=== PATIENT | female | born 1940 | race Caucasian/White ===

== ENCOUNTER → 2017-03-03 | Outpatient (CLI) | payer MEDICARE, OTHER ==
[~2017-03-03] MED LIST: ACET-1311 PO; ASCA500 PO; ASPI81TA28 PO; ATEN100T PO; CARB1SOL OPB; CHOL100010 PO; CLX/20 PO; GLIM1TAB2 PO; HYDR-4330 PO; LOSA100T33 PO; LPT/20 PO; MULT-506 PO; NRV/10 PO; SYN88 PO
[2017-03-03 12:39] LABS: BASO % 0.2 %; BASO ABS # 0.02 K/uL (0-0.2); COMPLETE YES; EOS % 2.1 %; IG% 0.4 %; LYMPH % 7.9 %; LYMPH ABS # 0.88 K/uL (1.2-3.4); MEAN CELL VOLUME 95.9 fL (80-100); MEAN CORPUSCULAR HGB CONC 32.3 g/dl (32-36); MEAN PLATELET VOLUME 10.5 fL (7.4-10.4); MONO % 7.1 %; NEUT % 82.3 %; PLATELET COUNT 288 K/uL (130-400); RED BLOOD COUNT 3.65 M/uL (4.2-5.4); WHITE BLOOD COUNT 11.19 K/uL (4.8-10.8)
[2017-03-03 13:20] LABS: ESTIMATED AVERAGE GLUCOSE 148 mg/dl; HA1C FLAG Normal (Normal)
[2017-03-03 14:36] LABS: URINE PROTIEN/CREAT RATIO 0.1 (0-0.2); URINE TOTAL PROTEIN 15.9 mg/dl (0-11.9)
[2017-03-03 14:56] LABS: ALB/GLOB RATIO 0.9 (0.9-2); ALKALINE PHOSPHATASE 104 U/L (45-117); ALT/SGPT 18 U/L (12-78); AST/SGOT 14 U/L (15-37); BLOOD UREA NITROGEN 39 mg/dl (7-18); BUN/CREATININE RATIO 26.2 (10-20); CALCIUM 8.8 mg/dl (8.5-10.1); CARBON DIOXIDE 24 mmol/L (21-32); CHLORIDE 107 mmol/L (98-107); CHOLESTEROL 146 mg/dl (0-200); CHOLESTEROL/HDL RATIO 1.9; GLUCOSE 164 mg/dl (70-99); HDL CHOLESTEROL 76 mg/dl; LDL CHOLESTEROL CALCULATED 49 mg/dl; POTASSIUM 4.1 mmol/L (3.5-5.1); SODIUM 140 mmol/L (136-145); TRIGLYCERIDES 107 mg/dl (0-150); VERY LOW DENSITY LIPOPROT CALC 21 mg/dl
== END | disposition home or self-care (01) ==
LOC: C.LABPBG 09:26
PROVIDERS: ATTEND Internal Medicine Geriatric Medicine
DX: I12.9 Hypertensive chronic kidney disease with stage 1 through stage 4 chronic kidney disease, or unspecified chronic kidney disease (principal); N18.3 Chronic kidney disease, stage 3 (moderate); E03.9 Hypothyroidism, unspecified; D64.9 Anemia, unspecified; E55.9 Vitamin D deficiency, unspecified; M48.00 Spinal stenosis, site unspecified; E11.22 Type 2 diabetes mellitus with diabetic chronic kidney disease

== ENCOUNTER → 2017-04-15 | Outpatient (CLI) | payer MEDICARE, OTHER ==
--- NOTE | 2017-04-15 14:10 | MAMMOGRAPHY REPORT ---
BILATERAL DIGITAL SCREENING MAMMOGRAM WITH CAD: 04/15/2017 CLINICAL HISTORY: Routine screening. Patient has no complaints. TECHNIQUE: Current study was also evaluated with a Computer Aided Detection (CAD) system. Bilatera l CC and MLO views were obtained. COMPARISON: Comparison is made to exams dated: 01/14/2016 mammogram, 01/11/2015 mammogram, 01/05/2014 mammogram, 12/31/2012 mammogram, 12/25/2011 mammogram, and 12/23/2010 mammogram - [facility] enter. BREAST COMPOSITION: There are scattered areas of fibroglandular density in both breasts. FINDINGS: No suspicious masses, calcifications, or areas of architectural distortion are noted in e ither breast. There has been no significant interval change compared to prior exams. IMPRESSION: ACR BI-RADS CATEGORY 1: NEGATIVE There is no mammographic evidence of malignancy. A 1 year screening mammogram is recommended. The p atient will receive written notification of the results. Approximately 10% of breast cancers are not detected with mammography. A negative mammographic repor t should not delay biopsy if a clinically suggestive mass is present. Brittany Sun M.D. ah/:04/15/2017 07:43:15 [place]er: Aimee YE(Shireen)(M), [facility] letter sent: Normal 1/2 BI-RADS Code: ACR BI-RADS Category 1: Negative
== END | disposition home or self-care (01) ==
LOC: C.MAMM 07:12
PROVIDERS: ATTEND Internal Medicine Geriatric Medicine
DX: Z12.31 Encounter for screening mammogram for malignant neoplasm of breast (principal)

== ENCOUNTER → 2017-06-04 | Outpatient (CLI) | payer MEDICARE, OTHER ==
[~2017-06-04] MED LIST changes: +LOSA100T26 PO; -LOSA100T33 PO
[2017-06-04 12:01] LABS: BASO % 0.4 %; BASO ABS # 0.03 K/uL (0-0.2); COMPLETE YES; EOS % 2.5 %; HEMATOCRIT 34.1 % (37-47); IG% 0.3 %; LYMPH % 17.8 %; LYMPH ABS # 1.33 K/uL (1.2-3.4); MEAN CELL VOLUME 93.7 fL (80-100); MEAN CORPUSCULAR HEMOGLOBIN 31.3 pg (25-34); MEAN CORPUSCULAR HGB CONC 33.4 g/dl (32-36); MEAN PLATELET VOLUME 10.5 fL (7.4-10.4); MONO % 6.9 %; NEUT % 72.1 %; PLATELET COUNT 254 K/uL (130-400); RED BLOOD COUNT 3.64 M/uL (4.2-5.4); WHITE BLOOD COUNT 7.49 K/uL (4.8-10.8)
[2017-06-04 12:38] LABS: BLOOD UREA NITROGEN 34 mg/dl (7-18); BUN/CREATININE RATIO 26.1 (10-20); CALCIUM 8.8 mg/dl (8.5-10.1); CARBON DIOXIDE 27 mmol/L (21-32); CHLORIDE 106 mmol/L (98-107); GLUCOSE 149 mg/dl (70-99); POTASSIUM 4.4 mmol/L (3.5-5.1); SODIUM 139 mmol/L (136-145)
== END | disposition home or self-care (01) ==
LOC: C.LABPBG 08:48
PROVIDERS: ATTEND Internal Medicine Geriatric Medicine
DX: E03.9 Hypothyroidism, unspecified (principal); N18.3 Chronic kidney disease, stage 3 (moderate); I12.9 Hypertensive chronic kidney disease with stage 1 through stage 4 chronic kidney disease, or unspecified chronic kidney disease

== ENCOUNTER → 2017-06-29 | Outpatient (CLI) | payer MEDICARE | END | disposition home or self-care (01) | LOC: C.MAMM 13:41 | PROVIDERS: ATTEND Internal Medicine Geriatric Medicine | DX: E55.9 Vitamin D deficiency, unspecified (principal); M48.00 Spinal stenosis, site unspecified; M85.852 Other specified disorders of bone density and structure, left thigh; M85.851 Other specified disorders of bone density and structure, right thigh ==

== ENCOUNTER → 2017-10-06 | Outpatient (CLI) | payer MEDICARE ==
[~2017-10-06] MED LIST changes: -LOSA100T26 PO; +LOSA100T33 PO
== END | disposition home or self-care (01) ==
LOC: C.LABPBG 07:17
PROVIDERS: ATTEND Internal Medicine Geriatric Medicine
DX: Z00.00 Encounter for general adult medical examination without abnormal findings (principal); E03.9 Hypothyroidism, unspecified

== ENCOUNTER → 2017-11-20 | Outpatient (CLI) | payer MEDICARE ==
[~2017-11-20] MED LIST changes: -LPT/20 PO; +LPT20 PO; +RABE20TA5 PO
[2017-11-20 16:44] LABS: BASO % 0.3 %; BASO ABS # 0.03 K/uL (0-0.2); EOS % 1.3 %; EOS ABS # 0.14 K/uL (0-0.5); HEMATOCRIT 35.3 % (37-47); HEMOGLOBIN 11.8 g/dL (12.0-16.0); IG# 0.02 K/uL (0.00-0.02); LYMPH % 18.6 %; LYMPH ABS # 1.99 K/uL (1.2-3.4); MEAN CELL VOLUME 95.9 fL (80-100); MEAN CORPUSCULAR HEMOGLOBIN 32.1 pg (25-34); MEAN CORPUSCULAR HGB CONC 33.4 g/dl (32-36); MEAN PLATELET VOLUME 10.2 fL (7.4-10.4); MONO % 6.5 %; MONO ABS # 0.69 K/uL (0.11-0.59); NEUT % 73.1 %; NEUT ABS # 7.82 K/uL (1.4-6.5); PLATELET COUNT 287 K/uL (130-400); RED CELL DISTRIBUTION WIDTH CV 13.1 % (11.5-14.5); WHITE BLOOD COUNT 10.69 K/uL (4.8-10.8)
[2017-11-20 17:51] LABS: ALBUMIN 3.7 gm/dl (3.4-5.0); ALT/SGPT 19 U/L (12-78); AST/SGOT 16 U/L (15-37); BLOOD UREA NITROGEN 36 mg/dl (7-18); CALCIUM 8.4 mg/dl (8.5-10.1); CARBON DIOXIDE 25 mmol/L (21-32); CREATININE 1.43 mg/dl (0.60-1.20); GLUCOSE 158 mg/dl (70-99); LIPASE 138 U/L (73-393); POTASSIUM 4.3 mmol/L (3.5-5.1); SODIUM 136 mmol/L (136-145)
[2017-11-20 17:54] LABS: ALKALINE PHOSPHATASE 113 U/L (45-117); TOTAL PROTEIN 8.2 gm/dl (6.4-8.2)
== END | disposition home or self-care (01) ==
LOC: C.LABPBG 13:30
PROVIDERS: ATTEND Internal Medicine Geriatric Medicine
DX: R10.31 Right lower quadrant pain (principal); R11.2 Nausea with vomiting, unspecified

== ENCOUNTER → 2017-11-25 | Outpatient (CLI) | payer MEDICARE ==
[~2017-11-25] MED LIST changes: -RABE20TA5 PO
--- NOTE | 2017-11-25 12:42 | DIAGNOSTIC IMAGING REPORT ---
ABDOMEN AND PELVIS CT WITHOUT CONTRAST CT DOSE: 518.25 mGy.cm HISTORY: R10.31 Abdominal pain, RLQ (right lower quadrant)R11.2 Nausea an TECHNIQUE: Multiaxial CT images of the abdomen and pelvis were performed without contrast. A dose lowering technique was utilized adhering to the principles of ALARA. COMPARISON STUDY: Abdomen and pelvis CT 04/09/2016. FINDINGS: The lung bases are clear. No pneumoperitoneum. No pneumatosis. No suspicious lytic or blastic osseous lesions. Prior L5 posterior decompression is again noted. Small fat-containing hiatal hernia. Trace pericardial fluid, unchanged. Cholecystectomy. The unenhanced liver, spleen, adrenal glands, and pancreas are unremarkable. Mild dilatation of the common bile duct, unchanged. Stable calcified 7 mm splenic artery aneurysm. No retroperitoneal lymphadenopathy. No hydronephrosis. Mild right cortical renal scarring, unchanged. Stable 1.3 cm exophytic hypodense lesion within the upper pole the left kidney. This is incompletely characterized on this noncontrast study but statistically represents a cyst. Multiple duodenal diverticula. The bladder is unremarkable. Prior hysterectomy and appendectomy. Suboptimal evaluation for bowel pathology due to the lack of intravenous and oral contrast. However, no definite bowel wall thickening or obstruction. A few jejunal diverticula. No evidence for diverticulitis. There are few tiny scattered fat-containing midline ventral hernias. These are all below the level of the umbilicus. The neck of the largest hernia measures 1.3 cm. These hernias have decreased in size from the prior study. No evidence for an inguinal hernia. IMPRESSION: 1. No definite bowel wall thickening or obstruction. 2. Small bowel and large bowel diverticula. No evidence for diverticulitis. 3. A few tiny fat-containing midline ventral hernias as described above. Some of these have decreased in size. 4. No evidence for inguinal hernia. 5. Additional findings as described above. Electronically signed by: Umang Martino M.D. 11/25/2017 12:41 PM Dictated Date/Time: 11/25/2017 12:23 PM
== END | disposition home or self-care (01) ==
LOC: C.CTS 11:40
PROVIDERS: ATTEND Physician Assistant
DX: R11.2 Nausea with vomiting, unspecified (principal); R10.31 Right lower quadrant pain

== ENCOUNTER → 2017-12-04 | Day surgery (SDC) | payer MEDICARE ==
[~2017-12-04] VITALS: Ht 149.9 cm; Wt 74.1 kg
[~2017-12-04] MED LIST changes: +LIDOCAINE HCL 2% 2 ML VIAL (20MG/ML) ONE; +PROPOFOL IV EMULSION 10 MG/ML 20 ML VIAL IV ONE; +SODIUM CHLORIDE 0.9% 500ML 500 ML IV ONE
--- NOTE | 2017-12-04 10:01 | Endo History and Physical ---
History & Physical Date of Service: Dec 04, 2017. Chief Complaint: GERD Referring Physician: Dr. Dickson History of Present Illness 77 yo CF who presents for EGD secondary to GERD. Past Medical History Diabetes, Arthritis, ASHD, Gastrointestinal Disorder, Reflux, Blood Dyscrasias, High Cholesterol, Sleep Apnea, Hypertension, Thyroid Disease, Kidney Disease, Depression Past Surgical History Hx Cardiac Surgery: Yes (CARDIAC CATH NO STENT-YRS AGO) Hx Internal Defibrillator: No Hx Pacemaker: No Hx Abdominal Surgery: Yes (C SECTION X 3, HUSTERECTOMY,APPENDECTOMY,ABD SURG FOR PRFORATED BOWEL,) Hx Post-Op Nausea and Vomiting: No Hx Cancer Surgery: No Hx Thoracic Surgery: No Hx Orthopedic: Yes (LUMBAR SURG, R RCR X 3, L RCR ) Hx Urinary Tract Surgery: No Social History Smoking Status: Never Smoker Hx Substance Use: No Hx Alcohol Use: No Allergies Coded Allergies: Adhesives (Verified Allergy, Unknown, red/blistered skin, 05/16/16) Carvedilol (Unverified Allergy, Unknown, UNKNOWN, 05/16/16) Latex1 -Allergic Contact Dermititis (Verified Allergy, Unknown, CONTACT DERMATITIS, 05/16/16) Cephalexin (Verified Adverse Reaction, Intermediate, DIARRHEA, 05/16/16) Oxycodone (Verified Adverse Reaction, Intermediate, itching, 05/16/16) Butter Oil (Unverified Adverse Reaction, Unknown, DIARRHEA, 05/16/16) Fentanyl (Unverified Adverse Reaction, Unknown, DIARRHEA, 05/16/16) Fluoxetine (Unverified Adverse Reaction, Unknown, DIARRHEA, 05/16/16) Levofloxacin (Verified Adverse Reaction, Unknown, DIARRHEA, 05/16/16) Meperidine (Verified Adverse Reaction, Unknown, HEADACHES, 05/16/16) Metformin (Unverified Adverse Reaction, Unknown, DIARRHEA, 05/16/16) Omeprazole (Verified Adverse Reaction, Unknown, HALLUCINATIONS, 05/16/16) Phenobarbital (Verified Adverse Reaction, Unknown, HALLUCINATIONS, 05/16/16) Sulfa Drugs (Verified Adverse Reaction, Unknown, DIARRHEA, 05/16/16) Current Medications Reported Home Medications Medications Dose Route/Sig Max Daily Dose Days Date Category Dose Instructions Lortab 5-325 mg (Hydrocodone-Acetaminophen) 1 Tab Tab 5 Mg PO TID 05/16/16 Rx Refresh (Carboxymethylcellulose Sodium) 1 % Floyd 1-2 Drops OPB BID 05/15/16 Reported Tylenol (Acetaminophen) 325 Mg Tab 650 Mg PO PRN 05/08/16 Reported Losartan Potassium/Hydroc (Losartan Potassium & Hydrochlo) 1 Tab Tab 1 Tab PO QAM 90 05/08/16 Reported 100/25 MG Citalopram Hydrobromide (Citalopram) 20 Mg Tab 20 Mg PO HS 04/04/16 Reported Atorvastatin Calcium (Atorvastatin) 20 Mg Tab 20 Mg PO QAM 04/04/16 Reported Amlodipine Besylate 10 Mg Tab 10 Mg PO QAM 04/04/16 Reported Synthroid (Levothyroxine Sodium) 88 Mcg Tab 88 Mcg PO QAM 04/04/16 Reported Glimepiride 1 Mg Tab 0.5 Mg PO QAM 04/04/16 Reported Aspirin Ec (Aspirin) 81 Mg Tab 81 Mg PO HS 11/23/14 Reported Vitamin C (Ascorbic Acid) 500 Mg Tab 500 Mg PO QAM 11/23/14 Reported Multivitamin (Multivitamins) Tab 1 Tab PO QAM 11/23/14 Reported Vitamin D (Cholecalciferol) 1,000 Inter.unit Tab 2,000 Inter.unit PO QAM 11/23/14 Reported Tenormin (Atenolol) 100 Mg Tab 100 Mg PO QAM 06/10/12 Reported Physical Exam General Appearance: WD/WN, no apparent distress Respiratory/Chest: Auscultation: breath sounds normal Cardiovascular: Heart Auscultation: RRR Abdomen: Bowel Sounds: normal Inspection & Palpation: soft, non-distended, no tenderness, guarding & rebound Assessment and Plan Assessment: 77 yo CF who presents for EGD secondary to GERD. Plan: Proceed with EGD
[2017-12-04 10:12] VITALS: Ht 149.9 cm; Wt 74.1 kg
--- NOTE | 2017-12-04 10:47 | GI REPORT ---
Procedure Date: 12/04/2017 10:35 AM Procedure: Upper GI endoscopy Indications: Gastro-esophageal reflux disease Medicines: Monitored Anesthesia Care Complications: No immediate complications. Estimated Blood Loss: Estimated blood loss: none. Procedure: Pre-Anesthesia Assessment: - Prior to the procedure, a History and Physical was performed, and patient medications and allergies were reviewed. The patient's tolerance of previous anesthesia was also reviewed. The risks and benefits of the procedure and the sedation options and risks were discussed with the patient. All questions were answered, and informed consent was obtained. Prior Anticoagulants: The patient has taken aspirin, last dose was 1 day prior to procedure. ASA Grade Assessment: III - A patient with severe systemic disease. After reviewing the risks and benefits, the patient was deemed in satisfactory condition to undergo the procedure. After obtaining informed consent, the endoscope was passed under direct vision. Throughout the procedure, the patient's blood pressure, pulse, and oxygen saturations were monitored continuously. The On-site loaner was introduced through the mouth, and advanced to the second part of duodenum. The upper GI endoscopy was accomplished without difficulty. The patient tolerated the procedure well. Findings: The esophagus was normal. A small hiatal hernia was present. Localized mild inflammation characterized by erythema was found in the gastric antrum. Biopsies were taken with a cold forceps for histology. The examined duodenum was normal. Impression: - Normal esophagus. - Small hiatal hernia. - Gastritis. Biopsied. - Normal examined duodenum. Recommendation: - Resume previous diet. - Use sucralfate tablets 1 gram PO QID for 10 days. - Continue present medications. - Await pathology results. - Return to GI office as previously scheduled. Adrián Cabezas DO 12/04/2017 10:47:28 AM This report has been signed electronically. Note Initiated On: 12/04/2017 10:35 AM I attest to the content of the Intraoperative Record and orders documented therein, exceptions below
--- NOTE | 2017-12-04 10:50 | Discharge Instructions ---
Endoscopy Patient Instructions Date / Procedure(s) Performed Dec 04, 2017. EGD Allergy Information Coded Allergies: Adhesives (Verified Allergy, Unknown, red/blistered skin, 12/04/17) Carvedilol (Unverified Allergy, Unknown, UNKNOWN, 12/04/17) Latex1 -Allergic Contact Dermititis (Verified Allergy, Unknown, CONTACT DERMATITIS, 12/04/17) Cephalexin (Verified Adverse Reaction, Intermediate, DIARRHEA, 12/04/17) Oxycodone (Verified Adverse Reaction, Intermediate, itching, 12/04/17) Butter Oil (Unverified Adverse Reaction, Unknown, DIARRHEA, 12/04/17) Fentanyl (Unverified Adverse Reaction, Unknown, DIARRHEA, 05/16/16) Fluoxetine (Unverified Adverse Reaction, Unknown, DIARRHEA, 05/16/16) Levofloxacin (Verified Adverse Reaction, Unknown, DIARRHEA, 05/16/16) Meperidine (Verified Adverse Reaction, Unknown, HEADACHES, 05/16/16) Metformin (Unverified Adverse Reaction, Unknown, DIARRHEA, 05/16/16) Omeprazole (Verified Adverse Reaction, Unknown, HALLUCINATIONS, 05/16/16) Phenobarbital (Verified Adverse Reaction, Unknown, HALLUCINATIONS, 05/16/16) Sulfa Drugs (Verified Adverse Reaction, Unknown, DIARRHEA, 05/16/16) Discharge Date / Findings Dec 04, 2017. Gastritis s/p biopsies Hiatal hernia Medication Instructions Stopped Medication(s): ASA 81 mg OK to resume all medications today as prescribed Reported Home Medications Medications Dose Route/Sig Max Daily Dose Days Date Category Dose Instructions Lortab 5-325 mg (Hydrocodone-Acetaminophen) 1 Tab Tab 5 Mg PO TID 05/16/16 Rx Refresh (Carboxymethylcellulose Sodium) 1 % Floyd 1-2 Drops OPB BID 05/15/16 Reported Tylenol (Acetaminophen) 325 Mg Tab 650 Mg PO PRN 05/08/16 Reported Hyzaar 12.5MG/100MG (Hctz/Losartan) 1 Tab Tab 1 Tab PO QAM 90 05/08/16 Reported 100/25 MG Citalopram Hydrobromide (Citalopram) 20 Mg Tab 20 Mg PO HS 04/04/16 Reported Lipitor (Atorvastatin Calcium) 20 Mg Tab 20 Mg PO QAM 04/04/16 Reported Amlodipine Besylate 10 Mg Tab 10 Mg PO QAM 04/04/16 Reported Synthroid (Levothyroxine Sodium) 88 Mcg Tab 88 Mcg PO QAM 04/04/16 Reported Glimepiride 1 Mg Tab 0.5 Mg PO QAM 04/04/16 Reported Aspirin Ec (Aspirin) 81 Mg Tab 81 Mg PO HS 11/23/14 Reported Vitamin C (Ascorbic Acid) 500 Mg Tab 500 Mg PO QAM 11/23/14 Reported Multivitamin (Multivitamins) Tab 1 Tab PO QAM 11/23/14 Reported Vitamin D (Cholecalciferol) 1,000 Inter.unit Tab 2,000 Inter.unit PO QAM 11/23/14 Reported Tenormin (Atenolol) 100 Mg Tab 100 Mg PO QAM 06/10/12 Reported Provider Instructions Activity Restrictions - No exercising or heavy lifting for 24 hours. - Do not drink alcohol the day of the procedure. - Do not drive a car or operate machinery until the day after the procedure. - Do not make any important decisions or sign important papers in 24 hours after the procedure. Following Day: - Return to full activity which may include returning to work/school. Diet Start your diet with liquids and light foods (jello, soup, juice, toast). Then eat your usual diet if not nauseated. Treatment For Common After Affects For mild abdominal pain, bloating, or excessive gas: - Rest - Eat lightly - Lie on right side Follow-Up Information Follow-up with Dr Hernandez Dickson as scheduled Anesthesia Information What You Should Know You have had a procedure that required some medicine to reduce anxiety and discomfort. This treatment is called moderate sedation. After receiving the treatment, you may be sleepy, but you will be able to breathe on your own. The effects of the treatment may last for several hours. Follow these instructions along with Activity/Diet recommendations noted above: * Do NOT do anything where dizziness or clumsiness would be dangerous. * Rest quietly at home today, then you can be up and about tomorrow. * Have a responsible person stay with you the rest of today. * You may have had an I.V. today. If so, you may take the dressing off later today. Recommendations Call your doctor if: * Trouble breathing * Continuous vomiting for more than 24 hours * Temperature above 101 degrees * Severe abdominal pain or bloating * Pain not relieved by pain medicine ordered * There is increased drainage or redness from any incision * A large amount of rectal bleeding greater than 2-3 tablespoons. (If you had a polyp/s removed or have hemorrhoids, a small amount of blood - from the rectum is to be expected.) * You have any unanswered questions or concerns. IN THE EVENT OF A SERIOUS EMERGENCY, GO TO THE NEAREST EMERGENCY ROOM Your discharge instructions were prepared by provider Adrián Cabezas. Patient Instructions Signature Page Margaret Breaux Patient (or Guardian) Signature/Date: I have read and understand the instructions given to me by my caregivers. Caregiver/RN/Doctor Signature/Date: The above-named patient and/or guardian has received patient instructions on this date. + Original Patient Signature Page (only) stays with chart. Please make copy for patient.
--- NOTE | 2017-12-04 11:16 | Anesthesiology Progress Note ---
Anesthesia Post Op Note Date & Time Dec 04, 2017 at 11:16 Vital Signs Pain Intensity: 0 Vital Signs Past 12 Hours Date Time Temp Pulse Resp B/P (MAP) Pulse Ox O2 Delivery O2 Flow Rate FiO2 12/04/17 11:04 62 20 130/59 (82) 98 Room Air 12/04/17 10:49 70 20 108/49 (68) 97 Room Air 12/04/17 10:30 36.9 69 20 168/75 (106) 97 Room Air Notes Mental Status: alert / awake / arousable, participated in evaluation Pt Amnestic to Procedure: Yes Nausea / Vomiting: adequately controlled Pain: adequately controlled Airway Patency, RR, SpO2: stable & adequate BP & HR: stable & adequate Hydration State: stable & adequate Anesthetic Complications: no major complications apparent
[2017-12-04 11:18] VITALS: BP 145/52; PULSE 69; O2SAT 98
== END | disposition home or self-care (01) ==
LOC: C.GI 09:39
PROVIDERS: ATTEND Internal Medicine
DX: K21.9 Gastro-esophageal reflux disease without esophagitis (principal); K44.9 Diaphragmatic hernia without obstruction or gangrene; K29.60 Other gastritis without bleeding; E11.9 Type 2 diabetes mellitus without complications; I25.10 Atherosclerotic heart disease of native coronary artery without angina pectoris; E78.00 Pure hypercholesterolemia, unspecified; Z91.040 Latex allergy status; Z90.89 Acquired absence of other organs; Z90.710 Acquired absence of both cervix and uterus; Z98.890 Other specified postprocedural states; Z79.899 Other long term (current) drug therapy; Z79.82 Long term (current) use of aspirin; Z88.1 Allergy status to other antibiotic agents; Z88.2 Allergy status to sulfonamides; Z88.5 Allergy status to narcotic agent

== ENCOUNTER → 2017-12-10 | Outpatient (CLI) | payer OTHER ==
[~2017-12-10] MED LIST changes: -LIDOCAINE HCL 2% 2 ML VIAL (20MG/ML) ONE; -PROPOFOL IV EMULSION 10 MG/ML 20 ML VIAL IV ONE; -SODIUM CHLORIDE 0.9% 500ML 500 ML IV ONE
--- NOTE | 2017-12-10 12:48 | DIAGNOSTIC IMAGING REPORT ---
(RENAL)RETROPERITON COMP HISTORY: Hypertension I10 [id number] PAD (peripheral artery disease)N18.3 Stage COMPARISON: None. FINDINGS: Right kidney: 8.6 cm maximum dimension. No evidence for hydronephrosis. Cortical scarring and thinning throughout. Left kidney: Maximum dimension 9.6 cm. 1.8 cm cyst. No evidence for hydronephrosis. Considerable cortical scarring and cortical thinning Bladder: No bladder wall thickening. The bilateral ureteral jets were identified. IMPRESSION: 1. Considerable cortical scarring and thinning of both kidneys. 2. No evidence hydronephrosis. The above report was generated using voice recognition software. It may contain grammatical, syntax or spelling errors. Electronically signed by: Nguyễn Garcia M.D. 12/10/2017 12:47 PM Dictated Date/Time: 12/10/2017 12:45 PM
[2017-12-10 13:07] LABS: HEMATOCRIT 34.7 % (37-47); HEMOGLOBIN 11.9 g/dL (12.0-16.0); MEAN CORPUSCULAR HEMOGLOBIN 31.9 pg (25-34); MEAN CORPUSCULAR HGB CONC 34.3 g/dl (32-36); MEAN PLATELET VOLUME 9.9 fL (7.4-10.4); PLATELET COUNT 288 K/uL (130-400); RED CELL DISTRIBUTION WIDTH CV 12.8 % (11.5-14.5); RED CELL DISTRIBUTION WIDTH SD 43.5 fL (36.4-46.3); WHITE BLOOD COUNT 8.56 K/uL (4.8-10.8)
[2017-12-10 13:35] LABS: ALBUMIN 3.7 gm/dl (3.4-5.0); BLOOD UREA NITROGEN 29 mg/dl (7-18); CALCIUM 8.7 mg/dl (8.5-10.1); CARBON DIOXIDE 27 mmol/L (21-32); CREATININE 1.38 mg/dl (0.60-1.20); GLUCOSE 124 mg/dl (70-99); PHOSPHORUS 4.8 mg/dl (2.5-4.9); POTASSIUM 4.3 mmol/L (3.5-5.1); SODIUM 131 mmol/L (136-145)
== END | disposition home or self-care (01) ==
LOC: C.ULTR 12:08
PROVIDERS: ATTEND Internal Medicine Nephrology
DX: D64.9 Anemia, unspecified (principal); I12.9 Hypertensive chronic kidney disease with stage 1 through stage 4 chronic kidney disease, or unspecified chronic kidney disease; I73.9 Peripheral vascular disease, unspecified; N18.3 Chronic kidney disease, stage 3 (moderate); E55.9 Vitamin D deficiency, unspecified

== ENCOUNTER → 2018-02-09 | Outpatient (CLI) | payer MEDICARE ==
[2018-02-09 13:13] LABS: BASO % 0.2 %; BASO ABS # 0.02 K/uL (0-0.2); EOS % 2.5 %; EOS ABS # 0.21 K/uL (0-0.5); HEMATOCRIT 34.9 % (37-47); HEMOGLOBIN 11.5 g/dL (12.0-16.0); IG# 0.02 K/uL (0.00-0.02); LYMPH % 15.4 %; MEAN CELL VOLUME 95.9 fL (80-100); MEAN CORPUSCULAR HEMOGLOBIN 31.6 pg (25-34); MEAN PLATELET VOLUME 10.2 fL (7.4-10.4); MONO % 6.6 %; MONO ABS # 0.56 K/uL (0.11-0.59); NEUT % 75.1 %; NEUT ABS # 6.32 K/uL (1.4-6.5); PLATELET COUNT 286 K/uL (130-400); RED CELL DISTRIBUTION WIDTH CV 13.3 % (11.5-14.5); WHITE BLOOD COUNT 8.43 K/uL (4.8-10.8)
[2018-02-09 14:18] LABS: ALBUMIN 3.5 gm/dl (3.4-5.0); ALT/SGPT 36 U/L (12-78); BLOOD UREA NITROGEN 28 mg/dl (7-18); CALCIUM 8.4 mg/dl (8.5-10.1); CARBON DIOXIDE 25 mmol/L (21-32); CHOLESTEROL 161 mg/dl (0-200); CREATININE 1.39 mg/dl (0.60-1.20); GLUCOSE 167 mg/dl (70-99); POTASSIUM 4.1 mmol/L (3.5-5.1); SODIUM 139 mmol/L (136-145)
[2018-02-09 14:29] LABS: ALKALINE PHOSPHATASE 116 U/L (45-117); AST/SGOT 24 U/L (15-37); LDL CHOLESTEROL CALCULATED 62 mg/dl; TOTAL PROTEIN 7.6 gm/dl (6.4-8.2)
[2018-02-10 06:17] LABS: HEMOGLOBIN A1C 7.4 % (4.5-5.6)
== END | disposition home or self-care (01) ==
LOC: C.LABPBG 09:15
PROVIDERS: ATTEND Internal Medicine Geriatric Medicine
DX: I12.9 Hypertensive chronic kidney disease with stage 1 through stage 4 chronic kidney disease, or unspecified chronic kidney disease (principal); E03.9 Hypothyroidism, unspecified; N18.3 Chronic kidney disease, stage 3 (moderate); D64.9 Anemia, unspecified; E55.9 Vitamin D deficiency, unspecified; E11.9 Type 2 diabetes mellitus without complications; E78.5 Hyperlipidemia, unspecified

== ENCOUNTER → 2018-02-17 | Outpatient (CLI) | payer MEDICARE ==
--- NOTE | 2018-02-17 08:16 | DIAGNOSTIC IMAGING REPORT ---
MRI OF THE BRAIN WITHOUT CONTRAST CLINICAL HISTORY: Transient ischemic attack. COMPARISON STUDY: MRI of the brain July 16, [address] May 09, 2015. TECHNIQUE: Utilizing a 1.5 Bea magnet and dedicated coil, multiplanar, multiecho imaging of the brain was performed without IV contrast. FINDINGS: There are no foci of restricted diffusion. No acute intracranial hemorrhage, midline shift or mass effect is present. Moderate cerebral and cerebellar atrophy is noted. White matter T2 hyperintense foci suggest moderate small vessel disease. No intracranial masses are identified on this unenhanced exam. Basilar cisterns are patent. There are no extra axial collections. Mild ventricular dilatation is due to atrophy. Small amount of fluid within left mastoid air cells is unchanged. Calvarial signal is maintained. There is mild mucosal thickening of the ethmoid sinuses. IMPRESSION: 1. No acute intracranial findings. 2. Moderate atrophy and small vessel disease. Electronically signed by: Tariq Ortega M.D. 02/17/2018 8:15 AM Dictated Date/Time: 02/17/2018 8:11 AM
== END | disposition home or self-care (01) ==
LOC: C.MRI 07:40
PROVIDERS: ATTEND Internal Medicine Geriatric Medicine
DX: G45.9 Transient cerebral ischemic attack, unspecified (principal)

== ENCOUNTER → 2018-03-18 | Outpatient (CLI) | payer MEDICARE ==
[~2018-03-18] VITALS: Ht 152.4 cm; Wt 77.4 kg
[2018-03-18 13:03] VITALS: BP 132/64; PULSE 71; Ht 152.4 cm; Wt 77.4 kg
== END | disposition home or self-care (01) ==
LOC: C.NEUR 10:58
PROVIDERS: ATTEND Internal Medicine Pulmonary Disease
DX: G47.33 Obstructive sleep apnea (adult) (pediatric) (principal); E11.9 Type 2 diabetes mellitus without complications; E78.5 Hyperlipidemia, unspecified; K21.9 Gastro-esophageal reflux disease without esophagitis; Z79.899 Other long term (current) drug therapy; Z79.82 Long term (current) use of aspirin; Z88.1 Allergy status to other antibiotic agents; Z88.2 Allergy status to sulfonamides; Z88.8 Allergy status to other drugs, medicaments and biological substances; Z91.040 Latex allergy status

== ENCOUNTER → 2018-06-10 | Outpatient (CLI) | payer MEDICARE ==
[~2018-06-10] MED LIST changes: -ASCA500 PO; -CARB1SOL OPB; -CHOL100010 PO; -CLX/20 PO; -HYDR-4330 PO; +RABE20TA5 PO
--- NOTE | 2018-06-10 15:47 | EEG Procedure Note ---
EEG Procedure Note Date of Service Jun 10, 2018. Start / End Times Start Time: 1028 End Time: [address] Archer History 78-year-old with history of recent seizure activity. Home Medication List Scheduled Acetaminophen (Tylenol), 650 MG PO PRN Amlodipine Besylate (Amlodipine Besylate), 10 MG PO QAM Aspirin (Aspirin Ec), 81 MG PO HS Atenolol (Tenormin), 100 MG PO QAM Atorvastatin (Lipitor), 20 MG PO QAM Glimepiride (Glimepiride), 0.5 MG PO QAM Hctz/Losartan (Hyzaar 12.5MG/100MG), 1 TAB PO QAM Levothyroxine Sodium (Synthroid), 88 MCG PO QAM Multivitamin (Multivitamin), 1 TAB PO QAM Rabeprazole Sodium (Aciphex), 20 MG PO DAILY Description This is a 21 electrode EEG with a single channel dedicated to limited EKG. The electrodes were placed in accordance with the International 10-20 system. Interpretation The predominant background activity consists of a fairly well modulated 9-10 hertz activity seen over the posterior head regions bilaterally spreading anteriorly. This activity attenuates nicely with eye opening and other alerting procedures. A mild amount of muscle and movement artifact activity contaminate the recording entering interpretation from time to time but not to any significant degree overall. Photic stimulation produced some driving response at a few low to mid flash frequencies with no abnormal responses seen. Hyperventilation was not performed. Throughout this recording no focal abnormalities, potentially epileptogenic discharges, or abnormal slow activity was seen. Patient entered the drowsy state from time to time with no further activation and deeper stages of sleep were not recorded. In summary, this study is normal during wakefulness and brief periods of drowsiness. No focal abnormalities are noted and no potentially epileptogenic discharges were seen. Clinical Correlation The absence of potentially epileptogenic activity does not exclude a seizure disorder since inter ictally EEGs can be normal in clinical correlation is required.
== END | disposition home or self-care (01) ==
LOC: C.NEUR 10:10
PROVIDERS: ATTEND Psychiatry & Neurology Neurology
DX: R56.9 Unspecified convulsions (principal)

== ENCOUNTER → 2018-07-08 | Outpatient (CLI) | payer MEDICARE ==
--- NOTE | 2018-07-08 13:14 | DIAGNOSTIC IMAGING REPORT ---
R KNEE 1 OR 2 VIEWS ROUTINE CLINICAL HISTORY: Right knee pain. Right leg edema. COMPARISON: Right knee MRI May 02, 2009. FINDINGS: Alignment of the right knee is anatomic. There is moderate medial compartment joint space narrowing with osteophytosis. There is also joint space narrowing with osteophytosis within the patellofemoral compartment. There is no acute fracture. A small joint effusion is present. There is moderate vascular calcification. IMPRESSION: 1. No acute fracture. 2. 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 3. Small right knee joint effusion. Electronically signed by: Tariq Ortega M.D. 07/08/2018 1:12 PM Dictated Date/Time: 07/08/2018 1:11 PM
--- NOTE | 2018-07-08 13:35 | DIAGNOSTIC IMAGING REPORT ---
ULTRASOUND RIGHT LOWER EXTREMITY VENOUS CLINICAL HISTORY: Right lower extremity edema. COMPARISON STUDY: Right lower extremity venous ultrasound dated 05/15/2014. TECHNIQUE: Real-time, grayscale, and color Doppler sonography of the deep veins of the right lower extremity was performed from the inguinal crease to the calf. Compression and augmentation were utilized. FINDINGS: There is no sonographic evidence of deep venous thrombosis identified in the right lower extremity. The common femoral, superficial femoral, and popliteal veins are patent and normally compressible. The greater saphenous vein and the profunda femoris vein at the junction with the common femoral vein are clear. The visualized calf veins are patent. A popliteal cyst measures 3.9 x 0.7 x 1.5 cm. IMPRESSION: 1. There is no sonographic evidence of deep venous thrombosis identified in the right lower extremity. 2. Popliteal cyst. Electronically signed by: Ridge Valerio M.D. 07/08/2018 1:34 PM Dictated Date/Time: 07/08/2018 1:33 PM
== END | disposition home or self-care (01) ==
LOC: C.ULTRBC 12:17
PROVIDERS: ATTEND Physician Assistant Medical
DX: R60.0 Localized edema (principal); M17.11 Unilateral primary osteoarthritis, right knee; M25.461 Effusion, right knee; M71.21 Synovial cyst of popliteal space [Baker], right knee

== ENCOUNTER 2019-03-20 05:11 | Observation (INO) ==
[2019-03-20 05:20] VITALS: TEMP 98.1
[2019-03-20] MEDS ORDERED: GI COCKTAIL ED USE PO ONE (05:24)
[2019-03-20 05:35] LABS: Basophils # (auto) 0.02 K/uL (0-0.2); Basophils % (auto) 0.2 %; Eosinophils # (auto) 0.09 K/uL (0-0.5); Eosinophils % (auto) 0.7 %; Hematocrit (blood only) 32.6 % (37-47); Hemoglobin 11.3 g/dL (12.0-16.0); Immature Granulocytes # (auto) 0.02 K/uL (0.00-0.02); Immature Granulocytes % (auto) 0.2 %; Lymphocytes # (auto) 0.81 K/uL (1.2-3.4); Lymphocytes % (auto) 6.6 %; Mean Corpuscular Hgb Conc 34.7 g/dL (32-36); Mean Corpuscular Volume 93.7 fL (80-100); Mean Platelet Volume 9.1 fL (7.4-10.4); Monocytes # (auto) 0.66 K/uL (0.11-0.59); Monocytes % (auto) 5.4 %; Neutrophils % (auto) 86.9 %; Platelet Count 234 K/uL (130-400); RDW Coefficient of Variation 12.5 % (11.5-14.5); RDW Standard Deviation 42.1 fL (36.4-46.3); Red Blood Count 3.48 M/uL (4.2-5.4)
[2019-03-20 05:51] LABS: Blood Urea Nitrogen 34 mg/dl (7-18); Carbon Dioxide 25 mmol/L (21-32); Chloride 103 mmol/L (98-107); Est GFR (African American) 43.3; Potassium 4.1 mmol/L (3.5-5.1); Sodium 136 mmol/L (136-145)
[2019-03-20 05:52] LABS: Alanine Aminotransferase 74 U/L (12-78); Albumin Level 3.6 gm/dl (3.4-5.0); Aspartate Aminotransferase 36 U/L (15-37); BUN Creatinine Ratio 25.4 (10-20); Bilirubin Direct 0.1 mg/dl (0-0.2); Calcium 8.6 mg/dl (8.5-10.1); Creatinine Clr Calc Pharmacy 29.5 ml/min; Est GFR (Non-African American) 37.3; Glucose 203 mg/dl (70-99)
[2019-03-20 05:57] LABS: Alkaline Phosphatase 146 U/L (45-117); Bilirubin,Total 0.4 mg/dl (0.2-1); Total Protein 7.5 gm/dl (6.4-8.2); Troponin I < 0.015 ng/ml (0-0.045)
[2019-03-20] MEDS ORDERED: NITROGLYCERIN SL 0.4 MG/TAB TAB SL STA (06:09)
[2019-03-20] MEDS ORDERED: ASPIRIN 81 MG CHEW PO STA (06:09)
[2019-03-20] MEDS ORDERED: fentaNYL citrate 100 MCG/2 ML VIAL IV STA (06:44)
--- NOTE | 2019-03-20 08:04 | XRay Report ---
SINGLE VIEW CHEST CLINICAL HISTORY: Atypical chest pain. FINDINGS: An AP, portable, upright chest radiograph is compared to study dated 12/20/2018 and correlate d with chest CT dated 07/21/2018. The examination is degraded by portable technique and patient rotatio n. The heart is enlarged and there is atherosclerotic calcification of the thoracic aorta. The pulmo nary vasculature is noncongested. Chronic interstitial thickening is similar previous. Atelectasis is noted at the left lung base. No airspace consolidation or large pleural effusion is identified. No p neumothorax is seen. The skeletal structures are osteopenic. The bony thorax is grossly intact. Posto perative change is noted in the left humeral head. IMPRESSION: Cardiomegaly with no acute cardiopulmonary abnormality. Electronically signed by: Ridge Valerio M.D. 03/20/2019 8:03 AM
--- NOTE | 2019-03-20 08:29 | Emergency Department Note ---
Entered by Desiree Ulloa acting as a scribe for ED Provider Note Chief complaint: Chest pain The patient is an 79 year old female presenting to the Emergency Department complaining of intermittent chest pain starting 1 day ago. The patient reports that she has chest pain that radiates across her entire chest. She states that she is nauseous and has had episodes of vomiting and diarrhea. She notes that she has not experienced these symptoms before. 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 She denies any history of heart attack, syncope, lower extremity swelling and recent travel. ROS: See above HPI for pertinent positives & negatives. A total of 10 systems reviewed and were otherwise negative. Past Medical History: Hiatal hernia, sleep apnea, HTN, HLD, Benign essential tremor, Depression, TIA, Macular degeneration. DM, GERD, IBS, Diverticular disease, CKD, Osteoarthritis, Obesity, RLS, Anxiety. Past Surgical History: Cholecystectomy, Thyroidectomy, Cardiac cath, Right sided carotid endarterectomy, Bowel resection, Back surgery, , Appendectomy, Inguinal hernia repair, TIA, Abdominal hysterectomy and bilateral salpingo- oophorectomy, Tubal ligation, Repair of rotator cuff, Blepharoplasty, Lumpectomy of right breast, Reaction to anesthesia, Herniorrhaphy. Family History: Diabetes mellitits, Colon cancer. Social History: Feels safe at home. Never a smoker. Home Medications: Amlodipine 10 mg PO, Vitamin C 500 mg PO, Aspirin low dose 81 mg PO, Atenolol 100 mg PO, Atorvastatin 20 mg PO, Vitamin D3 1000 unit PO, Glimepiride 2 mg PO, [place] 1 - 2 tab PO, Levothyroxine 88 mcg PO, Losartan Hydrochlorothiazide 1 tab PO, Aciphex 20 mg PO. Allergies: Adhesive, Latex, Carvedilol, Omeprazole, Oxycodone, Phenobarbital, Cephalexin, Fentanyl. Fluoxetine, Levofloxacin, Meperidine, Metformin, Sulfa, Butter oil. Physical: Vitals: BP: 161/75, Pulse: 91, Respirations: 18, Temperature: 98.1F, O2 Saturation: 98, Delivery: Room Air. Exam: GENERAL: Patient is anxious appearing and in no acute distress. EYES: No scleral icterus, unremarkable pupils. ENT: Mucous membranes moist, no nasal congestion. NECK: No masses appreciated, no meningismus, trachea is midline. RESPIRATORY: No dyspnea. Clear to auscultation and equal bilaterally. No wheeze, no rhonchi. CARDIOVASCULAR: Regular rate and rhythm. No murmurs, rubs, gallops appreciated. GASTROINTESTINAL: Abdomen soft, non-tender, no peritonitis. Bowel sounds positive. No masses appreciated. Well healed lower abdominal incision. BACK: No midline tenderness, no CVA tenderness EXTREMITIES: Normal motion all extremities, no cyanosis, no edema. NEUROLOGIC: Alert and oriented, no acute motor or sensory deficits, no focal weakness, cranial nerves grossly intact. SKIN: No rash, no jaundice, no diaphoresis. ED Course: 515: Prior Medical Record, Triage/Nursing Notes, Medications reviewed by Me. The patient was evaluated in room B9, and a complete history and physical examination were performed. 609: I reevaluated the patient at this time who reports minimal improvement with GI cocktail. I ordered Aspirin and Nitroglycerin. 15: I discussed the patients case with [facility] [place] admitting team. They will evaluate the patient for further management. Labs reviewed and remarkable for wnl cbc, bmp, lft, trop Vital Signs reviewed and remarkable for HTN Imaging: X ray results are stated below per my interpretation: Chest: 1 view: No infiltrate, no effusion, normal cardiac border. EKG: Per My Interpretation: Indication chest pain: NSR 90 bpm no ectopy no ischemia. Unable to see previous EKGs. QTC 433 Consults: none Blood pressure: Elevated - Referred to Hospitalist Differentials: Cardiac Ischemia (STEMI, NSTEMI, Unstable Angina, etc), Aortic Dissection, Arrhythmia, Pulmonary Embolism, Pneumonia, Pneumothorax, MSK, Infectious,Pericarditis/Myocarditis, Esophageal Rupture, Gastrointestinal amongst other pathologies. Medical Decision Makin yr old female with exertional chest pain. No improvement with GI cocktail. Mild improvement with nitro. Worse with exertion to bathroom though repeat EKG unchanged. CXR looks good. Story not consistent with PE/Dissection. Without breathlessness nor tachy I do not feel CT A at this time indicated. She was stable throughout. Agreeable to hospitalization treatment. Soft abdomen with normal LFTs. No clear evidence infection. Impression: Substernal Chest Pain Alex Martel MD The scribe's documentation has been prepared under my direction and personally reviewed by me in its entirety. I confirm that the note above accurately reflects all work, treatment, procedures, and medical decision making performed by me. Impression & Plan Substernal chest pain Past Med/Surg History Medical History Anxiety Benign essential tremor Chronic kidney disease, stage III (moderate) Depression Diabetes mellitus, type 2 NIDDM Diverticular disease HX DIVERTICULITIS PER RECORDS GERD (gastroesophageal reflux disease) Hiatal hernia History of blood transfusion POST-OP PER RECORDS History of palpitations Hx of intestinal obstruction 50 YEARS AGO PER RECORDS Hyperlipidemia Hypertension IBS (irritable bowel syndrome) Macular degeneration Obesity Osteoarthritis RLS (restless legs syndrome) Sleep apnea NO DEVICE Transient ischemic attack (TIA) 03/2018 Surgical History Family history of reaction to anesthesia SON-HARD TIME WAKING UP. History of appendectomy History of back surgery History of blepharoplasty History of bowel resection History of cardiac cath X2 TOTAL (10+ YEARS AGO)= NO STENTS History of section X3 History of cholecystectomy History of herniorrhaphy VENTRAL HERNIA History of inguinal hernia repair X3 (CHILD) History of lumpectomy of right breast "BENIGN History of repair of rotator cuff RIGHT X3, LEFT X 1 History of right-sided carotid endarterectomy 3+ YEARS AGO History of thyroidectomy History of total abdominal hysterectomy and bilateral salpingo-oophorectomy History of tubal ligation Family History Son Family history of reaction to anesthesia SLOW TO WAKE Brother Family history of diabetes mellitus Sister Family history of diabetes mellitus Mother Family history of diabetes mellitus Uncle Family hx of colon cancer X 3 Social History Preferred Language: Burmese Communication Ability: Effective Beliefs That Will Affect Care: None Current Living Situation: Spouse Feels Safe at Home: Yes Smoking Status: Never smoker Second Hand Exposure: Yes (as a child) Hx Alcohol Use: No Hx Substance Use: No Results & Data Vital Signs Vital Signs - 24 hr 03/20/19 05:17 03/20/19 05:23 03/20/19 05:40 Temperature 36.7 C Temperature Source Oral Sepsis Recent Fever Within 48 Hours No Sepsis Action Taken by Nursing No Action Required Pulse Rate 91 H 91 H 86 Pulse Rate [Apical] Pulse Rate from SpO2 Sensor 92 H Pulse Rhythm [Apical] Respiratory Rate 25 H 28 H 17 Respiratory Effort / Characteristics Non-Labored Respiratory Depth Normal Respiratory Pattern Blood Pressure 161/75 H Blood Pressure [Right Arm] Blood Pressure Mean 103 Blood Pressure Mean [Right Arm] Pulse Oximetry 98 Oxygen Delivery Method Room Air 03/20/19 06:00 03/20/19 06:16 03/20/19 06:52 Temperature Temperature Source Sepsis Recent Fever Within 48 Hours Sepsis Action Taken by Nursing Pulse Rate 83 Pulse Rate [Apical] 89 86 Pulse Rate from SpO2 Sensor Pulse Rhythm [Apical] Regular Regular Respiratory Rate 21 16 16 Respiratory Effort / Characteristics Non-Labored Spontaneous Non-Labored Spontaneous Respiratory Depth Normal Normal Respiratory Pattern Regular Regular Blood Pressure Blood Pressure [Right Arm] 142/65 H 149/68 H Blood Pressure Mean Blood Pressure Mean [Right Arm] 90 95 Pulse Oximetry 100 98 Oxygen Delivery Method Room Air Room Air Home Medications Current Medication List: was personally reviewed by me Laboratory Data Attestation: I reviewed the patient's lab results. Result diagrams: 03/20/19 05:28 03/20/19 05:28 Lab Results 03/20/19 03/20/19 Range/Units 05:28 05:28 WBC 12.20 H (4.8-10.8) K/uL RBC 3.48 L (4.2-5.4) M/uL Hgb 11.3 L (12.0-16.0) g/dL Hct 32.6 L (37-47) % MCV 93.7 (80-100) fL MCH 32.5 (25-34) pg MCHC 34.7 (32-36) g/dL RDW Std Deviation 42.1 (36.4-46.3) fL RDW Coeff of Michael 12.5 (11.5-14.5) % Plt Count 234 (130-400) K/uL MPV 9.1 (7.4-10.4) fL Immature Gran % (Auto) 0.2 % Neut % (Auto) 86.9 % Lymph % (Auto) 6.6 % Toole % (Auto) 5.4 % Eos % (Auto) 0.7 % Baso % (Auto) 0.2 % Immature Gran # (Auto) 0.02 (0.00-0.02) K/uL Neut # (Auto) 10.60 H (1.4-6.5) K/uL Lymph # (Auto) 0.81 L (1.2-3.4) K/uL Toole # (Auto) 0.66 H (0.11-0.59) K/uL Eos # (Auto) 0.09 (0-0.5) K/uL Baso # (Auto) 0.02 (0-0.2) K/uL Sodium 136 (136-145) mmol/L Potassium 4.1 (3.5-5.1) mmol/L Chloride 103 (98-107) mmol/L Carbon Dioxide 25 (21-32) mmol/L Anion Gap 8.0 (3-11) BUN 34 H (7-18) mg/dl Creatinine 1.34 H (0.6-1.2) mg/dl Est Cr Clr Drug Dosing 29.5 ml/min Est GFR ( Amer) 43.3 Est GFR (Non-Af Amer) 37.3 BUN/Creatinine Ratio 25.4 H (10-20) Glucose 203 H (70-99) mg/dl Calcium 8.6 (8.5-10.1) mg/dl Total Bilirubin 0.4 (0.2-1) mg/dl Direct Bilirubin 0.1 (0-0.2) mg/dl AST 36 (15-37) U/L ALT 74 (12-78) U/L Alkaline Phosphatase 146 H (45-117) U/L Troponin I < 0.015 (0-0.045) ng/ml Total Protein 7.5 (6.4-8.2) gm/dl Albumin 3.6 (3.4-5.0) gm/dl Lipase 149 (73-393) U/L Administered Medications Discontinued Medications Al Hydrox/Mg Hydrox/Simethicone () 1 dose PO ONE ONE Stop: 03/20/19 05:25 Last Admin: 03/20/19 05:29 Dose: 1 dose Documented by: [id number] Aspirin (Aspirin Chew) 324 mg PO NOW STA Stop: 03/20/19 06:10 Last Admin: 03/20/19 06:15 Dose: 324 mg Documented by: [id number] Fentanyl Citrate (Fentanyl Citrate) 50 mcg IV NOW STA Stop: 03/20/19 06:45 Last Admin: 03/20/19 06:50 Dose: 50 mcg Documented by: [id number] Nitroglycerin (Nitrostat) 0.4 mg SL NOW STA Stop: 03/20/19 06:10 Last Admin: 03/20/19 06:15 Dose: 0.4 mg Documented by: [id number] Blood Pressure Blood Pressure Findings: Elevated blood pressure Blood Pressure Disposition: further management by hospitalist Discharge Plan Visit Data Chief Complaint: Chest Pain Stated Complaint: CHEST PAIN ED Provider: Alex Martel Discharge Problem: Substernal chest pain Patient Disposition: Being Evaluated by Hospitalist Forms Stand Alone Forms: Call Back Authorization, Formerly [facility], [facility] Prescriptions Prescriptions: No Action rabeprazole [Aciphex] 20 mg Tablet,Delayed Release (Dr/Ec) 20 mg PO QAM RF: 0 atorvastatin 20 mg Tablet 20 mg PO QAM RF: 0 atenolol 100 mg Tablet 100 mg PO QAM RF: 0 aspirin [Aspirin Low Dose] 81 mg Tablet,Delayed Release (Dr/Ec) 81 mg PO HS RF: 0 glimepiride 1 mg Tablet 2 mg PO BID RF: 0 amlodipine 10 mg Tablet 10 mg PO QAM RF: 0 multivitamin Capsule 1 cap PO QAM RF: 0 levothyroxine 88 mcg Capsule 88 mcg PO QAM RF: 0 ascorbic acid (vitamin C) [Vitamin C] 500 mg Tablet 500 mg PO QAM RF: 0 cholecalciferol (vitamin D3) [Vitamin D3] 1,000 unit Capsule 1,000 unit PO QAM RF: 0 losartan-hydrochlorothiazide 100-25 mg Tablet 1 tab PO DAILY RF: 0 Referrals Referrals: Jack Holloway MD [Primary Care Provider] - The scribe's documentation has been prepared under my direction and personally reviewed by me in its entirety. I confirm that the note above accurately reflects all work, treatment, procedures, and medical decision making performed by me.
--- NOTE | 2019-03-20 08:58 | History & Physical Report ---
Date of Service March 20, 2019 Assessment & Plan (1) Substernal chest pain: Chest Pain * 1 day history of Sharp central chest pain, not present during my evaluation no current SOB. * Positionally mediated did not respond to nitrates * EKG and troponin x1 negative * Does not appear clinically to be ACS, but multiple risk factors including DMII, history of TIA, history of carotid stenosis s/p endarterectomy, HTN, HLD. * Will admit to tele observation and continue troponin q6h for at least one more reading * No O2 requirement at this time, continuing home beta debra, ARB, statin (20 mg atorvastatin may consider increasing dose during this admission), and ASA * Will evaluate chest pain if it returns after fentanyl wears off. * Will likely need a stress test outpatient vs inpatient. GERD * Likely source of chest pain, patient tells me she has a history of hiatal hernia as well as chronic gerd * Continuing home rabeprazole * Will monitor as fentanyl wears off DMII * Holding home glimepiride during admission, will use sliding scale correction and carb counting with goal of 100-150 F/E/N DMII carb consistent diet Code status: DNR Dispo: Admit to Telemetry for observation History of Present Illness Primary Care Provider: Jack Holloway MD Ms Margaret Breaux is a 79 year old woman with a past medical history significant for TIA, HTN, DMII, HLD, LUZMA, and multiple surgeries of the abdomen including several hernia repairs who presented to [facility] with her early this morning (~5:30) for chest pain that had began yesterday afternoon and persisted until this morning. She reports that initially she noticed that she had a large amount of gas on Thursday, this then gave way to diarrhea more than she remembers having for some time overnight and into Thursday. Mid day Thursday she reports she started to have some chest pain. She describes the chest pain as non radiating central sharp chest pain, positional (worse when lying flat, better when sitting up or standing), She tells me that increased activity seemed to worsen it at times and at other times it did not. She says the pain feels like something digging into her chest. She related it to GERD pain she has had in the past. She endorsed one episode of vomiting and felt somewhat more winded than usual when she would get up to go to the bathroom. She reports that she has had palpitations but also that she always has palpitations and that this is no different. She has had no syncope, presyncope, diaphoresis, abdominal pain, cough. On admission to ED she was given nitrates which did nothing for her chest pain. She was then given fentanyl citrate which relieved her pain completely. EKG was obtained which did not show evidence of ischemia. Chest X ray with no acute thoracic process by my read. Troponin drawn at 530 am negative. Allergies Allergy/AdvReac Type Severity Reaction Status Date / Time adhesive Allergy Mild red/blistered Verified 03/20/19 06:09 skin latex Allergy Mild CONTACT Verified 03/20/19 06:09 DERMATITIS carvedilol Allergy Unknown pt unsure, Unverified 03/20/19 06:09 listed prior omeprazole AdvReac Intermediate HALLUCINATI Verified 03/20/19 06:09 ONS oxycodone AdvReac Intermediate itching Verified 03/20/19 06:09 phenobarbital AdvReac Intermediate HALLUCINATI Verified 03/20/19 06:09 ONS cephalexin AdvReac Mild DIARRHEA Verified 03/20/19 06:09 fentanyl AdvReac Mild DIARRHEA Unverified 03/20/19 06:09 fluoxetine AdvReac Mild DIARRHEA Unverified 03/20/19 06:09 levofloxacin AdvReac Mild DIARRHEA Verified 03/20/19 06:09 meperidine AdvReac Mild HEADACHES Verified 03/20/19 06:09 metformin AdvReac Mild DIARRHEA Unverified 03/20/19 06:09 Sulfa (Sulfonamide AdvReac Mild DIARRHEA Verified 03/20/19 06:09 Antibiotics) Butter Oil AdvReac Mild DIARRHEA Uncoded 03/20/19 06:09 Home Medications Home Medications Medication Instructions Recorded Confirmed Type amlodipine 10 mg PO QAM 07/21/18 03/20/19 History aspirin [Aspirin Low Dose] 81 mg PO HS 07/21/18 03/20/19 History atenolol 100 mg PO QAM 07/21/18 03/20/19 History atorvastatin 20 mg PO QAM 07/21/18 03/20/19 History glimepiride 2 mg PO BID 07/21/18 03/20/19 History levothyroxine 88 mcg PO QAM 07/21/18 03/20/19 History multivitamin 1 cap PO QAM 07/21/18 03/20/19 History rabeprazole [Aciphex] 20 mg PO QAM 07/21/18 03/20/19 History ascorbic acid (vitamin C) [Vitamin 500 mg PO QAM 02/23/19 03/20/19 History C] cholecalciferol (vitamin D3) 1,000 unit PO QAM 02/23/19 03/20/19 History [Vitamin D3] losartan-hydrochlorothiazide 1 tab PO DAILY 03/01/19 03/20/19 History famotidine 20 mg PO BID 14 Days #28 tab 03/20/19 Rx ondansetron 4 mg PO DAILY PRN 10 Days #10 tab 03/20/19 Rx Past Med/Surg History Medical History Anxiety Benign essential tremor Chronic kidney disease, stage III (moderate) Depression Diabetes mellitus, type 2 NIDDM Diverticular disease HX DIVERTICULITIS PER RECORDS GERD (gastroesophageal reflux disease) Hiatal hernia History of blood transfusion POST-OP PER RECORDS History of palpitations Hx of intestinal obstruction 50 YEARS AGO PER RECORDS Hyperlipidemia Hypertension IBS (irritable bowel syndrome) Macular degeneration Obesity Osteoarthritis RLS (restless legs syndrome) Sleep apnea NO DEVICE Transient ischemic attack (TIA) 03/2018 Surgical History Family history of reaction to anesthesia SON-HARD TIME WAKING UP. History of appendectomy History of back surgery History of blepharoplasty History of bowel resection History of cardiac cath X2 TOTAL (10+ YEARS AGO)= NO STENTS History of section X3 History of cholecystectomy History of herniorrhaphy VENTRAL HERNIA History of inguinal hernia repair X3 (CHILD) History of lumpectomy of right breast "BENIGN History of repair of rotator cuff RIGHT X3, LEFT X 1 History of right-sided carotid endarterectomy 3+ YEARS AGO History of thyroidectomy History of total abdominal hysterectomy and bilateral salpingo-oophorectomy History of tubal ligation Family History Son Family history of reaction to anesthesia SLOW TO WAKE Brother Family history of diabetes mellitus Sister Family history of diabetes mellitus Mother Family history of diabetes mellitus Uncle Family hx of colon cancer X 3 Social History Preferred Language: Turkmen Communication Ability: Effective Beliefs That Will Affect Care: None Current Living Situation: Spouse Other Information That Helps Us Care for You: No Feels Safe at Home: Yes Safety Concerns: Feels Safe At This Time Smoking Status: Never smoker Do You Dip or Chew Tobacco: No Second Hand Exposure: No Hx Alcohol Use: No Hx Substance Use: No Review of Systems Constitutional: no fever, no chills, no sweats, no body aches, no fatigue and no weakness Eyes: no problem reported Respiratory: no cough, no dyspnea and no pain with cough Cardiovascular: as per Subjective / HPI Gastrointestinal: + vomiting (Vomited this morning, no nausea now) and + diarrhea/loose stools; no abdominal pain, no bloating, no nausea and no dysphagia Neurologic: no localized weakness, no generalized weakness, no radiating pain, no syncope and no confusion Physical Exam Constitutional: well developed and well nourished; no acute distress and not ill appearing Eyes: PERRL, conjunctivae normal, anicteric sclerae ENMT: external ear and nose normal, oropharynx normal Neck: normal visual inspection Respiratory: normal respiratory effort; no respiratory distress, no labored breathing and does not use accessory muscles Auscultation: lungs clear to auscultation bilaterally; no crackles, no rales, no rhonchi and no wheezes Cardiovascular: Rate/Rhythm: regular rate and regular rhythm Heart Sounds: no click, no gallop, no murmur and no cardiac rub Vessels: dorsalis pedis pulses present Extremities: no calf tenderness and no edema Gastrointestinal (Abdomen): Inspection/Auscultation: abdomen normal to inspection; abdomen not distended Percussion/Palpation: abdomen soft; abdomen nontender, no guarding, abdomen not rigid and no hepatomegaly Musculoskeletal: Unable to reproduce chest pain by thoracic compression Skin: no rashes, warm and dry Neurologic: PERRL, EOMI, accommodation nl, no face palsy, no dysarthria Results & Data Vital Signs (Past 12 Hours) Vital Signs Temp Pulse Pulse Resp BP BP Pulse Ox 03/20/19 06:52 86 16 149/68 H 98 03/20/19 06:16 89 16 142/65 H 100 03/20/19 06:00 83 21 03/20/19 05:40 86 17 03/20/19 05:23 91 H 28 H 03/20/19 05:17 36.7 C 91 H 25 H 161/75 H 98 Supervising Physician Co-Signing Physician Notes I personally examined the patient and verified all lane points of history and exam, discussed case, and agree with decision making with Dr Resendez. Nausea and upper abdominal pain that radiates to chest with some vomiting. Ongoing constantly since yesterday, asked repeatedly about how long it lasted and it has been constant since yesterday, it does wax and wane in intensity but it is absolutely never been a 0. She felt better after a GI cocktail. She is eating and would like to go home. Vitals noted, in general she is awake and alert pleasant no distress. HEENT normocephalic atraumatic mucous membranes moist. Breathing unlabored no accessory muscle use good effort. Skin shows no rashes no pallor or icterus. Neuro shows no focal deficits. EKG without ischemic changes troponins are negative. Nauseathe initial concern coming to the ER was whether or not this was an anginal equivalent. However given the absolute nonstop nature of her symptoms lasting since yesterday with negative cardiac enzymes, clearly this was nausea and not angina. Seems to be improving, stable for home with supportive care. Short course of H2 on top of her PPI, as well as as needed Zofran. She would like to go home and is stable to do so. Otherwise as above. Resident Activity Tracking Resident Involvement: Resident Care Provided Care Provided: Adult Hospital Medicine
[2019-03-20] MEDS ORDERED: GLUCOSE 10 TABS/TUBE PO PRN (11:03)
[2019-03-20] MEDS ORDERED: CARBOHYDRATES FOR HYPOGLYCEMIA PO PRN (11:03)
[2019-03-20] MEDS ORDERED: ONDANSETRON INJ 2 MG/ML 2 ML VIAL IV PRN (11:03)
[2019-03-20] MEDS ORDERED: CHOLECALCIFEROL 1,000 UNITS TAB PO SCH (11:03)
[2019-03-20] MEDS ORDERED: ACETAMINOPHEN 325 MG TAB PO PRN (11:03)
[2019-03-20] MEDS ORDERED: GLUCAGON FOR INJ 1 MG VIAL SQ PRN (11:03)
[2019-03-20] MEDS ORDERED: GLUCOSE 40% GEL 15 GM TUBE PO PRN (11:03)
[2019-03-20] MEDS ORDERED: DEXTROSE 50% 50 ML SYRINGE IV PRN (11:03)
[2019-03-20] MEDS ORDERED: POLYETHYLENE (MIRALAX) 17 GM PACK PO PRN (11:03)
[2019-03-20] MEDS ORDERED: DC ALL PREVIOUSLY ORDERED DIABETES MEDS ONE (11:03)
[2019-03-20] MEDS ORDERED: MODERATE STRESS LEVEL ONE (11:10)
[2019-03-20] MEDS ORDERED: INSULIN PROTOCOL GOAL RANGE ONE (11:10)
[2019-03-20] MEDS ORDERED: PHARMACY GLYCEMIC MGMT CONSULT PRN (11:12)
[2019-03-20] MEDS ORDERED: NovoLIN-R BOLUS FROM BAG IV ONE (11:15)
[2019-03-20] MEDS ORDERED: INSULIN REGULAR 250 UNITS in SODIUM CHLORIDE 0.9% 247.5 ML IV SCH (11:15)
--- NOTE | 2019-03-20 11:17 | Pharmacy Report ---
Pharmacy Glycemic Short Note 2 - Date of Service March 20, 2019 - Glycemic Short BSG Results (Last 24 hours): 03/20/19 03/20/19 05:28 10:56 Glucose 203 H POC Glucose 296 H OUTPATIENT ANTIDIABETIC REGIMEN: * Glimepiride 2mg PO BID * A1c = 7.8% 11/30/18 ASSESSMENT: * Type 2 diabetic admitted to ICU today for chest pain * Initial fingerstick BSG 296 * Per ICU glycemic control protocol and [facility]M guideline, an IV insulin drip will be started to quickly control hyperglycemia with a goal BSG 110-180mg/dL * K 4.1 on PRP, no acidosis noted PLAN FOR INPATIENT GLYCEMIC CONTROL: * Hold outpatient oral diabetes medications (glipizide) * Begin IV insulin infusion per moderate stress protocol, goal range 110- 180mg/dL * Begin SQ Lantus with the insulin drip to enable easier transition to SQ regimen in the future * Check A1c with next lab draw PLAN FOR DISCHARGE: * to be determine
[2019-03-20] MEDS ORDERED: INSULIN GLARGINE SOLOSTAR 100 UNITS/ML 3 ML PEN SC ONE (11:30)
[2019-03-20] MEDS ORDERED: INSULIN ASPART 100 UNITS/ML 3 ML PEN SC SCH ×3 (11:30→16:30)
[2019-03-20 11:43] VITALS: O2SAT 97
[2019-03-20] MEDS ORDERED: ASCORBIC ACID 500 MG TAB PO SCH (12:00)
[2019-03-20] MEDS ORDERED: LOSARTAN/HCTZ 50/12.5MG TAB PO SCH (12:00)
[2019-03-20] MEDS ORDERED: PANTOprazole 40 MG TAB PO SCH (12:00)
[2019-03-20] MEDS ORDERED: LEVOTHYROXINE SODIUM 88 MCG TABLET PO SCH (12:00)
[2019-03-20] MEDS ORDERED: ATORVASTATIN 20 MG TAB PO SCH (12:00)
[2019-03-20] MEDS ORDERED: MULTIVITAMIN TAB PO SCH (12:00)
[2019-03-20] MEDS ORDERED: ATENOLOL 50 MG TABLET PO SCH (12:00)
[2019-03-20] MEDS ORDERED: AMLODIPINE BESYLATE 5 MG TAB PO SCH (12:00)
[2019-03-20] MEDS ORDERED: ONDANSETRON INJ 2 MG/ML 2 ML VIAL IV STA (15:07)
[2019-03-20] MEDS ORDERED: ALUMINUM/MAGNESIUM SUSP 30 ML UDC PO ONE (15:30)
[2019-03-20] MEDS ORDERED: FAMOTIDINE 20 MG TAB PO ONE (15:30)
[2019-03-20] MEDS ORDERED: LIDOCAINE HCL VISCOUS SOLN 2% 15 ML UDC PO ONE (15:30)
[2019-03-20] MEDS ORDERED: [UNRECOGNIZED DRUG - REMARK] ONE (15:30)
[2019-03-20 16:48] VITALS: BP 156/71; PULSE 82
--- NOTE | 2019-03-20 17:32 | Discharge Summary ---
Date of Service March 20, 2019 Admission HPI Per Admitting Provider Ms Margaret Breaux is a 79 year old woman with a past medical history significant for TIA, HTN, DMII, HLD, LUZMA, and multiple surgeries of the abdomen including several hernia repairs who presented to [facility] with her early this morning (~5:30) for chest pain that had began yesterday afternoon and persisted until this morning. She reports that initially she noticed that she had a large amount of gas on Thursday, this then gave way to diarrhea more than she remembers having for some time overnight and into Thursday. Mid day Thursday she reports she started to have some chest pain. She describes the chest pain as non radiating central sharp chest pain, positional (worse when lying flat, better when sitting up or standing), She tells me that increased activity seemed to worsen it at times and at other times it did not. She says the pain feels like something digging into her chest. She related it to GERD pain she has had in the past. She endorsed one episode of vomiting and felt somewhat more winded than usual when she would get up to go to the bathroom. She reports that she has had palpitations but also that she always has palpitations and that this is no different. She has had no syncope, presyncope, diaphoresis, abdominal pain, cough. On admission to ED she was given nitrates which did nothing for her chest pain. She was then given fentanyl citrate which relieved her pain completely. EKG was obtained which did not show evidence of ischemia. Chest X ray with no acute thoracic process by my read. Troponin drawn at 530 am negative. Admission Exam Per Admitting Provider Constitutional: well developed and well nourished; no acute distress and not ill appearing Eyes: PERRL, conjunctivae normal, anicteric sclerae ENMT: external ear and nose normal, oropharynx normal Neck: normal visual inspection Respiratory: normal respiratory effort; no respiratory distress, no labored breathing and does not use accessory muscles Auscultation: lungs clear to auscultation bilaterally; no crackles, no rales, no rhonchi and no wheezes Cardiovascular: Rate/Rhythm: regular rate and regular rhythm Heart Sounds: no click, no gallop, no murmur and no cardiac rub Vessels: dorsalis pedis pulses present Extremities: no calf tenderness and no edema Gastrointestinal (Abdomen): Inspection/Auscultation: abdomen normal to i nspection; abdomen not distended Percussion/Palpation: abdomen soft; abdomen nontender, no guarding, abdomen not rigid and no hepatomegaly Musculoskeletal: Unable to reproduce chest pain by thoracic compression Skin: no rashes, warm and dry Neurologic: PERRL, EOMI, accommodation nl, no face palsy, no dysarthria Principal Diagnosis GERD Discharge Exam Constitutional well developed and well nourished; no acute distress and not ill appearing Eyes PERRL, conjunctivae normal, anicteric sclerae ENMT external ear and nose normal, oropharynx normal Neck normal visual inspection Respiratory normal respiratory effort; no respiratory distress, no labored breathing and does not use accessory muscles Auscultation: lungs clear to auscultation bilaterally; no crackles, no rales, no rhonchi and no wheezes Cardiovascular Rate/Rhythm: regular rate and regular rhythm Heart Sounds: no click, no gallop, no murmur and no cardiac rub Vessels: dorsalis pedis pulses present Extremities: no calf tenderness and no edema Gastrointestinal (Abdomen) Inspection/Auscultation: abdomen normal to inspection; abdomen not distended Percussion/Palpation: + abdomen tender (Mild epigastric tenderness) and abdomen soft; no guarding, abdomen not rigid and no hepatomegaly Skin no rashes, warm and dry Neurologic PERRL, EOMI, accommodation nl, no face palsy, no dysarthria Discharge Data Allergies Allergy/AdvReac Type Severity Reaction Status Date / Time adhesive Allergy Mild red/blistered Verified 03/20/19 06:09 skin latex Allergy Mild CONTACT Verified 03/20/19 06:09 DERMATITIS carvedilol Allergy Unknown pt unsure, Unverified 03/20/19 06:09 listed prior omeprazole AdvReac Intermediate HALLUCINATI Verified 03/20/19 06:09 ONS oxycodone AdvReac Intermediate itching Verified 03/20/19 06:09 phenobarbital AdvReac Intermediate HALLUCINATI Verified 03/20/19 06:09 ONS cephalexin AdvReac Mild DIARRHEA Verified 03/20/19 06:09 fentanyl AdvReac Mild DIARRHEA Unverified 03/20/19 06:09 fluoxetine AdvReac Mild DIARRHEA Unverified 03/20/19 06:09 levofloxacin AdvReac Mild DIARRHEA Verified 03/20/19 06:09 meperidine AdvReac Mild HEADACHES Verified 03/20/19 06:09 metformin AdvReac Mild DIARRHEA Unverified 03/20/19 06:09 Sulfa (Sulfonamide AdvReac Mild DIARRHEA Verified 03/20/19 06:09 Antibiotics) Butter Oil AdvReac Mild DIARRHEA Uncoded 03/20/19 06:09 Consultations 03/20/19 07:24 ED Decision to Admit Stat 03/20/19 16:25 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 * Positionally mediated did not respond to nitrates * EKG and troponin x1 negative * Chest X ray unremarkable * Does not appear clinically to be ACS, but due to multiple risk factors including DMII, history of TIA, history of carotid stenosis s/p endarterectomy, HTN, HLD we made decision to admit her to obs * Patient continued to have chest pain once fentanyl wore off, especially while lying flat or while straining on toilet. * Unremitting chest pain with the character described above seemed very unlikely to be cardiac in nature, so did not get stress test here. If patients symptoms evolve or there is suspicion outpatient stress test is reasonable. GERD * Likely source of chest pain, patient tells me she has a history of hiatal hernia as well as chronic gerd * Continuing home rabeprazole * Will monitor as fentanyl wears off * Patient discharged home with medication for GERD, likely viral gastritis vs worsening reflux. * Pepcid 20 mg BID, Zofran PRN for nausea Total Time Total Time Spent Total Time Spent (In Minutes): <30 Total Time Includes: Examination of the Patient and Discharge Planning Discharge Plan Discharge Items Patient Disposition: Home - Self-Care Reason For Visit: CHEST PAIN Discharge Diagnosis: GERD Condition: Good Discharge Goals: Decrease discomfort Activity: Resume your previous activity Non-emergency contact: Primary Care Provider Call non-emergency contact if: you have any medication questions, your symptoms worsen and your pain is not controlled Follow-up/Referrals: Jack Holloway MD [Primary Care Provider] - Diet: Carb Consistent or DM2 Addtl Provider Instructions: Ms. Breaux, It was our pleasure to evaluate and treat you for your chest pain. Based on the character (Central chest pain that moved up into your neck associated with vomiting and strongly positional discomfort) we believe this is likely not related to your heart. We assessed you by checking your cardiac enzymes, an ECG and a chest X ray which all appeared normal. The most likely cause of your chest discomfort is worsening gastric reflux. We are going to send you home with the following medications and have you follow up with your primary care doctor in the next few days. Pepcid (famotidine) 20 mg BID for GERD symptoms Zofran (Ondansetron) dissolving tablet to be taken orally as needed for nausea It will be important to follow up with your primary care doctor within the next few days for follow up of your chest pain/GERD. Prescriptions: New famotidine 20 mg tablet 20 mg PO BID 14 Days Qty: 28 RF: 0 ondansetron 4 mg tablet,disintegrating 4 mg PO DAILY PRN (Reason: nausea and vomiting) 10 Days Qty: 10 RF: 0 Continued rabeprazole [Aciphex] 20 mg Tablet,Delayed Release (Dr/Ec) 20 mg PO QAM RF: 0 atorvastatin 20 mg Tablet 20 mg PO QAM RF: 0 atenolol 100 mg Tablet 100 mg PO QAM RF: 0 aspirin [Aspirin Low Dose] 81 mg Tablet,Delayed Release (Dr/Ec) 81 mg PO HS RF: 0 glimepiride 1 mg Tablet 2 mg PO BID RF: 0 amlodipine 10 mg Tablet 10 mg PO QAM RF: 0 multivitamin Capsule 1 cap PO QAM RF: 0 levothyroxine 88 mcg Capsule 88 mcg PO QAM RF: 0 ascorbic acid (vitamin C) [Vitamin C] 500 mg Tablet 500 mg PO QAM RF: 0 cholecalciferol (vitamin D3) [Vitamin D3] 1,000 unit Capsule 1,000 unit PO QAM RF: 0 losartan-hydrochlorothiazide 100-25 mg Tablet 1 tab PO DAILY RF: 0 Stand-Alone Forms: Call Back Authorization, [facility] Discharge Orders: Discharge Order (Routine); Ordered 03/20/19 Ordered By: Rolo Resendez Admission Data Admit Date/Time: 03/20/19 08:48 Attending Provider: Toan Wu Admit Provider: Rolo Resendez Primary Care Provider: Jack Holloway Other Providers: Cary Mclean Service: Telemetry Other Interventions: Discharge Summary Assessment (RN) Last Done: 03/20/19 16:46 DC Date/Time DO NOT enter until pt leaves facility: 03/20/19 17:45 Supervising Physician Co-Signing Physician Notes I personally examined the patient and verified all lane points of history and exam, discussed case, and agree with decision making with Dr Resendez. See attestation on H&P. Stable for home. Otherwise as above. Resident Activity Tracking Resident Involvement: Resident Care Provided Care Provided: Adult Hospital Medicine
[2019-03-20] MEDS ORDERED: INSULIN GLARGINE SOLOSTAR 100 UNITS/ML 3 ML PEN SC SCH (21:00)
[2019-03-20] MEDS ORDERED: ASPIRIN 81 MG ECTAB PO SCH (21:00)
== END 2019-03-20 17:45 | disposition home or self-care (01) ==
LOC: 1E 05:11 → ED 05:11 → 1E 10:31
DX: R25.1 Tremor, unspecified; K58.9 Irritable bowel syndrome, unspecified; K21.9 Gastro-esophageal reflux disease without esophagitis; Z86.73 Personal history of transient ischemic attack (TIA), and cerebral infarction without residual deficits; Z91.040 Latex allergy status; M19.90 Unspecified osteoarthritis, unspecified site; Z79.82 Long term (current) use of aspirin; I12.9 Hypertensive chronic kidney disease with stage 1 through stage 4 chronic kidney disease, or unspecified chronic kidney disease; Z88.8 Allergy status to other drugs, medicaments and biological substances; E11.22 Type 2 diabetes mellitus with diabetic chronic kidney disease; R07.2 Precordial pain; F41.8 Other specified anxiety disorders; E78.5 Hyperlipidemia, unspecified; G25.81 Restless legs syndrome; N18.3 Chronic kidney disease, stage 3 (moderate); G47.30 Sleep apnea, unspecified; Z80.0 Family history of malignant neoplasm of digestive organs

== ENCOUNTER 2019-03-22 08:38 | Observation (INO) ==
[2019-03-22 09:24] LABS: Basophils # (auto) 0.01 K/uL (0-0.2); Basophils % (auto) 0.1 %; Eosinophils # (auto) 0.25 K/uL (0-0.5); Eosinophils % (auto) 2.3 %; Hematocrit (blood only) 31.1 % (37-47); Hemoglobin 10.5 g/dL (12.0-16.0); Immature Granulocytes # (auto) 0.03 K/uL (0.00-0.02); Immature Granulocytes % (auto) 0.3 %; Lymphocytes # (auto) 0.82 K/uL (1.2-3.4); Lymphocytes % (auto) 7.4 %; Mean Corpuscular Hgb Conc 33.8 g/dL (32-36); Mean Platelet Volume 9.9 fL (7.4-10.4); Monocytes # (auto) 1.09 K/uL (0.11-0.59); Monocytes % (auto) 9.9 %; Neutrophils # (auto) 8.86 K/uL (1.4-6.5); Platelet Count 245 K/uL (130-400); RDW Coefficient of Variation 12.3 % (11.5-14.5); RDW Standard Deviation 41.8 fL (36.4-46.3); Red Blood Count 3.31 M/uL (4.2-5.4); White Blood Count 11.06 K/uL (4.8-10.8)
[2019-03-22 09:32] LABS: Alanine Aminotransferase 34 U/L (12-78); Albumin Level 3.1 gm/dl (3.4-5.0); Aspartate Aminotransferase 12 U/L (15-37); BUN Creatinine Ratio 26.7 (10-20); Blood Urea Nitrogen 44 mg/dl (7-18); Calcium 8.3 mg/dl (8.5-10.1); Carbon Dioxide 27 mmol/L (21-32); Chloride 100 mmol/L (98-107); Est GFR (African American) 33.4; Est GFR (Non-African American) 28.8; Glucose 193 mg/dl (70-99); Magnesium 2.3 mg/dl (1.8-2.4); Potassium 4.5 mmol/L (3.5-5.1); Sodium 133 mmol/L (136-145)
[2019-03-22 09:43] LABS: Albumin Globulin Ratio 0.8 (0.9-2); Alkaline Phosphatase 112 U/L (45-117); Bilirubin,Total 0.4 mg/dl (0.2-1); Globulin 3.9 gm/dl (2.5-4.0); Troponin I < 0.015 ng/ml (0-0.045)
--- NOTE | 2019-03-22 11:08 | XRay Report ---
SINGLE VIEW CHEST CLINICAL HISTORY: Atrial fibrillation. FINDINGS: An AP, portable, upright chest radiograph is compared to study dated 03/20/2019 and correlate d with chest CT dated 07/21/2018. The examination is degraded by portable technique and patient rotatio n. The heart is enlarged and there is atherosclerotic calcification of the thoracic aorta. The pulmo nary vasculature is noncongested. Chronic interstitial thickening is similar previous. Atelectasis is noted at the left lung base. No airspace consolidation or large pleural effusion is identified. No p neumothorax is seen. The skeletal structures are osteopenic. The bony thorax is grossly intact. Posto perative change is noted in the left humeral head. Cholecystectomy clips are seen in the right upper quadrant. IMPRESSION: Cardiomegaly with no acute cardiopulmonary abnormality. Electronically signed by: Ridge Valerio M.D. 03/22/2019 11:07 AM
[2019-03-22] MEDS ORDERED: NITROGLYCERIN SL 0.4 MG/TAB TAB SL PRN ×2 (11:32→16:05)
--- NOTE | 2019-03-22 14:01 | Emergency Department Note ---
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 The patient reports that she was evaluated and admitted at this hospital 2 days ago for chest pain and shortness of breath. She states that during a follow-up appointment today she had an EKG performed which showed new onset a-fib so she was referred to the ER. She notes that her chest pain and shortness of breath have persisted. She denies being on any blood thinners but reports that she does take a low-dose daily aspirin. She denies a history of an AR. She states that she had a thyroidectomy performed years ago and was last checked 3 months ago. She notes that at night she feels her heart skipping and racing. She reports she feels the same when waking up every morning. Home Medications Home Medications Medication Instructions Recorded Confirmed Type amlodipine 10 mg PO QAM 07/21/18 03/22/19 History aspirin [Aspirin Low Dose] 81 mg PO HS 07/21/18 03/22/19 History atenolol 100 mg PO QAM 07/21/18 03/22/19 History atorvastatin 20 mg PO QAM 07/21/18 03/22/19 History glimepiride 2 mg PO BID 07/21/18 03/22/19 History levothyroxine 88 mcg PO QAM 07/21/18 03/22/19 History multivitamin 1 cap PO QAM 07/21/18 03/22/19 History rabeprazole [Aciphex] 20 mg PO QAM 07/21/18 03/22/19 History ascorbic acid (vitamin C) [Vitamin 500 mg PO QAM 02/23/19 03/22/19 History C] cholecalciferol (vitamin D3) 1,000 unit PO QAM 02/23/19 03/22/19 History [Vitamin D3] losartan-hydrochlorothiazide 1 tab PO DAILY 03/01/19 03/22/19 History famotidine 20 mg PO BID 14 Days #28 tab 03/20/19 03/22/19 Rx ondansetron 4 mg PO DAILY PRN 10 Days #10 tab 03/20/19 03/22/19 Rx Allergies Allergy/AdvReac Type Severity Reaction Status Date / Time adhesive Allergy Mild red/blistered Verified 03/22/19 09:22 skin latex Allergy Mild CONTACT Verified 03/22/19 09:22 DERMATITIS carvedilol Allergy Unknown pt unsure, Verified 03/25/19 12:15 listed prior omeprazole AdvReac Intermediate HALLUCINATI Verified 03/22/19 09:22 ONS oxycodone AdvReac Intermediate itching Verified 03/22/19 09:22 phenobarbital AdvReac Intermediate HALLUCINATI Verified 03/22/19 09:22 ONS cephalexin AdvReac Mild DIARRHEA Verified 03/22/19 09:22 fentanyl AdvReac Mild altered Verified 03/25/19 12:15 mental status levofloxacin AdvReac Mild DIARRHEA Verified 03/22/19 09:22 meperidine AdvReac Mild HEADACHES Verified 03/22/19 09:22 metformin AdvReac Mild DIARRHEA Verified 03/25/19 12:15 Sulfa (Sulfonamide AdvReac Mild DIARRHEA Verified 03/22/19 09:22 Antibiotics) fluoxetine AdvReac Unknown Unknown Verified 03/25/19 12:16 Butter Oil AdvReac Mild DIARRHEA Uncoded 03/22/19 09:22 Past Med/Surg History Medical History Chronic gastritis HLD (hyperlipidemia) LUZMA (obstructive sleep apnea) HTN (hypertension) CKD (chronic kidney disease) stage 3, GFR 30-59 ml/min Diabetes mellitus H/O: hysterectomy Hypothyroid 2/2 thyroidectomy H/O total thyroidectomy Bowel perforation (Resolved) Paroxysmal atrial fibrillation New onset atrial fibrillation (Inactive) Anxiety Benign essential tremor Chronic kidney disease, stage III (moderate) Depression Diabetes mellitus, type 2 NIDDM Diverticular disease HX DIVERTICULITIS PER RECORDS GERD (gastroesophageal reflux disease) Hiatal hernia History of blood transfusion POST-OP PER RECORDS History of palpitations Hx of intestinal obstruction 50 YEARS AGO PER RECORDS Hyperlipidemia Hypertension IBS (irritable bowel syndrome) Macular degeneration Obesity Osteoarthritis RLS (restless legs syndrome) Sleep apnea NO DEVICE Transient ischemic attack (TIA) 03/2018 Surgical History History of repair of hiatal hernia 02/2019 Previous section S/P carotid endarterectomy S/P lumpectomy of breast S/P cholecystectomy S/P appendectomy Family history of reaction to anesthesia SON-HARD TIME WAKING UP. History of appendectomy History of back surgery History of blepharoplasty History of bowel resection History of cardiac cath X2 TOTAL (10+ YEARS AGO)= NO STENTS History of section X3 History of cholecystectomy History of herniorrhaphy VENTRAL HERNIA History of inguinal hernia repair X3 (CHILD) History of lumpectomy of right breast "BENIGN History of repair of rotator cuff RIGHT X3, LEFT X 1 History of right-sided carotid endarterectomy 3+ YEARS AGO History of thyroidectomy History of total abdominal hysterectomy and bilateral salpingo-oophorectomy History of tubal ligation Family History Son Family history of reaction to anesthesia SLOW TO WAKE Brother Family history of diabetes mellitus Sister Family history of diabetes mellitus Mother Family history of diabetes mellitus Uncle Family hx of colon cancer X 3 Social History Preferred Language: Icelandic Communication Ability: Effective Beliefs That Will Affect Care: None marital status: Current Living Situation: Spouse Other Information That Helps Us Care for You: No Feels Safe at Home: Yes Safety Concerns: Feels Safe At This Time Smoking Status: Never smoker Second Hand Exposure: No Hx Alcohol Use: No Hx Substance Use: No Review of Systems See HPI for pertinent positives & negatives. and A total of 10 systems reviewed and were otherwise negative Physical Exam Vital Signs Vital Signs - 24 hr 03/24/19 19:10 03/24/19 23:09 03/25/19 03:15 Temperature 37.2 C 36.9 C 36.5 C Temperature Source Oral Oral Oral Pulse Rate [Right Finger] 93 H 106 H 115 H Respiratory Rate 18 16 18 Respiratory Depth Blood Pressure [Left Arm] 120/67 Blood Pressure [Right Arm] 105/66 122/65 Blood Pressure Mean [Left Arm] 84 Blood Pressure Mean [Right Arm] 79 84 Blood Pressure Position [Left Arm] Lying Blood Pressure Position [Right Arm] Lying Lying Pulse Oximetry 93 92 95 Oxygen Delivery Method Room Air Room Air Room Air 03/25/19 07:05 03/25/19 11:30 03/25/19 15:43 Temperature 36.2 C L 36.7 C 36.7 C Temperature Source Oral Oral Oral Pulse Rate [Right Finger] 125 H 110 H 122 H Respiratory Rate 16 18 16 Respiratory Depth Normal Normal Blood Pressure [Left Arm] 129/78 110/74 Blood Pressure [Right Arm] 100/62 Blood Pressure Mean [Left Arm] 95 86 Blood Pressure Mean [Right Arm] 74 Blood Pressure Position [Left Arm] Sitting Sitting Blood Pressure Position [Right Arm] Sitting Pulse Oximetry 97 95 94 Oxygen Delivery Method Room Air Room Air Vital signs reviewed. General: Well-appearing, in no significant distress. HEENT: No scleral icterus, PERRLA, neck supple. Atraumatic. Cardiovascular: Irregular and rate controlled, systolic ejection murmur. Pulmonary: Clear to auscultation bilaterally, normal work of breathing. Abdomen: Soft, nontender, nondistended, positive bowel sounds. Musculoskeletal: Atraumatic, no peripheral edema. Neurologic: Patient awake alert and oriented x 3, full strength in all 4 extremities. Cranial nerves 2 through 12 grossly intact. Skin: Warm, dry, no rash Course 0917: Past medical records reviewed. The patient was evaluated in room B9. A complete history and physical examination was performed. 1306: I discussed the patients case with Dr. Rodrigues [facility]. She will evaluate the patient for further management. Administered Medications Acetaminophen (Tylenol) 650 mg PO Q4H PRN PRN Reason: Pain or Fever Stop: 04/21/19 15:15 Last Admin: 03/23/19 18:54 Dose: 650 mg Documented by: [id number] Admin: 03/23/19 05:57 Dose: 650 mg Documented by: [id number] Admin: 03/22/19 21:55 Dose: 650 mg Documented by: [id number] Admin: 03/22/19 18:09 Dose: 650 mg Documented by: [id number] Apixaban (Eliquis) 2.5 mg PO BID [facility] Stop: 04/23/19 11:59 Last Admin: 03/25/19 08:17 Dose: 2.5 mg Documented by: [id number] Admin: 03/24/19 20:57 Dose: 2.5 mg Documented by: [id number] Admin: 03/24/19 12:18 Dose: 2.5 mg Documented by: [id number] Ascorbic Acid (Vitamin C) 500 mg PO QAM [facility] Stop: 04/21/19 15:15 Last Admin: 03/25/19 08:21 Dose: 500 mg Documented by: [id number] Admin: 03/24/19 08:03 Dose: 500 mg Documented by: [id number] Admin: 03/23/19 08:17 Dose: 500 mg Documented by: [id number] Admin: 03/22/19 16:57 Dose: Not Given Documented by: [id number] Aspirin (Ecotrin Ectab) 81 mg PO HS [facility] Stop: 04/21/19 20:59 Last Admin: 03/24/19 20:59 Dose: 81 mg Documented by: [id number] Admin: 03/23/19 20:11 Dose: 81 mg Documented by: [id number] Admin: 03/22/19 21:18 Dose: 81 mg Documented by: [id number] Atorvastatin Calcium (Lipitor) [address] [facility] Stop: 04/21/19 15:15 Last Admin: 03/25/19 08:19 Dose: 20 mg Documented by: [id number] Admin: 03/24/19 08:02 Dose: 20 mg Documented by: [id number] Admin: 03/23/19 08:17 Dose: 20 mg Documented by: [id number] Admin: 03/22/19 16:54 Dose: Not Given Documented by: [id number] Diltiazem HCl (Tiazac) [address] [facility] Stop: 04/24/19 15:14 Last Admin: 03/25/19 15:50 Dose: 120 mg Documented by: [id number] Duloxetine HCl (Cymbalta) [address] [facility] Stop: 04/22/19 08:59 Last Admin: 03/25/19 08:18 Dose: 60 mg Documented by: [id number] Admin: 03/24/19 08:03 Dose: 60 mg Documented by: [id number] Admin: 03/23/19 08:15 Dose: 60 mg Documented by: [id number] Famotidine (Pepcid) 20 mg PO BID [facility] Stop: 04/21/19 20:59 Last Admin: 03/25/19 08:18 Dose: 20 mg Documented by: [id number] Admin: 03/24/19 20:58 Dose: 20 mg Documented by: [id number] Admin: 03/24/19 08:03 Dose: 20 mg Documented by: [id number] Admin: 03/23/19 20:11 Dose: 20 mg Documented by: [id number] Admin: 03/23/19 08:16 Dose: 20 mg Documented by: [id number] Admin: 03/22/19 21:19 Dose: Not Given Documented by: [id number] Glimepiride (Amaryl) 2 mg PO BID [facility] Stop: 04/21/19 20:59 Last Admin: 03/22/19 20:54 Dose: Not Given Documented by: [id number] HCTZ/Losartan Potassium (Hyzaar 50/12.5mg) 1 tab PO DAILY [facility] Stop: 04/21/19 15:15 Last Admin: 03/25/19 08:17 Dose: 1 tab Documented by: [id number] Admin: 03/24/19 08:02 Dose: 1 tab Documented by: [id number] Admin: 03/23/19 08:17 Dose: 1 tab Documented by: [id number] Admin: 03/22/19 16:56 Dose: Not Given Documented by: [id number] Insulin Aspart (Novolog Flexpen) 0 units SC ACHS [facility] Stop: 04/21/19 20:59 Last Admin: 03/25/19 12:12 Dose: 2 units Documented by: [id number] Cosigned by: [id number] Admin: 03/25/19 08:20 Dose: 4 units Documented by: [id number] Cosigned by: [id number] Admin: 03/24/19 21:01 Dose: Not Given Documented by: [id number] Cosigned by: [id number] Admin: 03/24/19 17:20 Dose: 2 units Documented by: [id number] Cosigned by: [id number] Admin: 03/24/19 12:19 Dose: 3 units Documented by: [id number] Cosigned by: [id number] Admin: 03/24/19 08:04 Dose: 47 units Documented by: [id number] Cosigned by: [id number] Admin: 03/23/19 20:13 Dose: 2 units Documented by: [id number] Cosigned by: [id number] Admin: 03/23/19 17:33 Dose: 4 units Documented by: [id number] Cosigned by: [id number] Admin: 03/23/19 12:22 Dose: 5 units Documented by: [id number] Cosigned by: [id number] Admin: 03/23/19 08:18 Dose: 4 units Documented by: [id number] Cosigned by: [id number] Admin: 03/22/19 21:18 Dose: 2 units Documented by: [id number] Cosigned by: [id number] Levothyroxine Sodium (Synthroid) 88 mcg PO DAILYBB [facility] Stop: 04/22/19 06:29 Last Admin: 03/25/19 06:13 Dose: 88 mcg Documented by: [id number] Admin: 03/24/19 05:58 Dose: 88 mcg Documented by: [id number] Admin: 03/23/19 05:57 Dose: 88 mcg Documented by: [id number] Metoprolol Tartrate (Lopressor) 5 mg IV Q4 PRN PRN Reason: Tachycardia greater than 110 Stop: 04/21/19 16:11 Last Admin: 03/22/19 18:10 Dose: 5 mg Documented by: [id number] Metoprolol Tartrate (Lopressor) 125 mg PO BID [facility] Stop: 04/23/19 08:59 Last Admin: 03/25/19 08:18 Dose: 125 mg Documented by: [id number] Admin: 03/24/19 20:58 Dose: 125 mg Documented by: [id number] Admin: 03/24/19 09:55 Dose: 50 mg Documented by: [id number] Multivitamins (Multivitamin Tab) [address] [facility] Stop: 04/21/19 15:15 Last Admin: 03/25/19 08:19 Dose: 1 tab Documented by: [id number] Admin: 03/24/19 08:02 Dose: 1 tab Documented by: [id number] Admin: 03/23/19 08:17 Dose: 1 tab Documented by: [id number] Admin: 03/22/19 16:56 Dose: Not Given Documented by: [id number] Nitroglycerin (Nitrostat) 0.4 mg SL UD PRN PRN Reason: Chest Pain Stop: 04/21/19 16:04 Last Admin: 03/22/19 18:35 Dose: 0.4 mg Documented by: [id number] Pantoprazole Sodium (Protonix) [facility] [place] Stop: 04/21/19 15:15 Last Admin: 03/25/19 08:19 Dose: 40 mg Documented by: [id number] Admin: 03/24/19 08:02 Dose: 40 mg Documented by: [id number] Admin: 03/23/19 08:16 Dose: 40 mg Documented by: [id number] Admin: 03/22/19 16:56 Dose: 40 mg Documented by: [id number] Vitamin D (Vitamin D3) 1,[address] [facility] Stop: 04/21/19 15:15 Last Admin: 03/25/19 08:19 Dose: 1,000 units Documented by: [id number] Admin: 03/24/19 08:02 Dose: 1,000 units Documented by: [id number] Admin: 03/23/19 08:17 Dose: 1,000 units Documented by: [id number] Admin: 03/22/19 16:57 Dose: Not Given Documented by: [id number] Discontinued Medications Amlodipine Besylate (Norvasc) [address] [facility] Stop: 04/21/19 15:15 Last Admin: 03/25/19 08:18 Dose: 10 mg Documented by: [id number] Admin: 03/24/19 08:02 Dose: 10 mg Documented by: [id number] Admin: 03/23/19 08:16 Dose: 10 mg Documented by: [id number] Admin: 03/22/19 16:54 Dose: Not Given Documented by: [id number] Atenolol (Tenormin) [address] [facility] Stop: 04/21/19 15:15 Last Admin: 03/23/19 08:16 Dose: 100 mg Documented by: [id number] Admin: 03/22/19 16:55 Dose: Not Given Documented by: [id number] Heparin Sodium/Dextrose (Heparin Sodium/Dextrose) 25,000 units in 500 mls @ 20 mls/hr IV .Q24H [facility]; Protocol Stop: 04/21/19 17:44 Last Titration: 03/25/19 08:55 Dose: 0 units/hr, 0 mls/hr Documented by: [id number] Cosigned by: [id number] Titration: 03/24/19 14:22 Dose: 0 units/hr, 0 mls/hr Documented by: [id number] Cosigned by: [id number] Titration: 03/24/19 06:56 Dose: 1,000 units/hr, 20 mls/hr Documented by: [id number] Cosigned by: [id number] Titration: 03/23/19 22:55 Dose: 1,000 units/hr, 20 mls/hr Documented by: [id number] Cosigned by: [id number] Admin: 03/23/19 17:35 Dose: 1,000 units/hr, 20 mls/hr Documented by: [id number] Cosigned by: [id number] Titration: 03/23/19 17:35 Dose: 1,000 units/hr, 20 mls/hr Documented by: [id number] Cosigned by: [id number] Titration: 03/23/19 07:30 Dose: 1,000 units/hr, 20 mls/hr Documented by: [id number] Cosigned by: [id number] Titration: 03/23/19 00:54 Dose: 1,050 units/hr, 21 mls/hr Documented by: [id number] Cosigned by: [id number] Admin: 03/22/19 18:20 Dose: 1,050 units/hr, 21 mls/hr Documented by: [id number] Cosigned by: [id number] Sodium Chloride (Nss 1000ml) 500 mls @ 999 mls/hr IV .Q31M [facility] Stop: 03/25/19 11:46 Last Infusion: 03/25/19 14:57 Dose: 0 mls/hr Documented by: [id number] Admin: 03/25/19 11:28 Dose: 150 mls/hr Documented by: [id number] Metoprolol Tartrate (Lopressor) 75 mg PO BID [facility] Stop: 04/22/19 20:59 Last Admin: 03/24/19 08:03 Dose: 75 mg Documented by: [id number] Admin: 03/23/19 20:11 Dose: 75 mg Documented by: [id number] Metoprolol Tartrate (Lopressor) 25 mg PO NOW [facility] Stop: 03/23/19 11:18 Last Admin: 03/23/19 11:51 Dose: 25 mg Documented by: [id number] Nitroglycerin (Nitrostat) 0.4 mg SL PRN PRN PRN Reason: Chest Pain Stop: 04/21/19 11:31 Last Admin: 03/22/19 11:37 Dose: 0.4 mg Documented by: [id number] Medical Decision Making Differential Diagnosis Differential diagnosis includes: premature contractions, a-fib, electrolyte abnormality, cardiac dysrhythmia, thyroid dysfunction, pulmonary embolism, infection, gastrointestinal, as well as others were entertained. Medical Records Attestation: I reviewed the patient's medical records. Home Medications Current Medication List: was personally reviewed by me Laboratory Data Attestation: I reviewed the patient's lab results. Result diagrams: 03/25/19 07:28 03/25/19 07:28 Lab Results 03/22/19 03/22/19 03/22/19 Range/Units 09:04 09:04 17:26 WBC 11.06 H (4.8-10.8) K/uL RBC 3.31 L (4.2-5.4) M/uL Hgb 10.5 L (12.0-16.0) g/dL Hct 31.1 L (37-47) % MCV 94.0 (80-100) fL MCH 31.7 (25-34) pg MCHC 33.8 (32-36) g/dL RDW Std Deviation 41.8 (36.4-46.3) fL RDW Coeff of Michael 12.3 (11.5-14.5) % Plt Count 245 (130-400) K/uL MPV 9.9 (7.4-10.4) fL Immature Gran % (Auto) 0.3 % Neut % (Auto) 80.0 % Lymph % (Auto) 7.4 % [place] % (Auto) 9.9 % Eos % (Auto) 2.3 % Baso % (Auto) 0.1 % Reticulocyte % (Auto) (0.5-2.0) % Immature Gran # (Auto) 0.03 H (0.00-0.02) K/uL Neut # (Auto) 8.86 H (1.4-6.5) K/uL Lymph # (Auto) 0.82 L (1.2-3.4) K/uL [place] # (Auto) 1.09 H (0.11-0.59) K/uL Eos # (Auto) 0.25 (0-0.5) K/uL Baso # (Auto) 0.01 (0-0.2) K/uL Reticulocyte # (0.02-0.10) 10^6/uL Absolute Nucleated RBC 0.00 (0-0) K/uL Nucleated RBC % (auto) 0.0 % Peripher Smr Path Cons APTT (21.0-31.0) Seconds PTT Ratio Sodium 133 L (136-145) mmol/L Potassium 4.5 (3.5-5.1) mmol/L Chloride 100 (98-107) mmol/L Carbon Dioxide 27 (21-32) mmol/L Anion Gap 6.0 (3-11) BUN 44 H (7-18) mg/dl Creatinine 1.66 H (0.6-1.2) mg/dl Est Cr Clr Drug Dosing 24.0 ml/min Est GFR ( Amer) 33.4 Est GFR (Non-Af Amer) 28.8 BUN/Creatinine Ratio 26.7 H (10-20) Glucose 193 H (70-99) mg/dl POC Glucose (70-99) Calcium 8.3 L (8.5-10.1) mg/dl Magnesium 2.3 (1.8-2.4) mg/dl Iron 17 L (35-150) mcg/dl TIBC 215 L (250-450) mcg/dl Transferrin 165 L (200-360) mg/dl Ferritin 292.8 (8-388) ng/ml Total Bilirubin 0.4 (0.2-1) mg/dl AST 12 L (15-37) U/L ALT 34 (12-78) U/L Alkaline Phosphatase 112 (45-117) U/L Troponin I < 0.015 < 0.015 (0-0.045) ng/ml Total Protein 7.0 (6.4-8.2) gm/dl Albumin 3.1 L (3.4-5.0) gm/dl Globulin 3.9 (2.5-4.0) gm/dl Albumin/Globulin Ratio 0.8 L (0.9-2) Vitamin B12 (211-911) pg/ml Folate (>5.38) ng/ml TSH 0.012 L (0.300-4.500) uIu/ml Free T4 2.10 H (0.8-1.6) ng/dl Stool Occult Bld Scrn (Negative) 03/22/19 03/22/19 03/22/19 Range/Units 17:26 17:26 20:07 WBC (4.8-10.8) K/uL RBC (4.2-5.4) M/uL Hgb (12.0-16.0) g/dL Hct (37-47) % MCV (80-100) fL MCH (25-34) pg MCHC (32-36) g/dL RDW Std Deviation (36.4-46.3) fL RDW Coeff of Michael (11.5-14.5) % Plt Count (130-400) K/uL MPV (7.4-10.4) fL Immature Gran % (Auto) % Neut % (Auto) % Lymph % (Auto) % [place] % (Auto) % Eos % (Auto) % Baso % (Auto) % Reticulocyte % (Auto) 1.0 (0.5-2.0) % Immature Gran # (Auto) (0.00-0.02) K/uL Neut # (Auto) (1.4-6.5) K/uL Lymph # (Auto) (1.2-3.4) K/uL [place] # (Auto) (0.11-0.59) K/uL Eos # (Auto) (0-0.5) K/uL Baso # (Auto) (0-0.2) K/uL Reticulocyte # 0.03 (0.02-0.10) 10^6/uL Absolute Nucleated RBC (0-0) K/uL Nucleated RBC % (auto) % Peripher Smr Path Cons Cancelled APTT (21.0-31.0) Seconds PTT Ratio Sodium (136-145) mmol/L Potassium (3.5-5.1) mmol/L Chloride (98-107) mmol/L Carbon Dioxide (21-32) mmol/L Anion Gap (3-11) BUN (7-18) mg/dl Creatinine (0.6-1.2) mg/dl Est Cr Clr Drug Dosing ml/min Est GFR ( Amer) Est GFR (Non-Af Amer) BUN/Creatinine Ratio (10-20) Glucose (70-99) mg/dl POC Glucose 235 H (70-99) Calcium (8.5-10.1) mg/dl Magnesium (1.8-2.4) mg/dl Iron (35-150) mcg/dl TIBC (250-450) mcg/dl Transferrin (200-360) mg/dl Ferritin (8-388) ng/ml Total Bilirubin (0.2-1) mg/dl AST (15-37) U/L ALT (12-78) U/L Alkaline Phosphatase (45-117) U/L Troponin I (0-0.045) ng/ml Total Protein (6.4-8.2) gm/dl Albumin (3.4-5.0) gm/dl Globulin (2.5-4.0) gm/dl Albumin/Globulin Ratio (0.9-2) Vitamin B12 754 (211-911) pg/ml Folate > 24.00 (>5.38) ng/ml TSH (0.300-4.500) uIu/ml Free T4 (0.8-1.6) ng/dl Stool Occult Bld Scrn (Negative) 03/22/19 03/23/19 03/23/19 Range/Units 22:17 00:12 05:58 WBC 8.21 (4.8-10.8) K/uL RBC 3.24 L (4.2-5.4) M/uL Hgb 10.2 L (12.0-16.0) g/dL Hct 30.1 L (37-47) % MCV 92.9 (80-100) fL MCH 31.5 (25-34) pg MCHC 33.9 (32-36) g/dL RDW Std Deviation 41.4 (36.4-46.3) fL RDW Coeff of Michael 12.1 (11.5-14.5) % Plt Count 241 (130-400) K/uL MPV 9.9 (7.4-10.4) fL Immature Gran % (Auto) % Neut % (Auto) % Lymph % (Auto) % [place] % (Auto) % Eos % (Auto) % Baso % (Auto) % Reticulocyte % (Auto) (0.5-2.0) % Immature Gran # (Auto) (0.00-0.02) K/uL Neut # (Auto) (1.4-6.5) K/uL Lymph # (Auto) (1.2-3.4) K/uL [place] # (Auto) (0.11-0.59) K/uL Eos # (Auto) (0-0.5) K/uL Baso # (Auto) (0-0.2) K/uL Reticulocyte # (0.02-0.10) 10^6/uL Absolute Nucleated RBC (0-0) K/uL Nucleated RBC % (auto) % Peripher Smr Path Cons APTT 52.4 H* (21.0-31.0) Seconds PTT Ratio 1.9 Sodium (136-145) mmol/L Potassium (3.5-5.1) mmol/L Chloride (98-107) mmol/L Carbon Dioxide (21-32) mmol/L Anion Gap (3-11) BUN (7-18) mg/dl Creatinine (0.6-1.2) mg/dl Est Cr Clr Drug Dosing ml/min Est GFR ( Amer) Est GFR (Non-Af Amer) BUN/Creatinine Ratio (10-20) Glucose (70-99) mg/dl POC Glucose (70-99) Calcium (8.5-10.1) mg/dl Magnesium (1.8-2.4) mg/dl Iron (35-150) mcg/dl TIBC (250-450) mcg/dl Transferrin (200-360) mg/dl Ferritin (8-388) ng/ml Total Bilirubin (0.2-1) mg/dl AST (15-37) U/L ALT (12-78) U/L Alkaline Phosphatase (45-117) U/L Troponin I < 0.015 (0-0.045) ng/ml Total Protein (6.4-8.2) gm/dl Albumin (3.4-5.0) gm/dl Globulin (2.5-4.0) gm/dl Albumin/Globulin Ratio (0.9-2) Vitamin B12 (211-911) pg/ml Folate (>5.38) ng/ml TSH (0.300-4.500) uIu/ml Free T4 (0.8-1.6) ng/dl Stool Occult Bld Scrn (Negative) 03/23/19 03/23/19 03/23/19 Range/Units 05:58 05:58 05:58 WBC (4.8-10.8) K/uL RBC (4.2-5.4) M/uL Hgb (12.0-16.0) g/dL Hct (37-47) % MCV (80-100) fL MCH (25-34) pg MCHC (32-36) g/dL RDW Std Deviation (36.4-46.3) fL RDW Coeff of Michael (11.5-14.5) % Plt Count (130-400) K/uL MPV (7.4-10.4) fL Immature Gran % (Auto) % Neut % (Auto) % Lymph % (Auto) % [place] % (Auto) % Eos % (Auto) % Baso % (Auto) % Reticulocyte % (Auto) (0.5-2.0) % Immature Gran # (Auto) (0.00-0.02) K/uL Neut # (Auto) (1.4-6.5) K/uL Lymph # (Auto) (1.2-3.4) K/uL [place] # (Auto) (0.11-0.59) K/uL Eos # (Auto) (0-0.5) K/uL Baso # (Auto) (0-0.2) K/uL Reticulocyte # (0.02-0.10) 10^6/uL Absolute Nucleated RBC (0-0) K/uL Nucleated RBC % (auto) % Peripher Smr Path Cons APTT 69.4 H* (21.0-31.0) Seconds PTT Ratio 2.6 Sodium 133 L (136-145) mmol/L Potassium 4.1 (3.5-5.1) mmol/L Chloride 100 (98-107) mmol/L Carbon Dioxide 25 (21-32) mmol/L Anion Gap 8.0 (3-11) BUN 38 H (7-18) mg/dl Creatinine 1.48 H (0.6-1.2) mg/dl Est Cr Clr Drug Dosing 27.1 ml/min Est GFR ( Amer) 38.4 Est GFR (Non-Af Amer) 33.1 BUN/Creatinine Ratio 25.9 H (10-20) Glucose 175 H (70-99) mg/dl POC Glucose (70-99) Calcium 8.2 L (8.5-10.1) mg/dl Magnesium (1.8-2.4) mg/dl Iron (35-150) mcg/dl TIBC (250-450) mcg/dl Transferrin (200-360) mg/dl Ferritin (8-388) ng/ml Total Bilirubin (0.2-1) mg/dl AST (15-37) U/L ALT (12-78) U/L Alkaline Phosphatase (45-117) U/L Troponin I < 0.015 (0-0.045) ng/ml Total Protein (6.4-8.2) gm/dl Albumin (3.4-5.0) gm/dl Globulin (2.5-4.0) gm/dl Albumin/Globulin Ratio (0.9-2) Vitamin B12 (211-911) pg/ml Folate (>5.38) ng/ml TSH (0.300-4.500) uIu/ml Free T4 (0.8-1.6) ng/dl Stool Occult Bld Scrn (Negative) 03/23/19 03/23/19 03/23/19 Range/Units 08:30 11:36 12:36 WBC (4.8-10.8) K/uL RBC (4.2-5.4) M/uL Hgb (12.0-16.0) g/dL Hct (37-47) % MCV (80-100) fL MCH (25-34) pg MCHC (32-36) g/dL RDW Std Deviation (36.4-46.3) fL RDW Coeff of Michael (11.5-14.5) % Plt Count (130-400) K/uL MPV (7.4-10.4) fL Immature Gran % (Auto) % Neut % (Auto) % Lymph % (Auto) % [place] % (Auto) % Eos % (Auto) % Baso % (Auto) % Reticulocyte % (Auto) (0.5-2.0) % Immature Gran # (Auto) (0.00-0.02) K/uL Neut # (Auto) (1.4-6.5) K/uL Lymph # (Auto) (1.2-3.4) K/uL [place] # (Auto) (0.11-0.59) K/uL Eos # (Auto) (0-0.5) K/uL Baso # (Auto) (0-0.2) K/uL Reticulocyte # (0.02-0.10) 10^6/uL Absolute Nucleated RBC (0-0) K/uL Nucleated RBC % (auto) % Peripher Smr Path Cons APTT 61.9 H* (21.0-31.0) Seconds PTT Ratio 2.3 Sodium (136-145) mmol/L Potassium (3.5-5.1) mmol/L Chloride (98-107) mmol/L Carbon Dioxide (21-32) mmol/L Anion Gap (3-11) BUN (7-18) mg/dl Creatinine (0.6-1.2) mg/dl Est Cr Clr Drug Dosing ml/min Est GFR ( Amer) Est GFR (Non-Af Amer) BUN/Creatinine Ratio (10-20) Glucose (70-99) mg/dl POC Glucose 174 H (70-99) Calcium (8.5-10.1) mg/dl Magnesium (1.8-2.4) mg/dl Iron (35-150) mcg/dl TIBC (250-450) mcg/dl Transferrin (200-360) mg/dl Ferritin (8-388) ng/ml Total Bilirubin (0.2-1) mg/dl AST (15-37) U/L ALT (12-78) U/L Alkaline Phosphatase (45-117) U/L Troponin I (0-0.045) ng/ml Total Protein (6.4-8.2) gm/dl Albumin (3.4-5.0) gm/dl Globulin (2.5-4.0) gm/dl Albumin/Globulin Ratio (0.9-2) Vitamin B12 (211-911) pg/ml Folate (>5.38) ng/ml TSH (0.300-4.500) uIu/ml Free T4 (0.8-1.6) ng/dl Stool Occult Bld Scrn Negative (Negative) 03/23/19 03/23/19 03/24/19 Range/Units 16:09 20:05 06:38 WBC (4.8-10.8) K/uL RBC (4.2-5.4) M/uL Hgb (12.0-16.0) g/dL Hct (37-47) % MCV (80-100) fL MCH (25-34) pg MCHC (32-36) g/dL RDW Std Deviation (36.4-46.3) fL RDW Coeff of Michael (11.5-14.5) % Plt Count (130-400) K/uL MPV (7.4-10.4) fL Immature Gran % (Auto) % Neut % (Auto) % Lymph % (Auto) % [place] % (Auto) % Eos % (Auto) % Baso % (Auto) % Reticulocyte % (Auto) (0.5-2.0) % Immature Gran # (Auto) (0.00-0.02) K/uL Neut # (Auto) (1.4-6.5) K/uL Lymph # (Auto) (1.2-3.4) K/uL [place] # (Auto) (0.11-0.59) K/uL Eos # (Auto) (0-0.5) K/uL Baso # (Auto) (0-0.2) K/uL Reticulocyte # (0.02-0.10) 10^6/uL Absolute Nucleated RBC (0-0) K/uL Nucleated RBC % (auto) % Peripher Smr Path Cons APTT 62.6 H* (21.0-31.0) Seconds PTT Ratio 2.3 Sodium (136-145) mmol/L Potassium (3.5-5.1) mmol/L Chloride (98-107) mmol/L Carbon Dioxide (21-32) mmol/L Anion Gap (3-11) BUN (7-18) mg/dl Creatinine (0.6-1.2) mg/dl Est Cr Clr Drug Dosing ml/min Est GFR ( Amer) Est GFR (Non-Af Amer) BUN/Creatinine Ratio (10-20) Glucose (70-99) mg/dl POC Glucose 159 H 233 H (70-99) Calcium (8.5-10.1) mg/dl Magnesium (1.8-2.4) mg/dl Iron (35-150) mcg/dl TIBC (250-450) mcg/dl Transferrin (200-360) mg/dl Ferritin (8-388) ng/ml Total Bilirubin (0.2-1) mg/dl AST (15-37) U/L ALT (12-78) U/L Alkaline Phosphatase (45-117) U/L Troponin I (0-0.045) ng/ml Total Protein (6.4-8.2) gm/dl Albumin (3.4-5.0) gm/dl Globulin (2.5-4.0) gm/dl Albumin/Globulin Ratio (0.9-2) Vitamin B12 (211-911) pg/ml Folate (>5.38) ng/ml TSH (0.300-4.500) uIu/ml Free T4 (0.8-1.6) ng/dl Stool Occult Bld Scrn (Negative) 03/24/19 03/24/19 03/24/19 Range/Units 07:02 11:12 16:08 WBC (4.8-10.8) K/uL RBC (4.2-5.4) M/uL Hgb (12.0-16.0) g/dL Hct (37-47) % MCV (80-100) fL MCH (25-34) pg MCHC (32-36) g/dL RDW Std Deviation (36.4-46.3) fL RDW Coeff of Michael (11.5-14.5) % Plt Count (130-400) K/uL MPV (7.4-10.4) fL Immature Gran % (Auto) % Neut % (Auto) % Lymph % (Auto) % [place] % (Auto) % Eos % (Auto) % Baso % (Auto) % Reticulocyte % (Auto) (0.5-2.0) % Immature Gran # (Auto) (0.00-0.02) K/uL Neut # (Auto) (1.4-6.5) K/uL Lymph # (Auto) (1.2-3.4) K/uL [place] # (Auto) (0.11-0.59) K/uL Eos # (Auto) (0-0.5) K/uL Baso # (Auto) (0-0.2) K/uL Reticulocyte # (0.02-0.10) 10^6/uL Absolute Nucleated RBC (0-0) K/uL Nucleated RBC % (auto) % Peripher Smr Path Cons APTT (21.0-31.0) Seconds PTT Ratio Sodium (136-145) mmol/L Potassium (3.5-5.1) mmol/L Chloride (98-107) mmol/L Carbon Dioxide (21-32) mmol/L Anion Gap (3-11) BUN (7-18) mg/dl Creatinine (0.6-1.2) mg/dl Est Cr Clr Drug Dosing ml/min Est GFR ( Amer) Est GFR (Non-Af Amer) BUN/Creatinine Ratio (10-20) Glucose (70-99) mg/dl POC Glucose 174 H 183 H 149 H (70-99) Calcium (8.5-10.1) mg/dl Magnesium (1.8-2.4) mg/dl Iron (35-150) mcg/dl TIBC (250-450) mcg/dl Transferrin (200-360) mg/dl Ferritin (8-388) ng/ml Total Bilirubin (0.2-1) mg/dl AST (15-37) U/L ALT (12-78) U/L Alkaline Phosphatase (45-117) U/L Troponin I (0-0.045) ng/ml Total Protein (6.4-8.2) gm/dl Albumin (3.4-5.0) gm/dl Globulin (2.5-4.0) gm/dl Albumin/Globulin Ratio (0.9-2) Vitamin B12 (211-911) pg/ml Folate (>5.38) ng/ml TSH (0.300-4.500) uIu/ml Free T4 (0.8-1.6) ng/dl Stool Occult Bld Scrn (Negative) 03/24/19 03/25/19 03/25/19 Range/Units 20:13 07:23 07:28 WBC 8.66 (4.8-10.8) K/uL RBC 3.58 L (4.2-5.4) M/uL Hgb 11.5 L (12.0-16.0) g/dL Hct 32.9 L (37-47) % MCV 91.9 (80-100) fL MCH 32.1 (25-34) pg MCHC 35.0 (32-36) g/dL RDW Std Deviation 41.2 (36.4-46.3) fL RDW Coeff of Michael 12.1 (11.5-14.5) % Plt Count 379 (130-400) K/uL MPV 9.4 (7.4-10.4) fL Immature Gran % (Auto) 0.2 % Neut % (Auto) 67.9 % Lymph % (Auto) 16.7 % [place] % (Auto) 12.1 % Eos % (Auto) 2.8 % Baso % (Auto) 0.3 % Reticulocyte % (Auto) (0.5-2.0) % Immature Gran # (Auto) 0.02 (0.00-0.02) K/uL Neut # (Auto) 5.87 (1.4-6.5) K/uL Lymph # (Auto) 1.45 (1.2-3.4) K/uL [place] # (Auto) 1.05 H (0.11-0.59) K/uL Eos # (Auto) 0.24 (0-0.5) K/uL Baso # (Auto) 0.03 (0-0.2) K/uL Reticulocyte # (0.02-0.10) 10^6/uL Absolute Nucleated RBC (0-0) K/uL Nucleated RBC % (auto) % Peripher Smr Path Cons APTT (21.0-31.0) Seconds PTT Ratio Sodium (136-145) mmol/L Potassium (3.5-5.1) mmol/L Chloride (98-107) mmol/L Carbon Dioxide (21-32) mmol/L Anion Gap (3-11) BUN (7-18) mg/dl Creatinine (0.6-1.2) mg/dl Est Cr Clr Drug Dosing ml/min Est GFR ( Amer) Est GFR (Non-Af Amer) BUN/Creatinine Ratio (10-20) Glucose (70-99) mg/dl POC Glucose 153 H 202 H (70-99) Calcium (8.5-10.1) mg/dl Magnesium (1.8-2.4) mg/dl Iron (35-150) mcg/dl TIBC (250-450) mcg/dl Transferrin (200-360) mg/dl Ferritin (8-388) ng/ml Total Bilirubin (0.2-1) mg/dl AST (15-37) U/L ALT (12-78) U/L Alkaline Phosphatase (45-117) U/L Troponin I (0-0.045) ng/ml Total Protein (6.4-8.2) gm/dl Albumin (3.4-5.0) gm/dl Globulin (2.5-4.0) gm/dl Albumin/Globulin Ratio (0.9-2) Vitamin B12 (211-911) pg/ml Folate (>5.38) ng/ml TSH (0.300-4.500) uIu/ml Free T4 (0.8-1.6) ng/dl Stool Occult Bld Scrn (Negative) 05/10/19 05/10/19 Range/Units 07:28 11:20 WBC (4.8-10.8) K/uL RBC (4.2-5.4) M/uL Hgb (12.0-16.0) g/dL Hct (37-47) % MCV (80-100) fL MCH (25-34) pg MCHC (32-36) g/dL RDW Std Deviation (36.4-46.3) fL RDW Coeff of Michael (11.5-14.5) % Plt Count (130-400) K/uL MPV (7.4-10.4) fL Immature Gran % (Auto) % Neut % (Auto) % Lymph % (Auto) % [place] % (Auto) % Eos % (Auto) % Baso % (Auto) % Reticulocyte % (Auto) (0.5-2.0) % Immature Gran # (Auto) (0.00-0.02) K/uL Neut # (Auto) (1.4-6.5) K/uL Lymph # (Auto) (1.2-3.4) K/uL [place] # (Auto) (0.11-0.59) K/uL Eos # (Auto) (0-0.5) K/uL Baso # (Auto) (0-0.2) K/uL Reticulocyte # (0.02-0.10) 10^6/uL Absolute Nucleated RBC (0-0) K/uL Nucleated RBC % (auto) % Peripher Smr Path Cons APTT (21.0-31.0) Seconds PTT Ratio Sodium 133 L (136-145) mmol/L Potassium 4.0 (3.5-5.1) mmol/L Chloride 99 (98-107) mmol/L Carbon Dioxide 24 (21-32) mmol/L Anion Gap 10.0 (3-11) BUN 30 H (7-18) mg/dl Creatinine 1.54 H (0.6-1.2) mg/dl Est Cr Clr Drug Dosing 25.9 ml/min Est GFR ( Amer) 36.6 Est GFR (Non-Af Amer) 31.5 BUN/Creatinine Ratio 19.4 (10-20) Glucose 178 H (70-99) mg/dl POC Glucose 200 H (70-99) Calcium 8.9 (8.5-10.1) mg/dl Magnesium (1.8-2.4) mg/dl Iron (35-150) mcg/dl TIBC (250-450) mcg/dl Transferrin (200-360) mg/dl Ferritin (8-388) ng/ml Total Bilirubin 0.5 (0.2-1) mg/dl AST 12 L (15-37) U/L ALT 20 (12-78) U/L Alkaline Phosphatase 111 (45-117) U/L Troponin I (0-0.045) ng/ml Total Protein 7.5 (6.4-8.2) gm/dl Albumin 3.2 L (3.4-5.0) gm/dl Globulin 4.3 H (2.5-4.0) gm/dl Albumin/Globulin Ratio 0.7 L (0.9-2) Vitamin B12 (211-911) pg/ml Folate (>5.38) ng/ml TSH (0.300-4.500) uIu/ml Free T4 (0.8-1.6) ng/dl Stool Occult Bld Scrn (Negative) Imaging Data Radiologist's Impression: Radiology results as stated below per my review and the radiologist's interpretation: SINGLE VIEW CHEST CLINICAL HISTORY: Atrial fibrillation. FINDINGS: An AP, portable, upright chest radiograph is compared to study dated 03/20/2019 and correlated with chest CT dated 07/21/2018. The examination is degraded by portable technique and patient rotation. The heart is enlarged and there is atherosclerotic calcification of the thoracic aorta. The pulmonary vasc ulature is noncongested. Chronic interstitial thickening is similar previous. Atelectasis is noted at the left lung base. No airspace consolidation or large pleural effusion is identified. No pneumothorax is seen. The skeletal structures are osteopenic. The bony thorax is grossly intact. Postoperative change is noted in the left humeral head. Cholecystectomy clips are seen in the right upper quadrant. IMPRESSION: Cardiomegaly with no acute cardiopulmonary abnormality. Electronically signed by: Ridge Valerio M.D. 03/22/2019 11:07 AM ECG Data Attestation: I personally reviewed and interpreted this ECG as follows: Indication: palpitations Rate (beats per minute): 95 Rhythm: atrial fibrillation Findings: no acute ischemic change and no ectopy Blood Pressure Blood Pressure Findings: Normal blood pressure Blood Pressure Disposition: did not require urgent referral MDM Narrative This patient was evaluated and appeared to be in no significant distress. IV access was obtained and laboratory work was drawn. Patient was placed on the school bus monitor and found to be in a rate controlled atrial fibrillation. Patient is not currently anticoagulated however she is on aspirin. She was recently hospitalized and discharged for chest pain, it is unclear if atrial fib had played a role. I do not see an echocardiogram or stress test performed during that hospitalization. Given that the patient is elderly with diabetes, hypertension and hypercholesterolemia with atrial fibrillation and chest pain, I feel further management is warranted. Dr. Rodrigues of the hospitalist service was contacted and will evaluate the patient for further management. Patient is aware of the plan and agrees. Impression & Plan Substernal chest pain, New onset atrial fibrillation Discharge Plan Visit Data *Final* Discharge Date/Time: 03/22/19 14:39 Chief Complaint: Tachycardia Stated Complaint: IRREGULAR HEARTBEAT ED Provider: Vy Blanco Discharge Problem: Substernal chest pain, New onset atrial fibrillation Patient Disposition: Admitted As Inpatient Discharge Instructions Interventions: ED Discharge Assessment Last Done: 03/22/19 14:39 The scribe's documentation has been prepared under my direction and personally reviewed by me in its entirety. I confirm that the note above accurately reflects all work, treatment, procedures, and medical decision making performed by me.
--- NOTE | 2019-03-22 14:56 | History & Physical Report ---
Date of Service March 22, 2019 Assessment & Plan (1) Paroxysmal atrial fibrillation: 79 yo F w/ pMHx DMII with CKD, TIA, carotid stenosis s/p endarterectomy, CAD, HTN, HLD, chronic gastritis s/p hiatal hernia repair, LUZMA non-compliant with CPAP, who was referred to the ED by her PCP for cardiac symptoms (chest pain, palpitations, dizziness) and with a.fib confirmed by EKG, possibly on background of excess levothyroxine intake. Chest discomfort - Monitor on telemetry - Serial troponin - EKG, nitro, morphine PRN chest pain - Symptoms may be related to afib, but given symptoms and CAD hx (2 previous caths in distant past, no PCI) will order stress test Paroxysmal afib Noted on EKG in ED, could be iatrogenic hyperthyroid state or possibly more chronic - Continue home dose atenolol with PRN IV metoprolol 5mg q4h PRN HR >110 - Begin heparin drip given high [id number] score - Echo ordered for structural assessment Dizziness Ddx: afib, dehydration, anemia - Check orthostatic BPs - Euvolemic, no fluids for now - Work up/mx of ddx as described Iatrogenic hyperthyroid secondary to intake of excess levothyroxine TSH 0.012 and Free T4 2.10 on admission - Continue levothyroxine 88mcgs at present - Repeat TSH/T4 in 6 weeks Anemia Hgb on admission of 10.5, historically in 11-12s. No evidence per history (no NSAIDs, tobacco use, previous gastric ulcers, or hx of iron supplementation/infusion/blood transfusion) but concern for GI bleed given history of abnormal colonoscopy and family hx of colon cancer vs. anemia 2/2 CKD vs. blood loss from recent surgery. Patient hemodynamically stable. - Iron studies ordered: iron, ferritin, TIBC, transferrin, retic count, B12, folate, FOBT, peripheral smear - Trend CBC - If anemia worsens or hemodynamic/clinical instability, stop heparin and aspirin DM II with neuropathy Last A1c 7.8 (11/2018) - Continue home glimepiride with glucose monitoring ac/hs - Continue home duloxetine CKD III Creatinine close to ~1.5 baseline - Monitor w/ BMP GERD, recent hiatal hernia repair - Continue pantoprazole and famotidine HLD, h/o TIA & carotid stenosis -Continue aspirin and atorvastatin HTN BP under good control since admission - Continue home atenolol, amlodipine, losartan-HCTZ LUZMA Has history of diagnosis and sleep study but does not use CPAP at home - CPAP ordered and usage encouraged F/E/N - PO intake, no IVF - Electrolytes: No acute concerns - Diet: Heart Healthy/DM2 Diet VTE ppx - Anticoagulated with heparin drip as above Code Status: FULL (2) Anemia: (3) Hypothyroid: (4) CKD (chronic kidney disease) stage 3, GFR 30-59 ml/min: (5) HTN (hypertension): (6) HLD (hyperlipidemia): (7) LUZMA (obstructive sleep apnea): (8) Chronic gastritis: (9) Diabetes mellitus with neuropathy: History of Present Illness Primary Care Provider: Jack Holloway MD 79 yo F w/ pMHx DMII with CKD, TIA, carotid stenosis s/p endarterectomy, CAD, HTN, HLD, chronic gastritis s/p hiatal hernia repair, LUZMA non-compliant with CPAP, who was referred to the ED by her PCP for symptomatic a.fib confirmed by EKG. Patient had gone to see her PCP with sternal chest pain rated 5/10. She describes the pain as sharp, intermittent, radiating to the neck, exacerbated by deep breaths, not affected by ambulation/exertion and not affected by position. She has also had intermittent episodes of heart racing for the past month, worse when lying down (although she denies PND) and associated with palpitations and occasionally feels a large thump in her chest and she said she feels like Im dying. Additionally she has had episodes of dizziness, most recently last week. She felt it coming on and was able to grab onto something before falling. She denies any feelings of the room spinning or syncopal episodes/LOC. She denies any change to vision or hearing. She ambulates independently at baseline, although states she sometimes feels wobbly. She denies change in exercise tolerance. She has a history of thyroidectomy for a benign goiter in 1963. Her dose of levothyroxine was recently changed and it was discovered she had been taking both doses, a total of 188mcgs for almost three months. The patient feels her palpitations and chest symptoms precede this. Of note she was admitted 03/19/19 with similar symptoms, treated for GERD and discharged following normal troponin x1 and ECG with NSR and no evidence of ACS with plans for outpatient stress test. A holter monitor in February 2018 showed NSR with frequent PACs and isolated PVCs. Historically she has taken taking rabeprazole, and was discharged with additional scheduled Pepcid. She is no longer taking this as she found it ineffective. Allergies Allergy/AdvReac Type Severity Reaction Status Date / Time adhesive Allergy Mild red/blistered Verified 03/22/19 09:22 skin latex Allergy Mild CONTACT Verified 03/22/19 09:22 DERMATITIS carvedilol Allergy Unknown pt unsure, Unverified 03/22/19 09:22 listed prior omeprazole AdvReac Intermediate HALLUCINATI Verified 03/22/19 09:22 ONS oxycodone AdvReac Intermediate itching Verified 03/22/19 09:22 phenobarbital AdvReac Intermediate HALLUCINATI Verified 03/22/19 09:22 ONS cephalexin AdvReac Mild DIARRHEA Verified 03/22/19 09:22 fentanyl AdvReac Mild DIARRHEA Unverified 03/22/19 09:22 fluoxetine AdvReac Mild DIARRHEA Unverified 03/22/19 09:22 levofloxacin AdvReac Mild DIARRHEA Verified 03/22/19 09:22 meperidine AdvReac Mild HEADACHES Verified 03/22/19 09:22 metformin AdvReac Mild DIARRHEA Unverified 03/22/19 09:22 Sulfa (Sulfonamide AdvReac Mild DIARRHEA Verified 03/22/19 09:22 Antibiotics) Butter Oil AdvReac Mild DIARRHEA Uncoded 03/22/19 09:22 Home Medications Home Medications Medication Instructions Recorded Confirmed Type amlodipine 10 mg PO QAM 07/21/18 03/22/19 History aspirin [Aspirin Low Dose] 81 mg PO HS 07/21/18 03/22/19 History atenolol 100 mg PO QAM 07/21/18 03/22/19 History atorvastatin 20 mg PO QAM 07/21/18 03/22/19 History glimepiride 2 mg PO BID 07/21/18 03/22/19 History levothyroxine 88 mcg PO QAM 07/21/18 03/22/19 History multivitamin 1 cap PO QAM 07/21/18 03/22/19 History rabeprazole [Aciphex] 20 mg PO QAM 07/21/18 03/22/19 History ascorbic acid (vitamin C) [Vitamin 500 mg PO QAM 02/23/19 03/22/19 History C] cholecalciferol (vitamin D3) 1,000 unit PO QAM 02/23/19 03/22/19 History [Vitamin D3] losartan-hydrochlorothiazide 1 tab PO DAILY 03/01/19 03/22/19 History famotidine 20 mg PO BID 14 Days #28 tab 03/20/19 03/22/19 Rx ondansetron 4 mg PO DAILY PRN 10 Days #10 tab 03/20/19 03/22/19 Rx Past Med/Surg History Medical History Chronic gastritis HLD (hyperlipidemia) LUZMA (obstructive sleep apnea) HTN (hypertension) CKD (chronic kidney disease) stage 3, GFR 30-59 ml/min Diabetes mellitus H/O: hysterectomy Hypothyroid 2/2 thyroidectomy H/O total thyroidectomy Bowel perforation (Resolved) Paroxysmal atrial fibrillation New onset atrial fibrillation (Inactive) Anxiety Benign essential tremor Chronic kidney disease, stage III (moderate) Depression Diabetes mellitus, type 2 NIDDM Diverticular disease HX DIVERTICULITIS PER RECORDS GERD (gastroesophageal reflux disease) Hiatal hernia History of blood transfusion POST-OP PER RECORDS History of palpitations Hx of intestinal obstruction 50 YEARS AGO PER RECORDS Hyperlipidemia Hypertension IBS (irritable bowel syndrome) Macular degeneration Obesity Osteoarthritis RLS (restless legs syndrome) Sleep apnea NO DEVICE Transient ischemic attack (TIA) 03/2018 Surgical History History of repair of hiatal hernia 02/2019 Previous section S/P carotid endarterectomy S/P lumpectomy of breast S/P cholecystectomy S/P appendectomy Family history of reaction to anesthesia SON-HARD TIME WAKING UP. History of appendectomy History of back surgery History of blepharoplasty History of bowel resection History of cardiac cath X2 TOTAL (10+ YEARS AGO)= NO STENTS History of section X3 History of cholecystectomy History of herniorrhaphy VENTRAL HERNIA History of inguinal hernia repair X3 (CHILD) History of lumpectomy of right breast "BENIGN History of repair of rotator cuff RIGHT X3, LEFT X 1 History of right-sided carotid endarterectomy 3+ YEARS AGO History of thyroidectomy History of total abdominal hysterectomy and bilateral salpingo-oophorectomy History of tubal ligation Family History Son Family history of reaction to anesthesia SLOW TO WAKE Brother Family history of diabetes mellitus Sister Family history of diabetes mellitus Mother Family history of diabetes mellitus Uncle Family hx of colon cancer X 3 Social History Preferred Language: Nepalese Communication Ability: Effective Beliefs That Will Affect Care: None marital status: Current Living Situation: Spouse Other Information That Helps Us Care for You: No Feels Safe at Home: Yes Safety Concerns: Feels Safe At This Time Smoking Status: Never smoker Second Hand Exposure: No Hx Alcohol Use: No Hx Substance Use: No Review of Systems Review of Systems: General: No fevers, +chills, +sweats, +fatigue, no change in appetite, eating well Skin: No rashes Head/Neck: +occasional headache, +dizziness Eyes: No changes in vision Ears: No hearing loss Nose: No epistaxis CV: No syncope, no exercise intolerance Lungs: No MCCAULEY, no cough, no PND, no hemoptysis GI: No nausea, +vomiting (once two days ago, no blood), no dysphagia, no abdominal pain, no BRBPR or tarry stools, no hemoptysis, + regular stools without any diarrhea or constipation : +stress incontinence, no UTI sx Endocrine: +temperature intolerance (always feels cold) MS: +arthralgia, +arthritis Neuro: No vertigo, +numbness and tingling in lower leg Psych: + Season affective disorder, +issues falling asleep Physical Exam Constitutional: WD/WN, vitals as above average body habitus and + thin; no acute distress and not ill appearing Eyes: no conjunctival abnormality and no scleral abnormality ENMT: external ear and nose normal, oropharynx normal Neck: normal visual inspection and trachea midline Respiratory: normal respiratory effort, lungs clear to auscultation no cough Auscultation: no crackles Cardiovascular: Rate/Rhythm: + tachycardic Heart Sounds: normal S1 and normal S2 Vessels: normal peripheral pulses and dorsalis pedis pulses present Extremities: no calf tenderness, no edema and no varicosities Gastrointestinal (Abdomen): normal bowel sounds, soft, nontender, no hepatosplenomegaly Inspection/Auscultation: abdomen not distended Percussion/Palpation: no guarding and abdomen not rigid Musculoskeletal: Head/Neck/Chest: normocephalic, head atraumatic and neck supple Skin: no rashes, warm and dry Neurologic: normal touch/pain/proprioception and moves all extremities; no focal motor deficits Psychiatric: A+Ox3, euthymic affect Speech: normal rate/rhythm/volume of speech Lymphatic: no cervical lymphadenopathy Results & Data Vital Signs (Past 12 Hours) Vital Signs Temp Pulse Resp BP Pulse Ox 03/22/19 14:39 95 H 17 120/74 98 03/22/19 13:01 98 H 26 H 121/79 95 03/22/19 13:00 101 H 24 95 03/22/19 12:32 100 H 24 93 03/22/19 12:31 102 H 27 H 119/60 96 03/22/19 12:30 93 H 20 96 03/22/19 12:01 96 H 26 H 117/58 L 96 03/22/19 12:00 103 H 16 90 03/22/19 11:31 95 H 23 115/62 96 03/22/19 11:30 96 H 26 H 97 03/22/19 11:03 101 H 19 03/22/19 11:02 91 H 22 145/79 H 94 03/22/19 11:00 91 H 20 03/22/19 09:40 96 H 23 123/60 96 03/22/19 09:39 92 H 24 123/60 95 03/22/19 09:38 96 H 27 H 03/22/19 09:00 90 24 03/22/19 08:56 85 21 03/22/19 08:52 103 H 18 132/92 03/22/19 08:42 36.5 C 92 H 20 135/97 97 Code Status & VTE Plan Code Status FULL VTE Prophylaxis Plan VTE Prophylaxis will be ordered: Yes Supervising Physician Co-Signing Physician Notes Resident Physician Supervision Note: I independently interviewed and examined the patient and verified the lane history and physical, reviewed labs and image studies, discussed the case with the resident Dr. Metz and agree with the findings and care plan. Resident Activity Tracking Resident Involvement: Resident Care Provided Care Provided: Adult Hospital Medicine
[2019-03-22] MEDS ORDERED: ONDANSETRON 4 MG OD TAB PO PRN (15:16)
[2019-03-22] MEDS ORDERED: ONDANSETRON INJ 2 MG/ML 2 ML VIAL IV PRN ×2 (15:16→16:05)
[2019-03-22] MEDS ORDERED: POLYETHYLENE (MIRALAX) 17 GM PACK PO PRN (16:05)
[2019-03-22] MEDS ORDERED: MAGNESIUM HYDROXIDE SUSP 30 ML UDC PO PRN (16:05)
[2019-03-22] MEDS ORDERED: ALUMINUM/MAGNESIUM SUSP 30 ML UDC PO PRN (16:05)
[2019-03-22] MEDS ORDERED: METOPROLOL TARTRATE 1 MG/ML VIAL IV PRN (16:12)
[2019-03-22] MEDS ORDERED: GLUCOSE 40% GEL 15 GM TUBE PO PRN ×2 (16:20→20:23)
[2019-03-22] MEDS ORDERED: GLUCAGON FOR INJ 1 MG VIAL SQ PRN ×2 (16:20→20:23)
[2019-03-22] MEDS ORDERED: GLUCOSE 10 TABS/TUBE PO PRN ×2 (16:20→20:23)
[2019-03-22] MEDS ORDERED: DEXTROSE 50% 50 ML SYRINGE IV PRN ×2 (16:20→20:23)
[2019-03-22] MEDS ORDERED: CARBOHYDRATES FOR HYPOGLYCEMIA PO PRN ×2 (16:20→20:23)
[2019-03-22] MEDS: ATORVASTATIN 20 MG TAB PO SCH (16:54)
[2019-03-22] MEDS: AMLODIPINE BESYLATE 5 MG TAB PO SCH (16:54)
[2019-03-22] MEDS: ATENOLOL 50 MG TABLET PO SCH (16:55)
[2019-03-22] MEDS: PANTOprazole 40 MG TAB PO SCH (16:56)
[2019-03-22] MEDS: LOSARTAN/HCTZ 50/12.5MG TAB PO SCH (16:56)
[2019-03-22] MEDS: MULTIVITAMIN TAB PO SCH (16:56)
[2019-03-22] MEDS: CHOLECALCIFEROL 1,000 UNITS TAB PO SCH (16:57)
[2019-03-22] MEDS: ASCORBIC ACID 500 MG TAB PO SCH (16:57)
[2019-03-22] MEDS ORDERED: Heparin IV Standard *NO* Bolus IV ONE (17:01)
[2019-03-22 17:41] LABS: Reticulocytes # 0.03 10^6/uL (0.02-0.10)
[2019-03-22 18:01] LABS: Ferritin 292.8 ng/ml (8-388); Iron 17 mcg/dl (35-150); Transferrin 165 mg/dl (200-360); Troponin I < 0.015 ng/ml (0-0.045)
[2019-03-22] MEDS: ACETAMINOPHEN 325 MG TAB PO PRN ×2 (18:09→21:55)
[2019-03-22 18:11] LABS: Vitamin B12 754 pg/ml (211-911)
[2019-03-22 18:12] LABS: Folate (Folic Acid) > 24.00 ng/ml (>5.38)
[2019-03-22] MEDS: Heparin Adult STANDARD Wt-Based Dextrose 5% 25,000 units/500 mL IV SCH (18:20)
[2019-03-22] MEDS ORDERED: APIXABAN 2.5 MG TAB PO SCH (21:00)
[2019-03-22] MEDS ORDERED: GLIMEPIRIDE 2 MG TAB PO SCH (21:00)
[2019-03-22] MEDS: INSULIN ASPART 100 UNITS/ML 3 ML PEN SC SCH (21:18)
[2019-03-22] MEDS: ASPIRIN 81 MG ECTAB PO SCH (21:18)
[2019-03-22] MEDS: FAMOTIDINE 20 MG TAB PO SCH (21:19)
[2019-03-23 00:42] LABS: Partial Thromboplastin Ratio 1.9
[2019-03-23 00:45] LABS: Partial Thromboplastin Time 52.4 Seconds (21.0-31.0)
[2019-03-23] MEDS: ACETAMINOPHEN 325 MG TAB PO PRN ×2 (05:57→18:54)
[2019-03-23] MEDS: LEVOTHYROXINE SODIUM 88 MCG TABLET PO SCH (05:57)
[2019-03-23 06:35] LABS: Hematocrit (blood only) 30.1 % (37-47); Hemoglobin 10.2 g/dL (12.0-16.0); Mean Corpuscular Hgb Conc 33.9 g/dL (32-36); Mean Corpuscular Volume 92.9 fL (80-100); Mean Platelet Volume 9.9 fL (7.4-10.4); Platelet Count 241 K/uL (130-400); RDW Coefficient of Variation 12.1 % (11.5-14.5); RDW Standard Deviation 41.4 fL (36.4-46.3); Red Blood Count 3.24 M/uL (4.2-5.4); White Blood Count 8.21 K/uL (4.8-10.8)
[2019-03-23 06:56] LABS: Partial Thromboplastin Ratio 2.6
[2019-03-23 07:12] LABS: BUN Creatinine Ratio 25.9 (10-20); Calcium 8.2 mg/dl (8.5-10.1); Creatinine Clr Calc Pharmacy 27.1 ml/min; Est GFR (African American) 38.4; Est GFR (Non-African American) 33.1; Potassium 4.1 mmol/L (3.5-5.1)
[2019-03-23 07:29] LABS: Partial Thromboplastin Time 69.4 Seconds (21.0-31.0)
[2019-03-23] MEDS: DULOXETINE HCL 60 MG CAP PO SCH (08:15)
[2019-03-23] MEDS: ATENOLOL 50 MG TABLET PO SCH (08:16)
[2019-03-23] MEDS: FAMOTIDINE 20 MG TAB PO SCH ×2 (08:16→20:11)
[2019-03-23] MEDS: AMLODIPINE BESYLATE 5 MG TAB PO SCH (08:16)
[2019-03-23] MEDS: PANTOprazole 40 MG TAB PO SCH (08:16)
[2019-03-23] MEDS: ATORVASTATIN 20 MG TAB PO SCH (08:17)
[2019-03-23] MEDS: CHOLECALCIFEROL 1,000 UNITS TAB PO SCH (08:17)
[2019-03-23] MEDS: LOSARTAN/HCTZ 50/12.5MG TAB PO SCH (08:17)
[2019-03-23] MEDS: MULTIVITAMIN TAB PO SCH (08:17)
[2019-03-23] MEDS: ASCORBIC ACID 500 MG TAB PO SCH (08:17)
[2019-03-23] MEDS: INSULIN ASPART 100 UNITS/ML 3 ML PEN SC SCH ×4 (08:18→20:13)
[2019-03-23] MEDS ORDERED: METOPROLOL TARTRATE 25 MG TAB PO STA (11:17)
--- NOTE | 2019-03-23 12:19 | Family Medicine Progress Note ---
Date of Service March 23, 2019 Assessment & Plan (1) Atrial fibrillation by electrocardiogram: 79 yo F w/ pMHx DMII with CKD, TIA, carotid stenosis s/p endarterectomy, CAD, HTN, HLD, chronic gastritis s/p hiatal hernia repair, LUZMA non-compliant with CPAP, who was referred to the ED by her PCP for her symptoms of chest pain and new onset A. Fib Chest discomfort - Much improved today, intermittent with GERD symptoms - Serial troponins negative - Symptoms unlikely to be related to afib, or CAD based on hx - Will not get stress test as inpatient but have outpatient follow up for her atrial fibrillation with cardiology - Discussed with cardiology. Atrial Fibrillation Noted on EKG in ED, could be iatrogenic hyperthyroid state or possibly more chronic - Changed home atenolol to metoprolol 75 mg BID with goal heart rate in the 80's or below - On heparin drip given high [id number] score will transition to oral medication today. - Echo performed this morning awaiting read. Dizziness - Currently asymptomatic, possibly secondary to atrial fibrillation causing hypotension - Will assess orthostatics and echo today Iatrogenic hyperthyroid secondary to intake of excess levothyroxine TSH 0.012 and Free T4 2.10 on admission - Continue levothyroxine 88mcgs at present - Repeat TSH/T4 in 6 weeks Anemia Hgb on admission of 10.5, historically in 11-12s. No evidence per history (no NSAIDs, tobacco use, previous gastric ulcers, or hx of iron supplementation/infusion/blood transfusion) but concern for GI bleed given history of abnormal colonoscopy and family hx of colon cancer vs. anemia 2/2 CKD vs. blood loss from recent surgery. Patient hemodynamically stable. - Iron studies ordered, show a iron deficiency picture vs anemia of chronic inflammation - Continuing to trend CBC DM II with neuropathy Last A1c 7.8 (11/2018) - Continue home glimepiride with glucose monitoring ac/hs - Continue home duloxetine CKD III Creatinine close to ~1.5 baseline - Monitor w/ BMP GERD, recent hiatal hernia repair - Continue pantoprazole and famotidine HLD, h/o TIA & carotid stenosis -Continue aspirin and atorvastatin HTN BP under good control since admission - Continue home atenolol, amlodipine, losartan-HCTZ LUZMA Has history of diagnosis and sleep study but does not use CPAP at home - CPAP ordered and usage encouraged F/E/N - PO intake, no IVF - Electrolytes: No acute concerns - Diet: Heart Healthy/DM2 Diet VTE ppx - Anticoagulated with heparin drip as above will transition to oral today Code Status: FULL (2) Diabetes mellitus with neuropathy: (3) History of repair of hiatal hernia: (4) Chronic gastritis: (5) Anemia: (6) HLD (hyperlipidemia): (7) LUZMA (obstructive sleep apnea): (8) HTN (hypertension): (9) CKD (chronic kidney disease) stage 3, GFR 30-59 ml/min: Supervising Physician Co-Signing Physician Notes Resident Physician Supervision Note: I independently interviewed and examined the patient and verified the lane history and physical, reviewed labs and image studies, discussed the case with the resident Dr. Resendez and agree with the findings and care plan. Subjective Margaret Breaux resting comfotably in bed today, not endorsing any chest pain, shortness of breath, light headedness or other discomfort at this time. She has some trepidation over her new diagnosis of atrial fibrillation and we discussed at length what that entails for her. Review of Systems Constitutional: + body aches (Occasional body aches); no fever, no chills, no sweats and no fatigue Eyes: no problem reported Ear, Nose, Mouth, Throat: no problem reported Respiratory: no cough, no dyspnea and no wheezing Cardiovascular: no chest pain, no dyspnea, no palpitations, no syncope and no calf pain Gastrointestinal: no abdominal pain, no nausea and no vomiting Physical Exam Constitutional: well developed and well nourished; no acute distress Neck: normal visual inspection Respiratory: normal respiratory effort, lungs clear to auscultation Cardiovascular: Rate/Rhythm: regular rate; + abnormal rhythm (Irregularly irregular rhythm rates in 80's 90's) Heart Sounds: no click, no gallop, no murmur and no cardiac rub Extremities: no calf tenderness Gastrointestinal (Abdomen): normal bowel sounds, soft, nontender, no hepatosplenomegaly Skin: no rashes, warm and dry Neurologic: PERRL, EOMI, accommodation nl, no face palsy, no dysarthria Psychiatric: A+Ox3, euthymic affect Results & Data Vital Signs (Past 12 Hours) Vital Signs Temp Pulse Resp BP Pulse Ox 03/23/19 11:50 37.0 C 76 20 115/69 97 03/23/19 08:01 36.8 C 89 18 105/64 96 03/23/19 06:51 37.0 C 111 H 18 112/68 91 03/23/19 03:14 37 C 96 H 20 107/68 94 Resident Activity Tracking Resident Involvement: Resident Care Provided Care Provided: Adult [facility]
[2019-03-23 13:09] LABS: Partial Thromboplastin Ratio 2.3
[2019-03-23 13:17] LABS: Partial Thromboplastin Time 61.9 Seconds (21.0-31.0)
[2019-03-23] MEDS: Heparin Adult STANDARD Wt-Based Dextrose 5% 25,000 units/500 mL IV SCH (17:35)
[2019-03-23] MEDS: METOPROLOL TARTRATE 50 MG TAB PO SCH (20:11)
[2019-03-23] MEDS: ASPIRIN 81 MG ECTAB PO SCH (20:11)
[2019-03-24] MEDS: LEVOTHYROXINE SODIUM 88 MCG TABLET PO SCH (05:58)
[2019-03-24 07:22] LABS: Partial Thromboplastin Ratio 2.3
[2019-03-24 07:32] LABS: Partial Thromboplastin Time 62.6 Seconds (21.0-31.0)
[2019-03-24] MEDS: MULTIVITAMIN TAB PO SCH (08:02)
[2019-03-24] MEDS: PANTOprazole 40 MG TAB PO SCH (08:02)
[2019-03-24] MEDS: AMLODIPINE BESYLATE 5 MG TAB PO SCH (08:02)
[2019-03-24] MEDS: LOSARTAN/HCTZ 50/12.5MG TAB PO SCH (08:02)
[2019-03-24] MEDS: ATORVASTATIN 20 MG TAB PO SCH (08:02)
[2019-03-24] MEDS: CHOLECALCIFEROL 1,000 UNITS TAB PO SCH (08:02)
[2019-03-24] MEDS: FAMOTIDINE 20 MG TAB PO SCH ×2 (08:03→20:58)
[2019-03-24] MEDS: METOPROLOL TARTRATE 50 MG TAB PO SCH ×3 (08:03→20:58)
[2019-03-24] MEDS: DULOXETINE HCL 60 MG CAP PO SCH (08:03)
[2019-03-24] MEDS: ASCORBIC ACID 500 MG TAB PO SCH (08:03)
[2019-03-24] MEDS: INSULIN ASPART 100 UNITS/ML 3 ML PEN SC SCH ×4 (08:04→21:01)
[2019-03-24] MEDS: APIXABAN 2.5 MG TAB PO SCH ×2 (12:18→20:57)
--- NOTE | 2019-03-24 12:25 | Family Medicine Progress Note ---
Date of Service March 24, 2019 Assessment & Plan (1) Atrial fibrillation by electrocardiogram: 79 yo F w/ pMHx DMII with CKD, TIA, carotid stenosis s/p endarterectomy, CAD, HTN, HLD, chronic gastritis s/p hiatal hernia repair, LUZMA non-compliant with CPAP, who was referred to the ED by her PCP for her symptoms of chest pain and new onset A. Fib. Chest discomfort -Improved today, intermittent with GERD symptoms - Serial troponins negative - Symptoms unlikely to be related to afib, or CAD based on hx - Will not get stress test as inpatient but have outpatient follow up for her atrial fibrillation with cardiology. Atrial Fibrillation -Noted on EKG in ED, could be iatrogenic hyperthyroid state or possibly more chronic - Changed home atenolol to metoprolol 125 mg BID with goal heart rate in the 80's or below. Has been ranging in 90-110s - On heparin drip given high [id number] score will transition to oral medication today --> Apixaban 2.5 mg BID - Echo 03/23: moderate concentric LVH, normal LV systolic fxn, LA moderately dilated Dizziness - Currently asymptomatic, possibly secondary to atrial fibrillation causing hypotension Iatrogenic hyperthyroid secondary to intake of excess levothyroxine -TSH 0.012 and Free T4 2.10 on admission - Continue levothyroxine 88mcgs at present -Will Repeat TSH/T4 in 6 weeks Anemia -Hgb on admission of 10.5, historically in 11-12s. No evidence per history (no NSAIDs, tobacco use, previous gastric ulcers, or hx of iron supplementation/infusion/blood transfusion) but concern for GI bleed given history of abnormal colonoscopy and family hx of colon cancer vs. anemia 2/2 CKD vs. blood loss from recent surgery. Patient hemodynamically stable. - Iron studies ordered, show a iron deficiency picture vs anemia of chronic inflammation - Hgb 10.2 today, will cont to trend CBC DM II with neuropathy -Last A1c 7.8 (11/2018) - Continue home glimepiride with glucose monitoring ac/hs - Continue home duloxetine CKD III -Creatinine at baseline ~1.5 -Will cont monitor w/ BMP GERD- s/p recent hiatal hernia repair - Continue pantoprazole and famotidine HLD, h/o TIA & carotid stenosis -Continue aspirin and atorvastatin HTN BP under good control since admission - Continue home atenolol, amlodipine, losartan-HCTZ LUZMA -Has history of diagnosis and sleep study but does not use CPAP at home - CPAP ordered and usage encouraged FEN/GI: Heart Healthy/DM2 Diet, no IVF DVT Prophylaxis: heparin gtt d/c, start eliquis today Full Code Supervising Physician Co-Signing Physician Notes Resident Physician Supervision Note: I independently interviewed and examined the patient and verified the lane history and physical, reviewed labs and image studies, discussed the case with the resident Dr. Joel and agree with the findings and care plan. Subjective 79 y/o F found in bed this AM in NAD. Reports no acute overnight events. Tele shows Afib in 90s-110s overnight. Pt denies any CP, SOB, lightheadedness at present. Tolerating PO intake. No issues voiding. No other acute concerns or complaints. Review of Systems Review of Systems: All systems reviewed & are unremarkable except as noted in HPI & below Physical Exam Constitutional: WD/WN, vitals as above Eyes: PERRL, conjunctivae normal, anicteric sclerae ENMT: external ear and nose normal, oropharynx normal Respiratory: normal respiratory effort, lungs clear to auscultation Cardiovascular: irregularly irregular in 90-110s Gastrointestinal (Abdomen): normal bowel sounds, soft, nontender, no hepatosplenomegaly Skin: no rashes, warm and dry Psychiatric: A+Ox3, euthymic affect Lymphatic: no LE swelling Results & Data Vital Signs (Past 12 Hours) Vital Signs Temp Pulse Pulse Resp BP BP Pulse Ox 03/24/19 11:07 37.1 C 98 H 20 129/83 95 03/24/19 07:07 36.4 C L 127 H 20 120/72 96 03/24/19 04:00 37.1 C 111 H 20 112/63 92 Laboratory Results Laboratory Results - last 24 hr 03/23/19 03/23/19 03/23/19 11:36 12:36 16:09 APTT 61.9 H* PTT Ratio 2.3 POC Glucose 174 H 159 H 03/23/19 03/24/19 03/24/19 20:05 06:38 07:02 APTT 62.6 H* PTT Ratio 2.3 POC Glucose 233 H 174 H 03/24/19 11:12 APTT PTT Ratio POC Glucose 183 H Medications Administered Current Inpatient Medications Acetaminophen (Tylenol) 650 mg PO Q4H PRN PRN Reason: Pain or Fever Stop: 04/21/19 15:15 Last Admin: 03/23/19 18:54 Dose: 650 mg Documented by: Al Hydrox/Mg Hydrox/Simethicone (Maalox) 15 ml PO Q4H PRN PRN Reason: Dyspepsia Stop: 04/21/19 16:04 Amlodipine Bes[facility] ([facility]asc) [facility] [place] Stop: 04/21/19 15:15 Last Admin: 03/24/19 08:02 Dose: 10 mg Documented by: Apixaban (Eliquis) 2.5 mg PO BID [facility] Stop: 04/23/19 11:59 Last Admin: 03/24/19 12:18 Dose: 2.5 mg Documented by: Ascorbic Acid (Vitamin C) 500 mg PO QAM [facility] Stop: 04/21/19 15:15 Last Admin: 03/24/19 08:03 Dose: 500 mg Documented by: Aspirin (Ecotrin Ectab) 81 mg PO HS [facility] Stop: 04/21/19 20:59 Last Admin: 03/23/19 20:11 Dose: 81 mg Documented by: Atorvastatin Calcium (Lipitor) [facility] [place] Stop: 04/21/19 15:15 Last Admin: 03/24/19 08:02 Dose: 20 mg Documented by: Dextrose (Dextrose 50%) 25 - 50 ml IV UD PRN; Protocol PRN Reason: Hypoglycemia Protocol Stop: 04/21/19 16:19 Dextrose (Dextrose 50%) 25 - 50 ml IV UD PRN; Protocol PRN Reason: Hypoglycemia Protocol Stop: 04/21/19 20:22 Duloxetine HCl (Cymbalta) 60 mg PO [facility] Stop: 04/22/19 08:59 Last Admin: 03/24/19 08:03 Dose: 60 mg Documented by: Famotidine (Pepcid) 20 mg PO BID [facility] Stop: 04/21/19 20:59 Last Admin: 03/24/19 08:03 Dose: 20 mg Documented by: Glimepiride (Amaryl) 2 mg PO BID [facility] Stop: 04/21/19 20:59 Last Admin: 03/22/19 20:54 Dose: Not Given Documented by: Glucagon (Glucagen) 1 mg SQ UD PRN; Protocol PRN Reason: Hypoglycemia Protocol Stop: 04/21/19 16:19 Glucagon (Glucagen) 1 mg SQ UD PRN; Protocol PRN Reason: Hypoglycemia Protocol Stop: 04/21/19 20:22 Glucose (Glucose 40%) 15 - 30 gm PO UD PRN; Protocol PRN Reason: Hypoglycemia Protocol Stop: 04/21/19 16:19 Glucose (Dex4 Glucose) 4 - 8 tabs PO UD PRN; Protocol PRN Reason: Hypoglycemia Protocol Stop: 04/21/19 16:19 Glucose (Glucose 40%) 15 - 30 gm PO UD PRN; Protocol PRN Reason: Hypoglycemia Protocol Stop: 04/21/19 20:22 Glucose (Dex4 Glucose) 4 - 8 tabs PO UD PRN; Protocol PRN Reason: Hypoglycemia Protocol Stop: 04/21/19 20:22 HCTZ/Losartan Potassium (Hyzaar 50/12.5mg) 1 tab PO DAILY [facility] Stop: 04/21/19 15:15 Last Admin: 03/24/19 08:02 Dose: 1 tab Documented by: Insulin Aspart (Novolog Flexpen) 0 units SC ACHS [facility] Stop: 04/21/19 20:59 Last Admin: 03/24/19 12:19 Dose: 3 units Documented by: Levothyroxine Sodium (Synthroid) 88 mcg PO DAILYBB [facility] Stop: 04/22/19 06:29 Last Admin: 03/24/19 05:58 Dose: 88 mcg Documented by: Magnesium Hydroxide (Milk Of Magnesia) 30 ml PO Q12H PRN PRN Reason: Constipation Stop: 04/21/19 16:04 Metoprolol Tartrate (Lopressor) 5 mg IV Q4 PRN PRN Reason: Tachycardia greater than 110 Stop: 04/21/19 16:11 Last Admin: 03/22/19 18:10 Dose: 5 mg Documented by: Metoprolol Tartrate (Lopressor) 125 mg PO BID [facility] Stop: 04/23/19 08:59 Last Admin: 03/24/19 09:55 Dose: 50 mg Documented by: Miscellaneous (Carbohydrates For Hypoglycemia) 15 - 30 gm PO UD PRN PRN Reason: Hypoglycemia Treatment Stop: 04/21/19 16:19 Miscellaneous (Carbohydrates For Hypoglycemia) 15 - 30 gm PO UD PRN PRN Reason: Hypoglycemia Treatment Stop: 04/21/19 20:22 Multivitamins (Multivitamin Tab) 1 tab PO QAM [facility] Stop: 04/21/19 15:15 Last Admin: 03/24/19 08:02 Dose: 1 tab Documented by: Nitroglycerin (Nitrostat) 0.4 mg SL UD PRN PRN Reason: Chest Pain Stop: 04/21/19 16:04 Last Admin: 03/22/19 18:35 Dose: 0.4 mg Documented by: Ondansetron HCl (Zofran Odt) 4 mg PO DAILY PRN PRN Reason: nausea and vomiting Stop: 04/21/19 15:15 Ondansetron HCl (Zofran) 4 mg IV Q6H PRN PRN Reason: Nausea Stop: 04/21/19 16:04 Pantoprazole Sodium (Protonix) 40 mg PO [facility] Stop: 04/21/19 15:15 Last Admin: 03/24/19 08:02 Dose: 40 mg Documented by: Polyethylene Glycol (Miralax Powder Packet) 17 gm PO DAILY PRN PRN Reason: Constipation Stop: 04/21/19 16:04 Vitamin D (Vitamin D3) 1,000 units PO [facility] Stop: 04/21/19 15:15 Last Admin: 03/24/19 08:02 Dose: 1,000 units Documented by: Resident Activity Tracking Resident Involvement: Resident Care Provided Care Provided: Adult Hospital Medicine
[2019-03-24] MEDS: ASPIRIN 81 MG ECTAB PO SCH (20:59)
[2019-03-25] MEDS: LEVOTHYROXINE SODIUM 88 MCG TABLET PO SCH (06:13)
[2019-03-25] MEDS: APIXABAN 2.5 MG TAB PO SCH ×2 (08:17→21:30)
[2019-03-25] MEDS: LOSARTAN/HCTZ 50/12.5MG TAB PO SCH (08:17)
[2019-03-25] MEDS: FAMOTIDINE 20 MG TAB PO SCH ×2 (08:18→21:30)
[2019-03-25] MEDS: DULOXETINE HCL 60 MG CAP PO SCH (08:18)
[2019-03-25] MEDS: METOPROLOL TARTRATE 50 MG TAB PO SCH ×2 (08:18→21:30)
[2019-03-25] MEDS: AMLODIPINE BESYLATE 5 MG TAB PO SCH (08:18)
[2019-03-25 08:19] LABS: Hematocrit (blood only) 32.9 % (37-47); Hemoglobin 11.5 g/dL (12.0-16.0); Mean Corpuscular Volume 91.9 fL (80-100); Mean Platelet Volume 9.4 fL (7.4-10.4); Platelet Count 379 K/uL (130-400); RDW Coefficient of Variation 12.1 % (11.5-14.5); RDW Standard Deviation 41.2 fL (36.4-46.3); Red Blood Count 3.58 M/uL (4.2-5.4); White Blood Count 8.66 K/uL (4.8-10.8)
[2019-03-25] MEDS: CHOLECALCIFEROL 1,000 UNITS TAB PO SCH (08:19)
[2019-03-25] MEDS: ATORVASTATIN 20 MG TAB PO SCH (08:19)
[2019-03-25] MEDS: PANTOprazole 40 MG TAB PO SCH (08:19)
[2019-03-25] MEDS: MULTIVITAMIN TAB PO SCH (08:19)
[2019-03-25 08:20] LABS: Basophils # (auto) 0.03 K/uL (0-0.2); Basophils % (auto) 0.3 %; Eosinophils # (auto) 0.24 K/uL (0-0.5); Eosinophils % (auto) 2.8 %; Immature Granulocytes # (auto) 0.02 K/uL (0.00-0.02); Immature Granulocytes % (auto) 0.2 %; Lymphocytes # (auto) 1.45 K/uL (1.2-3.4); Lymphocytes % (auto) 16.7 %; Monocytes # (auto) 1.05 K/uL (0.11-0.59); Monocytes % (auto) 12.1 %; Neutrophils # (auto) 5.87 K/uL (1.4-6.5); Neutrophils % (auto) 67.9 %
[2019-03-25] MEDS: INSULIN ASPART 100 UNITS/ML 3 ML PEN SC SCH ×4 (08:20→21:31)
[2019-03-25 08:21] LABS: Albumin Level 3.2 gm/dl (3.4-5.0); BUN Creatinine Ratio 19.4 (10-20); Calcium 8.9 mg/dl (8.5-10.1); Creatinine Clr Calc Pharmacy 25.9 ml/min; Est GFR (African American) 36.6; Est GFR (Non-African American) 31.5
[2019-03-25] MEDS: ASCORBIC ACID 500 MG TAB PO SCH (08:21)
[2019-03-25 08:23] LABS: Albumin Globulin Ratio 0.7 (0.9-2); Bilirubin,Total 0.5 mg/dl (0.2-1); Globulin 4.3 gm/dl (2.5-4.0); Total Protein 7.5 gm/dl (6.4-8.2)
[2019-03-25] MEDS ORDERED: SODIUM CHLORIDE 0.9% 1000ML 500 ML IV STA (11:16)
--- NOTE | 2019-03-25 14:41 | Discharge Summary ---
Date of Service March 25, 2019 Admission HPI Per Admitting Provider 79 yo F w/ pMHx DMII with CKD, TIA, carotid stenosis s/p endarterectomy, CAD, HTN, HLD, chronic gastritis s/p hiatal hernia repair, LUZMA non-compliant with CPAP, who was referred to the ED by her PCP for symptomatic a.fib confirmed by EKG. Patient had gone to see her PCP with sternal chest pain rated 5/10. She describes the pain as sharp, intermittent, radiating to the neck, exacerbated by deep breaths, not affected by ambulation/exertion and not affected by position. She has also had intermittent episodes of heart racing for the past month, worse when lying down (although she denies PND) and associated with palpitations and occasionally feels a large thump in her chest and she said she feels like Im dying. Additionally she has had episodes of dizziness, most recently last week. She felt it coming on and was able to grab onto something before falling. She denies any feelings of the room spinning or syncopal episodes/LOC. She denies any change to vision or hearing. She ambulates independently at baseline, although states she sometimes feels wobbly. She denies change in exercise tolerance. She has a history of thyroidectomy for a benign goiter in 1963. Her dose of levothyroxine was recently changed and it was discovered she had been taking both doses, a total of 188mcgs for almost three months. The patient feels her palpitations and chest symptoms precede this. Of note she was admitted 03/19/19 with similar symptoms, treated for GERD and discharged following normal troponin x1 and ECG with NSR and no evidence of ACS with plans for outpatient stress test. A holter monitor in February 2018 showed NSR with frequent PACs and isolated PVCs. Historically she has taken taking rabeprazole, and was discharged with additional scheduled Pepcid. She is no longer taking this as she found it ineffective. Discharge Exam Constitutional WD/WN, vitals as above Eyes PERRL, conjunctivae normal, anicteric sclerae ENMT external ear and nose normal, oropharynx normal Respiratory normal respiratory effort, lungs clear to auscultation Cardiovascular irregularly irregular, tachy ~106 Gastrointestinal (Abdomen) normal bowel sounds, soft, nontender, no hepatosplenomegaly Skin no rashes, warm and dry Psychiatric A+Ox3, euthymic affect Discharge Data Allergies Allergy/AdvReac Type Severity Reaction Status Date / Time adhesive Allergy Mild red/blistered Verified 03/22/19 09:22 skin latex Allergy Mild CONTACT Verified 03/22/19 09:22 DERMATITIS carvedilol Allergy Unknown pt unsure, Verified 03/25/19 12:15 listed prior omeprazole AdvReac Intermediate HALLUCINATI Verified 03/22/19 09:22 ONS oxycodone AdvReac Intermediate itching Verified 03/22/19 09:22 phenobarbital AdvReac Intermediate HALLUCINATI Verified 03/22/19 09:22 ONS cephalexin AdvReac Mild DIARRHEA Verified 03/22/19 09:22 fentanyl AdvReac Mild altered Verified 03/25/19 12:15 mental status levofloxacin AdvReac Mild DIARRHEA Verified 03/22/19 09:22 meperidine AdvReac Mild HEADACHES Verified 03/22/19 09:22 metformin AdvReac Mild DIARRHEA Verified 03/25/19 12:15 Sulfa (Sulfonamide AdvReac Mild DIARRHEA Verified 03/22/19 09:22 Antibiotics) fluoxetine AdvReac Unknown Unknown Verified 03/25/19 12:16 Butter Oil AdvReac Mild DIARRHEA Uncoded 03/22/19 09:22 Consultations 03/22/19 13:07 ED Decision to Admit Stat 03/25/19 10:00 Consult Cardiology Routine Hospital Course (1) Atrial fibrillation by electrocardiogram: 79 yo F w/ pMHx DMII with CKD, TIA, carotid stenosis s/p endarterectomy, CAD, HTN, HLD, chronic gastritis s/p hiatal hernia repair, LUZMA non-compliant with CPAP, who was referred to the ED by her PCP for her symptoms of chest pain and new onset A. Fib confirmed by EKG. Of note, her dose of levothyroxine was recently changed and it was discovered she had been taking both doses, a total of 188mcgs for almost three months. Pt was admitted 03/19/19 with similar symptoms, treated for GERD and discharged following normal troponin x1 and ECG with NSR and no evidence of ACS with plans for outpatient stress test. A holter monitor in February 2018 showed NSR with frequent PACs and isolated PVCs. Historically she had taken taking rabeprazole, and was discharged with additional scheduled Pepcid. She is no longer took this as she found it ineffective. The following is the medical mangement during stay here: Chest discomfort -This was improved shortly after admission and was intermittent with GERD symptoms. Serial troponins were negative. Pt's symptoms were unlikely to be rel ated to afib, or CAD based on hx. We did not do stress test as inpatient but will have outpatient follow up for her atrial fibrillation with cardiology (April 07 w/ Dr. García). Atrial Fibrillation -This was noted on EKG in ED. This could have been iatrogenic hyperthyroid state or possibly more chronic. We changed home atenolol to metoprolol 125 mg BID with goal heart rate in the 80's or below. After making this change, pt's HR was ranging in 90-140s. Pt was initially on heparin drip given high [id number] score, but was transitioned to oral medication Apixaban 2.5 mg BID, which she will continue on d/c and will f/u with cardiology to determine length. Echo done 03/23 showed moderate concentric LVH, normal LV systolic fxn, LA moderately dilat ed. Dizziness -Pt was asymptomatic during stay here, and this was possibly secondary to atrial fibrillation causing hypotension Iatrogenic hyperthyroid secondary to intake of excess levothyroxine -Pt's TSH was 0.012 and Free T4 2.10 on admission. We continued levothyroxine 88mcgs at present. Pt will repeat TSH/T4 in 6 weeks. Anemia -Pt's Hgb on admission was 10.5, historically in 11-12s. No evidence per history (no NSAIDs, tobacco use, previous gastric ulcers, or hx of iron supplementation/infusion/blood transfusion) but concern for GI bleed given history of abnormal colonoscopy and family hx of colon cancer vs. anemia 2/2 CKD vs. blood loss from recent surgery. Patient remained hemodynamically stable during stay here. Iron studies were ordered, and showed an iron deficiency picture vs anemia of chronic inflammation. DM II with neuropathy -Last A1c 7.8 (11/2018) - Continue home glimepiride with glucose monitoring ac/hs - Continue home duloxetine CKD III -Creatinine at baseline ~1.5 -Will cont monitor w/ BMP GERD- s/p recent hiatal hernia repair - Continue pantoprazole and famotidine HLD, h/o TIA & carotid stenosis -Continue aspirin and atorvastatin HTN BP under good control since admission - Continue home atenolol, amlodipine, losartan-HCTZ LUZMA -Has history of diagnosis and sleep study but does not use CPAP at home - CPAP ordered and usage encouraged FEN/GI: Heart Healthy/DM2 Diet, no IVF DVT Prophylaxis: heparin gtt d/c, start eliquis today Full Code Discharge Plan Discharge Items Reason For Visit: CHEST PAIN Follow-up/Referrals: Mega García MD [Physician] - 04/07/19 10:40 am (Please, follow up at [facility] Office with Dr. García on April 07 at 11:00 am (arrive 10:40 am). *The office is located in [address] of [facility]. This is the big building next to this [facility]. If you need to change this appointment, call the office at [phone].) Jack Holloway MD [Primary Care Provider] - 03/28/19 11:30 am (Please, follow up at Dr. Holloway's office with his associate, Jennifer HOLT, on ThursdayMarch 28 at 11:30 am. *If you need to change this appointment, call the office at [phone].) Rolo Resendez MD [Resident] - 04/06/19 2:30 pm (Please, follow up with Dr. Rolo Resendez on ThursdayApril 06 at 2:30 pm. *The office is located in [address] of [facility]. This is the big building located next to this [facility]. If you need to change this appointment, call the office at [phone].) Prescriptions: No Action rabeprazole [Aciphex] 20 mg Tablet,Delayed Release (Dr/Ec) 20 mg PO QAM RF: 0 atorvastatin 20 mg Tablet 20 mg PO QAM RF: 0 atenolol 100 mg Tablet 100 mg PO QAM RF: 0 aspirin [Aspirin Low Dose] 81 mg Tablet,Delayed Release (Dr/Ec) 81 mg PO HS RF: 0 glimepiride 1 mg Tablet 2 mg PO BID RF: 0 amlodipine 10 mg Tablet 10 mg PO QAM RF: 0 multivitamin Capsule 1 cap PO QAM RF: 0 levothyroxine 88 mcg Capsule 88 mcg PO QAM RF: 0 ascorbic acid (vitamin C) [Vitamin C] 500 mg Tablet 500 mg PO QAM RF: 0 cholecalciferol (vitamin D3) [Vitamin D3] 1,000 unit Capsule 1,000 unit PO QAM RF: 0 losartan-hydrochlorothiazide 100-25 mg Tablet 1 tab PO DAILY RF: 0 famotidine 20 mg tablet 20 mg PO BID 14 Days Qty: 28 RF: 0 ondansetron 4 mg tablet,disintegrating 4 mg PO DAILY PRN (Reason: nausea and vomiting) 10 Days Qty: 10 RF: 0 Admission Data Admit Date/Time: 03/22/19 13:19 Attending Provider: Peggy Rodrigues Admit Provider: Peggy Rodrigues Primary Care Provider: Jack Holloway Other Providers: Peggy Rodrigues ; Mega García Service: Telemetry
--- NOTE | 2019-03-25 15:15 | Cardiology Consultation ---
Date of Consultation March 25, 2019 Assessment & Plan (1) Atrial fibrillation by electrocardiogram: 2. Atypical chest pain 3. Hyperthyroidism--in setting of taking too much levothyroxine 4. Type 2 DM 5. Carotid artery stenosis-- status post R carotid endarterectomy Patient admitted with new onset atrial fibrillation with RVR. She was symptomatic with exertional dyspnea, chest pain and palpitations. Hyperthyroidism is likely contributory and is being addressed by primary service. Her chest pain is atypical in nature, cardiac enzymes are negative, EKG without acute changes and echo demonstrates normal LV function and wall motion. No evidence of ACS. On exam she is well perfused without signs of heart failure. Recommend further rate control. Continue current dose of metoprolol tartrate. Start diltiazem 120 mg daily. Given elevated CHADS-VASc agree with anticoagulation with Eliquis. Recommend patient walk halls, if rate adequately controlled OK to discharge from cardiac standpoint with followup in our office. Supervising Physician Co-Signing Physician Notes Patient seen and examined, the foregoing was reviewed with Rosa and I agree with above. History of Present Illness Reason for Consultation: Atrial fibrillation with RVR Attending Physician: Peggy Rodrigues MD History of Present Illness Mrs. Breaux is an 79 year old female with a medical history significant for type 2 DM, hypertension, CKD, carotid stenosis status post right carotid endarterctomy (2011), hypothyroidism, essential tremor, recent hernia repair and newly diagnosed atrial fibrillation. She was admitted to [facility] on 03/20/19 with chest discomfort. Cardiac enzymes were negative and EKG had no acute changes. Chest pain was felt to be noncardiac and she was discharged home same day. On 03/22/19 she was seen at her PCP office with chest pain and shortness of breath. She was found to be in atrial fibrillation with RVR and was referred to the emergency department. She was noted to be hyperthyroid and had accidently doubled the dose of her levothyroxine. Cardiac enzymes have been negative and no acute changes on EKG. Her echo demonstrates normal LV function, wall motion and no significant valvular disease. Her usual atenolol was switched to metoprolol tartrate 125 mg b.i.d. but heart rate remains somewhat elevated. She has also been started on Eliquis 2.5 mg b.i.d. for anticoagulation. She reports a longstanding history of palpitations described as her heart racing and skipping beats. Palpitations have been more noticeable over the past several weeks. She underwent cardiac catheterization in 1999 reportedly without any evidence of coronary artery disease. Her shortness of breath has improved. She continues to have intermittent upper chest discomfort she describes as sharp. The pain occurs at random and is not related to exertion. It can last several hours in duration. She denies orthopnea, PND or edema. No lightheadedness, near syncope or syncope. No abnormal bleeding. Allergies Allergy/AdvReac Type Severity Reaction Status Date / Time adhesive Allergy Mild red/blistered Verified 03/22/19 09:22 skin latex Allergy Mild CONTACT Verified 03/22/19 09:22 DERMATITIS carvedilol Allergy Unknown pt unsure, Verified 03/25/19 12:15 listed prior omeprazole AdvReac Intermediate HALLUCINATI Verified 03/22/19 09:22 ONS oxycodone AdvReac Intermediate itching Verified 03/22/19 09:22 phenobarbital AdvReac Intermediate HALLUCINATI Verified 03/22/19 09:22 ONS cephalexin AdvReac Mild DIARRHEA Verified 03/22/19 09:22 fentanyl AdvReac Mild altered Verified 03/25/19 12:15 mental status levofloxacin AdvReac Mild DIARRHEA Verified 03/22/19 09:22 meperidine AdvReac Mild HEADACHES Verified 03/22/19 09:22 metformin AdvReac Mild DIARRHEA Verified 03/25/19 12:15 Sulfa (Sulfonamide AdvReac Mild DIARRHEA Verified 03/22/19 09:22 Antibiotics) fluoxetine AdvReac Unknown Unknown Verified 03/25/19 12:16 Butter Oil AdvReac Mild DIARRHEA Uncoded 03/22/19 09:22 Home Medications Home Medications Medication Instructions Recorded Confirmed Type aspirin [Aspirin Low Dose] 81 mg PO HS 07/21/18 03/22/19 History atenolol 100 mg PO QAM 07/21/18 03/22/19 History atorvastatin 20 mg PO QAM 07/21/18 03/22/19 History glimepiride 2 mg PO BID 07/21/18 03/22/19 History levothyroxine 88 mcg PO QAM 07/21/18 03/22/19 History multivitamin 1 cap PO QAM 07/21/18 03/22/19 History rabeprazole [Aciphex] 20 mg PO QAM 07/21/18 03/22/19 History ascorbic acid (vitamin C) [Vitamin 500 mg PO QAM 02/23/19 03/22/19 History C] cholecalciferol (vitamin D3) 1,000 unit PO QAM 02/23/19 03/22/19 History [Vitamin D3] losartan-hydrochlorothiazide 1 tab PO DAILY 03/01/19 03/22/19 History apixaban [Eliquis] 2.5 mg PO BID #30 tab 03/26/19 Rx diltiazem HCl 120 mg PO DAILY #30 cap 03/26/19 Rx metoprolol tartrate 125 mg PO BID #30 tab 03/26/19 Rx Patient History Medical History Chronic gastritis HLD (hyperlipidemia) LUZMA (obstructive sleep apnea) HTN (hypertension) CKD (chronic kidney disease) stage 3, GFR 30-59 ml/min Diabetes mellitus H/O: hysterectomy Hypothyroid 2/2 thyroidectomy H/O total thyroidectomy Bowel perforation (Resolved) Paroxysmal atrial fibrillation New onset atrial fibrillation (Inactive) Anxiety Benign essential tremor Chronic kidney disease, stage III (moderate) Depression Diabetes mellitus, type 2 NIDDM Diverticular disease HX DIVERTICULITIS PER RECORDS GERD (gastroesophageal reflux disease) Hiatal hernia History of blood transfusion POST-OP PER RECORDS History of palpitations Hx of intestinal obstruction 50 YEARS AGO PER RECORDS Hyperlipidemia Hypertension IBS (irritable bowel syndrome) Macular degeneration Obesity Osteoarthritis RLS (restless legs syndrome) Sleep apnea NO DEVICE Transient ischemic attack (TIA) 03/2018 Surgical History History of repair of hiatal hernia 02/2019 Previous section S/P carotid endarterectomy S/P lumpectomy of breast S/P cholecystectomy S/P appendectomy Family history of reaction to anesthesia SON-HARD TIME WAKING UP. History of appendectomy History of back surgery History of blepharoplasty History of bowel resection History of cardiac cath X2 TOTAL (10+ YEARS AGO)= NO STENTS History of section X3 History of cholecystectomy History of herniorrhaphy VENTRAL HERNIA History of inguinal hernia repair X3 (CHILD) History of lumpectomy of right breast "BENIGN History of repair of rotator cuff RIGHT X3, LEFT X 1 History of right-sided carotid endarterectomy 3+ YEARS AGO History of thyroidectomy History of total abdominal hysterectomy and bilateral salpingo-oophorectomy History of tubal ligation Family History Son Family history of reaction to anesthesia SLOW TO WAKE Brother Family history of diabetes mellitus Sister Family history of diabetes mellitus Mother Family history of diabetes mellitus Uncle Family hx of colon cancer X 3 Social History Preferred Language: Georgian Communication Ability: Effective Beliefs That Will Affect Care: None marital status: Current Living Situation: Spouse Feels Safe at Home: Yes Smoking Status: Never smoker Second Hand Exposure: No Hx Alcohol Use: No Hx Substance Use: No Review of Systems Review of Systems: All systems reviewed & are unremarkable except as noted in HPI & below Physical Exam Physical Exam: General: No acute distress, comfortable. HEENT: Head is normal. PERRLA. EOMI. Sclerae anicteric. Ears, nose and throat unremarkable. Mucous membranes moist. Neck: Normal carotid upstrokes, no bruits. No appreciable JVD. Lungs: Clear to auscultation bilaterally without rales, rhonchi or wheezes. Cardiac: Irregularly irregular. S1-S2 normal. No appreciable murmur, gallop or rub. Abdomen: Soft and nontender. Bowel sounds normal. No mass or organomegaly. No abdominal bruit. Extremities/vascular: Well perfused. No peripheral edema. Radial, DP and PT pulses 2+ bilaterally Skin: No rash or abnormal lesions. Normal turgor. Neurologic: Nonfocal Psychiatric: Affect appropriate. Alert and oriented. Results & Data Vital Signs (Past 12 Hours) Vital Signs Temp Pulse Resp BP BP Pulse Ox 03/25/19 11:30 36.7 C 110 H 18 110/74 95 03/25/19 07:05 36.2 C L 125 H 16 129/78 97 03/25/19 03:15 36.5 C 115 H 18 122/65 95 Laboratory Results Laboratory Results - last 24 hr 03/24/19 03/24/19 03/25/19 16:08 20:13 07:23 WBC RBC Hgb Hct MCV MCH MCHC RDW Std Deviation RDW Coeff of Michael Plt Count MPV Immature Gran % (Auto) Neut % (Auto) Lymph % (Auto) [place] % (Auto) Eos % (Auto) Baso % (Auto) Immature Gran # (Auto) Neut # (Auto) Lymph # (Auto) [place] # (Auto) Eos # (Auto) Baso # (Auto) Sodium Potassium Chloride Carbon Dioxide Anion Gap BUN Creatinine Est Cr Clr Drug Dosing Est GFR ( Amer) Est GFR (Non-Af Amer) BUN/Creatinine Ratio Glucose POC Glucose 149 H 153 H 202 H Calcium Total Bilirubin AST ALT Alkaline Phosphatase Total Protein Albumin Globulin Albumin/Globulin Ratio 03/25/19 03/25/19 03/25/19 07:28 07:28 11:20 WBC 8.66 RBC 3.58 L Hgb 11.5 L Hct 32.9 L MCV 91.9 MCH 32.1 MCHC 35.0 RDW Std Deviation 41.2 RDW Coeff of Michael 12.1 Plt Count 379 MPV 9.4 Immature Gran % (Auto) 0.2 Neut % (Auto) 67.9 Lymph % (Auto) 16.7 [place] % (Auto) 12.1 Eos % (Auto) 2.8 Baso % (Auto) 0.3 Immature Gran # (Auto) 0.02 Neut # (Auto) 5.87 Lymph # (Auto) 1.45 [place] # (Auto) 1.05 H Eos # (Auto) 0.24 Baso # (Auto) 0.03 Sodium 133 L Potassium 4.0 Chloride 99 Carbon Dioxide 24 Anion Gap 10.0 BUN 30 H Creatinine 1.54 H Est Cr Clr Drug Dosing 25.9 Est GFR ( Amer) 36.6 Est GFR (Non-Af Amer) 31.5 BUN/Creatinine Ratio 19.4 Glucose 178 H POC Glucose 200 H Calcium 8.9 Total Bilirubin 0.5 AST 12 L ALT 20 Alkaline Phosphatase 111 Total Protein 7.5 Albumin 3.2 L Globulin 4.3 H Albumin/Globulin Ratio 0.7 L Diagnostic Findings Echo --moderate LVH. Normal LV systolic function. EF 55-60%. Left atrium moderately dilated. Mild aortic valvular sclerosis without stenosis. ECG Additional Comments: EKGs reviewed-- afib Tele reviewed-- afib with ventricular rate in low 100s on average
[2019-03-25] MEDS: dilTIAZem ER 120 MG CAPCR PO SCH (15:50)
--- NOTE | 2019-03-25 16:48 | Family Medicine Progress Note ---
Date of Service March 25, 2019 Assessment & Plan (1) Atrial fibrillation by electrocardiogram: 79 yo F w/ pMHx DMII with CKD, TIA, carotid stenosis s/p endarterectomy, CAD, HTN, HLD, chronic gastritis s/p hiatal hernia repair, LUZMA non-compliant with CPAP, who was referred to the ED by her PCP for her symptoms of chest pain and new onset A. Fib. Atrial Fibrillation with RVR -Noted on EKG in ED, could be iatrogenic hyperthyroid state or possibly more chronic - Changed home atenolol to metoprolol 125 mg BID with goal heart rate in the 80's or below. Has been ranging in 90-110s - On heparin drip given high [id number] score will transition to oral medication today --> Apixaban 2.5 mg BID - Echo 03/23: moderate concentric LVH, normal LV systolic fxn, LA moderately dilated - Pt was still not rate controlled overnight and throughout day today, so per cards recs, started diltiazem 120 mg daily today. Will cont to monitor evening/overnight to see if improved with likely d/c in AM Dizziness - Currently asymptomatic, possibly secondary to atrial fibrillation causing hypotension Iatrogenic hyperthyroid secondary to intake of excess levothyroxine -TSH 0.012 and Free T4 2.10 on admission - Continue levothyroxine 88mcgs at present -Will Repeat TSH/T4 in 6 weeks Chest discomfort -Improved, intermittent with GERD symptoms - Serial troponins negative - Symptoms unlikely to be related to afib, or CAD based on hx - Will not get stress test as inpatient but have outpatient follow up for her atrial fibrillation with cardiology. Anemia -Hgb on admission of 10.5, historically in 11-12s. No evidence per history (no NSAIDs, tobacco use, previous gastric ulcers, or hx of iron supplementation/infusion/blood transfusion) but concern for GI bleed given history of abnormal colonoscopy and family hx of colon cancer vs. anemia 2/2 CKD vs. blood loss from recent surgery. Patient hemodynamically stable. - Iron studies ordered, show a iron deficiency picture vs anemia of chronic inflammation - Hgb 11.5 today, will cont to trend CBC DM II with neuropathy -Last A1c 7.8 (11/2018) - Continue home glimepiride with glucose monitoring ac/hs - Continue home duloxetine CKD III -Creatinine at baseline ~1.5 -Will cont monitor w/ BMP GERD- s/p recent hiatal hernia repair - Continue pantoprazole and famotidine HLD, h/o TIA & carotid stenosis -Continue aspirin and atorvastatin HTN BP under good control since admission - Continue home atenolol, amlodipine, losartan-HCTZ LUZMA -Has history of diagnosis and sleep study but does not use CPAP at home - CPAP ordered and usage encouraged FEN/GI: Heart Healthy/DM2 Diet, no IVF DVT Prophylaxis: Eliquis 2.5 BID Dispo: Tele, likely d/c tomorrow Full Code Supervising Physician Co-Signing Physician Notes Resident Physician Supervision Note: I independently interviewed and examined the patient and verified the lane history and physical, reviewed labs and image studies, discussed the case with the resident Dr. Joel and agree with the findings and care plan. Subjective 79 y/o F found in bed this AM in NAD. Reports no acute overnight events other than some sweating. Tele shows Afib in 110s-140s overnight. Pt denies any CP, SOB, lightheadedness at present. Tolerating PO intake. No issues voiding. No other acute concerns or complaints. Review of Systems Review of Systems: All systems reviewed & are unremarkable except as noted in HPI & below Physical Exam Constitutional: WD/WN, vitals as above Eyes: PERRL, conjunctivae normal, anicteric sclerae ENMT: external ear and nose normal, oropharynx normal Respiratory: normal respiratory effort, lungs clear to auscultation Cardiovascular: Irregularly irregular Gastrointestinal (Abdomen): normal bowel sounds, soft, nontender, no hepatosplenomegaly Skin: no rashes, warm and dry Psychiatric: A+Ox3, euthymic affect Results & Data Vital Signs (Past 12 Hours) Vital Signs Temp Pulse Resp BP BP Pulse Ox 03/25/19 15:43 36.7 C 122 H 16 100/62 94 03/25/19 11:30 36.7 C 110 H 18 110/74 95 03/25/19 07:05 36.2 C L 125 H 16 129/78 97 Laboratory Results Laboratory Results - last 24 hr 03/24/19 03/25/19 03/25/19 20:13 07:23 07:28 WBC 8.66 RBC 3.58 L Hgb 11.5 L Hct 32.9 L MCV 91.9 MCH 32.1 MCHC 35.0 RDW Std Deviation 41.2 RDW Coeff of Michael 12.1 Plt Count 379 MPV 9.4 Immature Gran % (Auto) 0.2 Neut % (Auto) 67.9 Lymph % (Auto) 16.7 [place] % (Auto) 12.1 Eos % (Auto) 2.8 Baso % (Auto) 0.3 Immature Gran # (Auto) 0.02 Neut # (Auto) 5.87 Lymph # (Auto) 1.45 [place] # (Auto) 1.05 H Eos # (Auto) 0.24 Baso # (Auto) 0.03 Sodium Potassium Chloride Carbon Dioxide Anion Gap BUN Creatinine Est Cr Clr Drug Dosing Est GFR ( Amer) Est GFR (Non-Af Amer) BUN/Creatinine Ratio Glucose POC Glucose 153 H 202 H Calcium Total Bilirubin AST ALT Alkaline Phosphatase Total Protein Albumin Globulin Albumin/Globulin Ratio 03/25/19 03/25/19 07:28 11:20 WBC RBC Hgb Hct MCV MCH MCHC RDW Std Deviation RDW Coeff of Michael Plt Count MPV Immature Gran % (Auto) Neut % (Auto) Lymph % (Auto) [place] % (Auto) Eos % (Auto) Baso % (Auto) Immature Gran # (Auto) Neut # (Auto) Lymph # (Auto) [place] # (Auto) Eos # (Auto) Baso # (Auto) Sodium 133 L Potassium 4.0 Chloride 99 Carbon Dioxide 24 Anion Gap 10.0 BUN 30 H Creatinine 1.54 H Est Cr Clr Drug Dosing 25.9 Est GFR ( Amer) 36.6 Est GFR (Non-Af Amer) 31.5 BUN/Creatinine Ratio 19.4 Glucose 178 H POC Glucose 200 H Calcium 8.9 Total Bilirubin 0.5 AST 12 L ALT 20 Alkaline Phosphatase 111 Total Protein 7.5 Albumin 3.2 L Globulin 4.3 H Albumin/Globulin Ratio 0.7 L Medications Administered Current Inpatient Medications Acetaminophen (Tylenol) 650 mg PO Q4H PRN PRN Reason: Pain or Fever Stop: 04/21/19 15:15 Last Admin: 03/23/19 18:54 Dose: 650 mg Documented by: Al Hydrox/Mg Hydrox/Simethicone (Maalox) 15 ml PO Q4H PRN PRN Reason: Dyspepsia Stop: 04/21/19 16:04 Apixaban (Eliquis) 2.5 mg PO BID DEVORAH Stop: 04/23/19 11:59 Last Admin: 03/25/19 08:17 Dose: 2.5 mg Documented by: Ascorbic Acid (Vitamin C) 500 mg PO QAM [facility] Stop: 04/21/19 15:15 Last Admin: 03/25/19 08:21 Dose: 500 mg Documented by: Aspirin (Ecotrin Ectab) 81 mg PO HS [facility] Stop: 04/21/19 20:59 Last Admin: 03/24/19 20:59 Dose: 81 mg Documented by: Atorvastatin Calcium (Lipitor) 20 mg PO QAM [facility] Stop: 04/21/19 15:15 Last Admin: 03/25/19 08:19 Dose: 20 mg Documented by: Dextrose (Dextrose 50%) 25 - 50 ml IV UD PRN; Protocol PRN Reason: Hypoglycemia Protocol Stop: 04/21/19 16:19 Diltiazem HCl (Tiazac) 120 mg PO [facility] Stop: 04/24/19 15:14 Last Admin: 03/25/19 15:50 Dose: 120 mg Documented by: Duloxetine [facility] ([facility]ymbalta) [facility] Stop: 04/22/19 08:59 Last Admin: 03/25/19 08:18 Dose: 60 mg Documented by: Famotidine (Pepcid) 20 mg PO BID [facility] Stop: 04/21/19 20:59 Last Admin: 03/25/19 08:18 Dose: 20 mg Documented by: Glimepiride (Amaryl) 2 mg PO BID [facility] Stop: 04/21/19 20:59 Last Admin: 03/22/19 20:54 Dose: Not Given Documented by: Glucagon (Glucagen) 1 mg SQ UD PRN; Protocol PRN Reason: Hypoglycemia Protocol Stop: 04/21/19 16:19 Glucose (Glucose 40%) 15 - 30 gm PO UD PRN; Protocol PRN Reason: Hypoglycemia Protocol Stop: 04/21/19 16:19 Glucose (Dex4 Glucose) 4 - 8 tabs PO UD PRN; Protocol PRN Reason: Hypoglycemia Protocol Stop: 04/21/19 16:19 HCTZ/Losartan Potassium (Hyzaar 50/12.5mg) 1 tab PO DAILY [facility] Stop: 04/21/19 15:15 Last Admin: 03/25/19 08:17 Dose: 1 tab Documented by: Insulin Aspart (Novolog Flexpen) 0 units SC ACHS [facility] Stop: 04/21/19 20:59 Last Admin: 03/25/19 12:12 Dose: 2 units Documented by: Levothyroxine Sodium (Synthroid) 88 mcg PO DAILYBB [facility] Stop: 04/22/19 06:29 Last Admin: 03/25/19 06:13 Dose: 88 mcg Documented by: Magnesium Hydroxide (Milk Of Magnesia) 30 ml PO Q12H PRN PRN Reason: Constipation Stop: 04/21/19 16:04 Metoprolol Tartrate (Lopressor) 5 mg IV Q4 PRN PRN Reason: Tachycardia greater than 110 Stop: 04/21/19 16:11 Last Admin: 03/22/19 18:10 Dose: 5 mg Documented by: Metoprolol Tartrate (Lopressor) 125 mg PO BID [facility] Stop: 04/23/19 08:59 Last Admin: 03/25/19 08:18 Dose: 125 mg Documented by: Miscellaneous (Carbohydrates For Hypoglycemia) 15 - 30 gm PO UD PRN PRN Reason: Hypoglycemia Treatment Stop: 04/21/19 16:19 Multivitamins (Multivitamin Tab) 1 tab PO [facility] Stop: 04/21/19 15:15 Last Admin: 03/25/19 08:19 Dose: 1 tab Documented by: Nitroglycerin (Nitrostat) 0.4 mg SL UD PRN PRN Reason: Chest Pain Stop: 04/21/19 16:04 Last Admin: 03/22/19 18:35 Dose: 0.4 mg Documented by: Ondansetron HCl (Zofran Odt) 4 mg PO DAILY PRN PRN Reason: nausea and vomiting Stop: 04/21/19 15:15 Ondansetron HCl (Zofran) 4 mg IV Q6H PRN PRN Reason: Nausea Stop: 04/21/19 16:04 Pantoprazole Sodium (Protonix) 40 mg PO [facility] Stop: 04/21/19 15:15 Last Admin: 03/25/19 08:19 Dose: 40 mg Documented by: Polyethylene Glycol (Miralax Powder Packet) 17 gm PO DAILY PRN PRN Reason: Constipation Stop: 04/21/19 16:04 Vitamin D (Vitamin D3) 1,000 units PO [facility] Stop: 04/21/19 15:15 Last Admin: 03/25/19 08:19 Dose: 1,000 units Documented by: Resident Activity Tracking Resident Involvement: Resident Care Provided Care Provided: Adult Hospital Medicine
[2019-03-25] MEDS: ASPIRIN 81 MG ECTAB PO SCH (21:30)
[2019-03-25] MEDS: ACETAMINOPHEN 325 MG TAB PO PRN (23:06)
[2019-03-26] MEDS: LEVOTHYROXINE SODIUM 88 MCG TABLET PO SCH (05:27)
[2019-03-26 06:14] LABS: Basophils # (auto) 0.02 K/uL (0-0.2); Basophils % (auto) 0.2 %; Eosinophils # (auto) 0.18 K/uL (0-0.5); Eosinophils % (auto) 2.2 %; Hematocrit (blood only) 28.9 % (37-47); Immature Granulocytes # (auto) 0.02 K/uL (0.00-0.02); Immature Granulocytes % (auto) 0.2 %; Lymphocytes # (auto) 1.62 K/uL (1.2-3.4); Lymphocytes % (auto) 20.2 %; Mean Corpuscular Hgb Conc 34.6 g/dL (32-36); Mean Corpuscular Volume 91.5 fL (80-100); Mean Platelet Volume 9.3 fL (7.4-10.4); Monocytes # (auto) 0.84 K/uL (0.11-0.59); Monocytes % (auto) 10.5 %; Neutrophils # (auto) 5.35 K/uL (1.4-6.5); Neutrophils % (auto) 66.7 %; Platelet Count 329 K/uL (130-400); RDW Standard Deviation 40.4 fL (36.4-46.3); Red Blood Count 3.16 M/uL (4.2-5.4); White Blood Count 8.03 K/uL (4.8-10.8)
[2019-03-26 06:47] LABS: Albumin Level 2.9 gm/dl (3.4-5.0); BUN Creatinine Ratio 21.6 (10-20); Calcium 8.4 mg/dl (8.5-10.1); Creatinine Clr Calc Pharmacy 24.7 ml/min; Est GFR (African American) 34.9; Est GFR (Non-African American) 30.1; Potassium 4.2 mmol/L (3.5-5.1)
[2019-03-26 06:50] LABS: Albumin Globulin Ratio 0.8 (0.9-2); Bilirubin,Total 0.4 mg/dl (0.2-1); Globulin 3.8 gm/dl (2.5-4.0); Total Protein 6.7 gm/dl (6.4-8.2)
[2019-03-26] MEDS: METOPROLOL TARTRATE 50 MG TAB PO SCH ×2 (08:13→20:06)
[2019-03-26] MEDS: APIXABAN 2.5 MG TAB PO SCH ×2 (08:13→20:06)
[2019-03-26] MEDS: FAMOTIDINE 20 MG TAB PO SCH ×2 (08:13→20:07)
[2019-03-26] MEDS: dilTIAZem ER 120 MG CAPCR PO SCH (08:15)
[2019-03-26] MEDS: MULTIVITAMIN TAB PO SCH (08:15)
[2019-03-26] MEDS: PANTOprazole 40 MG TAB PO SCH (08:16)
[2019-03-26] MEDS: LOSARTAN/HCTZ 50/12.5MG TAB PO SCH (08:16)
[2019-03-26] MEDS: DULOXETINE HCL 60 MG CAP PO SCH (08:16)
[2019-03-26] MEDS: ATORVASTATIN 20 MG TAB PO SCH (08:16)
[2019-03-26] MEDS: ASCORBIC ACID 500 MG TAB PO SCH (08:16)
[2019-03-26] MEDS: CHOLECALCIFEROL 1,000 UNITS TAB PO SCH (08:17)
[2019-03-26] MEDS: INSULIN ASPART 100 UNITS/ML 3 ML PEN SC SCH ×4 (08:17→20:11)
--- NOTE | 2019-03-26 09:30 | Discharge Summary ---
Date of Service March 26, 2019 Admission HPI Per Admitting Provider 79 yo F w/ pMHx DMII with CKD, TIA, carotid stenosis s/p endarterectomy, CAD, HTN, HLD, chronic gastritis s/p hiatal hernia repair, LUZMA non-compliant with CPAP, who was referred to the ED by her PCP for symptomatic a.fib confirmed by EKG. Patient had gone to see her PCP with sternal chest pain rated 5/10. She describes the pain as sharp, intermittent, radiating to the neck, exacerbated by deep breaths, not affected by ambulation/exertion and not affected by position. She has also had intermittent episodes of heart racing for the past month, worse when lying down (although she denies PND) and associated with palpitations and occasionally feels a large thump in her chest and she said she feels like Im dying. Additionally she has had episodes of dizziness, most recently last week. She felt it coming on and was able to grab onto something before falling. She denies any feelings of the room spinning or syncopal episodes/LOC. She denies any change to vision or hearing. She ambulates independently at baseline, although states she sometimes feels wobbly. She denies change in exercise tolerance. She has a history of thyroidectomy for a benign goiter in 1963. Her dose of levothyroxine was recently changed and it was discovered she had been taking both doses, a total of 188mcgs for almost three months. The patient feels her palpitations and chest symptoms precede this. Of note she was admitted 03/19/19 with similar symptoms, treated for GERD and discharged following normal troponin x1 and ECG with NSR and no evidence of ACS with plans for outpatient stress test. A holter monitor in February 2018 showed NSR with frequent PACs and isolated PVCs. Historically she has taken taking rabeprazole, and was discharged with additional scheduled Pepcid. She is no longer taking this as she found it ineffective Discharge Exam Constitutional WD/WN, vitals as above Eyes PERRL, conjunctivae normal, anicteric sclerae ENMT external ear and nose normal, oropharynx normal Respiratory normal respiratory effort, lungs clear to auscultation Cardiovascular irregularly irregular Gastrointestinal (Abdomen) normal bowel sounds, soft, nontender, no hepatosplenomegaly Skin no rashes, warm and dry Psychiatric A+Ox3, euthymic affect Discharge Data Allergies Allergy/AdvReac Type Severity Reaction Status Date / Time adhesive Allergy Mild red/blistered Verified 03/22/19 09:22 skin latex Allergy Mild CONTACT Verified 03/22/19 09:22 DERMATITIS carvedilol Allergy Unknown pt unsure, Verified 03/25/19 12:15 listed prior omeprazole AdvReac Intermediate HALLUCINATI Verified 03/22/19 09:22 ONS oxycodone AdvReac Intermediate itching Verified 03/22/19 09:22 phenobarbital AdvReac Intermediate HALLUCINATI Verified 03/22/19 09:22 ONS cephalexin AdvReac Mild DIARRHEA Verified 03/22/19 09:22 fentanyl AdvReac Mild altered Verified 03/25/19 12:15 mental status levofloxacin AdvReac Mild DIARRHEA Verified 03/22/19 09:22 meperidine AdvReac Mild HEADACHES Verified 03/22/19 09:22 metformin AdvReac Mild DIARRHEA Verified 03/25/19 12:15 Sulfa (Sulfonamide AdvReac Mild DIARRHEA Verified 03/22/19 09:22 Antibiotics) fluoxetine AdvReac Unknown Unknown Verified 03/25/19 12:16 Butter Oil AdvReac Mild DIARRHEA Uncoded 03/22/19 09:22 Consultations 03/22/19 13:07 ED Decision to Admit Stat 03/25/19 10:00 Consult Cardiology Routine Hospital Course (1) Atrial fibrillation by electrocardiogram: 79 yo F w/ pMHx DMII with CKD, TIA, carotid stenosis s/p endarterectomy, CAD, HTN, HLD, chronic gastritis s/p hiatal hernia repair, LUZMA non-compliant with CPAP, who was referred to the ED by her PCP for symptomatic a.fib confirmed by EKG. Of note her dose of levothyroxine was recently changed and it was discovered she had been taking both doses, a total of 188mcgs for almost three months. Pt was admitted 03/19/19 with similar symptoms, treated for GERD and discharged following normal troponin x1 and ECG with NSR and no evidence of ACS with plans for outpatient stress test. A holter monitor in February 2018 showed NSR with frequent PACs and isolated PVCs. Historically she had taken taking rabeprazole, and was discharged with additional scheduled Pepcid. She was no longer taking this as she found it ineffective. The following is the medical management during stay here: Chest discomfort -This was improved during stay here overall with intermittent sxs with GERD symptoms. Serial troponins were negative, and we thought symptoms were unlikely to be related to afib, or CAD based on hx. We did not pursue stress test as inpatient, but pt has outpatient follow up for her atrial fibrillation with cardiology on 04/07. Atrial Fibrillation -This was noted on EKG in ED. This could have been iatrogenic hyperthyroid state or possibly more chronic. Either way, we changed home atenolol to metoprolol 125 mg BID with goal heart rate in the 80's or below. After this change, pt's HR was ranging in 90-140s overnight. The next day we d/c pt's amlodipine 10mg daily and added diltiazem 120 mg daily, per Cardiology recs, and pt was observed overnight. HR was stable in 70's overnight after this change. Pt was on heparin drip given high [id number] score initially and was transitioned to oral medication Apixaban 2.5 mg BID. Echo 03/23 showed moderate concentric LVH, normal LV systolic fxn, LA moderately dilated. As above, pt will f/u with cards on 04/07, and any medication changes will be made at this time. Dizziness -Pt was asymptomatic throughout stay, and this was possibly secondary to atrial fibrillation causing hypotension Iatrogenic hyperthyroid secondary to intake of excess levothyroxine -Pt's TSH was 0.012 and Free T4 2.10 on admission. We continue levothyroxine 88mcgs, and pt will cont on this dose on d/c with recommendation to repeat TSH/T4 in 6 weeks. Anemia -Pt's Hgb on admission was 10.5, historically in 11-12s. There was no evidence per history (no NSAIDs, tobacco use, previous gastric ulcers, or hx of iron supplementation/infusion/blood transfusion) but concern for GI bleed given history of abnormal colonoscopy and family hx of colon cancer vs. anemia 2/2 CKD vs. blood loss from recent surgery. Patient was hemodynamically stable t hroughout stay here. We got Iron studies, and it showed a iron deficiency picture vs anemia of chronic inflammation. Hgb 10.0 on day of d/c. Pt was not sent home on any iron supplementation, may want to consider adding regimen on d/c. DM II with neuropathy -Pt's last A1c 7.8 in Nov 2018. We continue home glimepiride with glucose monitoring ac/hs along with home duloxetine. Pt's sugars were stable here. CKD III -Pt creatinine was at baseline ~1.5 during stay here GERD- s/p recent hiatal hernia repair -We continued pantoprazole and famotidine HLD, h/o TIA & carotid stenosis -We continued aspirin and atorvastatin HTN -Pt's BP was under good control since admission. We continue home atenolol, amlodipine, losartan-HCTZ. As above, we discontinued amlodipine the day before d/c. LUZMA - Pt has history of LUZMA and sleep study but does not use CPAP at home. Hopefully, this can be further addressed as an outpt. At time of d/c, pt had no other acute concerns or complaints. All f/u appt's and medication changes were extensively discussed with pt. Discharge Plan Discharge Items Patient Disposition: Home - Self-Care Reason For Visit: CHEST PAIN Discharge Diagnosis: A fib Discharge Goals: Improve disease control Activity: Per 'Additional Instructions' section Non-emergency contact: Primary Care Provider Call non-emergency contact if: you have any medication questions, your symptoms worsen and your pain is not controlled Follow-up/Referrals: Mega García MD [Physician] - 04/07/19 10:40 am (Please, follow up at [facility] Cardiology Office with Dr. García on April 07 at 11:00 am (arrive 10:40 am). *The office is located in [address] of [facility]. This is the big building next to this [facility]. If you need to change this appointment, call the office at [phone].) Jack Holloway MD [Primary Care Provider] - 03/28/19 11:30 am (Please, follow up at Dr. Holloway's office with his associate, Jennifer HOLT, on ThursdayMarch 28 at 11:30 am. *If you need to change this appointment, call the office at [phone].) Rolo Resendez MD [Resident] - 04/06/19 2:30 pm (Please, follow up with Dr. Rolo Resendez on ThursdayApril 06 at 2:30 pm. *The office is located in [address] of The [facility]. This is the big building located next to this hospital. If you need to change this appointment, call the office at [phone].) Diet: Carb Consistent or DM2 and Heart Healthy Addtl Provider Instructions: You were admitted for new onset A fib that was found after complaints of chest pain. Please follow the below instructions on discharge: -You will continue to take your new blood thinner medication Eliquis 2.5 mg twice a day -We added two new medications: Metoprolol 125 mg twice a day and diltiazem 120 mg daily. Continue to take these -We discontinued your amlodipine 10 mg. Do not take this on discharge -Only take your 88mcg levothyroxine medication. Do not combine with 100mcg tab! -You will follow up with Cardiology as an outpatient on 04/07. They will make any medication adjustments at this time -You have additional appointments with your PCPs Dr. Holloway (03/28) and Dipti (04/06) -If you notice similar symptoms that you had prior to your arrival to ED, then please come back in -If you notice that your HR is consistently high (>100), then contact the cardiology office or see your PCP sooner Prescriptions: New diltiazem HCl 120 mg capsule,extended release 24 hr 120 mg PO DAILY Qty: 30 RF: 0 metoprolol tartrate 100 mg tablet 125 mg PO BID Qty: 30 RF: 1 Eliquis 2.5 mg tablet 2.5 mg PO BID Qty: 30 RF: 1 Continued rabeprazole [Aciphex] 20 mg Tablet,Delayed Release (Dr/Ec) 20 mg PO QAM RF: 0 atorvastatin 20 mg Tablet 20 mg PO QAM RF: 0 atenolol 100 mg Tablet 100 mg PO QAM RF: 0 aspirin [Aspirin Low Dose] 81 mg Tablet,Delayed Release (Dr/Ec) 81 mg PO HS RF: 0 glimepiride 1 mg Tablet 2 mg PO BID RF: 0 multivitamin Capsule 1 cap PO QAM RF: 0 levothyroxine 88 mcg Capsule 88 mcg PO QAM RF: 0 ascorbic acid (vitamin C) [Vitamin C] 500 mg Tablet 500 mg PO QAM RF: 0 cholecalciferol (vitamin D3) [Vitamin D3] 1,000 unit Capsule 1,000 unit PO QAM RF: 0 losartan-hydrochlorothiazide 100-25 mg Tablet 1 tab PO DAILY RF: 0 famotidine 20 mg tablet 20 mg PO BID 14 Days Qty: 28 RF: 0 ondansetron 4 mg tablet,disintegrating 4 mg PO DAILY PRN (Reason: nausea and vomiting) 10 Days Qty: 10 RF: 0 Discontinued amlodipine 10 mg Tablet 10 mg PO QAM RF: 0 Stand-Alone Forms: [facility] Admission Data Admit Date/Time: 03/22/19 13:19 Attending Provider: Peggy Rodrigues Admit Provider: Peggy Rodrigues Primary Care Provider: Jack Holloway Other Providers: Peggy Rodrigues ; Mega García Service: Telemetry Other Interventions: Discharge Summary Assessment (RN) Last Done: 03/26/19 09:06 Resident Activity Tracking Resident Involvement: Resident Care Provided Care Provided: Adult Hospital Medicine
--- NOTE | 2019-03-26 14:10 | Family Medicine Progress Note ---
Date of Service March 26, 2019 Assessment & Plan (1) Atrial fibrillation by electrocardiogram: 79 yo F w/ PMHx DMII with CKD, TIA, carotid stenosis s/p endarterectomy, CAD, HTN, HLD, chronic gastritis s/p hiatal hernia repair, LUZMA non-compliant with CPAP, who was referred to the ED by her PCP for her symptoms of chest pain and new onset A. Fib. Atrial Fibrillation with RVR -Noted on EKG in ED, could be iatrogenic hyperthyroid state or possibly more chronic - Changed home atenolol to metoprolol 125 mg BID with goal heart rate in the 80's or below. Has been ranging in 80-110s today - On heparin drip given high [id number] score transitioned to oral medication --> Apixaban 2.5 mg BID - Echo 03/23: moderate concentric LVH, normal LV systolic fxn, LA moderately dilated - Pt was rate controlled overnight and but in AM was ranging in low 100s at times, so per cards recs, cont diltiazem 120 mg daily today and will hold in AM and reassess. Will cont to monitor evening/overnight to see if improved with likely d/c in AM Dizziness - Currently asymptomatic, possibly secondary to atrial fibrillation causing hypotension Iatrogenic hyperthyroid secondary to intake of excess levothyroxine -TSH 0.012 and Free T4 2.10 on admission - Continue levothyroxine 88mcgs at present -Will Repeat TSH/T4 in 6 weeks Chest discomfort -Improved, intermittent with GERD symptoms - Serial troponins negative - Symptoms unlikely to be related to afib, or CAD based on hx - Will not get stress test as inpatient but have outpatient follow up for her atrial fibrillation with cardiology. Anemia -Hgb on admission of 10.5, historically in 11-12s. No evidence per history (no NSAIDs, tobacco use, previous gastric ulcers, or hx of iron supplementation/infusion/blood transfusion) but concern for GI bleed given history of abnormal colonoscopy and family hx of colon cancer vs. anemia 2/2 CKD vs. blood loss from recent surgery. Patient hemodynamically stable. - Iron studies ordered, show a iron deficiency picture vs anemia of chronic inflammation - Hgb 11.5 today, will cont to trend CBC DM II with neuropathy -Last A1c 7.8 (11/2018) - Continue home glimepiride with glucose monitoring ac/hs - Continue home duloxetine CKD III -Creatinine at baseline ~1.5 -Will cont monitor w/ BMP GERD- s/p recent hiatal hernia repair - Continue pantoprazole and famotidine HLD, h/o TIA & carotid stenosis -Continue aspirin and atorvastatin HTN BP under good control since admission - Continue home atenolol, amlodipine, losartan-HCTZ LUZMA -Has history of diagnosis and sleep study but does not use CPAP at home - CPAP ordered and usage encouraged FEN/GI: Heart Healthy/DM2 Diet, no IVF DVT Prophylaxis: Eliquis 2.5 BID Dispo: Tele, likely d/c tomorrow Full Code Supervising Physician Co-Signing Physician Notes Resident Physician Supervision Note: I independently interviewed and examined the patient and verified the lane history and physical, reviewed labs and image studies, discussed the case with the resident Dr. Joel and agree with the findings and care plan. Subjective 79 y/o F found in bed this AM in NAD. Reports no acute overnight events. Tele shows Afib in 70s overnight. However in AM has been ranging low 100s. Pt denies any CP, SOB, lightheadedness at present. Tolerating PO intake. No issues voiding. No other acute concerns or complaints. Review of Systems Review of Systems: All systems reviewed & are unremarkable except as noted in HPI & below Physical Exam Constitutional: WD/WN, vitals as above Eyes: PERRL, conjunctivae normal, anicteric sclerae ENMT: external ear and nose normal, oropharynx normal Respiratory: normal respiratory effort, lungs clear to auscultation Cardiovascular: irregularly irregular Gastrointestinal (Abdomen): normal bowel sounds, soft, nontender, no hepatosplenomegaly Skin: no rashes, warm and dry Psychiatric: A+Ox3, euthymic affect Results & Data Vital Signs (Past 12 Hours) Vital Signs Temp Pulse Pulse Resp BP BP Pulse Ox 03/26/19 11:34 36.5 C 106 H 16 134/81 97 03/26/19 09:06 36.5 C 111 H 105 H 16 112/68 119/61 98 03/26/19 07:17 36.5 C 105 H 16 119/61 98 03/26/19 03:33 36.6 C 73 17 112/68 100 Laboratory Results Laboratory Results - last 24 hr 03/25/19 03/25/19 03/26/19 16:14 20:15 05:42 WBC 8.03 RBC 3.16 L Hgb 10.0 L Hct 28.9 L MCV 91.5 MCH 31.6 MCHC 34.6 RDW Std Deviation 40.4 RDW Coeff of Michael 12.0 Plt Count 329 MPV 9.3 Immature Gran % (Auto) 0.2 Neut % (Auto) 66.7 Lymph % (Auto) 20.2 Ness % (Auto) 10.5 Eos % (Auto) 2.2 Baso % (Auto) 0.2 Immature Gran # (Auto) 0.02 Neut # (Auto) 5.35 Lymph # (Auto) 1.62 Ness # (Auto) 0.84 H Eos # (Auto) 0.18 Baso # (Auto) 0.02 Sodium Potassium Chloride Carbon Dioxide Anion Gap BUN Creatinine Est Cr Clr Drug Dosing Est GFR ( Amer) Est GFR (Non-Af Amer) BUN/Creatinine Ratio Glucose POC Glucose 162 H 178 H Calcium Total Bilirubin AST ALT Alkaline Phosphatase Total Protein Albumin Globulin Albumin/Globulin Ratio 03/26/19 03/26/19 05:42 11:07 WBC RBC Hgb Hct MCV MCH MCHC RDW Std Deviation RDW Coeff of Michael Plt Count MPV Immature Gran % (Auto) Neut % (Auto) Lymph % (Auto) Ness % (Auto) Eos % (Auto) Baso % (Auto) Immature Gran # (Auto) Neut # (Auto) Lymph # (Auto) Ness # (Auto) Eos # (Auto) Baso # (Auto) Sodium 136 Potassium 4.2 Chloride 102 Carbon Dioxide 27 Anion Gap 7.0 BUN 35 H Creatinine 1.60 H Est Cr Clr Drug Dosing 24.7 Est GFR ( Amer) 34.9 Est GFR (Non-Af Amer) 30.1 BUN/Creatinine Ratio 21.6 H Glucose 141 H POC Glucose 138 H Calcium 8.4 L Total Bilirubin 0.4 AST 13 L ALT 17 Alkaline Phosphatase 95 Total Protein 6.7 Albumin 2.9 L Globulin 3.8 Albumin/Globulin Ratio 0.8 L Medications Administered Current Inpatient Medications Acetaminophen (Tylenol) 650 mg PO Q4H PRN PRN Reason: Pain or Fever Stop: 04/21/19 15:15 Last Admin: 03/25/19 23:06 Dose: 650 mg Documented by: Al Hydrox/Mg Hydrox/Simethicone (Maalox) 15 ml PO Q4H PRN PRN Reason: Dyspepsia Stop: 04/21/19 16:04 Apixaban (Eliquis) 2.5 mg PO BID [facility] Stop: 04/23/19 11:59 Last Admin: 03/26/19 08:13 Dose: 2.5 mg Documented by: Ascorbic Acid (Vitamin C) 500 mg PO QAM [facility] Stop: 04/21/19 15:15 Last Admin: 03/26/19 08:16 Dose: 500 mg Documented by: Aspirin (Ecotrin Ectab) 81 mg PO HS [facility] Stop: 04/21/19 20:59 Last Admin: 03/25/19 21:30 Dose: 81 mg Documented by: Atorvastatin Calcium [facility]) [facility] Stop: 04/21/19 15:15 Last Admin: 03/26/19 08:16 Dose: 20 mg Documented by: Dextrose (Dextrose 50%) 25 - 50 ml IV UD PRN; Protocol PRN Reason: Hypoglycemia Protocol Stop: 04/21/19 16:19 Diltiazem HCl (Tiazac) 120 mg PO [facility] Stop: 04/24/19 15:14 Last Admin: 03/26/19 08:15 Dose: 120 mg Documented by: Duloxetine HCl (Cymbalta) 60 mg PO [facility] Stop: 04/22/19 08:59 Last Admin: 03/26/19 08:16 Dose: 60 mg Documented by: Famotidine (Pepcid) 20 mg PO BID [facility] Stop: 04/21/19 20:59 Last Admin: 03/26/19 08:13 Dose: 20 mg Documented by: Glimepiride (Amaryl) 2 mg PO BID [facility] Stop: 04/21/19 20:59 Last Admin: 03/22/19 20:54 Dose: Not Given Documented by: Glucagon (Glucagen) 1 mg SQ UD PRN; Protocol PRN Reason: Hypoglycemia Protocol Stop: 04/21/19 16:19 Glucose (Glucose 40%) 15 - 30 gm PO UD PRN; Protocol PRN Reason: Hypoglycemia Protocol Stop: 04/21/19 16:19 Glucose (Dex4 Glucose) 4 - 8 tabs PO UD PRN; Protocol PRN Reason: Hypoglycemia Protocol Stop: 04/21/19 16:19 HCTZ/Losartan Potassium (Hyzaar 50/12.5mg) 1 tab PO DAILY [facility] Stop: 04/21/19 15:15 Last Admin: 03/26/19 08:16 Dose: 1 tab Documented by: Insulin Aspart (Novolog Flexpen) 0 units SC ACHS [facility] Stop: 04/21/19 20:59 Last Admin: 03/26/19 12:02 Dose: 2 units Documented by: Levothyroxine Sodium (Synthroid) 88 mcg PO DAILYBB [facility] Stop: 04/22/19 06:29 Last Admin: 03/26/19 05:27 Dose: 88 mcg Documented by: Magnesium Hydroxide (Milk Of Magnesia) 30 ml PO Q12H PRN PRN Reason: Constipation Stop: 04/21/19 16:04 Metoprolol Tartrate (Lopressor) 5 mg IV Q4 PRN PRN Reason: Tachycardia greater than 110 Stop: 04/21/19 16:11 Last Admin: 03/22/19 18:10 Dose: 5 mg Documented by: Metoprolol Tartrate (Lopressor) 125 mg PO BID [facility] Stop: 04/23/19 08:59 Last Admin: 03/26/19 08:13 Dose: 125 mg Documented by: Miscellaneous (Carbohydrates For Hypoglycemia) 15 - 30 gm PO UD PRN PRN Reason: Hypoglycemia Treatment Stop: 04/21/19 16:19 Multivitamins (Multivitamin Tab) 1 tab PO [facility] Stop: 04/21/19 15:15 Last Admin: 03/26/19 08:15 Dose: 1 tab Documented by: Nitroglycerin (Nitrostat) 0.4 mg SL UD PRN PRN Reason: Chest Pain Stop: 04/21/19 16:04 Last Admin: 03/22/19 18:35 Dose: 0.4 mg Documented by: Ondansetron HCl (Zofran Odt) 4 mg PO DAILY PRN PRN Reason: nausea and vomiting Stop: 04/21/19 15:15 Ondansetron HCl (Zofran) 4 mg IV Q6H PRN PRN Reason: Nausea Stop: 04/21/19 16:04 Pantoprazole Sodium (Protonix) 40 mg PO QAM [facility] Stop: 04/21/19 15:15 Last Admin: 03/26/19 08:16 Dose: 40 mg Documented by: Polyethylene Glycol (Miralax Powder Packet) 17 gm PO DAILY PRN PRN Reason: Constipation Stop: 04/21/19 16:04 Vitamin D (Vitamin D3) 1,000 units PO QAM [facility] Stop: 04/21/19 15:15 Last Admin: 03/26/19 08:17 Dose: 1,000 units Documented by: Resident Activity Tracking Resident Involvement: Resident Care Provided Care Provided: Adult Hospital Medicine
[2019-03-26] MEDS: ASPIRIN 81 MG ECTAB PO SCH (20:07)
[2019-03-27] MEDS: LEVOTHYROXINE SODIUM 88 MCG TABLET PO SCH (05:53)
[2019-03-27 06:48] LABS: Basophils # (auto) 0.02 K/uL (0-0.2); Basophils % (auto) 0.2 %; Eosinophils % (auto) 2.5 %; Hematocrit (blood only) 30.3 % (37-47); Hemoglobin 10.3 g/dL (12.0-16.0); Immature Granulocytes # (auto) 0.02 K/uL (0.00-0.02); Immature Granulocytes % (auto) 0.2 %; Lymphocytes % (auto) 14.8 %; Mean Corpuscular Volume 92.1 fL (80-100); Mean Platelet Volume 9.4 fL (7.4-10.4); Monocytes # (auto) 0.79 K/uL (0.11-0.59); Monocytes % (auto) 9.8 %; Neutrophils # (auto) 5.87 K/uL (1.4-6.5); Neutrophils % (auto) 72.5 %; Platelet Count 364 K/uL (130-400); RDW Coefficient of Variation 12.1 % (11.5-14.5); RDW Standard Deviation 41.6 fL (36.4-46.3); Red Blood Count 3.29 M/uL (4.2-5.4)
[2019-03-27 07:18] LABS: Albumin Level 2.9 gm/dl (3.4-5.0); BUN Creatinine Ratio 23.4 (10-20); Calcium 8.7 mg/dl (8.5-10.1); Est GFR (Non-African American) 33.6; Potassium 4.3 mmol/L (3.5-5.1)
[2019-03-27 07:20] LABS: Albumin Globulin Ratio 0.8 (0.9-2); Bilirubin,Total 0.3 mg/dl (0.2-1); Globulin 3.8 gm/dl (2.5-4.0); Total Protein 6.7 gm/dl (6.4-8.2)
[2019-03-27] MEDS: MULTIVITAMIN TAB PO SCH (08:16)
[2019-03-27] MEDS: PANTOprazole 40 MG TAB PO SCH (08:17)
[2019-03-27] MEDS: ATORVASTATIN 20 MG TAB PO SCH (08:17)
[2019-03-27] MEDS: CHOLECALCIFEROL 1,000 UNITS TAB PO SCH (08:17)
[2019-03-27] MEDS: METOPROLOL TARTRATE 50 MG TAB PO SCH (08:18)
[2019-03-27] MEDS: DULOXETINE HCL 60 MG CAP PO SCH (08:18)
[2019-03-27] MEDS: FAMOTIDINE 20 MG TAB PO SCH (08:21)
[2019-03-27] MEDS: ASCORBIC ACID 500 MG TAB PO SCH (08:22)
[2019-03-27] MEDS: APIXABAN 2.5 MG TAB PO SCH (08:22)
[2019-03-27] MEDS: INSULIN ASPART 100 UNITS/ML 3 ML PEN SC SCH ×2 (08:23→11:50)
[2019-03-27] MEDS: LOSARTAN/HCTZ 50/12.5MG TAB PO SCH (08:23)
[2019-03-27] MEDS: dilTIAZem ER 120 MG CAPCR PO SCH (11:47)
--- NOTE | 2019-03-27 12:13 | Family Medicine Progress Note ---
Date of Service March 27, 2019 Assessment & Plan (1) Atrial fibrillation by electrocardiogram: 79 yo F w/ PMHx DMII with CKD, TIA, carotid stenosis s/p endarterectomy, CAD, HTN, HLD, chronic gastritis s/p hiatal hernia repair, LUZMA non-compliant with CPAP, who was referred to the ED by her PCP for her symptoms of chest pain and new onset A. Fib. Now trying to manage rate control. Atrial Fibrillation with RVR -Noted on EKG in ED, could be iatrogenic hyperthyroid state or possibly more chronic - Changed home atenolol to metoprolol 125 mg BID with goal heart rate in the 80's or below. Has been ranging in 110-110s today - On heparin drip given high [id number] score transitioned to oral medication --> Apixaban 2.5 mg BID - Echo 03/23: moderate concentric LVH, normal LV systolic fxn, LA moderately dilated - Pt was not rate controlled overnight and into AM, so per cards recs, cont diltiazem 120 mg daily today. Plan was to hold it this AM given low HR 50-70 overnight the night before but pt was not rate controlled during daytime. Will cont to monitor evening/overnight to see if improved with likely d/c in AM Dizziness - Currently asymptomatic, possibly secondary to atrial fibrillation causing hypotension Iatrogenic hyperthyroid secondary to intake of excess levothyroxine -TSH 0.012 and Free T4 2.10 on admission - Continue levothyroxine 88mcgs at present -Will Repeat TSH/T4 in 6 weeks Chest discomfort -Improved, intermittent with GERD symptoms - Serial troponins negative - Symptoms unlikely to be related to afib, or CAD based on hx - Will not get stress test as inpatient but have outpatient follow up for her atrial fibrillation with cardiology. Anemia -Hgb on admission of 10.5, historically in 11-12s. No evidence per history (no NSAIDs, tobacco use, previous gastric ulcers, or hx of iron supplementation/infusion/blood transfusion) but concern for GI bleed given histo ry of abnormal colonoscopy and family hx of colon cancer vs. anemia 2/2 CKD vs. blood loss from recent surgery. Patient hemodynamically stable. - Iron studies ordered, show a iron deficiency picture vs anemia of chronic inflammation - Hgb 11.5 today, will cont to trend CBC DM II with neuropathy -Last A1c 7.8 (11/2018) - Continue home glimepiride with glucose monitoring ac/hs - Continue home duloxetine CKD III -Creatinine at baseline ~1.5 -Will cont monitor w/ BMP GERD- s/p recent hiatal hernia repair - Continue pantoprazole and famotidine HLD, h/o TIA & carotid stenosis -Continue aspirin and atorvastatin HTN BP under good control since admission - Continue home atenolol, amlodipine, losartan-HCTZ LUZMA -Has history of diagnosis and sleep study but does not use CPAP at home - CPAP ordered and usage encouraged FEN/GI: Heart Healthy/DM2 Diet, no IVF DVT Prophylaxis: Eliquis 2.5 BID Dispo: Tele, likely d/c tomorrow Full Code Subjective 79 y/o F found in bed this AM in NAD. Reports no acute overnight events. Tele shows Afib in 100-110s overnight. This AM has ranged the same. Pt denies any CP, SOB, lightheadedness at present. Tolerating PO intake. No issues voiding. No other acute concerns or complaints. Review of Systems Review of Systems: All systems reviewed & are unremarkable except as noted in HPI & below Physical Exam Constitutional: WD/WN, vitals as above Eyes: PERRL, conjunctivae normal, anicteric sclerae ENMT: external ear and nose normal, oropharynx normal Respiratory: normal respiratory effort, lungs clear to auscultation Cardiovascular: irregularly irregular Gastrointestinal (Abdomen): normal bowel sounds, soft, nontender, no hepatosplenomegaly Skin: no rashes, warm and dry Psychiatric: A+Ox3, euthymic affect Results & Data Vital Signs (Past 12 Hours) Vital Signs Temp Pulse Resp BP Pulse Ox 03/27/19 11:18 36.7 C 103 H 18 101/63 96 03/27/19 07:12 36.8 C 110 H 20 122/80 96 03/27/19 04:13 36.6 C 107 H 19 135/75 92 Laboratory Results Laboratory Results - last 24 hr 03/26/19 03/27/19 03/27/19 20:11 05:47 05:47 WBC 8.10 RBC 3.29 L Hgb 10.3 L Hct 30.3 L MCV 92.1 MCH 31.3 MCHC 34.0 RDW Std Deviation 41.6 RDW Coeff of Michael 12.1 Plt Count 364 MPV 9.4 Immature Gran % (Auto) 0.2 Neut % (Auto) 72.5 Lymph % (Auto) 14.8 [place] % (Auto) 9.8 Eos % (Auto) 2.5 Baso % (Auto) 0.2 Immature Gran # (Auto) 0.02 Neut # (Auto) 5.87 Lymph # (Auto) 1.20 [place] # (Auto) 0.79 H Eos # (Auto) 0.20 Baso # (Auto) 0.02 Sodium 135 L Potassium 4.3 Chloride 104 Carbon Dioxide 22 Anion Gap 10.0 BUN 34 H Creatinine 1.46 H Est Cr Clr Drug Dosing 27.0 Est GFR ( Amer) 39.0 Est GFR (Non-Af Amer) 33.6 BUN/Creatinine Ratio 23.4 H Glucose 142 H POC Glucose 138 H Calcium 8.7 Total Bilirubin 0.3 AST 14 L ALT 17 Alkaline Phosphatase 95 Total Protein 6.7 Albumin 2.9 L Globulin 3.8 Albumin/Globulin Ratio 0.8 L 03/27/19 03/27/19 07:15 11:19 WBC RBC Hgb Hct MCV MCH MCHC RDW Std Deviation RDW Coeff of Michael Plt Count MPV Immature Gran % (Auto) Neut % (Auto) Lymph % (Auto) [place] % (Auto) Eos % (Auto) Baso % (Auto) Immature Gran # (Auto) Neut # (Auto) Lymph # (Auto) [place] # (Auto) Eos # (Auto) Baso # (Auto) Sodium Potassium Chloride Carbon Dioxide Anion Gap BUN Creatinine Est Cr Clr Drug Dosing Est GFR ( Amer) Est GFR (Non-Af Amer) BUN/Creatinine Ratio Glucose POC Glucose 174 H 160 H Calcium Total Bilirubin AST ALT Alkaline Phosphatase Total Protein Albumin Globulin Albumin/Globulin Ratio Medications Administered Current Inpatient Medications Acetaminophen (Tylenol) 650 mg PO Q4H PRN PRN Reason: Pain or Fever Stop: 04/21/19 15:15 Last Admin: 03/25/19 23:06 Dose: 650 mg Documented by: Al Hydrox/Mg Hydrox/Simethicone (Maalox) 15 ml PO Q4H PRN PRN Reason: Dyspepsia Stop: 04/21/19 16:04 Apixaban (Eliquis) 2.5 mg PO BID DEVORAH Stop: 04/23/19 11:59 Last Admin: 03/27/19 08:22 Dose: 2.5 mg Documented by: Ascorbic Acid (Vitamin C) 500 mg PO QAM [facility] Stop: 04/21/19 15:15 Last Admin: 03/27/19 08:22 Dose: 500 mg Documented by: Aspirin (Ecotrin Ectab) 81 mg PO HS [facility] Stop: 04/21/19 20:59 Last Admin: 03/26/19 20:07 Dose: 81 mg Documented by: Atorvastatin Calcium (Lipitor) 20 mg PO QAM [facility] Stop: 04/21/19 15:15 Last Admin: 03/27/19 08:17 Dose: 20 mg Documented by: Dextrose (Dextrose 50%) 25 - 50 ml IV UD PRN; Protocol PRN Reason: Hypoglycemia Protocol Stop: 04/21/19 16:19 Diltiazem HCl (Tiazac) 120 mg PO [facility] Stop: 04/24/19 15:14 Last Admin: 03/27/19 11:47 Dose: 120 mg Documented by: Duloxetine HCl (Cymbalta) 60 mg PO [facility] Stop: 04/22/19 08:59 Last Admin: 03/27/19 08:18 Dose: 60 mg Documented by: Famotidine (Pepcid) 20 mg PO BID [facility] Stop: 04/21/19 20:59 Last Admin: 03/27/19 08:21 Dose: 20 mg Documented by: Glimepiride (Amaryl) 2 mg PO BID [facility] Stop: 04/21/19 20:59 Last Admin: 03/22/19 20:54 Dose: Not Given Documented by: Glucagon (Glucagen) 1 mg SQ UD PRN; Protocol PRN Reason: Hypoglycemia Protocol Stop: 04/21/19 16:19 Glucose (Glucose 40%) 15 - 30 gm PO UD PRN; Protocol PRN Reason: Hypoglycemia Protocol Stop: 04/21/19 16:19 Glucose (Dex4 Glucose) 4 - 8 tabs PO UD PRN; Protocol PRN Reason: Hypoglycemia Protocol Stop: 04/21/19 16:19 HCTZ/Losartan Potassium (Hyzaar 50/12.5mg) 1 tab PO DAILY [facility] Stop: 04/21/19 15:15 Last Admin: 03/27/19 08:23 Dose: 1 tab Documented by: Insulin Aspart (Novolog Flexpen) [address] [facility] Stop: 04/21/19 20:59 Last Admin: 03/27/19 11:50 Dose: 4 units Documented by: Levothyroxine Sodium (Synthroid) 88 mcg PO DAILYBB [facility] Stop: 04/22/19 06:29 Last Admin: 03/27/19 05:53 Dose: 88 mcg Documented by: Magnesium Hydroxide (Milk Of Magnesia) 30 ml PO Q12H PRN PRN Reason: Constipation Stop: 04/21/19 16:04 Metoprolol Tartrate (Lopressor) 5 mg IV Q4 PRN PRN Reason: Tachycardia greater than 110 Stop: 04/21/19 16:11 Last Admin: 03/22/19 18:10 Dose: 5 mg Documented by: Metoprolol Tartrate (Lopressor) 125 mg PO BID [facility] Stop: 04/23/19 08:59 Last Admin: 03/27/19 08:18 Dose: 125 mg Documented by: Miscellaneous (Carbohydrates For Hypoglycemia) 15 - 30 gm PO UD PRN PRN Reason: Hypoglycemia Treatment Stop: 04/21/19 16:19 Multivitamins (Multivitamin Tab) 1 tab PO [facility] Stop: 04/21/19 15:15 Last Admin: 03/27/19 08:16 Dose: 1 tab Documented by: Nitroglycerin (Nitrostat) 0.4 mg SL UD PRN PRN Reason: Chest Pain Stop: 04/21/19 16:04 Last Admin: 03/22/19 18:35 Dose: 0.4 mg Documented by: Ondansetron HCl (Zofran Odt) 4 mg PO DAILY PRN PRN Reason: nausea and vomiting Stop: 04/21/19 15:15 Ondansetron HCl (Zofran) 4 mg IV Q6H PRN PRN Reason: Nausea Stop: 04/21/19 16:04 Pantoprazole Sodium (Protonix) 40 mg PO [facility] Stop: 04/21/19 15:15 Last Admin: 03/27/19 08:17 Dose: 40 mg Documented by: Polyethylene Glycol (Miralax Powder Packet) 17 gm PO DAILY PRN PRN Reason: Constipation Stop: 04/21/19 16:04 Vitamin D (Vitamin D3) 1,000 units PO [facility] Stop: 04/21/19 15:15 Last Admin: 03/27/19 08:17 Dose: 1,000 units Documented by:
--- NOTE | 2019-03-27 13:02 | Discharge Summary ---
Date of Service March 27, 2019 Admission HPI Per Admitting Provider 79 yo F w/ pMHx DMII with CKD, TIA, carotid stenosis s/p endarterectomy, CAD, HTN, HLD, chronic gastritis s/p hiatal hernia repair, LUZMA non-compliant with CPAP, who was referred to the ED by her PCP for symptomatic a.fib confirmed by EKG. Patient had gone to see her PCP with sternal chest pain rated 5/10. She describes the pain as sharp, intermittent, radiating to the neck, exacerbated by deep breaths, not affected by ambulation/exertion and not affected by position. She has also had intermittent episodes of heart racing for the past month, worse when lying down (although she denies PND) and associated with palpitations and occasionally feels a large thump in her chest and she said she feels like Im dying. Additionally she has had episodes of dizziness, most recently last week. She felt it coming on and was able to grab onto something before falling. She denies any feelings of the room spinning or syncopal episodes/LOC. She denies any change to vision or hearing. She ambulates independently at baseline, although states she sometimes feels wobbly. She denies change in exercise tolerance. She has a history of thyroidectomy for a benign goiter in 1963. Her dose of levothyroxine was recently changed and it was discovered she had been taking both doses, a total of 188mcgs for almost three months. The patient feels her palpitations and chest symptoms precede this. Of note she was admitted 03/19/19 with similar symptoms, treated for GERD and discharged following normal troponin x1 and ECG with NSR and no evidence of ACS with plans for outpatient stress test. A holter monitor in February 2018 showed NSR with frequent PACs and isolated PVCs. Historically she has taken taking rabeprazole, and was discharged with additional scheduled Pepcid. She is no longer taking this as she found it ineffective. Principal Diagnosis a fib Discharge Exam Constitutional WD/WN, vitals as above Eyes PERRL, conjunctivae normal, anicteric sclerae ENMT external ear and nose normal, oropharynx normal Respiratory normal respiratory effort, lungs clear to auscultation Cardiovascular irregularly irregular Gastrointestinal (Abdomen) normal bowel sounds, soft, nontender, no hepatosplenomegaly Skin no rashes, warm and dry Psychiatric A+Ox3, euthymic affect Discharge Data Allergies Allergy/AdvReac Type Severity Reaction Status Date / Time adhesive Allergy Mild red/blistered Verified 03/22/19 09:22 skin latex Allergy Mild CONTACT Verified 03/22/19 09:22 DERMATITIS carvedilol Allergy Unknown pt unsure, Verified 03/25/19 12:15 listed prior omeprazole AdvReac Intermediate HALLUCINATI Verified 03/22/19 09:22 ONS oxycodone AdvReac Intermediate itching Verified 03/22/19 09:22 phenobarbital AdvReac Intermediate HALLUCINATI Verified 03/22/19 09:22 ONS cephalexin AdvReac Mild DIARRHEA Verified 03/22/19 09:22 fentanyl AdvReac Mild altered Verified 03/25/19 12:15 mental status levofloxacin AdvReac Mild DIARRHEA Verified 03/22/19 09:22 meperidine AdvReac Mild HEADACHES Verified 03/22/19 09:22 metformin AdvReac Mild DIARRHEA Verified 03/25/19 12:15 Sulfa (Sulfonamide AdvReac Mild DIARRHEA Verified 03/22/19 09:22 Antibiotics) fluoxetine AdvReac Unknown Unknown Verified 03/25/19 12:16 Butter Oil AdvReac Mild DIARRHEA Uncoded 03/22/19 09:22 Consultations 03/22/19 13:07 ED Decision to Admit Stat 03/25/19 10:00 Consult Cardiology Routine Hospital Course (1) Atrial fibrillation by electrocardiogram: 79 yo F w/ pMHx DMII with CKD, TIA, carotid stenosis s/p endarterectomy, CAD, HTN, HLD, chronic gastritis s/p hiatal hernia repair, LUZMA non-compliant with CPAP, who was referred to the ED by her PCP for symptomatic a.fib confirmed by EKG. Of note her dose of levothyroxine was recently changed and it was discovered she had been taking both doses, a total of 188mcgs for almost three months. Pt was admitted 03/19/19 with similar symptoms, treated for GERD and discharged following normal troponin x1 and ECG with NSR and no evidence of ACS with plans for outpatient stress test. A holter monitor in February 2018 showed NSR with frequent PACs and isolated PVCs. Historically she had taken taking rabeprazole, and was discharged with additional scheduled Pepcid. She was no longer taking this as she found it ineffective. The following is the medical management during stay here: Chest discomfort -This was improved during stay here overall with intermittent sxs with GERD symptoms. Serial troponins were negative, and we thought symptoms were unlikely to be related to afib, or CAD based on hx. We did not pursue stress test as inpatient, but pt has outpatient follow up for her atrial fibrillation with cardiology on 04/07. Atrial Fibrillation -This was noted on EKG in ED. This could have been iatrogenic hyperthyroid state or possibly more chronic. Either way, we changed home atenolol to metoprolol 125 mg BID with goal heart rate in the 80's or below. After this change, pt's HR was ranging in 90-140s overnight. The next day we d/c pt's amlodipine 10mg daily and added diltiazem 120 mg daily, per Cardiology recs, and pt was observed overnight. HR was stable in 70's overnight after this change, but during daytime ranged in 100-110s. Cardiology was ok with the rate, and with plan for d/c with f/u as an outpt. Pt remained asymptomatic, denied CP, SOB, lightheadedness/dizzyness, syncope or near syncope. Pt was on heparin drip given high [id number] score initially and was transitioned to oral medication Apixaban 2.5 mg BID. Echo 03/23 showed moderate concentric LVH, normal LV systolic fxn, LA moderately dilated. As above, pt will f/u with cards on 04/07, and any medication changes will be made at this time. Dizziness -Pt was asymptomatic throughout stay, and this was possibly secondary to atrial fibrillation causing hypotension Iatrogenic hyperthyroid secondary to intake of excess levothyroxine -Pt's TSH was 0.012 and Free T4 2.10 on admission. We continue levothyroxine 88mcgs, and pt will cont on this dose on d/c with recommendation to repeat TSH/T4 in 6 weeks. Anemia -Pt's Hgb on admission was 10.5, historically in 11-12s. There was no evidence per history (no NSAIDs, tobacco use, previous gastric ulcers, or hx of iron supplementation/infusion/blood transfusion) but concern for GI bleed given history of abnormal colonoscopy and family hx of colon cancer vs. anemia 2/2 CKD vs. blood loss from recent surgery. Patient was hemodynamically stable throughout stay here. We got Iron studies, and it showed a iron deficiency picture vs anemia of chronic inflammation. Hgb 10.3 on day of d/c. Pt was not sent home on any iron supplementation, may want to consider adding regimen on d/c. DM II with neuropathy -Pt's last A1c 7.8 in Nov 2018. We continue home glimepiride with glucose monitoring ac/hs along with home duloxetine. Pt's sugars were stable here. CKD III -Pt creatinine was at baseline ~1.5 during stay here GERD- s/p recent hiatal hernia repair -We continued pantoprazole and famotidine HLD, h/o TIA & carotid stenosis -We continued aspirin and atorvastatin HTN -Pt's BP was under good control since admission. We continue home atenolol, amlodipine, losartan-HCTZ. As above, we discontinued amlodipine the day before d/c. LUZMA - Pt has history of LUZMA and sleep study but does not use CPAP at home. Hopefully, this can be further addressed as an outpt. At time of d/c, pt had no other acute concerns or complaints. All f/u appt's and medication changes were extensively discussed with pt. Total Time Total Time Spent Total Time Spent (In Minutes): 30 min Discharge Plan Discharge Items Patient Disposition: Home - Self-Care Reason For Visit: CHEST PAIN Discharge Diagnosis: A fib Discharge Goals: Improve disease control Activity: Per 'Additional Instructions' section Non-emergency contact: Primary Care Provider Call non-emergency contact if: you have any medication questions, your symptoms worsen and your pain is not controlled Follow-up/Referrals: Mega García MD [Physician] - 04/07/19 10:40 am (Please, follow up at [facility] Cardiology Office with Dr. García on April 07 at 11:00 am (arrive 10:40 am). *The office is located in [address] of [facility]. [facility] is the big building next to this [facility]. If you need to change this appointment, call the office at [phone].) Jack Holloway MD [Primary Care Provider] - 03/28/19 11:30 am (Please, follow up at Dr. Holloway's office with his associate, Jennifer HOLT, on Ok May 13th at 11:30 am. *If you need to change this appointment, call the office at [phone].) Rolo Resendez MD [Resident] - 04/06/19 2:30 pm (Please, follow up with Dr. Rolo Resendez on ThursdayApril 06 at 2:30 pm. *The office is located in [address] of [facility]. This is the big building located next to this hospital. If you need to change this appointment, call the office at [phone].) Diet: Carb Consistent or DM2 and Heart Healthy Addtl Provider Instructions: You were admitted for new onset A fib that was found after complaints of chest pain. Please follow the below instructions on discharge: -You will continue to take your new blood thinner medication Eliquis 2.5 mg twice a day -We added two new medications: Metoprolol 125 mg twice a day and diltiazem 120 mg daily. Continue to take these -We discontinued your amlodipine 10 mg. Do not take this on discharge -Only take your 88mcg levothyroxine medication. Do not combine with 100mcg tab! -You will follow up with Cardiology as an outpatient on 04/07. They will make any medication adjustments at this time -You have additional appointments with your PCPs Dr. Holloway (03/28) and Dipti (04/06) -If you notice similar symptoms that you had prior to your arrival to ED, then please come back in -If you notice that your HR is consistently high (>100), then contact the cardiology office or see your PCP sooner Prescriptions: New diltiazem HCl 120 mg capsule,extended release 24 hr 120 mg PO DAILY Qty: 30 RF: 0 metoprolol tartrate 100 mg tablet 125 mg PO BID Qty: 30 RF: 1 Eliquis 2.5 mg tablet 2.5 mg PO BID Qty: 30 RF: 1 Continued rabeprazole [Aciphex] 20 mg Tablet,Delayed Release (Dr/Ec) 20 mg PO QAM RF: 0 atorvastatin 20 mg Tablet 20 mg PO QAM RF: 0 atenolol 100 mg Tablet 100 mg PO QAM RF: 0 aspirin [Aspirin Low Dose] 81 mg Tablet,Delayed Release (Dr/Ec) 81 mg PO HS RF: 0 glimepiride 1 mg Tablet 2 mg PO BID RF: 0 multivitamin Capsule 1 cap PO QAM RF: 0 levothyroxine 88 mcg Capsule 88 mcg PO QAM RF: 0 ascorbic acid (vitamin C) [Vitamin C] 500 mg Tablet 500 mg PO QAM RF: 0 cholecalciferol (vitamin D3) [Vitamin D3] 1,000 unit Capsule 1,000 unit PO QAM RF: 0 losartan-hydrochlorothiazide 100-25 mg Tablet 1 tab PO DAILY RF: 0 famotidine 20 mg tablet 20 mg PO BID 14 Days Qty: 28 RF: 0 ondansetron 4 mg tablet,disintegrating 4 mg PO DAILY PRN (Reason: nausea and vomiting) 10 Days Qty: 10 RF: 0 Discontinued amlodipine 10 mg Tablet 10 mg PO QAM RF: 0 Stand-Alone Forms: [facility] Discharge Orders: Discharge Order (Routine); Ordered 03/27/19 Ordered By: Rei Joel Admission Data Admit Date/Time: 03/22/19 13:19 Attending Provider: Peggy Rodrigues Admit Provider: Peggy Rodrigues Primary Care Provider: Jack Holloway Other Providers: Peggy Rodrigues ; Mega García Service: Telemetry Other Interventions: Discharge Summary Assessment (RN) Last Done: 03/27/19 13:12 DC Date/Time DO NOT enter until pt leaves facility: 03/27/19 13:55 Supervising Physician Co-Signing Physician Notes Resident Physician Supervision Note: I independently interviewed and examined the patient and verified the lane history and physical, reviewed labs and image studies, discussed the case with the resident Dr. Joel and agree with the findings and care plan. Time spent in discharge 35 min Resident Activity Tracking Resident Involvement: Resident Care Provided Care Provided: Adult Hospital Medicine
== END 2019-03-27 13:55 | disposition home or self-care (01) ==
LOC: ED 08:38 → 2S 08:38
DX: Z91.040 Latex allergy status; E11.22 Type 2 diabetes mellitus with diabetic chronic kidney disease; E78.5 Hyperlipidemia, unspecified; G47.33 Obstructive sleep apnea (adult) (pediatric); N18.3 Chronic kidney disease, stage 3 (moderate); I25.10 Atherosclerotic heart disease of native coronary artery without angina pectoris; Z79.899 Other long term (current) drug therapy; I77.1 Stricture of artery; E66.9 Obesity, unspecified; Z79.84 Long term (current) use of oral hypoglycemic drugs; Z86.73 Personal history of transient ischemic attack (TIA), and cerebral infarction without residual deficits; Z88.2 Allergy status to sulfonamides; Z79.1 Long term (current) use of non-steroidal anti-inflammatories (NSAID); I12.9 Hypertensive chronic kidney disease with stage 1 through stage 4 chronic kidney disease, or unspecified chronic kidney disease; K29.50 Unspecified chronic gastritis without bleeding; Z68.33 Body mass index [BMI] 33.0-33.9, adult; M19.90 Unspecified osteoarthritis, unspecified site; I48.0 Paroxysmal atrial fibrillation

== ENCOUNTER 2019-05-10 14:16 | Inpatient (IN) ==
[2019-05-10] MEDS ORDERED: SODIUM CHLORIDE 0.9% 500 ML IV SCH (15:00)
[2019-05-10 15:32] LABS: Basophils # (auto) 0.03 K/uL (0-0.2); Basophils % (auto) 0.3 %; Eosinophils # (auto) 0.09 K/uL (0-0.5); Hematocrit (blood only) 36.6 % (37-47); Hemoglobin 12.2 g/dL (12.0-16.0); Immature Granulocytes # (auto) 0.03 K/uL (0.00-0.02); Immature Granulocytes % (auto) 0.3 %; Lymphocytes # (auto) 1.75 K/uL (1.2-3.4); Lymphocytes % (auto) 18.7 %; Mean Corpuscular Hgb Conc 33.3 g/dL (32-36); Mean Corpuscular Volume 93.6 fL (80-100); Mean Platelet Volume 9.9 fL (7.4-10.4); Monocytes # (auto) 0.85 K/uL (0.11-0.59); Monocytes % (auto) 9.1 %; Neutrophils # (auto) 6.62 K/uL (1.4-6.5); Neutrophils % (auto) 70.6 %; Platelet Count 274 K/uL (130-400); RDW Coefficient of Variation 14.5 % (11.5-14.5); RDW Standard Deviation 49.2 fL (36.4-46.3); Red Blood Count 3.91 M/uL (4.2-5.4); White Blood Count 9.37 K/uL (4.8-10.8)
--- NOTE | 2019-05-10 15:37 | XRay Report ---
XR chest 1V portable CLINICAL HISTORY: Chest Pain COMPARISON STUDY: Chest CT July 21, 2018. Chest radiograph March 22, 2019. FINDINGS: Lung volumes are normal. Lungs are clear. There is no pneumothorax or pleural effusion. Mod erate cardiomegaly is unchanged. Mediastinal contours are normal. There is no evidence for pulmonary edema. Incidental is made of postoperative findings within the left shoulder. IMPRESSION: No acute cardiopulmonary findings. Electronically signed by: Tariq Ortega M.D. 05/10/2019 3:35 PM
[2019-05-10 15:41] LABS: INR 1.1 (0.9-1.1); Prothrombin Time 10.8 Seconds (9.0-12.0)
[2019-05-10 15:50] LABS: Alanine Aminotransferase 25 U/L (12-78); Albumin Level 3.6 gm/dl (3.4-5.0); Aspartate Aminotransferase 18 U/L (15-37); BUN Creatinine Ratio 23.5 (10-20); Blood Urea Nitrogen 36 mg/dl (7-18); Calcium 8.5 mg/dl (8.5-10.1); Carbon Dioxide 25 mmol/L (21-32); Chloride 103 mmol/L (98-107); Creatinine Clr Calc Pharmacy 26.2 ml/min; Est GFR (African American) 36.8; Est GFR (Non-African American) 31.8; Glucose 252 mg/dl (70-99); Magnesium 1.6 mg/dl (1.8-2.4); Potassium 4.2 mmol/L (3.5-5.1); Sodium 136 mmol/L (136-145)
[2019-05-10 16:01] LABS: Albumin Globulin Ratio 0.9 (0.9-2); Alkaline Phosphatase 113 U/L (45-117); Bilirubin,Total 0.3 mg/dl (0.2-1); Globulin 4.2 gm/dl (2.5-4.0); Phosphorus 3.6 mg/dl (2.5-4.9); Total Protein 7.8 gm/dl (6.4-8.2); Troponin I < 0.015 ng/ml (0-0.045)
--- NOTE | 2019-05-10 16:26 | CT Scan Report ---
CT head/brain wo con CLINICAL HISTORY: 79 years-old Female presenting with Left sided ataxia x 3 days, h/o TIA/afib. TECHNIQUE: Multidetector CT imaging of the head was performed without the use of intravenous contrast . IV contrast: None. One or more dose lowering techniques were used consistent with the principles of ALARA (as low as reasonably achievable), including automatic exposure control, mA or kV adjustment t o individual patient size, and/or use of iterative reconstruction. COMPARISON: 12/20/2018. CT DOSE (mGy.cm): The estimated cumulative dose is 614.27 mGy.cm. FINDINGS: Grounds Keeper topogram: Unremarkable. Proportional ventricular and sulcal prominence, likely age-related parenchymal volume loss. No hemorr afshan. Periventricular and subcortical white matter hypoattenuation, nonspecific but likely indicative of chronic small vessel ischemic change. No acute territorial infarct. No mass effect or midline geronimo ft. No extra-axial fluid collection. Paranasal sinuses and mastoid air cells clear. Calvarium intact. IMPRESSION: 1. Chronic small vessel ischemic change. No acute intracranial abnormality. Electronically signed by: George Conklin M.D. 05/10/2019 4:25 PM
[2019-05-10] MEDS ORDERED: MAGNESIUM SULFATE / D5W 1 GM/100 ML BAG IV STA (16:45)
[2019-05-10 18:03] LABS: Appearance Urine Clear (Clear); Bacteria Urine Automated Negative (Negative); Bilirubin Urine Negative (Negative); Blood Urine Negative (Negative); Color Urine Yellow; Epithelial Cell Urine Auto 20-30 /lpf (0-5); Glucose Urine UA Negative (Negative); Ketones Urine Negative (Negative); Leukocyte Esterase Urine 1+ (Negative); Nitrite Urine Negative (Negative); Protein Urine 1+ (Negative); RBC Urine Automated 0-4 /hpf (0-4); Specific Gravity Urine 1.017 (1.000-1.030); Urobilinogen Urine Negative (Negative)
[2019-05-10] MEDS ORDERED: ACETAMINOPHEN 1,000 MG/100 ML VIAL IV STA (18:14)
--- NOTE | 2019-05-10 18:15 | Emergency Department Note ---
Entered by Bro Colon acting as a scribe for Nav Jean MD History of Present Illness General Chief complaint: Confusion Stated complaint: POSSIBLE STROKE Time Seen by Provider: 05/10/19 14:58 Source: patient and family History of Present Illness Onset (ago): day(s) (past few) Location: head (global) Pain Consistency: + other (persistent) Quality: + other (stroke-like symptoms) Associated symptoms: + other (difficulties with coordination and speech) The patient is an 79 year old female who presents to the Emergency Room with complaints of persistent stroke-like symptoms beginning a few days ago after cardioversion. The patient reports that for the past few days following the cardioversion for atrial fibrillation, she has been talking funny, having difficulty with writing and coordination, and experiencing gait difficulties. The at bedside states that the patient currently appears to be speaking normally. She was convinced to come to the ER today by the insistence of her son and . She notes that she was placed on Brilinta following the cardioversion. She reports a history of possible TIA. She states that she does not wear a pacemaker. Home Medications Home Medications Medication Instructions Recorded Confirmed Type aspirin [Aspirin Low Dose] 81 mg PO HS 07/21/18 05/02/19 History atorvastatin 20 mg PO QAM 07/21/18 05/02/19 History levothyroxine 88 mcg PO QAM 07/21/18 05/02/19 History multivitamin 1 cap PO QAM 07/21/18 05/02/19 History rabeprazole [Aciphex] 20 mg PO QAM 07/21/18 05/02/19 History ascorbic acid (vitamin C) [Vitamin 500 mg PO QAM 02/23/19 05/02/19 History C] cholecalciferol (vitamin D3) 1,000 unit PO QAM 02/23/19 05/02/19 History [Vitamin D3] losartan-hydrochlorothiazide 1 tab PO QAM 03/01/19 05/02/19 History Eliquis 2.5 mg PO BID #30 tab 03/26/19 05/02/19 Rx metoprolol tartrate 125 mg PO BID #30 tab 03/26/19 05/02/19 Rx glimepiride 2 mg tablet 2 mg PO BID #180 tab 04/26/19 05/02/19 Rx diltiazem HCl 120 mg PO QAM 05/02/19 05/02/19 History Allergies Allergy/AdvReac Type Severity Reaction Status Date / Time adhesive Allergy Mild red/blistered Verified 05/02/19 08:29 skin latex Allergy Mild CONTACT Verified 05/02/19 08:29 DERMATITIS carvedilol Allergy Unknown pt unsure, Verified 05/02/19 08:29 listed prior omeprazole AdvReac Intermediate HALLUCINATI Verified 05/02/19 08:29 ONS oxycodone AdvReac Intermediate itching Verified 05/02/19 08:29 phenobarbital AdvReac Intermediate HALLUCINATI Verified 05/02/19 08:29 ONS cephalexin AdvReac Mild DIARRHEA Verified 05/02/19 08:29 fentanyl AdvReac Mild altered Verified 05/02/19 08:29 mental status levofloxacin AdvReac Mild DIARRHEA Verified 05/02/19 08:29 meperidine AdvReac Mild HEADACHES Verified 05/02/19 08:29 metformin AdvReac Mild DIARRHEA Verified 05/02/19 08:29 Sulfa (Sulfonamide AdvReac Mild DIARRHEA Verified 05/02/19 08:29 Antibiotics) fluoxetine AdvReac Unknown Unknown Verified 05/02/19 08:29 Past Med/Surg History Medical History Chronic gastritis HLD (hyperlipidemia) LUZMA (obstructive sleep apnea) NO DEVICE HTN (hypertension) CKD (chronic kidney disease) stage 3, GFR 30-59 ml/min Diabetes mellitus Hypothyroid 2/2 thyroidectomy Paroxysmal atrial fibrillation CURRENTLY AND SCHEDULED FOR CARDIOVERSION Anxiety Benign essential tremor Bowel perforation Depression Diverticular disease HX DIVERTICULITIS PER RECORDS GERD (gastroesophageal reflux disease) Hiatal hernia History of blood transfusion POST-OP ROBE History of palpitations Hx of intestinal obstruction 50 YEARS AGO PER RECORDS IBS (irritable bowel syndrome) Macular degeneration Obesity Osteoarthritis RLS (restless legs syndrome) Transient ischemic attack (TIA) 03/2018 Surgical History Family history of reaction to anesthesia SON-HARD TIME WAKING UP. H/O total thyroidectomy H/O: hysterectomy History of back surgery LUMBAR DISCECTOMY History of blepharoplasty History of bowel resection History of cardiac cath X2 TOTAL (10+ YEARS AGO)= NO STENTS History of herniorrhaphy VENTRAL HERNIA History of inguinal hernia repair X3 (CHILD) History of laryngoscopy REMOVAL OF POLYPS History of repair of hiatal hernia 02/2019 History of repair of rotator cuff RIGHT X3, LEFT X 1 History of tubal ligation Hx of hand surgery LUMP REMOVED FROM RIGHT HAND Previous section X3 S/P appendectomy S/P carotid endarterectomy RIGHT S/P cholecystectomy S/P lumpectomy of breast RIGHT Family History Son Family history of reaction to anesthesia SLOW TO WAKE Brother Family history of diabetes mellitus Sister Family history of diabetes mellitus Mother Family history of diabetes mellitus Uncle Family hx of colon cancer X 3 Social History Preferred Language: [place] Communication Ability: Effective 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 and A total of 10 systems reviewed and were otherwise negative Physical Exam Vital Signs Vital Signs - 24 hr 05/10/19 14:25 05/10/19 15:07 05/10/19 15:11 Temperature 36.4 C L Temperature Source Oral Sepsis Recent Fever Within 48 Hours No Sepsis New/Unexplained Change in Mental Status No Sepsis Action Taken by Nursing No Action Required Pulse Rate 77 72 72 Pulse Rate from SpO2 Sensor 74 72 Respiratory Rate 16 32 H 29 H Blood Pressure 161/78 H Blood Pressure Mean 105 Pulse Oximetry 97 97 98 Oxygen Delivery Method Room Air 05/10/19 15:12 05/10/19 15:20 05/10/19 15:24 Temperature Temperature Source Sepsis Recent Fever Within 48 Hours Sepsis New/Unexplained Change in Mental Status Sepsis Action Taken by Nursing Pulse Rate 73 72 Pulse Rate from SpO2 Sensor Respiratory Rate 30 H 23 Blood Pressure 178/87 H Blood Pressure Mean 117 Pulse Oximetry 96 Oxygen Delivery Method Room Air 05/10/19 15:30 05/10/19 15:41 05/10/19 15:50 Temperature Temperature Source Sepsis Recent Fever Within 48 Hours Sepsis New/Unexplained Change in Mental Status Sepsis Action Taken by Nursing Pulse Rate 73 72 71 Pulse Rate from SpO2 Sensor 71 71 Respiratory Rate 17 26 H 20 Blood Pressure Blood Pressure Mean Pulse Oximetry 97 99 Oxygen Delivery Method 05/10/19 16:00 05/10/19 16:01 05/10/19 16:25 Temperature Temperature Source Sepsis Recent Fever Within 48 Hours Sepsis New/Unexplained Change in Mental Status Sepsis Action Taken by Nursing Pulse Rate 73 71 76 Pulse Rate from SpO2 Sensor 73 71 77 Respiratory Rate 20 26 H 18 Blood Pressure 171/75 H 130/79 Blood Pressure Mean 107 96 Pulse Oximetry 98 98 96 Oxygen Delivery Method 05/10/19 16:30 05/10/19 16:40 05/10/19 16:41 Temperature Temperature Source Sepsis Recent Fever Within 48 Hours Sepsis New/Unexplained Change in Mental Status Sepsis Action Taken by Nursing Pulse Rate 77 75 76 Pulse Rate from SpO2 Sensor 77 76 75 Respiratory Rate 20 24 20 Blood Pressure 130/79 130/79 Blood Pressure Mean 96 96 Pulse Oximetry 98 97 97 Oxygen Delivery Method 05/10/19 16:51 05/10/19 17:00 05/10/19 17:02 Temperature Temperature Source Sepsis Recent Fever Within 48 Hours Sepsis New/Unexplained Change in Mental Status Sepsis Action Taken by Nursing Pulse Rate 76 78 77 Pulse Rate from SpO2 Sensor 75 78 78 Respiratory Rate 21 26 H 20 Blood Pressure 172/66 H Blood Pressure Mean 101 Pulse Oximetry 100 98 95 Oxygen Delivery Method 05/10/19 17:10 05/10/19 17:21 05/10/19 17:30 Temperature Temperature Source Sepsis Recent Fever Within 48 Hours Sepsis New/Unexplained Change in Mental Status Sepsis Action Taken by Nursing Pulse Rate 80 81 77 Pulse Rate from SpO2 Sensor 80 81 77 Respiratory Rate 22 18 26 H Blood Pressure Blood Pressure Mean Pulse Oximetry 98 98 98 Oxygen Delivery Method 05/10/19 17:40 05/10/19 17:55 05/10/19 18:00 Temperature Temperature Source Sepsis Recent Fever Within 48 Hours Sepsis New/Unexplained Change in Mental Status Sepsis Action Taken by Nursing Pulse Rate 78 83 Pulse Rate from SpO2 Sensor 78 Respiratory Rate 18 20 27 H Blood Pressure Blood Pressure Mean Pulse Oximetry 97 Oxygen Delivery Method 05/10/19 18:10 Temperature Temperature Source Sepsis Recent Fever Within 48 Hours Sepsis New/Unexplained Change in Mental Status Sepsis Action Taken by Nursing Pulse Rate 76 Pulse Rate from SpO2 Sensor Respiratory Rate 26 H Blood Pressure Blood Pressure Mean Pulse Oximetry Oxygen Delivery Method GENERAL: Awake, alert, fatigued-appearing, in no distress HENT: Normocephalic, atraumatic. Mucous membranes dry. EYES: Normal conjunctiva. Sclera non-icteric. EOMI. No nystamgus. PEARRL. NECK: Supple. No nuchal rigidity. FROM. No JVD. RESPIRATORY: Clear to auscultation bilaterally. CARDIAC: Regular rate, normal rhythm. Extremities warm and well perfused. Pulses equal. ABDOMEN: Soft, non-distended. No tenderness to palpation. No rebound or guarding. No masses. RECTAL: Deferred. MUSCULOSKELETAL: Chest examination reveals no tenderness. The back is symmetrical on inspection without obvious abnormality. There is no CVA tenderness to palpation. No joint edema. LOWER EXTREMITIES: Calves are equal size bilaterally and non-tender. No edema. No discoloration. NEURO: Normal sensorium. CNII-XII grossly intact. Speech fluent. Mild bilateral intention tremor at baseline. Mild ataxia of the left upper extremity with impaired [id number] and alternating palms. SKIN: No rash or jaundice noted. Course 1517: The patient was evaluated in room C3. A complete history and physical examination were performed. 1651: I updated the patient. 1718: I consulted Dr. cMguire [facility] Hospitalist. The patient will be reevaluated for hospitalization. Administered Medications Apixaban (Eliquis) 2.5 mg PO BID DEVORAH Stop: 06/09/19 20:59 Last Admin: 05/10/19 20:32 Dose: 2.5 mg Documented by: [id number] Aspirin (Ecotrin Ectab) 81 mg PO HS DEVORAH Stop: 06/09/19 20:59 Last Admin: 05/10/19 20:31 Dose: 81 mg Documented by: [id number] Ceftriaxone Sodium 2,000 mg/ (Dextrose) 70 mls @ 100 mls/hr IV Q24H DEVORAH; Protocol Stop: 05/20/19 19:59 Last Infusion: 05/10/19 21:56 Dose: 0 mls/hr Documented by: [id number] Admin: 05/10/19 20:28 Dose: 100 mls/hr Documented by: [id number] Insulin Aspart (Novolog Flexpen) 0 units SC ACHS DEVORAH Stop: 06/09/19 20:59 Last Admin: 05/10/19 20:33 Dose: 3 units Documented by: [id number] Cosigned by: [id number] Metoprolol Tartrate (Lopressor) 125 mg PO BID DEVORAH Stop: 06/09/19 20:59 Last Admin: 05/10/19 20:30 Dose: 125 mg Documented by: [id number] Discontinued Medications Acetaminophen (Tylenol) 1,000 mg PO NOW STA Stop: 05/10/19 18:19 Last Admin: 05/10/19 18:21 Dose: 1,000 mg Documented by: [id number] Sodium Chloride (Nss) 500 mls @ 999 mls/hr IV .Q31M DEVORAH Stop: 05/10/19 15:30 Last Infusion: 05/10/19 16:39 Dose: 0 mls/hr Documented by: [id number] Admin: 05/10/19 15:39 Dose: 999 mls/hr Documented by: [id number] Magnesium Sulfate/Dextrose (Magnesium Sulfate / D5w) 1 gm in 100 mls @ 100 mls/hr IV Q1H STA Stop: 05/10/19 17:44 Last Infusion: 05/10/19 17:51 Dose: 0 mls/hr Documented by: [id number] Admin: 05/10/19 16:50 Dose: 100 mls/hr Documented by: [id number] Acetaminophen (Ofirmev) 1,000 mg in 100 mls @ 400 mls/hr IV NOW STA Stop: 05/10/19 18:28 Last Admin: 05/10/19 18:22 Dose: Not Given Documented by: [id number] Medical Decision Making Differential Diagnosis Differential diagnosis includes: stroke, metabolic, infection, hypo/hyperglycemia, electrolyte abnormalities, cardiac sources, intracerebral event, toxicologic, neurologic, as well as others were entertained. Medical Records Attestation: I reviewed the patient's medical records. Home Medications Current Medication List: was personally reviewed by me Laboratory Data Attestation: I reviewed the patient's lab results. Result diagrams: 05/10/19 15:22 05/10/19 15:22 Lab Results 05/10/19 05/10/19 05/10/19 Range/Units 15:22 15:22 15:22 WBC 9.37 (4.8-10.8) K/uL RBC 3.91 L (4.2-5.4) M/uL Hgb 12.2 (12.0-16.0) g/dL Hct 36.6 L (37-47) % MCV 93.6 (80-100) fL MCH 31.2 (25-34) pg MCHC 33.3 (32-36) g/dL RDW Std Deviation 49.2 H (36.4-46.3) fL RDW Coeff of Michael 14.5 (11.5-14.5) % Plt Count 274 (130-400) K/uL MPV 9.9 (7.4-10.4) fL Immature Gran % (Auto) 0.3 % Neut % (Auto) 70.6 % Lymph % (Auto) 18.7 % [place] % (Auto) 9.1 % Eos % (Auto) 1.0 % Baso % (Auto) 0.3 % Immature Gran # (Auto) 0.03 H (0.00-0.02) K/uL Neut # (Auto) 6.62 H (1.4-6.5) K/uL Lymph # (Auto) 1.75 (1.2-3.4) K/uL [place] # (Auto) 0.85 H (0.11-0.59) K/uL Eos # (Auto) 0.09 (0-0.5) K/uL Baso # (Auto) 0.03 (0-0.2) K/uL PT 10.8 (9.0-12.0) Seconds INR 1.1 (0.9-1.1) Sodium 136 (136-145) mmol/L Potassium 4.2 (3.5-5.1) mmol/L Chloride 103 (98-107) mmol/L Carbon Dioxide 25 (21-32) mmol/L Anion Gap 8.0 (3-11) BUN 36 H (7-18) mg/dl Creatinine 1.53 H (0.6-1.2) mg/dl Est Cr Clr Drug Dosing 26.2 ml/min Est GFR ( Amer) 36.8 Est GFR (Non-Af Amer) 31.8 BUN/Creatinine Ratio 23.5 H (10-20) Glucose 252 H (70-99) mg/dl Calcium 8.5 (8.5-10.1) mg/dl Phosphorus 3.6 (2.5-4.9) mg/dl Magnesium 1.6 L (1.8-2.4) mg/dl Total Bilirubin 0.3 (0.2-1) mg/dl AST 18 (15-37) U/L ALT 25 (12-78) U/L Alkaline Phosphatase 113 (45-117) U/L Troponin I < 0.015 (0-0.045) ng/ml Total Protein 7.8 (6.4-8.2) gm/dl Albumin 3.6 (3.4-5.0) gm/dl Globulin 4.2 H (2.5-4.0) gm/dl Albumin/Globulin Ratio 0.9 (0.9-2) Lipase 186 (73-393) U/L TSH 3.570 (0.300-4.500) uIu/ml Urine Color Urine Appearance (Clear) Urine pH (4.5-7.5) Ur Specific [place] (1.000-1.030) Urine Protein (Negative) Urine Glucose (UA) (Negative) Urine Ketones (Negative) Urine Blood (Negative) Urine Nitrite (Negative) Urine Bilirubin (Negative) Urine Urobilinogen (Negative) Ur Leukocyte Esterase (Negative) Urine WBC (Auto) (0-5) /hpf Urine RBC (Auto) (0-4) /hpf U Hyaline Cast (Auto) (0-5) /lpf U Epithel Cells (Auto) (0-5) /lpf Urine Bacteria (Auto) (Negative) Lyme Disease IgG Ab (Negative) Lyme Disease IgM Ab (Negative) 05/10/19 05/10/19 Range/Units 15:22 17:54 WBC (4.8-10.8) K/uL RBC (4.2-5.4) M/uL Hgb (12.0-16.0) g/dL Hct (37-47) % MCV (80-100) fL MCH (25-34) pg MCHC (32-36) g/dL RDW Std Deviation (36.4-46.3) fL RDW Coeff of Michael (11.5-14.5) % Plt Count (130-400) K/uL MPV (7.4-10.4) fL Immature Gran % (Auto) % Neut % (Auto) % Lymph % (Auto) % [place] % (Auto) % Eos % (Auto) % Baso % (Auto) % Immature Gran # (Auto) (0.00-0.02) K/uL Neut # (Auto) (1.4-6.5) K/uL Lymph # (Auto) (1.2-3.4) K/uL [place] # (Auto) (0.11-0.59) K/uL Eos # (Auto) (0-0.5) K/uL Baso # (Auto) (0-0.2) K/uL PT (9.0-12.0) Seconds INR (0.9-1.1) Sodium (136-145) mmol/L Potassium (3.5-5.1) mmol/L Chloride (98-107) mmol/L Carbon Dioxide (21-32) mmol/L Anion Gap (3-11) BUN (7-18) mg/dl Creatinine (0.6-1.2) mg/dl Est Cr Clr Drug Dosing ml/min Est GFR ( Amer) Est GFR (Non-Af Amer) BUN/Creatinine Ratio (10-20) Glucose (70-99) mg/dl Calcium (8.5-10.1) mg/dl Phosphorus (2.5-4.9) mg/dl Magnesium (1.8-2.4) mg/dl Total Bilirubin (0.2-1) mg/dl AST (15-37) U/L ALT (12-78) U/L Alkaline Phosphatase (45-117) U/L Troponin I (0-0.045) ng/ml Total Protein (6.4-8.2) gm/dl Albumin (3.4-5.0) gm/dl Globulin (2.5-4.0) gm/dl Albumin/Globulin Ratio (0.9-2) Lipase (73-393) U/L TSH (0.300-4.500) uIu/ml Urine Color Yellow Urine Appearance Clear (Clear) Urine pH 5.0 (4.5-7.5) Ur Specific [place] 1.017 (1.000-1.030) Urine Protein 1+ H (Negative) Urine Glucose (UA) Negative (Negative) Urine Ketones Negative (Negative) Urine Blood Negative (Negative) Urine Nitrite Negative (Negative) Urine Bilirubin Negative (Negative) Urine Urobilinogen Negative (Negative) Ur Leukocyte Esterase 1+ H (Negative) Urine WBC (Auto) 1-5 (0-5) /hpf Urine RBC (Auto) 0-4 (0-4) /hpf U Hyaline Cast (Auto) 1-5 (0-5) /lpf U Epithel Cells (Auto) 20-30 H (0-5) /lpf Urine Bacteria (Auto) Negative (Negative) Lyme Disease IgG Ab Negative (Negative) Lyme Disease IgM Ab Negative (Negative) Imaging Data Radiologist's Impression: Radiology results as stated below per my review and the radiologist's interpretation: XR chest 1V portable CLINICAL HISTORY: Chest Pain COMPARISON STUDY: Chest CT July 21, 2018. Chest radiograph March 22, 2019. FINDINGS: Lung volumes are normal. Lungs are clear. There is no pneumothorax or pleural effusion. Moderate cardiomegaly is unchanged. Mediastinal contours are normal. There is no evidence for pulmonary edema. Incidental is made of postoperative findings within the left shoulder. IMPRESSION: No acute cardiopulmonary findings. Electronically signed by: Tariq Ortega M.D. 05/10/2019 3:[address] head/brain wo con CLINICAL HISTORY: 79 years-old Female presenting with Left sided ataxia x 3 days, h/o TIA/afib. TECHNIQUE: Multidetector CT imaging of the head was performed without the use of intravenous contrast. IV contrast: None. One or more dose lowering techniques were used consistent with the principles of ALARA (as low as reasonably achievable), including automatic exposure control, mA or kV adjustment to in dividual patient size, and/or use of iterative reconstruction. COMPARISON: 12/20/2018. CT DOSE (mGy.cm): The estimated cumulative dose is 614.27 mGy.cm. FINDINGS: Lifter topogram: Unremarkable. Proportional ventricular and sulcal prominence, likely age-related parenchymal volume loss. No hemorrhage. Periventricular and subcortical white matter hypoattenuation, nonspecific but likely indicative of chronic small vessel ischemic change. No acute territorial infarct. No mass effect or midline shift. No extra-axial fluid collection. Paranasal sinuses and mastoid air cells clear. Calvarium intact. IMPRESSION: 1. Chronic small vessel ischemic change. No acute intracranial abnormality. Electronically signed by: George Conklin M.D. 05/10/2019 4:25 PM ECG Data Attestation: I personally reviewed and interpreted this ECG as follows: Indication: other (stroke-like symptoms) Rate (beats per minute): 72 Rhythm: normal sinus Findings: + other (LVH; repolarization abnormality); no ST depression and no ST elevation Comparison ECG Date: from (05/04/19) Change: no significant change Blood Pressure Blood Pressure Findings: Elevated blood pressure Blood Pressure Disposition: further management by hospitalist MDM Narrative The pateint is a pleasant 79 y/o woman with a pmhx of TIA, afib on Eliquis, CKD, LUZMA, HTN, HLD, DM who presents to the emergency department with new impaired coordination of her left arm unable to write (left handed) and leftward leaning with ambulation with intermittent difficulty with word finding with began several days ago but was finally convinced by family to be evaluated. Of note, patient was cardioverted from afib to [facility] last week. On arrival the patient is in NAD, AFVSS. Patient appears clinically dry. Speech is fluent. She has mild impairment left sided impairment with finger to nose and alternating palms. EKG with similar ST abnormality to prior and otherwise without evidence of acute ischemia. CXR negative. CT head with chronic small vessel change and otherwise no acute process. WBC, Hbg, platelets wnl. Glucose 200s and Chemistry without acidosis. Cr. 1.5 similar to baseline CKD range. Magnesium 1.6 with repletion provided. LFTs and electrolytes unremarkable. Troponin negative. Lyme screen negative. UA negative. Sx are concerning for possible posterior stroke, given symptom onset 3 days ago, not a candidate for invervention and so stroke alert not activated. Appropriate to admit for further stroke evaluation including MRI. Case d/w Dr. Shahana Mcguire, [facility] hospitalist, who will evaluate the patient for admission. Impression & Plan Stroke-like symptoms Discharge Plan Visit Data *Final* Discharge Date/Time: 05/10/19 18:38 Chief Complaint: Confusion Stated Complaint: POSSIBLE STROKE ED Provider: Nav Jean Discharge Problem: Stroke-like symptoms Patient Disposition: Admitted As Inpatient Discharge Instructions Interventions: ED Discharge Assessment Last Done: 05/10/19 18:38 The scribe's documentation has been prepared under my direction and personally reviewed by me in its entirety. I confirm that the note above accurately ref lects all work, treatment, procedures, and medical decision making performed by me.
[2019-05-10] MEDS ORDERED: ACETAMINOPHEN 500 MG TAB PO STA (18:18)
--- NOTE | 2019-05-10 18:22 | History & Physical Report ---
Date of Service May 10, 2019 Assessment & Plan (1) Stroke-like symptoms: UA + for leuk est, neg nitrites Will start on ceftriaxone and monitor Cx pending CT head: neg for acute CXR: neg for acute Given that pt is feeling improved, it is possible that her sx are due to UTI Will hold on further imaging for now, but if worsening of sx or neg cx, will likely need to pursue MRI PT/OT pending Hold on neuro c/s for now Takes aspirin 81mg for prevention at baseline, will continue Plan disucussed with pt and family. They understand that there would be no change in current plan if MRI was noted for CVA and are in agreement to monitor pt with tx for UTI prior to ordering further imaging. (2) Hypomagnesemia: Replaced in the ED, monitor (3) Chronic gastritis: continue home meds (4) HLD (hyperlipidemia): continue home meds (5) HTN (hypertension): continue home meds (6) CKD (chronic kidney disease) stage 3, GFR 30-59 ml/min: Baseline cr is 1.4-1.7 1.5 on admission, monitor (7) Diabetes mellitus: Glimepiride at home SSI PRN A1c pending (8) Hypothyroid: continue home meds (9) Paroxysmal atrial fibrillation: continue home meds, eliquis Recent cardioversion last week (10) Tremor: continue home meds (11) RLS (restless legs syndrome): continue home meds (12) Depression: continue home meds (13) DVT prophylaxis: SCDs, eliquis History of Present Illness Chief Complaint: 79 y/o F c/o confused for the last several days that has been worsening. Pt states she has been feeling like her brain is "fuzzy" and "I can't walk right" for the last few days since her cardioversion last week. She states it is getting worse. Family notes that she has been having issues with remembering things she was just told and just not making sense. Pt feels that she is getting very weak and cannot keep her balance. She is lightheaded at times. She feels her coordination is off. She is left handed and feels that her writing is off. She is having difficulty expressing herself to people. Pt denies fever, SOB, chest pain, abd pain, n/v/c/d, LE pain or swelling. This is a new issue for pt. In the ED, pt receive Mg and IVF. She states she is feeling a bit more clear. She was able to ambulate from the bathroom better than she had been. Family states that pt could not remember the date prior no matter how many times she was told. She was able to tell me it was April 2019, although she does feel she had to think about it more than she usually would. Primary Care Provider: Jack Holloway MD Allergies Allergy/AdvReac Type Severity Reaction Status Date / Time adhesive Allergy Mild red/blistered Verified 05/02/19 08:29 skin latex Allergy Mild CONTACT Verified 05/02/19 08:29 DERMATITIS carvedilol Allergy Unknown pt unsure, Verified 05/02/19 08:29 listed prior omeprazole AdvReac Intermediate HALLUCINATI Verified 05/02/19 08:29 ONS oxycodone AdvReac Intermediate itching Verified 05/02/19 08:29 phenobarbital AdvReac Intermediate HALLUCINATI Verified 05/02/19 08:29 ONS cephalexin AdvReac Mild DIARRHEA Verified 05/02/19 08:29 fentanyl AdvReac Mild altered Verified 05/02/19 08:29 mental status levofloxacin AdvReac Mild DIARRHEA Verified 05/02/19 08:29 meperidine AdvReac Mild HEADACHES Verified 05/02/19 08:29 metformin AdvReac Mild DIARRHEA Verified 05/02/19 08:29 Sulfa (Sulfonamide AdvReac Mild DIARRHEA Verified 05/02/19 08:29 Antibiotics) fluoxetine AdvReac Unknown Unknown Verified 05/02/19 08:29 Home Medications Home Medications Medication Instructions Recorded Confirmed Type aspirin [Aspirin Low Dose] 81 mg PO HS 07/21/18 05/02/19 History atorvastatin 20 mg PO QAM 07/21/18 05/02/19 History levothyroxine 88 mcg PO QAM 07/21/18 05/02/19 History multivitamin 1 cap PO QAM 07/21/18 05/02/19 History rabeprazole [Aciphex] 20 mg PO QAM 07/21/18 05/02/19 History ascorbic acid (vitamin C) [Vitamin 500 mg PO QAM 02/23/19 05/02/19 History C] cholecalciferol (vitamin D3) 1,000 unit PO QAM 02/23/19 05/02/19 History [Vitamin D3] losartan-hydrochlorothiazide 1 tab PO QAM 03/01/19 05/02/19 History Eliquis 2.5 mg PO BID #30 tab 03/26/19 05/02/19 Rx metoprolol tartrate 125 mg PO BID #30 tab 03/26/19 05/02/19 Rx glimepiride 2 mg tablet 2 mg PO BID #180 tab 04/26/19 05/02/19 Rx diltiazem HCl 120 mg PO QAM 05/02/19 05/02/19 History Past Med/Surg History Medical History Chronic gastritis HLD (hyperlipidemia) LUZMA (obstructive sleep apnea) NO DEVICE HTN (hypertension) CKD (chronic kidney disease) stage 3, GFR 30-59 ml/min Diabetes mellitus Hypothyroid 2/2 thyroidectomy Paroxysmal atrial fibrillation CURRENTLY AND SCHEDULED FOR CARDIOVERSION Anxiety Benign essential tremor Bowel perforation Depression Diverticular disease HX DIVERTICULITIS PER RECORDS GERD (gastroesophageal reflux disease) Hiatal hernia History of blood transfusion POST-OP ROBE History of palpitations Hx of intestinal obstruction 50 YEARS AGO PER RECORDS IBS (irritable bowel syndrome) Macular degeneration Obesity Osteoarthritis RLS (restless legs syndrome) Transient ischemic attack (TIA) 03/2018 Surgical History Family history of reaction to anesthesia SON-HARD TIME WAKING UP. H/O total thyroidectomy H/O: hysterectomy History of back surgery LUMBAR DISCECTOMY History of blepharoplasty History of bowel resection History of cardiac cath X2 TOTAL (10+ YEARS AGO)= NO STENTS History of herniorrhaphy VENTRAL HERNIA History of inguinal hernia repair X3 (CHILD) History of laryngoscopy REMOVAL OF POLYPS History of repair of hiatal hernia 02/2019 History of repair of rotator cuff RIGHT X3, LEFT X 1 History of tubal ligation Hx of hand surgery LUMP REMOVED FROM RIGHT HAND Previous section X3 S/P appendectomy S/P carotid endarterectomy RIGHT S/P cholecystectomy S/P lumpectomy of breast RIGHT Family History Son Family history of reaction to anesthesia SLOW TO WAKE Brother Family history of diabetes mellitus Sister Family history of diabetes mellitus Mother Family history of diabetes mellitus Uncle Family hx of colon cancer X 3 Social History Preferred Language: Urdu Communication Ability: Effective It Director Required: No Beliefs That Will Affect Care: None marital status: Current Living Situation: Spouse Other Information That Helps Us Care for You: No Feels Safe at Home: Yes Safety Concerns: Feels Safe At This Time Smoking Status: Never smoker Second Hand Exposure: No Hx Alcohol Use: No Hx Substance Use: No Review of Systems Review of Systems: Pertinent positives and negatives reviewed in HPI--all others negative Physical Exam Constitutional: WD/WN, vitals as above Eyes: normal visual murphy by confrontation and + anicteric sclerae Neck: normal visual inspection and trachea midline Respiratory: normal respiratory effort, lungs clear to auscultation Cardiovascular: Rate/Rhythm: regular rate and regular rhythm Gastrointestinal (Abdomen): Inspection/Auscultation: abdomen not distended Percussion/Palpation: abdomen soft; abdomen nontender Musculoskeletal: Head/Neck/Chest: normocephalic and head atraumatic nega tive for edema, peripheral pulses intact Skin: no rashes, warm and dry Neurologic: CN's II-XI intact bilaterally and awake Speech / Cognition: normal speech Gait: no ataxic gait, no shuffling gait and no staggering gait Psychiatric: A+Ox3, euthymic affect Orientation: cooperative Apperance: appropriately groomed Eye Contact: good eye contact Speech: normal rate/rhythm/volume of speech Affect: euthymic affect Thought Process: linear/logical thought process; no confabulations and no word salad Pt was slow to answer year and month, but did answer correctly. Able to recount recent health events and hx. Results & Data Vital Signs (Past 12 Hours) Vital Signs Temp Pulse Resp BP Pulse Ox 05/10/19 15:30 73 17 05/10/19 15:24 96 05/10/19 15:20 72 23 05/10/19 15:12 73 30 H 178/87 H 05/10/19 15:11 72 29 H 98 05/10/19 15:07 72 32 H 97 05/10/19 14:25 36.4 C L 77 16 161/78 H 97 Diagnostic Findings CXR: neg for acute CT head: neg for acute ECG Rhythm: normal sinus Code Status & VTE Plan Code Status Full code, although pt states no prolonged mechanical life support, feeding tubes, etc VTE Prophylaxis Plan VTE Prophylaxis will be ordered: Yes PG Care Time/CCT Total # of Minutes Spent Total Time Spent with Patient: Total time spent is greater than 50% in coordination of care (as documented) at patient's floor/unit and/or counseling patient:
[2019-05-10] MEDS ORDERED: MAGNESIUM HYDROXIDE SUSP 30 ML UDC PO PRN (19:37)
[2019-05-10] MEDS ORDERED: GLUCOSE 40% GEL 15 GM TUBE PO PRN (19:37)
[2019-05-10] MEDS ORDERED: GLUCAGON FOR INJ 1 MG VIAL SQ PRN (19:37)
[2019-05-10] MEDS ORDERED: CARBOHYDRATES FOR HYPOGLYCEMIA PO PRN (19:37)
[2019-05-10] MEDS ORDERED: ONDANSETRON INJ 2 MG/ML 2 ML VIAL IV PRN (19:37)
[2019-05-10] MEDS ORDERED: DEXTROSE 50% 50 ML SYRINGE IV PRN (19:37)
[2019-05-10] MEDS ORDERED: ACETAMINOPHEN 325 MG TAB PO PRN (19:37)
[2019-05-10] MEDS ORDERED: PHARMACIST DISCHARGE MED REC CONSULT PRN (19:37)
[2019-05-10] MEDS ORDERED: GLUCOSE 10 TABS/TUBE PO PRN (19:37)
[2019-05-10] MEDS: cefTRIAXone SODIUM 2,000 MG in DEXTROSE 5% 50 ML IV SCH (20:28)
[2019-05-10] MEDS: METOPROLOL TARTRATE 50 MG TAB PO SCH (20:30)
[2019-05-10] MEDS: ASPIRIN 81 MG ECTAB PO SCH (20:31)
[2019-05-10] MEDS: APIXABAN 2.5 MG TAB PO SCH (20:32)
[2019-05-10] MEDS: INSULIN ASPART 100 UNITS/ML 3 ML PEN SC SCH (20:33)
[2019-05-10 21:00] LABS: Lyme Ab IgG w/WB Rflx Negative (Negative); Lyme Ab IgM w/WB Rflx Negative (Negative)
[2019-05-11 06:00] LABS: Estimated Average Glucose 203 mg/dl; Hemoglobin A1C 8.7 % (4.5-5.6)
[2019-05-11 06:02] LABS: Basophils # (auto) 0.02 K/uL (0-0.2); Basophils % (auto) 0.2 %; Hematocrit (blood only) 34.9 % (37-47); Hemoglobin 11.9 g/dL (12.0-16.0); Immature Granulocytes # (auto) 0.03 K/uL (0.00-0.02); Immature Granulocytes % (auto) 0.3 %; Lymphocytes # (auto) 1.77 K/uL (1.2-3.4); Mean Corpuscular Hgb Conc 34.1 g/dL (32-36); Mean Corpuscular Volume 93.1 fL (80-100); Mean Platelet Volume 9.7 fL (7.4-10.4); Monocytes # (auto) 0.75 K/uL (0.11-0.59); Monocytes % (auto) 7.6 %; Neutrophils # (auto) 7.06 K/uL (1.4-6.5); Neutrophils % (auto) 71.9 %; Platelet Count 272 K/uL (130-400); RDW Coefficient of Variation 14.4 % (11.5-14.5); RDW Standard Deviation 48.9 fL (36.4-46.3); Red Blood Count 3.75 M/uL (4.2-5.4); White Blood Count 9.83 K/uL (4.8-10.8)
[2019-05-11] MEDS: LEVOTHYROXINE SODIUM 88 MCG TABLET PO SCH (06:13)
[2019-05-11 06:36] LABS: BUN Creatinine Ratio 21.6 (10-20); Calcium 8.1 mg/dl (8.5-10.1); Creatinine Clr Calc Pharmacy 28.5 ml/min; Est GFR (African American) 40.3; Est GFR (Non-African American) 34.8; Potassium 4.2 mmol/L (3.5-5.1)
[2019-05-11 06:42] LABS: Estimated Average Glucose 203 mg/dl; Hemoglobin A1C 8.7 % (4.5-5.6)
[2019-05-11] MEDS: METOPROLOL TARTRATE 50 MG TAB PO SCH ×2 (08:18→20:08)
[2019-05-11] MEDS: dilTIAZem ER 120 MG CAPCR PO SCH (08:20)
[2019-05-11] MEDS: MULTIVITAMIN TAB PO SCH (08:20)
[2019-05-11] MEDS: ASCORBIC ACID 500 MG TAB PO SCH (08:20)
[2019-05-11] MEDS: ATORVASTATIN 20 MG TAB PO SCH (08:21)
[2019-05-11] MEDS: PANTOprazole 40 MG TAB PO SCH (08:21)
[2019-05-11] MEDS: GLIMEPIRIDE 2 MG TAB PO SCH ×2 (08:21→17:46)
[2019-05-11] MEDS: APIXABAN 2.5 MG TAB PO SCH ×2 (08:22→20:08)
[2019-05-11] MEDS: CHOLECALCIFEROL 1,000 UNITS TAB PO SCH (08:22)
[2019-05-11] MEDS: INSULIN ASPART 100 UNITS/ML 3 ML PEN SC SCH ×4 (08:25→20:49)
--- NOTE | 2019-05-11 10:17 | Magnetic Resonance Report ---
MRI OF THE BRAIN WITHOUT IV CONTRAST CLINICAL HISTORY: Change in mental status. COMPARISON STUDY: CT of the brain dated 05/10/2019. TECHNIQUE: MRI of the brain was performed utilizing various T1 and T2-weighted sequences in the axial , sagittal, and coronal planes. IV contrast was not administered for this examination. FINDINGS: Brain parenchyma: There is age-related involutional change noting moderate subcortical and periventri cular microangiopathic disease. There is no hemorrhage or mass effect. There is no restricted diffusi on to suggest acute ischemia. Woody-white matter differentiation is preserved. No extra-axial fluid co llection is seen. The cerebellar tonsils are normal in configuration. Ventricles, sulci, and cisterns: Prominent secondary to involutional change. Pituitary and sella: Unremarkable. Intracranial vasculature: Normal flow voids are maintained at the skull base. Orbits: The bony orbits are grossly intact. Orbital contents are normal in appearance. Sinuses and mastoids: There is trace mucosal thickening within the maxillary antra. The remaining par anasal sinuses are clear. There is a left mastoid effusion. Calvarium: Unremarkable. Cervical cord: Partially visualized cervical spinal cord is normal in morphology and signal intensity . IMPRESSION: There is no acute intracranial abnormality. Electronically signed by: Ridge Valerio M.D. 05/11/2019 10:15 AM
[2019-05-11] MEDS: LOSARTAN/HCTZ 50/12.5MG TAB PO SCH (12:45)
--- NOTE | 2019-05-11 16:28 | Hospitalist Progress Note ---
Date of Service May 11, 2019 Assessment & Plan (1) Stroke-like symptoms: Possibly due to UTI, dehydration, vs. questionable TIA. Also possible this is a longer-term issue with early dementia. Brain MRI on 05/11 was negative for stroke. - Continue ceftriaxone - Follow up Mg tomorrow - PT/OT - Continue aspirin 81mg for prevention at baseline, will continue (2) Hypomagnesemia: Replaced in the ED. - Monitor Mg (3) Chronic gastritis: No current issues. - Continue home meds (4) HTN (hypertension): continue home meds (5) CKD (chronic kidney disease) stage 3, GFR 30-59 ml/min: Baseline cr is 1.4-1.7. Cr was 1.5 on admission - Monitor Cr while admitted (6) Diabetes mellitus: A1c was 8.7% this admission. - Continue glimepiride at home - Sliding scale insulin (7) Hypothyroid: TSH was 3.5 this admission. - Continue home meds (8) Paroxysmal atrial fibrillation: Cardioversion last week. EKG on admission showed normal sinus. No major concerns at present. - Continue home meds, eliquis (9) Tremor: Feels it is worse in the left hand. - Continue home meds - Follow up as outpatient (10) RLS (restless legs syndrome): Continue home meds (11) Depression: Continue home meds (12) DVT prophylaxis: SCDs, eliquis Subjective Still feeling some confused. No major slurred speech. Review of Systems Review of Systems: All systems reviewed & are unremarkable except as noted in HPI & below Physical Exam Constitutional: WD/WN, vitals as above Eyes: normal visual murphy by confrontation and + anicteric sclerae Neck: normal visual inspection and trachea midline Respiratory: normal respiratory effort, lungs clear to auscultation Cardiovascular: Rate/Rhythm: regular rate and regular rhythm Gastrointestinal (Abdomen): Inspection/Auscultation: abdomen not distended Percussion/Palpation: abdomen soft; abdomen nontender Musculoskeletal: Head/Neck/Chest: normocephalic and head atraumatic Skin: no rashes, warm and dry Neurologic: CN's II-XI intact bilaterally and awake Speech / Cognition: normal speech Gait: no ataxic gait, no shuffling gait and no staggering gait Psychiatric: A+Ox3, euthymic affect Orientation: cooperative Apperance: appropriately groomed Eye Contact: good eye contact Speech: normal rate/rhythm/volume of speech Affect: euthymic affect Thought Process: linear/logical thought process; no confabulations and no word salad Results & Data Vital Signs (Past 12 Hours) Vital Signs Temp Pulse Pulse Resp BP Pulse Ox 05/11/19 15:40 36.6 C 69 20 158/68 H 96 05/11/19 11:33 36.6 C 82 16 182/69 H 96 05/11/19 07:33 74 05/11/19 07:05 36.5 C 72 20 170/79 H 97 PG Care Time/CCT Total # of Minutes Spent Total Time Spent with Patient: Total time spent is greater than 50% in coordination of care (as documented) at patient's floor/unit and/or counseling patient:
[2019-05-11] MEDS: cefTRIAXone SODIUM 2,000 MG in DEXTROSE 5% 50 ML IV SCH (19:42)
[2019-05-11] MEDS: ASPIRIN 81 MG ECTAB PO SCH (20:08)
[2019-05-12] MEDS: LEVOTHYROXINE SODIUM 88 MCG TABLET PO SCH (05:54)
[2019-05-12] MEDS: ASCORBIC ACID 500 MG TAB PO SCH (08:31)
[2019-05-12] MEDS: dilTIAZem ER 120 MG CAPCR PO SCH (08:31)
[2019-05-12] MEDS: APIXABAN 2.5 MG TAB PO SCH (08:32)
[2019-05-12] MEDS: GLIMEPIRIDE 2 MG TAB PO SCH (08:32)
[2019-05-12] MEDS: PANTOprazole 40 MG TAB PO SCH (08:32)
[2019-05-12] MEDS: LOSARTAN/HCTZ 50/12.5MG TAB PO SCH (08:32)
[2019-05-12] MEDS: METOPROLOL TARTRATE 50 MG TAB PO SCH (08:32)
[2019-05-12] MEDS: CHOLECALCIFEROL 1,000 UNITS TAB PO SCH (08:32)
[2019-05-12] MEDS: MULTIVITAMIN TAB PO SCH (08:32)
[2019-05-12] MEDS: ATORVASTATIN 20 MG TAB PO SCH (08:32)
[2019-05-12] MEDS: INSULIN ASPART 100 UNITS/ML 3 ML PEN SC SCH (08:33)
[2019-05-12] MEDS ORDERED: STROKE PATIENT DISCHARGE STA (10:03)
--- NOTE | 2019-05-12 16:00 | Discharge Summary ---
Date of Service May 12, 2019 Principal Diagnosis Dizziness - Possibly caused by dehydration or possibly low blood sugar Discharge Exam Constitutional WD/WN, vitals as above Eyes normal visual murphy by confrontation and + anicteric sclerae Neck normal visual inspection and trachea midline Respiratory normal respiratory effort, lungs clear to auscultation Cardiovascular Rate/Rhythm: regular rate and regular rhythm Gastrointestinal (Abdomen) Inspection/Auscultation: abdomen not distended Percussion/Palpation: abdomen soft; abdomen nontender Musculoskeletal Head/Neck/Chest: normocephalic and head atraumatic Skin no rashes, warm and dry Neurologic CN's II-XI intact bilaterally and awake Speech / Cognition: normal speech Gait: no ataxic gait, no shuffling gait and no staggering gait Psychiatric A+Ox3, euthymic affect Orientation: cooperative Apperance: appropriately groomed Eye Contact: good eye contact Speech: normal rate/rhythm/volume of speech Affect: euthymic affect Thought Process: linear/logical thought process; no confabulations and no word salad Discharge Data Allergies Allergy/AdvReac Type Severity Reaction Status Date / Time adhesive Allergy Mild red/blistered Verified 05/02/19 08:29 skin latex Allergy Mild CONTACT Verified 05/02/19 08:29 DERMATITIS carvedilol Allergy Unknown pt unsure, Verified 05/02/19 08:29 listed prior omeprazole AdvReac Intermediate HALLUCINATI Verified 05/02/19 08:29 ONS oxycodone AdvReac Intermediate itching Verified 05/02/19 08:29 phenobarbital AdvReac Intermediate HALLUCINATI Verified 05/02/19 08:29 ONS cephalexin AdvReac Mild DIARRHEA Verified 05/02/19 08:29 fentanyl AdvReac Mild altered Verified 05/02/19 08:29 mental status levofloxacin AdvReac Mild DIARRHEA Verified 05/02/19 08:29 meperidine AdvReac Mild HEADACHES Verified 05/02/19 08:29 metformin AdvReac Mild DIARRHEA Verified 05/02/19 08:29 Sulfa (Sulfonamide AdvReac Mild DIARRHEA Verified 05/02/19 08:29 Antibiotics) fluoxetine AdvReac Unknown Unknown Verified 05/02/19 08:29 Consultations 05/10/19 16:45 ED Decision to Admit Stat 05/10/19 19:37 Consult Case Management - Discharge Planning Routine Consult Case Management - Discharge Planning Routine Ordered Studies 05/10/19 15:34 CT head/brain wo con Stat 05/11/19 08:23 MR brain wo con Routine Hospital Course (1) Stroke-like symptoms: Possibly due to UTI, dehydration, vs. questionable TIA. Also possible this is a longer-term issue with early dementia. Brain MRI on 05/11 was negative for stroke. - Discharged on 3-day course of abx - Follow up with PCP and [facility] for dementia testing - Encouraged to stay hydrated - Continue aspirin 81mg for prevention at baseline, will continue (2) Hypomagnesemia: Replaced in the ED. - Monitor Mg (3) Chronic gastritis: No current issues. - Continue home meds (4) HTN (hypertension): continue home meds (5) CKD (chronic kidney disease) stage 3, GFR 30-59 ml/min: Baseline cr is 1.4-1.7. Cr was 1.5 on admission - Stable while admitted (6) Diabetes mellitus: A1c was 8.7% this admission. - Continue glimepiride at home - Sliding scale insulin (7) Hypothyroid: TSH was 3.5 this admission. - Continue home meds (8) Paroxysmal atrial fibrillation: Cardioversion last week. EKG on admission showed normal sinus. No major concerns at present. - Continue home meds, eliquis (9) Tremor: Feels it is worse in the left hand. - Continue home meds - Follow up as outpatient (10) RLS (restless legs syndrome): Continue home meds (11) Depression: Continue home meds (12) DVT prophylaxis: SCDs, eliquis Total Time Total Time Spent Total Time Spent (In Minutes): 35 Total Time Includes: Examination of the Patient, Medication Reconciliation and Communication With Other Providers Discharge Plan Discharge Items Patient Disposition: Home - Self-Care Reason For Visit: AMS Discharge Diagnosis: Confusion, possible bladder infection, dehydration, vs. low blood sugar Discharge Goals: Decrease discomfort and Diagnostic testing Activity: Resume your previous activity Non-emergency contact: Primary Care Provider and Specialist Call non-emergency contact if: your symptoms worsen and your temperature is above 100.5 Follow-up/Referrals: [facility] [Outside] (Please follow up with the [facility] to better investigate your episodes of confusion.) Jack Holloway MD [Primary Care Provider] - (Please see Dr. Holloway in the next 1-2 weeks to follow up with your blood sugar and blood pressure.) Diet: Carb Consistent or DM2 Addtl Provider Instructions: Ms. Breaux, You were admitted to the hospital with confusion. We gave you some fluids and some magnesium and your confusion improved. It is possible you were just a bit dehydrated. We did a CT scan of your head and an MRI and neither one showed anything wrong. You did not have a stroke which is good news. We are giving you another day of antibiotics to finish treatment for a UTI. This may have increased your confusion, but I do not think it was the only reason for some of your confusion. Please take the first dose of antibiotic tonight. You got a little confused overnight and went into another patient's room, but were fine by the morning. We would like you to see Dr. Holloway in 1-2 weeks to follow up on your blood sugar and blood pressure. Both were a little high in the hospital, but you and family reported they were under good control at home, so we did not adjust them in the hospital. Please follow up with the [facility]. They can do more extensive testing with your episodes of confusion and some of your word-finding problems. Their number is [phone]. Prescriptions: New ciprofloxacin HCl 500 mg tablet 500 mg PO Q12H Qty: 3 RF: 0 Continued glimepiride 2 mg tablet 2 mg PO BID Qty: 180 RF: 3 rabeprazole [Aciphex] 20 mg Tablet,Delayed Release (Dr/Ec) 20 mg PO QAM RF: 0 atorvastatin 20 mg Tablet 20 mg PO QAM RF: 0 aspirin [Aspirin Low Dose] 81 mg Tablet,Delayed Release (Dr/Ec) 81 mg PO HS RF: 0 multivitamin Capsule 1 cap PO QAM RF: 0 levothyroxine 88 mcg Capsule 88 mcg PO QAM RF: 0 ascorbic acid (vitamin C) [Vitamin C] 500 mg Tablet 500 mg PO QAM RF: 0 cholecalciferol (vitamin D3) [Vitamin D3] 1,000 unit Capsule 1,000 unit PO QAM RF: 0 losartan-hydrochlorothiazide 100-25 mg Tablet 1 tab PO QAM RF: 0 metoprolol tartrate 100 mg tablet 125 mg PO BID Qty: 30 RF: 1 Eliquis 2.5 mg tablet 2.5 mg PO BID Qty: 30 RF: 1 diltiazem HCl 120 mg capsule,extended release 24 hr 120 mg PO QAM RF: 0 Stand-Alone Forms: [facility] Discharge Orders: Discharge Order (Routine); Ordered 05/12/19 Ordered By: Dylan Montanez Admission Data Admit Date/Time: 05/10/19 18:17 Attending Provider: Dylan Montanez Admit Provider: Shahana Mcguire Primary Care Provider: Jack Holloway Other Providers: Dylan Montanez Service: Telemetry Medical Other Interventions: Discharge Summary Assessment (RN) Last Done: 05/12/19 10:07 DC Date/Time DO NOT enter until pt leaves facility: 05/12/19 10:45
== END 2019-05-12 10:45 | disposition home or self-care (01) | DRG 690 ==
LOC: ED 14:16 → 2N 18:17 → SUATTDRO 18:17 → 2N 18:38

== ENCOUNTER 2019-05-27 21:49 | Inpatient (IN) ==
[2019-05-27] MEDS ORDERED: SODIUM CHLORIDE 0.9% 1000ML 1,000 ML IV SCH (22:45)
[2019-05-27 23:04] LABS: Basophils # (auto) 0.02 K/uL (0-0.2); Basophils % (auto) 0.2 %; Eosinophils # (auto) 0.23 K/uL (0-0.5); Eosinophils % (auto) 2.6 %; Hematocrit (blood only) 36.2 % (37-47); Immature Granulocytes # (auto) 0.02 K/uL (0.00-0.02); Immature Granulocytes % (auto) 0.2 %; Lymphocytes % (auto) 18.1 %; Mean Corpuscular Hgb Conc 33.1 g/dL (32-36); Mean Corpuscular Volume 93.8 fL (80-100); Mean Platelet Volume 10.3 fL (7.4-10.4); Monocytes # (auto) 0.89 K/uL (0.11-0.59); Monocytes % (auto) 10.1 %; Neutrophils # (auto) 6.07 K/uL (1.4-6.5); Neutrophils % (auto) 68.8 %; Platelet Count 267 K/uL (130-400); RDW Coefficient of Variation 14.5 % (11.5-14.5); RDW Standard Deviation 49.2 fL (36.4-46.3); Red Blood Count 3.86 M/uL (4.2-5.4); White Blood Count 8.83 K/uL (4.8-10.8)
[2019-05-27 23:21] LABS: Alanine Aminotransferase 27 U/L (12-78); Albumin Level 3.6 gm/dl (3.4-5.0); Aspartate Aminotransferase 14 U/L (15-37); BUN Creatinine Ratio 23.3 (10-20); Blood Urea Nitrogen 36 mg/dl (7-18); Calcium 8.7 mg/dl (8.5-10.1); Carbon Dioxide 25 mmol/L (21-32); Chloride 100 mmol/L (98-107); Creatinine Clr Calc Pharmacy 25.8 ml/min; Est GFR (African American) 36.3; Est GFR (Non-African American) 31.3; Glucose 234 mg/dl (70-99); Potassium 4.8 mmol/L (3.5-5.1); Sodium 136 mmol/L (136-145)
[2019-05-27 23:31] LABS: Albumin Globulin Ratio 0.9 (0.9-2); Alkaline Phosphatase 111 U/L (45-117); Bilirubin,Total 0.3 mg/dl (0.2-1); Creatine Kinase 47 U/L (26-192); Total Protein 7.6 gm/dl (6.4-8.2); Troponin I < 0.015 ng/ml (0-0.045)
[2019-05-28 00:30] LABS: Appearance Urine Clear (Clear); Bacteria Urine Automated Negative (Negative); Bilirubin Urine Negative (Negative); Blood Urine Trace (Negative); Color Urine Yellow; Epithelial Cell Urine Auto >30 /lpf (0-5); Glucose Urine UA Negative (Negative); Ketones Urine Negative (Negative); Leukocyte Esterase Urine 2+ (Negative); Nitrite Urine Negative (Negative); Protein Urine Trace (Negative); RBC Urine Automated 0-4 /hpf (0-4); Specific Gravity Urine 1.015 (1.000-1.030); Urobilinogen Urine Negative (Negative)
[2019-05-28 00:42] LABS: Renal Epithelial Cells Urine 0-5 /lpf (0-5)
--- NOTE | 2019-05-28 01:45 | Emergency Department Note ---
Entered by Ortiz Joel acting as a scribe for Toan Roman DO History of Present Illness General Chief complaint: Altered Mental Status Stated complaint: CONFUSION, SEEING THINGS Source: family () Limitations: no limitations History of Present Illness Onset (ago): day(s) 3 Location: head Pain Consistency: + intermittent Maximum Pain Intensity: 0 Quality: + other (worsening) Associated symptoms: + other (hallucinating, forgetting year, place, ) The patient is a 79 white female w/ PMHx HLD, LUZMA, HTN, diabetes, hypothyroid, and CKD who presents to the ED w/ CC of intermittent and worsening confusion beginning 3 days ago. The patient's states the patient has been confused for several months. He states for the past 3 days the patient has been forgetting where she is, who her is, and what year it is. He states the patient has been hallucinating. He notes the patient was put on insulin because her blood sugar was off and her blood sugar has been going up and down for the past 3 days. He notes the patient got her urine checked 3 days ago and states it was fine. The patient states her legs hurt. He notes the patient has not been diagnosed with dementia. The patient denies SOB, chest pain, vomiting, nausea, and diarrhea. Home Medications Home Medications Medication Instructions Recorded Confirmed Type aspirin [Aspirin Low Dose] 81 mg PO HS 07/21/18 05/27/19 History atorvastatin 20 mg PO [facility] 07/21/18 05/27/19 History levothyroxine 88 mcg PO QAM 07/21/18 05/27/19 History multivitamin 1 cap PO QAM 07/21/18 05/27/19 History rabeprazole [Aciphex] 20 mg PO QAM 07/21/18 05/27/19 History ascorbic acid (vitamin C) [Vitamin 500 mg PO QAM 02/23/19 05/27/19 History C] cholecalciferol (vitamin D3) 1,000 unit PO QAM 02/23/19 05/27/19 History [Vitamin D3] losartan-hydrochlorothiazide 1 tab PO QAM 03/01/19 05/27/19 History Eliquis 2.5 mg PO BID #30 tab 03/26/19 05/27/19 Rx metoprolol tartrate 125 mg PO BID #30 tab 03/26/19 05/27/19 Rx glimepiride 2 mg tablet 2 mg PO BID #180 tab 04/26/19 05/27/19 Rx diltiazem ER 120 mg capsule,24 120 mg PO QAM #30 cap 05/23/19 05/27/19 Rx hr,extended release insulin glargine (U-100) 100 5 units SQ DAILY #15 ml 05/24/19 05/27/19 Rx unit/mL (3 mL) subcutaneous pen Allergies Allergy/AdvReac Type Severity Reaction Status Date / Time adhesive Allergy Mild red/blistered Verified 05/27/19 23:00 skin latex Allergy Mild CONTACT Verified 05/27/19 23:00 DERMATITIS carvedilol Allergy Unknown pt unsure, Verified 05/27/19 23:00 listed prior acetaminophen [From Percocet] Allergy Unknown Verified 05/27/19 23:00 gabapentin Allergy Unknown Verified 05/27/19 23:00 ranitidine [From Zantac] Allergy Unknown Verified 05/27/19 23:00 omeprazole AdvReac Intermediate HALLUCINATI Verified 05/27/19 23:00 ONS oxycodone AdvReac Intermediate itching Verified 05/27/19 23:00 phenobarbital AdvReac Intermediate HALLUCINATI Verified 05/27/19 23:00 ONS cephalexin AdvReac Mild DIARRHEA Verified 05/27/19 23:00 fentanyl AdvReac Mild altered Verified 05/27/19 23:00 mental status levofloxacin AdvReac Mild DIARRHEA Verified 05/27/19 23:00 meperidine AdvReac Mild HEADACHES Verified 05/27/19 23:00 metformin AdvReac Mild DIARRHEA Verified 05/27/19 23:00 Sulfa (Sulfonamide AdvReac Mild DIARRHEA Verified 05/27/19 23:00 Antibiotics) fluoxetine AdvReac Unknown Unknown Verified 05/27/19 23:00 Past Med/Surg History Medical History Chronic gastritis HLD (hyperlipidemia) LUZMA (obstructive sleep apnea) NO DEVICE HTN (hypertension) CKD (chronic kidney disease) stage 3, GFR 30-59 ml/min Diabetes mellitus Hypothyroid 2/2 thyroidectomy Paroxysmal atrial fibrillation CURRENTLY AND SCHEDULED FOR CARDIOVERSION Anxiety Benign essential tremor Bowel perforation Depression Diverticular disease HX DIVERTICULITIS PER RECORDS GERD (gastroesophageal reflux disease) Hiatal hernia History of blood transfusion POST-OP ROBE History of palpitations Hx of intestinal obstruction 50 YEARS AGO PER RECORDS IBS (irritable bowel syndrome) Macular degeneration Obesity Osteoarthritis RLS (restless legs syndrome) Transient ischemic attack (TIA) 03/2018 Surgical History Family history of reaction to anesthesia SON-HARD TIME WAKING UP. H/O total thyroidectomy H/O: hysterectomy History of back surgery LUMBAR DISCECTOMY History of blepharoplasty History of bowel resection History of cardiac cath X2 TOTAL (10+ YEARS AGO)= NO STENTS History of herniorrhaphy VENTRAL HERNIA History of inguinal hernia repair X3 (CHILD) History of laryngoscopy REMOVAL OF POLYPS History of repair of hiatal hernia 02/2019 History of repair of rotator cuff RIGHT X3, LEFT X 1 History of tubal ligation Hx of hand surgery LUMP REMOVED FROM RIGHT HAND Previous section X3 S/P appendectomy S/P carotid endarterectomy RIGHT S/P cholecystectomy S/P lumpectomy of breast RIGHT Family History Son Family history of reaction to anesthesia SLOW TO WAKE Brother Family history of diabetes mellitus Sister Family history of diabetes mellitus Mother Family history of diabetes mellitus Uncle Family hx of colon cancer X 3 Social History Preferred Language: Tunisian Communication Ability: Effective Beliefs That Will Affect Care: None marital status: Current Living Situation: Spouse Feels Safe at Home: Yes Smoking Status: Never smoker Second Hand Exposure: No Hx Alcohol Use: No Hx Substance Use: No Review of Systems See HPI for pertinent positives & negatives. Physical Exam Vital Signs Vital Signs - 24 hr 05/27/19 21:52 05/27/19 23:07 05/27/19 23:52 Temperature 36.5 C Temperature Source Oral Sepsis Recent Fever Within 48 Hours No Sepsis New/Unexplained Change in Mental Status Yes Sepsis Action Taken by Nursing No Action Required Pulse Rate 69 Pulse Rate [Left Finger] 68 Respiratory Rate 18 20 Blood Pressure 193/76 H Blood Pressure [Right Arm] 188/79 H Blood Pressure Mean 115 Blood Pressure Mean [Right Arm] 115 Blood Pressure Position [Right Arm] Sitting Pulse Oximetry 98 98 Oxygen Delivery Method Room Air Room Air Room Air 05/28/19 00:05 05/28/19 01:30 Temperature Temperature Source Sepsis Recent Fever Within 48 Hours Sepsis New/Unexplained Change in Mental Status Sepsis Action Taken by Nursing Pulse Rate Pulse Rate [Left Finger] 65 82 Respiratory Rate 23 16 Blood Pressure Blood Pressure [Right Arm] 188/89 H 143/55 H Blood Pressure Mean Blood Pressure Mean [Right Arm] 122 84 Blood Pressure Position [Right Arm] Pulse Oximetry 95 97 Oxygen Delivery Method Room Air GENERAL: alert, well nourished, non-toxic. Sitting up in bed. Disheveled. Confused. EYE EXAM: normal conjunctiva, PERRL and EOM's grossly intact OROPHARYNX: no exudate, no erythema, lips, buccal mucosa, and tongue normal and mucous membranes are moist NECK: supple, no nuchal rigidity, no adenopathy, non-tender LUNGS: Clear to auscultation. Normal chest wall mechanics HEART: no murmurs, S1 normal and S2 normal ABDOMEN: abdomen soft, non-tender, normo-active bowel sounds, no masses, no rebound or guarding. BACK: Back is symmetrical on inspection and there is no deformity, no midline tenderness, no CVA tenderness. SKIN: no rashes and no bruising UPPER EXTREMITIES: upper extremities are grossly normal. LOWER EXTREMITIES: No pitting edema. NEURO EXAM: Not oriented to place, year, or month. Cranial nerves II-XII intact, normal speech, no weakness of arms, no weakness of legs. No drift. Finger to nose intact. Gross sensation intact. Course ED COURSE: Vital signs were reviewed and showed hypertension. The patients medical record was reviewed The above diagnostic studies were performed and reviewed. ED treatments and interventions as stated above. 2235: The patient was evaluated in room A12B. A complete history and physical examination was performed. 0027: I spoke with Dr. Archer - Neurology. He is comfortable keeping the patient in the hospital. 0030: I discussed the patient's case with Dr. Britton - [facility] Hospitalist. He will evaluate the patient for further management 0035: Upon reevaluation, the patient is getting admitted. I discussed my findings with the patient and she understands and agrees with the treatment plan. Based on the patients age, coexisting illnesses, exam and lab findings the decision to treat as an inpatient was made. The patient remained stable while under my care. The patient will be evaluated for further management. Administered Medications Discontinued Medications Sodium Chloride (Nss 1000ml) 1,000 mls @ 999 mls/hr IV .[id number] DEVORAH Stop: 05/27/19 23:45 Last Infusion: 05/28/19 01:01 Dose: 0 mls/hr Documented by: [id number] Admin: 05/28/19 00:07 Dose: 999 mls/hr Documented by: [id number] Medical Decision Making Differential Diagnosis Differential diagnoses includes but is not limited to toxic, metabolic, infectious, traumatic, cardiac, neurologic, hematologic, psychiatric and inflammatory etiologies. Medical Records Attestation: I reviewed the patient's medical records. Home Medications Current Medication List: was personally reviewed by pa Laboratory Data Attestation: I reviewed the patient's lab results. Result diagrams: 05/27/19 22:49 05/27/19 22:49 Lab Results 05/27/19 05/27/19 05/27/19 Range/Units 22:49 22:49 23:22 WBC 8.83 (4.8-10.8) K/uL RBC 3.86 L (4.2-5.4) M/uL Hgb 12.0 (12.0-16.0) g/dL Hct 36.2 L (37-47) % MCV 93.8 (80-100) fL MCH 31.1 (25-34) pg MCHC 33.1 (32-36) g/dL RDW Std Deviation 49.2 H (36.4-46.3) fL RDW Coeff of Michael 14.5 (11.5-14.5) % Plt Count 267 (130-400) K/uL MPV 10.3 (7.4-10.4) fL Immature Gran % (Auto) 0.2 % Neut % (Auto) 68.8 % Lymph % (Auto) 18.1 % Jewell % (Auto) 10.1 % Eos % (Auto) 2.6 % Baso % (Auto) 0.2 % Immature Gran # (Auto) 0.02 (0.00-0.02) K/uL Neut # (Auto) 6.07 (1.4-6.5) K/uL Lymph # (Auto) 1.60 (1.2-3.4) K/uL Jewell # (Auto) 0.89 H (0.11-0.59) K/uL Eos # (Auto) 0.23 (0-0.5) K/uL Baso # (Auto) 0.02 (0-0.2) K/uL Sodium 136 (136-145) mmol/L Potassium 4.8 (3.5-5.1) mmol/L Chloride 100 (98-107) mmol/L Carbon Dioxide 25 (21-32) mmol/L Anion Gap 11.0 (3-11) BUN 36 H (7-18) mg/dl Creatinine 1.55 H (0.6-1.2) mg/dl Est Cr Clr Drug Dosing 25.8 ml/min Est GFR ( Amer) 36.3 Est GFR (Non-Af Amer) 31.3 BUN/Creatinine Ratio 23.3 H (10-20) Glucose 234 H (70-99) mg/dl POC Glucose 235 H (70-99) Calcium 8.7 (8.5-10.1) mg/dl Total Bilirubin 0.3 (0.2-1) mg/dl AST 14 L (15-37) U/L ALT 27 (12-78) U/L Alkaline Phosphatase 111 (45-117) U/L Total Creatine Kinase 47 (26-192) U/L Troponin I < 0.015 (0-0.045) ng/ml Total Protein 7.6 (6.4-8.2) gm/dl Albumin 3.6 (3.4-5.0) gm/dl Globulin 4.0 (2.5-4.0) gm/dl Albumin/Globulin Ratio 0.9 (0.9-2) TSH 3.600 (0.300-4.500) uIu/ml Urine Color Urine Appearance (Clear) Urine pH (4.5-7.5) Ur Specific [place] (1.000-1.030) Urine Protein (Negative) Urine Glucose (UA) (Negative) Urine Ketones (Negative) Urine Blood (Negative) Urine Nitrite (Negative) Urine Bilirubin (Negative) Urine Urobilinogen (Negative) Ur Leukocyte Esterase (Negative) Urine WBC (Auto) (0-5) /hpf Urine RBC (Auto) (0-4) /hpf U Hyaline Cast (Auto) (0-5) /lpf U Epithel Cells (Auto) (0-5) /lpf Urine Bacteria (Auto) (Negative) Ur Renal Epithelial Cell (0-5) /lpf 05/28/19 Range/Units 00:06 WBC (4.8-10.8) K/uL RBC (4.2-5.4) M/uL Hgb (12.0-16.0) g/dL Hct (37-47) % MCV (80-100) fL MCH (25-34) pg MCHC (32-36) g/dL RDW Std Deviation (36.4-46.3) fL RDW Coeff of Michael (11.5-14.5) % Plt Count (130-400) K/uL MPV (7.4-10.4) fL Immature Gran % (Auto) % Neut % (Auto) % Lymph % (Auto) % Jewell % (Auto) % Eos % (Auto) % Baso % (Auto) % Immature Gran # (Auto) (0.00-0.02) K/uL Neut # (Auto) (1.4-6.5) K/uL Lymph # (Auto) (1.2-3.4) K/uL Jewell # (Auto) (0.11-0.59) K/uL Eos # (Auto) (0-0.5) K/uL Baso # (Auto) (0-0.2) K/uL Sodium (136-145) mmol/L Potassium (3.5-5.1) mmol/L Chloride (98-107) mmol/L Carbon Dioxide (21-32) mmol/L Anion Gap (3-11) BUN (7-18) mg/dl Creatinine (0.6-1.2) mg/dl Est Cr Clr Drug Dosing ml/min Est GFR ( Amer) Est GFR (Non-Af Amer) BUN/Creatinine Ratio (10-20) Glucose (70-99) mg/dl POC Glucose (70-99) Calcium (8.5-10.1) mg/dl Total Bilirubin (0.2-1) mg/dl AST (15-37) U/L ALT (12-78) U/L Alkaline Phosphatase (45-117) U/L Total Creatine Kinase (26-192) U/L Troponin I (0-0.045) ng/ml Total Protein (6.4-8.2) gm/dl Albumin (3.4-5.0) gm/dl Globulin (2.5-4.0) gm/dl Albumin/Globulin Ratio (0.9-2) TSH (0.300-4.500) uIu/ml Urine Color Yellow Urine Appearance Clear (Clear) Urine pH 5.0 (4.5-7.5) Ur Specific [place] 1.015 (1.000-1.030) Urine Protein Trace H (Negative) Urine Glucose (UA) Negative (Negative) Urine Ketones Negative (Negative) Urine Blood Trace H (Negative) Urine Nitrite Negative (Negative) Urine Bilirubin Negative (Negative) Urine Urobilinogen Negative (Negative) Ur Leukocyte Esterase 2+ H (Negative) Urine WBC (Auto) 1-5 (0-5) /hpf Urine RBC (Auto) 0-4 (0-4) /hpf U Hyaline Cast (Auto) 5-10 H (0-5) /lpf U Epithel Cells (Auto) >30 H (0-5) /lpf Urine Bacteria (Auto) Negative (Negative) Ur Renal Epithelial Cell 0-5 (0-5) /lpf Imaging Data Attestation: I personally reviewed and interpreted this imaging study as fol lows: My Impression: Chest X-Ray Portable AP Upright 1 View: No focal infiltrate, no pneumothorax. Radiologist's Impression: Radiology results as stated below per my review and the radiologist's interpretation: CH HEAD: No acute intracranial hemorrhage. Right frontal dural thickening or isodense-chronic subdural. No midline shift. Atrophy and small vessel disease. Radiologist: Montserrat Wilson M.D. Study ready at 23:52 and initial results transmitted at 23:54 ECG Data Attestation: I personally reviewed and interpreted this ECG as follows: Indication: altered mental status Rate (beats per minute): 65 Rhythm: sinus rhythm Findings: + LBBB and + left axis deviation Blood Pressure Blood Pressure Findings: Elevated blood pressure Blood Pressure Disposition: further management by hospitalist KATIE Narrative Patient is an 79-year-old female with a past medical history of CKD, diabetes, hypothyroid, hyperlipidemia, paroxysmal A. fib, and depression who presents the ER for altered mental status brought in by her . notes that she does have some mild confusion at baseline which is been present for the past several months. Recently over the past 3 days he notes that she has declined significantly and has been hallucinating and is unaware of who he is at times. Patient is not oriented to person year or month. She is oriented to self. Tanya snell is neurologically intact on exam. Labs were obtained and showed no significant leukocytosis or anemia. BMP with a mild hyperglycemia 230. No gap. LFTs troponin and TSH was unremarkable. UA with a small amount hematuria. No signs of infection. CT head with questionable chronic subdural versus dura. Discussed with neurology and they were in agreement as well as with the hospitalist for observation. was updated bedside. Impression & Plan Altered mental status, Diabetes mellitus, HTN (hypertension), Acute hypergly cemia Discharge Plan Visit Data Chief Complaint: Altered Mental Status Stated Complaint: CONFUSION, SEEING THINGS ED Provider: Toan Roman Discharge Problem: Altered mental status, Diabetes mellitus, HTN (hypertension), Acute hyperglycemia Forms Stand Alone Forms: [facility] Prescriptions Prescriptions: No Action glimepiride 2 mg tablet 2 mg PO BID Qty: 180 RF: 3 diltiazem HCl 120 mg capsule,extended release 24 hr 120 mg PO QAM Qty: 30 RF: 5 Lantus Solostar U-100 Insulin 100 unit/mL (3 mL) insulin pen 5 units SQ DAILY Qty: 15 RF: 2 rabeprazole [Aciphex] 20 mg Tablet,Delayed Release (Dr/Ec) 20 mg PO QAM RF: 0 atorvastatin 20 mg Tablet 20 mg PO QAM RF: 0 aspirin [Aspirin Low Dose] 81 mg Tablet,Delayed Release (Dr/Ec) 81 mg PO HS RF: 0 multivitamin Capsule 1 cap PO QAM RF: 0 levothyroxine 88 mcg Capsule 88 mcg PO QAM RF: 0 ascorbic acid (vitamin C) [Vitamin C] 500 mg Tablet 500 mg PO QAM RF: 0 cholecalciferol (vitamin D3) [Vitamin D3] 1,000 unit Capsule 1,000 unit PO QAM RF: 0 losartan-hydrochlorothiazide 100-25 mg Tablet 1 tab PO QAM RF: 0 metoprolol tartrate 100 mg tablet 125 mg PO BID Qty: 30 RF: 1 Eliquis 2.5 mg tablet 2.5 mg PO BID Qty: 30 RF: 1 The scribe's documentation has been prepared under my direction and personally reviewed by me in its entirety. I confirm that the note above accurately reflects all work, treatment, procedures, and medical decision making performed by me.
--- NOTE | 2019-05-28 03:04 | History & Physical Report ---
Date of Service May 28, 2019 Assessment & Plan (1) Altered mental status: Patient is an 79yo F PMH pAfib, HLD, CKD III, T2DM, hypothyroid, depression, RLS, resting tremor, chronic gastritis who presents with altered mental status. AMS -Likely multifactorial: baseline dementia, possible UTI, constipation, Recent closed-head injury with ?chronic subdural -Await urine culture, started on daily Rocephin until culture results -Scheduled miralax until BM -Await radiology read of CT; consulted neurology for CT findings -Pt euvolemic, no IVF at this time -Consulted CM for assessment of home situation. Check on neuropsych appt, pt has no family nearby, overwhelmed with increased level of care pt is requiring. pAfib -Recent cardioversion -No concerns at present -Cont eliquis, dilt, metoprolol, asa T2DM -Patient recently started on SQ insulin; has previously refused in outpatient setting -Also on glimepiride 2 BID -Notes has resting tremor and this makes it difficult to administer. - is attempting to administer, unclear if this is happening -Last A1C 8.7 in April 2019. -Placed on ISS for current stay HTN/HLD -cont home meds CKD 3, Baseline Cr 1.4-1.6 -Admission level at baseline, continue to monitor Chronic gastritis -Stable, cont home meds Hypothyroid -TSH stable -Cont home meds RLS -Cont home meds Depression -Cont home meds Tremor -Follow up as outpatient Code: Full DVTP: elimerritt Dispo: admit to med/surg under obs (2) Paroxysmal atrial fibrillation: (3) Diabetes mellitus: (4) CKD (chronic kidney disease) stage 3, GFR 30-59 ml/min: (5) HTN (hypertension): (6) HLD (hyperlipidemia): (7) Hypothyroid: (8) Tremor: (9) RLS (restless legs syndrome): (10) Depression: (11) CHI (closed head injury): History of Present Illness Chief Complaint: AMS Primary Care Provider: Jack Holloway MD Patient is an 79yo F PMH pAfib, HLD, CKD III, T2DM, hypothyroid, depression, RLS, resting tremor, chronic gastritis who presents with altered mental status. She presents with her , who provides the history. He notes that this has been a new issue for her in the past several months, but in the last 3 days things have gotten acutely worse, citing that she thinks she is talking to her mother (), thinks she has company over, doesn't always recognize her . notes that she was recently treated for a UTI and was told by PCP it had cleared up. She has also been recently treated for a yeast infection, has been started on a new medication (injection) for her diabetes, and has not had a bowel movement for 3-4 days. He notes she recently fell at home a few weeks ago and hit her head but had no LOC. On ROS, patient notes shaky hands, lightheadedness on standing, L-sided headaches, abdominal discomfort, decreased appetite/poor food intake with good water intake, and frequency of urination but denies dysuria or hematuria. states that her doctors think she has a neurological problem and was being sent to a neurologist but has not seen them yet. He denies being familiar with possible dementia diagnosis. ER course: CBC, grossly CMP normal for patient, normal TSH, negative trop. UA dirty with +blood/leuk esterase. CT head with statrad read revealed R frontal dural thickening or isodense-chronic subdural hematoma. Chart review shows recent visit to PCP, where they discussed neuropsych testing for dementia. given resources for assistance at home. Recent admit 05/10- 05/12 for AMS, though to be from UTI/dehydration/TIA/dementia. Recent ablation for afib. Allergies Allergy/AdvReac Type Severity Reaction Status Date / Time adhesive Allergy Mild red/blistered Verified 05/27/19 23:00 skin latex Allergy Mild CONTACT Verified 05/27/19 23:00 DERMATITIS carvedilol Allergy Unknown pt unsure, Verified 05/27/19 23:00 listed prior acetaminophen [From Percocet] Allergy Unknown Verified 05/27/19 23:00 gabapentin Allergy Unknown Verified 05/27/19 23:00 ranitidine [From Zantac] Allergy Unknown Verified 05/27/19 23:00 omeprazole AdvReac Intermediate HALLUCINATI Verified 05/27/19 23:00 ONS oxycodone AdvReac Intermediate itching Verified 05/27/19 23:00 phenobarbital AdvReac Intermediate HALLUCINATI Verified 05/27/19 23:00 ONS cephalexin AdvReac Mild DIARRHEA Verified 05/27/19 23:00 fentanyl AdvReac Mild altered Verified 05/27/19 23:00 mental status levofloxacin AdvReac Mild DIARRHEA Verified 05/27/19 23:00 meperidine AdvReac Mild HEADACHES Verified 05/27/19 23:00 metformin AdvReac Mild DIARRHEA Verified 05/27/19 23:00 Sulfa (Sulfonamide AdvReac Mild DIARRHEA Verified 05/27/19 23:00 Antibiotics) fluoxetine AdvReac Unknown Unknown Verified 05/27/19 23:00 Home Medications Home Medications Medication Instructions Recorded Confirmed Type aspirin [Aspirin Low Dose] 81 mg PO HS 07/21/18 05/27/19 History atorvastatin 20 mg PO QAM 07/21/18 05/27/19 History levothyroxine 88 mcg PO QAM 07/21/18 05/27/19 History multivitamin 1 cap PO QAM 07/21/18 05/27/19 History rabeprazole [Aciphex] 20 mg PO QAM 07/21/18 05/27/19 History ascorbic acid (vitamin C) [Vitamin 500 mg PO QAM 02/23/19 05/27/19 History C] cholecalciferol (vitamin D3) 1,000 unit PO QAM 02/23/19 05/27/19 History [Vitamin D3] losartan-hydrochlorothiazide 1 tab PO QAM 03/01/19 05/27/19 History Eliquis 2.5 mg PO BID #30 tab 03/26/19 05/27/19 Rx metoprolol tartrate 125 mg PO BID #30 tab 03/26/19 05/27/19 Rx glimepiride 2 mg tablet 2 mg PO BID #180 tab 04/26/19 05/27/19 Rx diltiazem ER 120 mg capsule,24 120 mg PO QAM #30 cap 05/23/19 05/27/19 Rx hr,extended release insulin glargine (U-100) 100 5 units SQ DAILY #15 ml 05/24/19 05/27/19 Rx unit/mL (3 mL) subcutaneous pen Past Med/Surg History Medical History Chronic gastritis HLD (hyperlipidemia) LUZMA (obstructive sleep apnea) NO DEVICE HTN (hypertension) (Acute) CKD (chronic kidney disease) stage 3, GFR 30-59 ml/min Diabetes mellitus (Acute) Hypothyroid 2/2 thyroidectomy Paroxysmal atrial fibrillation CURRENTLY AND SCHEDULED FOR CARDIOVERSION Anxiety Benign essential tremor Bowel perforation Depression Diverticular disease HX DIVERTICULITIS PER RECORDS GERD (gastroesophageal reflux disease) Hiatal hernia History of blood transfusion POST-OP ROBE History of palpitations Hx of intestinal obstruction 50 YEARS AGO PER RECORDS IBS (irritable bowel syndrome) Macular degeneration Obesity Osteoarthritis RLS (restless legs syndrome) Transient ischemic attack (TIA) 03/2018 Surgical History Family history of reaction to anesthesia SON-HARD TIME WAKING UP. H/O total thyroidectomy H/O: hysterectomy History of back surgery LUMBAR DISCECTOMY History of blepharoplasty History of bowel resection History of cardiac cath X2 TOTAL (10+ YEARS AGO)= NO STENTS History of herniorrhaphy VENTRAL HERNIA History of inguinal hernia repair X3 (CHILD) History of laryngoscopy REMOVAL OF POLYPS History of repair of hiatal hernia 02/2019 History of repair of rotator cuff RIGHT X3, LEFT X 1 History of tubal ligation Hx of hand surgery LUMP REMOVED FROM RIGHT HAND Previous section X3 S/P appendectomy S/P carotid endarterectomy RIGHT S/P cholecystectomy S/P lumpectomy of breast RIGHT Family History Son Family history of reaction to anesthesia SLOW TO WAKE Brother Family history of diabetes mellitus Sister Family history of diabetes mellitus Mother Family history of diabetes mellitus Uncle Family hx of colon cancer X 3 Social History Preferred Language: Palestinian Communication Ability: Effective Beliefs That Will Affect Care: None marital status: Current Living Situation: Spouse Feels Safe at Home: Yes Smoking Status: Never smoker Second Hand Exposure: No Hx Alcohol Use: No Hx Substance Use: No Review of Systems Review of Systems: All systems reviewed & are unremarkable except as noted in HPI & below Constitutional: + sweats (noted for several months) and + anorexia; no fever Respiratory: no cough and no dyspnea Cardiovascular: + lightheadedness; no chest pain, no radiating jaw, neck or arm pain and no edema Gastrointestinal: + abdominal pain and + constipation; no nausea and no vomiting Genitourinary: + urinary frequency Musculoskeletal: + myalgia (leg pain bilat) Neurologic: + falls, + restless legs, + confusion and + memory loss Psychiatric: + hallucinations Physical Exam Constitutional: WD/WN, vitals as above + well hydrated, average body habitus, + frail appearing and cooperative; no acute distress and not diaphoretic Eyes: PERRL, conjunctivae normal, anicteric sclerae ENMT: external ear and nose normal, oropharynx normal Neck: normal visual inspection Respiratory: normal respiratory effort, lungs clear to auscultation Cardiovascular: RRR, no murmur, no edema Gastrointestinal (Abdomen): normal bowel sounds, soft, nontender, no hepatosplenomegaly Skin: no rashes, warm and dry normal turgor Neurologic: PERRL, EOMI, accommodation nl, no face palsy, no dysarthria Psychiatric: Orientation: alert, oriented to person and oriented to place; + not oriented to time Affect: + anxious affect Thought Process: + circumstantial thought process Results & Data Vital Signs (Past 12 Hours) Vital Signs Temp Pulse Pulse Resp BP BP Pulse Ox 05/28/19 02:31 86 18 157/88 H 95 05/28/19 01:30 82 16 143/55 H 97 05/28/19 00:05 65 23 188/89 H 95 05/27/19 23:52 68 20 188/79 H 98 05/27/19 21:52 36.5 C 69 18 193/76 H 98 Laboratory Results 05/28/19 05/27/19 05/27/19 Range/Units 00:06 23:22 22:49 WBC (4.8-10.8) K/uL RBC (4.2-5.4) M/uL Hgb (12.0-16.0) g/dL Hct (37-47) % MCV (80-100) fL MCH (25-34) pg MCHC (32-36) g/dL RDW Std Deviation (36.4-46.3) fL RDW Coeff of Michael (11.5-14.5) % Plt Count (130-400) K/uL MPV (7.4-10.4) fL Immature Gran % (Auto) % Neut % (Auto) % Lymph % (Auto) % [place] % (Auto) % Eos % (Auto) % Baso % (Auto) % Immature Gran # (Auto) (0.00-0.02) K/uL Neut # (Auto) (1.4-6.5) K/uL Lymph # (Auto) (1.2-3.4) K/uL [place] # (Auto) (0.11-0.59) K/uL Eos # (Auto) (0-0.5) K/uL Baso # (Auto) (0-0.2) K/uL Sodium 136 (136-145) mmol/L Potassium 4.8 (3.5-5.1) mmol/L Chloride 100 (98-107) mmol/L Carbon Dioxide 25 (21-32) mmol/L Anion Gap 11.0 (3-11) BUN 36 H (7-18) mg/dl Creatinine 1.55 H (0.6-1.2) mg/dl Est Cr Clr Drug Dosing 25.8 ml/min Est GFR ( Amer) 36.3 Est GFR (Non-Af Amer) 31.3 BUN/Creatinine Ratio 23.3 H (10-20) Glucose 234 H (70-99) mg/dl POC Glucose 235 H (70-99) Calcium 8.7 (8.5-10.1) mg/dl Total Bilirubin 0.3 (0.2-1) mg/dl AST 14 L (15-37) U/L ALT 27 (12-78) U/L Alkaline Phosphatase 111 (45-117) U/L Total Creatine Kinase 47 (26-192) U/L Troponin I < 0.015 (0-0.045) ng/ml Total Protein 7.6 (6.4-8.2) gm/dl Albumin 3.6 (3.4-5.0) gm/dl Globulin 4.0 (2.5-4.0) gm/dl Albumin/Globulin Ratio 0.9 (0.9-2) TSH 3.600 (0.300-4.500) uIu/ml Urine Color Yellow Urine Appearance Clear (Clear) Urine pH 5.0 (4.5-7.5) Ur Specific [place] 1.015 (1.000-1.030) Urine Protein Trace H (Negative) Urine Glucose (UA) Negative (Negative) Urine Ketones Negative (Negative) Urine Blood Trace H (Negative) Urine Nitrite Negative (Negative) Urine Bilirubin Negative (Negative) Urine Urobilinogen Negative (Negative) Ur Leukocyte Esterase 2+ H (Negative) Urine WBC (Auto) 1-5 (0-5) /hpf Urine RBC (Auto) 0-4 (0-4) /hpf U Hyaline Cast (Auto) 5-10 H (0-5) /lpf U Epithel Cells (Auto) >30 H (0-5) /lpf Urine Bacteria (Auto) Negative (Negative) Ur Renal Epithelial Cell 0-5 (0-5) /lpf 05/27/19 Range/Units 22:49 WBC 8.83 (4.8-10.8) K/uL RBC 3.86 L (4.2-5.4) M/uL Hgb 12.0 (12.0-16.0) g/dL Hct 36.2 L (37-47) % MCV 93.8 (80-100) fL MCH 31.1 (25-34) pg MCHC 33.1 (32-36) g/dL RDW Std Deviation 49.2 H (36.4-46.3) fL RDW Coeff of Michael 14.5 (11.5-14.5) % Plt Count 267 (130-400) K/uL MPV 10.3 (7.4-10.4) fL Immature Gran % (Auto) 0.2 % Neut % (Auto) 68.8 % Lymph % (Auto) 18.1 % [place] % (Auto) 10.1 % Eos % (Auto) 2.6 % Baso % (Auto) 0.2 % Immature Gran # (Auto) 0.02 (0.00-0.02) K/uL Neut # (Auto) 6.07 (1.4-6.5) K/uL Lymph # (Auto) 1.60 (1.2-3.4) K/uL [place] # (Auto) 0.89 H (0.11-0.59) K/uL Eos # (Auto) 0.23 (0-0.5) K/uL Baso # (Auto) 0.02 (0-0.2) K/uL Sodium (136-145) mmol/L Potassium (3.5-5.1) mmol/L Chloride (98-107) mmol/L Carbon Dioxide (21-32) mmol/L Anion Gap (3-11) BUN (7-18) mg/dl Creatinine (0.6-1.2) mg/dl Est Cr Clr Drug Dosing ml/min Est GFR ( Amer) Est GFR (Non-Af Amer) BUN/Creatinine Ratio (10-20) Glucose (70-99) mg/dl POC Glucose (70-99) Calcium (8.5-10.1) mg/dl Total Bilirubin (0.2-1) mg/dl AST (15-37) U/L ALT (12-78) U/L Alkaline Phosphatase (45-117) U/L Total Creatine Kinase (26-192) U/L Troponin I (0-0.045) ng/ml Total Protein (6.4-8.2) gm/dl Albumin (3.4-5.0) gm/dl Globulin (2.5-4.0) gm/dl Albumin/Globulin Ratio (0.9-2) TSH (0.300-4.500) uIu/ml Urine Color Urine Appearance (Clear) Urine pH (4.5-7.5) Ur Specific [place] (1.000-1.030) Urine Protein (Negative) Urine Glucose (UA) (Negative) Urine Ketones (Negative) Urine Blood (Negative) Urine Nitrite (Negative) Urine Bilirubin (Negative) Urine Urobilinogen (Negative) Ur Leukocyte Esterase (Negative) Urine WBC (Auto) (0-5) /hpf Urine RBC (Auto) (0-4) /hpf U Hyaline Cast (Auto) (0-5) /lpf U Epithel Cells (Auto) (0-5) /lpf Urine Bacteria (Auto) (Negative) Ur Renal Epithelial Cell (0-5) /lpf Supervising Physician Co-Signing Physician Notes Attending addendum: I have physically seen this patient, have supervised the medical residents activities, and agree with the H&P unless as otherwise noted. Assessment and Plan: Altered mental status/acute on chronic- Multiple etiologies: Dementia with agitation at baseline due to UTI, constipation, ongoing issues with chronic subdural associated closed head injury. CT pending. Consult neurology. Follow urine culture and sensitivity. Empiric ceftriaxone. Consult social service assistant regarding assessment of safety of home situation as her may not be able to take care of her to the extent that he needs to and wants to. Remaining orders and notations as noted. PG Care Time/CCT Total # of Minutes Spent Total Time Spent with Patient: Total time spent is greater than 50% in coordination of care (as documented) at patient's floor/unit and/or counseling patient: Resident Activity Tracking Resident Involvement: Resident Care Provided Care Provided: Adult Hospital Medicine (1) Diabetes mellitus Diabetes mellitus complication status: with other specified complication Diabetes mellitus manager long term care insulin use: unspecified mcfp insulin use status Diabetes mellitus type: other specified (including CHARMAINE) Qualified Code(s): E13.69 - Other specified diabetes mellitus with other specified complication (2) CHI (closed head injury) Encounter type: initial encounter Qualified Code(s): S09.90XA - Unspecified injury of head, initial encounter (3) Altered mental status Altered mental status type: unspecified Qualified Code(s): R41.82 - Altered mental status, unspecified (4) HTN (hypertension) Hypertension type: unspecified Qualified Code(s): I10 - Essential (primary) hypertension
[2019-05-28] MEDS ORDERED: DC ALL PREVIOUSLY ORDERED DIABETES MEDS ONE (03:15)
[2019-05-28] MEDS ORDERED: ALUMINUM/MAGNESIUM SUSP 30 ML UDC PO PRN (03:15)
[2019-05-28] MEDS ORDERED: GLUCOSE 10 TABS/TUBE PO PRN (03:15)
[2019-05-28] MEDS ORDERED: DEXTROSE 50% 50 ML SYRINGE IV PRN (03:15)
[2019-05-28] MEDS ORDERED: GLUCOSE 40% GEL 15 GM TUBE PO PRN (03:15)
[2019-05-28] MEDS ORDERED: GLUCAGON FOR INJ 1 MG VIAL SQ PRN (03:15)
[2019-05-28] MEDS ORDERED: ONDANSETRON INJ 2 MG/ML 2 ML VIAL IV PRN (03:15)
[2019-05-28] MEDS ORDERED: CARBOHYDRATES FOR HYPOGLYCEMIA PO PRN (03:15)
[2019-05-28] MEDS ORDERED: MAGNESIUM HYDROXIDE SUSP 30 ML UDC PO PRN (03:15)
[2019-05-28] MEDS ORDERED: cefTRIAXone SODIUM 1,000 MG in DEXTROSE 5% 50 ML IV SCH (04:00)
--- NOTE | 2019-05-28 05:30 | XRay Report ---
XR chest 1V portable CLINICAL HISTORY: 79 years-old Female presenting with weakness. TECHNIQUE: Portable upright AP view of the chest was obtained. COMPARISON: 05/10/2019. FINDINGS: Atherosclerosis of the aortic arch. Cardiac silhouette enlarged. No focal opacity. No large effusion or pneumothorax. Degenerative changes of the thoracic spine. [place] noted in the left neural head. Bi lateral distal clavicular erosion on a chronic basis suspected versus chronic AC joint widening. Uppe r abdomen normal. IMPRESSION: 1. Cardiomegaly. No other convincing evidence of acute cardiopulmonary disease. Electronically signed by: George Conklin M.D. 05/28/2019 5:29 AM
[2019-05-28] MEDS: LEVOTHYROXINE SODIUM 88 MCG TABLET PO SCH (05:35)
--- NOTE | 2019-05-28 05:45 | CT Scan Report ---
CT head/brain wo con CLINICAL HISTORY: 79 years-old Female presenting with ams. TECHNIQUE: Multidetector CT imaging of the head was performed without the use of intravenous contrast . IV contrast: None. One or more dose lowering techniques were used consistent with the principles of ALARA (as low as reasonably achievable), including automatic exposure control, mA or kV adjustment t o individual patient size, and/or use of iterative reconstruction. COMPARISON: 05/18/2019. CT DOSE (mGy.cm): The estimated cumulative dose is 844.62 mGy.cm. FINDINGS: Institute Director topogram: Unremarkable. Proportional ventricular and sulcal prominence, likely age-related parenchymal volume loss. No hemorr afshan. Periventricular and subcortical white matter hypoattenuation, nonspecific but likely indicative of chronic small vessel ischemic change. No acute territorial infarct. No mass effect or midline geronimo ft. 4 mm isodense extra-axial crescentic fluid collection along the right cerebral convexity new from prior. Paranasal sinuses and mastoid air cells clear. Calvarium intact. IMPRESSION: 1. Small subdural hematoma along the right frontal convexity with minimal subjacent mass effect. The density of the hematoma would be suggestive of a subacute to chronic time course, although this is n ew from the prior CT on 05/18/2019 and presumably acute. This suggests underlying coagulopathy. 2. Chronic small vessel ischemic change. Electronically signed by: George Conklin M.D. 05/28/2019 5:44 AM
[2019-05-28 06:23] LABS: Basophils # (auto) 0.02 K/uL (0-0.2); Basophils % (auto) 0.2 %; Eosinophils # (auto) 0.22 K/uL (0-0.5); Eosinophils % (auto) 2.3 %; Hematocrit (blood only) 33.5 % (37-47); Hemoglobin 11.2 g/dL (12.0-16.0); Immature Granulocytes # (auto) 0.02 K/uL (0.00-0.02); Immature Granulocytes % (auto) 0.2 %; Lymphocytes # (auto) 1.72 K/uL (1.2-3.4); Lymphocytes % (auto) 18.1 %; Mean Corpuscular Hgb Conc 33.4 g/dL (32-36); Mean Corpuscular Volume 93.1 fL (80-100); Mean Platelet Volume 10.1 fL (7.4-10.4); Monocytes % (auto) 11.6 %; Neutrophils % (auto) 67.6 %; Platelet Count 243 K/uL (130-400); RDW Coefficient of Variation 14.4 % (11.5-14.5); RDW Standard Deviation 49.7 fL (36.4-46.3); White Blood Count 9.48 K/uL (4.8-10.8)
[2019-05-28 06:55] LABS: Calcium 8.4 mg/dl (8.5-10.1); Creatinine Clr Calc Pharmacy 32.6 ml/min; Est GFR (African American) 46.6; Est GFR (Non-African American) 40.2; Potassium 4.3 mmol/L (3.5-5.1)
[2019-05-28] MEDS ORDERED: RABEPRAZOLE 20 MG PO SCH (09:00)
[2019-05-28] MEDS ORDERED: LEVOTHYROXINE 88 MCG PO SCH (09:00)
[2019-05-28] MEDS ORDERED: METOPROLOL TARTRATE 100 MG TAB PO SCH (09:00)
[2019-05-28] MEDS ORDERED: APIXABAN 2.5 MG TAB PO SCH (09:00)
[2019-05-28] MEDS: dilTIAZem ER 120 MG CAPCR PO SCH (09:02)
[2019-05-28] MEDS: ATORVASTATIN 20 MG TAB PO SCH (09:02)
[2019-05-28] MEDS: METOPROLOL TARTRATE 50 MG TAB PO SCH ×2 (09:02→21:52)
[2019-05-28] MEDS: LOSARTAN/HCTZ 50/12.5MG TAB PO SCH (09:02)
[2019-05-28] MEDS: POLYETHYLENE (MIRALAX) 17 GM PACK PO SCH (09:03)
[2019-05-28] MEDS: INSULIN GLARGINE SOLOSTAR 100 UNITS/ML 3 ML PEN SC SCH ×2 (09:03→21:55)
[2019-05-28] MEDS: PANTOprazole 40 MG TAB PO SCH (09:03)
[2019-05-28] MEDS: INSULIN ASPART 100 UNITS/ML 3 ML PEN SC SCH ×4 (09:05→21:54)
--- NOTE | 2019-05-28 09:29 | Neurology Consultation ---
Date of Consultation May 28, 2019 Assessment & Plan (1) Subdural hematoma: Right convexity subdural hematoma which appears to be acute or subacute, likely related to her fall that occurred 10 days ago. She is anticoagulated in light of her history of atrial fibrillation. I discussed this case with Dr. Swartz, and her nurse at bedside this morning. Her Eliquis will need to be held. She will need a repeat CT of the head completed this afternoon. Given her subacute confusion and headache however, I would have a low threshold to transfer this patient to a tertiary center with neurosurgical back-up. If the subdural hematoma is stable it may be appropriate for her to remain at [facility]. If she does remain at [facility] overnight then I would recommend a follow-up CT of the head tomorrow morning as well and possibly a brain MRI. There is no clinical indication that she has been having seizure activity and I would hold off on obtaining an EEG at this time. (2) Altered mental status: Altered mental status, likely acute on chronic problem. I suspect an element of baseline dementia, although with subacute progression over the past 3 days likely due to her recent fall, suspected concussion, and interval development of a small right convexity subdural hematoma as described above. I would not recommend starting any specific treatment for dementia at this time. Outpatient neuropsychological testing should be completed. (3) Tremor: History of a chronic bilateral upper extremity postural and action tremor, probably benign essential tremor for which I evaluated this patient back in December. She did not tolerate a brief trial of a low-dose of primidone. Further medication trials were not recommended. She is already prescribed metoprolol in light of her history of atrial fibrillation. This medication likely provide some tremor dampening effect. I would not pursue additional treatments for her tremor at this time. Present on Admission?: Yes History of Present Illness Reason for Consultation: Confusion, abnormal CT head Requesting Physician: Twyla Adam MD Attending Physician: Jimy Ortega History of Present Illness The patient is an 79-year-old female with a chief complaint of worsening confusion for the past 3 days with associated frontal headache. She has been forgetful, disoriented, and reportedly hallucinating. There have also been some issues with her blood sugar control recently. Past medical history notable for atrial fibrillation for which she is anticoagulated. She was evaluated in our emergency department on May 18, 2019 complaining of dysuria. She had reportedly fallen earlier that day as well and was complaining of a left-sided headache. A CT of the head at that time was negative for hemorrhage or acute process. A repeat CT of the head was completed last night, while she was in the emergency department. Per the interpreting radiologist overnight (stat RAD) there was evidence of a chronic appearing right frontal subdural collection. However, per the final read of the study, by our in-house radiologist, this finding was not present on her previous CT of the head done on May 18, 2019 and would therefore be more consistent with an acute process. The subdural collection measures about 4 mm along the right cerebral convexity. There is no mass-effect or midline shift. I reviewed the images and both radiologist's interpretation of the study. I agree that the finding is more likely acute as it was not clearly present on the previous CT of the head done on May 18, 2019. This patient's past medical history is also notable for benign essential tremor for which I evaluated this patient in the outpatient clinic this past December. I had recommended a trial of a low-dose of primidone. She did not tolerate this medication and it was discontinued after a few days. I have not seen her for a follow-up visit. Allergies Allergy/AdvReac Type Severity Reaction Status Date / Time adhesive Allergy Mild red/blistered Verified 05/27/19 23:00 skin latex Allergy Mild CONTACT Verified 05/27/19 23:00 DERMATITIS carvedilol Allergy Unknown pt unsure, Verified 05/27/19 23:00 listed prior acetaminophen [From Percocet] Allergy Unknown Verified 05/27/19 23:00 gabapentin Allergy Unknown Verified 05/27/19 23:00 ranitidine [From Zantac] Allergy Unknown Verified 05/27/19 23:00 omeprazole AdvReac Intermediate HALLUCINATI Verified 05/27/19 23:00 ONS oxycodone AdvReac Intermediate itching Verified 05/27/19 23:00 phenobarbital AdvReac Intermediate HALLUCINATI Verified 05/27/19 23:00 ONS cephalexin AdvReac Mild DIARRHEA Verified 05/27/19 23:00 fentanyl AdvReac Mild altered Verified 05/27/19 23:00 mental status levofloxacin AdvReac Mild DIARRHEA Verified 05/27/19 23:00 meperidine AdvReac Mild HEADACHES Verified 05/27/19 23:00 metformin AdvReac Mild DIARRHEA Verified 05/27/19 23:00 Sulfa (Sulfonamide AdvReac Mild DIARRHEA Verified 05/27/19 23:00 Antibiotics) fluoxetine AdvReac Unknown Unknown Verified 05/27/19 23:00 Home Medications Home Medications Medication Instructions Recorded Confirmed Type aspirin [Aspirin Low Dose] 81 mg PO HS 07/21/18 05/27/19 History atorvastatin 20 mg PO QAM 07/21/18 05/27/19 History levothyroxine 88 mcg PO QAM 07/21/18 05/27/19 History multivitamin 1 cap PO QAM 07/21/18 05/27/19 History rabeprazole [Aciphex] 20 mg PO QAM 07/21/18 05/27/19 History ascorbic acid (vitamin C) [Vitamin 500 mg PO QAM 02/23/19 05/27/19 History C] cholecalciferol (vitamin D3) 1,000 unit PO QAM 02/23/19 05/27/19 History [Vitamin D3] losartan-hydrochlorothiazide 1 tab PO QAM 03/01/19 05/27/19 History Eliquis 2.5 mg PO BID #30 tab 03/26/19 05/27/19 Rx metoprolol tartrate 125 mg PO BID #30 tab 03/26/19 05/27/19 Rx glimepiride 2 mg tablet 2 mg PO BID #180 tab 04/26/19 05/27/19 Rx diltiazem ER 120 mg capsule,24 120 mg PO QAM #30 cap 05/23/19 05/27/19 Rx hr,extended release insulin glargine (U-100) 100 5 units SQ DAILY #15 ml 05/24/19 05/27/19 Rx unit/mL (3 mL) subcutaneous pen Patient History Medical History Chronic gastritis HLD (hyperlipidemia) LUZMA (obstructive sleep apnea) NO DEVICE HTN (hypertension) (Acute) CKD (chronic kidney disease) stage 3, GFR 30-59 ml/min Diabetes mellitus (Acute) Hypothyroid 2/2 thyroidectomy Paroxysmal atrial fibrillation CURRENTLY AND SCHEDULED FOR CARDIOVERSION Anxiety Benign essential tremor Bowel perforation Depression Diverticular disease HX DIVERTICULITIS PER RECORDS GERD (gastroesophageal reflux disease) Hiatal hernia History of blood transfusion POST-OP ROBE History of palpitations Hx of intestinal obstruction 50 YEARS AGO PER RECORDS IBS (irritable bowel syndrome) Macular degeneration Obesity Osteoarthritis RLS (restless legs syndrome) Transient ischemic attack (TIA) 03/2018 Surgical History Family history of reaction to anesthesia SON-HARD TIME WAKING UP. H/O total thyroidectomy H/O: hysterectomy History of back surgery LUMBAR DISCECTOMY History of blepharoplasty History of bowel resection History of cardiac cath X2 TOTAL (10+ YEARS AGO)= NO STENTS History of herniorrhaphy VENTRAL HERNIA History of inguinal hernia repair X3 (CHILD) History of laryngoscopy REMOVAL OF POLYPS History of repair of hiatal hernia 02/2019 History of repair of rotator cuff RIGHT X3, LEFT X 1 History of tubal ligation Hx of hand surgery LUMP REMOVED FROM RIGHT HAND Previous section X3 S/P appendectomy S/P carotid endarterectomy RIGHT S/P cholecystectomy S/P lumpectomy of breast RIGHT Family History Son Family history of reaction to anesthesia SLOW TO WAKE Brother Family history of diabetes mellitus Sister Family history of diabetes mellitus Mother Family history of diabetes mellitus Uncle Family hx of colon cancer X 3 Social History Preferred Language: Korean Communication Ability: Impaired Beliefs That Will Affect Care: None marital status: Current Living Situation: Spouse Other Information That Helps Us Care for You: No Feels Safe at Home: Yes Safety Concerns: Feels Safe At This Time Smoking Status: Never smoker Second Hand Exposure: No Hx Alcohol Use: No Hx Substance Use: No Review of Systems Constitutional: no fever and no chills Eyes: no blind spots and no diplopia Ear, Nose, Mouth, Throat: no hearing loss Respiratory: no cough and no dyspnea Cardiovascular: no chest pain and no palpitations Gastrointestinal: no vomiting Genitourinary: no dysuria Musculoskeletal: no myalgia Integumentary: no rash and no lesions Neurologic: as per Subjective / HPI, + tremor(s), + headache(s) and + confusion Psychiatric: no depression and no anxiety Hematologic / Lymphatic: no easy bleeding Physical Exam Physical Exam: The patient is a well-developed, well-nourished elderly female. She is alert and oriented to person and place only. Recent memory mildly im paired, concentration mildly impaired. Attention normal. Patient able to name objects and repeat phrases. Patient exhibits an age-appropriate fund of knowledge and normal comprehension of vocabulary. Visual murphy full to confrontation. Visual acuity normal. Pupils equal round react to light and accommodation. Eye movements normal. There is no nystagmus or gaze preference. Facial sensation intact. There is no facial droop or weakness. Hearing intact. Palate elevates to midline. Shoulder shrug intact. Tongue protrudes to midline. Sensation intact all modalities in all 4 limbs. Deep tendon reflexes are diminished throughout. Plantar responses silent bilaterally. There is no dysdiadochokinesia or dysmetria [id number] or [id number] bilaterally. Ophthalmoscopic examination reveals normal-appearing optic disks and posterior segments. No papilledema or hemorrhages. Carotid pulses normal bilaterally, no bruits to auscultation. Gait and station not tested due to safe ty concerns. Patient exhibits normal muscle strength and tone for all 4 limbs. No atrophy. Patient exhibits a bilateral upper extremity postural and action tremor. No resting tremor. Results & Data Vital Signs (Past 12 Hours) Vital Signs Temp Pulse Pulse Resp BP BP Pulse Ox 05/28/19 08:40 36.7 C 77 19 158/69 H 93 05/28/19 04:19 36.5 C 88 18 153/80 H 99 05/28/19 02:31 86 18 157/88 H 95 05/28/19 01:30 82 16 143/55 H 97 05/28/19 00:05 65 23 188/89 H 95 05/27/19 23:52 68 20 188/79 H 98 05/27/19 21:52 36.5 C 69 18 193/76 H 98 Laboratory Results Recently completed labs reviewed. WBC 9.48, hemoglobin 11.2, hematocrit 33.5, platelet count 243, sodium 138, potassium 4.3, BUN 30, creatinine 1.26, glucose 196, calcium 8.4, transaminases normal, TSH 3.[address] of the head completed last night in the emergency department reveals a small acute subdural hematoma measuring about 4 mm in thickness overlying the right cerebral convexity without associated mass-effect or shift. Images and report reviewed and as described in the history of present illness. There is also age-related atrophy and chronic small vessel ischemic disease. A CT of the head completed May 18, 2019 for headache occurring after a fall was negative for hemorrhage or acute process or obvious evidence of a subdural hematoma at that time. Images and report reviewed. A brain MRI completed May 11, 2019 for change in mental status was negative for acute process. The study revealed chronic age-related atrophy and chronic microvascular ischemic disease. Images and report reviewed. Electrocardiogram completed May 27, 2019 revealed a sinus rhythm with fusion complexes, 65 bpm. (1) Altered mental status Altered mental status type: unspecified Qualified Code(s): R41.82 - Altered mental status, unspecified
--- NOTE | 2019-05-28 10:48 | Family Medicine Progress Note ---
Date of Service May 28, 2019 Assessment & Plan (1) Altered mental status: Patient is an 79yo F PMH pAfib, HLD, CKD III, T2DM, hypothyroid, depression, RLS, resting tremor, chronic gastritis who presents with altered mental status. AMS -Likely baseline dementia at neuro baseline but now with new onset 4mm subdural hematoma following a recent closed-head injury that might be slow bleed or resolving from closed head injury in the setting of her being on anti-coagu lation. Will continue holding Eliquis and ASA. Spouse is aware that holding anti-coagulation puts her at risk for cardiac thrombus and CVA, but needed to prevent from rapid brain bleed. -Had a dirty UA, was started on daily Rocephin. Will D/C Rocephin as no evidence of UTI. No prior UTI recent positive cultures. -Scheduled miralax until BM -Neuro was consulted on admission and this AM recommended transfer to tertiary care center with neurosurg backup incase of surgical intervention if bleed increases; this was discussed with spouse who agreed for transfer. While a repeat head CT was being performed[facility] The repeat head CT resulted and showed the subdural hematoma decreased from 4mm to 3mm. [facility] neurosurgeon did not think there was indication for transfer since appears hematoma is resolving based on head CT. Will continue to monitor patient clinically and will follow Neurology's recs of repeat imaging tomorrow. -Pt euvolemic, no IVF at this time, tolerating PO fluids -Consulted CM for assessment of home situation. Check on neuropsych appt, pt has no family nearby, overwhelmed with increased level of care pt is requiring. -UA was contaminated with epithelial cells and not able to determine infection from study -There appears to be underlying dementia. Patient was given prior referral appointment to neuropsych for investigation. She was becoming agitated on the floor and required Haldol 2.5mg one time dose after discussion for appropriate dosage with pharmacy. pAfib -Recent cardioversion -No concerns at present -Cont dilt, metoprolol -Appears NSR this AM on exam -Holding Eliquis, asa -Transfer order placed to med-surg/telemetry. Telemetry is needed since now holding anti-coagulation for pAF. T2DM -Patient recently started on SQ insulin; has previously refused in outpatient setting -Also on glimepiride 2 BID. unsure of effectiveness of her pancreas ability to produce insulin and this effectiveness of this medication -Notes has resting tremor and this makes it difficult to administer. - is attempting to administer, unclear if this is happening -Last A1C 8.7 in April 2019. -Placed on ISS for current stay HTN/HLD -cont home meds CKD 3, Baseline Cr 1.4-1.6 -Admission level at baseline, continue to monitor Chronic gastritis -Stable, cont home meds Hypothyroid -TSH stable -Cont home meds RLS -Cont home meds Depression -Cont home meds Tremor -Follow up as outpatient Code: Full DVTP: kody - holding bc of findings from CT scan Dispo: admit to med/surg under obs (2) Paroxysmal atrial fibrillation: (3) Diabetes mellitus: (4) CKD (chronic kidney disease) stage 3, GFR 30-59 ml/min: (5) HTN (hypertension): (6) HLD (hyperlipidemia): (7) Hypothyroid: (8) Tremor: (9) RLS (restless legs syndrome): (10) Depression: (11) CHI (closed head injury): Supervising Physician Co-Signing Physician Notes I interviewed and examined the patient. Discussed with Dr. Crawford and agree with findings and plan as documented in the note. Any exceptions or clarifications are listed here: None Subjective Caveat: History limited by AMS/Dementia. Margaret only complaint this morning is ongoing intermittent frontal headache. She notes no headache this morning. Denies chest pain, shortness of breath, nausea, vomiting, diarrhea. She is aware of seeing her mother yesterday but cannot recall details, but had insight that she has been , but unable to recall when that was. Physical Exam Constitutional: WD/WN, vitals as above cooperative and comfortable; no acute distress Eyes: EOM intact bilaterally Neck: normal visual inspection and trachea midline Respiratory: no respiratory distress, no labored breathing and does not use accessory muscles Auscultation: no rales and no wheezes Cardiovascular: Rate/Rhythm: regular rate and regular rhythm Extremities: no edema Gastrointestinal (Abdomen): Percussion/Palpation: abdomen soft; abdomen nontender, no guarding and abdomen not rigid Musculoskeletal: Head/Neck/Chest: normocephalic and head atraumatic Skin: no rashes, warm and dry Neurologic: moves all extremities and awake; no focal motor deficits Psychiatric: Orientation: alert, oriented to person and oriented to time; + not oriented to place ([facility] for location) Eye Contact: + fair eye contact Results & Data Vital Signs (Past 12 Hours) Vital Signs Temp Pulse Resp BP Pulse Ox 05/28/19 08:40 36.7 C 77 19 158/69 H 93 05/28/19 04:19 36.5 C 88 18 153/80 H 99 05/28/19 02:31 86 18 157/88 H 95 05/28/19 01:30 82 16 143/55 H 97 05/28/19 00:05 65 23 188/89 H 95 05/27/19 23:52 68 20 188/79 H 98 Laboratory Results Laboratory Results - last 24 hr 05/27/19 05/27/19 05/27/19 22:49 22:49 23:22 WBC 8.83 RBC 3.86 L Hgb 12.0 Hct 36.2 L MCV 93.8 MCH 31.1 MCHC 33.1 RDW Std Deviation 49.2 H RDW Coeff of Michael 14.5 Plt Count 267 MPV 10.3 Immature Gran % (Auto) 0.2 Neut % (Auto) 68.8 Lymph % (Auto) 18.1 [place] % (Auto) 10.1 Eos % (Auto) 2.6 Baso % (Auto) 0.2 Immature Gran # (Auto) 0.02 Neut # (Auto) 6.07 Lymph # (Auto) 1.60 [place] # (Auto) 0.89 H Eos # (Auto) 0.23 Baso # (Auto) 0.02 Sodium 136 Potassium 4.8 Chloride 100 Carbon Dioxide 25 Anion Gap 11.0 BUN 36 H Creatinine 1.55 H Est Cr Clr Drug Dosing 25.8 Est GFR ( Amer) 36.3 Est GFR (Non-Af Amer) 31.3 BUN/Creatinine Ratio 23.3 H Glucose 234 H POC Glucose 235 H Calcium 8.7 Total Bilirubin 0.3 AST 14 L ALT 27 Alkaline Phosphatase 111 Total Creatine Kinase 47 Troponin I < 0.015 Total Protein 7.6 Albumin 3.6 Globulin 4.0 Albumin/Globulin Ratio 0.9 Vitamin B12 TSH 3.600 Urine Color Urine Appearance Urine pH Ur Specific Scotts Urine Protein Urine Glucose (UA) Urine Ketones Urine Blood Urine Nitrite Urine Bilirubin Urine Urobilinogen Ur Leukocyte Esterase Urine WBC (Auto) Urine RBC (Auto) U Hyaline Cast (Auto) U Epithel Cells (Auto) Urine Bacteria (Auto) Ur Renal Epithelial Cell 05/28/19 05/28/19 05/28/19 00:06 06:02 06:02 WBC 9.48 RBC 3.60 L Hgb 11.2 L Hct 33.5 L MCV 93.1 MCH 31.1 MCHC 33.4 RDW Std Deviation 49.7 H RDW Coeff of Michael 14.4 Plt Count 243 MPV 10.1 Immature Gran % (Auto) 0.2 Neut % (Auto) 67.6 Lymph % (Auto) 18.1 [place] % (Auto) 11.6 Eos % (Auto) 2.3 Baso % (Auto) 0.2 Immature Gran # (Auto) 0.02 Neut # (Auto) 6.40 Lymph # (Auto) 1.72 [place] # (Auto) 1.10 H Eos # (Auto) 0.22 Baso # (Auto) 0.02 Sodium 138 Potassium 4.3 Chloride 105 Carbon Dioxide 24 Anion Gap 9.0 BUN 30 H Creatinine 1.26 H Est Cr Clr Drug Dosing 32.6 Est GFR ( Amer) 46.6 Est GFR (Non-Af Amer) 40.2 BUN/Creatinine Ratio 24.0 H Glucose 196 H POC Glucose Calcium 8.4 L Total Bilirubin AST ALT Alkaline Phosphatase Total Creatine Kinase Troponin I Total Protein Albumin Globulin Albumin/Globulin Ratio Vitamin B12 TSH Urine Color Yellow Urine Appearance Clear Urine pH 5.0 Ur Specific Scotts 1.015 Urine Protein Trace H Urine Glucose (UA) Negative Urine Ketones Negative Urine Blood Trace H Urine Nitrite Negative Urine Bilirubin Negative Urine Urobilinogen Negative Ur Leukocyte Esterase 2+ H Urine WBC (Auto) 1-5 Urine RBC (Auto) 0-4 U Hyaline Cast (Auto) 5-10 H U Epithel Cells (Auto) >30 H Urine Bacteria (Auto) Negative Ur Renal Epithelial Cell 0-5 05/28/19 05/28/19 06:02 08:14 WBC RBC Hgb Hct MCV MCH MCHC RDW Std Deviation RDW Coeff of Michael Plt Count MPV Immature Gran % (Auto) Neut % (Auto) Lymph % (Auto) [place] % (Auto) Eos % (Auto) Baso % (Auto) Immature Gran # (Auto) Neut # (Auto) Lymph # (Auto) [place] # (Auto) Eos # (Auto) Baso # (Auto) Sodium Potassium Chloride Carbon Dioxide Anion Gap BUN Creatinine Est Cr Clr Drug Dosing Est GFR ( Amer) Est GFR (Non-Af Amer) BUN/Creatinine Ratio Glucose POC Glucose 206 H Calcium Total Bilirubin AST ALT Alkaline Phosphatase Total Creatine Kinase Troponin I Total Protein Albumin Globulin Albumin/Globulin Ratio Vitamin B12 534 TSH Urine Color Urine Appearance Urine pH Ur Specific Scotts Urine Protein Urine Glucose (UA) Urine Ketones Urine Blood Urine Nitrite Urine Bilirubin Urine Urobilinogen Ur Leukocyte Esterase Urine WBC (Auto) Urine RBC (Auto) U Hyaline Cast (Auto) U Epithel Cells (Auto) Urine Bacteria (Auto) Ur Renal Epithelial Cell Diagnostic Findings CT Head w/o Proportional ventricular and sulcal prominence, likely age-related parenchymal volume loss. No hemorrhage. Periventricular and subcortical white matter hypoattenuation, nonspecific but likely indicative of chronic small vessel ischemic change. No acute territorial infarct. No mass effect or midline shift. 4 mm isodense extra-axial crescentic fluid collection along the right cerebral convexity new from prior. Paranasal sinuses and mastoid air cells clear. Calvarium intact. IMPRESSION: 1. Small subdural hematoma along the right frontal convexity with minimal subjacent mass effect. The density of the hematoma would be suggestive of a subacute to chronic time course, although this is new from the prior CT on 05/18/2019 and presumably acute. This suggests underlying coagulopathy. 2. Chronic small vessel ischemic change. Medications Administered Apixaban (Eliquis) 2.5 mg PO BID [facility] Stop: 06/27/19 08:59 Last Admin: 05/28/19 08:33 Dose: Not Given Documented by: [id number] Atorvastatin Calcium (Lip[facility]) [facility] Stop: 06/27/19 08:59 Last Admin: 05/28/19 09:02 Dose: 20 mg Documented by: [id number] Diltiazem HCl (Tiazac) 120 mg PO QAM [facility] Stop: 06/27/19 08:59 Last Admin: 05/28/19 09:02 Dose: 120 mg Documented by: [id number] HCTZ/Losartan Potassium (Hyzaar 50/12.5mg) 1 [facility] Stop: 06/27/19 08:59 Last Admin: 05/28/19 09:02 Dose: 1 tab Documented by: [id number] Ceftriaxone Sodium 1,000 mg/ (Dextrose) 50 mls @ 100 mls/hr IV Q24H [facility]; Protocol Stop: 06/02/19 03:59 Last Infusion: 05/28/19 04:35 Dose: 0 mls/hr Documented by: [id number] Admin: 05/28/19 04:08 Dose: 100 mls/hr Documented by: [id number] Insulin Aspart (Novolog Flexpen) 0 units SC ACHS [facility] Stop: 06/27/19 07:29 Last Admin: 05/28/19 09:05 Dose: 6 units Documented by: [id number] Cosigned by: [id number] Insulin Glargine (Lantus Solostar Pen) 12 units SC BID [facility] Stop: 06/27/19 08:59 Last Admin: 05/28/19 09:03 Dose: 12 units Documented by: [id number] Cosigned by: [id number] Levothyroxine Sodium (Synthroid) 88 mcg PO DAILYBB [facility] Stop: 06/27/19 06:29 Last Admin: 05/28/19 05:35 Dose: 88 mcg Documented by: [id number] Metoprolol Tartrate (Lopressor) 125 mg PO BID [facility] Stop: 06/27/19 08:59 Last Admin: 05/28/19 09:02 Dose: 125 mg Documented by: [id number] Pantoprazole Sodium (Protonix) 40 mg PO QAM [facility] Stop: 06/27/19 08:59 Last Admin: 05/28/19 09:03 Dose: 40 mg Documented by: [id number] Polyethylene Glycol (Miralax Powder Packet) 17 gm PO DAILY [facility] Stop: 06/27/19 08:59 Last Admin: 05/28/19 09:03 Dose: 17 gm Documented by: [id number] PG Care Time/CCT Total # of Minutes Spent Total Time Spent with Patient: Total time spent is greater than 50% in coordination of care (as documented) at patient's floor/unit and/or counseling patient: Resident Activity Tracking Resident Involvement: Resident Care Provided Care Provided: Adult Hospital Medicine (1) Diabetes mellitus Diabetes mellitus complication status: with other specified complication Diabetes mellitus [employer] insulin use: unspecified [employer] insulin use status Diabetes mellitus type: other specified (including CHARMAINE) Qualified Code(s): E13.69 - Other specified diabetes mellitus with other specified complication (2) CHI (closed head injury) Encounter type: initial encounter Qualified Code(s): S09.90XA - Unspecified injury of head, initial encounter (3) Altered mental status Altered mental status type: unspecified Qualified Code(s): R41.82 - Altered mental status, unspecified (4) HTN (hypertension) Hypertension type: unspecified Qualified Code(s): I10 - Essential (primary) hypertension
[2019-05-28] MEDS ORDERED: HALOPERIDOL LACTATE 5 MG/ML 1 ML VIAL ONE (12:36)
[2019-05-28] MEDS ORDERED: HALOPERIDOL LACTATE 5 MG/ML 1 ML VIAL IM STA (12:37)
[2019-05-28] MEDS ORDERED: LORazepam 0.25 MG/0.5 ML VIAL IV STA (12:44)
[2019-05-28] MEDS ORDERED: LORazepam 2 MG/4 ML VIAL ONE (12:47)
--- NOTE | 2019-05-28 12:51 | CT Scan Report ---
CT head/brain wo con CLINICAL HISTORY: 79 years-old Female presenting with subdural hematoma. TECHNIQUE: Multidetector CT imaging of the head was performed without the use of intravenous contrast . IV contrast: None. One or more dose lowering techniques were used consistent with the principles of ALARA (as low as reasonably achievable), including automatic exposure control, mA or kV adjustment t o individual patient size, and/or use of iterative reconstruction. COMPARISON: 05/27/2019. CT DOSE (mGy.cm): The estimated cumulative dose is 691.05 mGy.cm. 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 Proportional ventricular and sulcal prominence, likely age-related parenchymal volume loss. Redemonst ration of the small extra-axial collection along the right cerebral convexity, which is isodense to h ypodense, crescentic in morphology, and measures up to 3 mm in thickness, previously 4 mm. No sites o f hyperdensity. Normal subjacent mass effect on the right cerebral convexity. Periventricular and sub cortical white matter hypoattenuation, nonspecific but likely indicative of chronic small vessel isch emic change. No acute territorial infarct. No mass effect or midline shift. Paranasal sinuses and mas toid air cells clear. Calvarium intact. IMPRESSION: 1. Stable to slightly decreased size and density of the right cerebral convexity subdural hematoma. No interval hemorrhage. 2. Chronic small vessel ischemic change. Electronically signed by: George Conklin M.D. 05/28/2019 12:50 PM
[2019-05-28] MEDS ORDERED: ASPIRIN 81 MG ECTAB PO SCH (21:00)
[2019-05-29] MEDS: LEVOTHYROXINE SODIUM 88 MCG TABLET PO SCH (06:19)
[2019-05-29] MEDS: LOSARTAN/HCTZ 50/12.5MG TAB PO SCH (06:30)
[2019-05-29] MEDS: METOPROLOL TARTRATE 50 MG TAB PO SCH ×2 (08:59→21:30)
[2019-05-29] MEDS: ATORVASTATIN 20 MG TAB PO SCH (09:00)
[2019-05-29] MEDS: PANTOprazole 40 MG TAB PO SCH (09:00)
[2019-05-29] MEDS: dilTIAZem ER 120 MG CAPCR PO SCH (09:01)
[2019-05-29] MEDS: POLYETHYLENE (MIRALAX) 17 GM PACK PO SCH (09:01)
[2019-05-29] MEDS: INSULIN ASPART 100 UNITS/ML 3 ML PEN SC SCH ×4 (09:07→21:32)
[2019-05-29] MEDS: INSULIN GLARGINE SOLOSTAR 100 UNITS/ML 3 ML PEN SC SCH ×2 (09:08→21:31)
--- NOTE | 2019-05-29 10:06 | Family Medicine Progress Note ---
Date of Service May 29, 2019 Assessment & Plan (1) Altered mental status: Patient is an 79yo F PMH pAfib, HLD, CKD III, T2DM, hypothyroid, depression, RLS, resting tremor, chronic gastritis who presents with altered mental status. AMS -Likely baseline dementia at neuro baseline but now with new onset 4mm subdural hematoma following a recent closed-head injury that might be slow bleed or resolving from closed head injury in the setting of her being on anti-coagu lation. Will continue holding Eliquis and ASA. Spouse is aware that holding anti-coagulation puts her at risk for cardiac thrombus and CVA, but needed to prevent from rapid brain bleed. -Had a dirty UA, was started on daily Rocephin. Will D/C Rocephin as no evidence of UTI. No prior UTI recent positive cultures. -Scheduled miralax until BM -Neuro was consulted on admission and 05/28 AM recommended transfer to tertiary care center with neurosurg backup incase of surgical intervention if bleed increases; this was discussed with spouse who agreed for transfer. While a repeat head CT was being performed, [facility]. The repeat head CT resulted and showed the subdural hematoma decreased from 4mm to 3mm. [facility] neurosurgeon did not think there was indication for transfer since appears hematoma is resolving based on head CT. -Pt euvolemic, no IVF at this time, tolerating PO fluids -Consulted CM for assessment of home situation. Check on neuropsych appt, pt has no family nearby, overwhelmed with increased level of care pt is requiring. -UA was contaminated with epithelial cells and not able to determine infection from study -There appears to be underlying dementia. Patient was given prior referral appointment to neuropsych for investigation. She was becoming agitated on the floor and required Haldol 2.5mg one time dose (05/28) after discussion for appropriate dosage with pharmacy. She had agitation overnight as well. - Repeat CT Head 05/29 AM for re-evaluation of Subdural hematoma per Neuro recs and will watch for need for another overnight for clinical monitoring, admit inpatient order placed. pAfib -Recent cardioversion -No concerns at present -Cont dilt, metoprolol -Appears NSR this AM on exam -Holding Eliquis, asa -Transfer order placed to med-surg/telemetry but patient not able to cooperate with tele. T2DM -Patient recently started on SQ insulin; has previously refused in outpatient setting -Also on glimepiride 2 BID. unsure of effectiveness of her pancreas ability to produce insulin and this effectiveness of this medication -Notes has resting tremor and this makes it difficult to administer. - is attempting to administer, unclear if this is happening -Last A1C 8.7 in April 2019. -Placed on ISS for current stay HTN/HLD -cont home meds CKD 3, Baseline Cr 1.4-1.6 -Admission level at baseline, continue to monitor Chronic gastritis -Stable, cont home meds Hypothyroid -TSH stable -Cont home meds RLS -Cont home meds Depression -Cont home meds Tremor -Follow up as outpatient Code: Full DVTP: kody - holding bc of findings from CT scan Dispo: admit to med/surg, order changed from obs to inpatient (05/29) (2) Paroxysmal atrial fibrillation: (3) Diabetes mellitus: (4) CKD (chronic kidney disease) stage 3, GFR 30-59 ml/min: (5) HTN (hypertension): (6) HLD (hyperlipidemia): (7) Hypothyroid: (8) Tremor: (9) RLS (restless legs syndrome): (10) Depression: (11) CHI (closed head injury): Supervising Physician Co-Signing Physician Notes I interviewed and examined the patient. Discussed with Dr. Crawford and agree with findings and plan as documented in the note. Any exceptions or clarifications are listed here: None Patient is no longer confused. Had discussion with in regards to subdural hematoma. Repeat imaging appears to show a decrease in size. At this moment will not transfer patient and will continue to monitor for another 24-48 hours. If patient continues to be stable, may consider discharge. Spent 35 minutes in management of patient. Subjective Caveat: history limited by AMS. Spouse present. Overnight events significant from nursing report for - Periods of agitation. Doesn't believe she is in the hospital and that her condition is real. Wants to go home. at bedside. He seems to be very scared and overwhelmed. MD [overnight] ordered prn 1:1. This morning behavior has been stable. She mentions this morning that her voice sounds funny and possibly from dry mouth. No shortness of breath no chest pain. She is not aware of location when asked this morning "I don't know." Review of Systems Review of Systems: All systems reviewed & are unremarkable except as noted in HPI & below Physical Exam Constitutional: WD/WN, vitals as above cooperative and comfortable; no acute distress Eyes: EOM intact bilaterally Neck: normal visual inspection and trachea midline Respiratory: no respiratory distress, no labored breathing and does not use accessory muscles Auscultation: no rales and no wheezes Cardiovascular: Rate/Rhythm: regular rate and regular rhythm Extremities: no edema Gastrointestinal (Abdomen): Percussion/Palpation: abdomen soft; abdomen nontender, no guarding and abdomen not rigid Musculoskeletal: Head/Neck/Chest: normocephalic and head atraumatic Skin: no rashes, warm and dry Neurologic: moves all extremities and awake; no focal motor deficits Psychiatric: Orientation: alert and oriented to person; + not oriented to place (not aware of location when asked this morning "I don't know") Results & Data Vital Signs (Past 12 Hours) Vital Signs Temp Pulse Pulse Resp BP BP Pulse Ox 05/29/19 07:19 36.6 C 73 18 156/72 H 96 05/29/19 05:26 75 05/29/19 04:50 36.6 C 76 18 188/85 H 94 PG Care Time/CCT Total # of Minutes Spent Total Time Spent with Patient: Total time spent is greater than 50% in coordination of care (as documented) at patient's floor/unit and/or counseling patient: (1) Diabetes mellitus Diabetes mellitus complication status: with other specified complication Diabetes mellitus moth exterminator insulin use: unspecified [facility] insulin use status Diabetes mellitus type: other specified (including CHARMAINE) Qualified Code(s): E13.69 - Other specified diabetes mellitus with other specified complication (2) CHI (closed head injury) Encounter type: initial encounter Qualified Code(s): S09.90XA - Unspecified injury of head, initial encounter (3) Altered mental status Altered mental status type: unspecified Qualified Code(s): R41.82 - Altered mental status, unspecified (4) HTN (hypertension) Hypertension type: unspecified Qualified Code(s): I10 - Essential (primary) hypertension
--- NOTE | 2019-05-29 11:12 | CT Scan Report ---
CT SCAN OF THE BRAIN WITHOUT IV CONTRAST CLINICAL HISTORY: Follow-up subdural hematoma. COMPARISON STUDY: CT of the brain dated 05/28/2019 and 05/18/2019. TECHNIQUE: Unenhanced axial CT scan of the brain is performed from the vertex to the skull base. A do se lowering technique was utilized adhering to the principles of ALARA. CT DOSE: 537.48 mGy.cm FINDINGS: Brain parenchyma: A small subdural hemorrhage along the right convexity is unchanged from yesterday a nd measures up to 4 mm diameter. There is no significant associated mass effect. There are age-relate d involutional changes noting mild subcortical and periventricular microangiopathic change. There is no parenchymal hematoma, mass effect, or evidence of acute territorial ischemia by CT criteria. Woody -white matter differentiation is preserved. Mineralization is noted in the basal ganglia. Ventricles, sulci, cisterns: Prominent secondary to involutional change. Intracranial vasculature: There is atherosclerotic calcification of the cavernous carotid and vertebr al arteries. Calvarium: Unremarkable. Sinuses and mastoids: The visualized paranasal sinuses are clear. The mastoid air cells are well pneu matized. Orbits: The bony orbits are grossly intact. IMPRESSION: 1. There has been no significant change in the size of a small subdural hemorrhage along the right co nvexity as compared to yesterday. 2. No new focus of hemorrhage is seen. There is no mass effect or evidence of acute territorial ische jerzy by CT criteria. Electronically signed by: Ridge Valerio M.D. 05/29/2019 11:11 AM
[2019-05-30] MEDS: LEVOTHYROXINE SODIUM 88 MCG TABLET PO SCH (05:46)
--- NOTE | 2019-05-30 08:05 | Family Medicine Progress Note ---
Date of Service May 30, 2019 Assessment & Plan (1) Altered mental status: Patient is an 79yo F PMH pAfib, HLD, CKD III, T2DM, hypothyroid, depression, RLS, resting tremor, chronic gastritis who presents with altered mental status. AMS -Likely baseline dementia at neuro baseline but now with new onset 4mm subdural hematoma following a recent closed-head injury that might be slow bleed or resolving from closed head injury in the setting of her being on anti-coagu lation. Will continue holding Eliquis and ASA. Spouse is aware that holding anti-coagulation puts her at risk for cardiac thrombus and CVA, but needed to prevent from rapid brain bleed. -Had a dirty UA, was started on daily Rocephin. Will D/C Rocephin as no evidence of UTI. No prior UTI recent positive cultures. -Scheduled miralax until BM -Neuro was consulted on admission and 05/28 AM recommended transfer to tertiary care center with neurosurg backup incase of surgical intervention if bleed increases; this was discussed with spouse who agreed for transfer. While a repeat head CT was being performed, [facility]. The repeat head CT resulted and showed the subdural hematoma decreased from 4mm to 3mm. [facility] neurosurgeon did not think there was indication for transfer since appears hematoma is resolving based on head CT. -Pt euvolemic, no IVF at this time, tolerating PO fluids -Consulted CM for assessment of home situation. Check on neuropsych appt, pt has no family nearby, overwhelmed with increased level of care pt is requiring. -UA was contaminated with epithelial cells and not able to determine infection from study -There appears to be underlying dementia. Patient was given prior referral appointment to neuropsych for investigation. She was becoming agitated on the floor and required Haldol 2.5mg one time dose (05/28) after discussion for appropriate dosage with pharmacy. She had agitation overnight as well. - Repeat CT Head 05/29 AM for re-evaluation of Subdural hematoma per Neuro recs and will watch for need for another overnight for clinical monitoring, admit inpatient order placed. pAfib -Recent cardioversion -No concerns at present -Cont dilt, metoprolol -Appears NSR this AM on exam -Holding Eliquis, asa -Transfer order placed to med-surg/telemetry but patient not able to cooperate with tele. T2DM -Patient recently started on SQ insulin; has previously refused in outpatient setting -Also on glimepiride 2 BID. unsure of effectiveness of her pancreas ability to produce insulin and this effectiveness of this medication -Notes has resting tremor and this makes it difficult to administer. - is attempting to administer, unclear if this is happening -Last A1C 8.7 in April 2019. -Placed on ISS for current stay HTN/HLD -cont home meds CKD 3, Baseline Cr 1.4-1.6 -Admission level at baseline, continue to monitor Chronic gastritis -Stable, cont home meds Hypothyroid -TSH stable -Cont home meds RLS -Cont home meds Depression -Cont home meds Tremor -Follow up as outpatient Code: Full DVTP: kody - olivia bc of findings from CT scan Dispo: admit to med/surg, order changed from obs to inpatient (05/29) (2) Paroxysmal atrial fibrillation: (3) Diabetes mellitus: (4) CKD (chronic kidney disease) stage 3, GFR 30-59 ml/min: (5) HTN (hypertension): (6) HLD (hyperlipidemia): (7) Hypothyroid: (8) Tremor: (9) RLS (restless legs syndrome): (10) Depression: (11) CHI (closed head injury): Results & Data Vital Signs (Past 12 Hours) Vital Signs Temp Pulse Pulse Resp BP BP Pulse Ox 05/30/19 07:55 79 05/30/19 07:50 36.7 C 85 18 175/84 H 184/81 H 96 05/30/19 04:21 36.7 C 88 18 171/77 H 91 05/30/19 00:40 76 05/29/19 23:15 37.0 C 83 16 174/76 H 93 PG Care Time/CCT Total # of Minutes Spent Total Time Spent with Patient: Total time spent is greater than 50% in coordination of care (as documented) at patient's floor/unit and/or counseling patient: (1) Altered mental status Altered mental status type: unspecified Qualified Code(s): R41.82 - Altered mental status, unspecified (2) Diabetes mellitus Diabetes mellitus complication status: with other specified complication Diabetes mellitus virtual office assistant insulin use: unspecified virtual office assistant insulin use status Diabetes mellitus type: other specified (including CHARMAINE) Qualified Code(s): E13.69 - Other specified diabetes mellitus with other specified complication (3) HTN (hypertension) Hypertension type: unspecified Qualified Code(s): I10 - Essential (primary) hypertension (4) CHI (closed head injury) Encounter type: initial encounter Qualified Code(s): S09.90XA - Unspecified injury of head, initial encounter
[2019-05-30] MEDS: dilTIAZem ER 120 MG CAPCR PO SCH (08:44)
[2019-05-30] MEDS: ATORVASTATIN 20 MG TAB PO SCH (08:44)
[2019-05-30] MEDS: PANTOprazole 40 MG TAB PO SCH (08:44)
[2019-05-30] MEDS: LOSARTAN/HCTZ 50/12.5MG TAB PO SCH (08:44)
[2019-05-30] MEDS: METOPROLOL TARTRATE 50 MG TAB PO SCH (08:45)
[2019-05-30] MEDS: INSULIN GLARGINE SOLOSTAR 100 UNITS/ML 3 ML PEN SC SCH (08:47)
[2019-05-30] MEDS: POLYETHYLENE (MIRALAX) 17 GM PACK PO SCH (08:48)
[2019-05-30] MEDS: INSULIN ASPART 100 UNITS/ML 3 ML PEN SC SCH ×2 (08:50→12:35)
--- NOTE | 2019-05-30 10:17 | Neurology Progress Note ---
Date of Service May 30, 2019 Assessment & Plan (1) Subdural hematoma: The patient has a very tiny, right-sided convexity subdural hematoma. Its appearance is almost isodense, which adds to the discussion of whether this is truly acute or subacute/chronic. However, the patient had a CT scan of the head May 18 which did not show any subdural hematoma in that area. Therefore, this cannot be a chronic problem. She has a history of a fall and minor right-sided head trauma, that did not produce any significant symptoms afterwards. I doubt she suffered a concussion. If the fall occurred after May 18 then the subdural could be secondary to the head trauma. Alternatively, this could be a slight spontaneous bleed due to the fact that she was on an anticoagulant (due to her atrial fibrillation). She has been off the anticoagulant the last 48 hours, but remains on [address] scan of the head May 29 showed no change compared to her admission CT of May 27. There was no reason to transfer her. Patient has had no seizure activity since admission. On neurologic examination today she has no focal neurologic findings, meningeal signs, or obvious delirium/encephalopathy. She does have an underlying dementia. (2) Altered mental status: The patient was admitted with acute encephalopathy May 27 which have been occurring over 7 days and seems completely resolved today. I suspect that this was acute on a mild chronic under dementia. She has a history of short- term memory loss. If it is true that the head trauma was a few days prior to admission then confusion and subdural could all be due to the head trauma and mild concussion problems were occurring (which have since resolved). Patient's MRI showed moderate generalized atrophy and old small vessel ischemia. Along with her age, this could give a mild dementia. 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 Patient's father reported had tremor as well. 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 She has seen Dr. Archer for this tremor back in December of 2018. She failed a trial of primidone. (4) Chronic cerebral ischemia: MRI of the brain shows chronic cerebral ischemia the [id number] nature. Risk factors for stroke include longstanding diabetes and hypertension as well as her advanced age and atrial fibrillation. She has been on 81 milligram aspirin tablet daily as well as comma recently, Eliquis. Off Eliquis she would be at stroke risk. Recommendations: 1. Keep off anticoagulant (and technically off the antiplatelet medication as well) until the subdural has resolved. 2. She would need follow-up CT scan to follow this hematoma as an outpatient later this week and/or next week. 3. She sees Dr. Archer in clinic regularly and he can do the follow-up. 4. Suggest outpatient neuropsychological testing to evaluate her memory. 5. There is no need for additional medication at this time for her tremor. Please contact me if I can be of further help in this case. Overall I spent a total of 70 minutes with this case including review of records, review of multiple CT scans (with Dr. Conklin, radiology), direct evaluation the patient at bedside, and discussion of the case with the patient and her who was at bedside, clinical staff, Dr. Conklin, and Dr. Lizama, including differential diagnosis and treatment options. Subjective Patient feels that she is doing very well today. She knows she has short-term memory loss but feels this is been going on for years. Her , who is present in the room, thinks that she was doing fairly well until recently, a few days prior to admission when she has had increased confusion and some visual type hallucinations. She feels that today she has no confusion or hallucinations but does get forgetful with short-term issues. She has no headache or dizziness. Patient complains of tremor which is been present for many years. Her father had tremor as well. Patient apparently was diagnosed with paroxysmal atrial fibrillation in early March of 2019. She was put on Eliquis March 24 and was taking this up until this hospitalization. On May 10 she was admitted for 48 hours for feelings of generalized weakness and decreased ability to recall. An MRI of the brain was obtained and showed no acute changes. There was moderate generalized atrophy and some mild to moderate old small vessel ischemic changes diffusely. I reviewed this MRI. Discharge diagnoses were not definite, but she may have had symptoms from low blood sugar as opposed to a true TIA. She remains on 81 milligram aspirin tablet daily (which she has been on for years) as well as Eliquis. On May 18, she came to the emergency room for symptoms that were felt to be secondary to UTI. A CT scan of that time was unremarkable. I reviewed this film with Dr. Conklin and there was no evidence of subdural hematoma at that time. Sometime either before or after May 18 the patient fell in her kitchen tripping over a table leg hitting the left side of her head on a cabinet. There was no loss of consciousness or stunned but she did have some soreness/headache pain on that side. The claims she was not complaining of any issues following this. They just can't remember whether was before or after May 18. Patient came to the emergency room May 27 with a several day history of confusion, seeing things visually, and a frontal headache. CT scan of the head showed a very tiny age indeterminate right subdural hematoma. I reviewed this film with Dr. Conklin as well. Signal characteristics reveal that this is not as dense as a subdural resulting from recent head trauma should look like. A very small spontaneous hemorrhage may have this type of densities. Patient's mental status has cleared nicely since admitted and she is not having any visual hallucinations or headaches. Follow-up CT scan of the head May 29 showed no change compared to May 27. Again, I reviewed these films with Dr. Conklin. This is a very tiny subdural hematoma on the right. Currently, blood pressure is 184/81 and she is afebrile at 36.7. Glucose is elevated at 223. Physical Exam Physical Exam: She is awake and alert. Speech is without aphasia or dysarthria. She is pleasant and cooperative and oriented to name, age, place, day of the week, month, year, president and new left from right. She did not know the exact date. Conversationally her long-term memory is very good but her short-term memory is not good. Extraocular eye muscles are intact without nystagmus. There is no facial droop. Tongue is midline. There is no head tremor. Patient has no drift with outstretched arms but there is mild posture action tremor bilaterally. There is no ataxia with [id number] testing. Motor strength is 5/5 in all major muscle groups in the arms and legs both proximally and distally with good tone and no rigidity. There is no focal atrophy. Stance is normal sitting. Results & Data Vital Signs (Past 12 Hours) Vital Signs Temp Pulse Pulse Resp BP BP Pulse Ox 05/30/19 07:55 79 05/30/19 07:50 36.7 C 85 18 175/84 H 184/81 H 96 05/30/19 04:21 36.7 C 88 18 171/77 H 91 05/30/19 00:40 76 05/29/19 23:15 37.0 C 83 16 174/76 H 93 (1) Altered mental status Altered mental status type: unspecified Qualified Code(s): R41.82 - Altered mental status, unspecified
--- NOTE | 2019-05-30 14:20 | Discharge Summary ---
Date of Service May 30, 2019 Admission HPI Per Admitting Provider Patient is an 79yo F PMH pAfib, HLD, CKD III, T2DM, hypothyroid, depression, RLS, resting tremor, chronic gastritis who presents with altered mental status. She presents with her , who provides the history. He notes that this has been a new issue for her in the past several months, but in the last 3 days things have gotten acutely worse, citing that she thinks she is talking to her mother (), thinks she has company over, doesn't always recognize her . notes that she was recently treated for a UTI and was told by PCP it had cleared up. She has also been recently treated for a yeast infection, has been started on a new medication (injection) for her diabetes, and has not had a bowel movement for 3-4 days. He notes she recently fell at home a few weeks ago and hit her head but had no LOC. On ROS, patient notes shaky hands, lightheadedness on standing, L-sided headaches, abdominal discomfort, decreased appetite/poor food intake with good water intake, and frequency of urination but denies dysuria or hematuria. states that her doctors think she has a neurological problem and was being sent to a neurologist but has not seen them yet. He denies being familiar with possible dementia diagnosis. ER course: CBC, grossly CMP normal for patient, normal TSH, negative trop. UA dirty with +blood/leuk esterase. CT head with statrad read revealed R frontal dural thickening or isodense-chronic subdural hematoma. Chart review shows recent visit to PCP, where they discussed neuropsych testing for dementia. given resources for assistance at home. Recent admit 05/10-05/12 for AMS, though to be from UTI/dehydration/TIA/dementia. Recent ablation for afib. Admission Exam Per Admitting Provider Constitutional: WD/WN, vitals as above + well hydrated, average body habitus, + frail appearing and cooperative; no acute distress and not diaphoretic Eyes: PERRL, conjunctivae normal, anicteric sclerae ENMT: external ear and nose normal, oropharynx normal Neck: normal visual inspection Respiratory: normal respiratory effort, lungs clear to auscultation Cardiovascular: RRR, no murmur, no edema Gastrointestinal (Abdomen): normal bowel sounds, soft, nontender, no hepatosplenomegaly Skin: no rashes, warm and dry normal turgor Neurologic: PERRL, EOMI, accommodation nl, no face palsy, no dysarthria Psychiatric: Orientation: alert, oriented to person and oriented to place; + not oriented to time Affect: + anxious affect Thought Process: + circumstantial thought process Principal Diagnosis Subdural hematoma Discharge Exam onstitutional: WD/WN, vitals as above cooperative and comfortable; no acute distress Eyes: EOM intact bilaterally Neck: normal visual inspection and trachea midline Respiratory: no respiratory distress, no labored breathing and does not use accessory muscles Auscultation: no rales and no wheezes Cardiovascular: Rate/Rhythm: regular rate and regular rhythm Extremities: no edema Gastrointestinal (Abdomen): Percussion/Palpation: abdomen soft; abdomen nontender, no guarding and abdomen not rigid Musculoskeletal: Head/Neck/Chest: normocephalic and head atraumatic Skin: no rashes, warm and dry Neurologic: moves all extremities and awake; no focal motor deficits Psychiatric: AAO x3 new where she was, the month, and the president stated the year was 1918 Discharge Data Allergies Allergy/AdvReac Type Severity Reaction Status Date / Time adhesive Allergy Mild red/blistered Verified 05/27/19 23:00 skin latex Allergy Mild CONTACT Verified 05/27/19 23:00 DERMATITIS carvedilol Allergy Unknown pt unsure, Verified 05/27/19 23:00 listed prior acetaminophen [From Percocet] Allergy Unknown Verified 05/27/19 23:00 gabapentin Allergy Unknown Verified 05/27/19 23:00 ranitidine [From Zantac] Allergy Unknown Verified 05/27/19 23:00 omeprazole AdvReac Intermediate HALLUCINATI Verified 05/27/19 23:00 ONS oxycodone AdvReac Intermediate itching Verified 05/27/19 23:00 phenobarbital AdvReac Intermediate HALLUCINATI Verified 05/27/19 23:00 ONS cephalexin AdvReac Mild DIARRHEA Verified 05/27/19 23:00 fentanyl AdvReac Mild altered Verified 05/27/19 23:00 mental status levofloxacin AdvReac Mild DIARRHEA Verified 05/27/19 23:00 meperidine AdvReac Mild HEADACHES Verified 05/27/19 23:00 metformin AdvReac Mild DIARRHEA Verified 05/27/19 23:00 Sulfa (Sulfonamide AdvReac Mild DIARRHEA Verified 05/27/19 23:00 Antibiotics) fluoxetine AdvReac Unknown Unknown Verified 05/27/19 23:00 Consultations 05/28/19 00:42 ED Decision to Admit Stat 05/28/19 03:15 Consult Case Management - Discharge Planning Routine 05/28/19 03:23 Consult Neurology Routine Ordered Studies 05/27/19 22:41 CT head/brain wo con Urgent 05/28/19 10:15 CT head/brain wo con Routine 05/29/19 09:59 CT head/brain wo con Routine Hospital Course (1) Altered mental status: Patient is an 79yo F PMH pAfib, HLD, CKD III, T2DM, hypothyroid, depression, RLS, resting tremor, chronic gastritis who presents with altered mental status. AMS Likely baseline dementia at neuro baseline but now with new onset 4mm subdural hematoma following a recent closed-head injury that might be slow bleed or resolving from closed head injury in the setting of her being on anti-coag ulation. Will continue holding Eliquis and ASA. Spouse is aware that holding anti-coagulation puts her at risk for cardiac thrombus and CVA, but needed to prevent from rapid brain bleed. In ED had a dirty UA, was started on daily Rocephin subsequently D/C Rocephin as no evidence of UTI. No prior UTI recent positive cultures.Neuro was consulted on admission and 05/28 AM recommended transfer to tertiary care center with neurosurg backup incase of surgical intervention if bleed increases; this was discussed with spouse who agreed for transfer. While a repeat head CT was being performed, [facility] Laura was contacted for transfer. The repeat head CT resulted and showed the subdural hematoma decreased from 4mm to 3mm. [facility] neurosurgeon did not think there was indication for transfer since appears hematoma is resolving based on head CT. Consulted CM for assessment of home situation. Check on neuropsych appt, pt has no family nearby, overwhelmed with increased level of care pt is requiring however both are firmly refusing placement. There appears to be underlying dementia. Patient was given prior referral appointment to neuropsych for investigation. She was becoming agitated on the floor and required Haldol 2.5mg one time dose (05/28) after discussion for appropriate dosage with pharmacy. Repeat CT Head 05/29 AM for re-evaluation of Subdural hematoma per Neuro recs and will watch for need for another overnight for clinical monitoring.Neuro reevaluated the patient on 05/30 and felt there is no indication for further inpatient work-up and that the patient was appropriate for discharge, her symptoms likely represent chronic dementia. pAfib She was in normal sinus rhythm out the duration of her hospitalization, has a history of a recent cardioversion. There were no cardiac concerns during this hospitalization. Initially patient was to be placed on telemetry however she was unable to tolerate it secondary to dementia. Diltiazem and metoprolol were continued throughout her hospitalization, Eliquis was held secondary to findings of subdural hematoma. We will continue holding Eliquis on discharge and defer resumption of Eliquis to conversation between PCP and neurology. T2DM Last A1c was 8.7 in April 2019, patient takes glimepiride twice daily at home and was recently started on subcu insulin. She states she is unable to give herself secondary to resting tremor, has been attempting to administer unclear if this is occurring. She was placed on sliding scale insulin during her's current stay and will be discharged on her home meds HTN/HLD -cont home meds CKD 3, Baseline Cr 1.4-1.6 -Admission level at baseline, continue to monitor Chronic gastritis -Stable, cont home meds Hypothyroid -TSH stable -Cont home meds RLS -Cont home meds Depression -Cont home meds Tremor -Follow up as outpatient Code: Full DVTP: eliquis - holding bc of findings from CT scan Dispo: home Total Time Total Time Spent Total Time Spent (In Minutes): >30 Discharge Plan Discharge Items Patient Disposition: Home - Self-Care Reason For Visit: AMS Discharge Diagnosis: AMS Discharge Goals: Diagnostic testing Activity: Resume your previous activity Activity Comment: as tolerated Non-emergency contact: Primary Care Provider Call non-emergency contact if: you have any medication questions and your symptoms worsen Follow-up/Referrals: Harinder Archer MD [Physician] - Jack Holloway MD [Primary Care Provider] - Diet: Carb Consistent or DM2 Addtl Provider Instructions: Care instructions: You were admitted to [facility] for treatment of Subdural Hematoma . A discharge summary will be sent to your primary care physician to ensure continuity of care.Please bring this discharge summary with you to your next office appointment so that your provider can review it at that time. Follow-up appointments: - Keep all your follow-up appointments as already scheduled. If you cannot make an appointment, notify your provider. - Please call to request a follow-up appointment with your primary care physician within one week of discharge. Please let us know if you are unable to obtain an appointment Medications: - Your medication list has been reviewed and reconciled upon discharge to ensure accuracy and continuity of care. - You are provided with a list of all your current medications at this time. Please review this list closely and make note of any changes. - Please take all of your medications exactly as prescribed. - Tell your primary care provider if you cannot afford your medications. - Call your primary care provider if you are having any side effects or any other problems. - Call your primary care provider before taking any over the counter medications or supplements, including herbals and vitamins, because some of these may interact with your current medications and/or make your symptoms worse. Symptoms: Please call your primary care provider for symptoms including, but not limited to: fevers (temperatures greater than 100.4), chills, intractable nausea or vomiting, diarrhea, rash, shortness of breath, bleeding, pain, or if you experience any worsening of the symptoms that brought you to the hospital. For EMERGENCY and VERY SERIOUS health-related issues, such as chest pain, shortness of breath, or sudden onset of the symptoms that brought you to the hospital, you may need to call 911 or go directly to the Emergency Room It has been our privilege to take care of you during your hospital stay. And Above All Else Fell Better! Best Wishes, Chi Al MD PGY1 Resident, Family & Community Medicine [facility] - [address], [address] MC: [address] [place] [address], [place] [id number] Prescriptions: Continued glimepiride 2 mg tablet 2 mg PO BID Qty: 180 RF: 3 diltiazem HCl 120 mg capsule,extended release 24 hr 120 mg PO QAM Qty: 30 RF: 5 Lantus Solostar U-100 Insulin 100 unit/mL (3 mL) insulin pen 5 units SQ DAILY Qty: 15 RF: 2 rabeprazole [Aciphex] 20 mg Tablet,Delayed Release (Dr/Ec) 20 mg PO QAM RF: 0 atorvastatin 20 mg Tablet 20 mg PO QAM RF: 0 aspirin [Aspirin Low Dose] 81 mg Tablet,Delayed Release (Dr/Ec) 81 mg PO HS RF: 0 multivitamin Capsule 1 cap PO QAM RF: 0 levothyroxine 88 mcg Capsule 88 mcg PO QAM RF: 0 ascorbic acid (vitamin C) [Vitamin C] 500 mg Tablet 500 mg PO QAM RF: 0 cholecalciferol (vitamin D3) [Vitamin D3] 1,000 unit Capsule 1,000 unit PO QAM RF: 0 losartan-hydrochlorothiazide 100-25 mg Tablet 1 tab PO QAM RF: 0 metoprolol tartrate 100 mg tablet 125 mg PO BID Qty: 30 RF: 1 Discontinued Eliquis 2.5 mg tablet 2.5 mg PO BID Qty: 30 RF: 1 Stand-Alone Forms: [facility] Discharge Orders: Discharge Order (Routine); Ordered 05/30/19 Ordered By: Chi Al Admission Data Admit Date/Time: 05/29/19 12:27 Attending Provider: Damaris Lizama Admit Provider: Twyla Adam Primary Care Provider: Jack Holloway Other Providers: Harinder Archer Service: Telemetry Medical Other Interventions: Discharge Summary Assessment (RN) Last Done: 05/30/19 15:43 DC Date/Time DO NOT enter until pt leaves facility: 05/30/19 16:45 Supervising Physician Co-Signing Physician Notes Patient seen and examined independently of Dr. Al. Agree with history, exam findings, assessment and plan of care as outlined. Well appearing, some short term memory issues. Neurologically intact. 79yo F PMH pAfib, HLD, CKD III, T2DM, hypothyroid, depression, RLS, resting tremor, chronic gastritis who presents with altered mental status. 1. AMS due to subdural hematoma -Likely baseline dementia - new onset 4mm subdural hematoma following a recent closed-head injury?3mm. Very small. Unlikely to represent a bleed that requires further monitoring in [facility] at this point. - holding eliquis, continue ASA 2. abnormal UA - ceftriaxone d/c as culture negative 3. Dementia with overlying delirium in the setting of hospitalization - consult for assistance with possible placement/community resources - neurosloyd danica as an outpatient 4. pafib - s/p recent cardioversion, in NSR - continue dilt and metoprolol - holding AC 5. DM2 - glimperide 2mg BID, recently started sq insulin but unsure if this is feasible - ssi here - A1C 8.7 in April 6. HTN - continue home dilt and metoprolol, HCTZ/losartan Other chronic issues were stable and home medication continued. DC to home today with . I personally spent 25 minutes discharge planning for this patient. Resident Activity Tracking Resident Involvement: Resident Care Provided Care Provided: Adult Hospital Medicine
== END 2019-05-30 16:45 | disposition home or self-care (01) | DRG 83 ==
LOC: ED 21:49 → 4E 21:49 → SUATTDRO 05-28 02:13 → 4E 05-28 02:55 → 2W 05-28 13:25 → SUATTDRO 05-29 12:27
DX: I12.9 Hypertensive chronic kidney disease with stage 1 through stage 4 chronic kidney disease, or unspecified chronic kidney disease; N18.3 Chronic kidney disease, stage 3 (moderate); G25.0 Essential tremor; K29.50 Unspecified chronic gastritis without bleeding; Z79.01 Long term (current) use of anticoagulants; F03.91 Unspecified dementia, unspecified severity, with behavioral disturbance; E11.22 Type 2 diabetes mellitus with diabetic chronic kidney disease; G25.81 Restless legs syndrome; E11.65 Type 2 diabetes mellitus with hyperglycemia; E78.5 Hyperlipidemia, unspecified; Z79.899 Other long term (current) drug therapy; G47.33 Obstructive sleep apnea (adult) (pediatric); S06.5X9A Traumatic subdural hemorrhage with loss of consciousness of unspecified duration, initial encounter; Z79.82 Long term (current) use of aspirin; I48.0 Paroxysmal atrial fibrillation; E03.9 Hypothyroidism, unspecified; W19.XXXA Unspecified fall, initial encounter; F32.9 Major depressive disorder, single episode, unspecified; Z79.4 Long term (current) use of insulin

== ENCOUNTER 2019-06-26 19:11 | Observation (INO) ==
[2019-06-26 19:40] LABS: Hematocrit (blood only) 33.9 % (37-47); Hemoglobin 11.2 g/dL (12.0-16.0); Mean Corpuscular Volume 95.2 fL (80-100); Mean Platelet Volume 10.4 fL (7.4-10.4); Platelet Count 280 K/uL (130-400); RDW Coefficient of Variation 13.9 % (11.5-14.5); RDW Standard Deviation 48.4 fL (36.4-46.3); Red Blood Count 3.56 M/uL (4.2-5.4); White Blood Count 13.12 K/uL (4.8-10.8)
[2019-06-26 19:54] LABS: Appearance Urine Cloudy (Clear); Bacteria Urine Automated Negative (Negative); Bilirubin Urine Negative (Negative); Blood Urine Negative (Negative); Color Urine Yellow; Epithelial Cell Urine Auto >30 /lpf (0-5); Glucose Urine UA Negative (Negative); Ketones Urine Trace (Negative); Leukocyte Esterase Urine 2+ (Negative); Nitrite Urine Negative (Negative); Protein Urine 1+ (Negative); RBC Urine Automated 0-4 /hpf (0-4); Specific Gravity Urine 1.024 (1.000-1.030); Urobilinogen Urine Negative (Negative); WBC Urine Automated >30 /hpf (0-5)
[2019-06-26 19:56] LABS: Partial Thromboplastin Ratio 1.1; Partial Thromboplastin Time 31.1 Seconds (21.0-31.0); Prothrombin Time 10.3 Seconds (9.0-12.0)
[2019-06-26 20:00] LABS: Alanine Aminotransferase 19 U/L (12-78); Albumin Globulin Ratio 0.9 (0.9-2); Albumin Level 3.6 gm/dl (3.4-5.0); Alkaline Phosphatase 112 U/L (45-117); Aspartate Aminotransferase 11 U/L (15-37); BUN Creatinine Ratio 18.6 (10-20); Bilirubin,Total 0.3 mg/dl (0.2-1); Blood Urea Nitrogen 32 mg/dl (7-18); Calcium 8.3 mg/dl (8.5-10.1); Carbon Dioxide 25 mmol/L (21-32); Chloride 101 mmol/L (98-107); Creatinine Clr Calc Pharmacy 23.8 ml/min; Est GFR (African American) 32.2; Est GFR (Non-African American) 27.8; Globulin 3.9 gm/dl (2.5-4.0); Glucose 376 mg/dl (70-99); Magnesium 1.6 mg/dl (1.8-2.4); Potassium 5.1 mmol/L (3.5-5.1); Sodium 134 mmol/L (136-145); Total Protein 7.5 gm/dl (6.4-8.2); Troponin I < 0.015 ng/ml (0-0.045)
[2019-06-26 20:02] LABS: Basophils # (auto) 0.02 K/uL (0-0.2); Basophils % (auto) 0.2 %; Eosinophils # (auto) 0.22 K/uL (0-0.5); Eosinophils % (auto) 1.7 %; Immature Granulocytes # (auto) 0.03 K/uL (0.00-0.02); Immature Granulocytes % (auto) 0.2 %; Lymphocytes # (auto) 1.45 K/uL (1.2-3.4); Lymphocytes % (auto) 11.1 %; Monocytes # (auto) 0.69 K/uL (0.11-0.59); Monocytes % (auto) 5.3 %; Neutrophils # (auto) 10.71 K/uL (1.4-6.5); Neutrophils % (auto) 81.5 %
--- NOTE | 2019-06-26 20:05 | XRay Report ---
XR chest 1V portable CLINICAL HISTORY: 79 years-old Female presenting with ams. TECHNIQUE: Portable upright AP view of the chest was obtained. COMPARISON: 05/27/2019. FINDINGS: Atherosclerosis of the aortic arch. Cardiac silhouette enlarged. No focal opacity. No large effusion or pneumothorax. [place] noted in the left humeral head. Chronic widening of the AC joints. Degenerati ve changes of the spine. Upper abdomen normal. IMPRESSION: 1. Cardiomegaly. No other convincing evidence of acute cardiopulmonary disease. Electronically signed by: George Conklin M.D. 06/26/2019 8:03 PM
[2019-06-26 20:11] LABS: Beta-Hydroxybutyrate 2.19 mg/dl (0.2-2.81)
--- NOTE | 2019-06-26 20:14 | CT Scan Report ---
CT head/brain wo con CLINICAL HISTORY: 79 years-old Female presenting with Stroke evaluation, left-sided facial numbness. TECHNIQUE: Multidetector CT imaging of the head was performed without the use of intravenous contrast . IV contrast: None. One or more dose lowering techniques were used consistent with the principles of ALARA (as low as reasonably achievable), including automatic exposure control, mA or kV adjustment t o individual patient size, and/or use of iterative reconstruction. COMPARISON: 06/23/2019. CT DOSE (mGy.cm): The estimated cumulative dose is 537.48 mGy.cm. FINDINGS: Police Liaison topogram: Unremarkable. Proportional ventricular and sulcal prominence, likely age-related parenchymal volume loss. No hemorr afshan. Periventricular and subcortical white matter hypoattenuation, nonspecific but likely indicative of chronic small vessel ischemic change. Senescent calcification in the basal ganglia. No acute terr itorial infarct. No mass effect or midline shift. No extra-axial fluid collection. Paranasal sinuses and mastoid air cells clear. Calvarium intact. IMPRESSION: 1. Chronic small vessel ischemic change. No acute intracranial abnormality. Electronically signed by: George Conklin M.D. 06/26/2019 8:12 PM
[2019-06-26] MEDS ORDERED: NovoLIN-R INSULIN PER UNIT CHARGE IV STA (20:22)
--- NOTE | 2019-06-26 22:38 | History & Physical Report ---
Date of Service June 26, 2019 Assessment & Plan (1) Aphasia: 79-year-old female was admitted on 26 June 2019 for episodes of expressive aphasia over the past three days. Expressive aphasia, gait instability: Patient notes the same over the past 72 hours lasting for a few seconds at a time. Concurrent sudden onset of headaches that seem to resolve quickly with resolved aphasia. At time of H&P, she is asymptomatic. No acute focal neuro deficits on exam. - In the ED, afebrile, not tachycardic, highest BP 186/67, normal room SpO2. WBC 13. INR 1.0. TnI negative. UA is dirty and urine culture sent. CT head non-contrast notes chronic small vessel ischemic change and no acute intracranial abnormality. - Will order an MRA of the head non-contrast (due to elevated creatinine). Carotid Doppler ultrasound as well. Neurology consult. NPO initially with IVF hydration. Dementia, recent history of subdural hematoma, chronic BUE likely benign essential tremor: Per neurology note, very tiny SDH s/p fall back around 03Jul. Known underlying dementia, question of Alzheimer's type per . Chronic cerebral ischemia seen on previous MRI. Usually has follow-up with Dr. Archer of neurology. Hyperglycemia, DM 2: Initial glucose 376 without an anion gap. At home is on g limepiride and Lantus (recently increased from 5 to 10 units daily). - In ED was treated with 4 units of insulin. - Will place on insulin sliding scale to get an idea of her insulin requirements. Anemia: Admit Hb 11.2, with recent comparisons in same range. Hypomagnesemia: Admit Mg 1.6. Will replace and recheck in a.m. Ongoing medical issues: - Hypertension, hyperlipidemia: Continue home atorvastatin, digoxin, diltiazem, losartanhydrochlorothiazide, metoprolol. --- Will increase her atorvastatin from 20 to 40 mg such that it is high intensity. - Chronic kidney disease stage III: Admit creatinine 1.71, with baseline perhaps 1.5. - Paroxysmal atrial fibrillation: Diagnosed in March 2019. S/p cardioversion in April. Recently started back on both her apixaban and aspirin. --- Will hold both acutely. Defer to neurology recommendations on if to restart. - Hypothyroidism s/p thyroidectomy: Continue home Synthroid. - Chronic gastritis: Continue home famotidine and rabeprazole. - Depression, anxiety: Continue home duloxetine. - Obstructive sleep apnea: Patient says she should be on CPAP but does not at home. Will trial it here. Code status: Full code. Diet: NPO except meds for now. DVT prophy: SCDs acutely. PT/OT: Ordered. Disbo: Admit to med surg with telemetry. (2) Gait instability: (3) Dementia: (4) Tremor: (5) Hyperglycemia: (6) Diabetes mellitus: (7) Anemia: (8) Hypomagnesemia: (9) HLD (hyperlipidemia): (10) HTN (hypertension): (11) CKD (chronic kidney disease) stage 3, GFR 30-59 ml/min: (12) Paroxysmal atrial fibrillation: (13) Hypothyroid: (14) Chronic gastritis: (15) Depression: (16) Anxiety: (17) LUZMA (obstructive sleep apnea): History of Present Illness Primary Care Provider: Jack Holloway MD 79-year-old female presents with her with concerns about episodes of difficulty speaking and with her gait. She says she first noticed the symptoms on Thursday with no history of the same. She would go to speak but have difficulty getting her words out for a few seconds. On some of those occasions she describes as severe sudden generalized headache as well as "charley horses" on her bilateral sides of her neck. She also notes some feeling of gait instability around those times as well. She says during the interval time periods she was asymptomatic. She denies any associated difficulties with vision, unilateral weakness or numbness, associated falls or injuries, or other concurrent concerns. Of note, patient did suffer a fall around 03Jul that was likely the cause of a small right subdural hematoma. Please see related neurology consults and discharge summary in May. She says that she restarted aspirin a couple days ago and her apixaban yesterday (10Aug) as related to her diagnosis of paroxysmal A. fib back in March 2019. - Past medical history includes hypertension, hyperlipidemia, chronic gastritis, obstructive sleep apnea, chronic kidney disease stage III, diabetes, hypothyroidism, paroxysmal atrial fibrillation, depression and anxiety, bowel perforation, diverticular disease, hiatal hernia, intestinal obstruction, irritable bowel syndrome, macular degeneration, obesity, osteoarthritis, restless leg syndrome, transient ischemic attack, subdural hematoma, chronic bilateral upper extremity tremor, mild dementia. - Past surgical history includes total thyroidectomy, hysterectomy, back surgery, bowel resection, cardiac cath, hiatal hernia repair, rotator cuff repair, hand surgery, carotid endarterectomy, cholecystectomy, breast lumpectomy. - Social history includes non-smoker, non-drinker, and lives at home with her . Allergies Allergy/AdvReac Type Severity Reaction Status Date / Time adhesive Allergy Mild red/blistered Verified 06/26/19 20:57 skin latex Allergy Mild CONTACT Verified 06/26/19 20:57 DERMATITIS carvedilol Allergy Unknown pt unsure, Verified 06/26/19 20:57 listed prior acetaminophen [From Percocet] Allergy Unknown Verified 06/26/19 20:57 gabapentin Allergy Unknown Verified 06/26/19 20:57 ranitidine [From Zantac] Allergy Unknown Verified 06/26/19 20:57 omeprazole AdvReac Intermediate HALLUCINATI Verified 06/26/19 20:57 ONS oxycodone AdvReac Intermediate itching Verified 06/26/19 20:57 phenobarbital AdvReac Intermediate HALLUCINATI Verified 06/26/19 20:57 ONS cephalexin AdvReac Mild DIARRHEA Verified 06/26/19 20:57 fentanyl AdvReac Mild altered Verified 06/26/19 20:57 mental status levofloxacin AdvReac Mild DIARRHEA Verified 06/26/19 20:57 meperidine AdvReac Mild HEADACHES Verified 06/26/19 20:57 metformin AdvReac Mild DIARRHEA Verified 06/26/19 20:57 Sulfa (Sulfonamide AdvReac Mild DIARRHEA Verified 06/26/19 20:57 Antibiotics) fluoxetine AdvReac Unknown Unknown Verified 06/26/19 20:57 Home Medications Home Medications Medication Instructions Recorded Confirmed Type aspirin [Aspirin Low Dose] 81 mg PO HS 07/21/18 06/26/19 History atorvastatin 20 mg PO QAM 07/21/18 06/26/19 History levothyroxine 88 mcg PO QAM 07/21/18 06/26/19 History multivitamin 1 cap PO QAM 07/21/18 06/26/19 History rabeprazole [AcipHex] 20 mg PO QAM 07/21/18 06/26/19 History ascorbic acid (vitamin C) [Vitamin 500 mg PO QAM 02/23/19 06/26/19 History C] cholecalciferol (vitamin D3) 1,000 unit PO QAM 02/23/19 06/26/19 History [Vitamin D3] losartan-hydrochlorothiazide 1 tab PO QAM 03/01/19 06/26/19 History glimepiride 2 mg tablet 2 mg PO BID #180 tab 04/26/19 06/26/19 Rx diltiazem ER 120 mg capsule,24 120 mg PO QAM #30 cap 05/23/19 06/26/19 Rx hr,extended release cyclosporine 0.05 % eye drops in a 1 drp OPB UD ea 06/07/19 06/26/19 History dropperette peg 3350-electrolytes 236 1 ml PO UD #1 ml 06/07/19 06/26/19 History gram-22.74 gram-6.74 gram-5.86 gram solution insulin glargine (U-100) 100 10 units SQ DAILY #15 ml 06/08/19 06/26/19 Rx unit/mL (3 mL) subcutaneous pen apixaban 5 mg tablet 5 mg PO BID 06/17/19 06/26/19 History digoxin 125 mcg tablet 125 mcg PO DAILY 06/17/19 06/26/19 History duloxetine 60 mg capsule,delayed 60 mg PO DAILY #90 cap 06/17/19 06/26/19 Hi story release famotidine 20 mg tablet 20 mg PO BID 06/17/19 06/26/19 History metoprolol tartrate 100 mg tablet 125 mg PO BID tab 06/17/19 06/26/19 History Past Med/Surg History Medical History Chronic gastritis HLD (hyperlipidemia) LUZMA (obstructive sleep apnea) NO DEVICE HTN (hypertension) (Acute) CKD (chronic kidney disease) stage 3, GFR 30-59 ml/min Diabetes mellitus (Acute) Hypothyroid 2/2 thyroidectomy Paroxysmal atrial fibrillation CURRENTLY AND SCHEDULED FOR CARDIOVERSION Anxiety Benign essential tremor Bowel perforation Depression Diverticular disease HX DIVERTICULITIS PER RECORDS GERD (gastroesophageal reflux disease) Hiatal hernia History of blood transfusion POST-OP ROEB History of palpitations Hx of intestinal obstruction 50 YEARS AGO PER RECORDS IBS (irritable bowel syndrome) Macular degeneration Obesity Osteoarthritis RLS (restless legs syndrome) Transient ischemic attack (TIA) 03/2018 Surgical History Family history of reaction to anesthesia SON-HARD TIME WAKING UP. H/O total thyroidectomy H/O: hysterectomy History of back surgery LUMBAR DISCECTOMY History of blepharoplasty History of bowel resection History of cardiac cath X2 TOTAL (10+ YEARS AGO)= NO STENTS History of herniorrhaphy VENTRAL HERNIA History of inguinal hernia repair X3 (CHILD) History of laryngoscopy REMOVAL OF POLYPS History of repair of hiatal hernia 02/2019 History of repair of rotator cuff RIGHT X3, LEFT X 1 History of tubal ligation Hx of hand surgery LUMP REMOVED FROM RIGHT HAND Previous section X3 S/P appendectomy S/P carotid endarterectomy RIGHT S/P cholecystectomy S/P lumpectomy of breast RIGHT Family History Son Family history of reaction to anesthesia SLOW TO WAKE Brother Family history of diabetes mellitus Sister Family history of diabetes mellitus Mother Family history of diabetes mellitus Uncle Family hx of colon cancer X 3 Social History Preferred Language: Hebrew Communication Ability: Effective Refinisher Required: No Beliefs That Will Affect Care: None marital status: Current Living Situation: Spouse Feels Safe at Home: Yes Smoking Status: Never smoker Second Hand Exposure: No ; Hx Alcohol Use: No Hx Substance Use: No Review of Systems Review of Systems: Constitutional: Denies fevers, chills, focal weakness Eyes: Denies any visual loss or diplopia ENT: Denies any ear/nose/throat pain or difficulty swallowing Respiratory: Denies any dyspnea, cough, hemoptysis Cardiovascular: Denies any chest pain or feeling of edema Gastrointestinal: Denies any abdominal pain, nausea/vomiting/diarrhea Musculoskeletal: Denies any acute extremity pains, myalgias, or focal weakness Skin: Denies any known acute rashes or lesions Neuro: See HPI. Physical Exam Physical Exam: GENERAL: Awake, alert, well-appearing, in no acute distress. She is minimally confused, with some hesitation on the dates and initially said she was in the incorrect city but quickly corrected herself. HENT: Normocephalic, atraumatic. Oropharynx a bit dry but appears to be swallowing well. EYES: Normal conjunctiva. Sclera non-icteric. PERRL, EOMI without photophobia or difficulty. NECK: Inspection normal. Supple and full ROM. No nuchal rigidity. Endarterectomy scar. CARDIAC: +S1S2 RRR, no murmurs. Bilateral carotid bruits. RESPIRATORY: Clear to auscultation. No wheezes or rales. Normal respiratory effort. GI: +BS, soft, non-distended. No tenderness to palpation. No rebound or guarding. EXTREMITIES: No pedal edema or calf tenderness. Moving all extremities naturally and easily. NEURO: CN II through XII intact (IX not checked). Strength 5/5 in all extremities. Some mild numbness along the right lateral calf and lateral 3 toes. Otherwise sensation equal and intact bilaterally. Positive bilateral resting upper extremity tremor. Results & Data Vital Signs (Past 12 Hours) Vital Signs Temp Pulse Pulse Resp BP BP Pulse Ox 06/26/19 22:00 80 16 194/61 H 96 06/26/19 20:14 72 16 103/82 97 06/26/19 19:13 36.5 C 71 18 186/67 H 97 Laboratory Results Laboratory Results WBC 13.12 K/uL (4.8-10.8) H 06/26/19 19: RBC 3.56 M/uL (4.2-5.4) L 06/26/19 19:26 Hgb 11.2 g/dL (12.0-16.0) L 06/26/19 19: Hct 33.9 % (37-47) L 06/26/19 19: MCV 95.2 fL (80-100) 06/26/19 19: MCH 31.5 pg (25-34) 06/26/19 19: MCHC 33.0 g/dL (32-36) 06/26/19 19: RDW Std Deviation 48.4 fL (36.4-46.3) H 06/26/19 19: RDW Coeff of Michael 13.9 % (11.5-14.5) 06/26/19 19: Plt Count 280 K/uL (130-400) 06/26/19 19: MPV 10.4 fL (7.4-10.4) 06/26/19 19: Immature Gran % (Auto) 0.2 % 06/26/19 19: Neut % (Auto) 81.5 % 06/26/19 19: Lymph % (Auto) 11.1 % 06/26/19 19:26 [place] % (Auto) 5.3 % 06/26/19 19: Eos % (Auto) 1.7 % 06/26/19 19: Baso % (Auto) 0.2 % 06/26/19 19: Immature Gran # (Auto) 0.03 K/uL (0.00-0.02) H 06/26/19 19: Neut # (Auto) 10.71 K/uL (1.4-6.5) H 06/26/19 19: Lymph # (Auto) 1.45 K/uL (1.2-3.4) 06/26/19: [place] # (Auto) 0.69 K/uL (0.11-0.59) H 06/26/19 19: Eos # (Auto) 0.22 K/uL (0-0.5) 06/26/19: Baso # (Auto) 0.02 K/uL (0-0.2) 06/26/19 19: PT 10.3 Seconds (9.0-12.0) 06/26/19 19: INR 1.0 (0.9-1.1) 06/26/19: APTT 31.1 Seconds (21.0-31.0) H 06/26/19: PTT Ratio 1.1 06/26/19 19: Sodium 134 mmol/L (136-145) L 06/26/19 19: Potassium 5.1 mmol/L (3.5-5.1) 06/26/19: Chloride 101 mmol/L (98-107) 06/26/19 19: Carbon Dioxide 25 mmol/L (21-32) 06/26/19 19: Anion Gap 8.0 (3-11) 06/26/19 19:26 BUN 32 mg/dl (7-18) H 06/26/19 19: Creatinine 1.71 mg/dl (0.6-1.2) H 06/26/19 19: Est Cr Clr Drug Dosing 23.8 ml/min 06/26/19 19:26 Est GFR ( Amer) 32.2 06/26/19 19:26 Est GFR (Non-Af Amer) 27.8 06/26/19 19:26 BUN/Creatinine Ratio 18.6 (10-20) 06/26/19 19:26 Glucose 376 mg/dl (70-99) H* 06/26/19 19:26 POC Glucose 336 (70-99) H* 06/26/19 22:26 Calcium 8.3 mg/dl (8.5-10.1) L 06/26/19 19:26 Magnesium 1.6 mg/dl (1.8-2.4) L 06/26/19 19:26 Total Bilirubin 0.3 mg/dl (0.2-1) 06/26/19 19:26 AST 11 U/L (15-37) L 06/26/19 19:26 ALT 19 U/L (12-78) 06/26/19 19:26 Alkaline Phosphatase 112 U/L (45-117) 06/26/19 19:26 Troponin I < 0.015 ng/ml (0-0.045) 06/26/19 19:26 Total Protein 7.5 gm/dl (6.4-8.2) 06/26/19 19:26 Albumin 3.6 gm/dl (3.4-5.0) 06/26/19 19:26 Globulin 3.9 gm/dl (2.5-4.0) 06/26/19 19: Albumin/Globulin Ratio 0.9 (0.9-2) 06/26/19 19:26 Beta-Hydroxybutyric Acd 2.19 mg/dl (0.2-2.81) 06/26/19 19:26 Urine Color Yellow 06/26/19 19:34 Urine Appearance Cloudy (Clear) A 06/26/19 19:34 Urine pH 5.0 (4.5-7.5) 06/26/19 19:34 Ur Specific [place] 1.024 (1.000-1.030) 06/26/19 19:34 Urine Protein 1+ (Negative) H 06/26/19 19:34 Urine Glucose (UA) Negative (Negative) 06/26/19 19:34 Urine Ketones Trace (Negative) H 06/26/19 19:34 Urine Blood Negative (Negative) 06/26/19 19:34 Urine Nitrite Negative (Negative) 06/26/19 19:34 Urine Bilirubin Negative (Negative) 06/26/19 19:34 Urine Urobilinogen Negative (Negative) 06/26/19 19:34 Ur Leukocyte Esterase 2+ (Negative) H 06/26/19 19:34 Urine WBC (Auto) >30 /hpf (0-5) H 06/26/19 19:34 Urine RBC (Auto) 0-4 /hpf (0-4) 06/26/19 19:34 U Hyaline Cast (Auto) 5-10 /lpf (0-5) H 06/26/19 19:34 U Epithel Cells (Auto) >30 /lpf (0-5) H 06/26/19 19:34 Urine Bacteria (Auto) Negative (Negative) 06/26/19 19:34 Blood Type O Positive 06/26/19 19:49 Antibody Screen NEGATIVE 06/26/19 19:49 Medications Administered Discontinued Medications Insulin Human Regular (Novolin R U-100 Per Unit) 4 units IV NOW STA Stop: 06/26/19 20:23 Last Admin: 06/26/19 20:42 Dose: 4 units Documented by: [id number] Cosigned by: [id number] Code Status & VTE Plan Code Status Full code VTE Prophylaxis Plan VTE Prophylaxis will be ordered: Yes Supervising Physician Co-Signing Physician Notes Attending addendum: I have physically seen this patient, have supervised the medical residents activities, and agree with the H&P unless as otherwise noted. Assessment and Plan: TIA/expressive aphasia/gait instability- Symptoms intermittent over the past 72 hours. The patient will be admitted to telemetry for serial cardiac enzymes, serial EKG's, cardiac rhythm monitoring and a 2-D echocardiogram with Dopplers. CT head shows resolution of previous subdural hematoma, and no new areas of hemorrhage. AWILDA on CKD prevents use of IV diet this time. Order MRI brain without contrast, MRA of head without contrast, and carotid Dopplers. Stroke without TPA order set protocol. Continue aspirin. Hold apixaban. Consult neurology. Hyperlipidemia- We will increase atorvastatin to high intensity dosing from 20 to 40 mg. Remainder of orders and notations as noted. PG Care Time/CCT Total # of Minutes Spent Total Time Spent with Patient: Total time spent is greater than 50% in coordination of care (as documented) at patient's floor/unit and/or counseling patient: Resident Activity Tracking Resident Involvement: Resident Care Provided Care Provided: Adult [facility] Medicine (1) Diabetes mellitus Diabetes mellitus complication status: with other specified complication Diabetes mellitus correction insulin use: unspecified terminal manager insulin use status Diabetes mellitus type: other specified (including CHARMAINE) Qualified Code(s): E13.69 - Other specified diabetes mellitus with other specified complication (2) HTN (hypertension) Hypertension type: unspecified Qualified Code(s): I10 - Essential (primary) hypertension
--- NOTE | 2019-06-26 23:56 | Emergency Department Note ---
Entered by Stacy Lynch acting as a scribe for History of Present Illness General Chief complaint: Hyperglycemia Stated complaint: HIGH BLOOD SUGAR Source: patient and family () Limitations: no limitations History of Present Illness Onset (ago): hour(s) (8.5) Location: head Pain Consistency: + other (persistent) Quality: + other (weakness) Associated symptoms: + denies other symptoms (urinary symptoms, abd pain), + cough, + headaches and + other (rhinorrhea, diffuculty walking, difficulty finding her words) The patient is an 79 year old female with a PMHx of DVT, HLD, HTN, CKD, and diabetes who presents to the Emergency Room with complaints of persistent weakness that began at 11:00, about 8.5 hours ago. The patient reports that she had a brain hemorrhage 5 weeks ago after a fall. She complains of difficulty finding her words and trouble walking. The patient's , at bedside, reports that the patient has been speaking softly. She complains of a headache, stating that she "feels like her head is going to explode." The patient complains of a cough and rhinorrhea, noting that both symptoms began a few days ago. She complains of neck pain. The patient denies any urinary symptoms and abdominal pain. She reports that she her blood sugar was in the 400s earlier today, so she had 10 units of insulin. Home Medications Home Medications Medication Instructions Recorded Confirmed Type aspirin [Aspirin Low Dose] 81 mg PO HS 07/21/18 06/26/19 History atorvastatin 20 mg PO QAM 07/21/18 06/26/19 History levothyroxine 88 mcg PO QAM 07/21/18 06/26/19 History multivitamin 1 cap PO QAM 07/21/18 06/26/19 History rabeprazole [AcipHex] 20 mg PO QAM 07/21/18 06/26/19 History ascorbic acid (vitamin C) [Vitamin 500 mg PO QAM 02/23/19 06/26/19 History C] cholecalciferol (vitamin D3) 1,000 unit PO QAM 02/23/19 06/26/19 History [Vitamin D3] losartan-hydrochlorothiazide 1 tab PO QAM 03/01/19 06/26/19 History glimepiride 2 mg tablet 2 mg PO BID #180 tab 04/26/19 06/26/19 Rx diltiazem ER 120 mg capsule,24 120 mg PO QAM #30 cap 05/23/19 06/26/19 Rx hr,extended release cyclosporine 0.05 % eye drops in a 1 drp OPB UD ea 06/07/19 06/26/19 History dropperette peg 3350-electrolytes 236 1 ml PO UD #1 ml 06/07/19 06/26/19 History gram-22.74 gram-6.74 gram-5.86 gram solution insulin glargine (U-100) 100 10 units SQ DAILY #15 ml 06/08/19 06/26/19 Rx unit/mL (3 mL) subcutaneous pen apixaban 5 mg tablet 5 mg PO BID 06/17/19 06/26/19 History digoxin 125 mcg tablet 125 mcg PO DAILY 06/17/19 06/26/19 History duloxetine 60 mg capsule,delayed 60 mg PO DAILY #90 cap 06/17/19 06/26/19 History release famotidine 20 mg tablet 20 mg PO BID 06/17/19 06/26/19 History metoprolol tartrate 100 mg tablet 125 mg PO BID tab 06/17/19 06/26/19 History Allergies Allergy/AdvReac Type Severity Reaction Status Date / Time adhesive Allergy Mild red/blistered Verified 06/26/19 20:57 skin latex Allergy Mild CONTACT Verified 06/26/19 20:57 DERMATITIS carvedilol Allergy Unknown pt unsure, Verified 06/26/19 20:57 listed prior acetaminophen [From Percocet] Allergy Unknown Verified 06/26/19 20:57 gabapentin Allergy Unknown Verified 06/26/19 20:57 ranitidine [From Zantac] Allergy Unknown Verified 06/26/19 20:57 omeprazole AdvReac Intermediate HALLUCINATI Verified 06/26/19 20:57 ONS oxycodone AdvReac Intermediate itching Verified 06/26/19 20:57 phenobarbital AdvReac Intermediate HALLUCINATI Verified 06/26/19 20:57 ONS cephalexin AdvReac Mild DIARRHEA Verified 06/26/19 20:57 fentanyl AdvReac Mild altered Verified 06/26/19 20:57 mental status levofloxacin AdvReac Mild DIARRHEA Verified 06/26/19 20:57 meperidine AdvReac Mild HEADACHES Verified 06/26/19 20:57 metformin AdvReac Mild DIARRHEA Verified 06/26/19 20:57 Sulfa (Sulfonamide AdvReac Mild DIARRHEA Verified 06/26/19 20:57 Antibiotics) fluoxetine AdvReac Unknown Unknown Verified 06/26/19 20:57 Past Med/Surg History Medical History Chronic gastritis HLD (hyperlipidemia) LUZMA (obstructive sleep apnea) NO DEVICE HTN (hypertension) (Acute) CKD (chronic kidney disease) stage 3, GFR 30-59 ml/min Diabetes mellitus (Acute) Hypothyroid 2/2 thyroidectomy Paroxysmal atrial fibrillation CURRENTLY AND SCHEDULED FOR CARDIOVERSION Anxiety Benign essential tremor Bowel perforation Depression Diverticular disease HX DIVERTICULITIS PER RECORDS GERD (gastroesophageal reflux disease) Hiatal hernia History of blood transfusion POST-OP ROBE History of palpitations Hx of intestinal obstruction 50 YEARS AGO PER RECORDS IBS (irritable bowel syndrome) Macular degeneration Obesity Osteoarthritis RLS (restless legs syndrome) Transient ischemic attack (TIA) 03/2018 Surgical History Family history of reaction to anesthesia SON-HARD TIME WAKING UP. H/O total thyroidectomy H/O: hysterectomy History of back surgery LUMBAR DISCECTOMY History of blepharoplasty History of bowel resection History of cardiac cath X2 TOTAL (10+ YEARS AGO)= NO STENTS History of herniorrhaphy VENTRAL HERNIA History of inguinal hernia repair X3 (CHILD) History of laryngoscopy REMOVAL OF POLYPS History of repair of hiatal hernia 02/2019 History of repair of rotator cuff RIGHT X3, LEFT X 1 History of tubal ligation Hx of hand surgery LUMP REMOVED FROM RIGHT HAND Previous section X3 S/P appendectomy S/P carotid endarterectomy RIGHT S/P cholecystectomy S/P lumpectomy of breast RIGHT Family History Son Family history of reaction to anesthesia SLOW TO WAKE Brother Family history of diabetes mellitus Sister Family history of diabetes mellitus Mother Family history of diabetes mellitus Uncle Family hx of colon cancer X 3 Social History Preferred Language: Kiswahili Communication Ability: Effective Prop Sawyer Required: No Beliefs That Will Affect Care: None marital status: Current Living Situation: Spouse Feels Safe at Home: Yes Smoking Status: Never smoker Second Hand Exposure: No ; Hx Alcohol Use: No Hx Substance Use: No Review of Systems See HPI for pertinent positives & negatives. and A total of 10 systems reviewed and were otherwise negative Physical Exam Vital Signs Vital Signs - 24 hr 06/26/19 19:13 06/26/19 20:14 06/26/19 22:00 Temperature 36.5 C Temperature Source Oral Sepsis Recent Fever Within 48 Hours No Sepsis Action Taken by Nursing No Action Required Pulse Rate 71 Pulse Rate [Right Finger] 72 80 Pulse Rhythm [Right Finger] Regular Regular Pulse Strength [Right Finger] Normal Normal Respiratory Rate 18 16 16 Respiratory Effort / Characteristics Non-Labored Spontaneous Non-Labored Non-Labored Respiratory Depth Normal Normal Normal Respiratory Pattern Regular Regular Blood Pressure 186/67 H Blood Pressure [Right Arm] 103/82 194/61 H Blood Pressure Mean 106 Blood Pressure Mean [Right Arm] 89 105 Blood Pressure Position [Right Arm] Lying Lying Pulse Oximetry 97 97 96 Oxygen Delivery Method Room Air Room Air Room Air GENERAL: sitting up in bed, disheveled, non toxic EYE EXAM: normal conjunctiva OROPHARYNX: no exudate, no erythema, lips, buccal mucosa, and tongue normal and mucous membranes are moist NECK: supple, no nuchal rigidity, no adenopathy, non-tender LUNGS: Clear to auscultation. Normal chest wall mechanics HEART: no murmurs, S1 normal and S2 normal ABDOMEN: abdomen soft, non-tender, normo-active bowel sounds, no masses, no rebound or guarding. BACK: Back is symmetrical on inspection and there is no deformity, no midline tenderness, no CVA tenderness. SKIN: no rashes and no bruising UPPER EXTREMITIES: Tremors in the upper extremities with movement. LOWER EXTREMITIES: No pitting edema. NEURO EXAM: Cranial nerves II-XII grossly intact, normal speech, no gross weakness of arms, no gross weakness of legs. No drift. Finger to nose intact. Gross sensation intact. Awake, alert, following commands. Appears disoriented. Course ED COURSE: Vital signs were reviewed and showed hypertension. The patients medical record was reviewed. She had a subdural hematoma on May 31, 2019. The above diagnostic studies were performed and reviewed. ED treatments and interventions as stated above. 1920: The patient was evaluated in room A10. A complete history and physical examination was performed. 1949: I reevaluated the patient. 2014: The patient is having left-sided facial tingling. 2037: I spoke with Dr. Rik Britton, [facility] hospitalist, about the patients case. He will further evaluate the patient. 2048: Upon reevaluation, the patient is stable.I discussed my findings with the patient and she understands and agrees with the treatment plan. Based on the patients age, coexisting illnesses, exam and lab findings the decision to treat as an inpatient was made. The patient remained stable while under my care. The patient will be evaluated for further management. Consultations Consultation #1: I spoke with Dr. Rik Britton, [facility] hospitalist, about the patients case. He will further evaluate the patient. Time: 20:38 Administered Medications Discontinued Medications Insulin Human Regular (Novolin R U-100 Per Unit) 4 units IV NOW STA Stop: 06/26/19 20:23 Last Admin: 06/26/19 20:42 Dose: 4 units Documented by: [id number] Cosigned by: [id number] Medical Decision Making Differential Diagnosis Differential Diagnosis includes but is not limited to ischemic Stroke, hemorrhagic stroke, bells palsy, mass, neoplasm, migraine headache, seizure, subarachnoid hemorrhage, TIA, and transient global amnesia. Medical Records Attestation: I reviewed the patient's medical records. Home Medications Current Medication List: was personally reviewed by me Laboratory Data Attestation: I reviewed the patient's lab results. Result diagrams: 06/26/19 19:26 06/26/19 19:26 Lab Results 06/26/19 06/26/19 06/26/19 Range/Units 19:22 19:26 19:26 WBC 13.12 H (4.8-10.8) K/uL RBC 3.56 L (4.2-5.4) M/uL Hgb 11.2 L (12.0-16.0) g/dL Hct 33.9 L (37-47) % MCV 95.2 (80-100) fL MCH 31.5 (25-34) pg MCHC 33.0 (32-36) g/dL RDW Std Deviation 48.4 H (36.4-46.3) fL RDW Coeff of Michael 13.9 (11.5-14.5) % Plt Count 280 (130-400) K/uL MPV 10.4 (7.4-10.4) fL Immature Gran % (Auto) 0.2 % Neut % (Auto) 81.5 % Lymph % (Auto) 11.1 % Dewitt % (Auto) 5.3 % Eos % (Auto) 1.7 % Baso % (Auto) 0.2 % Immature Gran # (Auto) 0.03 H (0.00-0.02) K/uL Neut # (Auto) 10.71 H (1.4-6.5) K/uL Lymph # (Auto) 1.45 (1.2-3.4) K/uL Dewitt # (Auto) 0.69 H (0.11-0.59) K/uL Eos # (Auto) 0.22 (0-0.5) K/uL Baso # (Auto) 0.02 (0-0.2) K/uL PT 10.3 (9.0-12.0) Seconds INR 1.0 (0.9-1.1) APTT 31.1 H (21.0-31.0) Seconds PTT Ratio 1.1 Sodium (136-145) mmol/L Potassium (3.5-5.1) mmol/L Chloride (98-107) mmol/L Carbon Dioxide (21-32) mmol/L Anion Gap (3-11) BUN (7-18) mg/dl Creatinine (0.6-1.2) mg/dl Est Cr Clr Drug Dosing ml/min Est GFR ( Amer) Est GFR (Non-Af Amer) BUN/Creatinine Ratio (10-20) Glucose (70-99) mg/dl POC Glucose 371 H* (70-99) Calcium (8.5-10.1) mg/dl Magnesium (1.8-2.4) mg/dl Total Bilirubin (0.2-1) mg/dl AST (15-37) U/L ALT (12-78) U/L Alkaline Phosphatase (45-117) U/L Troponin I (0-0.045) ng/ml Total Protein (6.4-8.2) gm/dl Albumin (3.4-5.0) gm/dl Globulin (2.5-4.0) gm/dl Albumin/Globulin Ratio (0.9-2) Beta-Hydroxybutyric Acd (0.2-2.81) mg/dl Urine Color Urine Appearance (Clear) Urine pH (4.5-7.5) Ur Specific [place] (1.000-1.030) Urine Protein (Negative) Urine Glucose (UA) (Negative) Urine Ketones (Negative) Urine Blood (Negative) Urine Nitrite (Negative) Urine Bilirubin (Negative) Urine Urobilinogen (Negative) Ur Leukocyte Esterase (Negative) Urine WBC (Auto) (0-5) /hpf Urine RBC (Auto) (0-4) /hpf U Hyaline Cast (Auto) (0-5) /lpf U Epithel Cells (Auto) (0-5) /lpf Urine Bacteria (Auto) (Negative) Blood Type Antibody Screen 06/26/19 06/26/19 06/26/19 Range/Units 19:26 19:34 19:49 WBC (4.8-10.8) K/uL RBC (4.2-5.4) M/uL Hgb (12.0-16.0) g/dL Hct (37-47) % MCV (80-100) fL MCH (25-34) pg MCHC (32-36) g/dL RDW Std Deviation (36.4-46.3) fL RDW Coeff of Michael (11.5-14.5) % Plt Count (130-400) K/uL MPV (7.4-10.4) fL Immature Gran % (Auto) % Neut % (Auto) % Lymph % (Auto) % Dewitt % (Auto) % Eos % (Auto) % Baso % (Auto) % Immature Gran # (Auto) (0.00-0.02) K/uL Neut # (Auto) (1.4-6.5) K/uL Lymph # (Auto) (1.2-3.4) K/uL Dewitt # (Auto) (0.11-0.59) K/uL Eos # (Auto) (0-0.5) K/uL Baso # (Auto) (0-0.2) K/uL PT (9.0-12.0) Seconds INR (0.9-1.1) APTT (21.0-31.0) Seconds PTT Ratio Sodium 134 L (136-145) mmol/L Potassium 5.1 (3.5-5.1) mmol/L Chloride 101 (98-107) mmol/L Carbon Dioxide 25 (21-32) mmol/L Anion Gap 8.0 (3-11) BUN 32 H (7-18) mg/dl Creatinine 1.71 H (0.6-1.2) mg/dl Est Cr Clr Drug Dosing 23.8 ml/min Est GFR ( Amer) 32.2 Est GFR (Non-Af Amer) 27.8 BUN/Creatinine Ratio 18.6 (10-20) Glucose 376 H* (70-99) mg/dl POC Glucose (70-99) Calcium 8.3 L (8.5-10.1) mg/dl Magnesium 1.6 L (1.8-2.4) mg/dl Total Bilirubin 0.3 (0.2-1) mg/dl AST 11 L (15-37) U/L ALT 19 (12-78) U/L Alkaline Phosphatase 112 (45-117) U/L Troponin I < 0.015 (0-0.045) ng/ml Total Protein 7.5 (6.4-8.2) gm/dl Albumin 3.6 (3.4-5.0) gm/dl Globulin 3.9 (2.5-4.0) gm/dl Albumin/Globulin Ratio 0.9 (0.9-2) Beta-Hydroxybutyric Acd 2.19 (0.2-2.81) mg/dl Urine Color Yellow Urine Appearance Cloudy A (Clear) Urine pH 5.0 (4.5-7.5) Ur Specific [place] 1.024 (1.000-1.030) Urine Protein 1+ H (Negative) Urine Glucose (UA) Negative (Negative) Urine Ketones Trace H (Negative) Urine Blood Negative (Negative) Urine Nitrite Negative (Negative) Urine Bilirubin Negative (Negative) Urine Urobilinogen Negative (Negative) Ur Leukocyte Esterase 2+ H (Negative) Urine WBC (Auto) >30 H (0-5) /hpf Urine RBC (Auto) 0-4 (0-4) /hpf U Hyaline Cast (Auto) 5-10 H (0-5) /lpf U Epithel Cells (Auto) >30 H (0-5) /lpf Urine Bacteria (Auto) Negative (Negative) Blood Type O Positive Antibody Screen NEGATIVE 06/26/19 Range/Units 20:42 WBC (4.8-10.8) K/uL RBC (4.2-5.4) M/uL Hgb (12.0-16.0) g/dL Hct (37-47) % MCV (80-100) fL MCH (25-34) pg MCHC (32-36) g/dL RDW Std Deviation (36.4-46.3) fL RDW Coeff of Michael (11.5-14.5) % Plt Count (130-400) K/uL MPV (7.4-10.4) fL Immature Gran % (Auto) % Neut % (Auto) % Lymph % (Auto) % Dewitt % (Auto) % Eos % (Auto) % Baso % (Auto) % Immature Gran # (Auto) (0.00-0.02) K/uL Neut # (Auto) (1.4-6.5) K/uL Lymph # (Auto) (1.2-3.4) K/uL Dewitt # (Auto) (0.11-0.59) K/uL Eos # (Auto) (0-0.5) K/uL Baso # (Auto) (0-0.2) K/uL PT (9.0-12.0) Seconds INR (0.9-1.1) APTT (21.0-31.0) Seconds PTT Ratio Sodium (136-145) mmol/L Potassium (3.5-5.1) mmol/L Chloride (98-107) mmol/L Carbon Dioxide (21-32) mmol/L Anion Gap (3-11) BUN (7-18) mg/dl Creatinine (0.6-1.2) mg/dl Est Cr Clr Drug Dosing ml/min Est GFR ( Amer) Est GFR (Non-Af Amer) BUN/Creatinine Ratio (10-20) Glucose (70-99) mg/dl POC Glucose 337 H* (70-99) Calcium (8.5-10.1) mg/dl Magnesium (1.8-2.4) mg/dl Total Bilirubin (0.2-1) mg/dl AST (15-37) U/L ALT (12-78) U/L Alkaline Phosphatase (45-117) U/L Troponin I (0-0.045) ng/ml Total Protein (6.4-8.2) gm/dl Albumin (3.4-5.0) gm/dl Globulin (2.5-4.0) gm/dl Albumin/Globulin Ratio (0.9-2) Beta-Hydroxybutyric Acd (0.2-2.81) mg/dl Urine Color Urine Appearance (Clear) Urine pH (4.5-7.5) Ur Specific [place] (1.000-1.030) Urine Protein (Negative) Urine Glucose (UA) (Negative) Urine Ketones (Negative) Urine Blood (Negative) Urine Nitrite (Negative) Urine Bilirubin (Negative) Urine Urobilinogen (Negative) Ur Leukocyte Esterase (Negative) Urine WBC (Auto) (0-5) /hpf Urine RBC (Auto) (0-4) /hpf U Hyaline Cast (Auto) (0-5) /lpf U Epithel Cells (Auto) (0-5) /lpf Urine Bacteria (Auto) (Negative) Blood Type Antibody Screen Imaging Data Radiologist's Impression: Radiology results as stated below per my review and the radiologist's interpretation: CT head/brain wo con CLINICAL HISTORY: 79 years-old Female presenting with Stroke evaluation, left- sided facial numbness. TECHNIQUE: Multidetector CT imaging of the head was performed without the use of intravenous contrast. IV contrast: None. One or more dose lowering techniques were used consistent with the principles of ALARA (as low as reasonably achievable), including automatic exposure control, mA or kV adjustment to individual patient size, and/or use of iterative reconstruction. COMPARISON: 06/23/2019. CT DOSE (mGy.cm): The estimated cumulative dose is 537.48 mGy.cm. FINDINGS: E Commerce Analyst topogram: Unremarkable. Proportional ventricular and sulcal prominence, likely age-related parenchymal volume loss. No hemorrhage. Periventricular and subcortical white matter hypoattenuation, nonspecific but likely indicative of chronic small vessel ischemic change. Senescent calcification in the basal ganglia. No acute territorial infarct. No mass effect or midline shift. No extra-axial fluid collection. Paranasal sinuses and mastoid air cells clear. Calvarium intact. IMPRESSION: 1. Chronic small vessel ischemic change. No acute intracranial abnormality. Electronically signed by: George Conklin M.D. 06/26/2019 8:12 PM XR chest 1V portable CLINICAL HISTORY: 79 years-old Female presenting with ams. TECHNIQUE: Portable upright AP view of the chest was obtained. COMPARISON: 05/27/2019. FINDINGS: Atherosclerosis of the aortic arch. Cardiac silhouette enlarged. No focal opacity. No large effusion or pneumothorax. Leander noted in the left humeral head. Chronic widening of the AC joints. Degenerative changes of the spine. Upper abdomen normal. IMPRESSION: 1. Cardiomegaly. No other convincing evidence of acute cardiopulmonary disease. Electronically signed by: George Conklin M.D. 06/26/2019 8:03 PM ECG Data Attestation: I personally reviewed and interpreted this ECG as follows: Indication: weakness Rate (beats per minute): 73 Rhythm: sinus rhythm Findings: + other (ST depression in the high lateral leads) and + LBBB Comparison ECG Date: from (05/27/19) Change: no significant change Blood Pressure Blood Pressure Findings: Elevated blood pressure Blood Pressure Disposition: further management by hospitalist KATIE Narrative Patient is an 79-year-old female who presents the ER for confusion associated with some trouble talking and finding her words. Upon review the chart she was recently here and found to have a subdural which was decreasing in size. She is not on any blood thinners now. IVs were established blood work was obtained showed mild leukocytosis of 13,000. No significant anemia. PTT was slightly p rolonged. BMP with mild hyponatremia. Creatinine slightly increased at 1.7. Glucose was elevated 376. Patient was given IV insulin. No significant transaminitis. Troponin was negative. UA was contaminated with multiple epithelial cells. CT head was negative. Chest x-ray without any focal in filtrate. Patient was truly confused to her history and the did not have a clear history either. Patient eventually noted that she had some trouble expressing her words and may be some slurred speech. While she was in the ER she did note some paresthesias in the left side of her face. On repeat exam she is completely neurologically intact. On review of the chart it does not appear to be a component of dementia which does make sense. Due to the confusion white count and the concern for slurred speech, left-sided facial paresthesias and a fascia did discuss with the hospitalist for observation. Impression & Plan Altered mental status, Weakness, Slurred speech, Paresthesia, Tremor Discharge Plan Visit Data Chief Complaint: Hyperglycemia Stated Complaint: HIGH BLOOD SUGAR ED Provider: Toan Roman Discharge Problem: Altered mental status, Weakness, Slurred speech, Paresthesia, Tremor Patient Disposition: Being Evaluated by Hospitalist Discharge Instructions Interventions: ED Discharge Assessment Last Done: 06/26/19 23:38 The scribe's documentation has been prepared under my direction and personally reviewed by me in its entirety. I confirm that the note above accurately ref lects all work, treatment, procedures, and medical decision making performed by me.
[2019-06-27] MEDS ORDERED: DEXTROSE 50% 50 ML SYRINGE IV PRN (00:20)
[2019-06-27] MEDS ORDERED: GLUCOSE 40% GEL 15 GM TUBE PO PRN (00:20)
[2019-06-27] MEDS ORDERED: GLUCOSE 10 TABS/TUBE PO PRN (00:20)
[2019-06-27] MEDS ORDERED: CYCLOSPORINE OPB SCH (00:20)
[2019-06-27] MEDS ORDERED: PHARMACIST DISCHARGE MED REC CONSULT PRN (00:20)
[2019-06-27] MEDS ORDERED: CARBOHYDRATES FOR HYPOGLYCEMIA PO PRN (00:20)
[2019-06-27] MEDS ORDERED: ONDANSETRON INJ 2 MG/ML 2 ML VIAL IV PRN (00:20)
[2019-06-27] MEDS ORDERED: MAGNESIUM OXIDE 400 MG TAB PO ONE (00:20)
[2019-06-27] MEDS ORDERED: GLUCAGON FOR INJ 1 MG VIAL SQ PRN (00:20)
[2019-06-27] MEDS ORDERED: LORazepam 2 MG/4 ML VIAL ONE (01:13)
[2019-06-27] MEDS ORDERED: HALOPERIDOL LACTATE 5 MG/ML 1 ML VIAL ONE (01:14)
[2019-06-27] MEDS: LACTATED RINGER'S 1,000 ML IV SCH ×2 (01:48→15:24)
[2019-06-27] MEDS ORDERED: LORazepam 1 MG/2 ML VIAL IV STA (02:10)
[2019-06-27] MEDS ORDERED: HALOPERIDOL LACTATE 5 MG/ML 1 ML VIAL IM STA (02:15)
[2019-06-27] MEDS ORDERED: LEVOTHYROXINE SODIUM 88 MCG TABLET PO SCH (06:30)
--- NOTE | 2019-06-27 06:32 | Magnetic Resonance Report ---
MRI OF THE BRAIN WITHOUT CONTRAST CLINICAL HISTORY: aphasia symptoms COMPARISON STUDY: 05/11/2019 FINDINGS: Sagittal T1, axial diffusion, proton density and T2 weighted axial, coronal FLAIR, and axial T1-weigh esa images were acquired. No intra or extra-axial mass lesions are visualized Axial diffusion-weighted images reveal no evidence of acute or subacute infarction. There is mild ventricular prominence, finding which is felt to be secondary to volume loss Proton density T2-weighted and FLAIR images reveal scattered foci of increased T2 signal within the w carmen matter, likely on a small vessel basis. There are no abnormal flow voids. IMPRESSION: 1. No acute intracranial findings 2. No evidence of intracranial mass 3. No evidence of acute or subacute infarction Electronically signed by: Joe Michael M.D. 06/27/2019 6:31 AM
--- NOTE | 2019-06-27 07:07 | Ultrasound Report ---
ULTRASOUND OF THE CAROTID ARTERIES CLINICAL HISTORY: Aphasia. COMPARISON STUDY: No priors. TECHNIQUE: Real-time, grayscale, and color Doppler sonography of the carotid arteries is performed. I mages are reviewed in the transverse and longitudinal planes. FINDINGS: Blood pressure in the right arm measures 199/69 and blood pressure in the left arm measures 188/75. The carotid arteries are patent bilaterally and demonstrate antegrade flow. There is mild atheroscler otic plaque seen bilaterally. Normal doppler arterial waveforms are seen throughout. Velocity measure ments are listed below. Common carotid peak systolic velocity (cm/sec): RIGHT: 134 LEFT: 136 ICA proximal peak systolic velocity (cm/sec): RIGHT: 69 LEFT: 65 ICA mid peak systolic velocity (cm/sec): RIGHT: 83 LEFT: 70 ICA distal peak systolic velocity (cm/sec): RIGHT: 66 LEFT: 70 ICA/CC peak systolic ratio: RIGHT: 0.6 LEFT: 0.5 Antegrade flow was shown in the vertebral arteries. The external carotid arteries are patent. IMPRESSION: 1. There is no sonographic evidence of hemodynamically significant stenosis in the right or left michele tid arterial system. 2. Antegrade flow is shown in the vertebral arteries. Electronically signed by: Ridge Valerio M.D. 06/27/2019 7:05 AM
[2019-06-27 07:43] LABS: Basophils # (auto) 0.02 K/uL (0-0.2); Basophils % (auto) 0.2 %; Eosinophils # (auto) 0.13 K/uL (0-0.5); Eosinophils % (auto) 1.2 %; Hematocrit (blood only) 32.1 % (37-47); Hemoglobin 10.8 g/dL (12.0-16.0); Immature Granulocytes # (auto) 0.03 K/uL (0.00-0.02); Immature Granulocytes % (auto) 0.3 %; Lymphocytes # (auto) 1.47 K/uL (1.2-3.4); Lymphocytes % (auto) 13.8 %; Mean Corpuscular Hgb Conc 33.6 g/dL (32-36); Mean Corpuscular Volume 93.9 fL (80-100); Mean Platelet Volume 10.3 fL (7.4-10.4); Monocytes # (auto) 0.65 K/uL (0.11-0.59); Monocytes % (auto) 6.1 %; Neutrophils # (auto) 8.35 K/uL (1.4-6.5); Neutrophils % (auto) 78.4 %; Platelet Count 237 K/uL (130-400); RDW Coefficient of Variation 13.8 % (11.5-14.5); Red Blood Count 3.42 M/uL (4.2-5.4); White Blood Count 10.65 K/uL (4.8-10.8)
[2019-06-27 08:19] LABS: BUN Creatinine Ratio 17.6 (10-20); Calcium 8.3 mg/dl (8.5-10.1); Creatinine Clr Calc Pharmacy 31.2 ml/min; Est GFR (African American) 45.3; Est GFR (Non-African American) 39.1; Magnesium 1.7 mg/dl (1.8-2.4); Potassium 4.3 mmol/L (3.5-5.1)
[2019-06-27 08:49] LABS: Estimated Average Glucose 229 mg/dl; Hemoglobin A1C 9.6 % (4.5-5.6)
[2019-06-27] MEDS ORDERED: DULOXETINE HCL 60 MG CAP PO SCH (09:00)
[2019-06-27] MEDS ORDERED: CHOLECALCIFEROL 1,000 UNITS TAB PO SCH (09:00)
[2019-06-27] MEDS ORDERED: METOPROLOL TARTRATE 50 MG TAB PO SCH (09:00)
[2019-06-27] MEDS ORDERED: LOSARTAN/HCTZ 50/12.5MG TAB PO SCH (09:00)
[2019-06-27] MEDS ORDERED: dilTIAZem ER 120 MG CAPCR PO SCH (09:00)
[2019-06-27] MEDS ORDERED: FAMOTIDINE 20 MG TAB PO SCH (09:00)
[2019-06-27] MEDS ORDERED: PANTOprazole 40 MG TAB PO SCH (09:00)
[2019-06-27] MEDS ORDERED: ATORVASTATIN 40 MG TAB PO SCH (09:00)
[2019-06-27] MEDS ORDERED: MULTIVITAMIN TAB PO SCH (09:00)
[2019-06-27] MEDS: INSULIN ASPART 100 UNITS/ML 3 ML PEN SC SCH ×3 (10:07→17:50)
--- NOTE | 2019-06-27 10:42 | Neurology Consultation ---
Date of Consultation June 27, 2019 Assessment & Plan (1) Stroke-like symptoms: Resolved strokelike symptoms, may have been related to a combination of hyperglycemia and chronic cerebrovascular disease. No evidence for acute or subacute infarct on MRI or evidence of hemodynamically significant stenosis on carotid ultrasound. No evidence for seizure activity or epileptiform abnormalities on this morning's EEG. Patient should continue with aspirin and apixaban. Continue supportive medical care and management of hyperglycemia. No further immediate neurological recommendations. History of Present Illness Reason for Consultation: Transient aphasia Requesting Physician: Brian Roca MD Attending Physician: Sudhakar Jackson History of Present Illness The patient is an 79-year-old female with a chief complaint of generalized weakness, tremor, and word finding difficulty that began about 8-1/2 hours prior to presentation in the emergency department yesterday. Her is at bedside and indicates that her blood sugar was 401 around the time of symptom o nset. Upon further questioning, it was determined that the patient may have been having recurrent difficulty with expressive speech over the past few days complicated by chronic weakness, tremor, and gait/postural instability. Past medical history is notable for a small right convexity subdural hematoma which has subsequently resolved and a chronic mild dementia. Given her recent subacute/acute presentation, however, there was some potential concern for a stroke. Yet, recent imaging including CT of the head and MRI of the brain were unremarkable. Currently, the patient denies any specific neurological complaints. No difficulty with expressive speech, language comprehension, or focal or lateralized weakness. Additional details as below. Allergies Allergy/AdvReac Type Severity Reaction Status Date / Time adhesive Allergy Mild red/blistered Verified 06/26/19 20:57 skin latex Allergy Mild CONTACT Verified 06/26/19 20:57 DERMATITIS carvedilol Allergy Unknown pt unsure, Verified 06/26/19 20:57 listed prior acetaminophen [From Percocet] Allergy Unknown Verified 06/26/19 20:57 gabapentin Allergy Unknown Verified 06/26/19 20:57 ranitidine [From Zantac] Allergy Unknown Verified 06/26/19 20:57 omeprazole AdvReac Intermediate HALLUCINATI Verified 06/26/19 20:57 ONS oxycodone AdvReac Intermediate itching Verified 06/26/19 20:57 phenobarbital AdvReac Intermediate HALLUCINATI Verified 06/26/19 20:57 ONS cephalexin AdvReac Mild DIARRHEA Verified 06/26/19 20:57 fentanyl AdvReac Mild altered Verified 06/26/19 20:57 mental status levofloxacin AdvReac Mild DIARRHEA Verified 06/26/19 20:57 meperidine AdvReac Mild HEADACHES Verified 06/26/19 20:57 metformin AdvReac Mild DIARRHEA Verified 06/26/19 20:57 Sulfa (Sulfonamide AdvReac Mild DIARRHEA Verified 06/26/19 20:57 Antibiotics) fluoxetine AdvReac Unknown Unknown Verified 06/26/19 20:57 Home Medications Home Medications Medication Instructions Recorded Confirmed Type aspirin [Aspirin Low Dose] 81 mg PO HS 07/21/18 06/26/19 History atorvastatin 20 mg PO QAM 07/21/18 06/26/19 History levothyroxine 88 mcg PO QAM 07/21/18 06/26/19 History multivitamin 1 cap PO QAM 07/21/18 06/26/19 History rabeprazole [AcipHex] 20 mg PO QAM 07/21/18 06/26/19 History ascorbic acid (vitamin C) [Vitamin 500 mg PO QAM 02/23/19 06/26/19 History C] cholecalciferol (vitamin D3) 1,000 unit PO QAM 02/23/19 06/26/19 History [Vitamin D3] losartan-hydrochlorothiazide 1 tab PO QAM 03/01/19 06/26/19 History glimepiride 2 mg tablet 2 mg PO BID #180 tab 04/26/19 06/26/19 Rx diltiazem ER 120 mg capsule,24 120 mg PO QAM #30 cap 05/23/19 06/26/19 Rx hr,extended release cyclosporine 0.05 % eye drops in a 1 drp OPB UD ea 06/07/19 06/26/19 History dropperette peg 3350-electrolytes 236 1 ml PO UD #1 ml 06/07/19 06/26/19 History gram-22.74 gram-6.74 gram-5.86 gram solution insulin glargine (U-100) 100 10 units SQ DAILY #15 ml 06/08/19 06/26/19 Rx unit/mL (3 mL) subcutaneous pen apixaban 5 mg tablet 5 mg PO BID 06/17/19 06/26/19 History digoxin 125 mcg tablet 125 mcg PO DAILY 06/17/19 06/26/19 History duloxetine 60 mg capsule,delayed 60 mg PO DAILY #90 cap 06/17/19 06/26/19 History release famotidine 20 mg tablet 20 mg PO BID 06/17/19 06/26/19 History metoprolol tartrate 100 mg tablet 125 mg PO BID tab 06/17/19 06/26/19 History Patient History Medical History Chronic gastritis HLD (hyperlipidemia) LUZMA (obstructive sleep apnea) NO DEVICE HTN (hypertension) (Acute) CKD (chronic kidney disease) stage 3, GFR 30-59 ml/min Diabetes mellitus (Acute) Hypothyroid 2/2 thyroidectomy Paroxysmal atrial fibrillation CURRENTLY AND SCHEDULED FOR CARDIOVERSION Anxiety Benign essential tremor Bowel perforation Depression Diverticular disease HX DIVERTICULITIS PER RECORDS GERD (gastroesophageal reflux disease) Hiatal hernia History of blood transfusion POST-OP ROBE History of palpitations Hx of intestinal obstruction 50 YEARS AGO PER RECORDS IBS (irritable bowel syndrome) Macular degeneration Obesity Osteoarthritis RLS (restless legs syndrome) Transient ischemic attack (TIA) 03/2018 Surgical History Family history of reaction to anesthesia SON-HARD TIME WAKING UP. H/O total thyroidectomy H/O: hysterectomy History of back surgery LUMBAR DISCECTOMY History of blepharoplasty History of bowel resection History of cardiac cath X2 TOTAL (10+ YEARS AGO)= NO STENTS History of herniorrhaphy VENTRAL HERNIA History of inguinal hernia repair X3 (CHILD) History of laryngoscopy REMOVAL OF POLYPS History of repair of hiatal hernia 02/2019 History of repair of rotator cuff RIGHT X3, LEFT X 1 History of tubal ligation Hx of hand surgery LUMP REMOVED FROM RIGHT HAND Previous section X3 S/P appendectomy S/P carotid endarterectomy RIGHT S/P cholecystectomy S/P lumpectomy of breast RIGHT Family History Son Family history of reaction to anesthesia SLOW TO WAKE Brother Family history of diabetes mellitus Sister Family history of diabetes mellitus Mother Family history of diabetes mellitus Uncle Family hx of colon cancer X 3 Social History Preferred Language: Macedonian Communication Ability: Effective Director Of 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 Aid Required: No Beliefs That Will Affect Care: None marital status: Current Living Situation: Spouse Feels Safe at Home: Yes Smoking Status: Never smoker Second Hand Exposure: No ; Hx Alcohol Use: No Hx Substance Use: No Review of Systems Constitutional: no fever and no chills Eyes: no blind spots and no diplopia Ear, Nose, Mouth, Throat: no ear pain and no hearing loss Respiratory: no cough and no dyspnea Cardiovascular: no chest pain and no palpitations Gastrointestinal: no nausea and no vomiting Genitourinary: no dysuria Musculoskeletal: no neck pain and no myalgia Integumentary: no rash and no lesions Neurologic: as per Subjective / HPI Psychiatric: no depression and no anxiety Hematologic / Lymphatic: no easy bleeding Physical Exam Physical Exam: The patient is a well-developed elderly female. She is lying comfortably in bed. She is alert and oriented to person and place only. Delayed recall impaired, 1 out of 3 objects. Remote memory intact. Attention and concentration intact. Patient exhibits a normal spontaneous speech pattern. She is able to name objects and repeat phrases. Patient exhibits an age-appropriate fund of knowledge and normal comprehension of vocabulary. Visual murphy full to confrontation. Visual acuity normal. Pupils equal round reactive to light and accommodation. Eye movements normal. There is no nystagmus. Facial sensation intact. There is no facial droop or weakness. Hearing intact. Palate elevates to midline. Shoulder shrug intact. Tongue protrudes to midline. Sensation intact to all modalities in all 4 limbs. Deep tendon reflexes are intact and symmetrical for the arms and legs bilaterally. Plantar responses equivocal bilaterally. There is no dysdiadochokinesia or dysmetria [id number] or acip-vb-sazy bilaterally. Ophthalmoscopic examination reveals normal-appearing optic disks and posterior segments. No papilledema or hemorrhages. Carotid pulses normal bilaterally, no bruits to auscultation. Gait and station not tested due to safety concerns. Patient exhibits normal muscle strength and tone for all 4 limbs. No atrophy. No abnormal movements observed. Results & Data Vital Signs (Past 12 Hours) Vital Signs Temp Pulse Pulse Resp BP BP BP 06/27/19 07:27 36.7 C 111 H 18 175/78 H 06/27/19 04:45 81 148/75 H 06/27/19 03:52 36.7 C 95 H 20 175/72 H 06/27/19 00:06 36.7 C 83 17 196/79 H 06/26/19 23:38 75 16 140/76 06/26/19 22:53 75 18 129/87 Pulse Ox 06/27/19 07:27 96 06/27/19 04:45 06/27/19 03:52 96 06/27/19 00:06 96 06/26/19 23:38 96 06/26/19 22:53 97 Laboratory Results WBC 10.65, hemoglobin 10.8, hematocrit 32.1, platelet count 237, sodium 141, potassium 4.3, BUN 23, creatinine 1.29, glucose 187, (blood glucose 371 yesterday), hemoglobin A1c 9.6, calcium 8.3, magnesium 1.[address] of the head completed yesterday revealed chronic small vessel ischemic change, no hemorrhage or acute process. I reviewed the images as well as the radiologist interpretation of this test. MRI of the brain completed yesterday was negative for acute or subacute infarct. There is evidence of chronic small vessel change. I reviewed the images as well as the radiologist interpretation of this test. A carotid ultrasound completed yesterday was negative for hemodynamically significant stenosis of either the left or right internal carotid artery. Antegrade flow seen for both vertebral arteries. Electrocardiogram completed yesterday revealed a normal sinus rhythm. An EEG completed today was unremarkable, no epileptiform abnormalities.
--- NOTE | 2019-06-27 10:48 | Procedure Note ---
EEG Procedure Note Date of Service June 27, 2019 Start / End Times Start Time: 9:11 AM End Time: 9:31 AM Referring Physician Harinder Archer MD History Seizure-like episode, strokelike symptoms, history of right convexity subdural hematoma Home Medication List Home Medications Medication Instructions Recorded Confirmed Type aspirin [Aspirin Low Dose] 81 mg PO HS 07/21/18 06/26/19 History atorvastatin 20 mg PO QAM 07/21/18 06/26/19 History levothyroxine 88 mcg PO QAM 07/21/18 06/26/19 History multivitamin 1 cap PO QAM 07/21/18 06/26/19 History rabeprazole [AcipHex] 20 mg PO QAM 07/21/18 06/26/19 History ascorbic acid (vitamin C) [Vitamin 500 mg PO QAM 02/23/19 06/26/19 History C] cholecalciferol (vitamin D3) 1,000 unit PO QAM 02/23/19 06/26/19 History [Vitamin D3] losartan-hydrochlorothiazide 1 tab PO QAM 03/01/19 06/26/19 History glimepiride 2 mg tablet 2 mg PO BID #180 tab 04/26/19 06/26/19 Rx diltiazem ER 120 mg capsule,24 120 mg PO QAM #30 cap 05/23/19 06/26/19 Rx hr,extended release cyclosporine 0.05 % eye drops in a 1 drp OPB UD ea 06/07/19 06/26/19 History dropperette peg 3350-electrolytes 236 1 ml PO UD #1 ml 06/07/19 06/26/19 History gram-22.74 gram-6.74 gram-5.86 gram solution insulin glargine (U-100) 100 10 units SQ DAILY #15 ml 06/08/19 06/26/19 Rx unit/mL (3 mL) subcutaneous pen apixaban 5 mg tablet 5 mg PO BID 06/17/19 06/26/19 History digoxin 125 mcg tablet 125 mcg PO DAILY 06/17/19 06/26/19 History duloxetine 60 mg capsule,delayed 60 mg PO DAILY #90 cap 06/17/19 06/26/19 History release famotidine 20 mg tablet 20 mg PO BID 06/17/19 06/26/19 History metoprolol tartrate 100 mg tablet 125 mg PO BID tab 06/17/19 06/26/19 History Inpatient Medication List Atorvastatin Calcium (Lipitor) 40 mg PO QAM [facility] Stop: 07/27/19 08:59 Last Admin: 06/27/19 10:29 Dose: 40 mg Documented by: [id number] Diltiazem HCl (Tiazac) 120 mg PO QAM [facility] Stop: 07/27/19 08:59 Last Admin: 06/27/19 10:27 Dose: 120 mg Documented by: [id number] Duloxetine HCl (Cymbalta) 60 mg PO DAILY [facility] Stop: 07/27/19 08:59 Last Admin: 06/27/19 10:29 Dose: 60 mg Documented by: [id number] Famotidine (Pepcid) 20 mg PO BID [facility] Stop: 07/27/19 08:59 Last Admin: 06/27/19 10:40 Dose: 20 mg Documented by: [id number] HCTZ/Losartan Potassium (Hyzaar 50/12.5mg) [facility] Stop: 07/27/19 08:59 Last Admin: 06/27/19 10:28 Dose: 1 tab Documented by: [id number] Lactated Ringer's (Lr) 1,000 mls @ 80 mls/hr IV .[id number] [facility] Stop: 07/27/19 00:19 Last Admin: 06/27/19 01:48 Dose: 80 mls/hr Documented by: [id number] Insulin Aspart (Novolog Flexpen) 0 units SC ACHS [facility] Stop: 07/27/19 07:29 Last Admin: 06/27/19 10:07 Dose: 2 units Documented by: [id number] Cosigned by: [id number] Levothyroxine Sodium (Synthroid) 88 mcg PO DAILYBB [facility] Stop: 07/27/19 06:29 Last Admin: 06/27/19 05:34 Dose: Not Given Documented by: [id number] Metoprolol Tartrate (Lopressor) 125 mg PO BID [facility] Stop: 07/27/19 08:59 Last Admin: 06/27/19 10:28 Dose: 125 mg Documented by: [id number] Miscellaneous (Order Awaiting Action) 1 ea N/A QS [facility] Stop: 07/27/19 07:59 Last Admin: 06/27/19 10:30 Dose: Not Given Documented by: [id number] Multivitamins (Multivitamin Tab) [facility] Stop: 07/27/19 08:59 Last Admin: 06/27/19 10:27 Dose: 1 tab Documented by: [id number] Pantoprazole Sodium (Protonix) 40 mg PO QAM [facility] Stop: 07/27/19 08:59 Last Admin: 06/27/19 10:27 Dose: 40 mg Documented by: [id number] Vitamin D (Vitamin D3) 1,000 [facility] Stop: 07/27/19 08:59 Last Admin: 06/27/19 10:27 Dose: 1,000 units Documented by: [id number] Discontinued Medications Haloperidol Lactate (Haldol) Confirm Administered Dose 5 mg .ROUTE .STK-MED ONE Stop: 06/27/19 01:15 Last Admin: 06/27/19 01:27 Dose: 5 mg Documented by: [id number] Insulin Human Regular (Novolin R U-100 Per Unit) 4 units IV NOW STA Stop: 06/26/19 20:23 Last Admin: 06/26/19 20:42 Dose: 4 units Documented by: [id number] Cosigned by: [id number] Lorazepam (Ativan) Confirm Administered Dose 2 mg .ROUTE .STK-MED ONE Stop: 06/27/19 01:14 Last Admin: 06/27/19 01:32 Dose: 1 mg Documented by: [id number] Magnesium Oxide (Mag-Ox) 400 mg PO ONE ONE Stop: 06/27/19 00:21 Last Admin: 06/27/19 01:25 Dose: 400 mg Documented by: [id number] Description This is a 21 electrode EEG with a single channel dedicated to limited EKG. The electrodes were placed in accordance with the International 10-20 system. There is a posterior dominant rhythm of 9 Hz which is symmetrically distributed and attenuates with eye opening. There is a normal anterior to posterior organization. Photic stimulation is unremarkable. There is a symmetric frontal beta rhythm. There is periodic IV artifact. There is no focal or lateralized slowing. No epileptiform abnormalities observed. Interpretation This is a normal-appearing awake EEG. Clinical Correlation This is a normal awake EEG without evidence of focal slowing, or epileptiform abnormalities. Please see today's neurology consult for additional clinical correlation/further details. [facility] EEG Procedure Codes Indication for Procedure (1) Seizure-like activity: Neurology Neurology: EEG include record awake & drowsy
[2019-06-27] MEDS: MAGNESIUM SULFATE / D5W 1 GM/100 ML BAG IV SCH ×2 (10:57→12:20)
[2019-06-27] MEDS ORDERED: PHARMACY GLYCEMIC MGMT CONSULT PRN (11:14)
[2019-06-27] MEDS ORDERED: ASPIRIN 81 MG ECTAB PO SCH (11:15)
[2019-06-27] MEDS ORDERED: APIXABAN 5 MG TABLET PO SCH (11:15)
--- NOTE | 2019-06-27 14:07 | Hospitalist Progress Note ---
Date of Service June 27, 2019 Results & Data Vital Signs (Past 12 Hours) Vital Signs Temp Pulse Resp BP BP Pulse Ox Pulse Ox 06/27/19 13:41 95 06/27/19 11:38 94 06/27/19 11:23 36.7 C 84 18 174/78 H 95 06/27/19 07:27 36.7 C 111 H 18 175/78 H 96 06/27/19 04:45 81 148/75 H 06/27/19 03:52 36.7 C 95 H 20 175/72 H 96 PG Care Time/CCT Total # of Minutes Spent Total Time Spent with Patient: Total time spent is greater than 50% in coordination of care (as documented) at patient's floor/unit and/or counseling patient:
--- NOTE | 2019-06-27 14:59 | Pharmacy Report ---
Glycemic Control Consultation - Date of Service June 27, 2019 - Scope Scope: Glycemic Pharmacist consulted by Twyla Michael on 06/27 for glycemic control and to write orders per [facility] inpatient glycemic control protocol - Objective Weight: 73.8 kg Accuchecks BSG (last 24hrs): 06/26/19 06/26/19 06/26/19 19:22 19:26 20:42 Glucose 376 H* POC Glucose 371 H* 337 H* 06/26/19 06/27/19 22:26 06:59 Glucose 187 H POC Glucose 336 H* Laboratory Data (last 24hrs): 06/26/19 06/27/19 19:26 06:59 Potassium 5.1 4.3 D Carbon Dioxide 25 27 Anion Gap 8.0 8.0 Creatinine 1.71 H 1.29 H D Est Cr Clr Drug Dosing 23.8 31.2 Beta-Hydroxybutyric Acd 2.19 HbA1c: Hemoglobin A1c 9.6 % (4.5-5.6) H 06/27/19 06:59 - Recent Pertinent Medications Outpatient Anti-diabetic Regimen: * Lantus 10 units daily, glimepiride 2 mg bid * A1c = 9.6 % 06/27/19 The patient is currently receiving: * Basal insulin: Lantus- n/a * Correctional Insulin: Novolog Correction per scale ACHS Goal Range: Low 100 mg/dL - High 140 mg/dL Correction Factor: 30 mg/dL/unit * Prandial insulin: Per carb ratio of 1 unit per 15 grams CHO consumed Risk Factors for Insulin Resistance: * Diet: T2DM - Assessment & Plan Assessment & Plan: ASSESSMENT: * 79 year old female admitted with aphasia/symptoms similar to stroke. MRI however negative, neurology notes symptoms on admission may be related to elevated BSGs * BSGs on arrival to hospital 376-336 mg/dL - did receive 4 units IV yesterday evening. Also confirmed patient took her home Lantus dose of 10 units around 1600 yesterday * Pharmacy consulted for glycemic management this morning 06/27 - Fasting BSG 187, patient NPO * Diet ordered for lunch time - did adjust goal range and also tightened CR to stress of 2 dosing. Unfortunately BSG got missed and was not taken prior to patient eating. Contacted nurse of issue, it is unclear why it was never taken. Patient did eat for lunch, had nurse cover carbs only * Fasting elevated this morning, will titrate up Lantus dosing with dinner PLAN FOR INPATIENT GLYCEMIC CONTROL: * Basal insulin * Lantus 12 units for BSG less than 160; 14 units for BSG 160 or greater * Bolus insulin * NovoLog per scale ACHS or Q6hrs while NPO * Goal Range: Low 120 mg/dL - High 160 mg/dL * Correction Factor: 30 mg/dL/unit * Nutritional / Prandial insulin per carb ratio of 1 unit per 10 grams CHO consumed * Please note that the plan above was derived based on current level of insulin resistance and hospital stress. These recommendations are appropriate for inpatient admission only. Plan of care upon discharge will need to be reassessed to avoid potential outpatient hypo/hyperglycemia. Thank you.
[2019-06-27] MEDS ORDERED: STROKE PATIENT DISCHARGE STA (15:23)
[2019-06-27] MEDS ORDERED: DIGOXIN 0.125 MG TAB PO SCH (16:00)
[2019-06-27] MEDS ORDERED: INSULIN GLARGINE SOLOSTAR 100 UNITS/ML 3 ML PEN SC SCH (16:30)
--- NOTE | 2019-06-27 17:30 | Discharge Summary ---
Date of Service June 27, 2019 Admission HPI Per Admitting Provider 79-year-old female presents with her with concerns about episodes of difficulty speaking and with her gait. She says she first noticed the symptoms on Thursday with no history of the same. She would go to speak but have difficulty getting her words out for a few seconds. On some of those occasions she describes as severe sudden generalized headache as well as "charley horses" on her bilateral sides of her neck. She also notes some feeling of gait instability around those times as well. She says during the interval time periods she was asymptomatic. She denies any associated difficulties with v ision, unilateral weakness or numbness, associated falls or injuries, or other concurrent concerns. Of note, patient did suffer a fall around 03Jul that was likely the cause of a small right subdural hematoma. Please see related neurology consults and discharge summary in May. She says that she restarted aspirin a couple days ago and her apixaban yesterday (10Aug) as related to her diagnosis of paroxysmal A. fib back in March 2019. Admission Exam Per Admitting Provider GENERAL: Awake, alert, well-appearing, in no acute distress. She is minimally confused, with some hesitation on the dates and initially said she was in the incorrect city but quickly corrected herself. HENT: Normocephalic, atraumatic. Oropharynx a bit dry but appears to be swallowing well. EYES: Normal conjunctiva. Sclera non-icteric. PERRL, EOMI without photophobia or difficulty. NECK: Inspection normal. Supple and full ROM. No nuchal rigidity. Endarterectomy scar. CARDIAC: +S1S2 RRR, no murmurs. Bilateral carotid bruits. RESPIRATORY: Clear to auscultation. No wheezes or rales. Normal respiratory effort. GI: +BS, soft, non-distended. No tenderness to palpation. No rebound or guarding. EXTREMITIES: No pedal edema or calf tenderness. Moving all extremities naturally and easily. NEURO: CN II through XII intact (IX not checked). Strength 5/5 in all extremities. Some mild numbness along the right lateral calf and lateral 3 toes. Otherwise sensation equal and intact bilaterally. Positive bilateral resting upper extremity tremor. Principal Diagnosis Aphasia, Generalized Deconditioning Discharge Exam General: Resting comfortably HEENT: NC/AT; PERRLA with EOMI; Vance conjunctiva, MMM. No erythema of posterior pharynx Neck: Supple and nontender Cardiac: RRR Lungs: CTA bilaterally Abdomen: Bowel normoactive X 4; Nontender to palpation Extremities: Warm. No edema present Neuro: No focal weakness; bilateral tremor noted on exam. Mild slurred speech. Skin: No rash Discharge Data Allergies Allergy/AdvReac Type Severity Reaction Status Date / Time adhesive Allergy Mild red/blistered Verified 06/29/19 14:25 skin latex Allergy Mild CONTACT Verified 06/29/19 14:25 DERMATITIS carvedilol Allergy Unknown pt unsure, Verified 06/29/19 14:25 listed prior acetaminophen [From Percocet] Allergy Unknown Verified 06/29/19 14:25 gabapentin Allergy Unknown Verified 06/29/19 14:25 ranitidine [From Zantac] Allergy Unknown Verified 06/29/19 14:25 omeprazole AdvReac Intermediate HALLUCINATI Verified 06/29/19 14:25 ONS oxycodone AdvReac Intermediate itching Verified 06/29/19 14:25 phenobarbital AdvReac Intermediate HALLUCINATI Verified 06/29/19 14:25 ONS cephalexin AdvReac Mild DIARRHEA Verified 06/29/19 14:25 fentanyl AdvReac Mild altered Verified 06/29/19 14:25 mental status levofloxacin AdvReac Mild DIARRHEA Verified 06/29/19 14:25 meperidine AdvReac Mild HEADACHES Verified 06/29/19 14:25 metformin AdvReac Mild DIARRHEA Verified 06/29/19 14:25 Sulfa (Sulfonamide AdvReac Mild DIARRHEA Verified 06/29/19 14:25 Antibiotics) fluoxetine AdvReac Unknown Unknown Verified 06/29/19 14:25 Consultations 06/26/19 20:38 ED Decision to Admit Stat 06/27/19 00:20 Consult Case Management - Discharge Planning Routine Consult Neurology Routine Ordered Studies 06/26/19 19:33 CT head/brain wo con Stat 06/26/19 22:26 MR brain wo con Routine CXR 06/27/19 00:20 US carotid doppler BI Routine Hospital Course (1) Aphasia: Stroke work up, including carotid doppler, brain MRI, head CT were negative. Home statin was continued as prescribed. Home aspirin and eliquis were initially held then resumed on 06/27/19. EEG completed on 8/12, was negative. Neuro consulted, did not feel symptoms were related to neurologic event. May have been related to chronic vessel changes and hyperglycemia. PT/OT recommended inpatient rehab & documented that patient was not safe for return to home. We discussed discharge planning in the room this afternoon (Jacob (lining caser), patient and her ) -- she was informed regarding the risk of going home without further rehab, including falls leading to fractures/OR repair or recurrent subdural hematomas. Case management also encouraged the patient to pursue rehab. The patient and her were adamant about discharge to home after being advised of the risks. Home health services were also discussed -- they refused home health services as well. Script was provided at discharge for outpatient PT/OT. (2) Gait instability: See above. (3) Hyperglycemia: BG was elevated during this admission, >300. Hemoglobin A1C was 9.6. extension educator was consulted but did not see patient prior to discharge. SSI coverage ordered along with Lantus 10 units daily. BG remained elevated; will resume home Glimepiride at discharge and increase Lantus to 20 units daily. Encouraged close follow up with PCP in 1-2 weeks; also advised her to check BG ac/hs and record all readings. (4) UTI (urinary tract infection): U/a positive; UC pending. Will discharge with 3 day course of Amoxicillin and follow up on UC. May be contributing to slight confusion. (5) Dementia: Mild-moderate dementia at home. Chronic cerebral ischemia on previous MRIs. Mental status appears close to baseline at discharge. (6) Tremor: Benign essential tremor. (7) Diabetes mellitus: See above. (8) Anemia: At baseline. No transfusions were necessary. (9) HLD (hyperlipidemia): Continued home statin. (10) HTN (hypertension): Continued home medications. (11) CKD (chronic kidney disease) stage 3, GFR 30-59 ml/min: Renally dosed all meds. (12) Paroxysmal atrial fibrillation: Diagnosed in March 2019. S/p cardioversion in April. Restarted her Apixaban and Aspirin on 06/27. (13) Hypothyroid: S/p thyroidectomy. Continued home Synthroid. (14) Chronic gastritis: Continued home meds. (15) Depression: Continued home Cymbalta. (16) Anxiety: See above. (17) LUZMA (obstructive sleep apnea): Encouraged CPAP use as inpt. (18) Subdural hematoma: H/o right subdural in May 2019 following fall. Resumed home ASA/Eliquis in June prior to admission. Can continue meds per neurology. Encouraged patient to pursue inpt rehab but she refused placement. Pt. was discharged to home on 06/27/19. Total Time Total Time Spent Total Time Spent (In Minutes): >30 minutes Total Time Includes: Examination of the Patient, Discharge Planning, Medication Reconciliation, Communication With Other Providers and Other Discharge Plan Discharge Items Patient Disposition: Home - Self-Care Reason For Visit: TRANSIENT EXPRESSIVE APHASIA Discharge Diagnosis: Transient Aphasia Condition: Good Discharge Goals: Decrease discomfort, Improve disease control, Improve function, Increase independence and Prevent disease Activity: As commented below Exercise/Sports: Gradually increase as tolerated Non-emergency contact: Primary Care Provider Call non-emergency contact if: you have any medication questions, your symptoms worsen, your pain is unusual for you and you have a fever Follow-up/Referrals: Jack Holloway MD [Primary Care Provider] - Diet: Carb Consistent or DM2 Addtl Provider Instructions: 1. Aphasia/Gait Abnormality * Neurology work up during this admission has been negative for a CVA/TIA. * Please continue home Aspirin and Eliquis as prescribed. * Please schedule a follow up with PCP to discuss this hospital admission. * Please schedule a follow up with Dr. Archer from neurology for evaluation. 2. Type II Diabetes Mellitus * Please monitor blood glucose levels with meals and at bedtime; bring records to your next PCP appt. * Continue home Glimepiride twice daily as prescribed. * Continue Lantus -- please increase dose to 20 units daily. * Continue a carbohydrate consistent diet, type II. * You will need to schedule a follow up with your primary care provider to discuss blood glucose management. 3. High blood pressure * Blood pressure has been elevated during this admission. * Please discuss altering BP meds as an outpatient -- no adjustments were made during this admission. 4. Obstructive Sleep Apnea * Please discuss wearing a CPAP mask at night with your PCP. 5. Urinary Tract Infection * Please take Amoxicillin 500 mg three times daily to complete a 3 day course. Prescriptions: Continued glimepiride 2 mg tablet 2 mg PO BID Qty: 180 RF: 3 diltiazem HCl 120 mg capsule,extended release 24 hr 120 mg PO QAM Qty: 30 RF: 5 cyclosporine 0.05 % dropperette 1 drp OPB UD RF: 0 peg 3350-electrolytes [id number] -5.86 gram recon soln 1 ml PO UD Qty: 1 RF: 0 duloxetine 60 mg capsule,delayed release(DR/EC) 60 mg PO DAILY Qty: 90 RF: 0 digoxin 125 mcg tablet 125 mcg PO DAILY RF: 0 Eliquis 5 mg tablet 5 mg PO BID RF: 0 famotidine 20 mg tablet 20 mg PO BID RF: 0 rabeprazole [AcipHex] 20 mg Tablet,Delayed Release (Dr/Ec) 20 mg PO QAM RF: 0 atorvastatin 20 mg Tablet 20 mg PO QAM RF: 0 aspirin [Aspirin Low Dose] 81 mg Tablet,Delayed Release (Dr/Ec) 81 mg PO HS RF: 0 multivitamin Capsule 1 cap PO QAM RF: 0 levothyroxine 88 mcg Capsule 88 mcg PO QAM RF: 0 ascorbic acid (vitamin C) [Vitamin C] 500 mg Tablet 500 mg PO QAM RF: 0 cholecalciferol (vitamin D3) [Vitamin D3] 1,000 unit Capsule 1,000 unit PO QAM RF: 0 losartan-hydrochlorothiazide 100-25 mg Tablet 1 tab PO QAM RF: 0 Changed Lantus Solostar U-100 Insulin 100 unit/mL (3 mL) insulin pen 20 units SQ DAILY Qty: 15 RF: 2 No Action metoprolol tartrate 100 mg tablet 125 mg PO BID Qty: 180 RF: 3 Stand-Alone Forms: [facility] Discharge Orders: Discharge Order (Routine); Ordered 06/27/19 Ordered By: Twyla Brooks Admission Data Admit Date/Time: 06/26/19 22:26 Attending Provider: Sudhakar Jackson Admit Provider: Brian Roca Primary Care Provider: Jack Holloway Other Providers: Rik Britton Emile Pierre III Service: Telemetry Medical Other Interventions: Discharge Summary Assessment (RN) Last Done: 06/27/19 18:12 Pending Studies at Discharge: Yes Studies:: Urine Culture is pending. DC Date/Time DO NOT enter until pt leaves facility: 06/27/19 18:40 Supervising Physician Co-Signing Physician Notes Attending Attestation and Discharge Note: Pt seen/examined, chart reviewed, discharge care plan d/w PA Twyla Brooks. I agree w/ the lane components of her documentation. 79yo female with T2DM, PAF, prior h/o SDH - presented with hyperglycemia with glucose of nearly 400. Had stroke-like symptoms and underwent TIA/stroke work-up. MRI brain, EEG, carotid duplex - all normal. Neuro consult completed - felt that presenting symptoms may have been due to metabolic causes including hyperglycemia +/- UTI. Ms Brooks titrated the patient's lantus. Inpatient rehab recommended post-d/c by therapy - patient and refused; they were agreeable to outpatient Pt/Ot however. Discharge exam - gen - nad neck - no JVD heart - RRR, s1 s2 lungs - CTA b/l abd - soft neuro - strength 5/5 x 4 exts ext - pulses 2+ b/l Sudhakar Jackson MD
[2019-06-27] MEDS ORDERED: AMOXICILLIN 500 MG CAP PO SCH (21:00)
[2019-06-28] MEDS ORDERED: INSULIN ASPART 100 UNITS/ML 3 ML PEN SC SCH
== END 2019-06-27 18:40 | disposition home or self-care (01) ==
LOC: ED 19:11 → 2N 19:11 → SUATTDRO 22:26 → 2N 23:38

== ENCOUNTER 2019-07-04 16:27 | Observation (INO) ==
--- NOTE | 2019-07-04 16:43 | CT Scan Report ---
CT head/brain wo con CT DOSE: 537.48 mGy.cm HISTORY: Mental status change Stroke evaluation TECHNIQUE: Multiaxial CT images of the head were performed without the use of intravenous contrast. A dose lowering technique was utilized adhering to the principles of ALARA. Comparison: 06/26/2019 Findings: The paranasal sinuses and mastoid air cells are clear. The calvarium and skull base are int act. The ventricles and sulci are within normal limits. There is no mass, hematoma, midline shift, or acute infarct. 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 These are unchanged. Age-related atrophy and chronic small vessel change is noted. Impression: No acute intracranial abnormality. Chronic and age-related change. The above report was generated using voice recognition software. It may contain grammatical, syntax or spelling errors. Electronically signed by: Nguyễn Garcia M.D. 07/04/2019 4:41 PM
[2019-07-04] MEDS ORDERED: LABETALOL HCL IV 5 MG/ML 20ML IV STA ×2 (16:45→19:26)
[2019-07-04] MEDS ORDERED: SODIUM CHLORIDE 0.9% 1000ML 1,000 ML IV SCH (16:45)
--- NOTE | 2019-07-04 16:52 | XRay Report ---
XR chest 1V portable CLINICAL HISTORY: cva COMPARISON STUDY: No previous studies for comparison. FINDINGS: The bones soft tissues and hemidiaphragms are normal. The cardiomediastinal silhouette is n ormal. The lungs are clear. The pulmonary vasculature is normal. IMPRESSION: Negative chest. The above report was generated using voice recognition software. It may contain grammatical, syntax or spelling errors. Electronically signed by: Nguyễn Garcia M.D. 07/04/2019 4:50 PM
[2019-07-04 16:53] LABS: Basophils # (auto) 0.03 K/uL (0-0.2); Basophils % (auto) 0.2 %; Eosinophils # (auto) 0.24 K/uL (0-0.5); Eosinophils % (auto) 1.7 %; Hematocrit (blood only) 36.4 % (37-47); Hemoglobin 12.2 g/dL (12.0-16.0); Immature Granulocytes # (auto) 0.04 K/uL (0.00-0.02); Immature Granulocytes % (auto) 0.3 %; Lymphocytes # (auto) 2.03 K/uL (1.2-3.4); Lymphocytes % (auto) 14.1 %; Mean Corpuscular Hgb Conc 33.5 g/dL (32-36); Mean Corpuscular Volume 94.5 fL (80-100); Mean Platelet Volume 9.8 fL (7.4-10.4); Monocytes # (auto) 0.86 K/uL (0.11-0.59); Neutrophils # (auto) 11.21 K/uL (1.4-6.5); Neutrophils % (auto) 77.7 %; Platelet Count 290 K/uL (130-400); RDW Coefficient of Variation 13.7 % (11.5-14.5); RDW Standard Deviation 47.1 fL (36.4-46.3); Red Blood Count 3.85 M/uL (4.2-5.4); White Blood Count 14.41 K/uL (4.8-10.8)
[2019-07-04 16:56] LABS: Base Excess VBG 0.8 mEq/L; HCO3 VBG 26 mmol/L; PCO2 VBG 45 mmHg (38-50); PO2 VBG 22 mmHg; pH VBG 7.38 (7.36-7.41)
[2019-07-04 16:57] LABS: Oxygen Saturation VBG < 60.0 %
[2019-07-04 17:02] LABS: Partial Thromboplastin Ratio 0.9; Partial Thromboplastin Time 23.9 Seconds (21.0-31.0); Prothrombin Time 10.5 Seconds (9.0-12.0)
[2019-07-04 17:11] LABS: Alanine Aminotransferase 19 U/L (12-78); Albumin Level 3.6 gm/dl (3.4-5.0); Aspartate Aminotransferase 13 U/L (15-37); BUN Creatinine Ratio 21.4 (10-20); Blood Urea Nitrogen 33 mg/dl (7-18); Calcium 8.3 mg/dl (8.5-10.1); Carbon Dioxide 26 mmol/L (21-32); Chloride 103 mmol/L (98-107); Est GFR (African American) 36.3; Est GFR (Non-African American) 31.3; Glucose 203 mg/dl (70-99); Magnesium 1.8 mg/dl (1.8-2.4); Potassium 4.3 mmol/L (3.5-5.1); Sodium 138 mmol/L (136-145)
[2019-07-04 17:15] LABS: Albumin Globulin Ratio 0.9 (0.9-2); Alkaline Phosphatase 115 U/L (45-117); Bilirubin,Total 0.3 mg/dl (0.2-1); Globulin 4.2 gm/dl (2.5-4.0); Total Protein 7.8 gm/dl (6.4-8.2); Troponin I < 0.015 ng/ml (0-0.045)
[2019-07-04] MEDS ORDERED: OPTIRAY 320 125ml IV PRN (17:27)
--- NOTE | 2019-07-04 17:37 | CT Scan Report ---
CT ANGIOGRAM OF THE BRAIN CLINICAL HISTORY: Strokelike symptoms. COMPARISON STUDY: Unenhanced CT of the brain dated 07/04/2019. MRI of the brain dated 1119. TECHNIQUE: Following the IV administration of 120 cc of Optiray 320, CT angiogram of the brain was pe rformed from the skull base to the vertex. Images are reviewed in the axial, sagittal, and coronal pl anes. 3-D MIPS images are created and assessed. IV contrast was administered without complication. A dose lowering technique was utilized adhering to the principles of ALARA. CT DOSE: 133.07 mGy.cm FINDINGS: Brain parenchyma: There is age-related involutional change noting moderate subcortical and periventri cular microangiopathic disease. There is no hemorrhage, mass effect, or evidence of acute territorial ischemia by CT criteria. There is no evidence of enhancing mass lesion on the angiogram phase images . No extra-axial fluid collection is seen. Woody-white matter differentiation is preserved. Ventricles, sulci, and cisterns: Prominent secondary to involutional change. CT angiogram of the brain: There is atherosclerotic calcification of the cavernous carotid and verteb ral arteries. The internal carotid arteries are widely patent, as are the anterior and middle cerebra l arteries. The vertebrobasilar system and posterior cerebral arteries are widely patent. The vertebr al arteries are codominant. There is no aneurysm, high-grade stenosis, or focal vessel cutoff identif ied throughout the intracranial circulation. Dural sinuses: Clear as visualized. Orbits: The bony orbits are intact. The orbital contents are normal as visualized. Sinuses and mastoids: There is trace mucosal thickening in the left maxillary antrum. The remaining v isualized paranasal sinuses are clear. The mastoid air cells are well pneumatized. Calvarium: Unremarkable. IMPRESSION: 1. There is no hemorrhage, mass effect, or evidence of acute territorial ischemia by CT criteria noti ng angiographic phase technique. 2. Unremarkable CT angiogram of the brain. Electronically signed by: Ridge Valerio M.D. 07/04/2019 5:36 PM
[2019-07-04] MEDS ORDERED: ACETAMINOPHEN 500 MG TAB ONE (18:00)
--- NOTE | 2019-07-04 18:09 | Emergency Department Note ---
Entered by Maribell Schultz acting as a scribe for Tarun Millan DO History of Present Illness General Chief complaint: Stroke/CVA Symptoms Stated complaint: HEAD PAIN Time Seen by Provider: 07/04/19 16:34 Source: patient and family Mode of arrival: wheelchair Limitations: no limitations History of Present Illness Onset (ago): hour(s) 1 Location: head Radiation: non-radiation Pain Consistency: + constant Maximum Pain Intensity: 10 Current Pain Intensity: 10 Relieved By: + none Exacerbated By: + none Associated symptoms: + headaches; no chest pain Treatments prior to arrival: none The patient is an 79 year old female who presents to the ED with complaints of possible stroke symptoms. She is accompanied by her . He states her last known well was 1530 this afternoon. The patient displayed repetitive speech today. She was seen here approximately 1 week ago and had carotid dopplers that came back unremarkable. A brain MRI that was unremarkable and a head CT was also unremarkable. Her states he went out to cut the grass at 1200 today, and when he came back in at 1530, the patient displayed the repetitive speech, repeating "nothing to do". He thinks the last time he saw her acting normally today was around 1100. The patient also complained of a headache, rating her discomfort as a 10/10 in severity. She denies any chest pain. She does take daily Apixaban and reports she has been taking her medications as prescribed. Home Medications Home Medications Medication Instructions Recorded Confirmed Type aspirin [Aspirin Low Dose] 81 mg PO HS 07/21/18 07/04/19 History atorvastatin 20 mg PO QAM 07/21/18 07/04/19 History levothyroxine 88 mcg PO QAM 07/21/18 07/04/19 History multivitamin 1 cap PO QAM 07/21/18 07/04/19 History rabeprazole [AcipHex] 20 mg PO QAM 07/21/18 07/04/19 History ascorbic acid (vitamin C) [Vitamin 500 mg PO QAM 02/23/19 07/04/19 History C] cholecalciferol (vitamin D3) 1,000 unit PO QAM 02/23/19 07/04/19 History [Vitamin D3] losartan-hydrochlorothiazide 1 tab PO QAM 03/01/19 07/04/19 History glimepiride 2 mg tablet 2 mg PO BID #180 tab 06/11/19 08/19/19 Rx diltiazem ER 120 mg capsule,24 120 mg PO QAM #30 cap 05/23/19 07/04/19 Rx hr,extended release apixaban 5 mg tablet 5 mg PO BID 06/17/19 07/04/19 History digoxin 125 mcg tablet 125 mcg PO QAM 06/17/19 07/04/19 History duloxetine 60 mg capsule,delayed 60 mg PO QAM #90 cap 06/17/19 07/04/19 History release famotidine 20 mg tablet 20 mg PO BID 06/17/19 07/04/19 History metoprolol tartrate 100 mg tablet 125 mg PO BID #180 tab 06/28/19 07/04/19 Rx cyclosporine 0.05 % eye drops in a 1 drp OPB BID ea 07/03/19 07/04/19 History dropperette Lanjoseus Solostar U-100 Insulin 20 units SQ PM 07/04/19 07/04/19 History Allergies Allergy/AdvReac Type Severity Reaction Status Date / Time adhesive Allergy Mild red/blistered Verified 07/04/19 17:35 skin latex Allergy Mild CONTACT Verified 07/04/19 17:35 DERMATITIS carvedilol Allergy Unknown pt unsure, Verified 07/04/19 17:35 listed prior acetaminophen [From Percocet] Allergy Unknown Verified 07/04/19 17:35 gabapentin Allergy Unknown Verified 07/04/19 17:35 ranitidine [From Zantac] Allergy Unknown Verified 07/04/19 17:35 omeprazole AdvReac Intermediate HALLUCINATI Verified 07/04/19 17:35 ONS oxycodone AdvReac Intermediate itching Verified 07/04/19 17:35 phenobarbital AdvReac Intermediate HALLUCINATI Verified 07/04/19 17:35 ONS cephalexin AdvReac Mild DIARRHEA Verified 07/04/19 17:35 fentanyl AdvReac Mild altered Verified 07/04/19 17:35 mental status levofloxacin AdvReac Mild DIARRHEA Verified 07/04/19 17:35 meperidine AdvReac Mild HEADACHES Verified 07/04/19 17:35 metformin AdvReac Mild DIARRHEA Verified 07/04/19 17:35 Sulfa (Sulfonamide AdvReac Mild DIARRHEA Verified 07/04/19 17:35 Antibiotics) fluoxetine AdvReac Unknown Unknown Verified 07/04/19 17:35 Past Med/Surg History Family History Son Family history of reaction to anesthesia SLOW TO WAKE Brother Family history of diabetes mellitus Sister Family history of diabetes mellitus Mother Family history of diabetes mellitus Uncle Family hx of colon cancer X 3 Social History Preferred Language: [place] Communication Ability: Effective 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 and A total of 10 systems reviewed and were otherwise negative Physical Exam Vital Signs Vital Signs - 24 hr 07/04/19 16:30 07/04/19 16:41 07/04/19 16:44 Temperature 36.4 C L Temperature Source Oral Sepsis Recent Fever Within 48 Hours No Sepsis New/Unexplained Change in Mental Status No Sepsis Action Taken by Nursing No Action Required Pulse Rate 79 76 Pulse Rate from SpO2 Sensor 76 76 Pulse Rhythm Regular Pulse Strength Normal Respiratory Rate 20 22 26 H Respiratory Effort / Characteristics Non-Labored Spontaneous Respiratory Depth Normal Respiratory Pattern Regular Blood Pressure 188/83 H 202/80 H Blood Pressure Mean 118 120 Blood Pressure Position Sitting Pulse Oximetry 98 97 96 Oxygen Delivery Method Room Air 07/04/19 16:45 07/04/19 16:51 07/04/19 16:56 Temperature Temperature Source Sepsis Recent Fever Within 48 Hours Sepsis New/Unexplained Change in Mental Status Sepsis Action Taken by Nursing Pulse Rate 78 74 75 Pulse Rate from SpO2 Sensor 78 74 75 Pulse Rhythm Pulse Strength Respiratory Rate 34 H 29 H 24 Respiratory Effort / Characteristics Respiratory Depth Respiratory Pattern Blood Pressure 190/75 H 193/76 H Blood Pressure Mean 113 115 Blood Pressure Position Pulse Oximetry 96 97 97 Oxygen Delivery Method 07/04/19 17:00 07/04/19 17:01 07/04/19 17:16 Temperature Temperature Source Sepsis Recent Fever Within 48 Hours Sepsis New/Unexplained Change in Mental Status Sepsis Action Taken by Nursing Pulse Rate 72 73 76 Pulse Rate from SpO2 Sensor 73 73 74 Pulse Rhythm Pulse Strength Respiratory Rate 24 24 26 H Respiratory Effort / Characteristics Respiratory Depth Respiratory Pattern Blood Pressure 172/72 H Blood Pressure Mean 105 Blood Pressure Position Pulse Oximetry 97 98 Oxygen Delivery Method Room Air 07/04/19 17:29 07/04/19 17:30 07/04/19 17:31 Temperature Temperature Source Sepsis Recent Fever Within 48 Hours Sepsis New/Unexplained Change in Mental Status Sepsis Action Taken by Nursing Pulse Rate 85 83 83 Pulse Rate from SpO2 Sensor 84 83 Pulse Rhythm Pulse Strength Respiratory Rate 20 33 H 23 Respiratory Effort / Characteristics Respiratory Depth Respiratory Pattern Blood Pressure 194/82 H 205/70 H Blood Pressure Mean 119 115 Blood Pressure Position Pulse Oximetry 96 98 Oxygen Delivery Method 07/04/19 17:41 07/04/19 17:42 07/04/19 17:46 Temperature Temperature Source Sepsis Recent Fever Within 48 Hours Sepsis New/Unexplained Change in Mental Status Sepsis Action Taken by Nursing Pulse Rate 80 80 79 Pulse Rate from SpO2 Sensor 80 80 80 Pulse Rhythm Pulse Strength Respiratory Rate 23 24 27 H Respiratory Effort / Characteristics Respiratory Depth Respiratory Pattern Blood Pressure 194/82 H 196/80 H Blood Pressure Mean 119 118 Blood Pressure Position Pulse Oximetry 95 95 95 Oxygen Delivery Method 07/04/19 17:54 07/04/19 18:00 07/04/19 18:01 Temperature Temperature Source Sepsis Recent Fever Within 48 Hours Sepsis New/Unexplained Change in Mental Status Sepsis Action Taken by Nursing Pulse Rate 80 80 79 Pulse Rate from SpO2 Sensor 80 81 78 Pulse Rhythm Pulse Strength Respiratory Rate 21 23 26 H Respiratory Effort / Characteristics Respiratory Depth Respiratory Pattern Blood Pressure 192/67 H Blood Pressure Mean 108 Blood Pressure Position Pulse Oximetry 97 95 96 Oxygen Delivery Method 07/04/19 18:11 07/04/19 18:12 07/04/19 18:21 Temperature Temperature Source Sepsis Recent Fever Within 48 Hours Sepsis New/Unexplained Change in Mental Status Sepsis Action Taken by Nursing Pulse Rate 78 79 78 Pulse Rate from SpO2 Sensor 79 80 78 Pulse Rhythm Pulse Strength Respiratory Rate 23 22 22 Respiratory Effort / Characteristics Respiratory Depth Respiratory Pattern Blood Pressure 206/72 H 198/91 H Blood Pressure Mean 116 126 Blood Pressure Position Pulse Oximetry 97 94 96 Oxygen Delivery Method 07/04/19 18:28 07/04/19 18:30 07/04/19 18:35 Temperature Temperature Source Sepsis Recent Fever Within 48 Hours Sepsis New/Unexplained Change in Mental Status Sepsis Action Taken by Nursing Pulse Rate 80 85 80 Pulse Rate from SpO2 Sensor Pulse Rhythm Pulse Strength Respiratory Rate 17 22 33 H Respiratory Effort / Characteristics Respiratory Depth Respiratory Pattern Blood Pressure 191/106 H 133/81 Blood Pressure Mean 134 98 Blood Pressure Position Pulse Oximetry Oxygen Delivery Method 07/04/19 18:41 07/04/19 18:45 07/04/19 18:51 Temperature Temperature Source Sepsis Recent Fever Within 48 Hours Sepsis New/Unexplained Change in Mental Status Sepsis Action Taken by Nursing Pulse Rate 76 76 75 Pulse Rate from SpO2 Sensor Pulse Rhythm Pulse Strength Respiratory Rate 27 H 23 23 Respiratory Effort / Characteristics Respiratory Depth Respiratory Pattern Blood Pressure 202/101 H 203/76 H 192/75 H Blood Pressure Mean 134 118 114 Blood Pressure Position Pulse Oximetry Oxygen Delivery Method GENERAL: Patient is awake, alert, and pleasant appearing. Patient is resting comfortably and showing no signs of anxiety EYES: The conjunctivae are clear. The pupils are round and reactive. EARS, NOSE, MOUTH AND THROAT: The nose is without any evidence of any deformity. Mucous membranes are moist.Tongue is midline NECK: The neck is nontender and supple. RESPIRATORY: Normal respiratory effort is noted. There is no evidence of wheezing rhonchi or rales to auscultation. CARDIOVASCULAR: Regular rate and rhythm noted. There no murmurs rubs or gallops normal S1 normal S2 GASTROINTESTINAL: The abdomen is soft. Bowel sounds are present in all quadrants. Abdomen is nontender. MUSCULOSKELETAL/EXTREMITIES: There is no evidence of gross deformity. Full range of motion is noted in the hips and shoulders. SKIN: There is no obvious evidence of any rash. There are no petechiae, pallor or cyanosis noted. NEUROLOGIC: Patient is awake, oriented to person, place but not time, follows commands normally, no facial droop noted, patient is able to hold each leg off the bed for 5 seconds. Course 1639: The patient was evaluated in room A1 and a complete history and physical were performed. 1712: Nursing states the patient is not answering questions appropriately. He evaluates her NIH stroke scale to be a 2. 1751: I discussed the patients case with Dr. Archer, [facility]. He will follow up with the patient in the office. 1807: I discussed the patients case with Dr. Dylan Montanez, [facility] Hospitalist. The patient will be further evaluated. Consultations Consultation #1: I discussed the patients case with [facility]. He will follow up with the patient in the office. Time: 17:51 Consultation #2: I discussed the patients case with Dr. Dylan Montanez, [facility]. The patient will be further evaluated. Time: 18:07 Administered Medications Apixaban (Eliquis) 5 mg PO BID DEVORAH Stop: 08/03/19 21:04 Last Admin: 07/04/19 21:38 Dose: 5 mg Documented by: [id number] Aspirin (Ecotrin Ectab) 81 mg PO HS DEVORAH Stop: 08/03/19 21:04 Last Admin: 07/04/19 21:38 Dose: 81 mg Documented by: [id number] Famotidine (Pepcid) 20 mg PO BID DEVORAH Stop: 08/03/19 21:04 Last Admin: 07/04/19 21:38 Dose: 20 mg Documented by: [id number] Insulin Aspart (Novolog Flexpen) 0 units SC ACHS DEVORAH Stop: 08/03/19 21:04 Last Admin: 07/04/19 21:38 Dose: 3 units Documented by: [id number] Cosigned by: [id number] Insulin Glargine (Lantus Solostar Pen) 15 units SQ PM DEVORAH Stop: 08/03/19 21:04 Last Admin: 07/04/19 21:37 Dose: 15 units Documented by: [id number] Cosigned by: [id number] Metoprolol Tartrate (Lopressor) 125 mg PO BID DEVORAH Stop: 08/03/19 21:04 Last Admin: 07/04/19 21:38 Dose: 125 mg Documented by: [id number] Discontinued Medications Acetaminophen (Tylenol) Confirm Administered Dose 1,000 mg .ROUTE .STK-MED ONE Stop: 07/04/19 18:01 Last Admin: 07/04/19 18:09 Dose: 1,000 mg Documented by: [id number] Sodium Chloride (Nss 1000ml) 1,000 mls @ 50 mls/hr IV .Q20H DEVORAH Stop: 08/03/19 16:44 Last Infusion: 07/04/19 20:46 Dose: 0 mls/hr Documented by: [id number] Admin: 07/04/19 17:00 Dose: 50 mls/hr Documented by: [id number] Ioversol (Optiray 320 125ml) 120 ml IV ONCE PRN PRN Reason: Interaction Checking Stop: 07/08/19 17:26 Last Admin: 07/04/19 17:27 Dose: 120 ml Documented by: [id number] Labetalol HCl (Normodyne) 10 mg IV NOW STA Stop: 07/04/19 16:46 Last Admin: 07/04/19 17:55 Dose: 10 mg Documented by: [id number] Cosigned by: [id number] Labetalol HCl (Normodyne) 10 mg IV NOW STA Stop: 07/04/19 19:27 Last Admin: 07/04/19 19:50 Dose: 10 mg Documented by: [id number] Cosigned by: [id number] Medical Decision Making Differential Diagnosis Differential Diagnosis includes but is not limited to dehydration, stroke, anemia, hypoglycemia, hyponatremia, hypernatremia, urinary tract infection, pneumonia, bronchitis, sepsis, gastroenteritis, additional abdominal pathology, metabolic abnormalities and infections. Medical Records Attestation: I reviewed the patient's medical records. Home Medications Current Medication List: was personally reviewed by me Laboratory Data Attestation: I reviewed the patient's lab results. Result diagrams: 07/04/19 16:43 07/04/19 16:43 Lab Results 07/04/19 07/04/19 07/04/19 Range/Units 16:41 16:43 16:43 WBC 14.41 H (4.8-10.8) K/uL RBC 3.85 L (4.2-5.4) M/uL Hgb 12.2 (12.0-16.0) g/dL Hct 36.4 L (37-47) % MCV 94.5 (80-100) fL MCH 31.7 (25-34) pg MCHC 33.5 (32-36) g/dL RDW Std Deviation 47.1 H (36.4-46.3) fL RDW Coeff of Michael 13.7 (11.5-14.5) % Plt Count 290 (130-400) K/uL MPV 9.8 (7.4-10.4) fL Immature Gran % (Auto) 0.3 % Neut % (Auto) 77.7 % Lymph % (Auto) 14.1 % Whiteside % (Auto) 6.0 % Eos % (Auto) 1.7 % Baso % (Auto) 0.2 % Immature Gran # (Auto) 0.04 H (0.00-0.02) K/uL Neut # (Auto) 11.21 H (1.4-6.5) K/uL Lymph # (Auto) 2.03 (1.2-3.4) K/uL Whiteside # (Auto) 0.86 H (0.11-0.59) K/uL Eos # (Auto) 0.24 (0-0.5) K/uL Baso # (Auto) 0.03 (0-0.2) K/uL PT 10.5 (9.0-12.0) Seconds INR 1.0 (0.9-1.1) APTT 23.9 (21.0-31.0) Seconds PTT Ratio 0.9 VBG pH (7.36-7.41) VBG pCO2 (38-50) mmHg VBG pO2 mmHg VBG HCO3 mmol/L VBG O2 Saturation % VBG Base Excess mEq/L Barometric Pressure mm/Hg Sodium (136-145) mmol/L Potassium (3.5-5.1) mmol/L Chloride (98-107) mmol/L Carbon Dioxide (21-32) mmol/L Anion Gap (3-11) BUN (7-18) mg/dl Creatinine (0.6-1.2) mg/dl Est Cr Clr Drug Dosing Est GFR ( Amer) Est GFR (Non-Af Amer) BUN/Creatinine Ratio (10-20) Glucose (70-99) mg/dl POC Glucose 192 H (70-99) Calcium (8.5-10.1) mg/dl Magnesium (1.8-2.4) mg/dl Total Bilirubin (0.2-1) mg/dl AST (15-37) U/L ALT (12-78) U/L Alkaline Phosphatase (45-117) U/L Troponin I (0-0.045) ng/ml Total Protein (6.4-8.2) gm/dl Albumin (3.4-5.0) gm/dl Globulin (2.5-4.0) gm/dl Albumin/Globulin Ratio (0.9-2) Urine Color Urine Appearance (Clear) Urine pH (4.5-7.5) Ur Specific Yoder (1.000-1.030) Urine Protein (Negative) Urine Glucose (UA) (Negative) Urine Ketones (Negative) Urine Blood (Negative) Urine Nitrite (Negative) Urine Bilirubin (Negative) Urine Urobilinogen (Negative) Ur Leukocyte Esterase (Negative) Urine WBC (Auto) (0-5) /hpf Urine RBC (Auto) (0-4) /hpf U Hyaline Cast (Auto) (0-5) /lpf U Epithel Cells (Auto) (0-5) /lpf Urine Bacteria (Auto) (Negative) Digoxin (0.8-2.0) ng/ml 07/04/19 07/04/19 07/04/19 Range/Units 16:43 16:43 16:43 WBC (4.8-10.8) K/uL RBC (4.2-5.4) M/uL Hgb (12.0-16.0) g/dL Hct (37-47) % MCV (80-100) fL MCH (25-34) pg MCHC (32-36) g/dL RDW Std Deviation (36.4-46.3) fL RDW Coeff of Michael (11.5-14.5) % Plt Count (130-400) K/uL MPV (7.4-10.4) fL Immature Gran % (Auto) % Neut % (Auto) % Lymph % (Auto) % Whiteside % (Auto) % Eos % (Auto) % Baso % (Auto) % Immature Gran # (Auto) (0.00-0.02) K/uL Neut # (Auto) (1.4-6.5) K/uL Lymph # (Auto) (1.2-3.4) K/uL Whiteside # (Auto) (0.11-0.59) K/uL Eos # (Auto) (0-0.5) K/uL Baso # (Auto) (0-0.2) K/uL PT (9.0-12.0) Seconds INR (0.9-1.1) APTT (21.0-31.0) Seconds PTT Ratio VBG pH 7.38 (7.36-7.41) VBG pCO2 45 (38-50) mmHg VBG pO2 22 mmHg VBG HCO3 26 mmol/L VBG O2 Saturation < 60.0 % VBG Base Excess 0.8 mEq/L Barometric Pressure 732.2 mm/Hg Sodium 138 (136-145) mmol/L Potassium 4.3 (3.5-5.1) mmol/L Chloride 103 (98-107) mmol/L Carbon Dioxide 26 (21-32) mmol/L Anion Gap 9.0 (3-11) BUN 33 H (7-18) mg/dl Creatinine 1.55 H (0.6-1.2) mg/dl Est Cr Clr Drug Dosing Not Reportable Est GFR ( Amer) 36.3 Est GFR (Non-Af Amer) 31.3 BUN/Creatinine Ratio 21.4 H (10-20) Glucose 203 H (70-99) mg/dl POC Glucose (70-99) Calcium 8.3 L (8.5-10.1) mg/dl Magnesium 1.8 (1.8-2.4) mg/dl Total Bilirubin 0.3 (0.2-1) mg/dl AST 13 L (15-37) U/L ALT 19 (12-78) U/L Alkaline Phosphatase 115 (45-117) U/L Troponin I < 0.015 (0-0.045) ng/ml Total Protein 7.8 (6.4-8.2) gm/dl Albumin 3.6 (3.4-5.0) gm/dl Globulin 4.2 H (2.5-4.0) gm/dl Albumin/Globulin Ratio 0.9 (0.9-2) Urine Color Urine Appearance (Clear) Urine pH (4.5-7.5) Ur Specific Yoder (1.000-1.030) Urine Protein (Negative) Urine Glucose (UA) (Negative) Urine Ketones (Negative) Urine Blood (Negative) Urine Nitrite (Negative) Urine Bilirubin (Negative) Urine Urobilinogen (Negative) Ur Leukocyte Esterase (Negative) Urine WBC (Auto) (0-5) /hpf Urine RBC (Auto) (0-4) /hpf U Hyaline Cast (Auto) (0-5) /lpf U Epithel Cells (Auto) (0-5) /lpf Urine Bacteria (Auto) (Negative) Digoxin 1.7 (0.8-2.0) ng/ml 07/04/19 Range/Units 18:37 WBC (4.8-10.8) K/uL RBC (4.2-5.4) M/uL Hgb (12.0-16.0) g/dL Hct (37-47) % MCV (80-100) fL MCH (25-34) pg MCHC (32-36) g/dL RDW Std Deviation (36.4-46.3) fL RDW Coeff of Michael (11.5-14.5) % Plt Count (130-400) K/uL MPV (7.4-10.4) fL Immature Gran % (Auto) % Neut % (Auto) % Lymph % (Auto) % Whiteside % (Auto) % Eos % (Auto) % Baso % (Auto) % Immature Gran # (Auto) (0.00-0.02) K/uL Neut # (Auto) (1.4-6.5) K/uL Lymph # (Auto) (1.2-3.4) K/uL Whiteside # (Auto) (0.11-0.59) K/uL Eos # (Auto) (0-0.5) K/uL Baso # (Auto) (0-0.2) K/uL PT (9.0-12.0) Seconds INR (0.9-1.1) APTT (21.0-31.0) Seconds PTT Ratio VBG pH (7.36-7.41) VBG pCO2 (38-50) mmHg VBG pO2 mmHg VBG HCO3 mmol/L VBG O2 Saturation % VBG Base Excess mEq/L Barometric Pressure mm/Hg Sodium (136-145) mmol/L Potassium (3.5-5.1) mmol/L Chloride (98-107) mmol/L Carbon Dioxide (21-32) mmol/L Anion Gap (3-11) BUN (7-18) mg/dl Creatinine (0.6-1.2) mg/dl Est Cr Clr Drug Dosing Est GFR ( Amer) Est GFR (Non-Af Amer) BUN/Creatinine Ratio (10-20) Glucose (70-99) mg/dl POC Glucose (70-99) Calcium (8.5-10.1) mg/dl Magnesium (1.8-2.4) mg/dl Total Bilirubin (0.2-1) mg/dl AST (15-37) U/L ALT (12-78) U/L Alkaline Phosphatase (45-117) U/L Troponin I (0-0.045) ng/ml Total Protein (6.4-8.2) gm/dl Albumin (3.4-5.0) gm/dl Globulin (2.5-4.0) gm/dl Albumin/Globulin Ratio (0.9-2) Urine Color Yellow Urine Appearance Cloudy A (Clear) Urine pH 5.5 (4.5-7.5) Ur Specific Yoder 1.028 (1.000-1.030) Urine Protein 2+ H (Negative) Urine Glucose (UA) Negative (Negative) Urine Ketones Negative (Negative) Urine Blood Trace H (Negative) Urine Nitrite Negative (Negative) Urine Bilirubin Negative (Negative) Urine Urobilinogen Negative (Negative) Ur Leukocyte Esterase Negative (Negative) Urine WBC (Auto) 1-5 (0-5) /hpf Urine RBC (Auto) >30 H (0-4) /hpf U Hyaline Cast (Auto) 1-5 (0-5) /lpf U Epithel Cells (Auto) 20-30 H (0-5) /lpf Urine Bacteria (Auto) Negative (Negative) Digoxin (0.8-2.0) ng/ml Imaging Data Radiologist's Impression: Radiology results as stated below per my review and the radiologist's interpretation: CT ANGIOGRAM OF THE BRAIN CLINICAL HISTORY: Strokelike symptoms. COMPARISON STUDY: Unenhanced CT of the brain dated 07/04/2019. MRI of the brain dated 111. TECHNIQUE: Following the IV administration of 120 cc of Optiray 320, CT angiogram of the brain was performed from the skull base to the vertex. Images are reviewed in the axial, sagittal, and coronal planes. 3-D MIPS images are created and assessed. IV contrast was administered without complication. A dose lowering technique was utilized adhering to the principles of ALARA. CT DOSE: 133.07 mGy.cm FINDINGS: Brain parenchyma: There is age-related involutional change noting moderate subcortical and periventricular microangiopathic disease. There is no hemorrhage, mass effect, or evidence of acute territorial ischemia by CT criteria. There is no evidence of enhancing mass lesion on the angiogram phase images. No extra-axial fluid collection is seen. Woody-white matter differentiation is preserved. Ventricles, sulci, and cisterns: Prominent secondary to involutional change. CT angiogram of the brain: There is atherosclerotic calcification of the cavernous carotid and vertebral arteries. The internal carotid arteries are widely patent, as are the anterior and middle cerebral arteries. The vertebrobasilar system and posterior cerebral arteries are widely patent. The vertebral arteries are codominant. There is no aneurysm, high-grade stenosis, or focal vessel cutoff identified throughout the intracranial circulation. Dural sinuses: Clear as visualized. Orbits: The bony orbits are intact. The orbital contents are normal as visualized. Sinuses and mastoids: There is trace mucosal thickening in the left maxillary antrum. The remaining visualized paranasal sinuses are clear. The mastoid air cells are well pneumatized. Calvarium: Unremarkable. IMPRESSION: 1. There is no hemorrhage, mass effect, or evidence of acute territorial ischemia by CT criteria noting angiographic phase technique. 2. Unremarkable CT angiogram of the brain. Electronically signed by: Ridge Valerio M.D. 07/04/2019 5:[address] head/brain wo con CT DOSE: 537.48 mGy.cm HISTORY: Mental status change Stroke evaluation TECHNIQUE: Multiaxial CT images of the head were performed without the use of intravenous contrast. A dose lowering technique was utilized adhering to the principles of ALARA. Comparison: 06/26/2019 Findings: The paranasal sinuses and mastoid air cells are clear. The calvarium and skull base are intact. The ventricles and sulci are within normal limits. There is no mass, hematoma, midline shift, or acute infarct. 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 These are unchanged. Age-related atrophy and chronic small vessel change is noted. Impression: No acute intracranial abnormality. Chronic and age-related change. The above report was generated using voice recognition software. It may contain grammatical, syntax or spelling errors. Electronically signed by: Nguyễn Garcia M.D. 07/04/2019 4:41 PM XR chest 1V portable CLINICAL HISTORY: cva COMPARISON STUDY: No previous studies for comparison. FINDINGS: The bones soft tissues and hemidiaphragms are normal. The cardiomediastinal silhouette is normal. The lungs are clear. The pulmonary vasculature is normal. IMPRESSION: Negative chest. The above report was generated using voice recognition software. It may contain grammatical, syntax or spelling errors. Electronically signed by: Nguyễn Garcia M.D. 07/04/2019 4:50 PM ECG Data Attestation: I personally reviewed and interpreted this ECG as follows: Indication: weakness Rate (beats per minute): 78 Rhythm: normal sinus Findings: + LBBB; no PVC Comparison ECG Date: from (06/26/2019) Change: no significant change MDM Narrative The patient is an 79-year-old female who presented to the emergency department for confusion. The patient has a history of atrial fibrillation as well as anticoagulation use. She was made a stroke alert from triage. I inserted orders for the acute stroke. The patient's last known well time appears to be 11 AM. She is not a candidate for TPA given the onset of symptoms as well as the patient's use of anticoagulation. I discussed the patient's laboratory and radiographic studies with her and her . I also discussed her case with the neurologist who evaluated her recently on her admission for similar complaints. At this time she appears to continue to have neurologic deficits and it is possible that she may require further work-up such as MRI of the brain or possibly EEG. For this reason I discussed her case with the on-call [facility] hospitalist. They have agreed to evaluate the patient in the emergency department for further management disposition. The patient was reevaluated multiple times. Her condition did not change significantly. She was treated with IV labetalol as well as Tylenol. Impression & Plan Confusion, Hypertension, Headache Discharge Plan Visit Data *Final* Discharge Date/Time: 07/04/19 20:12 Chief Complaint: Stroke/CVA Symptoms Stated Complaint: HEAD PAIN ED Provider: Tarun Millan Discharge Problem: Confusion, Hypertension, Headache Patient Disposition: Admitted As Inpatient Discharge Instructions Interventions: ED Discharge Assessment Last Done: 07/04/19 20:12 The scribe's documentation has been prepared under my direction and personally reviewed by me in its entirety. I confirm that the note above accurately reflects all work, treatment, procedures, and medical decision making performed by me.
[2019-07-04 18:48] LABS: Appearance Urine Cloudy (Clear); Bacteria Urine Automated Negative (Negative); Bilirubin Urine Negative (Negative); Blood Urine Trace (Negative); Color Urine Yellow; Epithelial Cell Urine Auto 20-30 /lpf (0-5); Glucose Urine UA Negative (Negative); Ketones Urine Negative (Negative); Leukocyte Esterase Urine Negative (Negative); Nitrite Urine Negative (Negative); Protein Urine 2+ (Negative); RBC Urine Automated >30 /hpf (0-4); Specific Gravity Urine 1.028 (1.000-1.030); Urobilinogen Urine Negative (Negative); pH Urine 5.5 (4.5-7.5)
--- NOTE | 2019-07-04 19:03 | History & Physical Report ---
Date of Service July 04, 2019 Assessment & Plan (1) Confusion: Patient presents with another episode of aphasia and confusion. This is at least the 4th episode in the last 2 months resulting in admission. The patient and have been told about possible dementia by myself and other pr oviders, but seem to not recall this. She has undergone 2 brain MRIs in this time. Seen by neurology multiple times with thought this is dementia worsened by hypo/hyperglycemia or blood pressure. Prior episodes have been attributed to UTIs; however, her UA this admission is clear. - Monitor BP - Will only treat with very highs as she dropped from 200/90 to 135/70 with standing up and ambulating. She was asymptomatic from this change however - Monitor blood sugars - Defer neurology consult and MRI given repeated assessment - Could discuss with Dr. Archer in the AM if there is concern (2) HTN (hypertension): Is on diltiazem, losartan-HCTZ, and beta-debra at home. BP in the ED has been 200/100 consistently. - Continue home meds - Hydralazine PRN - Monitor for orthostatics (3) Diabetes mellitus: A1c was 9.6% this month. - Continue insulin regimen - Sliding scale insulin - Diabetic diet (4) Paroxysmal atrial fibrillation: EKG on admission showed sinus. - Continue apixaban, digoxin, & calcium channel debra (5) CKD (chronic kidney disease) stage 3, GFR 30-59 ml/min: Baseline Cr ~1.3-1.5. - At baseline - Avoid nephrotoxins (6) DVT prophylaxis: On apixaban History of Present Illness Primary Care Provider: Jack Holloway MD 79yo F w/ hx of HTN, DM, and afib who presents with episode of confusion. Per her , she was in her normal state of health throughout the day yesterday. He reports that he got up this morning and started working outside without speaking to her. He interacted with her midmorning and felt that she was unable to speak appropriately. He notes that she was perseverating on a single phrase. He does not recall the exact phrase, but reports of something like "not possible." No matter what he said, she would respond with not possible. The patient herself does realize that she is having some confusion and trouble speaking. She also notes a left-sided temporal headache that she reports is "not bad" at present, but was worse earlier on during the day. Otherwise put the patient and her report that she has been in her usual state of health prior to today. She denies any recent falls, new or different pain apart from her headache. Allergies Allergy/AdvReac Type Severity Reaction Status Date / Time adhesive Allergy Mild red/blistered Verified 07/04/19 17:35 skin latex Allergy Mild CONTACT Verified 07/04/19 17:35 DERMATITIS carvedilol Allergy Unknown pt unsure, Verified 07/04/19 17:35 listed prior acetaminophen [From Percocet] Allergy Unknown Verified 07/04/19 17:35 gabapentin Allergy Unknown Verified 07/04/19 17:35 ranitidine [From Zantac] Allergy Unknown Verified 07/04/19 17:35 omeprazole AdvReac Intermediate HALLUCINATI Verified 07/04/19 17:35 ONS oxycodone AdvReac Intermediate itching Verified 07/04/19 17:35 phenobarbital AdvReac Intermediate HALLUCINATI Verified 07/04/19 17:35 ONS cephalexin AdvReac Mild DIARRHEA Verified 07/04/19 17:35 fentanyl AdvReac Mild altered Verified 07/04/19 17:35 mental status levofloxacin AdvReac Mild DIARRHEA Verified 07/04/19 17:35 meperidine AdvReac Mild HEADACHES Verified 07/04/19 17:35 metformin AdvReac Mild DIARRHEA Verified 07/04/19 17:35 Sulfa (Sulfonamide AdvReac Mild DIARRHEA Verified 07/04/19 17:35 Antibiotics) fluoxetine AdvReac Unknown Unknown Verified 07/04/19 17:35 Home Medications Home Medications Medication Instructions Recorded Confirmed Type aspirin [Aspirin Low Dose] 81 mg PO HS 07/21/18 07/04/19 History atorvastatin 20 mg PO QAM 07/21/18 07/04/19 History levothyroxine 88 mcg PO QAM 07/21/18 07/04/19 History multivitamin 1 cap PO QAM 07/21/18 07/04/19 History rabeprazole [AcipHex] 20 mg PO QAM 07/21/18 07/04/19 History ascorbic acid (vitamin C) [Vitamin 500 mg PO QAM 02/23/19 07/04/19 History C] cholecalciferol (vitamin D3) 1,000 unit PO QAM 02/23/19 07/04/19 History [Vitamin D3] losartan-hydrochlorothiazide 1 tab PO QAM 03/01/19 07/04/19 History glimepiride 2 mg tablet 2 mg PO BID #180 tab 04/26/19 07/04/19 Rx diltiazem ER 120 mg capsule,24 120 mg PO QAM #30 cap 05/23/19 07/04/19 Rx hr,extended release apixaban 5 mg tablet 5 mg PO BID 06/17/19 07/04/19 History digoxin 125 mcg tablet 125 mcg PO QAM 06/17/19 07/04/19 History duloxetine 60 mg capsule,delayed 60 mg PO QAM #90 cap 06/17/19 07/04/19 History release famotidine 20 mg tablet 20 mg PO BID 06/17/19 07/04/19 History metoprolol tartrate 100 mg tablet 125 mg PO BID #180 tab 06/28/19 07/04/19 Rx cyclosporine 0.05 % eye drops in a 1 drp OPB BID ea 07/03/19 07/04/19 History dropperette Lantus Solostar U-100 Insulin 20 units SQ PM 07/04/19 07/04/19 History Past Med/Surg History Medical History Chronic gastritis HLD (hyperlipidemia) LUZMA (obstructive sleep apnea) NO DEVICE HTN (hypertension) (Acute) CKD (chronic kidney disease) stage 3, GFR 30-59 ml/min Diabetes mellitus (Acute) Hypothyroid 2/2 thyroidectomy Paroxysmal atrial fibrillation CURRENTLY AND SCHEDULED FOR CARDIOVERSION Anxiety Benign essential tremor Bowel perforation Depression Diverticular disease HX DIVERTICULITIS PER RECORDS GERD (gastroesophageal reflux disease) Hiatal hernia History of blood transfusion POST-OP ROBE History of palpitations Hx of intestinal obstruction 50 YEARS AGO PER RECORDS IBS (irritable bowel syndrome) Macular degeneration Obesity Osteoarthritis RLS (restless legs syndrome) Transient ischemic attack (TIA) 03/2018 Surgical History Family history of reaction to anesthesia SON-HARD TIME WAKING UP. H/O total thyroidectomy H/O: hysterectomy History of back surgery LUMBAR DISCECTOMY History of blepharoplasty History of bowel resection History of cardiac cath X2 TOTAL (10+ YEARS AGO)= NO STENTS History of herniorrhaphy VENTRAL HERNIA History of inguinal hernia repair X3 (CHILD) History of laryngoscopy REMOVAL OF POLYPS History of repair of hiatal hernia 02/2019 History of repair of rotator cuff RIGHT X3, LEFT X 1 History of tubal ligation Hx of hand surgery LUMP REMOVED FROM RIGHT HAND Previous section X3 S/P appendectomy S/P carotid endarterectomy RIGHT S/P cholecystectomy S/P lumpectomy of breast RIGHT Family History Son Family history of reaction to anesthesia SLOW TO WAKE Brother Family history of diabetes mellitus Sister Family history of diabetes mellitus Mother Family history of diabetes mellitus Uncle Family hx of colon cancer X 3 Social History Preferred Language: Greek Communication Ability: Effective 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 Beliefs That Will Affect Care: None marital status: Current Living Situation: Spouse Feels Safe at Home: Yes Smoking Status: Never smoker Second Hand Exposure: No ; Hx Alcohol Use: No Hx Substance Use: No Review of Systems Review of Systems: All systems reviewed & are unremarkable except as noted in HPI & below Physical Exam Constitutional: WD/WN, vitals as above + acute distress, + frail appearing and cooperative Eyes: EOM intact bilaterally; no conjunctival abnormality ENMT: external ear and nose normal, oropharynx normal Neck: trachea midline, no thyromegaly normal visual inspection Respiratory: normal respiratory effort, lungs clear to auscultation no respiratory distress Cardiovascular: RRR, no murmur, no edema Gastrointestinal (Abdomen): Inspection/Auscultation: abdomen normal to inspection; abdomen not distended Musculoskeletal: no cyanosis or clubbing, extremities motor strength 5/5 Skin: no rashes, warm and dry Neurologic: moves all extremities, awake and + confused; no focal motor deficits Speech / Cognition: + abnormal speech Motor/Sensory: no tremor Cranial Nerves: PERRL, EOM intact bilaterally, normal facial strength, tongue midline, able to rotate head bilaterally, able to elevate shoulders bilaterally and symmetric palate elevation Psychiatric: Orientation: alert, oriented to person and cooperative Results & Data Vital Signs (Past 12 Hours) Vital Signs Temp Pulse Resp BP Pulse Ox 07/04/19 18:35 80 33 H 133/81 07/04/19 18:30 85 22 07/04/19 18:28 80 17 191/106 H 07/04/19 18:21 78 22 198/91 H 96 07/04/19 18:12 79 22 94 07/04/19 18:11 78 23 206/72 H 97 07/04/19 18:01 79 26 H 192/67 H 96 07/04/19 18:00 80 23 95 07/04/19 17:54 80 21 97 07/04/19 17:46 79 27 H 196/80 H 95 07/04/19 17:42 80 24 95 07/04/19 17:41 80 23 194/82 H 95 07/04/19 17:31 83 23 205/70 H 98 07/04/19 17:30 83 33 H 96 07/04/19 17:29 85 20 194/82 H 07/04/19 17:16 76 26 H 07/04/19 17:01 73 24 172/72 H 98 07/04/19 17:00 72 24 97 07/04/19 16:56 75 24 193/76 H 97 07/04/19 16:51 74 29 H 97 07/04/19 16:45 78 34 H 190/75 H 96 07/04/19 16:44 76 26 H 96 07/04/19 16:41 22 202/80 H 97 07/04/19 16:30 36.4 C L 79 20 188/83 H 98 PG Care Time/CCT Total # of Minutes Spent Total Time Spent with Patient: Total time spent is greater than 50% in coordination of care (as documented) at patient's floor/unit and/or counseling patient: (1) HTN (hypertension) Hypertension type: unspecified Qualified Code(s): I10 - Essential (primary) hypertension (2) Diabetes mellitus Diabetes mellitus complication status: with other specified complication Diabetes mellitus terminologist insulin use: unspecified prison insulin use status Diabetes mellitus type: other specified (including CHARMAINE) Qualified Code(s): E13.69 - Other specified diabetes mellitus with other specified complication
[2019-07-04] MEDS ORDERED: GLUCOSE 40% GEL 15 GM TUBE PO PRN (21:05)
[2019-07-04] MEDS ORDERED: CARBOHYDRATES FOR HYPOGLYCEMIA PO PRN (21:05)
[2019-07-04] MEDS ORDERED: INSULIN GLARGINE SOLOSTAR 100 UNITS/ML 3 ML PEN SQ SCH (21:05)
[2019-07-04] MEDS ORDERED: ACETAMINOPHEN 325 MG TAB PO PRN (21:05)
[2019-07-04] MEDS ORDERED: GLUCAGON FOR INJ 1 MG VIAL SQ PRN (21:05)
[2019-07-04] MEDS ORDERED: DEXTROSE 50% 50 ML SYRINGE IV PRN (21:05)
[2019-07-04] MEDS ORDERED: HydrALAZINE HCL 20 MG/ML VIAL IV PRN (21:05)
[2019-07-04] MEDS ORDERED: GLUCOSE 10 TABS/TUBE PO PRN (21:05)
[2019-07-04] MEDS: FAMOTIDINE 20 MG TAB PO SCH (21:38)
[2019-07-04] MEDS: APIXABAN 5 MG TABLET PO SCH (21:38)
[2019-07-04] MEDS: METOPROLOL TARTRATE 50 MG TAB PO SCH (21:38)
[2019-07-04] MEDS: INSULIN ASPART 100 UNITS/ML 3 ML PEN SC SCH (21:38)
[2019-07-04] MEDS: ASPIRIN 81 MG ECTAB PO SCH (21:38)
[2019-07-05] MEDS: LEVOTHYROXINE SODIUM 88 MCG TABLET PO SCH (05:59)
[2019-07-05 06:14] LABS: Hematocrit (blood only) 32.7 % (37-47); Hemoglobin 10.9 g/dL (12.0-16.0); Mean Corpuscular Hgb Conc 33.3 g/dL (32-36); Mean Corpuscular Volume 93.7 fL (80-100); Mean Platelet Volume 10.4 fL (7.4-10.4); Platelet Count 256 K/uL (130-400); RDW Coefficient of Variation 13.7 % (11.5-14.5); RDW Standard Deviation 46.6 fL (36.4-46.3); Red Blood Count 3.49 M/uL (4.2-5.4)
[2019-07-05 06:51] LABS: BUN Creatinine Ratio 23.5 (10-20); Creatinine Clr Calc Pharmacy 30.3 ml/min; Est GFR (African American) 43.6; Est GFR (Non-African American) 37.7; Magnesium 1.7 mg/dl (1.8-2.4); Potassium 3.7 mmol/L (3.5-5.1)
[2019-07-05] MEDS: ATORVASTATIN 20 MG TAB PO SCH (08:27)
[2019-07-05] MEDS: FAMOTIDINE 20 MG TAB PO SCH ×2 (08:27→20:54)
[2019-07-05] MEDS: APIXABAN 5 MG TABLET PO SCH ×2 (08:27→20:53)
[2019-07-05] MEDS: LOSARTAN/HCTZ 50/12.5MG TAB PO SCH (08:28)
[2019-07-05] MEDS: METOPROLOL TARTRATE 50 MG TAB PO SCH ×2 (08:28→20:54)
[2019-07-05] MEDS: dilTIAZem ER 120 MG CAPCR PO SCH (08:28)
[2019-07-05] MEDS: DULOXETINE HCL 60 MG CAP PO SCH (08:28)
[2019-07-05] MEDS: PANTOprazole 40 MG TAB PO SCH (08:28)
[2019-07-05] MEDS: ASCORBIC ACID 500 MG TAB PO SCH (08:28)
[2019-07-05] MEDS: INSULIN ASPART 100 UNITS/ML 3 ML PEN SC SCH ×3 (08:29→20:56)
[2019-07-05] MEDS: AMLODIPINE BESYLATE 5 MG TAB PO SCH (12:12)
--- NOTE | 2019-07-05 15:59 | Family Medicine Progress Note ---
Date of Service July 05, 2019 Assessment & Plan (1) Confusion: 79 yo F with PMH HTN, DM, and Afib presents after episode of confusion and repetitive aphasia at home. This is the 4th such episode that has required admission in the last 2 months. Workup largely negative other than abnormalities in BP and BSG. Confusion -As above, 4th episode of aphasia and confusion -on recent prior admissions, MRI: No acute intracranial findings, No evidence of intracranial mass, No evidence of acute or subacute infarction. Carotid U/S: no evidence of hemodynamically significant stenosis in R or L carotid arterial system - Head CT: No acute intracranial abnormality. Chronic and age-related change. Also unremarkable CT angiogram of the brain -Seen by neurology multiple times with thought this is dementia worsened by hypo/hyperglycemia or blood pressure. No evidence for seizure activity or epileptiform abnormalities on that admission's EEG -MMSE this admission scored <20 -Prior episodes have been attributed to UTIs; however, her UA this admission is clear. -Will cont monitor BP's and BSG's -added amlodipine 2.5 mg qAM to BP regimen today. See DM section below for BSG management -will need to consider adding dementia medication moving forward on d/c -pt and open to PT as an outpt, script given from last admission HTN -cont diltiazem 120 qam, losartan-HCTZ 100/25 mg qam, and metoprolol tartrate 125 BID. As above, added amlodipine -BP has been stable since administration of amlodipine - Hydralazine PRN Diabetes mellitus -A1c was 9.6% this month. - Increased Lantus to 25 units from 20. This will be the only d/c med for ease of use for both pt and -dc'd aspart on d/c - Diabetic diet Paroxysmal atrial fibrillation -EKG on admission showed sinus - Continue apixaban, digoxin, & calcium channel debra H/O Subdural hematoma -following a recent closed-head injury -pt has been restarted on ASA 81 mg, will cont CKD stage 3, GFR 30-59 ml/min -Baseline Cr ~1.3-1.5. At baseline -Will avoid nephrotoxins FEN/GI: DM Diet DVT prophylaxis: Apixaban FULL CODE Dispo: Tele. Anticipate D/C tomorrow Supervising Physician Co-Signing Physician Notes I personally examined the patient and verified all lane points of history and exam, discussed case, and agree with decision making with Dr Joel. Feeling better now. Seems to be back to baseline. No new complaints. Vitals noted, in general she is awake and alert pleasant no distress. HEENT normocephalic atraumatic mucous members moist. Breathing unlabored no accessory muscle use. Mini-Mental as noted by Dr. Joel. Baseline mentation does seem to be easily confused. Bizarre behaviorher behaviors as far as food preparation etc. seem to be quite consistent with dementia. It appears that this has been diagnosed and discussed before, we re-discussed with patient and more importantly has been. Probably would be reasonable to initiate anticholinergic or NMDA type of medications, but this is better done as an outpatient with close follow-up. Expressive aphasiawhile it may have been behaviors related to the dementia, it is also quite possible she is having small vessel TIA events. Main risks would be hypertension and diabetes. The difficulty is overtreatment with her would put her at excessively high risk for adverse outcomes. We will try to gently improve blood pressure control with 2.5 mg of amlodipine. We will try to gently improve sugar control with an additional 5 units of Lantus (the notes he gives it to her every day in the afternoon). Once she is further removed from her subdural hematoma, would give strong consideration to reinitiating 81 mg as pirin. Discussed all this with her primary care physician [id number] as well. Otherwise as above Subjective 79 yo F found in bed this AM in NAD. Reports no acute overnight events. says back to baseline now in terms of cognition. 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 No other acute concerns or complaints. Review of Systems Review of Systems: All systems reviewed & are unremarkable except as noted in HPI & below Physical Exam Constitutional: + frail appearing Eyes: PERRL, conjunctivae normal, anicteric sclerae Respiratory: normal respiratory effort, lungs clear to auscultation Cardiovascular: RRR, no murmur, no edema Gastrointestinal (Abdomen): normal bowel sounds, soft, nontender, no hepatosplenomegaly Neurologic: Speech / Cognition: no expressive aphasia and no receptive aphasia Psychiatric: A+Ox3, euthymic affect Results & Data Vital Signs (Past 12 Hours) Vital Signs Temp Pulse Pulse Resp BP BP Pulse Ox 07/05/19 15:20 36.5 C 18 125/74 97 07/05/19 12:00 36.3 C L 71 18 141/79 H 97 07/05/19 10:01 71 07/05/19 07:06 36.6 C 68 18 160/68 H 93 07/05/19 04:01 36.5 C 76 20 136/62 97 Laboratory Results Laboratory Results - last 24 hr 07/04/19 07/04/19 07/04/19 16:41 16:43 16:43 WBC 14.41 H RBC 3.85 L Hgb 12.2 Hct 36.4 L MCV 94.5 MCH 31.7 MCHC 33.5 RDW Std Deviation 47.1 H RDW Coeff of Michael 13.7 Plt Count 290 MPV 9.8 Immature Gran % (Auto) 0.3 Neut % (Auto) 77.7 Lymph % (Auto) 14.1 Johnston % (Auto) 6.0 Eos % (Auto) 1.7 Baso % (Auto) 0.2 Immature Gran # (Auto) 0.04 H Neut # (Auto) 11.21 H Lymph # (Auto) 2.03 Johnston # (Auto) 0.86 H Eos # (Auto) 0.24 Baso # (Auto) 0.03 PT 10.5 INR 1.0 APTT 23.9 PTT Ratio 0.9 VBG pH VBG pCO2 VBG pO2 VBG HCO3 VBG O2 Saturation VBG Base Excess Barometric Pressure Sodium Potassium Chloride Carbon Dioxide Anion Gap BUN Creatinine Est Cr Clr Drug Dosing Est GFR ( Amer) Est GFR (Non-Af Amer) BUN/Creatinine Ratio Glucose POC Glucose 192 H Calcium Magnesium Total Bilirubin AST ALT Alkaline Phosphatase Troponin I Total Protein Albumin Globulin Albumin/Globulin Ratio Urine Color Urine Appearance Urine pH Ur Specific [place] Urine Protein Urine Glucose (UA) Urine Ketones Urine Blood Urine Nitrite Urine Bilirubin Urine Urobilinogen Ur Leukocyte Esterase Urine WBC (Auto) Urine RBC (Auto) U Hyaline Cast (Auto) U Epithel Cells (Auto) Urine Bacteria (Auto) Digoxin 07/04/19 07/04/19 07/04/19 16:43 16:43 16:43 WBC RBC Hgb Hct MCV MCH MCHC RDW Std Deviation RDW Coeff of Michael Plt Count MPV Immature Gran % (Auto) Neut % (Auto) Lymph % (Auto) Johnston % (Auto) Eos % (Auto) Baso % (Auto) Immature Gran # (Auto) Neut # (Auto) Lymph # (Auto) Johnston # (Auto) Eos # (Auto) Baso # (Auto) PT INR APTT PTT Ratio VBG pH 7.38 VBG pCO2 45 VBG pO2 22 VBG HCO3 26 VBG O2 Saturation < 60.0 VBG Base Excess 0.8 Barometric Pressure 732.2 Sodium 138 Potassium 4.3 Chloride 103 Carbon Dioxide 26 Anion Gap 9.0 BUN 33 H Creatinine 1.55 H Est Cr Clr Drug Dosing Not Reportable Est GFR ( Amer) 36.3 Est GFR (Non-Af Amer) 31.3 BUN/Creatinine Ratio 21.4 H Glucose 203 H POC Glucose Calcium 8.3 L Magnesium 1.8 Total Bilirubin 0.3 AST 13 L ALT 19 Alkaline Phosphatase 115 Troponin I < 0.015 Total Protein 7.8 Albumin 3.6 Globulin 4.2 H Albumin/Globulin Ratio 0.9 Urine Color Urine Appearance Urine pH Ur Specific [place] Urine Protein Urine Glucose (UA) Urine Ketones Urine Blood Urine Nitrite Urine Bilirubin Urine Urobilinogen Ur Leukocyte Esterase Urine WBC (Auto) Urine RBC (Auto) U Hyaline Cast (Auto) U Epithel Cells (Auto) Urine Bacteria (Auto) Digoxin 1.7 07/04/19 07/04/19 07/05/19 18:37 21:33 05:45 WBC 11.50 H RBC 3.49 L Hgb 10.9 L Hct 32.7 L MCV 93.7 MCH 31.2 MCHC 33.3 RDW Std Deviation 46.6 H RDW Coeff of Michael 13.7 Plt Count 256 MPV 10.4 Immature Gran % (Auto) Neut % (Auto) Lymph % (Auto) Johnston % (Auto) Eos % (Auto) Baso % (Auto) Immature Gran # (Auto) Neut # (Auto) Lymph # (Auto) Johnston # (Auto) Eos # (Auto) Baso # (Auto) PT INR APTT PTT Ratio VBG pH VBG pCO2 VBG pO2 VBG HCO3 VBG O2 Saturation VBG Base Excess Barometric Pressure Sodium Potassium Chloride Carbon Dioxide Anion Gap BUN Creatinine Est Cr Clr Drug Dosing Est GFR ( Amer) Est GFR (Non-Af Amer) BUN/Creatinine Ratio Glucose POC Glucose 215 H Calcium Magnesium Total Bilirubin AST ALT Alkaline Phosphatase Troponin I Total Protein Albumin Globulin Albumin/Globulin Ratio Urine Color Yellow Urine Appearance Cloudy A Urine pH 5.5 Ur Specific [place] 1.028 Urine Protein 2+ H Urine Glucose (UA) Negative Urine Ketones Negative Urine Blood Trace H Urine Nitrite Negative Urine Bilirubin Negative Urine Urobilinogen Negative Ur Leukocyte Esterase Negative Urine WBC (Auto) 1-5 Urine RBC (Auto) >30 H U Hyaline Cast (Auto) 1-5 U Epithel Cells (Auto) 20-30 H Urine Bacteria (Auto) Negative Digoxin 07/05/19 07/05/19 07/05/19 05:45 07:24 11:42 WBC RBC Hgb Hct MCV MCH MCHC RDW Std Deviation RDW Coeff of Michael Plt Count MPV Immature Gran % (Auto) Neut % (Auto) Lymph % (Auto) Johnston % (Auto) Eos % (Auto) Baso % (Auto) Immature Gran # (Auto) Neut # (Auto) Lymph # (Auto) Johnston # (Auto) Eos # (Auto) Baso # (Auto) PT INR APTT PTT Ratio VBG pH VBG pCO2 VBG pO2 VBG HCO3 VBG O2 Saturation VBG Base Excess Barometric Pressure Sodium 136 Potassium 3.7 Chloride 102 Carbon Dioxide 24 Anion Gap 10.0 BUN 31 H Creatinine 1.33 H Est Cr Clr Drug Dosing 30.3 Est GFR ( Amer) 43.6 Est GFR (Non-Af Amer) 37.7 BUN/Creatinine Ratio 23.5 H Glucose 158 H POC Glucose 176 H 236 H Calcium 8.0 L Magnesium 1.7 L Total Bilirubin AST ALT Alkaline Phosphatase Troponin I Total Protein Albumin Globulin Albumin/Globulin Ratio Urine Color Urine Appearance Urine pH Ur Specific [place] Urine Protein Urine Glucose (UA) Urine Ketones Urine Blood Urine Nitrite Urine Bilirubin Urine Urobilinogen Ur Leukocyte Esterase Urine WBC (Auto) Urine RBC (Auto) U Hyaline Cast (Auto) U Epithel Cells (Auto) Urine Bacteria (Auto) Digoxin Medications Administered Current Inpatient Medications Acetaminophen (Tylenol) 650 mg PO Q4H PRN PRN Reason: pain/fever Stop: 08/03/19 21:04 Amlodipine Besylate (Norvasc) 2.5 mg PO QAM [facility] Stop: 08/04/19 10:59 Last Admin: 07/05/19 12:12 Dose: 2.5 mg Documented by: Apixaban (Eliquis) 5 mg PO BID [facility] Stop: 08/03/19 21:04 Last Admin: 07/05/19 08:27 Dose: 5 mg Documented by: Ascorbic Acid (Vitamin C) 500 mg PO QAM [facility] Stop: 08/04/19 08:59 Last Admin: 07/05/19 08:28 Dose: 500 mg Documented by: Aspirin (Ecotrin Ectab) 81 mg PO HS [facility] Stop: 08/03/19 21:04 Last Admin: 07/04/19 21:38 Dose: 81 mg Documented by: Atorvastatin [facility]) [facility] Stop: 08/04/19 08:59 Last Admin: 07/05/19 08:27 Dose: 20 mg Documented by: Dextrose (Dextrose 50%) 25 - 50 ml IV UD PRN; Protocol PRN Reason: Hypoglycemia Protocol Stop: 08/03/19 21:04 Digoxin (Lanoxin) 0.125 mg PO DAILY@1600 [facility] Stop: 08/04/19 15:59 Diltiazem HCl (Tiazac) 120 mg PO [facility] Stop: 08/04/19 08:59 Last Admin: 07/05/19 08:28 Dose: 120 mg Documented by: Duloxetine HCl (Cymbalta) 60 mg PO [facility] Stop: 08/04/19 08:59 Last Admin: 07/05/19 08:28 Dose: 60 mg Documented by: Famotidine (Pepcid) 20 mg PO BID [facility] Stop: 08/03/19 21:04 Last Admin: 07/05/19 08:27 Dose: 20 mg Documented by: Glucagon (Glucagen) 1 mg SQ UD PRN; Protocol PRN Reason: Hypoglycemia Protocol Stop: 08/03/19 21:04 Glucose (Glucose 40%) 15 - 30 gm PO UD PRN; Protocol PRN Reason: Hypoglycemia Protocol Stop: 08/03/19 21:04 Glucose (Dex4 Glucose) 4 - 8 tabs PO UD PRN; Protocol PRN Reason: Hypoglycemia Protocol Stop: 08/03/19 21:04 HCTZ/Losartan Potassium (Hyzaar 50/12.5mg) 1 tab PO [facility] Stop: 08/04/19 08:59 Last Admin: 07/05/19 08:28 Dose: 1 tab Documented by: Hydralazine HCl (Hydralazine Hcl) 5 mg IV Q4H PRN PRN Reason: SBP > 180 or DBP > 110 Stop: 08/03/19 21:04 Insulin Aspart (Novolog Flexpen) 0 units SC ACHS [facility] Stop: 08/04/19 16:29 Insulin Glargine (Lantus Solostar Pen) 25 units SQ PM [facility] Stop: 08/04/19 20:59 Levothyroxine Sodium (Synthroid) 88 mcg PO DAILYBB [facility] Stop: 08/04/19 06:29 Last Admin: 07/05/19 05:59 Dose: 88 mcg Documented by: Metoprolol Tartrate (Lopressor) 125 mg PO BID [facility] Stop: 08/03/19 21:04 Last Admin: 07/05/19 08:28 Dose: 125 mg Documented by: Miscellaneous (Carbohydrates For Hypoglycemia) 15 - 30 gm PO UD PRN PRN Reason: Hypoglycemia Treatment Stop: 08/03/19 21:04 Pantoprazole Sodium (Protonix) 40 mg PO DAILY [facility] Stop: 08/04/19 08:59 Last Admin: 07/05/19 08:28 Dose: 40 mg Documented by: PG Care Time/CCT Total # of Minutes Spent Total Time Spent with Patient: Total time spent is greater than 50% in coordination of care (as documented) at patient's floor/unit and/or counseling patient: Resident Activity Tracking Resident Involvement: Resident Care Provided Care Provided: Adult Hospital Medicine
[2019-07-05] MEDS ORDERED: DIGOXIN 0.125 MG TAB PO SCH (16:00)
[2019-07-05] MEDS: ASPIRIN 81 MG ECTAB PO SCH (20:55)
[2019-07-05] MEDS ORDERED: INSULIN GLARGINE SOLOSTAR 100 UNITS/ML 3 ML PEN SQ SCH (21:00)
[2019-07-06] MEDS: LEVOTHYROXINE SODIUM 88 MCG TABLET PO SCH (06:08)
[2019-07-06 07:10] LABS: Basophils # (auto) 0.03 K/uL (0-0.2); Basophils % (auto) 0.3 %; Eosinophils # (auto) 0.22 K/uL (0-0.5); Eosinophils % (auto) 2.4 %; Hemoglobin 11.3 g/dL (12.0-16.0); Immature Granulocytes # (auto) 0.02 K/uL (0.00-0.02); Immature Granulocytes % (auto) 0.2 %; Lymphocytes # (auto) 1.57 K/uL (1.2-3.4); Lymphocytes % (auto) 16.8 %; Mean Corpuscular Hgb Conc 33.2 g/dL (32-36); Mean Corpuscular Volume 93.9 fL (80-100); Mean Platelet Volume 10.2 fL (7.4-10.4); Monocytes # (auto) 0.72 K/uL (0.11-0.59); Monocytes % (auto) 7.7 %; Neutrophils # (auto) 6.78 K/uL (1.4-6.5); Neutrophils % (auto) 72.6 %; Platelet Count 252 K/uL (130-400); RDW Coefficient of Variation 13.6 % (11.5-14.5); RDW Standard Deviation 46.6 fL (36.4-46.3); Red Blood Count 3.62 M/uL (4.2-5.4); White Blood Count 9.34 K/uL (4.8-10.8)
[2019-07-06 07:45] LABS: BUN Creatinine Ratio 21.1 (10-20); Calcium 7.9 mg/dl (8.5-10.1); Creatinine Clr Calc Pharmacy 23.5 ml/min; Est GFR (African American) 32.7; Est GFR (Non-African American) 28.2; Potassium 3.9 mmol/L (3.5-5.1)
[2019-07-06] MEDS: DULOXETINE HCL 60 MG CAP PO SCH (08:06)
[2019-07-06] MEDS: APIXABAN 5 MG TABLET PO SCH (08:07)
[2019-07-06] MEDS: LOSARTAN/HCTZ 50/12.5MG TAB PO SCH (08:07)
[2019-07-06] MEDS: ATORVASTATIN 20 MG TAB PO SCH (08:07)
[2019-07-06] MEDS: METOPROLOL TARTRATE 50 MG TAB PO SCH (08:08)
[2019-07-06] MEDS: AMLODIPINE BESYLATE 5 MG TAB PO SCH (08:09)
[2019-07-06] MEDS: FAMOTIDINE 20 MG TAB PO SCH (08:10)
[2019-07-06] MEDS: dilTIAZem ER 120 MG CAPCR PO SCH (08:11)
[2019-07-06] MEDS: ASCORBIC ACID 500 MG TAB PO SCH (08:11)
[2019-07-06] MEDS: PANTOprazole 40 MG TAB PO SCH (08:11)
[2019-07-06] MEDS: INSULIN ASPART 100 UNITS/ML 3 ML PEN SC SCH ×2 (08:16→12:11)
--- NOTE | 2019-07-06 11:52 | Discharge Summary ---
Date of Service July 06, 2019 Admission HPI Per Admitting Provider 79yo F w/ hx of HTN, DM, and afib who presents with episode of confusion. Per her , she was in her normal state of health throughout the day yesterday. He reports that he got up this morning and started working outside without speaking to her. He interacted with her midmorning and felt that she was unable to speak appropriately. He notes that she was perseverating on a single phrase. He does not recall the exact phrase, but reports of something like "not possible." No matter what he said, she would respond with not possible. The patient herself does realize that she is having some confusion and trouble speaking. She also notes a left-sided temporal headache that she reports is "not bad" at present, but was worse earlier on during the day. Otherwise put the patient and her report that she has been in her usual state of health prior to today. She denies any recent falls, new or different pain apart from her headache. Principal Diagnosis confusion, aphasia Discharge Exam Constitutional + frail appearing Eyes PERRL, conjunctivae normal, anicteric sclerae Respiratory normal respiratory effort, lungs clear to auscultation Cardiovascular RRR, no murmur, no edema Gastrointestinal (Abdomen) normal bowel sounds, soft, nontender, no hepatosplenomegaly Neurologic Speech / Cognition: no expressive aphasia and no receptive aphasia Psychiatric A+Ox3, euthymic affect Discharge Data Allergies Allergy/AdvReac Type Severity Reaction Status Date / Time adhesive Allergy Mild red/blistered Verified 07/04/19 17:35 skin latex Allergy Mild CONTACT Verified 07/04/19 17:35 DERMATITIS carvedilol Allergy Unknown pt unsure, Verified 07/04/19 17:35 listed prior acetaminophen [From Percocet] Allergy Unknown Verified 07/04/19 17:35 gabapentin Allergy Unknown Verified 07/04/19 17:35 ranitidine [From Zantac] Allergy Unknown Verified 07/04/19 17:35 omeprazole AdvReac Intermediate HALLUCINATI Verified 07/04/19 17:35 ONS oxycodone AdvReac Intermediate itching Verified 07/04/19 17:35 phenobarbital AdvReac Intermediate HALLUCINATI Verified 07/04/19 17:35 ONS cephalexin AdvReac Mild DIARRHEA Verified 07/04/19 17:35 fentanyl AdvReac Mild altered Verified 07/04/19 17:35 mental status levofloxacin AdvReac Mild DIARRHEA Verified 07/04/19 17:35 meperidine AdvReac Mild HEADACHES Verified 07/04/19 17:35 metformin AdvReac Mild DIARRHEA Verified 07/04/19 17:35 Sulfa (Sulfonamide AdvReac Mild DIARRHEA Verified 07/04/19 17:35 Antibiotics) fluoxetine AdvReac Unknown Unknown Verified 07/04/19 17:35 Consultations 07/04/19 18:10 ED Decision to Admit Stat Ordered Studies 07/04/19 16:33 CT head/brain wo con Stat 07/04/19 16:45 CT angio head w con Stat Hospital Course (1) Confusion: 79 yo F with PMH HTN, DM, and Afib presents after episode of confusion and repetitive aphasia at home. This is the 4th such episode that has required admission in the last 2 months. Workup largely negative other than abnormalities in BP and BSG. The following is the medical management during stay here: Confusion -As above, 4th episode of aphasia and confusion -on recent prior admissions, MRI: No acute intracranial findings, No evidence of intracranial mass, No evidence of acute or subacute infarction. Carotid U/S: no evidence of hemodynamically significant stenosis in R or L carotid arterial system - Head CT: No acute intracranial abnormality. Chronic and age-related change. Also unremarkable CT angiogram of the brain -Seen by neurology multiple times with thought this is dementia worsened by hypo/hyperglycemia or blood pressure. No evidence for seizure activity or epileptiform abnormalities on that admission's EEG -MMSE this admission scored <20 -Prior episodes have been attributed to UTIs; however, her UA this admission is clear. -added amlodipine 2.5 mg qAM to BP regimen today. Increased Lantus to 25 units from 20 units -will need to consider adding anticholinergics or NMDA type medication as an outpt with close f/u -pt and open to PT as an outpt, script given from last admission HTN -cont diltiazem 120 qam, losartan-HCTZ 100/25 mg qam, and metoprolol tartrate 125 BID. As above, added amlodipine -BP has been stable since administration of amlodipine - Hydralazine PRN Diabetes mellitus -A1c was 9.6% this month. - Increased Lantus to 25 units from 20 as above Paroxysmal atrial fibrillation -EKG on admission showed sinus - Continued apixaban, digoxin, & calcium channel debra H/O Subdural hematoma -following a recent closed-head injury -pt had been restarted on ASA 81 mg, will cont CKD stage 3, GFR 30-59 ml/min -Baseline Cr ~1.3-1.5. At baseline here At time of d/c, pt had no other acute concerns or complaints. Total Time Total Time Spent Total Time Spent (In Minutes): Greater than 30 Discharge Plan Discharge Items Patient Disposition: Home - Self-Care Reason For Visit: CONFUSION Discharge Diagnosis: confusion, aphasia Discharge Goals: Improve disease control and Improve function Activity: Per 'Additional Instructions' section Non-emergency contact: Primary Care Provider Call non-emergency contact if: you have any medication questions and your symptoms worsen Follow-up/Referrals: Jack Holloway MD [Primary Care Provider] - 07/08/19 2:00 pm (Please, follow up with Dr. Holloway on ThursdayJuly 08 at 2:00 pm. *If you need to change this appointment, call the office at [phone].) Diet: Carb Consistent or DM2 Addtl Provider Instructions: You were admitted with concerns of confusion and repetitive word speaking. This was thought to be due to a combination of early signs of dementia and some small vessel changes in your brain caused by high blood pressures and uncontrolled blood sugars. Please follow the below instructions on discharge: -Please follow up with your PCP on 07/11. At this appt, you will discuss starting a anti-dementia medication -Anti dementia practices: walk at least 30 min a day. Socialize with friends, going to faith, etc. Proven to help combat dementia. -You will start a new blood pressure medication, Amlodipine 2.5 mg taken every morning -We increased your insulin injection Lantus to 25 units from 20 units - If your symptoms persist/worsen, then please see your PCP Prescriptions: New amlodipine [Norvasc] 5 mg Tablet 2.5 mg PO QAM Qty: 30 RF: 0 Continued glimepiride 2 mg tablet 2 mg PO BID Qty: 180 RF: 3 diltiazem HCl 120 mg capsule,extended release 24 hr 120 mg PO QAM Qty: 30 RF: 5 metoprolol tartrate 100 mg tablet 125 mg PO BID Qty: 180 RF: 3 duloxetine 60 mg capsule,delayed release(DR/EC) 60 mg PO QAM Qty: 90 RF: 0 cyclosporine 0.05 % dropperette 1 drp OPB BID RF: 0 digoxin 125 mcg tablet 125 mcg PO QAM RF: 0 Eliquis 5 mg tablet 5 mg PO BID RF: 0 famotidine 20 mg tablet 20 mg PO BID RF: 0 rabeprazole [AcipHex] 20 mg Tablet,Delayed Release (Dr/Ec) 20 mg PO QAM RF: 0 atorvastatin 20 mg Tablet 20 mg PO QAM RF: 0 aspirin [Aspirin Low Dose] 81 mg Tablet,Delayed Release (Dr/Ec) 81 mg PO HS RF: 0 multivitamin Capsule 1 cap PO QAM RF: 0 levothyroxine 88 mcg Capsule 88 mcg PO QAM RF: 0 ascorbic acid (vitamin C) [Vitamin C] 500 mg Tablet 500 mg PO QAM RF: 0 cholecalciferol (vitamin D3) [Vitamin D3] 1,000 unit Capsule 1,000 unit PO QAM RF: 0 losartan-hydrochlorothiazide 100-25 mg Tablet 1 tab PO QAM RF: 0 Changed Lantus Solostar U-100 Insulin 100 unit/mL (3 mL) insulin pen 25 units SQ PM Qty: 0 RF: 0 Stand-Alone Forms: [facility]/Other Patient Handouts: Dementia Discharge Orders: Discharge Order (Routine); Ordered 07/06/19 Ordered By: Rei Joel Admission Data Admit Date/Time: 07/04/19 19:00 Attending Provider: Toan Wu Admit Provider: Dylan Montanez Primary Care Provider: Jack Holloway Other Providers: Dylan Montanez Service: Telemetry Medical Other Interventions: Discharge Summary Assessment (RN) Last Done: 07/06/19 11:52 DC Date/Time DO NOT enter until pt leaves facility: 07/06/19 13:30 Supervising Physician Co-Signing Physician Notes I personally examined the patient and verified all lane points of history and exam, discussed case, and agree with decision making with Dr Joel. Feeling up to going home. Only complaint is that notes she repeats q uestions and does not seem to remember things. Vitals noted, in general she is awake and alert pleasant no distress. HEENT normocephalic atraumatic mucous members moist. Breathing unlabored no accessory muscle use. Baseline mentation does seem to be easily confused, but similar to yesterday Bizarre behaviorher behaviors as far as food preparation etc. seem to be quite consistent with dementia. Extensive discussions on management of dementia (medications, exercise, social stimulation, and the unfortunate but inevitable progression to where the will likely need help). Patient and expressed good understanding. Stable for home. Close PCP follow-up. Expressive aphasiawhile it may have been behaviors related to the dementia, it is also quite possible she is having small vessel TIA events. Main risks would be hypertension and diabetes. The difficulty is overtreatment with her would put her at excessively high risk for adverse outcomes. Does seem to be tolerating additional amlodipine well, without significant orthostasis. Does seem to be tolerating increased dose of Lantus without hypoglycemia. Continue outpatient follow-up. Would like to add 81 mg aspirin, but would like to have patient be further removed from her subdural bleed before stacking this on top of anticoagulation. Otherwise as above Resident Activity Tracking Resident Involvement: Resident Care Provided Care Provided: Adult Hospital Medicine
== END 2019-07-06 13:30 | disposition home or self-care (01) ==
LOC: 2W 16:27 → ED 16:27 → SUATTDRO 19:00 → 2W 20:12
DX: E11.22 Type 2 diabetes mellitus with diabetic chronic kidney disease; R41.0 Disorientation, unspecified; R47.01 Aphasia; Z68.30 Body mass index [BMI] 30.0-30.9, adult; I48.0 Paroxysmal atrial fibrillation; Z88.2 Allergy status to sulfonamides; N18.3 Chronic kidney disease, stage 3 (moderate); E03.9 Hypothyroidism, unspecified; Z79.899 Other long term (current) drug therapy; Z91.040 Latex allergy status; E66.9 Obesity, unspecified; Z79.4 Long term (current) use of insulin; I12.9 Hypertensive chronic kidney disease with stage 1 through stage 4 chronic kidney disease, or unspecified chronic kidney disease; Z86.73 Personal history of transient ischemic attack (TIA), and cerebral infarction without residual deficits; G47.33 Obstructive sleep apnea (adult) (pediatric)

== ENCOUNTER 2020-01-25 14:24 | Observation (INO) ==
--- NOTE | 2020-01-25 14:45 | CT Scan Report ---
CT head/brain wo con CLINICAL HISTORY: 79 years-old Female with Stroke Alert. Acute strokelike symptoms TECHNIQUE: Multiple axial CT images of the head were obtained without contrast. A dose lowering tech nique was utilized adhering to the principles of ALARA. CT DOSE: 537.48 mGy.cm COMPARISON: Head CT 10/31/2019 FINDINGS: No acute intracranial hemorrhage, midline shift, intracranial mass, hydrocephalus, territorial ischem ia or abnormal extra-axial collection. Age-related involutional changes with mild ex vacuo organomega ly. Cerebral vascular calcifications. Senescent calcifications of the bilateral basal ganglia. The calvarium is intact. The paranasal sinuses, mastoid air cells, and middle ear cavities are clear . IMPRESSION: No acute intracranial abnormality. ACT 112: Negative or not required by law. The above report was generated using voice recognition software. It may contain grammatical, syntax o r spelling errors. Electronically signed by: Brian Orosco M.D. 01/25/2020 2:44 PM
[2020-01-25 14:56] LABS: Hematocrit (blood only) 35.2 % (37-47); Hemoglobin 11.6 g/dL (12.0-16.0); Mean Corpuscular Hemoglobin 31.4 pg (25-34); Mean Corpuscular Volume 95.1 fL (80-100); Mean Platelet Volume 10.6 fL (7.4-10.4); Platelet Count 297 K/uL (130-400); RDW Coefficient of Variation 13.4 % (11.5-14.5); RDW Standard Deviation 46.3 fL (36.4-46.3); White Blood Count 12.98 K/uL (4.8-10.8)
[2020-01-25] MEDS ORDERED: HydrALAZINE HCL 20 MG/ML VIAL IV ONE (14:59)
[2020-01-25] MEDS ORDERED: ACETAMINOPHEN 1,000 MG/100 ML VIAL IV STA (14:59)
[2020-01-25 15:02] LABS: iSTAT Creatinine 1.7 mg/dl (0.6-1.3); iSTAT Hemoglobin 11.6 g/dl (12.0-16.0); iSTAT Ionized Calcium 1.06 mmol/l (1.12-1.32); iSTAT Potassium 4.5 mmol/L (3.3-5.0)
[2020-01-25 15:06] LABS: Partial Thromboplastin Ratio 1.1; Partial Thromboplastin Time 30.9 Seconds (21.0-31.0); Prothrombin Time 10.8 Seconds (9.0-12.0)
[2020-01-25] MEDS: SODIUM CHLORIDE 0.9% 1000ML 1,000 ML IV SCH (15:07)
[2020-01-25 15:12] LABS: Albumin Level 3.6 gm/dl (3.4-5.0); BUN Creatinine Ratio 20.9 (10-20); Calcium 8.6 mg/dl (8.5-10.1); Creatinine Clr Calc Pharmacy 24.2 ml/min; Est GFR (African American) 32.7; Est GFR (Non-African American) 28.2; Magnesium 1.8 mg/dl (1.8-2.4); Potassium 4.4 mmol/L (3.5-5.1)
[2020-01-25 15:15] LABS: Albumin Globulin Ratio 0.8 (0.9-2); Bilirubin,Total 0.2 mg/dl (0.2-1); Globulin 4.6 gm/dl (2.5-4.0); Total Protein 8.2 gm/dl (6.4-8.2)
--- NOTE | 2020-01-25 15:18 | XRay Report ---
XR chest 1V portable CLINICAL HISTORY: 79 years-old Female presenting with stroke alert. TECHNIQUE: Portable upright AP view of the chest was obtained. COMPARISON: 07/04/2019. FINDINGS: Atherosclerosis of the aortic arch. Cardiac silhouette enlarged. Lungs and pleural spaces clear. Dege nerative changes of the thoracic spine. Degenerative changes of the shoulders with an anchor noted in the left humeral head. Upper abdomen normal. IMPRESSION: 1. Cardiomegaly. No other convincing evidence of acute cardiopulmonary disease. ACT 112: Negative or not required by law. Electronically signed by: George Conklin M.D. 01/25/2020 3:17 PM
--- NOTE | 2020-01-25 16:02 | History & Physical Report ---
Date of Service January 25, 2020 Assessment & Plan (1) Transient ischemic attack: -Admit to med surg for Obs -Stroke order set completed -Neurology consulted, Dr. Cabezas -PT/OT consults -Speech eval, allow diet afterwards -Check A1c and lipids with a.m. labs -Allow for permissive hypertension at this time-continue metoprolol, digoxin and diltiazem--- we will HOLD losartan/hydrochlorothiazide - Check orthostatic w/ hx of lightheadedness with standing. Pt also had recent increased doses of imdur to 90 mg and diltiazem to BID - consider cardiology consult - PT/OT consults (2) Chronic cerebral ischemia: (3) Subdural hematoma: -Hx of such in January 2019 causing small subdural hematoma secondary to multiple falls --that has since resolved -Now back on aspirin, Eliquis -NO acute intracranial abnormality seen on imaging studies including CT and MR I/MRA -Has previously followed with Jaclyn Cabezas (4) Atrial fibrillation: -Paroxysmal, s/p cardioversion, rate controlled on digoxin and diltiazem -EKG reviewed -Continue on Eliquis 5 mg twice daily (5) Hypertension: -Allow permissive HTN: continue metoprolol 125 mg BID and digoxin 0.125 mg daily, Imdur 90 mg daily, diltiazem -HOLD on losartan/HCTZ with slightly increased kidney function -Monitor BP -Last echo completed on 12/15/2019 for history of LLB and a fib showed no regional wall motion abnormalities, borderline concentric LVH, LVEF =65 to 70%, mild mitral regurg, mild tricuspid regurg -Consider cardiology consult (6) HLD (hyperlipidemia): -Continue atorvastatin 20 mg, possibly need to increase to 40 mg if could tolerate (7) PAD (peripheral artery disease): - stable (8) Diabetes mellitus, type II: -Hold glimepiride -ISS with Accu-Cheks AC at bedtime -Continue home dosing of Lantus 40 units QPM -Checking A1c with a.m. labs (9) Chronic kidney disease, stage 3: -Creatinine equal 1.69, BUN elevated at 35, appears to be slightly elevated compared to her baseline -Hold losartan/HCTZ -Follow a.m. labs -Likely partially due to hypertension, Imdur increased to 90 mg QAM earlier this month -Follows with Dr. Aguirre as an outpatient (10) Chronic osteoarthritis: -Stable (11) LUZMA (obstructive sleep apnea): (12) Vitamin D deficiency: -Continue supplementation, vitamin D3 1000 units daily (13) Hypothyroidism: -Status post thyroidectomy, continue levothyroxine 88 mcg daily, was recently increased at the end of November, recheck TSH during this hospital stay as was scheduled for in 6 weeks (14) Anemia: - Hgb 11.6, anemia of chronic disease (15) DVT prophylaxis: -Teds, Eliquis CODE STATUS: DNR/DNI Disposition: Patient from home, CM to assist with discharge planning, likely remain in hospital for 1 to 2 days History of Present Illness Primary Care Provider: YANET Zhao This is a 79 yo F with PMhx of CAD, atrial fibrillation on Eliquis, HTN, HLD, DM type II, anemia, history of CVA and subdural hematoma in January 2019, CKD stage III, restless leg syndrome, chronic fine resting tremor, chronic gastritis, LUZMA, hypothyroidism, spinal stenosis, vitamin D deficiency who presents with acute onset of difficulty walking and weakness. Patient's is at bedside. Patient and her were out shopping this morning, picked up lunch and went home. During the time out she noticed she had progressive R sided leg weakness where it was difficult for her to get into the car. When she was in her living room, she began having difficulty walking and was leaning to the left with leg weakness, and almost fell but her caught her. No trauma or LOC. She admits to feeling lightheaded prior to the fall and had gotten up from a sitting position. She reports 3 weeks of some stuttered speech, not slurred, and thinks that was a little worse this morning. All her sx have since resolved since being in the ER. Allergies Allergy/AdvReac Type Severity Reaction Status Date / Time adhesive Allergy Mild red/blistered Verified 01/24/20 11:15 skin latex Allergy Mild CONTACT Verified 01/24/20 11:15 DERMATITIS carvedilol Allergy Unknown pt unsure, Verified 01/24/20 11:15 listed prior acetaminophen [From Percocet] Allergy Unknown Verified 01/24/20 11:15 gabapentin Allergy Unknown Verified 01/24/20 11:15 ranitidine [From Zantac] Allergy Unknown Verified 01/24/20 11:15 omeprazole AdvReac Intermediate HALLUCINATI Verified 01/24/20 11:15 ONS oxycodone AdvReac Intermediate itching Verified 01/24/20 11:15 phenobarbital AdvReac Intermediate HALLUCINATI Verified 01/24/20 11:15 ONS cephalexin AdvReac Mild DIARRHEA Verified 01/24/20 11:15 fentanyl AdvReac Mild altered Verified 01/24/20 11:15 mental status levofloxacin AdvReac Mild DIARRHEA Verified 01/24/20 11:15 meperidine AdvReac Mild HEADACHES Verified 01/24/20 11:15 metformin AdvReac Mild DIARRHEA Verified 01/24/20 11:15 Sulfa (Sulfonamide AdvReac Mild DIARRHEA Verified 01/24/20 11:15 Antibiotics) fluoxetine AdvReac Unknown Unknown Verified 01/24/20 11:15 Home Medications Home Medications Medication Instructions Recorded Confirmed Type aspirin [Aspirin Low Dose] 81 mg PO HS 07/21/18 01/25/20 History ascorbic acid (vitamin C) [Vitamin 500 mg PO QAM 02/23/19 01/25/20 History C] glimepiride 2 mg tablet 2 mg PO BID #180 tab 04/26/19 01/25/20 Rx cyclosporine 0.05 % eye drops in a 1 drp OPB BID ea 07/03/19 01/25/20 History dropperette acetaminophen 325 mg tablet 650 mg PO HS tab 07/20/19 01/25/20 History cholecalciferol (vitamin D3) 25 1,000 units PO QAM cap 07/20/19 01/25/20 History mcg (1,000 unit) capsule multivitamin 1 cap PO QPM cap 07/21/19 01/25/20 History blood sugar diagnostic #100 ea 08/03/19 01/24/20 Rx lancets 33 gauge #100 ea 08/03/19 01/24/20 Rx duloxetine 60 mg capsule,delayed 60 mg PO QAM #90 cap 08/09/19 01/25/20 Rx release rabeprazole 20 mg tablet,delayed 20 mg PO QAM #180 tab 08/25/19 01/25/20 Rx release losartan 100 1 tab PO DAILY #90 tab 11/29/19 01/25/20 Rx mg-hydrochlorothiazide 25 mg tablet atorvastatin 20 mg tablet 20 mg PO QAM #90 tab 12/05/19 01/25/20 Rx diltiazem HCl 120 mg capsule,24 120 mg PO BID #180 cap 12/08/19 01/25/20 Rx hr,extended release levothyroxine 88 mcg tablet 88 mcg PO DAILY #90 tab 12/08/19 01/25/20 Rx apixaban 2.5 mg tablet 2.5 mg PO BID #60 tab 01/10/20 01/25/20 Rx digoxin 125 mcg (0.125 mg) tablet 125 mcg PO 3XWK tab 01/11/20 01/25/20 History pen needle, diabetic 33 gauge x #100 ea 01/13/20 01/24/20 Rx /32" insulin glargine 100 unit/mL (3 40 units SQ QPM #15 ml 01/18/20 01/25/20 Rx mL) subcutaneous pen valacyclovir 1 gram tablet 1,000 mg PO DAILY PRN #30 tab 01/24/20 01/25/20 Rx isosorbide mononitrate 30 mg PO QAM 01/25/20 01/25/20 History isosorbide mononitrate 60 mg PO QAM 01/25/20 01/25/20 History metoprolol tartrate 125 mg PO BID 01/25/20 01/25/20 History Past Med/Surg History Medical History Anxiety Atrial fibrillation (Chronic) Benign essential tremor Bowel perforation Chronic gastritis Chronic kidney disease, stage 3 (Chronic) Chronic osteoarthritis (Chronic) Depression Diabetes mellitus, type II (Chronic) Diverticular disease HX DIVERTICULITIS PER RECORDS GERD (gastroesophageal reflux disease) Hiatal hernia History of blood transfusion POST-OP ROBE History of palpitations HLD (hyperlipidemia) Hx of intestinal obstruction 50 YEARS AGO PER RECORDS Hypertension (Chronic) Hypothyroidism (Chronic) 2/2 thyroidectomy IBS (irritable bowel syndrome) Macular degeneration Migraine headache (Chronic) Obesity LUZMA (obstructive sleep apnea) NO DEVICE Osteoarthritis Osteopenia (Chronic) PAD (peripheral artery disease) (Chronic) Paroxysmal atrial fibrillation (Resolved) CURRENTLY AND SCHEDULED FOR CARDIOVERSION RLS (restless legs syndrome) RLS (restless legs syndrome) Sleep apnea (Chronic) Spinal stenosis (Chronic) Transient ischemic attack (Acute) Transient ischemic attack (TIA) 03/2018 Vitamin D deficiency (Chronic) Surgical History Family history of reaction to anesthesia SON-HARD TIME WAKING UP. H/O total thyroidectomy H/O: hysterectomy History of back surgery LUMBAR DISCECTOMY History of blepharoplasty History of bowel resection History of cardiac cath X2 TOTAL (10+ YEARS AGO)= NO STENTS History of herniorrhaphy VENTRAL HERNIA History of inguinal hernia repair X3 (CHILD) History of laryngoscopy REMOVAL OF POLYPS History of repair of hiatal hernia 02/2019 History of repair of rotator cuff RIGHT X3, LEFT X 1 History of tubal ligation Hx of hand surgery LUMP REMOVED FROM RIGHT HAND Previous section X3 S/P appendectomy S/P carotid endarterectomy RIGHT S/P cholecystectomy S/P lumpectomy of breast RIGHT Family History Son Family history of reaction to anesthesia SLOW TO WAKE Brother Family history of diabetes mellitus Myocardial infarction Sister Family history of diabetes mellitus Mother Family history of diabetes mellitus Myocardial infarction Uncle Family hx of colon cancer X 3 Colorectal cancer Denies family history of Ovarian cancer Prostate cancer Social History Preferred Language: Egyptian Communication Ability: Effective Visual Impairment: No Limitations Hearing Ability: Normal 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 Beliefs That Will Affect Care: None marital status: Current Living Situation: Spouse current occupational status: retired Other Information That Helps Us Care for You: No Feels Safe at Home: Yes Safety Concerns: Feels Safe At This Time Smoking Status: Never smoker Second Hand Exposure: No ; Hx Alcohol Use: No Hx Substance Use: No Childhood Exposure to Second-Hand Smoke: Yes Dental Care, Regularly: Yes Physical Activity Frequency: Does not Exercise Seatbelt Use: always Sunscreen Use: Yes Review of Systems Review of Systems: Constitutional: No fever, sweats or chills Eyes: No diplopia, no worsening or blurred vision ENT: normal hearing, no trouble swallowing, + Left inner ear pain x 1 day Respiratory: No cough, sputum, dyspnea at rest or on exertion Cardiovascular: No chest pain, tightness or palpitations Abdomen: No pain, nausea, vomiting, diarrhea, + hx of mild constipation, last BM today Musculoskeletal: No joint pain, calf pain, swelling Neurologic: As per HPI. Psychiatric: No anxiety or depression Skin: No rash or itch Physical Exam Physical Exam: General: awake, alert, no apparent distress Head: Normocephalic, atraumatic ENT: PERRL, EOMI, no pharyngeal exudate, mucous membranes moist, TM bilaterally pearly zeng, no signs of erythema, fluid level or edema. Chest: Clear to auscultation, on room air, no adventitious breath sounds Cardiac: Regular rate and rhythm, no murmur, no JVD, normal peripheral pulses, good capillary refill Abdominal: NABS x 4 quadrants, soft, nondistended, minimal tenderness in the LLQ to palpation, otherwise no rebound, guarding or tenderness Extremities: Normal inspection, no peripheral edema or erythema, calfs nontender to palpation Psych: Normal mood and affect Neuro: AAO x 3, +Fine resting tremor, strength intact bilaterally and rated 5/5, no motor deficits, speech is clear, occasional stuttering, no difficulty word finding, no peripheral sensory deficits, negative pronator drift, follows commands appropriately. Constitutional: WD/WN, vitals as above Eyes: normal visual murphy by confrontation and + anicteric sclerae Neck: normal visual inspection and trachea midline Respiratory: normal respiratory effort, lungs clear to auscultation Cardiovascular: Rate/Rhythm: regular rate and regular rhythm Gastrointestinal (Abdomen): Inspection/Auscultation: abdomen not distended Percussion/Palpation: abdomen soft; abdomen nontender Musculoskeletal: Head/Neck/Chest: normocephalic and head atraumatic Neg for peripheral LE edema, + pedal pulses Skin: no rashes, warm and dry Neurologic: awake; not confused Speech / Cognition: normal speech Psychiatric: A+Ox3, euthymic affect Motor Behavior: + tremor Lymphatic: Exam as done by Shahana Mcguire DO Results & Data Vital Signs (Past 12 Hours) Vital Signs Temp Pulse Resp BP Pulse Ox 01/25/20 15:52 58 L 25 H 98 01/25/20 15:30 62 20 193/82 H 98 01/25/20 15:20 61 18 203/77 H 98 01/25/20 15:16 63 24 204/107 H 97 01/25/20 15:10 99 H 23 97 01/25/20 15:01 63 23 210/113 H 97 01/25/20 15:00 69 20 97 01/25/20 14:51 65 28 H 221/93 H 98 01/25/20 14:50 66 26 H 99 01/25/20 14:48 90 H 01/25/20 14:28 36.4 C L 71 16 221/80 H 96 Diagnostic Findings XR chest 1V portable CLINICAL HISTORY: 79 years-old Female presenting with stroke alert. TECHNIQUE: Portable upright AP view of the chest was obtained. COMPARISON: 07/04/2019. FINDINGS: Atherosclerosis of the aortic arch. Cardiac silhouette enlarged. Lungs and pleural spaces clear. Degenerative changes of the thoracic spine. Degenerative changes of the shoulders with an anchor noted in the left humeral head. Upper abdomen normal. IMPRESSION: 1. Cardiomegaly. No other convincing evidence of acute cardiopulmonary disease. ACT 112: Negative or not required by law. Electronically signed by: George Conklin M.D. 01/25/2020 3:[address] head/brain wo con CLINICAL HISTORY: 79 years-old Female with Stroke Alert. Acute strokelike symptoms TECHNIQUE: Multiple axial CT images of the head were obtained without contrast. A dose lowering technique was utilized adhering to the principles of ALARA. CT DOSE: 537.48 mGy.cm COMPARISON: Head CT 10/31/2019 FINDINGS: No acute intracranial hemorrhage, midline shift, intracranial mass, hydrocephalus, territorial ischemia or abnormal extra-axial collection. Age- related involutional changes with mild ex vacuo organomegaly. Cerebral vascular calcifications. Senescent calcifications of the bilateral basal ganglia. The calvarium is intact. The paranasal sinuses, mastoid air cells, and middle ear cavities are clear. IMPRESSION: No acute intracranial abnormality. ACT 112: Negative or not required by law. The above report was generated using voice recognition software. It may contain grammatical, syntax or spelling errors. Electronically signed by: Brian Orosco M.D. 01/25/2020 2:44 PM MR angio head wo con CLINICAL HISTORY: 79 years-old Female presenting with hypertension, hyperglycemia, headache, difficulty walking. TECHNIQUE: MR angiography of the head was performed without the use of intravenous contrast using 3-D [id number] technique. 3-D volumetric and/or maximum intensity projection (MIP) images were subsequently reconstructed for review. IV contrast: None. COMPARISON: CTA head from 07/04/2019. FINDINGS: Localizer images: Unremarkable. Anterior circulation: Intracranial portions of the internal carotid arteries patent to the level of the termini. Anterior cerebral arteries patent. Middle cerebral arteries patent. Anterior communicating artery patent. Posterior circulation: Codominant vertebral arteries. Intradural portions of the vertebral arteries patent. Posterior inferior cerebellar arteries patent. Basilar artery patent. Anterior inferior cerebellar arteries poorly visualized. Superior cerebellar arteries patent. Posterior cerebral arteries patent. Po sterior communicating arteries hypoplastic or aplastic. IMPRESSION: 1. No significant stenosis, aneurysm, or focal vessel occlusion. ACT 112: Negative or not required by law. Electronically signed by: George Conklin M.D. 01/25/2020 5:02 PM MR brain wo con CLINICAL HISTORY: 79 years-old Female presenting with stroke symptoms, hypertension, hyperglycemia, headache, difficulty walking. TECHNIQUE: Multisequence, multiplanar MR imaging of the brain was performed without the use of intravenous contrast. IV contrast: None. COMPARISON: Noncontrast CT head from 01/25/2020 and MRI brain from 06/26/2019. FINDINGS: Localizer images: Unremarkable. Bone marrow signal intensity within the calvarium within normal limits. Normal midline sagittal structures. Proportional ventricular and sulcal prominence, likely age-related parenchymal volume loss. No mass effect or midline shift. No restricted diffusion or hemorrhage. Periventricular and subcortical white matter T2/FLAIR hyperintensity, nonspecific but likely indicative of chronic small vessel ischemic change. No extra-axial fluid collection. T2 skull base flow voids preserved. IMPRESSION: 1. Chronic small vessel ischemic change. No acute intracranial abnormality. ACT 112: Negative or not required by law. Electronically signed by: George Conklin M.D. 01/25/2020 5:11 PM ECG Additional Comments: 25-JAN-2020 14:44:27 [facility]-EDSTAT ROUTINE RETRIEVAL Poor data quality, interpretation may be adversely affected Normal sinus rhythm Left ventricular hypertrophy with repolarization abnormality Abnormal ECG When compared with ECG of 31-OCT-2019 15:15, T wave inversion less evident in Lateral leads QT has lengthened 25mm/s 10mm/mV 150Hz 9.0.9 12SL 241 VAN: 3 Unconfirmed Vent. rate 72 BPM MN interval 150 ms QRS duration 76 ms QT/QTc 388/424 ms P-R-T axes 119 -23 56 Code Status & VTE Plan Code Status DNR-discussed with the patient and her at bedside Supervising Physician Co-Signing Physician Notes Pt seen and examined by me. Denies chest pain or SOB. Tolerating PO without issue. States she became nervous today when she was in the grocery and felt p rogressive weakness. She has been having an issue with stuttering the last few weeks and this was worse today also. Pt states her BP meds have been changed recently due to inability to control BP. Home readings 160s-170s systolic. She states this is better than prior to starting any meds, but it never really gets lower than this despite multiple medications and dose adjustments. Agree with HPI/ROS as noted by PA See above for my exam in PE section Agree with plan as outlined above Stroke work up neg thus far, sx possibly related to HTN emergency given BP 202 systolic Working with outpt care to control BP PT/OT PG Care Time/CCT Total # of Minutes Spent Total Time Spent with Patient: Total time spent is greater than 50% in coordination of care (as documented) at patient's floor/unit and/or counseling patient: Coding Level of Care Code 87965 OBS Care - Level 3 Diagnoses Transient ischemic attack G45.9 Chronic cerebral ischemia I67.82 Subdural hematoma S06.5X9A Atrial fibrillation I48.91 Hypertension I10 HLD (hyperlipidemia) E78.5 PAD (peripheral artery disease) I73.9 Diabetes mellitus, type II E11.9 Chronic kidney disease, stage 3 N18.3 Chronic osteoarthritis M19.90 LUZMA (obstructive sleep apnea) G47.33 Vitamin D deficiency E55.9 Hypothyroidism E03.9 Anemia D64.9 DVT prophylaxis Z29.9
--- NOTE | 2020-01-25 16:29 | Electrocardiogram Report ---
Test Reason : Blood Pressure : / mmHG Vent. Rate : 072 BPM Atrial Rate : 072 BPM P-R Int : 150 ms QRS Dur : 076 ms QT Int : 388 ms P-R-T Axes : 119 -23 056 degrees QTc Int : 424 ms Poor data quality, interpretation may be adversely affected Normal sinus rhythm Left ventricular hypertrophy with repolarization abnormality Abnormal ECG When compared with ECG of 31-OCT-2019 15:15, T wave inversion less evident in Lateral leads Confirmed by Rell Evans ([id number]) on 01/25/2020 4:29:17 PM Referred By: Confirmed By:Rell Evans
--- NOTE | 2020-01-25 17:04 | Magnetic Resonance Report ---
MR angio head wo con CLINICAL HISTORY: 79 years-old Female presenting with hypertension, hyperglycemia, headache, difficul ty walking. TECHNIQUE: MR angiography of the head was performed without the use of intravenous contrast using 3-D [id number] technique. 3-D volumetric and/or maximum intensity projection (MIP) images were subse quently reconstructed for review. IV contrast: None. COMPARISON: CTA head from 07/04/2019. FINDINGS: Localizer images: Unremarkable. Anterior circulation: Intracranial portions of the internal carotid arteries patent to the level of t he termini. Anterior cerebral arteries patent. Middle cerebral arteries patent. Anterior communicatin g artery patent. Posterior circulation: Codominant vertebral arteries. Intradural portions of the vertebral arteries p atent. Posterior inferior cerebellar arteries patent. Basilar artery patent. Anterior inferior cerebe llar arteries poorly visualized. Superior cerebellar arteries patent. Posterior cerebral arteries pat ent. Posterior communicating arteries hypoplastic or aplastic. IMPRESSION: 1. No significant stenosis, aneurysm, or focal vessel occlusion. ACT 112: Negative or not required by law. Electronically signed by: George Conklin M.D. 01/25/2020 5:02 PM
--- NOTE | 2020-01-25 17:12 | Magnetic Resonance Report ---
MR brain wo con CLINICAL HISTORY: 79 years-old Female presenting with stroke symptoms, hypertension, hyperglycemia, h eadache, difficulty walking. TECHNIQUE: Multisequence, multiplanar MR imaging of the brain was performed without the use of intrav enous contrast. IV contrast: None. COMPARISON: Noncontrast CT head from 01/25/2020 and MRI brain from 06/26/2019. FINDINGS: Localizer images: Unremarkable. Bone marrow signal intensity within the calvarium within normal limits. Normal midline sagittal structures. Proportional ventricular and sulcal prominence, likely age-relate d parenchymal volume loss. No mass effect or midline shift. No restricted diffusion or hemorrhage. Pe riventricular and subcortical white matter T2/FLAIR hyperintensity, nonspecific but likely indicative of chronic small vessel ischemic change. No extra-axial fluid collection. T2 skull base flow voids preserved. IMPRESSION: 1. Chronic small vessel ischemic change. No acute intracranial abnormality. ACT 112: Negative or not required by law. Electronically signed by: George Conklin M.D. 01/25/2020 5:11 PM
[2020-01-25] MEDS ORDERED: PHARMACIST DISCHARGE MED REC CONSULT PRN (19:43)
[2020-01-25] MEDS ORDERED: GLUCAGON FOR INJ 1 MG VIAL SQ PRN (19:43)
[2020-01-25] MEDS ORDERED: CARBOHYDRATES FOR HYPOGLYCEMIA PO PRN (19:43)
[2020-01-25] MEDS ORDERED: GLUCOSE 40% GEL 15 GM TUBE PO PRN (19:43)
[2020-01-25] MEDS ORDERED: GLUCOSE 10 TABS/TUBE PO PRN (19:43)
[2020-01-25] MEDS ORDERED: DEXTROSE 50% 50 ML SYRINGE IV PRN (19:43)
[2020-01-25] MEDS ORDERED: MULTIVITAMIN TAB PO SCH (21:00)
[2020-01-25] MEDS ORDERED: ASPIRIN 81 MG ECTAB PO SCH (21:00)
[2020-01-25] MEDS ORDERED: INSULIN GLARGINE SOLOSTAR 100 UNITS/ML 3 ML PEN SQ SCH (21:00)
[2020-01-25] MEDS ORDERED: ACETAMINOPHEN 325 MG TAB PO SCH (21:00)
--- NOTE | 2020-01-25 21:01 | Emergency Department Note ---
Entered by Yoon Hernandez acting as a scribe for Kj Gomes MD ED Provider Note CHIEF COMPLAINT: Stroke/CVA HISTORY OF PRESENT ILLNESS: The patient is a 79 year old female who presents to the Emergency Room with complaints of an episode of stroke-like symptoms that started around 1 hour ago at 1330 this afternoon. The patient reports that she has a severe headache that started suddenly at 1330 while she was watching television. She states that she started stuttering and slurring around the same time. The patients notes that the patient stood up and appeared to be have difficulty walking. The patient denies any numbness or tingling but notes that she has a history of essential tremors. She reports that her symptoms have mostly resolved except for a lingering headache. The patient states that she has a history of migraines and that her headache is similar to past episodes. She denies any history of TIA or strokes. She notes that she has a history of atrial fibrillation and that she takes Elliquis daily. She reports that she has a history of HTN and states that she took her medication today as prescribed. She denies any recent flu-like symptoms. Her reports that the patient was at baseline when she woke up this morning. Her states that the patient's condition has improved greatly since arriving to the ED. Pt denies LOC, fevers, chills, diaphoresis, visual changes, neck pain, chest p ain, breathing difficulties, nausea, vomiting, abdominal pain, back pain, melena, hematochezia, urinary symptoms, numbness, weakness, lymphadenopathy, rash, or other complaints. REVIEW OF SYSTEMS: See HPI for pertinent positives and negatives. A total of ten systems were reviewed and were otherwise negative. PMHx/PSHx: CKD Stage 3 Abdominal mass Carotid artery stenosis Chronic osteoarthritis Migraines Osteopenia PAD Sleep apnea Spinal stenosis TIA Diabetes Atrial fibrillation HTN Anemia Chronic cerebral ischemia Subdural hematoma RLS Tremors Chronic Gastritis HLD Hypothyroidism SOCIAL HISTORY: Patient lives at home. She is and retired. PHYSICAL EXAM: GENERAL: Awake, alert, well-appearing, in no distress HENT: Normocephalic, atraumatic. Oropharynx unremarkable. EYES: PERRL. Normal conjunctiva. Sclera non-icteric. NECK: Inspection normal. Non-tender. Supple. No nuchal rigidity. FROM. No masses. RESPIRATORY: Clear to auscultation. No wheezes. No rales. Normal respiratory effort. CARDIAC: Normal rate. Normal rhythm. No murmurs. No rubs. Extremities warm and well perfused. Pulses equal. No JVD. GI: Soft, non-distended. No tenderness to palpation. No rebound or guarding. No masses. RECTAL: Deferred. MUSCULOSKELETAL: Atraumatic. Chest examination reveals no tenderness. The back is symmetrical on inspection without obvious abnormality. There is no CVA tenderness to palpation. No joint edema. LOWER EXTREMITIES: Calves are equal size bilaterally and non-tender. No discoloration. +1 bilateral lower extremity edema. NEURO: Normal sensorium. Slow but normal heel to kang. Normal NAZARIO. No drift. SKIN: No rash or jaundice noted. EMERGENCY DEPARTMENT COURSE: 1435: A stroke alert was called upon arrival to the ED. Patient was taken directly to CT. 1440: The patient was evaluated in room B01, and a complete history and physical examination were performed. 1455: I discussed the patients case with Dr. Kulkarni, [facility] [place], who recommends observation in the hospital for a full stroke work-up. She notes that the patient is not a tPa candidate due to anti-coagulant use. She states that she will not need to evaluate the patient via Telestroke as the patients symptoms have mostly resolved. 1530: Upon reevaluation, the patient is resting comfortably. I discussed laboratory and radiographic results with the patient. She verbalized agreement of the treatment plan. The patient will be evaluated for further management and care. 1549: I discussed the patients case with Joy Patrick PA-C [facility], who will evaluate the patient for further management and care with Dr. Mcguire at the attending physician. MEDICAL DECISION MAKING: Continuous Cardiac Monitoring: An order was placed for continuous cardiac monitoring. The monitor shows a rate of 66 with sinus rhythm. Prior records/ancillary studies reviewed. Nursing notes reviewed and agree them. Additional history obtained from family. The patient's history was concerning for slurred speech and weakness. Differential diagnosis: Etiologies such as CVA, TIA, SAH, metabolic, infection, hypo/hyperglycemia, electrolyte abnormalities, cardiac sources, intracerebral event, toxicologic, neurologic, as well as others were entertained. Physical examination: As above. Nonfocal. Slurred speech had resolved. ER treatment provided: IV Lock Saline hydration IV Tylenol IV hydralazine On reassessment the patient felt better. Clinically the patient looks well. Diagnostics interpretation by me: ECG: No acute ischemia. Sinus rhythm. The labs revealed an unremarkable CBC and chemistry panel. Imaging studies: Chest x-ray negative for acute process CT head was negative for acute process. MR imaging ordered for inpatient management The patient had strokelike symptoms. She had a headache. She is anticoagulated. She is not a TPA candidate. A stroke alert was initiated. I d id discuss the case with Sybil tele-stroke. Inpatient work-up was recommended. TPA was not recommended. Consultation: A consultation was placed with the hospitalist. The case was discussed and di agnostics were reviewed. The patient was evaluated in the ER for further treatment. IMPRESSION: Stroke-like symptoms Slurred speech Headache, anticoagulated Leukocytosis PLAN: Being evaluated by a hospitalist The scribe's documentation has been prepared under my direction and personally reviewed by me in its entirety. I confirm that the note above accurately reflects all work, treatment, procedures, and medical decision making performed by me. Impression & Plan Stroke-like symptoms, Slurred speech, Headache, Anticoagulated, Leukocytosis Past Med/Surg History Medical History Anxiety Atrial fibrillation (Chronic) Benign essential tremor Bowel perforation Chronic gastritis Chronic kidney disease, stage 3 (Chronic) Chronic osteoarthritis (Chronic) Depression Diabetes mellitus, type II (Chronic) Diverticular disease HX DIVERTICULITIS PER RECORDS GERD (gastroesophageal reflux disease) Hiatal hernia History of blood transfusion POST-OP ROBE History of palpitations HLD (hyperlipidemia) Hx of intestinal obstruction 50 YEARS AGO PER RECORDS Hypertension (Chronic) Hypothyroidism (Chronic) 2/2 thyroidectomy IBS (irritable bowel syndrome) Macular degeneration Migraine headache (Chronic) Obesity LUZMA (obstructive sleep apnea) NO DEVICE Osteoarthritis Osteopenia (Chronic) PAD (peripheral artery disease) (Chronic) Paroxysmal atrial fibrillation (Resolved) CURRENTLY AND SCHEDULED FOR CARDIOVERSION RLS (restless legs syndrome) RLS (restless legs syndrome) Sleep apnea (Chronic) Spinal stenosis (Chronic) Transient ischemic attack (Acute) Transient ischemic attack (TIA) 03/2018 Vitamin D deficiency (Chronic) Surgical History Family history of reaction to anesthesia SON-HARD TIME WAKING UP. H/O total thyroidectomy H/O: hysterectomy History of back surgery LUMBAR DISCECTOMY History of blepharoplasty History of bowel resection History of cardiac cath X2 TOTAL (10+ YEARS AGO)= NO STENTS History of herniorrhaphy VENTRAL HERNIA History of inguinal hernia repair X3 (CHILD) History of laryngoscopy REMOVAL OF POLYPS History of repair of hiatal hernia 02/2019 History of repair of rotator cuff RIGHT X3, LEFT X 1 History of tubal ligation Hx of hand surgery LUMP REMOVED FROM RIGHT HAND Previous section X3 S/P appendectomy S/P carotid endarterectomy RIGHT S/P cholecystectomy S/P lumpectomy of breast RIGHT Family History Son Family history of reaction to anesthesia SLOW TO WAKE Brother Family history of diabetes mellitus Myocardial infarction Sister Family history of diabetes mellitus Mother Family history of diabetes mellitus Myocardial infarction Uncle Family hx of colon cancer X 3 Colorectal cancer Denies family history of Ovarian cancer Prostate cancer Social History Preferred Language: Croatian Communication Ability: Effective Visual Impairment: No Limitations Hearing Ability: Normal 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4 C L Temperature Source Oral Pulse Rate 71 66 Pulse Rate from SpO2 Sensor 66 Respiratory Rate 16 90 H 26 H Respiratory Effort / Characteristics Non-Labored Respiratory Depth Normal Blood Pressure 221/80 H Blood Pressure Mean 127 Pulse Oximetry 96 99 Oxygen Delivery Method Room Air Room Air Room Air Sepsis Recent Fever Within 48 Hours No Sepsis New/Unexplained Change in Mental Status No Sepsis Action Taken by Nursing No Action Required 01/25/20 14:51 01/25/20 15:00 01/25/20 15:01 Temperature Temperature Source Pulse Rate 65 69 63 Pulse Rate from SpO2 Sensor 65 65 63 Respiratory Rate 28 H 20 23 Respiratory Effort / Characteristics Respiratory Depth Blood Pressure 221/93 H 210/113 H Blood Pressure Mean 152 161 Pulse Oximetry 98 97 97 Oxygen Delivery Method Room Air Room Air Room Air Sepsis Recent Fever Within 48 Hours Sepsis New/Unexplained Change in Mental Status Sepsis Action Taken by Nursing 01/25/20 15:10 01/25/20 15:16 01/25/20 15:20 Temperature Temperature Source Pulse Rate 99 H 63 61 Pulse Rate from SpO2 Sensor 65 62 61 Respiratory Rate 23 24 18 Respiratory Effort / Characteristics Respiratory Depth Blood Pressure 204/107 H 203/77 H Blood Pressure Mean 163 175 Pulse Oximetry 97 97 98 Oxygen Delivery Method Room Air Room Air Room Air Sepsis Recent Fever Within 48 Hours Sepsis New/Unexplained Change in Mental Status Sepsis Action Taken by Nursing 01/25/20 15:30 01/25/20 15:52 01/25/20 15:56 Temperature Temperature Source Pulse Rate 62 58 L 58 L Pulse Rate from SpO2 Sensor 62 58 L 58 L Respiratory Rate 20 25 H 20 Respiratory Effort / Characteristics Respiratory Depth Blood Pressure 193/82 H 217/66 H Blood Pressure Mean 150 113 Pulse Oximetry 98 98 98 Oxygen Delivery Method Room Air Room Air Sepsis Recent Fever Within 48 Hours Sepsis New/Unexplained Change in Mental Status Sepsis Action Taken by Nursing 01/25/20 16:00 Temperature Temperature Source Pulse Rate 58 L Pulse Rate from SpO2 Sensor 58 L Respiratory Rate 19 Respiratory Effort / Characteristics Respiratory Depth Blood Pressure 202/82 H Blood Pressure Mean 155 Pulse Oximetry 97 Oxygen Delivery Method Sepsis Recent Fever Within 48 Hours Sepsis New/Unexplained Change in Mental Status Sepsis Action Taken by Snf Medications Current Medication List: was personally reviewed by me Laboratory Data Attestation: I reviewed the patient's lab results. Result diagrams: 01/25/20 14:41 01/25/20 14:41 Lab Results 01/25/20 01/25/20 01/25/20 Range/Units 14:41 14:41 14:41 WBC 12.98 H (4.8-10.8) K/uL RBC 3.70 L (4.2-5.4) M/uL Hgb 11.6 L (12.0-16.0) g/dL POC Hgb (12.0-16.0) g/dl Hct 35.2 L (37-47) % POC Hct (37-47) % MCV 95.1 (80-100) fL MCH 31.4 (25-34) pg MCHC 33.0 (32-36) g/dL RDW Std Deviation 46.3 (36.4-46.3) fL RDW Coeff of Michael 13.4 (11.5-14.5) % Plt Count 297 (130-400) K/uL MPV 10.6 H (7.4-10.4) fL PT 10.8 (9.0-12.0) Seconds INR 1.0 (0.9-1.1) APTT 30.9 (21.0-31.0) Seconds PTT Ratio 1.1 POC Sodium (135-144) mmol/L Sodium 136 (136-145) mmol/L POC Potassium (3.3-5.0) mmol/L Potassium 4.4 (3.5-5.1) mmol/L POC Chloride (101-112) mmol/L Chloride 103 (98-107) mmol/L Carbon Dioxide 24 (21-32) mmol/L POC Total CO2 (24-31) mEq/l Anion Gap 9.0 (3-11) POC Anion Gap (16-25) mmol/L POC BUN (7-18) mg/dl BUN 35 H (7-18) mg/dl Creatinine 1.69 H (0.6-1.2) mg/dl POC Creatinine (0.6-1.3) mg/dl Est Cr Clr Drug Dosing 24.2 ml/min Est GFR ( Amer) 32.7 Est GFR (Non-Af Amer) 28.2 BUN/Creatinine Ratio 20.9 H (10-20) Glucose 250 H (70-99) mg/dl POC Glucose (70-99) mg/dl POC Glucose (other) (70-99) mg/dl Calcium 8.6 (8.5-10.1) mg/dl POC Ioniz Calcium Jeanette (1.12-1.32) mmol/l Magnesium 1.8 (1.8-2.4) mg/dl Total Bilirubin 0.2 (0.2-1) mg/dl AST 16 (15-37) U/L ALT 23 (12-78) U/L Alkaline Phosphatase 100 (45-117) U/L Total Protein 8.2 (6.4-8.2) gm/dl Albumin 3.6 (3.4-5.0) gm/dl Globulin 4.6 H (2.5-4.0) gm/dl Albumin/Globulin Ratio 0.8 L (0.9-2) 01/25/20 01/25/20 Range/Units 14:45 14:49 WBC (4.8-10.8) K/uL RBC (4.2-5.4) M/uL Hgb (12.0-16.0) g/dL POC Hgb 11.6 L (12.0-16.0) g/dl Hct (37-47) % POC Hct 34 L (37-47) % MCV (80-100) fL MCH (25-34) pg MCHC (32-36) g/dL RDW Std Deviation (36.4-46.3) fL RDW Coeff of Michael (11.5-14.5) % Plt Count (130-400) K/uL MPV (7.4-10.4) fL PT (9.0-12.0) Seconds INR (0.9-1.1) APTT (21.0-31.0) Seconds PTT Ratio POC Sodium 138 (135-144) mmol/L Sodium (136-145) mmol/L POC Potassium 4.5 (3.3-5.0) mmol/L Potassium (3.5-5.1) mmol/L POC Chloride 102 (101-112) mmol/L Chloride (98-107) mmol/L Carbon Dioxide (21-32) mmol/L POC Total CO2 25 (24-31) mEq/l Anion Gap (3-11) POC Anion Gap 17.0 (16-25) mmol/L POC BUN 33 H (7-18) mg/dl BUN (7-18) mg/dl Creatinine (0.6-1.2) mg/dl POC Creatinine 1.7 H (0.6-1.3) mg/dl Est Cr Clr Drug Dosing ml/min Est GFR ( Amer) Est GFR (Non-Af Amer) BUN/Creatinine Ratio (10-20) Glucose (70-99) mg/dl POC Glucose 237 H (70-99) mg/dl POC Glucose (other) 248 H (70-99) mg/dl Calcium (8.5-10.1) mg/dl POC Ioniz Calcium Jeanette 1.06 L (1.12-1.32) mmol/l Magnesium (1.8-2.4) mg/dl Total Bilirubin (0.2-1) mg/dl AST (15-37) U/L ALT (12-78) U/L Alkaline Phosphatase (45-117) U/L Total Protein (6.4-8.2) gm/dl Albumin (3.4-5.0) gm/dl Globulin (2.5-4.0) gm/dl Albumin/Globulin Ratio (0.9-2) Administered Medications Sodium Chloride (Nss 1000ml) 1,000 mls @ 80 mls/hr IV .[id number] DEVORAH Stop: 02/24/20 14:59 Last Admin: 01/25/20 15:07 Dose: 80 mls/hr Documented by: [id number] Discontinued Medications Hydralazine HCl (Hydralazine Hcl) 5 mg IV NOW ONE Stop: 01/25/20 15:00 Last Admin: 01/25/20 15:06 Dose: 5 mg Documented by: [id number] Acetaminophen (Ofirmev) 1,000 mg in 100 mls @ 400 mls/hr IV NOW STA Stop: 01/25/20 15:13 Last Infusion: 01/25/20 15:24 Dose: 0 mls/hr Documented by: [id number] Admin: 01/25/20 15:06 Dose: 400 mls/hr Documented by: [id number] Imaging Data Radiologist's Impression: Radiology results as stated below per my review and the radiologist's interpretation: CT head/brain wo con CLINICAL HISTORY: 79 years-old Female with Stroke Alert. Acute strokelike symptoms TECHNIQUE: Multiple axial CT images of the head were obtained without contrast. A dose lowering technique was utilized adhering to the principles of ALARA. CT DOSE: 537.48 mGy.cm COMPARISON: Head CT 10/31/2019 FINDINGS: No acute intracranial hemorrhage, midline shift, intracranial mass, hydrocephalus, territorial ischemia or abnormal extra-axial collection. Age- related involutional changes with mild ex vacuo organomegaly. Cerebral vascular calcifications. Senescent calcifications of the bilateral basal ganglia. The calvarium is intact. The paranasal sinuses, mastoid air cells, and middle ear cavities are clear. IMPRESSION: No acute intracranial abnormality. ACT 112: Negative or not required by law. The above report was generated using voice recognition software. It may contain grammatical, syntax or spelling errors. Electronically signed by: Brian Orosco M.D. 01/25/2020 2:44 PM XR chest 1V portable CLINICAL HISTORY: 79 years-old Female presenting with stroke alert. TECHNIQUE: Portable upright AP view of the chest was obtained. COMPARISON: 07/04/2019. FINDINGS: Atherosclerosis of the aortic arch. Cardiac silhouette enlarged. Lungs and pleural spaces clear. Degenerative changes of the thoracic spine. Degenerative changes of the shoulders with an anchor noted in the left humeral head. Upper abdomen normal. IMPRESSION: 1. Cardiomegaly. No other convincing evidence of acute cardiopulmonary disease. ACT 112: Negative or not required by law. Electronically signed by: George Conklin M.D. 01/25/2020 3:17 PM MR brain wo con CLINICAL HISTORY: 79 years-old Female presenting with stroke symptoms, hypertension, hyperglycemia, headache, difficulty walking. TECHNIQUE: Multisequence, multiplanar MR imaging of the brain was performed without the use of intravenous contrast. IV contrast: None. COMPARISON: Noncontrast CT head from 01/25/2020 and MRI brain from 06/26/2019. FINDINGS: Localizer images: Unremarkable. Bone marrow signal intensity within the calvarium within normal limits. Normal midline sagittal structures. Proportional ventricular and sulcal prominence, likely age-related parenchymal volume loss. No mass effect or midline shift. No restricted diffusion or hemorrhage. Periventricular and subcortical white matter T2/FLAIR hyperintensity, nonspecific but likely indicative of chronic small vessel ischemic change. No extra-axial fluid collection. T2 skull base flow voids preserved. IMPRESSION: 1. Chronic small vessel ischemic change. No acute intracranial abnormality. ACT 112: Negative or not required by law. Electronically signed by: George Conklin M.D. 01/25/2020 5:11 PM MR angio head wo con CLINICAL HISTORY: 79 years-old Female presenting with hypertension, hyperglycemia, headache, difficulty walking. TECHNIQUE: MR angiography of the head was performed without the use of intravenous contrast using 3-D [id number] technique. 3-D volumetric and/or maximum intensity projection (MIP) images were subsequently reconstructed for review. IV contrast: None. COMPARISON: CTA head from 07/04/2019. FINDINGS: Localizer images: Unremarkable. Anterior circulation: Intracranial portions of the internal carotid arteries patent to the level of the termini. Anterior cerebral arteries patent. Middle cerebral arteries patent. Anterior communicating artery patent. Posterior circulation: Codominant vertebral arteries. Intradural portions of the vertebral arteries patent. Posterior inferior cerebellar arteries patent. Basilar artery patent. Anterior inferior cerebellar arteries poorly visualized. Superior cerebellar arteries patent. Posterior cerebral arteries patent. Posterior communicating arteries hypoplastic or aplastic. IMPRESSION: 1. No significant stenosis, aneurysm, or focal vessel occlusion. ACT 112: Negative or not required by law. Electronically signed by: George Conklin M.D. 01/25/2020 5:02 PM ECG Data Attestation: I personally reviewed and interpreted this ECG as follows: Indication: + weakness Rate (beats per minute): 72 Rhythm: normal sinus ECG Intervals/blocks: + Normal QRS ECG Harrison: + Normal ECG ST segments: no ST depression and no ST elevation ECG Findings: + LVH; no PACs and no PVCs Blood Pressure Blood Pressure Findings: Elevated blood pressure Blood Pressure Disposition: further management by hospitalist Discharge Plan Visit Data *Final* Discharge Date/Time: 01/25/20 19:04 Chief Complaint: Stroke/CVA Symptoms Stated Complaint: TROUBLE WALKING, SLURRED SPEECH ED Provider: Kj Gomes Discharge Problem: Stroke-like symptoms, Slurred speech, Headache, Anticoagulated, Leukocytosis Patient Disposition: Admitted As Inpatient Discharge Instructions Interventions: ED Discharge Assessment Last Done: 01/25/20 19:04 The scribe's documentation has been prepared under my direction and personally reviewed by me in its entirety. I confirm that the note above accurately re flects all work, treatment, procedures, and medical decision making performed by me.
[2020-01-25] MEDS: APIXABAN 2.5 MG TAB PO SCH (21:13)
[2020-01-25] MEDS: METOPROLOL TARTRATE 25 MG TAB PO SCH (21:14)
[2020-01-25] MEDS: INSULIN ASPART 100 UNITS/ML 3 ML PEN SC SCH (21:16)
[2020-01-25] MEDS: dilTIAZem ER 120 MG CAPCR PO SCH (21:17)
[2020-01-26] MEDS: SODIUM CHLORIDE 0.9% 1000ML 1,000 ML IV SCH (05:49)
[2020-01-26 06:18] LABS: Estimated Average Glucose 192 mg/dl; Hemoglobin A1C 8.3 % (4.5-5.6)
[2020-01-26 06:38] LABS: Basophils # (auto) 0.03 K/uL (0-0.2); Basophils % (auto) 0.3 %; Eosinophils % (auto) 1.9 %; Hematocrit (blood only) 34.1 % (37-47); Hemoglobin 11.2 g/dL (12.0-16.0); Immature Granulocytes # (auto) 0.03 K/uL (0.00-0.02); Immature Granulocytes % (auto) 0.3 %; Lymphocytes # (auto) 2.17 K/uL (1.2-3.4); Lymphocytes % (auto) 20.5 %; Mean Corpuscular Hemoglobin 31.2 pg (25-34); Mean Corpuscular Hgb Conc 32.8 g/dL (32-36); Mean Platelet Volume 10.8 fL (7.4-10.4); Monocytes # (auto) 0.66 K/uL (0.11-0.59); Monocytes % (auto) 6.2 %; Neutrophils % (auto) 70.8 %; Platelet Count 267 K/uL (130-400); RDW Coefficient of Variation 13.6 % (11.5-14.5); RDW Standard Deviation 47.1 fL (36.4-46.3); Red Blood Count 3.59 M/uL (4.2-5.4); White Blood Count 10.59 K/uL (4.8-10.8)
[2020-01-26 07:17] LABS: BUN Creatinine Ratio 20.8 (10-20); Calcium 8.8 mg/dl (8.5-10.1); Est GFR (Non-African American) 34.5; Potassium 4.3 mmol/L (3.5-5.1)
[2020-01-26] MEDS: INSULIN ASPART 100 UNITS/ML 3 ML PEN SC SCH ×3 (08:34→17:12)
[2020-01-26] MEDS: METOPROLOL TARTRATE 25 MG TAB PO SCH (08:41)
[2020-01-26] MEDS: dilTIAZem ER 120 MG CAPCR PO SCH (08:41)
[2020-01-26] MEDS: APIXABAN 2.5 MG TAB PO SCH (08:41)
[2020-01-26] MEDS ORDERED: ISOSORBIDE MONO EXTENDED REL 60 MG TABCR PO SCH (09:00)
[2020-01-26] MEDS ORDERED: ATORVASTATIN 20 MG TAB PO SCH (09:00)
[2020-01-26] MEDS ORDERED: ISOSORBIDE MONO EXTENDED REL 30 MG TABCR PO SCH (09:00)
[2020-01-26] MEDS ORDERED: DULOXETINE HCL 60 MG CAP PO SCH (09:00)
[2020-01-26] MEDS ORDERED: ASCORBIC ACID 500 MG TAB PO SCH (09:00)
[2020-01-26] MEDS ORDERED: PANTOprazole 40 MG TAB PO SCH (09:00)
[2020-01-26] MEDS ORDERED: CHOLECALCIFEROL 1,000 UNITS 25 MCG TAB PO SCH (09:00)
[2020-01-26] MEDS ORDERED: LEVOTHYROXINE SODIUM 88 MCG TABLET PO SCH (09:00)
[2020-01-26] MEDS ORDERED: ISOSORBIDE MONO EXTENDED REL 30 MG TABCR PO ONE (12:06)
[2020-01-26] MEDS ORDERED: LOSARTAN/HCTZ 50/12.5MG TAB PO SCH (12:45)
[2020-01-26] MEDS ORDERED: ACETAMINOPHEN 325 MG TAB PO STA (15:11)
[2020-01-26] MEDS ORDERED: VALSARTAN 80 MG TAB PO ONE (17:30)
[2020-01-26] MEDS ORDERED: STROKE PATIENT DISCHARGE STA (17:42)
--- NOTE | 2020-01-26 18:04 | XCELERA ---
[id number] \\[email or web address]\[id number]
--- NOTE | 2020-01-26 18:20 | Neurology Consultation ---
Date of Consultation January 26, 2020 Assessment & Plan (1) Chronic kidney disease, stage 3: (2) Spinal stenosis: (3) Tremor: (4) LUZMA (obstructive sleep apnea): (5) Transient ischemic attack: Margaret Breaux is an 79 yo woman w/ PMH of HTN, HLD, DM, anemia, Afib on eliquis, CAD, h/o SDH, CKDIII, RLS, chronic fine resting tremor, chronic gastritis, LUZMA, hypothyroidism, spinal stenosis and vitamin D deficiency who p/t [facility] with a transient episode of worsening gait and leg tremulousness. # Transient gait abnormality/?TIA: transient worsening of chronic problem/known multifactorial gait abnormality. No stroke seen on imaging, would not localize to a specific lesion to explain bilateral gait disturbance. She did have BLE mild weakness on exam and was unsteady walking around which she reports is her baseline. - recommend outpatient PT/gait training to help prevent falls - advised her to use walker as needed to get around safely # Chronic tremor: had noticeable negative myoclonus on exam, likely 2/2 CKD. This has been a chronic issue for her. Discussed that benzos can help if severe but would not recommend to someone in her age group given Beers criteria. # Uncontrolled HTN: on multiple medications. Would recommend an outpatient sleep study to ensure that she has a proper CPAP or other device as this can worsen HTN. Defer to PCP for medication management (this is currently her biggest stroke risk factor). # Uncontrolled DM: A1c 8.3. Needs to work with PCP to get A1c <7 for stroke prevention. Thank you for this interesting consult. Plan of care discussed with primary team. Please call or text with questions. History of Present Illness Attending Physician: Jimy Ortega History of Present Illness Margaret Breaux is an 79 yo woman w/ PMH of HTN, HLD, DM, anemia, Afib on eliquis, CAD, h/o SDH, CKDIII, RLS, chronic fine resting tremor, chronic gastritis, LUZMA, hypothyroidism, spinal stenosis and vitamin D deficiency who p/t [facility] with a transient episode of worsening gait and leg tremulousness. She reports that she was in her normal state of health until yesterday morning when she was walking around and noted acute onset of tremulousness in her legs that felt like her legs were shaking and that she was going to fall. caught her before she fell to the ground and she presented to the emergency for further evaluation. On asking her about her history, she reports that she has longstanding tremor in her hands (noticeable myoclonus likely from CKD), as well as longstanding gait dysfunction from multiple reasons. She reports that she has had similar episodes of this in the past but none quite as severe as this one. Reports that she was previously on valium for the tremors/tremulousness and was asking if she could have that again. In the ED, she was afebrile, blood pressure 221/80, heart rate 71, respiratory rate 16, satting 96% on room air. Labs notable for WBC 12.9, hemoglobin 11.6, platelets 297, INR 1.0, BUN 35, creatinine 1.6, glucose 174, TSH within normal, LDL 49, A1c 8.3. Independent review of CT head shows no hemorrhage or hypodensity, mild generalized atrophy with ex vacuo dilation. Chest x-ray shows cardiomegaly but no signs of infection. Independent review of MRI brain shows no acute or chronic infarct, moderate small vessel disease, mild generalized atrophy. Stroke work-up included echo which showed EF of 85 to 60%, moderate LVH, LV borderline dilated, grade 1 diastolic dysfunction, right ventricle mildly dilated, moderate right ventricular hypertrophy, moderate aortic valve sclerosis without stenosis, moderate MR, moderately dilated LA, concern for possible mitral vegetation. Allergies Allergy/AdvReac Type Severity Reaction Status Date / Time adhesive Allergy Mild red/blistered Verified 01/24/20 11:15 skin latex Allergy Mild CONTACT Verified 01/24/20 11:15 DERMATITIS carvedilol Allergy Unknown pt unsure, Verified 01/24/20 11:15 listed prior acetaminophen [From Percocet] Allergy Unknown Verified 01/24/20 11:15 gabapentin Allergy Unknown Verified 01/24/20 11:15 ranitidine [From Zantac] Allergy Unknown Verified 01/24/20 11:15 omeprazole AdvReac Intermediate HALLUCINATI Verified 01/24/20 11:15 ONS oxycodone AdvReac Intermediate itching Verified 01/24/20 11:15 phenobarbital AdvReac Intermediate HALLUCINATI Verified 01/24/20 11:15 ONS cephalexin AdvReac Mild DIARRHEA Verified 01/24/20 11:15 fentanyl AdvReac Mild altered Verified 01/24/20 11:15 mental status levofloxacin AdvReac Mild DIARRHEA Verified 01/24/20 11:15 meperidine AdvReac Mild HEADACHES Verified 01/24/20 11:15 metformin AdvReac Mild DIARRHEA Verified 01/24/20 11:15 Sulfa (Sulfonamide AdvReac Mild DIARRHEA Verified 01/24/20 11:15 Antibiotics) fluoxetine AdvReac Unknown Unknown Verified 01/24/20 11:15 Home Medications Home Medications Medication Instructions Recorded Confirmed Type aspirin [Aspirin Low Dose] 81 mg PO HS 07/21/18 01/25/20 History ascorbic acid (vitamin C) [Vitamin 500 mg PO QAM 02/23/19 01/25/20 History C] glimepiride 2 mg tablet 2 mg PO BID #180 tab 04/26/19 01/25/20 Rx cyclosporine 0.05 % eye drops in a 1 drp OPB BID ea 07/03/19 01/25/20 History dropperette acetaminophen 325 mg tablet 650 mg PO HS tab 07/20/19 01/25/20 History cholecalciferol (vitamin D3) 25 1,000 units PO QAM cap 07/20/19 01/25/20 History mcg (1,000 unit) capsule multivitamin 1 cap PO QPM cap 07/21/19 01/25/20 History blood sugar diagnostic #100 ea 08/03/19 01/24/20 Rx lancets 33 gauge #100 ea 08/03/19 01/24/20 Rx duloxetine 60 mg capsule,delayed 60 mg PO QAM #90 cap 08/09/19 01/25/20 Rx release rabeprazole 20 mg tablet,delayed 20 mg PO QAM #180 tab 08/25/19 01/25/20 Rx release losartan 100 1 tab PO DAILY #90 tab 11/29/19 01/25/20 Rx mg-hydrochlorothiazide 25 mg tablet atorvastatin 20 mg tablet 20 mg PO QAM #90 tab 12/05/19 01/25/20 Rx diltiazem HCl 120 mg capsule,24 120 mg PO BID #180 cap 12/08/19 01/25/20 Rx hr,extended release levothyroxine 88 mcg tablet 88 mcg PO DAILY #90 tab 12/08/19 01/25/20 Rx apixaban 2.5 mg tablet 2.5 mg PO BID #60 tab 01/10/20 01/25/20 Rx digoxin 125 mcg (0.125 mg) tablet 125 mcg PO 3XWK tab 01/11/20 01/25/20 History pen needle, diabetic 33 gauge x #100 ea 01/13/20 01/24/20 Rx " insulin glargine 100 unit/mL (3 40 units SQ QPM #15 ml 01/18/20 01/25/20 Rx mL) subcutaneous pen valacyclovir 1 gram tablet 1,000 mg PO DAILY PRN #30 tab 01/24/20 01/25/20 Rx isosorbide mononitrate 30 mg PO QAM 01/25/20 01/25/20 History isosorbide mononitrate 60 mg PO QAM 01/25/20 01/25/20 History metoprolol tartrate 125 mg PO BID 01/25/20 01/25/20 History Patient History Medical History Anxiety Atrial fibrillation (Chronic) Benign essential tremor Bowel perforation Chronic gastritis Chronic kidney disease, stage 3 (Chronic) Chronic osteoarthritis (Chronic) Depression Diabetes mellitus, type II (Chronic) Diverticular disease HX DIVERTICULITIS PER RECORDS GERD (gastroesophageal reflux disease) Hiatal hernia History of blood transfusion POST-OP ROBE History of palpitations HLD (hyperlipidemia) Hx of intestinal obstruction 50 YEARS AGO PER RECORDS Hypertension (Chronic) Hypothyroidism (Chronic) 2/2 thyroidectomy IBS (irritable bowel syndrome) Macular degeneration Migraine headache (Chronic) Obesity LUZMA (obstructive sleep apnea) NO DEVICE Osteoarthritis Osteopenia (Chronic) PAD (peripheral artery disease) (Chronic) Paroxysmal atrial fibrillation (Resolved) CURRENTLY AND SCHEDULED FOR CARDIOVERSION RLS (restless legs syndrome) RLS (restless legs syndrome) Sleep apnea (Chronic) Spinal stenosis (Chronic) Transient ischemic attack (Acute) Transient ischemic attack (TIA) 03/2018 Vitamin D deficiency (Chronic) Surgical History Family history of reaction to anesthesia SON-HARD TIME WAKING UP. H/O total thyroidectomy H/O: hysterectomy History of back surgery LUMBAR DISCECTOMY History of blepharoplasty History of bowel resection History of cardiac cath X2 TOTAL (10+ YEARS AGO)= NO STENTS History of herniorrhaphy VENTRAL HERNIA History of inguinal hernia repair X3 (CHILD) History of laryngoscopy REMOVAL OF POLYPS History of repair of hiatal hernia 02/2019 History of repair of rotator cuff RIGHT X3, LEFT X 1 History of tubal ligation Hx of hand surgery LUMP REMOVED FROM RIGHT HAND Previous section X3 S/P appendectomy S/P carotid endarterectomy RIGHT S/P cholecystectomy S/P lumpectomy of breast RIGHT Family History Son Family history of reaction to anesthesia SLOW TO WAKE Brother Family history of diabetes mellitus Myocardial infarction Sister Family history of diabetes mellitus Mother Family history of diabetes mellitus Myocardial infarction Uncle Family hx of colon cancer X 3 Colorectal cancer Denies family history of Ovarian cancer Prostate cancer Social History Preferred Language: Czech Communication Ability: Effective Visual Impairment: No Limitations Hearing Ability: Normal Garnett Fixer Required: No Beliefs That Will Affect Care: None marital status: Current Living Situation: Spouse current occupational status: retired Feels Safe at Home: Yes Smoking Status: Never smoker Second Hand Exposure: No ; Hx Alcohol Use: No Hx Substance Use: No Childhood Exposure to Second-Hand Smoke: Yes Dental Care, Regularly: Yes Physical Activity Frequency: Does not Exercise Seatbelt Use: always Sunscreen Use: Yes Review of Systems Review of Systems: 14 point review of systems completed and negative except as in HPI. Physical Exam Physical Exam: General Exam: GEN: NAD, sitting in bed. HEENT: No conjunctival injection, no rhinorrhea. CV: RRR, no peripheral edema PULM: Nonlabored respirations on room air. Neuro Exam: MS: Awake and Alert. Oriented to person, place, not date. Speech fluent and appropriate without dysarthria or paraphasic errors, +stuttering. Language intact including naming, comprehension, repetition. Cognition and memory grossly intact. Attention intact. No neglect. CN: Visual murphy full. No extinction to double simultaneous stimuli. No optic disc edema on fundoscopic exam. PERRLA OU. EOMI without nystagmus. Facial sensation intact to LT. Facial muscles full and symmetric. Hearing intact to conversation. Uvula midline with symmetric palatal elevation. Shoulder shrug normal. Tongue midline. MOTOR: Normal bulk and tone. No pronator drift. BUE strength 5/5 at deltoids, biceps, triceps, wrist flexors and extensors, and hand grasp bilaterally. BLE strength 5-/5 at iliopsoas, hamstrings, quadriceps, tibialis anterior, and gastrocnemius bilaterally. REFLEXES: 1+ at biceps, triceps, brachioradialis, trace patella and absent Achilles bilaterally. Flexor plantar responses bilaterally. SENSORY: Intact to LT without extinction to double simultaneous stimuli. Vibration and temperature intact throughout. COORDINATION: No dysmetria or ataxia on [id number] bilaterally. Normal Jayla bilaterally. GAIT: Unsteady gait with normal arm swing. Positive Romberg. Results & Data Vital Signs (Past 12 Hours) Vital Signs Temp Pulse Pulse Resp BP BP Pulse Ox 01/26/20 17:48 36.5 C 63 18 195/72 H 171/73 H 96 01/26/20 17:00 56 L 01/26/20 15:00 36.5 C 63 18 171/73 H 96 01/26/20 12:00 36.7 C 85 18 191/72 H 96 01/26/20 10:06 65 195/72 H 193/70 H 01/26/20 07:16 70 01/26/20 07:00 36.7 C 71 18 203/84 H 208/64 H 95 PG Care Time/CCT Total # of Minutes Spent Total Time Spent with Patient: Total time spent is greater than 50% in coordination of care (as documented) at patient's floor/unit and/or counseling patient: Coding Level of Care Code 85241 Initial Inpt Care Lvl 3 Diagnoses Chronic kidney disease, stage 3 N18.3 Spinal stenosis M48.00 Tremor R25.1 LUZMA (obstructive sleep apnea) G47.33 Transient ischemic attack G45.9
[2020-01-27] MEDS ORDERED: ISOSORBIDE MONO EXTENDED REL 30 MG TABCR PO SCH (09:00)
[2020-01-27] MEDS ORDERED: DIGOXIN 0.125 MG TAB PO SCH (16:00)
--- NOTE | 2020-01-31 16:42 | Discharge Summary ---
Date of Service January 26, 2020 Admission HPI Per Admitting Provider This is a 79 yo F with PMhx of CAD, atrial fibrillation on Eliquis, HTN, HLD, DM type II, anemia, history of CVA and subdural hematoma in January 2019, CKD stage III, restless leg syndrome, chronic fine resting tremor, chronic gastritis, LUZMA, hypothyroidism, spinal stenosis, vitamin D deficiency who presents with acute onset of difficulty walking and weakness. Patient's is at bedside. Patient and her were out shopping this morning, picked up lunch and went home. During the time out she noticed she had progressive R sided leg weakness where it was difficult for her to get into the car. When she was in her living room, she began having difficulty walking and was leaning to the left with leg weakness, and almost fell but her caught her. No trauma or LOC. She admits to feeling lightheaded prior to the fall and had gotten up from a sitting position. She reports 3 weeks of some stuttered speech, not slurred, and thinks that was a little worse this morning. All her sx have since resolved since being in the ER. Principal Diagnosis transient exacerbation of chronic gait abnormalities Discharge Exam General: awake, alert, no apparent distress Head: Normocephalic, atraumatic ENT: PERRL, EOMI, no pharyngeal exudate, mucous membranes moist, TM bilaterally pearly zeng, no signs of erythema, fluid level or edema. Chest: Clear to auscultation, on room air, no adventitious breath sounds Cardiac: Regular rate and rhythm, no murmur, no JVD, normal peripheral pulses, good capillary refill Abdominal: NABS x 4 quadrants, soft, nondistended, minimal tenderness in the LLQ to palpation, otherwise no rebound, guarding or tenderness Extremities: Normal inspection, no peripheral edema or erythema, calfs nontender to palpation Psych: Normal mood and affect Neuro: AAO x 3, +Fine resting tremor, strength intact bilaterally and rated 5/5, no motor deficits, speech is clear, occasional stuttering, no difficulty word finding, no peripheral sensory deficits, negative pronator drift, follows commands appropriately. Discharge Data Allergies Allergy/AdvReac Type Severity Reaction Status Date / Time adhesive Allergy Mild red/blistered Verified 01/30/20 10:23 skin latex Allergy Mild CONTACT Verified 01/30/20 10:23 DERMATITIS carvedilol Allergy Unknown pt unsure, Verified 01/30/20 10:23 listed prior acetaminophen [From Percocet] Allergy Unknown Verified 01/30/20 10:23 gabapentin Allergy Unknown Verified 01/30/20 10:23 ranitidine [From Zantac] Allergy Unknown Verified 01/30/20 10:23 omeprazole AdvReac Intermediate HALLUCINATI Verified 01/30/20 10:23 ONS oxycodone AdvReac Intermediate itching Verified 01/30/20 10:23 phenobarbital AdvReac Intermediate HALLUCINATI Verified 01/30/20 10:23 ONS cephalexin AdvReac Mild DIARRHEA Verified 01/30/20 10:23 fentanyl AdvReac Mild altered Verified 01/30/20 10:23 mental status levofloxacin AdvReac Mild DIARRHEA Verified 01/30/20 10:23 meperidine AdvReac Mild HEADACHES Verified 01/30/20 10:23 metformin AdvReac Mild DIARRHEA Verified 01/30/20 10:23 Sulfa (Sulfonamide AdvReac Mild DIARRHEA Verified 01/30/20 10:23 Antibiotics) fluoxetine AdvReac Unknown Unknown Verified 01/30/20 10:23 Consultations 01/25/20 15:51 ED Decision to Admit Stat 01/25/20 19:43 Consult Case Management - Discharge Planning Routine Consult Neurology Routine Ordered Studies 01/25/20 14:32 CT head/brain wo con Stat 01/25/20 15:30 MR angio head wo con Stat MR brain wo con Stat Hospital Course (1) Transient ischemic attack: Doubt above diagnosis as this appears to be a chronic problem: due to her gait abnormlaities. -Admit to med surg for Obs -Stroke order set completed -Neurology consulted Transient worsening of chronic problem/known multifactorial gait abnormality. No stroke seen on imaging, would not localize to a specific lesion to explain bilateral gait disturbance. She did have BLE mild weakness on exam and was unsteady walking around which she reports is her baseline. - recommend outpatient PT/gait training to help prevent falls - advised her to use walker as needed to get around safely. (2) Chronic cerebral ischemia: (3) Subdural hematoma: -Hx of such in January 2019 causing small subdural hematoma secondary to multiple falls --that has since resolved -Now back on aspirin, Eliquis -NO acute intracranial abnormality seen on imaging studies including CT and MRI/MRA -Has previously followed with Jaclyn Case (4) Atrial fibrillation: -Paroxysmal, s/p cardioversion, rate controlled on digoxin and diltiazem -EKG reviewed -Continue on Eliquis 5 mg twice daily (5) Hypertension: BP elevated, will resume home BP meds. And will defer further management to PCP. (6) HLD (hyperlipidemia): -Continue atorvastatin 20 mg, possibly need to increase to 40 mg if could tolerate (7) PAD (peripheral artery disease): - stable (8) Diabetes mellitus, type II: -Hold glimepiride -ISS with Accu-Cheks AC at bedtime -Continue home dosing of Lantus 40 units QPM -Checking A1c with a.m. labs (9) Chronic kidney disease, stage 3: -Creatinine equal 1.69, BUN elevated at 35, appears to be slightly elevated compared to her baseline -Hold losartan/HCTZ -Follow a.m. labs -Likely partially due to hypertension, Imdur increased to 90 mg QAM earlier this month -Follows with Dr. Aguirre as an outpatient (10) Chronic osteoarthritis: -Stable (11) LUZMA (obstructive sleep apnea): (12) Vitamin D deficiency: -Continue supplementation, vitamin D3 1000 units daily (13) Hypothyroidism: -Status post thyroidectomy, continue levothyroxine 88 mcg daily, was re cently increased at the end of November, recheck TSH during this hospital stay as was scheduled for in 6 weeks (14) Anemia: - Hgb 11.6, anemia of chronic disease (15) DVT prophylaxis: -Indira Hernandez CODE STATUS: DNR/DNI Total Time Total Time Spent Total Time Spent (In Minutes): 32 Total Time Includes: Examination of the Patient, Discharge Planning and Medication Reconciliation Discharge Plan Discharge Items Patient Disposition: Home - Self-Care Reason For Visit: R/O CVA Discharge Diagnosis: ambulatory dysfunction Activity: Resume your previous activity Non-emergency contact: Primary Care Provider Call non-emergency contact if: you have any medication questions Follow-up/Referrals: Bro Neil CRNP [Primary Care Provider] - (MAKE AN APPOINTMENT WITH YOUR PRIMARY CARE PROVIDER WITHIN 7 DAYS OF DISCHARGE) Diet: Regular Addtl Attending Provider Instructions: You may benefit from physical therapy will give you a script for a wheel walker.. . Pending Studies at Discharge: No Stand-Alone Forms: [employer], Smoking Cessation Medications and DC Order Prescriptions: Continued glimepiride 2 mg tablet 2 mg PO BID Qty: 180 RF: 3 (DME) OneTouch Ultra Blue Test Strip strip See Dose Instructions .ROUTE .MEDSUPPLY Qty: 100 RF: 5 (DME) lancets [OneTouch Delica Lancets] 33 gauge misc See Dose Instructions .ROUTE .MEDSUPPLY Qty: 100 RF: 5 duloxetine 60 mg capsule,delayed release(DR/EC) 60 mg PO QAM Qty: 90 RF: 1 rabeprazole [AcipHex] 20 mg tablet,delayed release (DR/EC) 20 mg PO QAM Qty: 180 RF: 2 losartan-hydrochlorothiazide 100-25 mg tablet 1 tab PO DAILY Qty: 90 RF: 3 atorvastatin 20 mg tablet 20 mg PO QAM Qty: 90 RF: 1 apixaban 2.5 mg tablet 2.5 mg PO BID Qty: 60 RF: 0 digoxin 125 mcg (0.125 mg) tablet 125 mcg PO 3XWK RF: 0 (DME) [place] Pen Needle 33 gauge x 5/32" needle See Dose Instructions .ROUTE .MEDSUPPLY Qty: 100 RF: 0 Restasis 0.05 % dropperette 1 drp OPB BID RF: 0 levothyroxine 88 mcg tablet 88 mcg PO DAILY Qty: 90 RF: 3 diltiazem HCl 120 mg capsule,extended release 24 hr 120 mg PO BID Qty: 180 RF: 3 valacyclovir 1 gram tablet 1,000 mg PO DAILY PRN (Reason: cold sores) Qty: 30 RF: 0 acetaminophen [Tylenol] 325 mg tablet 650 mg PO HS RF: 0 aspirin [Aspirin Low Dose] 81 mg Tablet,Delayed Release (Dr/Ec) 81 mg PO HS RF: 0 multivitamin capsule 1 cap PO QPM RF: 0 ascorbic acid (vitamin C) [Vitamin C] 500 mg Tablet 500 mg PO QAM RF: 0 cholecalciferol (vitamin D3) [Vitamin D3] 1,000 unit capsule 1,000 units PO QAM RF: 0 metoprolol tartrate 100 mg tablet 125 mg PO BID RF: 0 isosorbide mononitrate 30 mg tablet extended release 24 hr 30 mg PO QAM RF: 0 isosorbide mononitrate 60 mg tablet extended release 24 hr 60 mg PO QAM RF: 0 No Action Lantus Solostar U-100 Insulin 100 unit/mL (3 mL) insulin pen 42 units SQ QPM Qty: 15 RF: 3 hydralazine 10 mg tablet 10 mg PO BID Qty: 60 RF: 2 nystatin 100,000 unit/mL suspension 5 ml PO DAILY Qty: 60 RF: 0 nystatin-triamcinolone 100,000-0.1 unit/g-% cream 1 appln TOP BID Qty: 30 RF: 3 Discharge Orders: Discharge Order (Routine); Ordered 01/26/20 Ordered By: Jimy Ortega Admission Data Admit Date/Time: 01/25/20 16:13 Attending Provider: Jimy Ortega Admit Provider: Shahana Mcguire Primary Care Provider: Bro Neil Other Providers: Shahana Mcguire ; Jaclyn Cabezas Other Interventions: Discharge Summary Assessment (RN) Last Done: 01/26/20 17:48 DC Date/Time DO NOT enter until pt leaves facility: 01/26/20 18:30 Coding Level of Care Code 23968 OBS Care - Discharge Diagnoses Transient ischemic attack G45.9 Chronic cerebral ischemia I67.82 Subdural hematoma S06.5X9A Atrial fibrillation I48.91 Hypertension I10 HLD (hyperlipidemia) E78.5 PAD (peripheral artery disease) I73.9 Diabetes mellitus, type II E11.9 Chronic kidney disease, stage 3 N18.3 Chronic osteoarthritis M19.90 LUZMA (obstructive sleep apnea) G47.33 Vitamin D deficiency E55.9 Hypothyroidism E03.9 Anemia D64.9 DVT prophylaxis Z29.9 Time Spent (min) 35
== END 2020-01-26 18:30 | disposition home or self-care (01) ==
LOC: ED 14:24 → 2N 14:24 → SUATTDRO 16:13 → 2N 19:04

== ENCOUNTER 2021-05-06 21:10 | Inpatient (IN) ==
[2021-05-06 22:00] LABS: Hematocrit (blood only) 33.6 % (37-47); Hemoglobin 11.1 g/dL (12.0-16.0); Mean Corpuscular Hemoglobin 31.2 pg (25-34); Mean Corpuscular Volume 94.4 fL (80-100); Platelet Count 274 K/uL (130-400); RDW Coefficient of Variation 13.4 % (11.5-14.5); Red Blood Count 3.56 M/uL (4.2-5.4); White Blood Count 12.57 K/uL (4.8-10.8)
[2021-05-06 22:12] LABS: Partial Thromboplastin Ratio 1.2; Partial Thromboplastin Time 32.3 Seconds (21.0-31.0); Prothrombin Time 10.6 Seconds (9.0-12.0)
[2021-05-06 22:17] LABS: Alanine Aminotransferase 21 U/L (12-78); Albumin Level 3.2 gm/dl (3.4-5.0); Aspartate Aminotransferase 17 U/L (15-37); Blood Urea Nitrogen 27 mg/dl (7-18); Carbon Dioxide 26 mmol/L (21-32); Chloride 100 mmol/L (98-107); Est GFR (African American) 29.3 ml/min; Est GFR (Non-African American) 25.2 ml/min; Glucose 162 mg/dl (70-99); Magnesium 1.6 mg/dl (1.8-2.4); Sodium 133 mmol/L (136-145)
[2021-05-06 22:20] LABS: Albumin Globulin Ratio 0.7 (0.9-2); Alkaline Phosphatase 99 U/L (45-117); Bilirubin,Total 0.3 mg/dl (0.2-1); Globulin 4.4 gm/dl (2.5-4.0); Total Protein 7.6 gm/dl (6.4-8.2)
[2021-05-06] MEDS ORDERED: ACETAMINOPHEN 1,000 MG/100 ML VIAL IV STA (22:37)
--- NOTE | 2021-05-06 22:42 | Emergency Department Note ---
Impression & Plan Left-sided weakness, Hypertension, Left sided numbness, Confusion, Fall ED Provider Note Provider: Ollie Kingston MD DATE OF SERVICE: 05/06/2021 CHIEF COMPLAINT: Headache, numbness, confusion HISTORY OF PRESENT ILLNESS: Patient is a 81-year-old female with a past medical history including CKD, carotid stenosis, PAD, subdural hematoma, paroxysmal atrial fibrillation currently on Eliquis presenting via ambulance today from home after fall. Patient states shortly after she awoke this morning began to have some numbness in her left arm. States that the little bit weak all day as well. Evidently this evening after dinner began to feel a bit confused around 4-5 this afternoon and then fell to the ground while trying to get up. Son able to give me a clear history and the who is present states he was out of the room when this happened. She is unable to get up and ambulance called. Upon arrival she reports that she is having numbness and some weakness left arm as well as some numbness and weakness of the left leg. Denies significant difficulty speaking or chest pain. Denies significant neck pain but does report a headache. REVIEW OF SYSTEMS: A total of 10 review of systems was obtained and negative except as stated above in the HPI. PAST MEDICAL HISTORY: As noted above MEDICATIONS: Reviewed home medications SOCIAL HISTORY: Lives at home with PHYSICAL EXAM: GENERAL: alert and oriented in no acute distress on stretcher, the patient does at times have some slight difficulty following directions Head: normocephalic and atraumatic EYES: No injection, discharge or icterus. PERRL NECK: Trachea midline. Supple. ENT: Mucous membranes pink and moist. Pharynx without erythema or exudate. LUNGS: Airway patent. No retractions. Breath sounds clear HEART: Regular rate and rhythm. No chest wall tenderness ABDOMEN: Soft and non-tender, without guarding or rebound. SKIN: Acyanotic, warm, dry, without rashes EXTREMITIES: Without swelling, tenderness or deformity NEUROLOGICAL:No aphasia. No slurred speech. Patient reports some numbness compared to the right side in both the left lower leg as well as the left arm. Is able to lift the left leg over ground although there is some drift and weakness. Patient has some weakness and drift of the left upper arm as well. Right arm and right leg appear normal. No facial droop appreciated tongue is m idline. EK bpm sinus rhythm with [address] segment elevation noted with some nonspecific T wave changes QTC 399. CONTINUOUS CARDIAC MONITORING: was ordered and showed a heart rate of 60s to 80s bpm in normal sinus rhythm rare PVC GCS 15 1 view chest x-ray per my interpretation: No evidence of pneumonia or pneumothorax. No free air under the diaphragm. No significant pleural effus ions appreciated. Patient's laboratory studies and imaging reviewed. Differential includes Infection, dehydration, metabolic abnormality, hypo/hyperglycemia, electrolyte disturbance, anemia, hypoxia, cardiac sources, intracerebral event, toxicologic, neurologic, as well as other pathologies. IMPRESSION/MEDICAL DECISION MAKING: Patient presents reporting onset earlier today of some left-sided arm numbness now with some left arm and leg numbness. Not the best historian but given the symptoms started earlier today and that she is on Eliquis do not believe she is a TPA candidate and thus not made a stroke alert. Do not see significant evidence of trauma on exam of the patient. Given her kidney dysfunction do not feel is appropriate given IV contrast and lower suspicion for large vessel occlusion at this time she does have movement of left arm and leg. Again on exam drift of the left leg and arm were noted. CT of the head per read as below without significant normality acutely. Basic labs obtained shows slight leukocytosis. Chronic CKD noted. Urinalysis was ordered but pending. Covid test ordered for admission. She is somewhat confused and not following directions the best. reports she has had issues with some delirium in the past in the hospital. UA not impressive for UTI as possible cause. She does not appear meningitic. Given some Tylenol for the headache she is experiencing although from her description it sounds like that was more after the fall from what I can obtain from her. Blood pressure significant elevated given a dose of labetalol here; question if there is some component of hypertensive emergency to this. Recommend further care here at the hospital and patient and her at bedside were in agreement. The hospitalist was contacted. DIAGNOSIS: Left-sided numbness and weakness, fall, confusion, hypertension DISPOSITION: Hospitalist will evaluate Patient was agreeable with this plan. Preliminary Findings Only See Final Report For Complete Findings CT HEAD: Compared to 01/25/20. No intracranial hemorrhage or acute cortical infarct. Involutional changes and small vessel disease. Radiologist: Padmini Finnegan M.D. Study ready at 22:03 and initial results transmitted at 22:25 Preliminary Findings Only See Final Report For Complete Findings CT C SPINE: Degenerative changes without evidence of acute fracture. Nodular density at the right posterior thyroid. Radiologist: Padmini Finnegan M.D. Study ready at 22:05 and initial results transmitted at 22:29 Past Med/Surg History Medical History (Updated 05/07/21 @ 00:40 by Ollie Kingston M.D.) Anxiety Atrial fibrillation Benign essential tremor Bowel perforation Chronic gastritis Chronic kidney disease, stage 3 Chronic osteoarthritis Depression Diabetes mellitus, type II Diverticular disease HX DIVERTICULITIS PER RECORDS GERD (gastroesophageal reflux disease) Hiatal hernia History of blood transfusion POST-OP ROBE History of palpitations HLD (hyperlipidemia) Hx of intestinal obstruction 50 YEARS AGO PER RECORDS Hypertension 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 H/O total thyroidectomy H/O: hysterectomy History of back surgery LUMBAR DISCECTOMY History of blepharoplasty History of bowel resection History of cardiac cath X2 TOTAL (10+ YEARS AGO)= NO STENTS History of herniorrhaphy VENTRAL HERNIA History of inguinal hernia repair X3 (CHILD) History of laryngoscopy REMOVAL OF POLYPS History of repair of hiatal hernia (~02/2019) History of repair of rotator cuff RIGHT X3, LEFT X 1 History of tubal ligation Hx of hand surgery LUMP REMOVED FROM RIGHT HAND Previous section X3 S/P appendectomy S/P carotid endarterectomy (~2011) RIGHT S/P cholecystectomy S/P hysterectomy (01/22/13) S/P lumpectomy of breast RIGHT Family History Son Family history of reaction to anesthesia SLOW TO WAKE Diabetes Brother Family history of diabetes mellitus Myocardial infarction Sister Family history of diabetes mellitus Mother Family history of diabetes mellitus Myocardial infarction Uncle Family hx of colon cancer X 3 Colorectal cancer Denies family history of Ovarian cancer Prostate cancer Breast cancer Social History Smoking Status: Never smoker Second Hand Exposure: No; Hx Alcohol Use: No Hx Substance Use: No Preferred Language: Greenlandic Communication Ability: Effective Visual Impairment: No Limitations Hearing Ability: Normal Cake Wringer Required: No Beliefs That Will Affect Care: None marital status: Current Living Situation: Spouse current occupational status: retired Feels Safe at Home: Yes Childhood Exposure to Second-Hand Smoke: Yes caffeine: Yes (Tea x 2 cups per day.) during the past year weight has: remained stable Dental Care, Regularly: Yes Physical Activity Frequency: Does not Exercise Seatbelt Use: always Sunscreen Use: Yes Assistive Devices: None Allergies Allergies Allergy/AdvReac Type Severity Reaction Status Date / Time adhesive Allergy Mild red/blistered Verified 05/06/21 21:47 skin latex Allergy Mild CONTACT Verified 05/06/21 21:47 DERMATITIS acetaminophen [From Percocet] Allergy Unknown Unknown Verified 05/06/21 21:47 carbidopa Allergy Unknown Unknown Verified 05/06/21 21:47 carvedilol Allergy Unknown pt unsure, Verified 05/06/21 21:47 listed prior gabapentin Allergy Unknown Unknown Verified 05/06/21 21:47 ranitidine [From Zantac] Allergy Unknown Unknown Verified 05/06/21 21:47 omeprazole AdvReac Intermediate HALLUCINATI Verified 05/06/21 21:47 ONS oxycodone AdvReac Intermediate itching Verified 05/06/21 21:47 phenobarbital AdvReac Intermediate HALLUCINATI Verified 05/06/21 21:47 ONS cephalexin AdvReac Mild DIARRHEA Verified 05/06/21 21:47 fentanyl AdvReac Mild altered Verified 05/06/21 21:47 mental status levofloxacin AdvReac Mild DIARRHEA Verified 05/06/21 21:47 meperidine AdvReac Mild HEADACHES Verified 05/06/21 21:47 metformin AdvReac Mild DIARRHEA Verified 05/06/21 21:47 Sulfa (Sulfonamide AdvReac Mild DIARRHEA Verified 05/06/21 21:47 Antibiotics) fluoxetine AdvReac Unknown Unknown Verified 05/06/21 21:47 Home Meds Home Medications Medication Instructions Recorded Confirmed aspirin [Aspirin Low Dose] 81 mg PO HS 07/21/18 05/06/21 ascorbic acid (vitamin C) [Vitamin 500 mg PO QAM 02/23/19 05/06/21 C] acetaminophen 325 mg tablet 650 mg PO HS tab 07/20/19 05/06/21 cholecalciferol (vitamin D3) 25 1,000 units PO QAM cap 07/20/19 05/06/21 mcg (1,000 unit) capsule tretinoin [Retin-A] 1 applic TOPICAL HS 06/26/20 05/06/21 multivitamin 1 tab PO DAILY 12/12/20 05/06/21 cyclosporine 0.05 % eye drops in a 1 drp OPHTHALMIC (EYE) DAILY 12/13/20 05/06/21 dropperette insulin glargine [Lantus Solostar 48 unit SQ QPM 04/16/21 05/06/21 U-100 Insulin] Previous Rx's Medication Instructions Recorded valacyclovir 1 gram tablet 1,000 mg PO DAILY PRN #30 tab 01/24/20 glimepiride 2 mg tablet 2 mg PO BID #180 tab 05/01/20 isosorbide mononitrate 60 mg 60 mg PO QAM #90 tab 09/26/20 tablet,extended release 24 hr apixaban 2.5 mg tablet 2.5 mg PO BID #180 tab 11/20/20 atorvastatin 20 mg tablet 20 mg PO QAM #90 tab 11/20/20 rabeprazole 20 mg tablet,delayed 20 mg PO QAM #180 tab 11/20/20 release losartan 100 1 tab PO DAILY #90 tab 11/26/20 mg-hydrochlorothiazide 25 mg tablet tramadol 50 mg PO Q6H PRN #20 tab 12/12/20 diltiazem HCl 120 mg capsule,24 120 mg PO BID #180 cap 12/24/20 hr,extended release levothyroxine 88 mcg tablet 88 mcg PO DAILY #90 tab 12/25/20 isosorbide mononitrate 30 mg 30 mg PO QAM #90 tab 01/14/21 tablet,extended release 24 hr hydralazine 10 mg tablet 10 mg PO TID #270 tab 02/18/21 digoxin 125 mcg (0.125 mg) tablet 125 mcg PO 3XWK #30 tab 03/22/21 levetiracetam 250 mg tablet 250 mg PO BID #60 tab 04/10/21 metoprolol tartrate 100 mg tablet 100 mg PO BID #180 tab 04/12/21 metoprolol tartrate 25 mg tablet 25 mg PO BID #180 tab 04/12/21 duloxetine 30 mg capsule,delayed 30 mg PO DAILY 30 Days #30 cap 04/23/21 release Results & Data (ED) Vital Signs Vital Signs - 24 hr 05/06/21 21:16 05/06/21 22:08 05/06/21 23:02 Temperature 36.6 C Temperature Source Temporal Artery Scan Pulse Rate 64 78 Pulse Rate from SpO2 Sensor 77 Respiratory Rate 18 25 H Respiratory Effort / Characteristics Non-Labored Respiratory Depth Normal Blood Pressure 196/69 H 243/92 H Blood Pressure Mean 111 142 Pulse Oximetry 96 96 Oxygen Delivery Method Room Air Room Air Sepsis Recent Fever Within 48 Hours No Sepsis New/Unexplained Change in Mental Status No Sepsis Action Taken by Nursing No Action Required 05/06/21 23:03 Temperature Temperature Source Pulse Rate 74 Pulse Rate from SpO2 Sensor Respiratory Rate 20 Respiratory Effort / Characteristics Respiratory Depth Blood Pressure 229/80 H Blood Pressure Mean 129 Pulse Oximetry 93 Oxygen Delivery Method Sepsis Recent Fever Within 48 Hours Sepsis New/Unexplained Change in Mental Status Sepsis Action Taken by Nursing Laboratory Data Result diagrams: 05/06/21 21:47 05/06/21 21:47 Lab Results 05/06/21 05/06/21 05/06/21 Range/Units 21:32 21:39 21:47 WBC 12.57 H (4.8-10.8) K/uL RBC 3.56 L (4.2-5.4) M/uL Hgb 11.1 L (12.0-16.0) g/dL Hct 33.6 L (37-47) % MCV 94.4 (80-100) fL MCH 31.2 (25-34) pg MCHC 33.0 (32-36) g/dL RDW Std Deviation 46.0 (36.4-46.3) fL RDW Coeff of Michael 13.4 (11.5-14.5) % Plt Count 274 (130-400) K/uL MPV 10.0 (7.4-10.4) fL PT (9.0-12.0) Seconds POC INR 1.3 H (0.9-1.1) INR (0.9-1.1) APTT (21.0-31.0) Seconds PTT Ratio Sodium (136-145) mmol/L Potassium (3.5-5.1) mmol/L Chloride (98-107) mmol/L Carbon Dioxide (21-32) mmol/L Anion Gap (3-11) BUN (7-18) mg/dl Creatinine (0.6-1.2) mg/dl Est Cr Clr Drug Dosing Est GFR ( Amer) ml/min Est GFR (Non-Af Amer) ml/min BUN/Creatinine Ratio (10-20) Glucose (70-99) mg/dl POC Glucose 179 H (70-99) mg/dl Calcium (8.5-10.1) mg/dl Magnesium (1.8-2.4) mg/dl Total Bilirubin (0.2-1) mg/dl AST (15-37) U/L ALT (12-78) U/L Alkaline Phosphatase (45-117) U/L Total Protein (6.4-8.2) gm/dl Albumin (3.4-5.0) gm/dl Globulin (2.5-4.0) gm/dl Albumin/Globulin Ratio (0.9-2) Urine Color Urine Appearance (Clear) Urine pH (4.5-7.5) Ur Specific [place] (1.000-1.030) Urine Protein (Negative) Urine Glucose (UA) (Negative) Urine Ketones (Negative) Urine Blood (Negative) Urine Nitrite (Negative) Urine Bilirubin (Negative) Urine Urobilinogen (Negative) Ur Leukocyte Esterase (Negative) Urine WBC (Auto) (0-5) /hpf Urine RBC (Auto) (0-4) /hpf U Hyaline Cast (Auto) (0-5) /lpf U Epithel Cells (Auto) (0-5) /lpf Urine Bacteria (Auto) (Negative) Digoxin (0.8-2.0) ng/ml COVID-19 Eval Order SARS-CoV-2 (PCR) (Negative) 05/06/21 05/06/21 05/06/21 Range/Units 21:47 21:47 21:47 WBC (4.8-10.8) K/uL RBC (4.2-5.4) M/uL Hgb (12.0-16.0) g/dL Hct (37-47) % MCV (80-100) fL MCH (25-34) pg MCHC (32-36) g/dL RDW Std Deviation (36.4-46.3) fL RDW Coeff of Michael (11.5-14.5) % Plt Count (130-400) K/uL MPV (7.4-10.4) fL PT 10.6 (9.0-12.0) Seconds POC INR (0.9-1.1) INR 1.0 (0.9-1.1) APTT 32.3 H (21.0-31.0) Seconds PTT Ratio 1.2 Sodium 133 L (136-145) mmol/L Potassium 4.0 (3.5-5.1) mmol/L Chloride 100 (98-107) mmol/L Carbon Dioxide 26 (21-32) mmol/L Anion Gap 7.0 (3-11) BUN 27 H (7-18) mg/dl Creatinine 1.83 H (0.6-1.2) mg/dl Est Cr Clr Drug Dosing Not Reportable Est GFR ( Amer) 29.3 ml/min Est GFR (Non-Af Amer) 25.2 ml/min BUN/Creatinine Ratio 15.0 (10-20) Glucose 162 H (70-99) mg/dl POC Glucose (70-99) mg/dl Calcium 8.0 L (8.5-10.1) mg/dl Magnesium 1.6 L (1.8-2.4) mg/dl Total Bilirubin 0.3 (0.2-1) mg/dl AST 17 (15-37) U/L ALT 21 (12-78) U/L Alkaline Phosphatase 99 (45-117) U/L Total Protein 7.6 (6.4-8.2) gm/dl Albumin 3.2 L (3.4-5.0) gm/dl Globulin 4.4 H (2.5-4.0) gm/dl Albumin/Globulin Ratio 0.7 L (0.9-2) Urine Color Urine Appearance (Clear) Urine pH (4.5-7.5) Ur Specific [place] (1.000-1.030) Urine Protein (Negative) Urine Glucose (UA) (Negative) Urine Ketones (Negative) Urine Blood (Negative) Urine Nitrite (Negative) Urine Bilirubin (Negative) Urine Urobilinogen (Negative) Ur Leukocyte Esterase (Negative) Urine WBC (Auto) (0-5) /hpf Urine RBC (Auto) (0-4) /hpf U Hyaline Cast (Auto) (0-5) /lpf U Epithel Cells (Auto) (0-5) /lpf Urine Bacteria (Auto) (Negative) Digoxin 0.9 (0.8-2.0) ng/ml COVID-19 Eval Order SARS-CoV-2 (PCR) (Negative) 05/06/21 05/06/21 05/06/21 Range/Units 21:56 21:56 22:48 WBC (4.8-10.8) K/uL RBC (4.2-5.4) M/uL Hgb (12.0-16.0) g/dL Hct (37-47) % MCV (80-100) fL MCH (25-34) pg MCHC (32-36) g/dL RDW Std Deviation (36.4-46.3) fL RDW Coeff of Michael (11.5-14.5) % Plt Count (130-400) K/uL MPV (7.4-10.4) fL PT (9.0-12.0) Seconds POC INR (0.9-1.1) INR (0.9-1.1) APTT (21.0-31.0) Seconds PTT Ratio Sodium (136-145) mmol/L Potassium (3.5-5.1) mmol/L Chloride (98-107) mmol/L Carbon Dioxide (21-32) mmol/L Anion Gap (3-11) BUN (7-18) mg/dl Creatinine (0.6-1.2) mg/dl Est Cr Clr Drug Dosing Est GFR ( Amer) ml/min Est GFR (Non-Af Amer) ml/min BUN/Creatinine Ratio (10-20) Glucose (70-99) mg/dl POC Glucose (70-99) mg/dl Calcium (8.5-10.1) mg/dl Magnesium (1.8-2.4) mg/dl Total Bilirubin (0.2-1) mg/dl AST (15-37) U/L ALT (12-78) U/L Alkaline Phosphatase (45-117) U/L Total Protein (6.4-8.2) gm/dl Albumin (3.4-5.0) gm/dl Globulin (2.5-4.0) gm/dl Albumin/Globulin Ratio (0.9-2) Urine Color Yellow Urine Appearance Clear (Clear) Urine pH 6.0 (4.5-7.5) Ur Specific [place] 1.014 (1.000-1.030) Urine Protein 3+ H (Negative) Urine Glucose (UA) Negative (Negative) Urine Ketones Negative (Negative) Urine Blood Negative (Negative) Urine Nitrite Negative (Negative) Urine Bilirubin Negative (Negative) Urine Urobilinogen Negative (Negative) Ur Leukocyte Esterase Negative (Negative) Urine WBC (Auto) 1-5 (0-5) /hpf Urine RBC (Auto) 0-4 (0-4) /hpf U Hyaline Cast (Auto) 1-5 (0-5) /lpf U Epithel Cells (Auto) 5-10 H (0-5) /lpf Urine Bacteria (Auto) Negative (Negative) Digoxin (0.8-2.0) ng/ml COVID-19 Eval Order Covid19 at [facility] SARS-CoV-2 (PCR) NEGATIVE (Negative) Administered Medications Discontinued Medications Acetaminophen (Ofirmev) 1,000 mg in 100 mls @ 400 mls/hr IV NOW STA Stop: 05/06/21 22:51 Last Infusion: 05/06/21 23:27 Dose: 0 mls/hr Documented by: [id number] Admin: 05/06/21 22:56 Dose: 400 mls/hr Documented by: [id number] Labetalol HCl (Labetalol Hcl Iv 5 Mg/Ml 20ml) 10 mg IV NOW STA Stop: 05/06/21 23:14 Last Admin: 05/07/21 00:19 Dose: 10 mg Documented by: [id number] Cosigned by: [id number] Discharge Plan Visit Data Chief Complaint: Stroke/CVA Symptoms Stated Complaint: CANT MOVE, L ARM NUMB ED Provider: Ollie Kingston Discharge Problem: Left-sided weakness, Hypertension, Left sided numbness, Confusion, Fall Patient Disposition: Being Evaluated by Hospitalist Forms Stand Alone Forms: [facility] Prescriptions Prescriptions: No Action glimepiride 2 mg tablet 2 mg PO BID Qty: 180 RF: 3 isosorbide mononitrate 60 mg tablet extended release 24 hr 60 mg PO QAM Qty: 90 RF: 3 apixaban 2.5 mg tablet 2.5 mg PO BID Qty: 180 RF: 1 atorvastatin 20 mg tablet 20 mg PO QAM Qty: 90 RF: 1 rabeprazole [AcipHex] 20 mg tablet,delayed release (DR/EC) 20 mg PO QAM Qty: 180 RF: 2 diltiazem HCl 120 mg capsule,extended release 24 hr 120 mg PO BID Qty: 180 RF: 3 levothyroxine 88 mcg tablet 88 mcg PO DAILY Qty: 90 RF: 3 isosorbide mononitrate 30 mg tablet extended release 24 hr 30 mg PO QAM Qty: 90 RF: 3 digoxin 125 mcg (0.125 mg) tablet 125 mcg PO 3XWK Qty: 30 RF: 3 metoprolol tartrate 25 mg tablet 25 mg PO BID Qty: 180 RF: 1 metoprolol tartrate 100 mg tablet 100 mg PO BID Qty: 180 RF: 1 hydralazine 10 mg tablet 10 mg PO TID Qty: 270 RF: 3 levetiracetam 250 mg tablet 250 mg PO BID Qty: 60 RF: 5 losartan-hydrochlorothiazide 100-25 mg tablet 1 tab PO DAILY Qty: 90 RF: 3 duloxetine 30 mg capsule,delayed release(DR/EC) 30 mg PO DAILY 30 Days Qty: 30 RF: 5 valacyclovir 1 gram tablet 1,000 mg PO DAILY PRN (Reason: cold sores) Qty: 30 RF: 0 acetaminophen [Tylenol] 325 mg tablet 650 mg PO HS RF: 0 Restasis 0.05 % dropperette 1 drp ophthalmic (eye) DAILY RF: 0 aspirin [Aspirin Low Dose] 81 mg Tablet,Delayed Release (Dr/Ec) 81 mg PO HS RF: 0 ascorbic acid (vitamin C) [Vitamin C] 500 mg Tablet 500 mg PO QAM RF: 0 cholecalciferol (vitamin D3) [Vitamin D3] 1,000 unit capsule 1,000 units PO QAM RF: 0 tretinoin [Retin-A] 0.05 % cream 1 applic TOPICAL HS RF: 0 multivitamin Tablet 1 tab PO DAILY RF: 0 tramadol 50 mg tablet 50 mg PO Q6H PRN (Reason: pain) Qty: 20 RF: 0 Lantus Solostar U-100 Insulin 100 unit/mL (3 mL) insulin pen 48 unit SQ QPM RF: 0 Referrals Referrals: Bro Neil CRNP [Primary Care Provider] - Discharge Problem: Hypertension Qualifiers: Hypertension type: unspecified Qualified Code(s): I10 - Essential (primary) hypertension Fall Qualifiers: Encounter type: initial encounter Qualified Code(s): W19.XXXA - Unspecified fall, initial encounter
[2021-05-06] MEDS ORDERED: LABETALOL HCL IV 5 MG/ML 20ML IV STA (23:13)
[2021-05-06 23:41] LABS: Appearance Urine Clear (Clear); Bacteria Urine Automated Negative (Negative); Bilirubin Urine Negative (Negative); Blood Urine Negative (Negative); Color Urine Yellow; Glucose Urine UA Negative (Negative); Ketones Urine Negative (Negative); Leukocyte Esterase Urine Negative (Negative); Nitrite Urine Negative (Negative); Protein Urine 3+ (Negative); RBC Urine Automated 0-4 /hpf (0-4); Specific Gravity Urine 1.014 (1.000-1.030); Urobilinogen Urine Negative (Negative)
--- NOTE | 2021-05-07 00:37 | History & Physical Report ---
Date of Service May 07, 2021 Assessment & Plan (1) Altered mental status: Mrs. Breaux is an 81 yo female with multiple vascular risk factors who presented to the [facility] ED for unilateral numbness, weakness and change in her mental status. - symptoms concerning for stroke - neuro exam was limited due to patients inability to follow commands (ie could not assess finger to nose because patient could not follow directions) - Non-contrast head CT was normal. tPA not administered, as patient presented outside window and is on Eliquis - Brain MRI, echo, HbA1c and lipid panel ordered - CTA of head and neck not ordered due to concern regarding contrast and kidney function (GFR at 25). Carotid dopplers ordered. - neuro checks per protocol - neuro consult placed - allow for permissive hypertension - goal systolic of 161-180 mmHg over first 12 hours (2) Atrial fibrillation: - NSR on admission - anticoagulated on Eliquis - rate controlled with metoprolol + diltiazem - continue cardiac monitoring (3) Diabetes mellitus, type II: - most recent hbA1c was 9.1 in 07/2020 - HbA1c with am labs - continue home pharmaco regimen: Lantus 48 units SQ PM + glimeperide 2mg BID; titrate based on updated A1c - patient is on a statin (although not at high intensity) + ARB (4) Hypertension: - home reigmen consists of HCTZ- Losartan combo, Metorpolol 125 BID, diltiazem 120 (5) HLD (hyperlipidemia): - fasting lipid panel with am labs - continue atorvastatin 20mg (6) Hypothyroidism: - secondary to total thyroidectomy - continue replacement with levothyroxine 88 mcg - of note, incidental nodular density noted on R posterior thyroid gland on STAT RAD of CT of C spine - unclear what this represents given thyroid has been excised. Await official read (7) Carotid artery stenosis: - s/p R carotid endarterectomy with Dr. Root - continue aspirin - carotid Dopplers ordered Dispo: Med surg with tele DVT: on Eliquis Code: DNR/DNI Diet: Heart Healthy, DM 2 History of Present Illness Primary Care Provider: YANET Zhao Mrs. Breaux is an 81 yo woman with a PHMx of HTN, HLD, DM2, paroxysmal atrial fibrillation on eliquis, peripheral vascular disease and hx of a TIA in 2018 who presented to the ED for evaluation of new onset left sided numbness. After waking up on the morning on 05/06/21, she noticed her left arm was numb. She endorses generalized weakness as the day progressed. Sometime in the mid- afternoon, her left leg became numb. At dinner time, her noted that she seemed confused - after excusing herself from the dinner table, she fell in the living room. Her then phoned 911. She and her denied any changes to her speech throughout the day. She does report a headache. Social Hx: She lives at home with her On arrival to the ED, she was afebrile, HR was 74, BP was 229/80. Her GCS score was 15 and her NIHSS was 9. A stroke alert was not called as she had multiple contraindications to tPA administration (presented outside window, on Eliquis). Her blood sugar was 179, her WBC was mildly elevated to 12, Hgb mildly low at 11.1. Na low at 133, Mag low at 1.6. Cr at 1.83, near baseline. UA benign. Her EKG showed NSR with 1 PVC, no ST segment changes concerning for ischemia, non- specific T wave changes. Non-contrast head CT showing no acute hemorrhage, no cortical infarct. CT of C-spine showing no fracture; a nodular density on the R posterior aspect of thyroid gland was incidentally noted. A aleman catheter was placed. She was given 1gram of IV Tylenol for headache. She was given labetalol 10mg. Allergies Allergy/AdvReac Type Severity Reaction Status Date / Time adhesive Allergy Mild red/blistered Verified 05/06/21 21:47 skin latex Allergy Mild CONTACT Verified 05/06/21 21:47 DERMATITIS acetaminophen [From Percocet] Allergy Unknown Unknown Verified 05/06/21 21:47 carbidopa Allergy Unknown Unknown Verified 05/06/21 21:47 carvedilol Allergy Unknown pt unsure, Verified 05/06/21 21:47 listed prior gabapentin Allergy Unknown Unknown Verified 05/06/21 21:47 ranitidine [From Zantac] Allergy Unknown Unknown Verified 05/06/21 21:47 omeprazole AdvReac Intermediate HALLUCINATI Verified 05/06/21 21:47 ONS oxycodone AdvReac Intermediate itching Verified 05/06/21 21:47 phenobarbital AdvReac Intermediate HALLUCINATI Verified 06/21/21 21:47 ONS cephalexin AdvReac Mild DIARRHEA Verified 05/06/21 21:47 fentanyl AdvReac Mild altered Verified 05/06/21 21:47 mental status levofloxacin AdvReac Mild DIARRHEA Verified 05/06/21 21:47 meperidine AdvReac Mild HEADACHES Verified 05/06/21 21:47 metformin AdvReac Mild DIARRHEA Verified 05/06/21 21:47 Sulfa (Sulfonamide AdvReac Mild DIARRHEA Verified 05/06/21 21:47 Antibiotics) fluoxetine AdvReac Unknown Unknown Verified 05/06/21 21:47 Home Medications Medication Instructions Recorded Confirmed Type aspirin [Aspirin Low Dose] 81 mg PO HS 07/21/18 05/06/21 History ascorbic acid (vitamin C) [Vitamin 500 mg PO QAM 02/23/19 05/06/21 History C] acetaminophen 325 mg tablet 650 mg PO HS tab 07/20/19 05/06/21 History cholecalciferol (vitamin D3) 25 1,000 units PO QAM cap 07/20/19 05/06/21 History mcg (1,000 unit) capsule valacyclovir 1 gram tablet 1,000 mg PO DAILY PRN #30 tab 01/24/20 05/06/21 Rx glimepiride 2 mg tablet 2 mg PO BID #180 tab 05/01/20 05/06/21 Rx tretinoin [Retin-A] 1 applic TOPICAL HS 06/26/20 05/06/21 History isosorbide mononitrate 60 mg 60 mg PO QAM #90 tab 09/26/20 05/06/21 Rx tablet,extended release 24 hr apixaban 2.5 mg tablet 2.5 mg PO BID #180 tab 11/20/20 05/06/21 Rx atorvastatin 20 mg tablet 20 mg PO QAM #90 tab 11/20/20 05/06/21 Rx rabeprazole 20 mg tablet,delayed 20 mg PO QAM #180 tab 11/20/20 05/06/21 Rx release losartan 100 1 tab PO DAILY #90 tab 11/26/20 05/06/21 Rx mg-hydrochlorothiazide 25 mg tablet multivitamin 1 tab PO DAILY 12/12/20 05/06/21 History tramadol 50 mg PO Q6H PRN #20 tab 12/12/20 05/06/21 Rx cyclosporine 0.05 % eye drops in a 1 drp OPHTHALMIC (EYE) DAILY 12/13/20 05/06/21 History dropperette diltiazem HCl 120 mg capsule,24 120 mg PO BID #180 cap 12/24/20 05/06/21 Rx hr,extended release levothyroxine 88 mcg tablet 88 mcg PO DAILY #90 tab 12/25/20 05/06/21 Rx isosorbide mononitrate 30 mg 30 mg PO QAM #90 tab 01/14/21 05/06/21 Rx tablet,extended release 24 hr hydralazine 10 mg tablet 10 mg PO TID #270 tab 02/18/21 05/06/21 Rx digoxin 125 mcg (0.125 mg) tablet 125 mcg PO 3XWK #30 tab 03/22/21 05/06/21 Rx levetiracetam 250 mg tablet 250 mg PO BID #60 tab 04/10/21 05/06/21 Rx metoprolol tartrate 100 mg tablet 100 mg PO BID #180 tab 04/12/21 05/06/21 Rx metoprolol tartrate 25 mg tablet 25 mg PO BID #180 tab 04/12/21 05/06/21 Rx insulin glargine [Lantus Solostar 48 unit SQ QPM 04/16/21 05/06/21 History U-100 Insulin] duloxetine 30 mg capsule,delayed 30 mg PO DAILY 30 Days #30 cap 04/23/21 05/06/21 Rx release Past Med/Surg History Medical History (Updated 05/07/21 @ 18:00 by Ranjeet Guardado) Anxiety Atrial fibrillation Benign essential tremor Bowel perforation Chronic gastritis Chronic kidney disease, stage 3 Chronic osteoarthritis Depression Diabetes mellitus, type II Diverticular disease HX DIVERTICULITIS PER RECORDS GERD (gastroesophageal reflux disease) Hiatal hernia History of blood transfusion POST-OP ROBE History of palpitations HLD (hyperlipidemia) Hx of intestinal obstruction 50 YEARS AGO PER RECORDS Hypertension 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 H/O total thyroidectomy H/O: hysterectomy History of back surgery LUMBAR DISCECTOMY History of blepharoplasty History of bowel resection History of cardiac cath X2 TOTAL (10+ YEARS AGO)= NO STENTS History of herniorrhaphy VENTRAL HERNIA History of inguinal hernia repair X3 (CHILD) History of laryngoscopy REMOVAL OF POLYPS History of repair of hiatal hernia (~02/2019) History of repair of rotator cuff RIGHT X3, LEFT X 1 History of tubal ligation Hx of hand surgery LUMP REMOVED FROM RIGHT HAND Previous section X3 S/P appendectomy S/P carotid endarterectomy (~2011) RIGHT S/P cholecystectomy S/P hysterectomy (01/22/13) S/P lumpectomy of breast RIGHT Family History Son Family history of reaction to anesthesia SLOW TO WAKE Diabetes Brother Family history of diabetes mellitus Myocardial infarction Sister Family history of diabetes mellitus Mother Family history of diabetes mellitus Myocardial infarction Uncle Family hx of colon cancer X 3 Colorectal cancer Denies family history of Ovarian cancer Prostate cancer Breast cancer Social History Smoking Status: Never smoker Second Hand Exposure: Yes (as child); Hx Alcohol Use: No Hx Substance Use: No Preferred Language: Czech Communication Ability: Effective Visual Impairment: No Limitations Hearing Ability: Normal System Support Technician Required: No Beliefs That Will Affect Care: None marital status: Current Living Situation: Spouse Current Living Situation Comment: with current occupational status: retired Other Information That Helps Us Care for You: No Feels Safe at Home: Yes Safety Concerns: Feels Safe At This Time Childhood Exposure to Second-Hand Smoke: Yes caffeine: Yes (Tea x 2 cups per day.) during the past year weight has: remained stable Dental Care, Regularly: Yes Physical Activity Frequency: Does not Exercise Seatbelt Use: always Sunscreen Use: Yes Assistive Devices: Walker Review of Systems Review of Systems: All systems reviewed & are unremarkable except as noted in HPI & below Physical Exam Constitutional: WD/WN, vitals as above + uncooperative Seems irritated, does not always follow commands Eyes: + anicteric sclerae, PERRL and EOM intact bilaterally no gaze palsy ENMT: external ear and nose normal, oropharynx normal Neck: normal visual inspection and trachea midline Respiratory: normal respiratory effort, lungs clear to auscultation Cardiovascular: Rate/Rhythm: regular rate and regular rhythm Heart Sounds: normal S1, normal S2 and + murmur (systolic ejection ) Extremities: + pedal edema (trace b/l) Gastrointestinal (Abdomen): normal bowel sounds, soft, nontender, no hepatosplenomegaly Skin: no rashes, warm and dry Neurologic: CN's II-XI intact bilaterally, moves all extremities and + confused Speech / Cognition: normal speech Motor/Sensory: + tremor (b/l hands) Genitourinary: Aleman catheter in place, draining yellow urine without visible blood clots Results & Data Results & Data ([facility]) Vital Signs (Past 12 Hours) Vital Signs Temp Pulse Resp BP Pulse Ox 05/06/21 23:03 74 20 229/80 H 93 05/06/21 23:02 78 25 H 243/92 H 96 05/06/21 21:16 36.6 C 64 18 196/69 H 96 Supervising Physician Co-Signing Physician Notes Attending addendum: I have physically seen this patient, have supervised the medical residents activities, and agree with the H&P unless as otherwise noted. Assessment and Plan: Altered mental status- Stroke without TPA order set The patient will be admitted to telemetry for serial cardiac enzymes, serial EKG's, cardiac rhythm monitoring and a 2-D echocardiogram with Dopplers. CT head without contrast with no acute findings CTA head and neck not ordered due to GFR of 25 Carotid Dopplers, echocardiogram and MRI of brain without contrast all ordersed Consult PT/OT/social and political studies professor and neurology Carotid artery stenosis/status post right CEA- Continue aspirin Carotid Dopplers ordered and pending as noted Atrial fibrillation/hypertension- Continue Eliquis, metoprolol and diltiazem Hold HCTZ and losartan Permissive hypertension Hyperlipidemia- On atorvastatin 20 mg daily. Check fasting lipid panel, made need to change to higher dose statin atorvastatin 40 mg Remaining orders and notations as noted Resident Activity Tracking Resident Involvement: Resident Care Provided Care Provided: Adult Hospital Medicine (1) Atrial fibrillation Atrial fibrillation type: paroxysmal Qualified Code(s): I48.0 - Paroxysmal atrial fibrillation (2) Hypertension Hypertension type: unspecified Qualified Code(s): I10 - Essential (primary) hypertension
[2021-05-07] MEDS ORDERED: POLYETHYLENE (MIRALAX) 17 GM PACK PO PRN (02:24)
[2021-05-07] MEDS ORDERED: ONDANSETRON INJ 2 MG/ML 2 ML VIAL IV PRN (02:24)
[2021-05-07] MEDS: SODIUM CHLORIDE 0.9% 1000ML 1,000 ML IV SCH ×2 (02:32→14:45)
[2021-05-07] MEDS: hydrALAZINE 10 MG TAB PO SCH ×2 (03:00→19:52)
[2021-05-07] MEDS ORDERED: CARBOHYDRATES FOR HYPOGLYCEMIA PO PRN ×2 (04:00→19:30)
[2021-05-07] MEDS ORDERED: GLUCOSE 40% GEL 15 GM TUBE PO PRN ×2 (04:00→19:30)
[2021-05-07] MEDS ORDERED: DEXTROSE 50% 50 ML SYRINGE IV PRN ×2 (04:00→19:30)
[2021-05-07] MEDS ORDERED: GLUCAGON FOR INJ 1 MG VIAL IM PRN (04:00)
[2021-05-07] MEDS ORDERED: GLUCOSE 10 TABS/TUBE PO PRN ×2 (04:00→19:30)
[2021-05-07] MEDS: LEVOTHYROXINE SODIUM 88 MCG TABLET PO SCH (06:05)
--- NOTE | 2021-05-07 07:15 | CT Scan Report ---
CT OF THE CERVICAL SPINE CLINICAL HISTORY: Neck pain status post trauma COMPARISON STUDY: X-ray study performed April 2008 CT DOSE: 938.85 mGy.cm TECHNIQUE: CT scan of the cervical spine was performed from the skull base to the thoracic inlet. Shreya ges are reviewed in the axial, sagittal, and coronal planes. IV contrast was not administered for thi s examination. A dose lowering technique was utilized adhering to the principles of ALARA. FINDINGS: The visualized portions of the lung apices reveal no evidence of pneumothorax. There is a 7 mm exophy tic right posterior thyroid nodule The prevertebral soft tissues are normal. No acute fractures or traumatic subluxations are visualize d. There are multilevel degenerative changes. Minor anterolisthesis of C7 on T1 is felt to be degenerati ve. Disc bulges/protrusions are suspected at the C3-4 and C4-5 levels. IMPRESSION: No evidence of acute fracture or traumatic subluxation. ACT 112: Negative or not required by law. Electronically signed by: Joe Michael M.D. 05/07/2021 7:13 AM
--- NOTE | 2021-05-07 07:54 | CT Scan Report ---
CT head/brain wo con CLINICAL HISTORY: Stroke Alert COMPARISON STUDY: April 16, 2021 TECHNIQUE: Axial CT of the brain is performed from the vertex to the skull base. IV contrast was not administered for this examination. A dose lowering technique was utilized adhering to the principles of ALARA. CT DOSE: FINDINGS: No intra or extra-axial mass lesions are visualized. There is no CT evidence of acute cortical infarc tion. There is no evidence of midline shift. There is no acute hemorrhage. No acute depressed calvar ial fractures are visualized. There are patchy white matter hypodensities likely on a small vessel basis. Redemonstration of atrophic changes of brain parenchyma associated with ex vacuo dilatation of ventri cles. There is no evidence of acute sinusitis IMPRESSION: No acute intracranial hemorrhage, no midline shift or space occupying lesions. Chronic small vessel ischemia. Atrophic changes of brain parenchyma associated with ex vacuo dilatation of ventricles. ACT 112: Negative or not required by law. The above report was generated using voice recognition software. It may contain grammatical, syntax o r spelling errors. Electronically signed by: Meghann Oshea DO 05/07/2021 7:52 AM
[2021-05-07 07:56] LABS: Basophils # (auto) 0.02 K/uL (0-0.2); Basophils % (auto) 0.2 %; Eosinophils # (auto) 0.23 K/uL (0-0.5); Eosinophils % (auto) 2.2 %; Hematocrit (blood only) 34.6 % (37-47); Hemoglobin 11.7 g/dL (12.0-16.0); Immature Granulocytes # (auto) 0.03 K/uL (0.00-0.02); Immature Granulocytes % (auto) 0.3 %; Lymphocytes # (auto) 1.55 K/uL (1.2-3.4); Lymphocytes % (auto) 14.8 %; Mean Corpuscular Hemoglobin 32.2 pg (25-34); Mean Corpuscular Hgb Conc 33.8 g/dL (32-36); Mean Corpuscular Volume 95.3 fL (80-100); Mean Platelet Volume 10.2 fL (7.4-10.4); Monocytes # (auto) 0.95 K/uL (0.11-0.59); Monocytes % (auto) 9.1 %; Neutrophils # (auto) 7.68 K/uL (1.4-6.5); Neutrophils % (auto) 73.4 %; Platelet Count 289 K/uL (130-400); RDW Coefficient of Variation 13.4 % (11.5-14.5); RDW Standard Deviation 46.7 fL (36.4-46.3); Red Blood Count 3.63 M/uL (4.2-5.4); White Blood Count 10.46 K/uL (4.8-10.8)
--- NOTE | 2021-05-07 08:07 | XRay Report ---
SINGLE VIEW CHEST CLINICAL HISTORY: Strokelike symptoms. FINDINGS: An AP, portable, upright chest radiograph is compared to study dated 01/25/2020 and correlat ed with chest CT dated 07/21/2018. The heart is enlarged noting atherosclerotic calcification of the th oracic aorta. The pulmonary vasculature is noncongested. There is bibasilar atelectasis. No airspace consolidation or large pleural effusion is identified. No pneumothorax is seen. The skeletal structur es are osteopenic. The bony thorax is grossly intact. Degenerative change is noted in the shoulders, with postoperative change seen on the left. Cholecystectomy clips are seen in the right upper quadran t. IMPRESSION: Cardiomegaly with no acute cardiopulmonary abnormality. ACT 112: Negative or not required by law. Electronically signed by: Ridge Valerio M.D. 05/07/2021 8:06 AM
[2021-05-07 08:27] LABS: Calcium 8.1 mg/dl (8.5-10.1); Creatinine Clr Calc Pharmacy 24.4 ml/min; Est GFR (African American) 34.7 ml/min; Est GFR (Non-African American) 29.9 ml/min; Potassium 3.6 mmol/L (3.5-5.1)
[2021-05-07 08:58] LABS: Estimated Average Glucose 212 mg/dl
[2021-05-07] MEDS ORDERED: hydrALAZINE 10 MG TAB PO SCH (09:00)
[2021-05-07] MEDS ORDERED: LOSARTAN/HCTZ 50/12.5MG TAB PO SCH (09:00)
--- NOTE | 2021-05-07 09:13 | Neurology Consultation ---
Date of Consultation May 07, 2021 Assessment & Plan (1) Stroke-like symptoms: (2) Tremor: Strokelike symptoms, confusion, visual field difficulty to the left, transient left-sided numbness and weakness. Symptoms potentially localized to the posterior right cerebral hemisphere. Follow-up with brain MRI results. Patient is already prescribed Eliquis, daily low-dose aspirin, and atorvastatin, continue with these medications. Would recommend a carotid duplex and MRA of the brain without contrast. Continue management of hypertension. Try to get systolic blood pressure closer to 160 mmHg. Continue with low-dose Keppra for her tremor for the time being. History of Present Illness Reason for Consultation: Concern for stroke Requesting Physician: Meenakshi Asencio MD Attending Physician: Toan Wu DO History of Present Illness The patient is an 81-year-old female who follows with me in neurology clinic for mixed action and resting tremor. She has a history of hypertension, hyperlipidemia, diabetes mellitus, atrial fibrillation, anemia, coronary artery disease, chronic kidney disease, restless leg syndrome, sleep apnea, and hypothyroidism. She is also been having difficulty with poor balance and gait dysfunction. No evidence of normal pressure hydrocephalus on previous imaging. I last saw her in neurology clinic April 10, 2021 and had recommended that she continue with Keppra for her tremor at that time. I had noted a mild resting component to her tremor as well and had recommended a trial of Sinemet. This medication may have contributed to some confusion was subsequently discontinued. Her dosage of Cymbalta has also been reduced. She presented to the emergency department yesterday for further evaluation after a fall at home. She had been experiencing some left-sided numbness and generalized weakness throughout the day and had fallen in the late afternoon. She was unable to get up on her arm and she was brought to the emergency department for further evaluation. A CT of the head and cervical spine were completed. She does have evidence of cerebral atrophy and chronic small vessel ischemic disease. There is associated ex vacuo dilatation of the ventricles. No hemorrhage or acute process. Cervical spine imaging unremarkable. I reviewed the images as well as the radiologist's interpretation of these test. CT angiography was not completed in light of patient's history of chronic kidney disease. The patient does seem mildly confused this morning and has some difficulty following simple commands. She otherwise denies any focal weakness or sensory loss at this point in time. She reports that her tremor is about the same. Allergies Allergy/AdvReac Type Severity Reaction Status Date / Time adhesive Allergy Mild red/blistered Verified 05/06/21 21:47 skin latex Allergy Mild CONTACT Verified 05/06/21 21:47 DERMATITIS acetaminophen [From Percocet] Allergy Unknown Unknown Verified 05/06/21 21:47 carbidopa Allergy Unknown Unknown Verified 05/06/21 21:47 carvedilol Allergy Unknown pt unsure, Verified 05/06/21 21:47 listed prior gabapentin Allergy Unknown Unknown Verified 05/06/21 21:47 ranitidine [From Zantac] Allergy Unknown Unknown Verified 05/06/21 21:47 omeprazole AdvReac Intermediate HALLUCINATI Verified 05/06/21 21:47 ONS oxycodone AdvReac Intermediate itching Verified 05/06/21 21:47 phenobarbital AdvReac Intermediate HALLUCINATI Verified 05/06/21 21:47 ONS cephalexin AdvReac Mild DIARRHEA Verified 05/06/21 21:47 fentanyl AdvReac Mild altered Verified 05/06/21 21:47 mental status levofloxacin AdvReac Mild DIARRHEA Verified 05/06/21 21:47 meperidine AdvReac Mild HEADACHES Verified 05/06/21 21:47 metformin AdvReac Mild DIARRHEA Verified 05/06/21 21:47 Sulfa (Sulfonamide AdvReac Mild DIARRHEA Verified 05/06/21 21:47 Antibiotics) fluoxetine AdvReac Unknown Unknown Verified 05/06/21 21:47 Home Medications Medication Instructions Recorded Confirmed Type aspirin [Aspirin Low Dose] 81 mg PO HS 07/21/18 05/06/21 History ascorbic acid (vitamin C) [Vitamin 500 mg PO QAM 02/23/19 05/06/21 History C] acetaminophen 325 mg tablet 650 mg PO HS tab 07/20/19 05/06/21 History cholecalciferol (vitamin D3) 25 1,000 units PO QAM cap 07/20/19 05/06/21 History mcg (1,000 unit) capsule valacyclovir 1 gram tablet 1,000 mg PO DAILY PRN #30 tab 01/24/20 05/06/21 Rx glimepiride 2 mg tablet 2 mg PO BID #180 tab 05/01/20 05/06/21 Rx tretinoin [Retin-A] 1 applic TOPICAL HS 06/26/20 05/06/21 History isosorbide mononitrate 60 mg 60 mg PO QAM #90 tab 09/26/20 05/06/21 Rx tablet,extended release 24 hr apixaban 2.5 mg tablet 2.5 mg PO BID #180 tab 11/20/20 05/06/21 Rx atorvastatin 20 mg tablet 20 mg PO QAM #90 tab 11/20/20 05/06/21 Rx rabeprazole 20 mg tablet,delayed 20 mg PO QAM #180 tab 11/20/20 05/06/21 Rx release losartan 100 1 tab PO DAILY #90 tab 11/26/20 05/06/21 Rx mg-hydrochlorothiazide 25 mg tablet multivitamin 1 tab PO DAILY 12/12/20 05/06/21 History tramadol 50 mg PO Q6H PRN #20 tab 12/12/20 05/06/21 Rx cyclosporine 0.05 % eye drops in a 1 drp OPHTHALMIC (EYE) DAILY 12/13/20 05/06/21 History dropperette diltiazem HCl 120 mg capsule,24 120 mg PO BID #180 cap 12/24/20 05/06/21 Rx hr,extended release levothyroxine 88 mcg tablet 88 mcg PO DAILY #90 tab 12/25/20 05/06/21 Rx isosorbide mononitrate 30 mg 30 mg PO QAM #90 tab 01/14/21 05/06/21 Rx tablet,extended release 24 hr hydralazine 10 mg tablet 10 mg PO TID #270 tab 02/18/21 05/06/21 Rx digoxin 125 mcg (0.125 mg) tablet 125 mcg PO 3XWK #30 tab 03/22/21 05/06/21 Rx levetiracetam 250 mg tablet 250 mg PO BID #60 tab 04/10/21 05/06/21 Rx metoprolol tartrate 100 mg tablet 100 mg PO BID #180 tab 04/12/21 05/06/21 Rx metoprolol tartrate 25 mg tablet 25 mg PO BID #180 tab 04/12/21 05/06/21 Rx insulin glargine [Lantus Solostar 48 unit SQ QPM 04/16/21 05/06/21 History U-100 Insulin] duloxetine 30 mg capsule,delayed 30 mg PO DAILY 30 Days #30 cap 04/23/21 05/06/21 Rx release Patient History Medical History (Updated 05/07/21 @ 09:05 by Harinder Archer MD) Anxiety Atrial fibrillation Benign essential tremor Bowel perforation Chronic gastritis Chronic kidney disease, stage 3 Chronic osteoarthritis Depression Diabetes mellitus, type II Diverticular disease HX DIVERTICULITIS PER RECORDS GERD (gastroesophageal reflux disease) Hiatal hernia History of blood transfusion POST-OP ROBE History of palpitations HLD (hyperlipidemia) Hx of intestinal obstruction 50 YEARS AGO PER RECORDS Hypertension 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 H/O total thyroidectomy H/O: hysterectomy History of back surgery LUMBAR DISCECTOMY History of blepharoplasty History of bowel resection History of cardiac cath X2 TOTAL (10+ YEARS AGO)= NO STENTS History of herniorrhaphy VENTRAL HERNIA History of inguinal hernia repair X3 (CHILD) History of laryngoscopy REMOVAL OF POLYPS History of repair of hiatal hernia (~02/2019) History of repair of rotator cuff RIGHT X3, LEFT X 1 History of tubal ligation Hx of hand surgery LUMP REMOVED FROM RIGHT HAND Previous section X3 S/P appendectomy S/P carotid endarterectomy (~2011) RIGHT S/P cholecystectomy S/P hysterectomy (01/22/13) S/P lumpectomy of breast RIGHT Family History Son Family history of reaction to anesthesia SLOW TO WAKE Diabetes Brother Family history of diabetes mellitus Myocardial infarction Sister Family history of diabetes mellitus Mother Family history of diabetes mellitus Myocardial infarction Uncle Family hx of colon cancer X 3 Colorectal cancer Denies family history of Ovarian cancer Prostate cancer Breast cancer Social History Smoking Status: Never smoker Second Hand Exposure: Yes (as child); Hx Alcohol Use: No Hx Substance Use: No Preferred Language: Japanese Communication Ability: Effective Visual Impairment: No Limitations Hearing Ability: Normal 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 Beliefs That Will Affect Care: None marital status: Current Living Situation: Spouse Current Living Situation Comment: with current occupational status: retired Other Information That Helps Us Care for You: No Feels Safe at Home: Yes Safety Concerns: Feels Safe At This Time Childhood Exposure to Second-Hand Smoke: Yes caffeine: Yes (Tea x 2 cups per day.) during the past year weight has: remained stable Dental Care, Regularly: Yes Physical Activity Frequency: Does not Exercise Seatbelt Use: always Sunscreen Use: Yes Assistive Devices: None Review of Systems Constitutional: no fever and no chills Eyes: no blind spots and no diplopia Ear, Nose, Mouth, Throat: no hearing loss Respiratory: no cough and no dyspnea Cardiovascular: no chest pain and no palpitations Gastrointestinal: no nausea and no vomiting Genitourinary: no dysuria Musculoskeletal: no myalgia Integumentary: no rash and no lesions Neurologic: as per Subjective / HPI Psychiatric: no depression and no anxiety Hematologic / Lymphatic: no easy bleeding and no easy bruising Exam (Neuro) Constitutional: well developed and well nourished; no acute distress Eyes: PERRL, normal accommodation and EOM intact bilaterally; + abnormal visual field confrontation (Patient has some difficulty with direct visual field testing on the left), no fundoscopic abnormality, no nystagmus and no papilledema Cardiovascular: Vessels: normal carotid upstroke; no carotid bruit Neurologic: Oriented to:: Person, Place and Time Memory: Short Term Intact and Remote Intact Attention: Span Intact and Concentration Intact Language: Naming Objects and Repeating Phrases Speech Fluency: Dysfluency; negative Dysarthria Speech Aphasia: negative Aphasia Fund of Knowledge: Current Events, Past History and Vocabulary Cranial Nerves: Normal III, IV, (Pupils equal round reactive to light and accommodation, eye movements normal), V (Facial sensation intact), VII (There is no facial droop or weakness), VIII (Hearing intact), IX, X (Palate elevates to midline), XI (Shoulder shrug intact) and XII (Tongue protrudes to midline); Abnorm II (Difficulty noted with visual field testing, more so to the left) Motor Strength: Normal Lower Extremities and Normal Upper Extremities; negative Pronator Drift Motor Tone: Normal Lower Extremities and Normal Upper Extremities Muscle Bulk/Involuntary Movements: No Involuntary Movements; negative Muscle Atrophy Sensation: Light Touch Intact, Pain/Temperature Intact, Vibration Intact and Proprioception Intact Coordination: Normal; negative Limited Balance, Dysdiadochokinesia, Finger-Nose Abnormal and Heel-Ludwig Abnormal Deep Tendon Reflexes: Rt Triceps: 2+, Lt Triceps: 2+, Rt Biceps: 2+, Lt Biceps: 2+, Rt Brachioradialis: 2+, Lt Brachioradialis: 2+, Rt Patellar: 2+, Lt Patellar: 2+, Rt Ankle: 2+ and Lt Ankle: 2+ Special Tests: negative Babinski Present Gait: negative Normal Station and Gait Details: Gait not tested in the context of patient's neurological status. Patient able to perform simple arithmetic, distinguish left from right, and identify fingers. Processing speed modestly reduced. Results & Data ([facility]) Vital Signs (Past 12 Hours) Vital Signs Temp Pulse Pulse Resp BP BP Pulse Ox 05/07/21 07:51 36.8 C 80 20 208/75 H 93 05/07/21 03:55 37.2 C 65 18 167/65 H 96 05/07/21 02:50 18 194/71 H 05/07/21 02:07 37.0 C 20 94 05/07/21 01:00 69 22 181/73 H 05/07/21 00:30 71 23 165/107 H 93 05/07/21 00:22 65 23 211/74 H 05/06/21 23:31 73 21 188/97 H 05/06/21 23:03 74 20 229/80 H 93 05/06/21 23:02 78 25 H 243/92 H 96 05/06/21 21:16 36.6 C 64 18 196/69 H 96 Laboratory Results WBC 10.46, hemoglobin 11.7, hematocrit 34.6, platelet count 289, sodium 138, potassium 3.6, BUN 22, creatinine 1.59, glucose 93, hemoglobin A1c 9.0, calcium 8.1, magnesium 1.6, triglycerides 190, cholesterol 157, LDL 60, VLDL 38, HDL 59, TSH 4.830, free T4 1.[address] of the head and cervical spine are as described in the history of present illness. An MRA of the head completed last January was negative for significant stenosis, aneurysm, or vessel occlusion. A carotid duplex completed in June 2019 was unremarkable. An electrocardiogram completed yesterday revealed sinus rhythm with occasional premature ventricular complexes, left ventricular hypertrophy with repolarization abnormality, 71 bpm. Coding Level of Care Code 11342 Initial In Care Lvl 3 Diagnoses Stroke-like symptoms R29.90 Tremor R25.1
[2021-05-07] MEDS: DULoxetine HCL 30 MG CAP PO SCH (09:36)
[2021-05-07] MEDS: ISOSORBIDE MONO EXTENDED REL 60 MG TABCR PO SCH (09:36)
[2021-05-07] MEDS: METOPROLOL TARTRATE 25 MG TAB PO SCH ×2 (09:36→20:07)
[2021-05-07] MEDS: levETIRAcetam 250 MG TAB PO SCH ×2 (09:36→20:08)
[2021-05-07] MEDS: ATORVASTATIN 20 MG TAB PO SCH (09:36)
[2021-05-07] MEDS: ISOSORBIDE MONO EXTENDED REL 30 MG TABCR PO SCH (09:36)
[2021-05-07] MEDS: APIXABAN 2.5 MG TAB PO SCH ×2 (09:37→20:09)
[2021-05-07] MEDS: GLIMEPIRIDE 2 MG TAB PO SCH ×2 (09:37→17:17)
[2021-05-07] MEDS: METOPROLOL TARTRATE 100 MG TAB PO SCH ×3 (09:37→20:07)
[2021-05-07] MEDS: dilTIAZem ER 120 MG CAPCR PO SCH ×2 (09:37→20:10)
[2021-05-07] MEDS: PANTOprazole 40 MG TAB PO SCH (09:37)
--- NOTE | 2021-05-07 13:37 | Magnetic Resonance Report ---
MRI OF THE BRAIN WITHOUT CONTRAST CLINICAL HISTORY: Stroke like symptoms. Left arm weakness. COMPARISON STUDY: Noncontrast head CT dated 05/06/2021, MRI the brain dated 01/25/2020 FINDINGS: Sagittal T1, axial diffusion, proton density and T2 weighted axial, coronal FLAIR, and axial T1-weigh esa images were acquired. No intra or extra-axial mass lesions are visualized Axial diffusion-weighted images reveal no evidence of acute or subacute infarction. There is minimal ventricular dilatation, finding which is felt to be secondary to volume loss Proton density T2-weighted and FLAIR images reveal scattered foci of increased T2 signal within the w carmen matter, likely on a small vessel basis. There are no abnormal flow voids. IMPRESSION: 1. No acute intracranial findings 2. No evidence of acute or subacute infarction 3. No evidence of intracranial mass 4. Persistent foci of increased T2 signal within the white matter, similar to the prior study and lik maik a small vessel ischemic basis ACT 112: Negative or not required by law. Electronically signed by: Joe Michael M.D. 05/07/2021 1:36 PM
--- NOTE | 2021-05-07 14:04 | Ultrasound Report ---
ULTRASOUND OF THE CAROTID ARTERIES CLINICAL HISTORY: Stroke. COMPARISON STUDY: June 2019 TECHNIQUE: Real-time, grayscale, and color Doppler sonography of the carotid arteries was performed. Imaging reviewed in the transverse and longitudinal planes. NASCET criteria was utilized for stenosis calcification. FINDINGS: There is mild atherosclerotic plaque present . The peak systolic velocity within the right internal carotid artery is 97 cm/sec. The systolic velocity ratio of right internal to common carotid artery is 0.8. The peak systolic velocity within the left internal carotid artery is 70 cm/sec. The systolic velocity ratio left internal to common carotid artery is 0.6. Antegrade flow is seen in the vertebral arteries. The external carotid arteries are patent. Blood pressure in the right arm measured 181 mm/Hg. Blood pressure in the left arm measured 194 mm/H g. IMPRESSION: No evidence of hemodynamically significant carotid stenosis. ACT 112: Negative or not required by law. Electronically signed by: Joe Michael M.D. 05/07/2021 2:03 PM
--- NOTE | 2021-05-07 14:14 | XCELERA ---
[id number]
[2021-05-07] MEDS: ACETAMINOPHEN 325 MG TAB PO PRN ×2 (14:51→19:32)
--- NOTE | 2021-05-07 15:16 | Electrocardiogram Report ---
Test Reason : Blood Pressure : / mmHG Vent. Rate : 071 BPM Atrial Rate : 071 BPM P-R Int : 166 ms QRS Dur : 084 ms QT Int : 368 ms P-R-T Axes : 046 -17 144 degrees QTc Int : 399 ms Sinus rhythm with occasional Premature ventricular complexes Left ventricular hypertrophy with repolarization abnormality Abnormal ECG When compared with ECG of 16-APR-2021 11:41, Premature ventricular complexes are now Present Confirmed by Tarun Olguin ([id number]) on 05/07/2021 3:16:05 PM Referred By: REFERRED SELF Confirmed By:Tarun Olguin
[2021-05-07] MEDS ORDERED: LOSARTAN/HCTZ 50/12.5MG TAB PO ONE (15:33)
--- NOTE | 2021-05-07 16:47 | Medical Student Progress Note ---
Date of Service May 07, 2021 Assessment & Plan (1) Stroke-like symptoms: - Likely TIA given unremarkable imaging, sudden onset and partial resolution of weakness - Brain MRI, CT head, carotid doppler, echo unremarkable - Per neurology: BP systolic goal 160 - PT/OT refused by patient today, will assess again tomorrow - atorvastatin increased from 20mg to 40mg (2) Altered mental status: - Has some confusion at baseline, however, new restlessness and confusion could be attributed to hospital delirium/ sundowning or pain - Manage pain with toradol - KUB to evaluate abdominal pain - 1 to 1 observation (3) Diabetes mellitus, type II: - A1c: 9.0 - continue home insulin (4) Hypertension: - Blood pressures 160-200/70s throughout the day - Lostartan and hctz restarted, continue diltiazem and metoprolol Hypertension type: unspecified Qualified Code(s): I10 - Essential (primary) hypertension (5) Hypomagnesemia: - Magnesium 1.6 - replete 100 mg (6) Paroxysmal atrial fibrillation: - NSR in the 70s throughout the day - [facility] Admission and Anticipated Discharge Date Admission Date: May 07, 2021 Supervising Attestation I personally examined the patient and verified all lane points of history and exam, discussed case, and agree with decision making with Justin RAMIREZ Not much of any meaningful history obtainable from the patientshe seems fairly confused and has constantly moving around in bed trying to get comfortable. She does complain of a headache, although she does not really quantify itwhenever asked her where the headache is at first she points to my head. Otherwise HPI is fairly limitedthe then starts to supply a lot of back story, but unfortunately he seems to be either a little bit confused on details or not the most reliable historian himselfnoting that she has had some degree of confusion that may have just started yesterday but may have been going on and off for the last month or 4. He wonders if it is medication related, although he does not entirely remember exactly what has been started stopped and changed. He tries to relate this as best as possible. He also notes about 4 to 6 weeks of abdominal painshe does then agree that she has had some abdominal pain, but almost refuses to quantify where it is. Notes that she has a regular daily bowel movement. Charts reviewed extensively going back as far as last year. Vitals noted, she appears somewhat uncomfortable as well as very restless. HEENT normocephalic atraumatic mucous membranes moist, her suboccipital musculature is high in tone, tender, decreased range of motionbut she will not allow for any OMT to be done to try to alleviate the headache. Breathing is unlabored no accessory muscle use good effort. Abdomen is soft mildly distended no guarding rebound or rigidity. Questionable lower abdominal tenderness although not reliably so. Skin shows no rashes, no pallor, no icterus. Neuro shows her to have a somewhat weak left hand, difficult to quantify due to lack of reliably cooperating or following commands but seems to be motor weakness only, and seems to be motor weakness of her left hand only. Left-sided weaknessseems to be resolving, the diagnosis of exclusion of course would be TIA. Fortunately MRI does not show stroke. Given her headache it also could potentially be a complicated migraine, but certainly cerebrovascular disease is the diagnosis of exclusion. Secondary risk reduction. Headacheas above noted could be complicated migraine, but also certainly there is a lot of corroboration for suboccipital tension headache. Tylenol being given, given her CKD and confusion a lot of other medications carry a lot of risk ofwe will utilize an ice pack, magnesium, and time. Continue to follow Confusionthe exact timeline for confusion is somewhat difficult to discern. The seems to have a little bit of a difficult time putting things into a timeline or really quantifying what is been going on/how long/how much is persistent versus how much is waxing and waning, etc. On chart review, unfortunately it is fairly difficult to discern her mental status at each visit, other than that it did not seem overtly abnormal. Of note Keppra was just started in December, she was in the ER at the beginning of this month for confusion after Sinemet was started (it has been subsequently stopped), also medication side effects, while not overly likely, but could be possible as it relates to the Keppra. Given that neurology has seen her several times throughout this course, I will appreciate Dr. Archer's assessment on her mental status now versus when he saw her over the last 3 to 4 months, as this may help determine med side effect versus underlying neurodegenerative process, versus delirium superimposed on some degree of dementia. Supportive care/time/reorientation. Abdominal painexam is benign, CT images from November reviewed showed a rather large fecal load, and her overall history would certainly be consistent with constipationMiraLAX twice daily, consider KUB or reimaging. Serial exams for now. Of note on the difficulty putting together her story, the noted this was going on for about 4 to 6 weeks, and she had seen Dr. Irving during that time line, when on chart review it is noted that she saw him the hallway back on October 17. DispositionPT/OT eval and treat, almost certainly once she is medically more stable she will need some form of placement. While it may simply be that he has difficulty with medical details, we will ask case management to have office of the aging check in on the to ensure his safety as well. DVT prophylaxisanticoagulated with Eliquis Subjective Mrs. Breaux is an 81 year old female with a past medical history of a fib on eliquis, CKD, hypertension and type 2 diabetes who presents after sudden onset left arm and leg weakness and fall. She reports that on 05/06 she felt like her left arm and leg were weak, which got worse throughout the day, until she fell in the evening. She also endorses a headache during this time. This prompted her to come to the ER where she had a head CT and CT spine that was unremarkable. This morning she reported overall feeling well, although her left arm was still weak and she had a headache. She was sitting up and eating. She was oriented to person, place and time and fully cooperative with all components of exam. She was able to accurately recall the events of yesterday and demonstrated understanding of why she was hospitalized. However, throughout the day, she grew progressively more confused and restless, attempting to leave the bed multiple times and frequently repositioning to get comfortable. She refused parts of exam. She was having a headache and abdominal pain that has not been responsive to tylenol. Review of Systems Eyes: no diplopia and no worsening vision Ear, Nose, Mouth, Throat: no hearing loss Respiratory: no dyspnea Cardiovascular: no chest pain, no lightheadedness and no syncope Gastrointestinal: no abdominal pain Musculoskeletal: + muscle weakness left upper extremity weakness Neurologic: + gait abnormality and + unsteadiness Physical Exam Eyes: PERRL, conjunctivae normal, anicteric sclerae Neck: normal visual inspection Respiratory: normal respiratory effort, lungs clear to auscultation Cardiovascular: Rate/Rhythm: regular rate and regular rhythm Heart Sounds: normal S1 and normal S2 Extremities: normal capillary refill and + edema Gastrointestinal (Abdomen): normal bowel sounds, soft, nontender, no hepatosplenomegaly Skin: no rashes, warm and dry Neurologic: Alert and oriented X3 and situation, CN II-XII intact, motor: moves all extremities, tremor in right hand at rest and during movement. sensory: vibration sense intact on all extremities. 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 coordination: unable to assess coordination as patient could not follow 2 step commands. no pronator drift reflexes: patellar, bicep, brachioradialis, achilles symmetrical. gait: did not assess gait Results & Data ([facility]) Vital Signs (Past 12 Hours) Vital Signs Temp Pulse Pulse Resp BP Pulse Ox 05/07/21 15:06 36.8 C 70 20 195/77 H 95 05/07/21 11:58 36.9 C 65 20 160/70 H 94 05/07/21 10:23 74 05/07/21 07:51 36.8 C 80 20 208/75 H 93
[2021-05-07] MEDS ORDERED: MAGNESIUM SULFATE / D5W 1 GM/100 ML BAG IV ONE (17:08)
[2021-05-07] MEDS ORDERED: DICLOFENAC SOD 1% GEL 100 GM TUBE EXT PRN (17:08)
[2021-05-07] MEDS: MAGNESIUM SULFATE / D5W 1 GM/100 ML BAG IV SCH ×2 (17:40→19:20)
--- NOTE | 2021-05-07 18:09 | Billing Data ---
Date of Service May 07, 2021 Coding Level of Care Code 19718 Subseq Obs Care Lvl 3
--- NOTE | 2021-05-07 18:45 | XRay Report ---
KUB HISTORY: Acute mid abdominal pain ab pain COMPARISON: CT abdomen pelvis 12/12/2020 FINDINGS: Limited exam secondary to positioning. The bowel gas pattern appears nonobstructive. No pne umatosis or pneumoperitoneum. No urolith identified. Degenerative changes of the spine, pelvis and hi ps. The heart appears mildly enlarged. IMPRESSION: Nonobstructive bowel gas pattern. ACT 112: Negative or not required by law. The above report was generated using voice recognition software. It may contain grammatical, syntax o r spelling errors. Electronically signed by: Devon Orosco M.D. 05/07/2021 6:44 PM
[2021-05-07] MEDS ORDERED: GLUCAGON FOR INJ 1 MG VIAL SQ PRN (19:30)
[2021-05-07] MEDS: POLYETHYLENE (MIRALAX) 17 GM PACK PO SCH (20:08)
[2021-05-07] MEDS: ASPIRIN 81 MG ECTAB PO SCH (20:09)
[2021-05-07] MEDS: INSULIN ASPART 100 UNITS/ML 3 ML PEN SC SCH (20:34)
[2021-05-07] MEDS: INSULIN GLARGINE SOLOSTAR 100 UNITS/ML 3 ML PEN SQ SCH (20:36)
--- NOTE | 2021-05-07 20:50 | Billing Data ---
Date of Service May 07, 2021 Coding Level of Care Code 95412 OBS Care - Level 3
[2021-05-07] MEDS ORDERED: METOPROLOL SUCC 50MG EXT REL TAB PO SCH (21:00)
[2021-05-08] MEDS: SODIUM CHLORIDE 0.9% 1000ML 1,000 ML IV SCH ×2 (01:02→12:18)
[2021-05-08] MEDS: LEVOTHYROXINE SODIUM 88 MCG TABLET PO SCH (05:56)
[2021-05-08 06:48] LABS: Basophils # (auto) 0.01 K/uL (0-0.2); Basophils % (auto) 0.1 %; Eosinophils # (auto) 0.01 K/uL (0-0.5); Eosinophils % (auto) 0.1 %; Hematocrit (blood only) 36.6 % (37-47); Hemoglobin 12.3 g/dL (12.0-16.0); Immature Granulocytes # (auto) 0.04 K/uL (0.00-0.02); Immature Granulocytes % (auto) 0.3 %; Lymphocytes # (auto) 1.54 K/uL (1.2-3.4); Lymphocytes % (auto) 11.9 %; Mean Corpuscular Hemoglobin 31.9 pg (25-34); Mean Corpuscular Hgb Conc 33.6 g/dL (32-36); Mean Corpuscular Volume 94.8 fL (80-100); Mean Platelet Volume 10.1 fL (7.4-10.4); Monocytes # (auto) 0.77 K/uL (0.11-0.59); Neutrophils # (auto) 10.56 K/uL (1.4-6.5); Neutrophils % (auto) 81.6 %; Platelet Count 294 K/uL (130-400); RDW Coefficient of Variation 13.4 % (11.5-14.5); RDW Standard Deviation 46.6 fL (36.4-46.3); Red Blood Count 3.86 M/uL (4.2-5.4); White Blood Count 12.93 K/uL (4.8-10.8)
[2021-05-08 07:19] LABS: BUN Creatinine Ratio 13.4 (10-20); Calcium 8.1 mg/dl (8.5-10.1); Creatinine Clr Calc Pharmacy 25.3 ml/min; Est GFR (African American) 36.9 ml/min; Est GFR (Non-African American) 31.9 ml/min; Potassium 3.6 mmol/L (3.5-5.1)
[2021-05-08] MEDS: INSULIN ASPART 100 UNITS/ML 3 ML PEN SC SCH ×4 (08:20→20:36)
[2021-05-08] MEDS: GLIMEPIRIDE 2 MG TAB PO SCH ×2 (08:23→18:28)
[2021-05-08] MEDS: ATORVASTATIN 20 MG TAB PO SCH (08:23)
[2021-05-08] MEDS: levETIRAcetam 250 MG TAB PO SCH ×2 (08:23→20:32)
[2021-05-08] MEDS: ISOSORBIDE MONO EXTENDED REL 30 MG TABCR PO SCH (08:23)
[2021-05-08] MEDS: METOPROLOL TARTRATE 25 MG TAB PO SCH ×2 (08:24→20:31)
[2021-05-08] MEDS: dilTIAZem ER 120 MG CAPCR PO SCH ×2 (08:24→20:33)
[2021-05-08] MEDS: ISOSORBIDE MONO EXTENDED REL 60 MG TABCR PO SCH (08:24)
[2021-05-08] MEDS: LOSARTAN/HCTZ 50/12.5MG TAB PO SCH (08:24)
[2021-05-08] MEDS: DULoxetine HCL 30 MG CAP PO SCH (08:24)
[2021-05-08] MEDS: hydrALAZINE 10 MG TAB PO SCH ×3 (08:24→20:33)
[2021-05-08] MEDS: APIXABAN 2.5 MG TAB PO SCH ×2 (08:24→20:32)
[2021-05-08] MEDS: METOPROLOL TARTRATE 100 MG TAB PO SCH ×2 (08:25→20:34)
[2021-05-08] MEDS: PANTOprazole 40 MG TAB PO SCH (08:25)
[2021-05-08] MEDS: POLYETHYLENE (MIRALAX) 17 GM PACK PO SCH ×2 (08:25→20:34)
--- NOTE | 2021-05-08 12:32 | Medical Student Progress Note ---
Date of Service May 08, 2021 Assessment & Plan (1) Stroke-like symptoms: - Likely TIA given unremarkable imaging, sudden onset and partial resolution of weakness - Left sided weakness resolving - Brain MRI, CT head, carotid doppler, echo unremarkable - Per neurology: BP systolic goal 160 - atorvastatin increased from 20mg to 40mg (2) Altered mental status: - Has some confusion at baseline, however, new restlessness and confusion could be attributed to hospital delirium/ sundowning or pain although this is difficult to assess - Manage pain with toradol - 1 to 1 observation - Case management: department of aging check on (3) Fever: - Tmax of 38.7 overnight, WBC: 12.83, no fever today - blood cultures, urine cultures pending - incentive spirometry (4) Abdominal pain: - likely due to constipation, his - KUB unremarkable - Miralax (5) Atrial fibrillation: - NSR throughout hospitalization - anticoagulated on Eliquis - rate controlled with metoprolol + diltiazem - continue cardiac monitoring Atrial fibrillation type: paroxysmal Qualified Code(s): I48.0 - Paroxysmal atrial fibrillation (6) Hypertension: - Blood pressures 160-200/70s throughout the day - Lostartan and hctz restarted, continue diltiazem and metoprolol Code: DNR/DNI Diet: Heart healthy DVT prophylaxis: none Dispo: med surge/ tele Hypertension type: unspecified Qualified Code(s): I10 - Essential (primary) hypertension Admission and Anticipated Discharge Date Admission Date: May 07, 2021 Supervising Attestation I personally examined the patient and verified all lane points of history and exam, discussed case, and agree with decision making with A Geo MS2 Patient much more awake and alert today, actually oriented. Notes that her belly is feeling a good bit better. Her left hand moves better. She did fever last night, but does not really seem to remember it. No cough no shortness of breath. No new abdominal pain. No new skin rashes. No urinary symptoms (she does have a catheter in place, but denies any suprapubic pain etc.) no diarrhea. Vitals noted, in general she is awake alert oriented x3 pleasant no distress but does appear somewhat fatigued. HEENT normocephalic atraumatic mucous membranes moist. Cardio is regular without rubs murmurs or gallops, lungs clear to auscultation bilaterally no rales rhonchi or wheezes good effort abdomen is soft nondistended nontender. Skin shows no rashes no pallor or icterus. Neuro shows her left hand to basically be back to normaltherefore she has no focal neuro deficits. Left-sided weaknessseems to be resolving, the diagnosis of exclusion of course would be TIA. Fortunately MRI does not show stroke. Given her headache it also could potentially be a complicated migraine, but certainly cerebrovascular disease is the diagnosis of exclusion. Secondary risk reduction. This has improved Feverno overt signs, symptoms, physical exam findings of bacterial infection. Blood cultures are pending. Low pro calcitonin is reassuring. May have all been atelectasisincentive spirometry. Otherwise serial exams. Headacheseems less likely this complicated migraine given that her hand weaknes s has resolved but headache persists to a degree. Confusionthe exact timeline for confusion is somewhat difficult to discern. The seems to have a little bit of a difficult time putting things into a timeline or really quantifying what is been going on/how long/how much is persistent versus how much is waxing and waning, etc. On chart review, unfortunately it is fairly difficult to discern her mental status at each visit, other than that it did not seem overtly abnormal. Of note Keppra was just started in December, she was in the ER at the beginning of this month for confusion after Sinemet was started (it has been subsequently stopped), also medication side effects, while not overly likely, but could be possible as it relates to the Keppra. Given that neurology has seen her several times throughout this course, I will appreciate Dr. Archer's assessment on her mental status now versus when he saw her over the last 3 to 4 months, as this may help determine med side effect versus underlying neurodegenerative process, versus delirium superimposed on some degree of dementia. Supportive care/time/reorientation. When I see her today she is doing much better in this regard. Abdominal painexam is benign, strongly suspect constipation. Continue MiraLAX. DispositionPT/OT eval and treat, question if she may need some form of subacute rehab. DVT prophylaxisanticoagulated with Eliquis Subjective Mrs. Plummer is a 81 year old female with a complex medical history who presented for left sided weakness and fall, now on hospital day 2. Overnight, she had significant delirium, was restless and attempted to leave the bed multiple times. She also reported having a headache and abdominal pain. She also had a fever overnight, Tmax: 38.7, and an elevated WBC (12.83). This morning, she appears to be feeling better. She does not have a headache or any abdominal pain. She does not remember the events of last night. She was able to eat some of her breakfast, but felt nauseated after. Review of Systems Musculoskeletal: + muscle weakness left upper extremity weakness Neurologic: + gait abnormality and + unsteadiness Physical Exam Eyes: PERRL, conjunctivae normal, anicteric sclerae Neck: normal visual inspection Respiratory: normal respiratory effort, lungs clear to auscultation Cardiovascular: Rate/Rhythm: regular rate and regular rhythm Heart Sounds: normal S1 and normal S2 Extremities: normal capillary refill and + edema Gastrointestinal (Abdomen): normal bowel sounds, soft, nontender, no hepatosplenomegaly Skin: no rashes, warm and dry Neurologic: Alert and oriented X3 and situation, CN II-XII intact, motor: moves all extremities, tremor in right hand at rest and during movement. 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 coordination: unable to assess coordination as patient could not follow 2 step commands. gait: did not assess gait Results & Data ([facility]) Vital Signs (Past 12 Hours) Vital Signs Temp Pulse Pulse Resp BP BP Pulse Ox 05/08/21 11:09 36.7 C 59 L 18 190/72 H 93 05/08/21 07:45 36.7 C 61 18 195/67 H 96 05/08/21 07:19 70 05/08/21 06:10 36.5 C 67 18 185/62 H 96 05/08/21 02:10 37 C 90 16 185/78 H 92
[2021-05-08] MEDS ORDERED: DIGOXIN 0.125 MG TAB PO SCH (16:00)
--- NOTE | 2021-05-08 18:34 | Billing Data ---
Date of Service May 08, 2021 Coding Level of Care Code 61344 Subseq Hosp Care Lvl 3
[2021-05-08] MEDS: ASPIRIN 81 MG ECTAB PO SCH (20:31)
[2021-05-08] MEDS: INSULIN GLARGINE SOLOSTAR 100 UNITS/ML 3 ML PEN SQ SCH (20:35)
[2021-05-09] MEDS: LEVOTHYROXINE SODIUM 88 MCG TABLET PO SCH (05:55)
[2021-05-09] MEDS: METOPROLOL TARTRATE 25 MG TAB PO SCH (08:12)
[2021-05-09] MEDS: ISOSORBIDE MONO EXTENDED REL 30 MG TABCR PO SCH (08:12)
[2021-05-09] MEDS: DULoxetine HCL 30 MG CAP PO SCH (08:12)
[2021-05-09] MEDS: POLYETHYLENE (MIRALAX) 17 GM PACK PO SCH (08:12)
[2021-05-09] MEDS: PANTOprazole 40 MG TAB PO SCH (08:12)
[2021-05-09] MEDS: ATORVASTATIN 20 MG TAB PO SCH (08:12)
[2021-05-09] MEDS: dilTIAZem ER 120 MG CAPCR PO SCH (08:12)
[2021-05-09] MEDS: LOSARTAN/HCTZ 50/12.5MG TAB PO SCH (08:12)
[2021-05-09] MEDS: ISOSORBIDE MONO EXTENDED REL 60 MG TABCR PO SCH (08:13)
[2021-05-09] MEDS: METOPROLOL TARTRATE 100 MG TAB PO SCH (08:13)
[2021-05-09] MEDS: levETIRAcetam 250 MG TAB PO SCH (08:13)
[2021-05-09] MEDS: APIXABAN 2.5 MG TAB PO SCH (08:13)
[2021-05-09] MEDS: GLIMEPIRIDE 2 MG TAB PO SCH (08:13)
[2021-05-09] MEDS: hydrALAZINE 10 MG TAB PO SCH ×2 (08:13→13:57)
[2021-05-09] MEDS: INSULIN ASPART 100 UNITS/ML 3 ML PEN SC SCH ×2 (08:14→12:29)
[2021-05-09 08:19] LABS: BUN Creatinine Ratio 15.5 (10-20); Creatinine Clr Calc Pharmacy 25.3 ml/min; Est GFR (African American) 37.2 ml/min; Est GFR (Non-African American) 32.1 ml/min; Potassium 4.6 mmol/L (3.5-5.1)
[2021-05-09 08:29] LABS: Basophils # (auto) 0.02 K/uL (0-0.2); Basophils % (auto) 0.1 %; Eosinophils # (auto) 0.01 K/uL (0-0.5); Eosinophils % (auto) 0.1 %; Hematocrit (blood only) 34.7 % (37-47); Hemoglobin 11.8 g/dL (12.0-16.0); Immature Granulocytes # (auto) 0.07 K/uL (0.00-0.02); Immature Granulocytes % (auto) 0.5 %; Lymphocytes # (auto) 1.12 K/uL (1.2-3.4); Lymphocytes % (auto) 7.5 %; Mean Corpuscular Hemoglobin 31.1 pg (25-34); Mean Corpuscular Volume 91.6 fL (80-100); Mean Platelet Volume 10.1 fL (7.4-10.4); Monocytes # (auto) 0.77 K/uL (0.11-0.59); Monocytes % (auto) 5.1 %; Neutrophils # (auto) 12.97 K/uL (1.4-6.5); Neutrophils % (auto) 86.7 %; Platelet Count 287 K/uL (130-400); RBC Morphology Unremarkable; RDW Coefficient of Variation 13.1 % (11.5-14.5); RDW Standard Deviation 43.7 fL (36.4-46.3); Red Blood Count 3.79 M/uL (4.2-5.4); White Blood Count 14.96 K/uL (4.8-10.8)
[2021-05-09] MEDS ORDERED: VANCOMYCIN CONSULT ACTIVE PRN (09:45)
[2021-05-09] MEDS ORDERED: VANCOMYCIN HCL 1,500 MG in SODIUM CHLORIDE 0.9% 500 ML IV ONE (10:00)
--- NOTE | 2021-05-09 15:49 | Pharmacy Report ---
Pharmacy Abx Initial Consult - Date of Service May 09, 2021 - Pharmacy Dosing Scope Date of Consult: 05/09/21 Consultation requested by: Dr. Blanca Pharmacy is consulted to initiate Vancomycin IV dosing therapy, order appropriate labs and adjust drug dose/frequency. - Subjective The patient is a 81 year old F admitted on 05/08/21 18:33. - Objective Height: 5 ft Weight: 70.4 kg Vital Signs (Past 12hrs): Vital Signs Temp Pulse Pulse Resp BP Pulse Ox 05/09/21 15:11 36.6 C 58 L 18 150/88 H 94 05/09/21 11:19 36.6 C 51 L 18 150/77 H 97 05/09/21 07:14 47 L 05/09/21 04:00 36.8 C 59 L 18 176/70 H 94 Lab Results (24hrs): Laboratory Tests (24 Hours) 05/09/21 05/09/21 07:34 07:34 WBC 14.96 H Neut # (Auto) 12.97 H Creatinine 1.50 H Est Cr Clr Drug Dosing 25.3 Micro Results: 05/07/21 19:43 Anaerobic Blood Culture - Final Blood - Assessment & Plan Assessment 81 year old F admitted with stroke like symptoms. Blood cultures found to be positive with G positive bacilli. Urine culture pending. Vancomycin is ordered empirically. Plan Vancomycin IV * Estimated PK Parameters: Vd = 0.7 L/kg, Dexter = 0.0255 hr-1, t1/2 = 27 hr * Loading dose: 1500 mg (21.3 mg/kg) IV x 1 given today. * Maintenance dose: 1000 mg IV (14.2 mg/kg) every 36 hours ordered to start tomorrow AM * Goal trough level for Bacteremia: 15 to 20 mcg/mL * Trough Vancomycin level will be ordered for 05/11 if Vanco is continued. Pharmacy will continue to follow and will adjust dose/frequency as necessary. Thank you.
--- NOTE | 2021-05-09 17:00 | Discharge Summary ---
Date of Service May 09, 2021 Admission HPI Per Admitting Provider Mrs. Breaux is an 81 yo woman with a PHMx of HTN, HLD, DM2, paroxysmal atrial fibrillation on eliquis, peripheral vascular disease and hx of a TIA in 2018 who presented to the ED for evaluation of new onset left sided numbness. After waking up on the morning on 05/06/21, she noticed her left arm was numb. She endorses generalized weakness as the day progressed. Sometime in the mid- afternoon, her left leg became numb. At dinner time, her noted that she seemed confused - after excusing herself from the dinner table, she fell in the living room. Her then phoned 911. She and her denied any changes to her speech throughout the day. She does report a headache. Social Hx: She lives at home with her On arrival to the ED, she was afebrile, HR was 74, BP was 229/80. Her GCS score was 15 and her NIHSS was 9. A stroke alert was not called as she had multiple contraindications to tPA administration (presented outside window, on Eliquis). Her blood sugar was 179, her WBC was mildly elevated to 12, Hgb mildly low at 11.1. Na low at 133, Mag low at 1.6. Cr at 1.83, near baseline. UA benign. Her EKG showed NSR with 1 PVC, no ST segment changes concerning for ischemia, non- specific T wave changes. Non-contrast head CT showing no acute hemorrhage, no cortical infarct. CT of C-spine showing no fracture; a nodular density on the R posterior aspect of thyroid gland was incidentally noted. A aleman catheter was placed. She was given 1gram of IV Tylenol for headache. She was given labetalol 10mg. Admission Exam Per Admitting Provider Constitutional: WD/WN, vitals as above + uncooperative Seems irritated, does not always follow commands Eyes: + anicteric sclerae, PERRL and EOM intact bilaterally no gaze palsy ENMT: external ear and nose normal, oropharynx normal Neck: normal visual inspection and trachea midline Respiratory: normal respiratory effort, lungs clear to auscultation Cardiovascular: Rate/Rhythm: regular rate and regular rhythm Heart Sounds: normal S1, normal S2 and + murmur (systolic ejection ) Extremities: + pedal edema (trace b/l) Gastrointestinal (Abdomen): normal bowel sounds, soft, nontender, no hepatosplenomegaly Skin: no rashes, warm and dry Neurologic: CN's II-XI intact bilaterally, moves all extremities and + confused Speech / Cognition: normal speech Motor/Sensory: + tremor (b/l hands) Genitourinary: Aleman catheter in place, draining yellow urine without visible blood clots Principal Diagnosis Suspected TIA with L hand weakness Discharge Exam Constitutional WD/WN, vitals as above Eyes PERRL, conjunctivae normal, anicteric sclerae ENMT external ear and nose normal, oropharynx normal Respiratory normal respiratory effort, lungs clear to auscultation Cardiovascular RRR, no murmur, no edema Gastrointestinal (Abdomen) normal bowel sounds, soft, nontender, no hepatosplenomegaly Musculoskeletal Head/Neck/Chest: normocephalic and head atraumatic Neurologic moves all extremities Psychiatric Orientation: alert, oriented to person, oriented to place and cooperative Discharge Data Allergies Allergy/AdvReac Type Severity Reaction Status Date / Time adhesive Allergy Mild red/blistered Verified 05/06/21 21:47 skin latex Allergy Mild CONTACT Verified 05/06/21 21:47 DERMATITIS acetaminophen [From Percocet] Allergy Unknown Unknown Verified 05/06/21 21:47 carbidopa Allergy Unknown Unknown Verified 05/06/21 21:47 carvedilol Allergy Unknown pt unsure, Verified 05/06/21 21:47 listed prior gabapentin Allergy Unknown Unknown Verified 05/06/21 21:47 ranitidine [From Zantac] Allergy Unknown Unknown Verified 05/06/21 21:47 omeprazole AdvReac Intermediate HALLUCINATI Verified 05/06/21 21:47 ONS oxycodone AdvReac Intermediate itching Verified 05/06/21 21:47 phenobarbital AdvReac Intermediate HALLUCINATI Verified 05/06/21 21:47 ONS cephalexin AdvReac Mild DIARRHEA Verified 05/06/21 21:47 fentanyl AdvReac Mild altered Verified 05/06/21 21:47 mental status levofloxacin AdvReac Mild DIARRHEA Verified 05/06/21 21:47 meperidine AdvReac Mild HEADACHES Verified 05/06/21 21:47 metformin AdvReac Mild DIARRHEA Verified 05/06/21 21:47 Sulfa (Sulfonamide AdvReac Mild DIARRHEA Verified 05/06/21 21:47 Antibiotics) fluoxetine AdvReac Unknown Unknown Verified 05/06/21 21:47 Consultations 05/06/21 23:42 ED Decision to Admit Stat 05/07/21 02:24 Consult Neurology Routine Ordered Studies 05/06/21 21:28 CT head/brain wo con Stat 05/06/21 21:29 CT cervical spine wo con Stat 05/07/21 02:24 MR brain wo con Routine US carotid doppler BI Routine Diabetes Follow up Diabetes Follow-up Needed for HgbA1c >9% Hospital Course (1) Left-sided weakness: Patient is an 81 year old female with complex neurological medical history including TIA, Tremor, HTN, HLD, DM2, Atrial Fibrillation, CAD, CKD, RLS, Hypothyroidism who presented initially with L hand numbness and weakness. This then began to affect her L leg as well with numbness in addition to her chronic lower extremity weakness. Stroke-Like Symptoms suspicious for TIA affecting the L hand and leg -CT head negative for acute bleed, MRI brain negative for current stroke, Carotid Doppler and Echo unremarkable -Neurology was consulted -Patient's atorvastatin was increased to 40mg QD upon discharge -Symptoms with resolution prior to discharge AMS -With some altered mental changes on 05/07/21 -Concerning more for delirium at that time ?secondary constipation, new environment, headache/migraine -Rapidly resolved after bowel movement Abdominal Pain/Constipation -As above with AMS concerns -KUB only notable for a nonobstructive bowel gas pattern. -Suspect a combination of patient's hx of IBS in addition to current constipation -Miralax given while inpatient, would recommend continuing upon discharge with OTC miralax Fever -Had an episode of fever Tmax 38.7C on 05/07/21 -Urine cx negative -Blood cx positive x1 for gram+ bacilli, suspect contamination vs skin farhad - will continue to follow after discharge and notify patient if further growth noted -Patient did receive 1 dose of vancomycin until cultures resulted -No physical exam findings concerning for bacterial infection -Low procalcitonin -?Atelectasis, patient started on incentive spirometry -No further fevers throughout stay Hx Atrial Fibrillation -Continued home medications metoprolol, diltiazem, eliquis Hypertension -Continued metoprolol, diltiazem, losartan, HCTZ, hydralazine Weakness -Chronic -Would continue PT/OT outpatient Total Time Total Time Spent Total Time Spent (In Minutes): <30 Discharge Plan Discharge Items Patient Disposition: Home - Self-Care Reason For Visit: UNILATERAL WEAKNESS AND NUMBNESS Discharge Diagnosis: Suspected TIA with L sided weakness and confusion Activity: Per Instructions section Non-emergency contact: Primary Care Provider and Neurologist Call non-emergency contact if: you have any medication questions, your symptoms worsen and your temperature is above 101 Follow-up/Referrals: Bro Neil CRNP [Primary Care Provider] - 05/21/21 8:20 am (If you have any questions or need to change this appointment, please call [phone].) Diet: Regular Addtl Attending Provider Instructions: Ms. Breaux, It was our pleasure caring for you at [facility] from 05/07 - 05/09/21 for your L hand weakness and tingling. Initially there were concerns that you may have had a stroke leading to your symptoms. MRI of your brain did not show a stroke and your hand numbness and weakness improved significantly during your stay. You had also noted abdominal pain that had been ongoing for several months now that seemed to resolve with a good bowel movement. We suspect that this was likely due to constipation and that continuing 1-2 capfuls of Miralax to have a good bowel movement every 1-2 days would be beneficial to you. In regards to your weakness we would recommend that you continue to follow up with physical therapy to build up your strength and to continue to follow with Dr. Archer your neurologist. You did have a slight fever over one of the nights during your stay. An infectious work up was conducted and found to be primarily negative. A single blood culture you had came back as positive, but the bacteria that were growing were more suspicious of skin bacteria that are always present. We will continue to monitor these cultures as they continue to grow and will notify you if treatment is needed. You were given 1 dose of antibiotics by IV while in the hospital. -Please follow up with your family physician in the next 1-2 weeks after discharge. -Please follow up with your neurologist Dr. Archer at your next scheduled appointment. -Please continue to take your medications as prescribed -Your Atorvastatin was increased from 20mg to 40mg daily, please continue to take 2 of your 20mg tablets daily. A new prescription was sent to your pharmacy as well for refills. -We would recommend that you begin taking over the counter Miralax to assist in having a good bowel movement every 1-2 days. You can start by taking 1-2 capfuls a day and increase or decrease the amount based on the bowel movement the day prior. Pending Studies at Discharge: No Stand-Alone Forms: My [facility], Smoking Cessation Medications and DC Order Prescriptions: New atorvastatin 20 mg Tablet 40 mg PO QAM 30 Days Qty: 60 RF: 0 Continued glimepiride 2 mg tablet 2 mg PO BID Qty: 180 RF: 3 isosorbide mononitrate 60 mg tablet extended release 24 hr 60 mg PO QAM Qty: 90 RF: 3 apixaban 2.5 mg tablet 2.5 mg PO BID Qty: 180 RF: 1 rabeprazole [AcipHex] 20 mg tablet,delayed release (DR/EC) 20 mg PO QAM Qty: 180 RF: 2 diltiazem HCl 120 mg capsule,extended release 24 hr 120 mg PO BID Qty: 180 RF: 3 levothyroxine 88 mcg tablet 88 mcg PO DAILY Qty: 90 RF: 3 isosorbide mononitrate 30 mg tablet extended release 24 hr 30 mg PO QAM Qty: 90 RF: 3 digoxin 125 mcg (0.125 mg) tablet 125 mcg PO 3XWK Qty: 30 RF: 3 metoprolol tartrate 25 mg tablet 25 mg PO BID Qty: 180 RF: 1 metoprolol tartrate 100 mg tablet 100 mg PO BID Qty: 180 RF: 1 hydralazine 10 mg tablet 10 mg PO TID Qty: 270 RF: 3 levetiracetam 250 mg tablet 250 mg PO BID Qty: 60 RF: 5 losartan-hydrochlorothiazide 100-25 mg tablet 1 tab PO DAILY Qty: 90 RF: 3 duloxetine 30 mg capsule,delayed release(DR/EC) 30 mg PO DAILY 30 Days Qty: 30 RF: 5 valacyclovir 1 gram tablet 1,000 mg PO DAILY PRN (Reason: cold sores) Qty: 30 RF: 0 acetaminophen [Tylenol] 325 mg tablet 650 mg PO HS RF: 0 cyclosporine 0.05 % dropperette 1 drp ophthalmic (eye) DAILY RF: 0 aspirin [Aspirin Low Dose] 81 mg Tablet,Delayed Release (Dr/Ec) 81 mg PO HS RF: 0 ascorbic acid (vitamin C) [Vitamin C] 500 mg Tablet 500 mg PO QAM RF: 0 cholecalciferol (vitamin D3) [Vitamin D3] 1,000 unit capsule 1,000 units PO QAM RF: 0 tretinoin [Retin-A] 0.05 % cream 1 applic TOPICAL HS RF: 0 multivitamin Tablet 1 tab PO DAILY RF: 0 tramadol 50 mg tablet 50 mg PO Q6H PRN (Reason: pain) Qty: 20 RF: 0 Lantus Solostar U-100 Insulin 100 unit/mL (3 mL) insulin pen 48 unit SQ QPM RF: 0 Discontinued atorvastatin 20 mg tablet 20 mg PO QAM Qty: 90 RF: 1 Discharge Orders: Discharge Order (Routine); Ordered 05/09/21 Ordered By: Andrzej Blanca Admission Data Admit Date/Time: 05/08/21 18:33 Attending Provider: Toan Wu Admit Provider: Meenakshi Asencio Primary Care Provider: Bro Neil Other Providers: Rik Britton ; Harinder Archer Other Interventions: Discharge Summary Assessment (RN) Last Done: 05/09/21 16:57 Supervising Physician Co-Signing Physician Notes I personally examined the patient and verified all lane points of history and exam, discussed case, and agree with decision making with Dr Blanca feeling better and up to going home. walking better. feels safe at home. expresses clear and good understanding of the situation as well vitals noted NAD HEENT normocephalic atraumatic mucous membranes moist. Breathing unlabored no accessory muscle use good effort. Cranial nerves II through XII grossly intact gross motor and sensory intact no more left hand weakness. Good fast steady gait with ambulation with a walker. Left-sided weaknessseems to be resolving, the diagnosis of exclusion of course would be TIA. Fortunately MRI does not show stroke. Given her headache it also could potentially be a complicated migraine, but certainly cerebrovascular disease is the diagnosis of exclusion. Secondary risk reduction. This has re solved and is safe/stable for home Feverno overt signs, symptoms, physical exam findings of bacterial infection. Blood cultures are pending. Low pro calcitonin is reassuring. May have all been atelectasisincentive spirometry. Blood culture almost certainly false positive given that it is only 1 out of 2 and is gram-positive bacilli. Discussed this with patient and , they are comfortable with going home and having us call them back if the culture surprise us as a true positive (that is extremely unlikely.) Headacheno complaints of this today. Confusionthe exact timeline for confusion is somewhat difficult to discern. The seems to have a little bit of a difficult time putting things into a timeline or really quantifying what is been going on/how long/how much is p ersistent versus how much is waxing and waning, etc. she has improved over the last 2 days, and seems very lucid today. Acutely this may have all been delirium/metabolic encephalopathy, chronic follow-up with neurology and PCP otherwise. Abdominal painexam is benign, strongly suspect constipation. Continue MiraLAX. Dispositionwhile she looks like she may need subacute rehab, at this point she is getting around well enough that it appears that home is safe. DVT prophylaxisanticoagulated with Eliquis Stable for home, otherwise as above Resident Activity Tracking Resident Involvement: Resident Care Provided Care Provided: Adult Hospital Medicine
--- NOTE | 2021-05-09 19:16 | Billing Data ---
Date of Service May 09, 2021 Coding Level of Care Code D/C Day Management <30 mins
[2021-05-10] MEDS ORDERED: VANCOMYCIN HCL 1,000 MG in SODIUM CHLORIDE 0.9% 250 ML IV SCH (10:00)
== END 2021-05-09 17:25 | disposition home or self-care (01) | DRG 69 ==
LOC: ED 21:10 → 2N 21:10 → SUATTDRO 05-07 00:10 → 2N 05-07 01:31

== ENCOUNTER 2021-06-10 10:01 | Observation (INO) ==
[2021-06-10] MEDS ORDERED: OPTIRAY 320 125ml IV ONE (10:04)
--- NOTE | 2021-06-10 10:22 | CT Scan Report ---
HEAD CT NONCONTRAST CT DOSE: 788.63 mGycm HISTORY: Confusion. Weakness. speech issue TECHNIQUE: Multiaxial CT images of the head were performed without the use of intravenous contrast. A utomated exposure control was utilized for this study. A dose lowering technique was utilized adheri ng to the principles of ALARA. Comparison: Head CT 06/04/2021. Findings: The paranasal sinuses and mastoid air cells are clear. The calvarium and skull base are int act. There is no mass, hematoma, midline shift, acute infarct. White matter hypodensity is nonspecifi c but suggestive of microvascular ischemic change. The ventricles and sulci demonstrate mild age-rela esa involutional changes. Impression: No significant change compared to the prior study. No acute intracranial abnormality. ACT 112: Negative or not required by law. Electronically signed by: Umang Martino M.D. 06/10/2021 10:21 AM
--- NOTE | 2021-06-10 10:23 | Emergency Department Note ---
Impression & Plan Speech abnormality, Stroke-like symptoms, Acute UTI, Hypoglycemia ED Provider Note NAME: NAYA BALLESTEROS AGE: 81 SEX: F : 1940 ARRIVES VIA: Ambulance INFORMANT: [, ems] ED PROVIDER(S): [Ridge Ayala MD] Patient first seen by me at 1003. CHIEF COMPLAINT: Stroke symptoms HISTORY OF PRESENT ILLNESS: The patient is an 81-year-old female who was last known to be well last evening before bedtime. This morning, her checked on her and she could not r espond. She could not speak properly and she could not get out of bed. EMS was summoned. As per EMS, the patient's blood sugar was in the 70s. Her vital signs were stable. The primary issue noticed by EMS was her inability to speak. No real deficits noted to her extremities. The patient is on Cipro for a UTI, as per the , this was started for bladder pain. She has about 2 pills left. He states that she has never had a stroke. She seemed fine last night. She is on Eliquis for atrial fibrillation. Given her mental state and inability to speak, no further history obtainable. REVIEW OF SYSTEMS: Unobtainable given her current mental state and speech issue. PMHx/PSHx: See Below SOCIAL HISTORY: See Below. PHYSICAL EXAM: GENERAL: Patient is in no acute distress. HEENT: No acute trauma, normocephalic atraumatic, mucous membranes moist, no nasal congestion, no scleral icterus. Pupils equal and reactive to light. NECK: No stridor, no adenopathy, no meningismus, trachea is midline. LUNGS: Clear to auscultation bilaterally when listening anteriorly, no wheeze, no rhonchi, breath sounds equal. HEART: Without murmurs gallops or rubs, regular rate and rhythm. ABDOMEN: Soft, nontender, bowel sounds positive, no hernias, no peritonitis. EXTREMITIES: No cyanosis or edema, full range of motion of all the joints without pain or difficulty, no signs for acute trauma. NEUROLOGIC: Awake. Alert. Can nod her head yes and no to questioning. Very garbled and unintelligible speech. Seems to have an expressive aphasia. No facial droop. Both lower extremities are weak but equally so. Upper extremities have equal strength and no drift. Patient can follow commands. SKIN: No rash, no jaundice, no diaphoresis. DIFFERENTIAL DIAGNOSIS: Infection, dehydration, metabolic abnormality, hypo/hyperglycemia, electrolyte disturbance, seizure, medication reaction, anemia, hypoxia, cardiac sources, intracerebral event, toxicologic issues, stroke, TIA, as well as other pathologies. EMERGENCY DEPARTMENT COURSE/PROCEDURES: ECG: Indication was stroke. The ECG shows a normal sinus rhythm with a rate of 66. There is diffuse nonspecific ST change especially in the lateral leads. There is no ST elevation, no PVCs. The QTc is 404. Continuous Cardiac Monitoring: An order was placed for continuous cardiac monitoring. The monitor shows a rate of 71 with normal sinus rhythm. Critical Care Note: I have personally spent 52 minutes of critical care time in the direct management of this patient. This includes bedside care, interpretation of diagnostic studies, and testing, discussion with consultants, patient, and family members, and other required patient management activities. This 582 minutes is in excess of all separately billable procedures. MEDICAL DECISION MAKING: There is no leukocytosis or concerning anemia. There is a normal platelet count. No coagulopathy. Sodium slightly low but not in need of emergent correction. Creatinine was elevated at 2.65. This is above her typical baseline. Glucose returned at 58. Calcium is low at 7.7. No concerning liver enzyme elevation. ECG shows a sinus rhythm, no acute ischemia. Cardiac enzyme testing x1 is not consistent with acute cardiac injury. Urinalysis shows findings consistent with infection--of note, she is currently on Cipro for a UTI. Digoxin level was therapeutic. Covid test returned positive. Chest film did not show pneumonia or CHF. Brain CT showed no acute bleed or mass-effect. On exam, the patient had difficulty with her speech. Sometimes, her words were unintelligible, other times, she could not speak at all. I could not find evidence for extremity weakness. There was no facial droop. Because of the somewhat lower sugar, the patient was given IV dextrose, 25 g. Her symptoms seemed to dramatically improved after this dextrose administration. She was placed on a D5 half-normal saline drip. I did call a stroke alert, the stroke neurologist and I spoke over the phone. The patient is not a TPA candidate given her Eliquis use and the prolonged timing of her symptoms. Her last known well was last evening. The patient was given a 500 cc saline bolus. She received IV hydralazine for her higher blood pressure. The patient does seem to be improved since administration of dextrose. At this point, her symptoms seem mostly consistent with hypoglycemia. Stroke seems much less likely. The patient was felt in need of a hospital stay and further medical work-up. I spoke with the patient and her . I did speak with case management. The on-call hospitalist was consulted. 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 H/O total thyroidectomy H/O: hysterectomy History of back surgery LUMBAR DISCECTOMY History of blepharoplasty History of bowel resection History of cardiac cath X2 TOTAL (10+ YEARS AGO)= NO STENTS History of herniorrhaphy VENTRAL HERNIA History of inguinal hernia repair X3 (CHILD) History of laryngoscopy REMOVAL OF POLYPS History of repair of hiatal hernia (~02/2019) History of repair of rotator cuff RIGHT X3, LEFT X 1 History of tubal ligation Hx of hand surgery LUMP REMOVED FROM RIGHT HAND Previous section X3 S/P appendectomy S/P carotid endarterectomy (~2011) RIGHT S/P cholecystectomy S/P hysterectomy (01/22/13) S/P lumpectomy of breast RIGHT Family History Son Family history of reaction to anesthesia SLOW TO WAKE Diabetes Brother Family history of diabetes mellitus Myocardial infarction Sister Family history of diabetes mellitus Mother Family history of diabetes mellitus Myocardial infarction Uncle Family hx of colon cancer X 3 Colorectal cancer Denies family history of Ovarian cancer Prostate cancer Breast cancer Social History Smoking Status: Never smoker Second Hand Exposure: Yes (as child); Do You Dip or Chew Tobacco: No; Hx Alcohol Use: No Hx Substance Use: No Preferred Language: Hebrew Communication Ability: Effective Visual Impairment: No Limitations Hearing Ability: Normal Butcher Or Smallgoods Maker Required: No Beliefs That Will Affect Care: None marital status: Current Living Situation: Spouse Current Living Situation Comment: with current occupational status: retired Other Information That Helps Us Care for You: No Feels Safe at Home: Yes Safety Concerns: Feels Safe At This Time Childhood Exposure to Second-Hand Smoke: Yes caffeine: Yes (Tea x 2 cups per day.) during the past year weight has: remained stable Dental Care, Regularly: Yes Physical Activity Frequency: Does not Exercise Seatbelt Use: always Sunscreen Use: Yes Assistive Devices: Walker Allergies Allergies Allergy/AdvReac Type Severity Reaction Status Date / Time adhesive Allergy Mild red/blistered Verified 06/10/21 10:45 skin latex Allergy Mild CONTACT Verified 06/10/21 10:45 DERMATITIS acetaminophen [From Percocet] Allergy Unknown Unknown Verified 06/10/21 10:45 carbidopa Allergy Unknown Unknown Verified 06/10/21 10:45 carvedilol Allergy Unknown pt unsure, Verified 06/10/21 10:45 listed prior gabapentin Allergy Unknown Unknown Verified 06/10/21 10:45 ranitidine [From Zantac] Allergy Unknown Unknown Verified 06/10/21 10:45 omeprazole AdvReac Intermediate HALLUCINATI Verified 06/10/21 10:45 ONS oxycodone AdvReac Intermediate itching Verified 06/10/21 10:45 phenobarbital AdvReac Intermediate HALLUCINATI Verified 06/10/21 10:45 ONS cephalexin AdvReac Mild DIARRHEA Verified 06/10/21 10:45 fentanyl AdvReac Mild altered Verified 06/10/21 10:45 mental status levofloxacin AdvReac Mild DIARRHEA Verified 06/10/21 10:45 meperidine AdvReac Mild HEADACHES Verified 06/10/21 10:45 metformin AdvReac Mild DIARRHEA Verified 06/10/21 10:45 Sulfa (Sulfonamide AdvReac Mild DIARRHEA Verified 06/10/21 10:45 Antibiotics) fluoxetine AdvReac Unknown Unknown Verified 06/10/21 10:45 Home Meds Home Medications Medication Instructions Recorded Confirmed aspirin 81 mg tablet,delayed 81 mg PO HS 07/21/18 06/10/21 release (Aspirin Low Dose) ascorbic acid (vitamin C) 500 mg 500 mg PO QAM 02/23/19 06/10/21 tablet (Vitamin C) acetaminophen 325 mg tablet 650 mg PO HS tab 07/20/19 06/10/21 (Tylenol) cholecalciferol (vitamin D3) 25 1,000 units PO QAM cap 07/20/19 06/10/21 mcg (1,000 unit) capsule (Vitamin D3) multivitamin (Daily Multi-Vitamin) 1 tab PO QAM 12/12/20 06/10/21 cyclosporine 0.05 % eye drops in a 1 drp OPHTHALMIC (EYE) BID 12/13/20 06/10/21 dropperette (Restasis) insulin glargine 100 unit/mL (3 48 unit SQ QDD ml 05/24/21 06/10/21 mL) subcutaneous pen (Lantus Solostar U-100 Insulin) apixaban 2.5 mg tablet (Eliquis) 2.5 mg PO BID 06/04/21 06/10/21 atorvastatin 40 mg tablet (Lipitor) 40 mg PO QAM 06/04/21 06/10/21 digoxin 125 mcg (0.125 mg) tablet 125 mcg PO [id number] 06/04/21 06/10/21 (Lanoxin) diltiazem HCl 120 mg capsule,24 120 mg PO BID 06/04/21 06/10/21 hr,extended release (Tiazac) duloxetine 30 mg capsule,delayed 30 mg PO QAM 06/04/21 06/10/21 release (Cymbalta) glimepiride 2 mg tablet (Amaryl) 2 mg PO BID 06/04/21 06/10/21 levetiracetam 250 mg tablet 250 mg PO BID 06/04/21 06/10/21 (Keppra) levothyroxine 88 mcg tablet 88 mcg PO DAILYBB 06/04/21 06/10/21 (Synthroid) losartan 100 1 tab PO QAM 06/04/21 06/10/21 mg-hydrochlorothiazide 25 mg tablet (Hyzaar) metoprolol tartrate 100 mg tablet 100 mg PO BID 06/04/21 06/10/21 (Lopressor) Previous Rx's Medication Instructions Recorded isosorbide mononitrate 60 mg 60 mg PO QAM #90 tab 09/26/20 tablet,extended release 24 hr rabeprazole 20 mg tablet,delayed 20 mg PO QAM #180 tab 11/20/20 release (AcipHex) isosorbide mononitrate 30 mg 30 mg PO QAM #90 tab 01/14/21 tablet,extended release 24 hr hydralazine 10 mg tablet 10 mg PO TID #270 tab 02/18/21 metoprolol tartrate 25 mg tablet 25 mg PO BID #180 tab 04/12/21 ciprofloxacin HCl 500 mg tablet 500 mg PO DAILY 5 Days #5 tab 06/07/21 (Cipro) Results & Data (ED) Vital Signs Vital Signs - 24 hr 06/10/21 10:01 06/10/21 10:04 06/10/21 10:24 Temperature 36.6 C Temperature Source Oral Oral Pulse Rate 71 71 Pulse Rate from SpO2 Sensor 71 Respiratory Rate 18 19 Respiratory Effort / Characteristics Non-Labored Respiratory Depth Normal Respiratory Pattern Regular Blood Pressure 195/72 H 195/72 H Blood Pressure Mean 113 113 Blood Pressure Position Sitting Pulse Oximetry 97 96 Oxygen Delivery Method Room Air Room Air Sepsis Recent Fever Within 48 Hours No Sepsis New/Unexplained Change in Mental Status No Sepsis Action Taken by Nursing No Action Required 06/10/21 11:03 06/10/21 11:31 06/10/21 12:01 Temperature Temperature Source Pulse Rate 65 61 65 Pulse Rate from SpO2 Sensor 66 62 64 Respiratory Rate 22 19 21 Respiratory Effort / Characteristics Respiratory Depth Respiratory Pattern Blood Pressure 202/68 H 197/66 H Blood Pressure Mean 112 109 Blood Pressure Position Pulse Oximetry 97 97 98 Oxygen Delivery Method Sepsis Recent Fever Within 48 Hours Sepsis New/Unexplained Change in Mental Status Sepsis Action Taken by [facility] Medications Current Medication List: was personally reviewed by me Laboratory Data Attestation: I reviewed the patient's lab results. Result diagrams: 06/10/21 10:39 06/10/21 10:39 Lab Results 06/10/21 06/10/21 06/10/21 Range/Units 10:26 10:37 10:39 WBC (4.8-10.8) K/uL RBC (4.2-5.4) M/uL Hgb (12.0-16.0) g/dL POC Hgb 11.6 L (12.0-16.0) g/dl Hct (37-47) % POC Hct 34 L (37-47) % MCV (80-100) fL MCH (25-34) pg MCHC (32-36) g/dL RDW Std Deviation (36.4-46.3) fL RDW Coeff of Michael (11.5-14.5) % Plt Count (130-400) K/uL MPV (7.4-10.4) fL Immature Gran % (Auto) % Neut % (Auto) % Lymph % (Auto) % Gaines % (Auto) % Eos % (Auto) % Baso % (Auto) % Neut # (Auto) (1.4-6.5) K/uL Lymph # (Auto) (1.2-3.4) K/uL Gaines # (Auto) (0.11-0.59) K/uL Eos # (Auto) (0-0.5) K/uL Baso # (Auto) (0-0.2) K/uL Immature Gran # (Auto) (0.00-0.02) K/uL PT (9.0-12.0) Seconds INR (0.9-1.1) APTT (21.0-31.0) Seconds PTT Ratio POC Sodium 134 L (135-144) mmol/L Sodium (136-145) mmol/L POC Potassium 4.3 (3.3-5.0) mmol/L Potassium (3.5-5.1) mmol/L POC Chloride 104 (101-112) mmol/L Chloride (98-107) mmol/L Carbon Dioxide (21-32) mmol/L POC Total CO2 19 L (24-31) mmol/L Anion Gap (3-11) POC Anion Gap 17.0 (16-25) mmol/L POC BUN 57 H (7-18) mg/dl BUN (7-18) mg/dl Creatinine (0.6-1.2) mg/dl POC Creatinine 3.0 H (0.6-1.3) mg/dl Est Cr Clr Drug Dosing ml/min Est GFR ( Amer) ml/min Est GFR (Non-Af Amer) ml/min BUN/Creatinine Ratio (10-20) Glucose (70-99) mg/dl POC Glucose 62 L* (70-99) mg/dl POC Glucose (other) 63 L* (70-99) mg/dl Calcium (8.5-10.1) mg/dl POC Ioniz Calcium Jeanette 0.85 L (1.12-1.32) mmol/l Magnesium (1.8-2.4) mg/dl Total Bilirubin (0.2-1) mg/dl AST (15-37) U/L ALT (12-78) U/L Alkaline Phosphatase (45-117) U/L Troponin I (0-0.045) ng/ml Total Protein (6.4-8.2) gm/dl Albumin (3.4-5.0) gm/dl Globulin (2.5-4.0) gm/dl Albumin/Globulin Ratio (0.9-2) Urine Color Urine Appearance (Clear) Urine pH (4.5-7.5) Ur Specific Lomira (1.000-1.030) Urine Protein (Negative) Urine Glucose (UA) (Negative) Urine Ketones (Negative) Urine Blood (Negative) Urine Nitrite (Negative) Urine Bilirubin (Negative) Urine Urobilinogen (Negative) Ur Leukocyte Esterase (Negative) Urine WBC (Auto) (0-5) /hpf Urine RBC (Auto) (0-4) /hpf U Hyaline Cast (Auto) (0-5) /lpf U Epithel Cells (Auto) (0-5) /lpf Urine Bacteria (Auto) (Negative) Digoxin (0.8-2.0) ng/ml COVID-19 Eval Order SARS-CoV-2 (PCR) (Negative) Blood Type O Positive Antibody Screen NEGATIVE 06/10/21 06/10/21 06/10/21 Range/Units 10:39 10:39 10:39 WBC 6.60 (4.8-10.8) K/uL RBC 3.79 L (4.2-5.4) M/uL Hgb 12.3 (12.0-16.0) g/dL POC Hgb (12.0-16.0) g/dl Hct 35.7 L (37-47) % POC Hct (37-47) % MCV 94.2 (80-100) fL MCH 32.5 (25-34) pg MCHC 34.5 (32-36) g/dL RDW Std Deviation 46.2 (36.4-46.3) fL RDW Coeff of Michael 13.4 (11.5-14.5) % Plt Count 210 (130-400) K/uL MPV 10.7 H (7.4-10.4) fL Immature Gran % (Auto) 0.3 % Neut % (Auto) 80.8 % Lymph % (Auto) 10.8 % Gaines % (Auto) 7.9 % Eos % (Auto) 0.0 % Baso % (Auto) 0.2 % Neut # (Auto) 5.34 (1.4-6.5) K/uL Lymph # (Auto) 0.71 L (1.2-3.4) K/uL Gaines # (Auto) 0.52 (0.11-0.59) K/uL Eos # (Auto) 0.00 (0-0.5) K/uL Baso # (Auto) 0.01 (0-0.2) K/uL Immature Gran # (Auto) 0.02 (0.00-0.02) K/uL PT 10.1 (9.0-12.0) Seconds INR 1.0 (0.9-1.1) APTT 36.0 H (21.0-31.0) Seconds PTT Ratio 1.4 POC Sodium (135-144) mmol/L Sodium 134 L (136-145) mmol/L POC Potassium (3.3-5.0) mmol/L Potassium 3.6 (3.5-5.1) mmol/L POC Chloride (101-112) mmol/L Chloride 104 (98-107) mmol/L Carbon Dioxide 19 L (21-32) mmol/L POC Total CO2 (24-31) mmol/L Anion Gap 10.0 (3-11) POC Anion Gap (16-25) mmol/L POC BUN (7-18) mg/dl BUN 51 H (7-18) mg/dl Creatinine 2.65 H (0.6-1.2) mg/dl POC Creatinine (0.6-1.3) mg/dl Est Cr Clr Drug Dosing 14.3 ml/min Est GFR ( Amer) 18.7 ml/min Est GFR (Non-Af Amer) 16.1 ml/min BUN/Creatinine Ratio 19.2 (10-20) Glucose 58 L (70-99) mg/dl POC Glucose (70-99) mg/dl POC Glucose (other) (70-99) mg/dl Calcium 7.7 L (8.5-10.1) mg/dl POC Ioniz Calcium Jeanette (1.12-1.32) mmol/l Magnesium 1.8 (1.8-2.4) mg/dl Total Bilirubin 0.2 (0.2-1) mg/dl AST 41 H (15-37) U/L ALT 30 (12-78) U/L Alkaline Phosphatase 88 (45-117) U/L Troponin I 0.016 (0-0.045) ng/ml Total Protein 8.0 (6.4-8.2) gm/dl Albumin 3.3 L (3.4-5.0) gm/dl Globulin 4.7 H (2.5-4.0) gm/dl Albumin/Globulin Ratio 0.7 L (0.9-2) Urine Color Urine Appearance (Clear) Urine pH (4.5-7.5) Ur Specific Lomira (1.000-1.030) Urine Protein (Negative) Urine Glucose (UA) (Negative) Urine Ketones (Negative) Urine Blood (Negative) Urine Nitrite (Negative) Urine Bilirubin (Negative) Urine Urobilinogen (Negative) Ur Leukocyte Esterase (Negative) Urine WBC (Auto) (0-5) /hpf Urine RBC (Auto) (0-4) /hpf U Hyaline Cast (Auto) (0-5) /lpf U Epithel Cells (Auto) (0-5) /lpf Urine Bacteria (Auto) (Negative) Digoxin (0.8-2.0) ng/ml COVID-19 Eval Order SARS-CoV-2 (PCR) (Negative) Blood Type Antibody Screen 06/10/21 06/10/21 06/10/21 Range/Units 10:39 10:56 11:24 WBC (4.8-10.8) K/uL RBC (4.2-5.4) M/uL Hgb (12.0-16.0) g/dL POC Hgb (12.0-16.0) g/dl Hct (37-47) % POC Hct (37-47) % MCV (80-100) fL MCH (25-34) pg MCHC (32-36) g/dL RDW Std Deviation (36.4-46.3) fL RDW Coeff of Michael (11.5-14.5) % Plt Count (130-400) K/uL MPV (7.4-10.4) fL Immature Gran % (Auto) % Neut % (Auto) % Lymph % (Auto) % Gaines % (Auto) % Eos % (Auto) % Baso % (Auto) % Neut # (Auto) (1.4-6.5) K/uL Lymph # (Auto) (1.2-3.4) K/uL Gaines # (Auto) (0.11-0.59) K/uL Eos # (Auto) (0-0.5) K/uL Baso # (Auto) (0-0.2) K/uL Immature Gran # (Auto) (0.00-0.02) K/uL PT (9.0-12.0) Seconds INR (0.9-1.1) APTT (21.0-31.0) Seconds PTT Ratio POC Sodium (135-144) mmol/L Sodium (136-145) mmol/L POC Potassium (3.3-5.0) mmol/L Potassium (3.5-5.1) mmol/L POC Chloride (101-112) mmol/L Chloride (98-107) mmol/L Carbon Dioxide (21-32) mmol/L POC Total CO2 (24-31) mmol/L Anion Gap (3-11) POC Anion Gap (16-25) mmol/L POC BUN (7-18) mg/dl BUN (7-18) mg/dl Creatinine (0.6-1.2) mg/dl POC Creatinine (0.6-1.3) mg/dl Est Cr Clr Drug Dosing ml/min Est GFR ( Amer) ml/min Est GFR (Non-Af Amer) ml/min BUN/Creatinine Ratio (10-20) Glucose (70-99) mg/dl POC Glucose 166 H 130 H (70-99) mg/dl POC Glucose (other) (70-99) mg/dl Calcium (8.5-10.1) mg/dl POC Ioniz Calcium Jeanette (1.12-1.32) mmol/l Magnesium (1.8-2.4) mg/dl Total Bilirubin (0.2-1) mg/dl AST (15-37) U/L ALT (12-78) U/L Alkaline Phosphatase (45-117) U/L Troponin I (0-0.045) ng/ml Total Protein (6.4-8.2) gm/dl Albumin (3.4-5.0) gm/dl Globulin (2.5-4.0) gm/dl Albumin/Globulin Ratio (0.9-2) Urine Color Urine Appearance (Clear) Urine pH (4.5-7.5) Ur Specific Lomira (1.000-1.030) Urine Protein (Negative) Urine Glucose (UA) (Negative) Urine Ketones (Negative) Urine Blood (Negative) Urine Nitrite (Negative) Urine Bilirubin (Negative) Urine Urobilinogen (Negative) Ur Leukocyte Esterase (Negative) Urine WBC (Auto) (0-5) /hpf Urine RBC (Auto) (0-4) /hpf U Hyaline Cast (Auto) (0-5) /lpf U Epithel Cells (Auto) (0-5) /lpf Urine Bacteria (Auto) (Negative) Digoxin 0.9 (0.8-2.0) ng/ml COVID-19 Eval Order SARS-CoV-2 (PCR) (Negative) Blood Type Antibody Screen 06/10/21 06/10/21 06/10/21 Range/Units 11:25 11:30 11:30 WBC (4.8-10.8) K/uL RBC (4.2-5.4) M/uL Hgb (12.0-16.0) g/dL POC Hgb (12.0-16.0) g/dl Hct (37-47) % POC Hct (37-47) % MCV (80-100) fL MCH (25-34) pg MCHC (32-36) g/dL RDW Std Deviation (36.4-46.3) fL RDW Coeff of Michael (11.5-14.5) % Plt Count (130-400) K/uL MPV (7.4-10.4) fL Immature Gran % (Auto) % Neut % (Auto) % Lymph % (Auto) % Gaines % (Auto) % Eos % (Auto) % Baso % (Auto) % Neut # (Auto) (1.4-6.5) K/uL Lymph # (Auto) (1.2-3.4) K/uL Gaines # (Auto) (0.11-0.59) K/uL Eos # (Auto) (0-0.5) K/uL Baso # (Auto) (0-0.2) K/uL Immature Gran # (Auto) (0.00-0.02) K/uL PT (9.0-12.0) Seconds INR (0.9-1.1) APTT (21.0-31.0) Seconds PTT Ratio POC Sodium (135-144) mmol/L Sodium (136-145) mmol/L POC Potassium (3.3-5.0) mmol/L Potassium (3.5-5.1) mmol/L POC Chloride (101-112) mmol/L Chloride (98-107) mmol/L Carbon Dioxide (21-32) mmol/L POC Total CO2 (24-31) mmol/L Anion Gap (3-11) POC Anion Gap (16-25) mmol/L POC BUN (7-18) mg/dl BUN (7-18) mg/dl Creatinine (0.6-1.2) mg/dl POC Creatinine (0.6-1.3) mg/dl Est Cr Clr Drug Dosing ml/min Est GFR ( Amer) ml/min Est GFR (Non-Af Amer) ml/min BUN/Creatinine Ratio (10-20) Glucose (70-99) mg/dl POC Glucose (70-99) mg/dl POC Glucose (other) (70-99) mg/dl Calcium (8.5-10.1) mg/dl POC Ioniz Calcium Jeanette (1.12-1.32) mmol/l Magnesium (1.8-2.4) mg/dl Total Bilirubin (0.2-1) mg/dl AST (15-37) U/L ALT (12-78) U/L Alkaline Phosphatase (45-117) U/L Troponin I (0-0.045) ng/ml Total Protein (6.4-8.2) gm/dl Albumin (3.4-5.0) gm/dl Globulin (2.5-4.0) gm/dl Albumin/Globulin Ratio (0.9-2) Urine Color Yellow Urine Appearance Clear (Clear) Urine pH 5.5 (4.5-7.5) Ur Specific Lomira 1.008 (1.000-1.030) Urine Protein 2+ H (Negative) Urine Glucose (UA) Negative (Negative) Urine Ketones Negative (Negative) Urine Blood Trace H (Negative) Urine Nitrite Positive A (Negative) Urine Bilirubin Negative (Negative) Urine Urobilinogen Negative (Negative) Ur Leukocyte Esterase 1+ H (Negative) Urine WBC (Auto) >30 H (0-5) /hpf Urine RBC (Auto) 5-10 H (0-4) /hpf U Hyaline Cast (Auto) 1-5 (0-5) /lpf U Epithel Cells (Auto) 0-5 (0-5) /lpf Urine Bacteria (Auto) 2+ H (Negative) Digoxin (0.8-2.0) ng/ml COVID-19 Eval Order Covid19 at [facility] SARS-CoV-2 (PCR) POSITIVE A* (Negative) Blood Type Antibody Screen Administered Medications Digoxin (Digoxin 0.125 Mg Tab) 0.125 mg PO [id number] [facility] Stop: 07/10/21 15:59 Last Admin: 06/10/21 17:09 Dose: 0.125 mg Documented by: [id number] Hydralazine HCl (Hydralazine 10 Mg Tab) 10 mg PO TID [facility] Stop: 07/10/21 14:27 Last Admin: 06/10/21 15:00 Dose: 10 mg Documented by: [id number] Sodium Chloride (Nss 1000ml) 1,000 mls @ 80 mls/hr IV .[id number] [facility] Stop: 06/11/21 02:57 Last Admin: 06/10/21 14:40 Dose: 80 mls/hr Documented by: [id number] Ceftriaxone Sodium 2,000 mg/ (Dextrose) 70 mls @ 100 mls/hr IV Q24H [facility]; Protocol Stop: 06/20/21 15:59 Last Admin: 06/10/21 17:09 Dose: 100 mls/hr Documented by: [id number] Insulin Aspart (Insulin Aspart 100 Units/Ml 3 Ml Pen) 0 units SC ACHS [facility] Stop: 07/10/21 16:29 Last Admin: 06/10/21 17:08 Dose: 4 units Documented by: [id number] Cosigned by: [id number] Insulin Glargine (Insulin Glargine Solostar 100 Units/Ml 3 Ml Pen) 0 units SC DAILY@1800 [facility]; Protocol Stop: 07/10/21 17:59 Last Admin: 06/10/21 17:08 Dose: 25 units Documented by: [id number] Cosigned by: [id number] Discontinued Medications Dextrose (Dextrose 50% 50 Ml Syringe) Confirm Administered Dose 50 ml IV .STK-MED ONE Stop: 06/10/21 10:33 Last Admin: 06/10/21 10:51 Dose: Not Given Documented by: [id number] Dextrose (Dextrose 50% 50 Ml Syringe) 25 ml IV NOW ONE Stop: 06/10/21 10:34 Last Admin: 06/10/21 10:48 Dose: 25 ml Documented by: [id number] Glucose (Glucose 40% Gel 15 Gm Tube) Confirm Administered Dose 15 gm PO .STK-MED ONE Stop: 06/10/21 10:33 Last Admin: 06/10/21 10:51 Dose: Not Given Documented by: [id number] Hydralazine HCl (Hydralazine Hcl 20 Mg/Ml Vial) 10 mg IV NOW STA Stop: 06/10/21 11:43 Last Admin: 06/10/21 11:52 Dose: 10 mg Documented by: [id number] Sodium Chloride (Nss 1000ml) 500 mls @ 999 mls/hr IV .Q31M ONE Stop: 06/10/21 11:08 Last Infusion: 06/10/21 11:43 Dose: 0 mls/hr Documented by: [id number] Admin: 06/10/21 10:52 Dose: 999 mls/hr Documented by: [id number] Dextrose/Sodium Chloride (D5w And 1/2nss) 1,000 mls @ 100 mls/hr IV .Q10H STA Stop: 06/10/21 21:33 Last Admin: 06/10/21 11:51 Dose: 100 mls/hr Documented by: [id number] Ioversol (Optiray 320 125ml) 120 ml IV ONCE ONE Stop: 06/10/21 10:05 Last Admin: 06/10/21 10:06 Dose: 120 ml Documented by: [id number] Miscellaneous Information (Pharmacy Glycemic Mgmt Consult) 1 ea N/A NOW STA; Protocol Stop: 06/10/21 12:13 Last Admin: 06/10/21 15:33 Dose: 1 ea Documented by: [id number] Data Radiologist's Impression: Head CT 06/10/21 09:[address] DOSE: 788.63 mGycm HISTORY: Confusion. Weakness. speech issue TECHNIQUE: Multiaxial CT images of the head were performed without the use of intravenous contrast. Automated exposure control was utilized for this study. A dose lowering technique was utilized adhering to the principles of ALARA. Comparison: Head CT 06/04/2021. Findings: The paranasal sinuses and mastoid air cells are clear. The calvarium and skull base are intact. There is no mass, hematoma, midline shift, acute infarct. White matter hypodensity is nonspecific but suggestive of microvascular ischemic change. The ventricles and sulci demonstrate mild age-related involutional changes. Impression: No significant change compared to the prior study. No acute intracranial abnormality. ACT 112: Negative or not required by law. Electronically signed by: Umang Martino M.D. 06/10/2021 10:21 AM Chest X-Ray 06/10/21 10:04 XR chest 1V portable HISTORY: Stroke Like Symptoms COMPARISON: Chest 06/04/2021. FINDINGS: The cardiac silhouette remains borderline enlarged. The lungs are clear. No pleural effusions. No pneumothorax. Degenerative changes again noted within the shoulders. IMPRESSION: No significant change compared to the prior study. No acute process. ACT 112: Negative or not required by law. Electronically signed by: Umang Martino M.D. 06/10/2021 11:57 AM Discharge Plan Visit Data Chief Complaint: Stroke Alert ED Provider: Ridge Ayala Discharge Problem: Speech abnormality, Stroke-like symptoms, Acute UTI, Hypoglycemia Patient Disposition: Admitted As Inpatient Condition: Fair Discharge Instructions Interventions: ED Discharge Assessment Last Done: 06/10/21 14:00
[2021-06-10] MEDS ORDERED: GLUCOSE 40% GEL 15 GM TUBE PO ONE (10:32)
[2021-06-10] MEDS ORDERED: DEXTROSE 50% 50 ML SYRINGE IV ONE ×2 (10:32→10:33)
[2021-06-10] MEDS ORDERED: SODIUM CHLORIDE 0.9% 1000ML 500 ML IV ONE (10:38)
[2021-06-10 10:47] LABS: Basophils # (auto) 0.01 K/uL (0-0.2); Basophils % (auto) 0.2 %; Hematocrit (blood only) 35.7 % (37-47); Hemoglobin 12.3 g/dL (12.0-16.0); Immature Granulocytes # (auto) 0.02 K/uL (0.00-0.02); Immature Granulocytes % (auto) 0.3 %; Lymphocytes # (auto) 0.71 K/uL (1.2-3.4); Lymphocytes % (auto) 10.8 %; Mean Corpuscular Hemoglobin 32.5 pg (25-34); Mean Corpuscular Hgb Conc 34.5 g/dL (32-36); Mean Corpuscular Volume 94.2 fL (80-100); Mean Platelet Volume 10.7 fL (7.4-10.4); Monocytes # (auto) 0.52 K/uL (0.11-0.59); Monocytes % (auto) 7.9 %; Neutrophils # (auto) 5.34 K/uL (1.4-6.5); Neutrophils % (auto) 80.8 %; Platelet Count 210 K/uL (130-400); RDW Coefficient of Variation 13.4 % (11.5-14.5); RDW Standard Deviation 46.2 fL (36.4-46.3); Red Blood Count 3.79 M/uL (4.2-5.4)
[2021-06-10 10:50] LABS: iSTAT Hemoglobin 11.6 g/dl (12.0-16.0); iSTAT Ionized Calcium 0.85 mmol/l (1.12-1.32); iSTAT Potassium 4.3 mmol/L (3.3-5.0)
[2021-06-10 11:02] LABS: Partial Thromboplastin Ratio 1.4; Prothrombin Time 10.1 Seconds (9.0-12.0)
[2021-06-10 11:05] LABS: Albumin Level 3.3 gm/dl (3.4-5.0); BUN Creatinine Ratio 19.2 (10-20); Calcium 7.7 mg/dl (8.5-10.1); Creatinine Clr Calc Pharmacy 14.3 ml/min; Est GFR (African American) 18.7 ml/min; Est GFR (Non-African American) 16.1 ml/min; Magnesium 1.8 mg/dl (1.8-2.4); Potassium 3.6 mmol/L (3.5-5.1)
[2021-06-10 11:10] LABS: Albumin Globulin Ratio 0.7 (0.9-2); Bilirubin,Total 0.2 mg/dl (0.2-1); Globulin 4.7 gm/dl (2.5-4.0); Troponin I 0.016 ng/ml (0-0.045)
[2021-06-10] MEDS ORDERED: D5W AND 1/2NSS 1,000 ML IV STA (11:34)
[2021-06-10] MEDS ORDERED: hydrALAZINE HCL 20 MG/ML VIAL IV STA (11:42)
--- NOTE | 2021-06-10 11:58 | XRay Report ---
XR chest 1V portable HISTORY: Stroke Like Symptoms COMPARISON: Chest 06/04/2021. FINDINGS: The cardiac silhouette remains borderline enlarged. The lungs are clear. No pleural effusio ns. No pneumothorax. Degenerative changes again noted within the shoulders. IMPRESSION: No significant change compared to the prior study. No acute process. ACT 112: Negative or not required by law. Electronically signed by: Umang Martino M.D. 06/10/2021 11:57 AM
[2021-06-10 12:03] LABS: Appearance Urine Clear (Clear); Bacteria Urine Automated 2+ (Negative); Bilirubin Urine Negative (Negative); Blood Urine Trace (Negative); Color Urine Yellow; Epithelial Cell Urine Auto 0-5 /lpf (0-5); Glucose Urine UA Negative (Negative); Ketones Urine Negative (Negative); Leukocyte Esterase Urine 1+ (Negative); Nitrite Urine Positive (Negative); Protein Urine 2+ (Negative); Specific Gravity Urine 1.008 (1.000-1.030); Urobilinogen Urine Negative (Negative); WBC Urine Automated >30 /hpf (0-5); pH Urine 5.5 (4.5-7.5)
[2021-06-10] MEDS ORDERED: PHARMACY GLYCEMIC MGMT CONSULT STA (12:12)
[2021-06-10] MEDS ORDERED: PHARMACY GLYCEMIC MGMT CONSULT PRN (12:12)
--- NOTE | 2021-06-10 12:58 | History & Physical Report ---
Date of Service June 10, 2021 Assessment & Plan (1) Stroke-like symptoms: Plan: Patient presented with strokelike symptoms mostly speech affected resolved with dextrose however patient is shivering and does also have a baseline tremor. Completing stroke evaluation is recommended with angiography of his cerebral circulation and MRI of her brain. We'll also order an echocardiogram as the last echocardiogram for TIA work-up was January 2020. We'll hold off on further n eurological evaluation unless the other concerns for presentation with metabolic encephalopathy did not bear out. This is that the patient has a prehospital E. coli UTI which was resistant to Cipro for which she was prescribed is outpatient treatment for her UTI It is noteworthy the patient has previously had a history of subdural hematoma subsequent to falling at home in 2019 (2) Chronic kidney disease, stage 3: Plan: Acute kidney injury with chronic kidney disease stage III. Patient will have her ARB held she'll be given a liter of saline repeating labs in the morning hypertension control in lieu of the ARB and hydrochlorothiazide will be hydralazine as needed (3) COVID: Plan: Pt found to be asymptomatic COVID +. No symptoms or hypoxia, will have on isolation. (4) Dyslipidemia: Plan: Patient has history of peripheral artery disease and dyslipidemia treated with atorvastatin and aspirin these are continued at this time (5) Diabetes mellitus, type II: Plan: Patient typically taking glimepiride. This is on hold she was mildly hypoglycemic this morning sliding scale insulin will be employed following her trends (6) Atrial fibrillation: Plan: Patient appears to be in sinus rhythm she is anticoagulated with apixaban which will be continued metoprolol will be continued also for atrial fibrillation. (7) Hypertension: Plan: She typically uses metoprolol and losartan and hydrochlorothiazide. The latter is held given the concern for acute kidney injury hydralazine will be augmented as needed carefully to avoid hypotension in the stroke work-up patient (8) Anemia: Plan: Patient has a history of anemia her hemoglobin is stable at this time (9) Chronic gastritis: Plan: Patient continues on a PPI with pharmacy substitute for her home med at this time (10) LUZMA (obstructive sleep apnea): Plan: Poorly patient does not wear device will be on telemetry with hypoxia monitoring (11) DVT prophylaxis: Plan: apixaban use for DVT prevention History of Present Illness Primary Care Provider: Bro Neil, YANET 81-year-old female brought in as a stroke alert. Last time normal was managed with the bed last evening. When her checked on her this morning she had decreased responsiveness and cannot speak properly. She was brought in by EMS under stroke alert. Her blood sugar was in the 70s per EMS was in the 60s here initial CT scan was unremarkable she is found to have acute kidney injury with elevation of her creatinine she was given glucose with a low sugar of 60 and her symptoms improved. There were no acute stroke findings found on CT head however since he is chronically on apixaban and her last time known well exceeded the time threshold thrombolytic agents were contraindicated after discussion with the stroke center. When I saw the patient she was speaking more fluently. She was shivering and cold. She related the events of her urinary tract infection. I looked into the records and found that she had an E. coli resistant to Cipro for which she was prescribed. My concern is this could be an infectious encephalopathy however we'll continue her stroke work-up. The neurology telestroke center did recommend evaluating the angiography of her brain which is on currently pending an MRI of her brain will be ordered. A repeat urinalysis and culture will be sent as well as blood cultures Currently the patient is resting comfortably she is speaking fluently I do believe she likely will pass a bedside speech eval will order her a diet will get therapeutic evaluations. Her is at the bedside all questions were answered they confirm she is a full code. Pt has not had pulmonary symptoms, cough, diarrhea or loss of taste or smell, not hypoxic, incidentally found to be COVID + --> isolation Allergies Allergy/AdvReac Type Severity Reaction Status Date / Time adhesive Allergy Mild red/blistered Verified 06/10/21 10:45 skin latex Allergy Mild CONTACT Verified 06/10/21 10:45 DERMATITIS acetaminophen [From Percocet] Allergy Unknown Unknown Verified 06/10/21 10:45 carbidopa Allergy Unknown Unknown Verified 06/10/21 10:45 carvedilol Allergy Unknown pt unsure, Verified 06/10/21 10:45 listed prior gabapentin Allergy Unknown Unknown Verified 06/10/21 10:45 ranitidine [From Zantac] Allergy Unknown Unknown Verified 06/10/21 10:45 omeprazole AdvReac Intermediate HALLUCINATI Verified 06/10/21 10:45 ONS oxycodone AdvReac Intermediate itching Verified 06/10/21 10:45 phenobarbital AdvReac Intermediate HALLUCINATI Verified 06/10/21 10:45 ONS cephalexin AdvReac Mild DIARRHEA Verified 06/10/21 10:45 fentanyl AdvReac Mild altered Verified 06/10/21 10:45 mental status levofloxacin AdvReac Mild DIARRHEA Verified 06/10/21 10:45 meperidine AdvReac Mild HEADACHES Verified 06/10/21 10:45 metformin AdvReac Mild DIARRHEA Verified 06/10/21 10:45 Sulfa (Sulfonamide AdvReac Mild DIARRHEA Verified 06/10/21 10:45 Antibiotics) fluoxetine AdvReac Unknown Unknown Verified 06/10/21 10:45 Home Medications Medication Instructions Recorded Confirmed Type aspirin 81 mg tablet,delayed 81 mg PO HS 07/21/18 06/10/21 History release (Aspirin Low Dose) ascorbic acid (vitamin C) 500 mg 500 mg PO QAM 02/23/19 06/10/21 History tablet (Vitamin C) acetaminophen 325 mg tablet 650 mg PO HS tab 07/20/19 06/10/21 History (Tylenol) cholecalciferol (vitamin D3) 25 1,000 units PO QAM cap 07/20/19 06/10/21 History mcg (1,000 unit) capsule (Vitamin D3) isosorbide mononitrate 60 mg 60 mg PO QAM #90 tab 09/26/20 06/10/21 Rx tablet,extended release 24 hr rabeprazole 20 mg tablet,delayed 20 mg PO QAM #180 tab 11/20/20 06/10/21 Rx release (AcipHex) multivitamin (Daily Multi-Vitamin) 1 tab PO QAM 12/12/20 06/10/21 History cyclosporine 0.05 % eye drops in a 1 drp OPHTHALMIC (EYE) BID 12/13/20 06/10/21 History dropperette (Restasis) isosorbide mononitrate 30 mg 30 mg PO QAM #90 tab 01/14/21 06/10/21 Rx tablet,extended release 24 hr hydralazine 10 mg tablet 10 mg PO TID #270 tab 02/18/21 06/10/21 Rx metoprolol tartrate 25 mg tablet 25 mg PO BID #180 tab 04/12/21 06/10/21 Rx insulin glargine 100 unit/mL (3 48 unit SQ QDD ml 05/24/21 06/10/21 History mL) subcutaneous pen (Lantus Solostar U-100 Insulin) apixaban 2.5 mg tablet (Eliquis) 2.5 mg PO BID 06/04/21 06/10/21 History atorvastatin 40 mg tablet (Lipitor) 40 mg PO QAM 06/04/21 06/10/21 History digoxin 125 mcg (0.125 mg) tablet 125 mcg PO 3XWK 06/04/21 06/10/21 History (Lanoxin) diltiazem HCl 120 mg capsule,24 120 mg PO BID 06/04/21 06/10/21 History hr,extended release (Tiazac) duloxetine 30 mg capsule,delayed 30 mg PO QAM 06/04/21 06/10/21 History release (Cymbalta) glimepiride 2 mg tablet (Amaryl) 2 mg PO BID 06/04/21 06/10/21 History levetiracetam 250 mg tablet 250 mg PO BID 06/04/21 06/10/21 History (Keppra) levothyroxine 88 mcg tablet 88 mcg PO DAILYBB 06/04/21 06/10/21 History (Synthroid) losartan 100 1 tab PO QAM 06/04/21 06/10/21 History mg-hydrochlorothiazide 25 mg tablet (Hyzaar) metoprolol tartrate 100 mg tablet 100 mg PO BID 06/04/21 06/10/21 History (Lopressor) ciprofloxacin HCl 500 mg tablet 500 mg PO DAILY 5 Days #5 tab 06/07/21 06/10/21 Rx (Cipro) Past Med/Surg History Medical History (Updated 06/10/21 @ 15:55 by Andrzej Obregon MD) Anxiety Atrial fibrillation Benign essential tremor Bowel perforation Chronic gastritis Chronic kidney disease, stage 3 Chronic osteoarthritis Closed head injury Depression Diabetes mellitus, type II Diverticular disease HX DIVERTICULITIS PER RECORDS Fall GERD (gastroesophageal reflux disease) Hiatal hernia History of blood transfusion POST-OP ROBE History of palpitations HLD (hyperlipidemia) Hx of intestinal obstruction 50 YEARS AGO PER RECORDS Hypertension 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 H/O total thyroidectomy H/O: hysterectomy History of back surgery LUMBAR DISCECTOMY History of blepharoplasty History of bowel resection History of cardiac cath X2 TOTAL (10+ YEARS AGO)= NO STENTS History of herniorrhaphy VENTRAL HERNIA History of inguinal hernia repair X3 (CHILD) History of laryngoscopy REMOVAL OF POLYPS History of repair of hiatal hernia (~02/2019) History of repair of rotator cuff RIGHT X3, LEFT X 1 History of tubal ligation Hx of hand surgery LUMP REMOVED FROM RIGHT HAND Previous section X3 S/P appendectomy S/P carotid endarterectomy (~2011) RIGHT S/P cholecystectomy S/P hysterectomy (01/22/13) S/P lumpectomy of breast RIGHT Family History Son Family history of reaction to anesthesia SLOW TO WAKE Diabetes Brother Family history of diabetes mellitus Myocardial infarction Sister Family history of diabetes mellitus Mother Family history of diabetes mellitus Myocardial infarction Uncle Family hx of colon cancer X 3 Colorectal cancer Denies family history of Ovarian cancer Prostate cancer Breast cancer Social History Smoking Status: Never smoker Second Hand Exposure: Yes (as child); Hx Alcohol Use: No Hx Substance Use: No Preferred Language: Ukrainian Communication Ability: Effective Visual Impairment: No Limitations Hearing Ability: Normal Electronics Instructor Required: No Beliefs That Will Affect Care: None marital status: Current Living Situation: Spouse Current Living Situation Comment: with current occupational status: retired Feels Safe at Home: Yes Childhood Exposure to Second-Hand Smoke: Yes caffeine: Yes (Tea x 2 cups per day.) during the past year weight has: remained stable Dental Care, Regularly: Yes Physical Activity Frequency: Does not Exercise Seatbelt Use: always Sunscreen Use: Yes Assistive Devices: Walker Review of Systems Review of Systems: Mild distress and fatigue complains of feeling chilled no headache, no visual changes Initial concerns for limited speech improved after dextrose administration no chest pain, pressure or palpitations no shortness of breath, cough or wheezes no abdominal pain, nausea or vomiting, diarrhea or constipation Persistent dysuria and frequency no focal joint pain or swelling no back pain, CVA tenderness or radicular pain no bruising, bleeding or rashes no focal signs of weakness or numbness or altered sensation no complaints of anxiety or depression.. Physical Exam Physical Exam: The patient appeared well nourished and normally developed. She did have some shaking chills when I saw her Vital signs as documented. Head exam is normocephalic atraumatic Neck is without JVD, thyromegaly, or carotid bruits. Lungs are clear to auscultation, no focal loss of breath sounds Cardiac exam, Rhythm is regular.. No murmurs, rubs or gallops. Abdominal exam reveals normal bowel sounds, soft non tender, no masses Extremities are nonedematous and both pedal pulses are present Neurologic exam is alert and oriented, no focal loss of strength or sensation Skin is without bruises or rashes Psychologically is without concerns for anxiety or depression Results & Data Results & Data ([facility]) Vital Signs (Past 12 Hours) Vital Signs Temp Pulse Resp BP Pulse Ox 06/10/21 10:04 97.9 F 71 18 195/72 H [address] 06/10/21 09:[address] DOSE: 788.63 mGycm HISTORY: Confusion. Weakness. speech issue TECHNIQUE: Multiaxial CT images of the head were performed without the use of intravenous contrast. Automated exposure control was utilized for this study. A dose lowering technique was utilized adhering to the principles of ALARA. Comparison: Head CT 06/04/2021. Findings: The paranasal sinuses and mastoid air cells are clear. The calvarium and skull base are intact. There is no mass, hematoma, midline shift, acute infarct. White matter hypodensity is nonspecific but suggestive of microvascular ischemic change. The ventricles and sulci demonstrate mild age-related involutional changes. Impression: No significant change compared to the prior study. No acute intracranial abnormality. ACT 112: Negative or not required by law. Electronically signed by: Umang Martino M.D. 06/10/2021 10:21 AM Chest X-Ray 06/10/21 10:04 XR chest 1V portable HISTORY: Stroke Like Symptoms COMPARISON: Chest 06/04/2021. FINDINGS: The cardiac silhouette remains borderline enlarged. The lungs are clear. No pleural effusions. No pneumothorax. Degenerative changes again noted within the shoulders. IMPRESSION: No significant change compared to the prior study. No acute process. ACT 112: Negative or not required by law. Electronically signed by: Umang Martino M.D. 06/10/2021 11:57 AM ECG Additional Comments: Normal sinus rhythm some flattening of T waves laterally entheses normal troponin ( Code Status & VTE Plan VTE Prophylaxis Plan VTE Prophylaxis will be ordered: Yes PG Care Time/CCT Total # of Minutes Spent Total Time Spent with Patient: Total time spent is greater than 50% in coordination of care (as documented) at patient's floor/unit and/or counseling patient: Coding Level of Care Code INT OBSERVATION CARE 70M LVL 3 Diagnoses Stroke-like symptoms R29.90 Chronic kidney disease, stage 3 N18.3 Dyslipidemia E78.5 Diabetes mellitus, type II E11.9 Atrial fibrillation I48.0 Atrial fibrillation type: paroxysmal Hypertension I10 Hypertension type: unspecified Anemia D64.9 Chronic gastritis K29.50 LUZMA (obstructive sleep apnea) G47.33 DVT prophylaxis Z29.9 COVID U07.1 (1) Atrial fibrillation Atrial fibrillation type: paroxysmal Qualified Code(s): I48.0 - Paroxysmal atrial fibrillation (2) Hypertension Hypertension type: unspecified Qualified Code(s): I10 - Essential (primary) hypertension
[2021-06-10] MEDS ORDERED: PHARMACIST DISCHARGE MED REC CONSULT PRN (14:28)
[2021-06-10] MEDS ORDERED: POLYETHYLENE (MIRALAX) 17 GM PACK PO PRN (14:28)
[2021-06-10] MEDS ORDERED: CARBOHYDRATES FOR HYPOGLYCEMIA PO PRN (14:28)
[2021-06-10] MEDS ORDERED: GLUCOSE 10 TABS/TUBE PO PRN (14:28)
[2021-06-10] MEDS ORDERED: GLUCOSE 40% GEL 15 GM TUBE PO PRN (14:28)
[2021-06-10] MEDS ORDERED: ONDANSETRON INJ 2 MG/ML 2 ML VIAL IV PRN (14:28)
[2021-06-10] MEDS ORDERED: DEXTROSE 50% 50 ML SYRINGE IV PRN (14:28)
[2021-06-10] MEDS ORDERED: SODIUM CHLORIDE 0.9% 1000ML 1,000 ML IV SCH (14:28)
[2021-06-10] MEDS ORDERED: ACETAMINOPHEN 325 MG TAB PO PRN (14:28)
[2021-06-10] MEDS ORDERED: GLUCAGON FOR INJ 1 MG VIAL SQ PRN (14:28)
[2021-06-10] MEDS ORDERED: hydrALAZINE HCL 20 MG/ML VIAL IV PRN (14:28)
[2021-06-10] MEDS: hydrALAZINE 10 MG TAB PO SCH ×2 (15:00→21:04)
--- NOTE | 2021-06-10 15:05 | Electrocardiogram Report ---
Test Reason : Blood Pressure : / mmHG Vent. Rate : 066 BPM Atrial Rate : 066 BPM P-R Int : 156 ms QRS Dur : 084 ms QT Int : 386 ms P-R-T Axes : 096 -20 075 degrees QTc Int : 404 ms Normal sinus rhythm Diffuse Nonspecific T wave abnormality Nonspecific ST abnormality Anterolateral leads Abnormal ECG When compared with ECG of 04-JUN-2021 09:25, No significant change was found Confirmed by Rell Evans ([id number]) on 06/10/2021 3:05:31 PM Referred By: Confirmed By:Rell Evans
[2021-06-10] MEDS ORDERED: DIGOXIN 0.125 MG TAB PO SCH (16:00)
[2021-06-10] MEDS: INSULIN ASPART 100 UNITS/ML 3 ML PEN SC SCH ×2 (17:08→21:00)
[2021-06-10] MEDS: cefTRIAXone SODIUM 2,000 MG in DEXTROSE 5% 50 ML IV SCH (17:09)
[2021-06-10] MEDS ORDERED: INSULIN GLARGINE SOLOSTAR 100 UNITS/ML 3 ML PEN SC SCH (18:00)
[2021-06-10] MEDS: ACETAMINOPHEN 325 MG TAB PO SCH (21:00)
[2021-06-10] MEDS: METOPROLOL TARTRATE 100 MG TAB PO SCH (21:01)
[2021-06-10] MEDS: ASPIRIN 81 MG ECTAB PO SCH (21:02)
[2021-06-10] MEDS: levETIRAcetam 250 MG TAB PO SCH (21:02)
[2021-06-10] MEDS: APIXABAN 2.5 MG TAB PO SCH (21:02)
[2021-06-10] MEDS: dilTIAZem ER 120 MG CAPCR PO SCH (21:03)
[2021-06-10] MEDS: METOPROLOL TARTRATE 25 MG TAB PO SCH (21:03)
[2021-06-11] MEDS ORDERED: INSULIN ASPART 100 UNITS/ML 3 ML PEN SC SCH (02:00)
[2021-06-11] MEDS: LEVOTHYROXINE SODIUM 88 MCG TABLET PO SCH (06:18)
[2021-06-11 07:54] LABS: Hematocrit (blood only) 31.2 % (37-47); Hemoglobin 10.5 g/dL (12.0-16.0); Immature Granulocytes # (auto) 0.01 K/uL (0.00-0.02); Immature Granulocytes % (auto) 0.2 %; Lymphocytes # (auto) 0.63 K/uL (1.2-3.4); Lymphocytes % (auto) 13.2 %; Mean Corpuscular Hemoglobin 31.7 pg (25-34); Mean Corpuscular Hgb Conc 33.7 g/dL (32-36); Mean Corpuscular Volume 94.3 fL (80-100); Mean Platelet Volume 10.4 fL (7.4-10.4); Monocytes # (auto) 0.48 K/uL (0.11-0.59); Neutrophils # (auto) 3.67 K/uL (1.4-6.5); Neutrophils % (auto) 76.6 %; Platelet Count 190 K/uL (130-400); RDW Coefficient of Variation 13.4 % (11.5-14.5); RDW Standard Deviation 46.5 fL (36.4-46.3); Red Blood Count 3.31 M/uL (4.2-5.4); White Blood Count 4.79 K/uL (4.8-10.8)
[2021-06-11 08:28] LABS: BUN Creatinine Ratio 21.2 (10-20); Calcium 6.5 mg/dl (8.5-10.1); Est GFR (African American) 29.7 ml/min; Est GFR (Non-African American) 25.6 ml/min; Potassium 3.5 mmol/L (3.5-5.1)
--- NOTE | 2021-06-11 08:41 | Magnetic Resonance Report ---
MRI OF THE BRAIN WITHOUT CONTRAST CLINICAL HISTORY: Speech difficulty. Evaluate for acute infarct. COMPARISON STUDY: CT of the head June 10, 2021. MRI of the brain May 07, 2021. TECHNIQUE: Utilizing a 1.5 Bea magnet and dedicated coil, multiplanar, multiecho imaging of the bra in was performed without IV contrast. FINDINGS: There are no foci of restricted diffusion to suggest acute infarct. No acute intracranial h emorrhage, midline shift or mass effect is present. Ventricular system is stable. Basal cisterns are patent. No extra-axial collections are present. Flow-voids for the major intracranial vessels are pre sent. Numerous white matter T2 hyperintense foci are unchanged since MRI of May 07, 2021. No intracr anial masses are identified on this unenhanced exam. The appearance of the brain is unchanged. IMPRESSION: No acute intracranial findings. No change in appearance of the brain since MRI of April 172020. ACT 112: Negative or not required by law. Electronically signed by: Tariq Ortega M.D. 06/11/2021 8:39 AM
[2021-06-11] MEDS: INSULIN ASPART 100 UNITS/ML 3 ML PEN SC SCH ×4 (08:58→21:13)
[2021-06-11] MEDS: CHOLECALCIFEROL 1,000 UNITS 25 MCG TAB PO SCH (09:23)
[2021-06-11] MEDS: METOPROLOL TARTRATE 100 MG TAB PO SCH ×2 (09:23→20:28)
[2021-06-11] MEDS: ASCORBIC ACID 500 MG TAB PO SCH (09:23)
[2021-06-11] MEDS: DULoxetine HCL 30 MG CAP PO SCH (09:23)
[2021-06-11] MEDS: APIXABAN 2.5 MG TAB PO SCH ×2 (09:23→20:28)
[2021-06-11] MEDS: ISOSORBIDE MONO EXTENDED REL 60 MG TABCR PO SCH (09:23)
[2021-06-11] MEDS: ATORVASTATIN 40 MG TAB PO SCH (09:24)
[2021-06-11] MEDS: MULTIVITAMIN TAB PO SCH (09:24)
[2021-06-11] MEDS: PANTOprazole 40 MG TAB PO SCH (09:24)
[2021-06-11] MEDS: levETIRAcetam 250 MG TAB PO SCH ×2 (09:25→20:30)
[2021-06-11] MEDS: hydrALAZINE 10 MG TAB PO SCH ×3 (09:25→20:28)
[2021-06-11] MEDS: dilTIAZem ER 120 MG CAPCR PO SCH ×2 (09:25→20:28)
[2021-06-11] MEDS: METOPROLOL TARTRATE 25 MG TAB PO SCH ×2 (09:25→20:28)
[2021-06-11] MEDS: ISOSORBIDE MONO EXTENDED REL 30 MG TABCR PO SCH (09:26)
--- NOTE | 2021-06-11 09:50 | Hospitalist Progress Note ---
Date of Service June 11, 2021 Assessment & Plan (1) Stroke-like symptoms: Plan: Patient presented with strokelike symptoms mostly speech affected resolved with dextrose however patient is shivering and does also have a baseline tremor. Completing stroke evaluation is recommended with angiography of his cerebral circulation and MRI of her brain both been negative for acute stroke.. Echocardiogram will not be performed due to Covid status concerns for presentation with metabolic encephalopathy from hypoglycemia and a prehospital E. coli UTI which was resistant to Cipro for which she was prescribed is outpatient treatment for her UTI It is noteworthy the patient has previously had a history of subdural hematoma subsequent to falling at home in 2019 (2) Chronic kidney disease, stage 3: Plan: Acute kidney injury with chronic kidney disease stage III. Patient will have her ARB held she'll be given a liter of saline repeating labs in the morning hypertension control in lieu of the ARB and hydrochlorothiazide will be hydralazine as needed (3) COVID: Plan: Pt found to be asymptomatic COVID +. No symptoms or hypoxia, will have on isolation. Repeat Covid testing (4) Dyslipidemia: Plan: Patient has history of peripheral artery disease and dyslipidemia treated with atorvastatin and aspirin these are continued at this time (5) Diabetes mellitus, type II: Plan: Patient typically taking glimepiride. This is on hold she was mildly hypoglycemic this morning sliding scale insulin will be employed following her trends (6) Atrial fibrillation: Plan: Patient appears to be in sinus rhythm she is anticoagulated with apixaban which will be continued metoprolol will be continued also for atrial fibrillation. (7) Hypertension: Plan: She typically uses metoprolol and losartan and hydrochlorothiazide. The latter is held now the patient has had resolution of acute kidney injury (8) Anemia: Plan: Patient has a history of anemia her hemoglobin is stable at this time (9) Chronic gastritis: Plan: Patient continues on a PPI with pharmacy substitute for her home med at this time (10) LUZMA (obstructive sleep apnea): Plan: Poorly patient does not wear device will be on telemetry with hypoxia monitoring (11) DVT prophylaxis: Plan: apixaban use for DVT prevention Admission and Anticipated Discharge Date Admission Date: June 10, 2021 Subjective According to nursing staff patient had another hypoglycemic event associated with speech issues overnight however since that time she has been feeling much better and states that she is feeling much better. She likely is also improving because of treatment of multidrug-resistant UTI that was notified prior to admission and current admission urinalysis is pending. She continues to have no symptoms with her Covid status Review of Systems Review of Systems: Mild distress and fatigue complains of feeling chilled no headache, no visual changes Initial concerns for limited speech improved after dextrose administration no chest pain, pressure or palpitations no shortness of breath, cough or wheezes no abdominal pain, nausea or vomiting, diarrhea or constipation Persistent dysuria and frequency no focal joint pain or swelling no back pain, CVA tenderness or radicular pain no bruising, bleeding or rashes no focal signs of weakness or numbness or altered sensation no complaints of anxiety or depression.. Physical Exam Physical Exam: The patient appeared well nourished and normally developed. She did have some shaking chills when I saw her Vital signs as documented. Head exam is normocephalic atraumatic Neck is without JVD, thyromegaly, or carotid bruits. Lungs are clear to auscultation, no focal loss of breath sounds Cardiac exam, Rhythm is regular.. No murmurs, rubs or gallops. Abdominal exam reveals normal bowel sounds, soft non tender, no masses Extremities are nonedematous and both pedal pulses are present Neurologic exam is alert and oriented, no focal loss of strength or sensation Skin is without bruises or rashes Psychologically is without concerns for anxiety or depression Results & Data Results & Data ([facility]) Vital Signs (Past 12 Hours) Vital Signs Temp Pulse Pulse Resp BP Pulse Ox 06/11/21 08:38 99.5 F 72 22 172/71 H 100 06/11/21 03:33 97.9 F 78 20 121/77 94 06/10/21 23:00 65 06/10/21 22:24 97.9 F 67 20 166/79 H 96 PG Care Time/CCT Total # of Minutes Spent Total Time Spent with Patient: Total time spent is greater than 50% in coordination of care (as documented) at patient's floor/unit and/or counseling patient: Coding Level of Care Code 76590 Subseq Hosp Care Lvl 3 Diagnoses Stroke-like symptoms R29.90 Chronic kidney disease, stage 3 N18.3 COVID U07.1 Dyslipidemia E78.5 Diabetes mellitus, type II E11.9 Atrial fibrillation I48.0 Atrial fibrillation type: paroxysmal Hypertension I10 Hypertension type: unspecified Anemia D64.9 Chronic gastritis K29.50 LUZMA (obstructive sleep apnea) G47.33 DVT prophylaxis Z29.9 (1) Atrial fibrillation Atrial fibrillation type: paroxysmal Qualified Code(s): I48.0 - Paroxysmal atrial fibrillation (2) Hypertension Hypertension type: unspecified Qualified Code(s): I10 - Essential (primary) hypertension
[2021-06-11 10:20] LABS: Estimated Average Glucose 180 mg/dl; Hemoglobin A1C 7.9 % (4.5-5.6)
--- NOTE | 2021-06-11 14:49 | Pharmacy Report ---
Pharmacy Glycemic Short Note 2 - Date of Service June 11, 2021 - Glycemic Short BSG Results (Last 24 hours): 06/10/21 06/10/21 06/10/21 15:30 16:46 20:15 Glucose POC Glucose 117 H 173 H 95 06/10/21 06/10/21 06/10/21 22:38 22:41 22:59 Glucose POC Glucose 44 L* 46 L* 182 H 06/11/21 06/11/21 06/11/21 02:17 07:29 07:35 Glucose 108 H POC Glucose 218 H 117 H 06/11/21 11:24 Glucose POC Glucose 93 OUTPATIENT ANTIDIABETIC REGIMEN: * glimepiride 2 mg po bid, Lantus 48 units QDD * A1c 8.4% ASSESSMENT: * 81 year old female admitted with stroke like symptoms. Pharmacy consulted to help with glycemic management * BSGs 58-63 mg/dL on admission and given dextrose in ER - trending up to 120s. * Patient received total of 29 units of insulin yesterday, of which 25 units were basal insulin (~50% reduction in home dose). Likely home dose covering both basal and prandial needs * BSGs went lower overnight - possibly related to too much novolog? Or possibly too much basal? Unclear reasoning for overnight low. PO intake does remain poorer * Removed CR from novolog for this AM, plan to scale back on basal insulin for HS time PLAN FOR INPATIENT GLYCEMIC CONTROL: * Hold outpatient oral diabetes medications * Basal insulin * Lantus 0-15 units HS * Bolus insulin * NovoLog per scale ACHS or Q6hrs while NPO * Goal Range: Low 120 mg/dL - High 160 mg/dL * Correction Factor: 40 mg/dL/unit * Nutritional / Prandial insulin per carb ratio of 1 unit per -- grams CHO consumed PLAN FOR DISCHARGE: * TBD
[2021-06-11] MEDS: cefTRIAXone SODIUM 2,000 MG in DEXTROSE 5% 50 ML IV SCH (16:15)
[2021-06-11] MEDS: ACETAMINOPHEN 325 MG TAB PO SCH (20:28)
[2021-06-11] MEDS: ASPIRIN 81 MG ECTAB PO SCH (20:28)
[2021-06-11] MEDS ORDERED: INSULIN GLARGINE SOLOSTAR 100 UNITS/ML 3 ML PEN SC SCH (21:00)
[2021-06-12] MEDS: LEVOTHYROXINE SODIUM 88 MCG TABLET PO SCH (05:46)
[2021-06-12 08:29] LABS: Basophils # (auto) 0.01 K/uL (0-0.2); Basophils % (auto) 0.2 %; Hematocrit (blood only) 29.6 % (37-47); Immature Granulocytes # (auto) 0.01 K/uL (0.00-0.02); Immature Granulocytes % (auto) 0.2 %; Lymphocytes % (auto) 15.3 %; Mean Corpuscular Hemoglobin 31.6 pg (25-34); Mean Corpuscular Hgb Conc 33.8 g/dL (32-36); Mean Corpuscular Volume 93.7 fL (80-100); Mean Platelet Volume 10.7 fL (7.4-10.4); Monocytes # (auto) 0.53 K/uL (0.11-0.59); Monocytes % (auto) 11.6 %; Neutrophils # (auto) 3.32 K/uL (1.4-6.5); Neutrophils % (auto) 72.7 %; Platelet Count 183 K/uL (130-400); RDW Coefficient of Variation 13.3 % (11.5-14.5); Red Blood Count 3.16 M/uL (4.2-5.4); White Blood Count 4.57 K/uL (4.8-10.8)
[2021-06-12] MEDS: METOPROLOL TARTRATE 100 MG TAB PO SCH (08:54)
[2021-06-12] MEDS: DULoxetine HCL 30 MG CAP PO SCH (08:55)
[2021-06-12] MEDS: hydrALAZINE 10 MG TAB PO SCH (08:55)
[2021-06-12] MEDS: PANTOprazole 40 MG TAB PO SCH (08:55)
[2021-06-12] MEDS: CHOLECALCIFEROL 1,000 UNITS 25 MCG TAB PO SCH (08:55)
[2021-06-12] MEDS: ASCORBIC ACID 500 MG TAB PO SCH (08:55)
[2021-06-12] MEDS: ISOSORBIDE MONO EXTENDED REL 30 MG TABCR PO SCH (08:56)
[2021-06-12] MEDS: ISOSORBIDE MONO EXTENDED REL 60 MG TABCR PO SCH (08:56)
[2021-06-12] MEDS: dilTIAZem ER 120 MG CAPCR PO SCH (08:56)
[2021-06-12] MEDS: APIXABAN 2.5 MG TAB PO SCH (08:56)
[2021-06-12] MEDS: MULTIVITAMIN TAB PO SCH (08:57)
[2021-06-12] MEDS: ATORVASTATIN 40 MG TAB PO SCH (08:57)
[2021-06-12] MEDS: METOPROLOL TARTRATE 25 MG TAB PO SCH (08:57)
[2021-06-12] MEDS: levETIRAcetam 250 MG TAB PO SCH (08:57)
[2021-06-12 09:25] LABS: BUN Creatinine Ratio 21.4 (10-20); Creatinine Clr Calc Pharmacy 20.7 ml/min; Est GFR (African American) 29.1 ml/min; Est GFR (Non-African American) 25.1 ml/min; Potassium 3.5 mmol/L (3.5-5.1)
[2021-06-12] MEDS: INSULIN ASPART 100 UNITS/ML 3 ML PEN SC SCH ×2 (09:52→12:38)
[2021-06-12] MEDS ORDERED: STROKE PATIENT DISCHARGE STA (12:21)
--- NOTE | 2021-06-12 12:29 | Pharmacy Report ---
Pharmacy Glycemic Short Note 2 - Date of Service June 12, 2021 - Glycemic Short BSG Results (Last 24 hours): 06/11/21 06/11/21 06/12/21 16:52 20:10 07:40 Glucose 54 L POC Glucose 146 H 213 H 06/12/21 06/12/21 08:25 08:33 Glucose POC Glucose 60 L* 72 OUTPATIENT ANTIDIABETIC REGIMEN: * glimepiride 2 mg po bid, Lantus 48 units QDD * A1c 8.4% ASSESSMENT: 06/12: * Pt only received total 17 units of insulin yesterday; 15 units basal and 2 units bolus. * Fasting BSG today was low at 60 mg/dl. Reduce basal insulin dosing scale today. 06/11/21: * 81 year old female admitted with stroke like symptoms. Pharmacy consulted to help with glycemic management * BSGs 58-63 mg/dL on admission and given dextrose in ER - trending up to 120s. * Patient received total of 29 units of insulin yesterday, of which 25 units were basal insulin (~50% reduction in home dose). Likely home dose covering both basal and prandial needs * BSGs went lower overnight - possibly related to too much novolog? Or possibly too much basal? Unclear reasoning for overnight low. PO intake does remain poorer * Removed CR from novolog for this AM, plan to scale back on basal insulin for HS time PLAN FOR INPATIENT GLYCEMIC CONTROL: * Hold outpatient oral diabetes medications * Basal insulin * Lantus 0-15 units HS * Bolus insulin * NovoLog per scale ACHS or Q6hrs while NPO * Goal Range: Low 120 mg/dL - High 160 mg/dL * Correction Factor: 40 mg/dL/unit * Nutritional / Prandial insulin per carb ratio of 1 unit per -- grams CHO consumed PLAN FOR DISCHARGE: * HbA1c = 7.9% * Patient admitted with hypoglycemia. Recommend reduce Lantus to 10 units daily at dinner time if BSG above 140 mg/dl on discharge. * Hold Glimepiride for now until patient has good oral food intake.
[2021-06-12] MEDS ORDERED: INSULIN GLARGINE SOLOSTAR 100 UNITS/ML 3 ML PEN SC SCH (18:00)
--- NOTE | 2021-06-12 19:07 | Discharge Summary ---
Date of Service June 12, 2021 Admission HPI Per Admitting Provider 81-year-old female brought in as a stroke alert. Last time normal was managed with the bed last evening. When her checked on her this morning she had decreased responsiveness and cannot speak properly. She was brought in by EMS under stroke alert. Her blood sugar was in the 70s per EMS was in the 60s here initial CT scan was unremarkable she is found to have acute kidney injury with elevation of her creatinine she was given glucose with a low sugar of 60 and her symptoms improved. There were no acute stroke findings found on CT head however since he is chronically on apixaban and her last time known well exceeded the time threshold thrombolytic agents were contraindicated after discussion with the stroke center. When I saw the patient she was speaking more fluently. She was shivering and cold. She related the events of her urinary tract infection. I looked into the records and found that she had an E. coli resistant to Cipro for which she was prescribed. My concern is this could be an infectious encephalopathy however we'll continue her stroke work-up. The neurology telestroke center did recommend evaluating the angiography of her brain which is on currently pending an MRI of her brain will be ordered. A repeat urinalysis and culture will be sent as well as blood cultures Currently the patient is resting comfortably she is speaking fluently I do believe she likely will pass a bedside speech eval will order her a diet will get therapeutic evaluations. Her is at the bedside all questions were answered they confirm she is a full code. Pt has not had pulmonary symptoms, cough, diarrhea or loss of taste or smell, not hypoxic, incidentally found to be COVID + --> isolation Principal Diagnosis neurologic symptoms from hypoglycemia covid positive status stoke ruled out multidrug resistant Uti poa Discharge Exam The patient appeared well Vital signs as documented. Lungs are clear to auscultation and appear unlabored Cardiac exam, Rhythm is regular.. No murmurs, rubs or gallops. Abdominal exam reveals normal bowel sounds, soft non tender, no masses Extremities are nonedematous and both pedal pulses are normal. Neurologic exam is alert and oriented, no focal loss of strength or sensation Skin is without bruises or rashes Psychologically is without concerns for anxiety or depression. Discharge Data Allergies Allergy/AdvReac Type Severity Reaction Status Date / Time adhesive Allergy Mild red/blistered Verified 06/10/21 10:45 skin latex Allergy Mild CONTACT Verified 06/10/21 10:45 DERMATITIS acetaminophen [From Percocet] Allergy Unknown Unknown Verified 06/10/21 10:45 carbidopa Allergy Unknown Unknown Verified 06/10/21 10:45 carvedilol Allergy Unknown pt unsure, Verified 06/10/21 10:45 listed prior gabapentin Allergy Unknown Unknown Verified 06/10/21 10:45 ranitidine [From Zantac] Allergy Unknown Unknown Verified 06/10/21 10:45 omeprazole AdvReac Intermediate HALLUCINATI Verified 06/10/21 10:45 ONS oxycodone AdvReac Intermediate itching Verified 06/10/21 10:45 phenobarbital AdvReac Intermediate HALLUCINATI Verified 06/10/21 10:45 ONS cephalexin AdvReac Mild DIARRHEA Verified 06/10/21 10:45 fentanyl AdvReac Mild altered Verified 06/10/21 10:45 mental status levofloxacin AdvReac Mild DIARRHEA Verified 06/10/21 10:45 meperidine AdvReac Mild HEADACHES Verified 06/10/21 10:45 metformin AdvReac Mild DIARRHEA Verified 06/10/21 10:45 Sulfa (Sulfonamide AdvReac Mild DIARRHEA Verified 06/10/21 10:45 Antibiotics) fluoxetine AdvReac Unknown Unknown Verified 06/10/21 10:45 Consultations 06/10/21 12:05 ED Decision to Admit Stat Ordered Studies 06/10/21 09:53 CT head/brain wo con Stat 06/10/21 14:28 MR brain wo con Routine Hospital Course (1) Stroke-like symptoms: resolved stoke ruled out Patient presented with strokelike symptoms mostly speech affected resolved with dextrose however patient is shivering and does also have a baseline tremor. Completing stroke evaluation is recommended with angiography of his cerebral circulation and MRI of her brain both been negative for acute stroke.. Echocardiogram will not be performed due to Covid status concerns for presentation with metabolic encephalopathy from hypoglycemia and a prehospital E. coli UTI which was resistant to Cipro for which she was prescribed is outpatient treatment for her UTI. 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 It is noteworthy the patient has previously had a history of subdural hematoma subsequent to falling at home in 2019 (2) Chronic kidney disease, stage 3: Resolvedacute kidney injury with chronic kidney disease stage III. Restart home medications have outpatient lab monitoring with follow up with [facility] (3) COVID: Pt found to be asymptomatic COVID +. No symptoms or hypoxia, will have on isolation. recommended home isolation until 06/21 (4) Dyslipidemia: Patient has history of peripheral artery disease and dyslipidemia treated with atorvastatin and aspirin these are continued at this time (5) Diabetes mellitus, type II: Patient typically taking glimepiride. will be home on reduced dose and reduced (6) Atrial fibrillation: Patient appears to be in sinus rhythm she is anticoagulated with apixaban which will be continued metoprolol will be continued also for atrial fibrillation. (7) Hypertension: She typically uses metoprolol and losartan and hydrochlorothiazide. (8) Anemia: Patient has a history of anemia her hemoglobin is stable at this time (9) Chronic gastritis: Patient continues on a PPI with pharmacy substitute for her home med at this time (10) LUZMA (obstructive sleep apnea): Poorly patient does not wear device will be on telemetry with hypoxia monitoring (11) DVT prophylaxis: apixaban use for DVT prevention Total Time Total Time Spent Total Time Spent (In Minutes): It required greater than 30 minutes to prepare this patient for discharge Discharge Plan Discharge Items Patient Disposition: Home - Self-Care Reason For Visit: TIA,HYPOGLYCEMIA,APHASIA Discharge Diagnosis: neurologic symptoms from low blood sugar multidrug resistant urinary infection present on admission covid + status Condition on Discharge: Fair Activity: Resume your previous activity Non-emergency contact: Primary Care Provider Call non-emergency contact if: you have any medication questions and your symptoms worsen Follow-up/Referrals: Bro Neil CRNP [Primary Care Provider] - 06/18/21 10:20 am (phone call hospital f/u visit due to COVID appt with Denisse Hardy PA-C) Diet: Carb Consistent or DM2 Addtl Attending Provider Instructions: Since you have had a positive covid test this hospital stay you are given the Home Isolation COVID-19 Instructions Please self isolate and refrain from contact with people who have not had covid. For close family contacts, if they are not vaccinated or had covid infection please avoid contact if able, if unable please wear a mask around them even if you are in the same home. With regard to your , if he wishes to get tested that would mean he can go out in public if negative, if he wishes to self isolate you both should avoid public contact until june 21, unless you are feeling ill , then it should be if you have 2 days without symptoms after that date. The following information about Home Isolation is from the CDC Website: https://www.cdc.gov/coronavirus/2019-ncov/hcp/taqnluwi-ftnkkre-fcyfxu.html Stay home except to get medical care People who are mildly ill with COVID-19 are able to isolate at home during their illness. You should restrict activities outside your home, except for getting medical care. Do not go to work, school, or public areas. Avoid using public transportation, ride-sharing, or taxis. Separate yourself from other people and animals in your home People: As much as possible, you should stay in a specific room and away from other people in your home. Also, you should use a separate bathroom, if available. Animals: You should restrict contact with pets and other animals while you are sick with COVID-19, just like you would around other people. Although there have not been reports of pets or other animals becoming sick with COVID-19, it is still recommended that people sick with COVID-19 limit contact with animals until more information is known about the virus. When possible, have another m ember of your household care for your animals while you are sick. If you are sick with COVID-19, avoid contact with your pet, including petting, snuggling, being kissed or licked, and sharing food. If you must care for your pet or be around animals while you are sick, wash your hands before and after you interact with pets and wear a face mask. Call ahead before visiting your doctor If you have a medical appointment, call the healthcare provider and tell them that you have or may have COVID-19. This will help the healthcare providers office take steps to keep other people from getting infected or exposed. Wear a face mask You should wear a face mask when you are around other people (e.g., sharing a room or vehicle) or pets and before you enter a healthcare providers office. If you are not able to wear a face mask (for example, because it causes trouble breathing), then people who live with you should not stay in the same room with you, or they should wear a face mask if they enter your room. Cover your coughs and sneezes Cover your mouth and nose with a tissue when you cough or sneeze. Throw used tissues in a lined trash can. Immediately wash your hands with soap and water for at least 20 seconds or, if soap and water are not available, clean your hands with an alcohol-based hand chief security and safety officer that contains at least 60% alcohol. Clean your hands often Wash your hands often with soap and water for at least 20 seconds, especially after blowing your nose, coughing, or sneezing; going to the bathroom; and before eating or preparing food. If soap and water are not readily available, use an alcohol-based hand chief security and safety officer with at least 60% alcohol, covering all surfaces of your hands and rubbing them together until they feel dry. Soap and water are the best option if hands are visibly dirty. Avoid touching your eyes, nose, and mouth with unwashed hands. Avoid sharing personal household items You should not share dishes, drinking glasses, cups, eating utensils, towels, or bedding with other people or pets in your home. After using these items, they should be washed thoroughly with soap and water. Clean all high-touch surfaces everyday High touch surfaces include counters, tabletops, doorknobs, bathroom fixtures, t oilets, phones, keyboards, tablets, and bedside tables. Also, clean any surfaces that may have blood, stool, or body fluids on them. Use a household cleaning spray or wipe, according to the label instructions. Labels contain instructions for safe and effective use of the cleaning product including precautions you should take when applying the product, such as wearing gloves and making sure you have good ventilation during use of the product. Monitor your symptoms Seek prompt medical attention if your illness is worsening (e.g., difficulty breathing).Beforeseeking care, call your healthcare provider and tell them that you have, or are being evaluated for, COVID-19. Put on a face mask before you enter the facility. These steps will help the healthcare providers office to keep other people in the office or waiting room from getting infected or exposed. Ask your healthcare provider to call the local or [place] [facility] health department. Persons who are placed under active monitoring or facilitated self- monitoring should follow instructions provided by their local health department or occupational health professionals, as appropriate. When working with your local health department check their available hours. If you have a medical emergency and need to call 911, notify the dispatch personnel that you have, or are being evaluated for COVID-19. If possible, put on a face mask before emergency medical services arrive. Discontinuing home isolation Patients with confirmed COVID-19 should remain under home isolation precautions until the risk of secondary transmission to others is thought to be low. The decision to discontinue home isolation precautions should be made on a [id number] basis, in consultation with healthcare providers and state and local health departments. Pending Studies at Discharge: No Stand-Alone Forms: On License Of [facility], Smoking Cessation Medications and DC Order Prescriptions: New cefdinir 300 mg capsule 300 mg PO BID 5 Days Qty: 10 RF: 0 Continued isosorbide mononitrate 60 mg tablet extended release 24 hr 60 mg PO QAM Qty: 90 RF: 3 rabeprazole [AcipHex] 20 mg tablet,delayed release (DR/EC) 20 mg PO QAM Qty: 180 RF: 2 isosorbide mononitrate 30 mg tablet extended release 24 hr 30 mg PO QAM Qty: 90 RF: 3 metoprolol tartrate 25 mg tablet 25 mg PO BID Qty: 180 RF: 1 hydralazine 10 mg tablet 10 mg PO TID Qty: 270 RF: 3 acetaminophen [Tylenol] 325 mg tablet 650 mg PO HS RF: 0 Restasis 0.05 % dropperette 1 drp ophthalmic (eye) BID RF: 0 aspirin [Aspirin Low Dose] 81 mg Tablet,Delayed Release (Dr/Ec) 81 mg PO HS RF: 0 ascorbic acid (vitamin C) [Vitamin C] 500 mg Tablet 500 mg PO QAM RF: 0 cholecalciferol (vitamin D3) [Vitamin D3] 1,000 unit capsule 1,000 units PO QAM RF: 0 multivitamin [Daily Multi-Vitamin] Tablet 1 tab PO QAM RF: 0 atorvastatin [Lipitor] 40 mg tablet 40 mg PO QAM RF: 0 metoprolol tartrate [Lopressor] 100 mg tablet 100 mg PO BID RF: 0 levothyroxine [Synthroid] 88 mcg tablet 88 mcg PO DAILYBB RF: 0 levetiracetam [Keppra] 250 mg tablet 250 mg PO BID RF: 0 diltiazem HCl [Tiazac] 120 mg capsule,extended release 24 hr 120 mg PO BID RF: 0 digoxin [Lanoxin] 125 mcg (0.125 mg) tablet 125 mcg PO 3XWK RF: 0 duloxetine [Cymbalta] 30 mg capsule,delayed release(DR/EC) 30 mg PO QAM RF: 0 Eliquis 2.5 mg tablet 2.5 mg PO BID RF: 0 Changed glimepiride [Amaryl] 2 mg tablet 2 mg PO DAILY Qty: 0 RF: 0 Discontinued Lantus Solostar U-100 Insulin 100 unit/mL (3 mL) insulin pen 48 unit SQ QDD RF: 0 ciprofloxacin HCl [Cipro] 500 mg tablet 500 mg PO DAILY 5 Days Qty: 5 RF: 0 losartan-hydrochlorothiazide [Hyzaar] 100-25 mg tablet 1 tab PO QAM RF: 0 Discharge Orders: Discharge Order (Routine); Ordered 06/12/21 Ordered By: Andrzej Cardenas/Other Patient Handouts: A1C, Hypoglycemia (Low Blood Sugar), Managing Type 2 Diabetes, Symptoms of Stroke Admission Data Admit Date/Time: 06/10/21 12:12 Attending Provider: Andrzej Obregon Admit Provider: Andrzej Obregon Primary Care Provider: Bro Neil Other Providers: Andrzej Obregon Other Interventions: Discharge Summary Assessment (RN) Last Done: 06/12/21 13:11 Coding Level of Care Code D/C DAY MANAGEMENT >30 MINS Diagnoses Stroke-like symptoms R29.90 Chronic kidney disease, stage 3 N18.3 COVID U07.1 Dyslipidemia E78.5 Diabetes mellitus, type II E11.9 Atrial fibrillation I48.0 Atrial fibrillation type: paroxysmal Hypertension I10 Hypertension type: unspecified Anemia D64.9 Chronic gastritis K29.50 LUZMA (obstructive sleep apnea) G47.33 DVT prophylaxis Z29.9
== END 2021-06-12 15:45 | disposition home or self-care (01) ==
LOC: 2S 10:01 → ED 10:01 → 2S 14:00 → 3E 06-11 19:36

== ENCOUNTER 2022-01-20 09:45 | Inpatient (IN) ==
--- NOTE | 2022-01-20 10:09 | Emergency Department Note ---
History of Present Illness General Chief complaint: Shortness of Breath/Dyspnea Stated complaint: SOB Time Seen by Provider: 01/20/22 09:52 Source: patient and family ([id number]) History of Present Illness Provider complaint: Shortness of breath Onset (ago): hour(s) Location: chest Pain Consistency: + constant Maximum Pain Intensity: 0 Quality: + other (Shortness of breath) Relieved By: + none Associated symptoms: + cough, + headaches, + nausea/vomiting and + shortness of breath; no chest pain or no fever/chills This is an 81-year-old female who presents with shortness of breath starting this morning. She states she woke up several hours ago and started to feel short of breath. She denies any alleviating factors. She denies any associated chest pain or discomfort but does state that she has been coughing. Her cough started when she was in the hospital at [facility] but has persisted and gotten worse over the past several days. She is bringing up some phlegm. She denies any fever. She has had no loss of taste or smell. She does have chronic diarrhea which is unchanged. She was admitted to [place] for a bleed in her brain but states that she is still currently on Eliquis. Her [id number] confirms this. She does have a headache but states it is the same headache she has had since December when she was diagnosed with a bleed in her brain. She feels nauseous but is not vomiting. She has chronic swelling to her legs which is unchanged. She has no pain to her legs. She denies any urinary complaints. Home Medications Medication Instructions Recorded Confirmed Type aspirin 81 mg tablet,delayed 81 mg PO HS 07/21/18 01/20/22 History release (Aspirin Low Dose) ascorbic acid (vitamin C) 500 mg 500 mg PO QAM 02/23/19 01/20/22 History tablet (Vitamin C) cholecalciferol (vitamin D3) 25 1,000 units PO QAM cap 07/20/19 01/20/22 History mcg (1,000 unit) capsule (Vitamin D3) multivitamin (Daily Multi-Vitamin) 1 tab PO QAM 12/12/20 01/20/22 History cyclosporine 0.05 % eye drops in a 1 drp OPHTHALMIC (EYE) BID 01/28/21 03/07/22 History dropperette (Restasis) atorvastatin 40 mg tablet (Lipitor) 40 mg PO QAM #90 tab 11/14/21 01/20/22 Rx duloxetine 30 mg capsule,delayed 30 mg PO QAM #90 cap 11/18/21 01/20/22 Rx release (Cymbalta) apixaban 2.5 mg tablet (Eliquis) 2.5 mg PO BID #90 tab 11/20/21 01/20/22 Rx digoxin 125 mcg (0.125 mg) tablet 125 mcg PO 3XWK #30 tab 01/08/22 01/20/22 Rx (Lanoxin) rabeprazole 20 mg tablet,delayed 20 mg PO DAILY #90 tab 01/16/22 01/20/22 Rx release acetaminophen 325 mg tablet 650 mg PO HS PRN tab 01/17/22 01/20/22 History (Tylenol) diltiazem HCl 120 mg capsule,24 120 mg PO DAILY #60 cap 01/17/22 01/20/22 Rx hr,extended release (Tiazac) hydralazine 100 mg tablet 100 mg PO TID 30 Days #90 tab 01/17/22 01/20/22 Rx insulin NPH isoph U-100 human 100 4 unit SUBCUT QAM #10 ml 01/17/22 01/20/22 Rx unit/mL subcutaneous suspension (Humulin N NPH U-100 Insulin (isophane susp)) labetalol 200 mg tablet 200 mg PO TID #60 tab 01/17/22 01/20/22 Rx levetiracetam 250 mg tablet 500 mg PO BID #180 tab 01/17/22 01/20/22 Rx (Keppra) levothyroxine 137 mcg capsule 137 mcg PO DAILY cap 01/17/22 01/20/22 History polyvinyl alcohol-povidone 2.7 %-2 1 drp OPHTHALMIC (EYE) .COMPLEX 01/17/22 01/20/22 Rx % eye drops (FreshKote) #10 ml sodium bicarbonate 650 mg tablet 650 mg PO TID #30 tab 01/17/22 01/20/22 Rx tretinoin 0.05 % topical cream 1 applic TOPICAL .COMPLEX #45 g 01/17/22 01/20/22 Rx (Retin-A) valacyclovir 1 gram tablet 1,000 mg PO .COMPLEX #30 tab 01/17/22 01/20/22 Rx valsartan 160 mg tablet 160 mg PO DAILY #90 tab 01/17/22 01/20/22 Rx Allergies Allergy/AdvReac Type Severity Reaction Status Date / Time adhesive Allergy Mild red/blistered Verified 11/01/21 13:01 skin latex Allergy Mild CONTACT Verified 11/01/21 13:01 DERMATITIS acetaminophen [From Percocet] Allergy Unknown Unknown Verified 11/01/21 13:01 carbidopa Allergy Unknown Unknown Verified 11/01/21 13:01 carvedilol Allergy Unknown pt unsure, Verified 11/01/21 13:01 listed prior gabapentin Allergy Unknown Unknown Verified 11/01/21 13:01 ranitidine [From Zantac] Allergy Unknown Unknown Verified 11/01/21 13:01 omeprazole AdvReac Intermediate HALLUCINATI Verified 11/01/21 13:01 ONS oxycodone AdvReac Intermediate itching Verified 11/01/21 13:01 phenobarbital AdvReac Intermediate HALLUCINATI Verified 11/01/21 13:01 ONS cephalexin AdvReac Mild DIARRHEA Verified 11/01/21 13:01 fentanyl AdvReac Mild altered Verified 11/01/21 13:01 mental status levofloxacin AdvReac Mild DIARRHEA Verified 11/01/21 13:01 meperidine AdvReac Mild HEADACHES Verified 11/01/21 13:01 metformin AdvReac Mild DIARRHEA Verified 11/01/21 13:01 Sulfa (Sulfonamide AdvReac Mild DIARRHEA Verified 11/01/21 13:01 Antibiotics) fluoxetine AdvReac Unknown Unknown Verified 11/01/21 13:01 Past Med/Surg History Medical History Anxiety Atrial fibrillation Benign essential tremor Bowel perforation Chronic gastritis Chronic kidney disease, stage 3 Chronic osteoarthritis Closed head injury COVID Depression Diabetes mellitus, type II Diverticular disease HX DIVERTICULITIS PER RECORDS Fall GERD (gastroesophageal reflux disease) Hiatal hernia History of blood transfusion POST-OP ROBE History of palpitations HLD (hyperlipidemia) Hx of intestinal obstruction 50 YEARS AGO PER RECORDS Hypertension Hypoglycemia associated with type 2 diabetes mellitus Hypomagnesemia 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 H/O total thyroidectomy H/O: hysterectomy History of back surgery LUMBAR DISCECTOMY History of blepharoplasty History of bowel resection History of cardiac cath X2 TOTAL (10+ YEARS AGO)= NO STENTS History of herniorrhaphy VENTRAL HERNIA History of inguinal hernia repair X3 (CHILD) History of laryngoscopy REMOVAL OF POLYPS History of repair of hiatal hernia (~02/2019) History of repair of rotator cuff RIGHT X3, LEFT X 1 History of tubal ligation Hx of hand surgery LUMP REMOVED FROM RIGHT HAND Previous section X3 S/P appendectomy S/P carotid endarterectomy (~2011) RIGHT S/P cholecystectomy S/P hysterectomy (01/22/13) S/P lumpectomy of breast RIGHT Family History Son Family history of reaction to anesthesia SLOW TO WAKE Diabetes Brother Family history of diabetes mellitus Myocardial infarction Sister Family history of diabetes mellitus Mother Family history of diabetes mellitus Myocardial infarction Uncle Family hx of colon cancer X 3 Colorectal cancer Denies family history of Ovarian cancer Prostate cancer Breast cancer Social History Smoking Status: Never smoker Second Hand Exposure: Yes (as child); Hx Alcohol Use: No Hx Substance Use: No Preferred Language: Ukrainian Communication Ability: Effective Visual Impairment: No Limitations Hearing Ability: Normal Flat Polisher Required: No Beliefs That Will Affect Care: None marital status: / marital status details: LOST JUN 2021 D/T COVID Current Living Situation: Family Current Living Situation Comment: LIVES W/ GRANDSON current occupational status: retired Feels Safe at Home: Yes Childhood Exposure to Second-Hand Smoke: Yes caffeine: Yes (Tea x 2 cups per day.) during the past year weight has: remained stable Dental Care, Regularly: Yes Physical Activity Frequency: Does not Exercise Seatbelt Use: always Sunscreen Use: Yes Assistive Devices: Walker Assistive Devices Comment: upper partial, not here Review of Systems See HPI for pertinent positives & negatives. and A total of 10 systems reviewed and were otherwise negative Physical Exam Vital Signs Vital Signs - 24 hr 01/20/22 09:53 01/20/22 10:06 01/20/22 10:10 Temperature 37.0 C 36.9 C Temperature Source Temporal Artery Scan Oral Pulse Rate 88 88 Pulse Rate [Left] Pulse Rate from SpO2 Sensor Pulse Rhythm Regular Pulse Strength Respiratory Rate 20 20 Respiratory Effort / Characteristics Non-Labored Respiratory Depth Normal Respiratory Pattern Blood Pressure 166/76 H Blood Pressure [Left Arm] Blood Pressure Mean 106 Blood Pressure Mean [Left Arm] Blood Pressure Position [Left Arm] Pulse Oximetry 95 95 Oxygen Delivery Method Room Air Room Air Sepsis Recent Fever Within 48 Hours No Sepsis New/Unexplained Change in Mental Status N/A Sepsis Action Taken by Nursing No Action Required 01/20/22 10:37 01/20/22 10:47 01/20/22 11:00 Temperature Temperature Source Pulse Rate 93 H 93 H Pulse Rate [Left] Pulse Rate from SpO2 Sensor 89 90 Pulse Rhythm Pulse Strength Respiratory Rate 24 24 Respiratory Effort / Characteristics Non-Labored Respiratory Depth Normal Respiratory Pattern Blood Pressure 172/81 H 156/66 H Blood Pressure [Left Arm] Blood Pressure Mean 111 96 Blood Pressure Mean [Left Arm] Blood Pressure Position [Left Arm] Pulse Oximetry 94 95 92 Oxygen Delivery Method Room Air Sepsis Recent Fever Within 48 Hours Sepsis New/Unexplained Change in Mental Status Sepsis Action Taken by Nursing 01/20/22 11:30 01/20/22 12:00 01/20/22 12:30 Temperature Temperature Source Pulse Rate 94 H 97 H 96 H Pulse Rate [Left] Pulse Rate from SpO2 Sensor 94 H 95 H 92 H Pulse Rhythm Pulse Strength Respiratory Rate 29 H 24 20 Respiratory Effort / Characteristics Respiratory Depth Respiratory Pattern Blood Pressure 182/89 H 189/83 H 188/84 H Blood Pressure [Left Arm] Blood Pressure Mean 120 118 118 Blood Pressure Mean [Left Arm] Blood Pressure Position [Left Arm] Pulse Oximetry 92 94 94 Oxygen Delivery Method Sepsis Recent Fever Within 48 Hours Sepsis New/Unexplained Change in Mental Status Sepsis Action Taken by Nursing 01/20/22 12:56 01/20/22 12:57 01/20/22 13:00 Temperature 37 C Temperature Source Oral Pulse Rate 93 H 94 H 92 H Pulse Rate [Left] Pulse Rate from SpO2 Sensor 83 94 H Pulse Rhythm Pulse Strength Respiratory Rate 25 H 24 19 Respiratory Effort / Characteristics Respiratory Depth Respiratory Pattern Blood Pressure 181/90 H 181/90 H 181/79 H Blood Pressure [Left Arm] Blood Pressure Mean 120 120 113 Blood Pressure Mean [Left Arm] Blood Pressure Position [Left Arm] Pulse Oximetry 94 93 94 Oxygen Delivery Method Sepsis Recent Fever Within 48 Hours Sepsis New/Unexplained Change in Mental Status Sepsis Action Taken by Nursing 01/20/22 13:15 01/20/22 13:30 01/20/22 13:33 Temperature 37.3 C 37.1 C Temperature Source Oral Oral Pulse Rate 98 H 97 H 91 H Pulse Rate [Left] 97 H Pulse Rate from SpO2 Sensor 100 H 94 H 92 H Pulse Rhythm Regular Regular Pulse Strength Normal Respiratory Rate 20 22 23 Respiratory Effort / Characteristics Non-Labored Spontaneous Respiratory Depth Normal Respiratory Pattern Regular Blood Pressure 182/87 H 191/83 H 189/85 H Blood Pressure [Left Arm] 189/85 H Blood Pressure Mean 118 119 119 Blood Pressure Mean [Left Arm] 119 Blood Pressure Position [Left Arm] Lying Pulse Oximetry 94 93 94 Oxygen Delivery Method Room Air Sepsis Recent Fever Within 48 Hours Sepsis New/Unexplained Change in Mental Status Sepsis Action Taken by Nursing Constitutional: Vital signs reviewed. Eyes: Pupils are equal round reactive to light. Conjunctiva are noninjected. ENT: Pharynx is clear without erythema or exudate. Mucous membranes are moist. Neck supple without meningeal signs. Respiratory: Crackles at the left base but otherwise clear to auscultation. Breath sounds are equal bilaterally. Cardiovascular: Regular rate and rhythm. No rubs or gallops. GI: Soft, nondistended with tenderness in the right lower quadrant where there is some ecchymosis. No guarding. Bowel sounds are present. Rectal: Guaiac negative brown stool. Musculoskeletal: Mild peripheral edema to the lower extremities bilaterally. No lower extremity tenderness. Integumentary: No cyanosis. or jaundice. Incisions to bilateral forehead. Chuy in place. No signs of cellulitis or wound infection. No drainage or b leeding. Neurological: The patient is awake and alert. No focal deficits. Psychiatric: Normal affect. Not anxious appearing. Course Administered Medications Discontinued Medications Hydralazine HCl (Hydralazine Tab 50 Mg Tab) 100 mg PO NOW STA Stop: 01/20/22 14:13 Last Admin: 01/20/22 15:24 Dose: 100 mg Documented by: [id number] Piperacillin Sod/Tazobactam Sod (Zosyn) 4.5 gm in 120 mls @ 240 mls/hr IV NOW ONE Stop: 01/20/22 11:57 Last Infusion: 01/20/22 12:44 Dose: 0 mls/hr Documented by: [id number] Admin: 01/20/22 12:03 Dose: 240 mls/hr Documented by: [id number] Pantoprazole Sodium 40 mg/ (Syringe) 10 mls @ 5 mls/min IV NOW ONE Stop: 01/20/22 13:41 Last Admin: 01/20/22 15:24 Dose: 5 mls/min Documented by: [id number] Labetalol HCl (Labetalol Hcl 200 Mg Tab) 200 mg PO NOW ONE Stop: 01/20/22 14:16 Last Admin: 01/20/22 15:24 Dose: 200 mg Documented by: [id number] Critical Care Time Critical Care Time: Yes Total Critical Care Time: 35 I have personally spent approximately 35 minutes of critical care time in the direct management of this patient. This includes bedside care, interpretation of diagnostic studies, and testing, discussion with consultants, patient, and family members, and other required patient management activities. These minutes are in excess of all separately billable procedures. Medical Decision Making Differential Diagnosis Pneumonia, bronchitis, pulmonary edema, CHF, intracranial hemorrhage, COVID-19 Medical Records Attestation: I reviewed the patient's medical records. I did perform a limited focused review of portions of the patient's old chart on the electronic medical record. The patient presented to this hospital on December 26 after a fall. She was found to have a subdural hematoma, parenchymal contusion and skull fracture and was transferred immediately to [facility]. At [facility] she had bouts of aphasia and had drainage of her hematoma. She also had a negative EEG and lumbar puncture. She did have pulmonary edema while she was there. Her discharge medications include Eliquis. Home Medications Current Medication List: was personally reviewed by me Laboratory Data Attestation: I reviewed the patient's lab results. Result diagrams: 01/20/22 10:35 01/20/22 10:35 Lab Results 01/20/22 01/20/22 01/20/22 Range/Units 10:15 10:35 10:35 WBC 12.48 H (4.8-10.8) K/uL RBC 2.18 L (4.2-5.4) M/uL Hgb 7.2 L (12.0-16.0) g/dL Hct 21.8 L (37-47) % MCV 100.0 (80-100) fL MCH 33.0 (25-34) pg MCHC 33.0 (32-36) g/dL RDW Std Deviation 54.1 H (36.4-46.3) fL RDW Coeff of Michael 14.8 H (11.5-14.5) % Plt Count 223 (130-400) K/uL MPV 9.5 (7.4-10.4) fL Immature Gran % (Auto) 0.4 % Neut % (Auto) 86.0 % Lymph % (Auto) 6.7 % [place] % (Auto) 5.8 % Eos % (Auto) 0.9 % Baso % (Auto) 0.2 % Neut # (Auto) 10.73 H (1.4-6.5) K/uL Lymph # (Auto) 0.84 L (1.2-3.4) K/uL [place] # (Auto) 0.73 H (0.11-0.59) K/uL Eos # (Auto) 0.11 (0-0.5) K/uL Baso # (Auto) 0.02 (0-0.2) K/uL Immature Gran # (Auto) 0.05 H (0.00-0.02) K/uL RBC Morphology Unremarkable Sodium (136-145) mmol/L Potassium (3.5-5.1) mmol/L Chloride (98-107) mmol/L Carbon Dioxide (21-32) mmol/L Anion Gap (3-11) BUN (6-23) mg/dl Creatinine (0.6-1.2) mg/dl Est Cr Clr Drug Dosing ml/min Est GFR ( Amer) ml/min Est GFR (Non-Af Amer) ml/min BUN/Creatinine Ratio (10-20) Glucose (70-99(Fasting)) mg/dl Lactate 0.7 (0.4-2.0) mmol/L Calcium (8.5-10.1) mg/dl Total Bilirubin (0.2-1.0) mg/dl AST (13-39) U/L ALT (7-52) U/L Alkaline Phosphatase (34-104) U/L Troponin I (0-0.04) ng/ml Total Protein (6.0-8.3) gm/dl Albumin (3.4-5.0) gm/dl Globulin (2.5-4.0) gm/dl Albumin/Globulin Ratio (0.9-2) Procalcitonin (0-0.5) ng/ml Urine Color Urine Appearance (Clear) Urine pH (4.5-7.5) Ur Specific [place] (1.000-1.030) Urine Protein (Negative) Urine Glucose (UA) (Negative) Urine Ketones (Negative) Urine Blood (Negative) Urine Nitrite (Negative) Urine Bilirubin (Negative) Urine Urobilinogen (Negative) Ur Leukocyte Esterase (Negative) Urine WBC (Auto) (0-5) /hpf Urine RBC (Auto) (0-4) /hpf U Hyaline Cast (Auto) (0-5) /lpf U Epithel Cells (Auto) (0-5) /lpf Urine Bacteria (Auto) (Negative) SARS-CoV-2, RNA, NAAT NEGATIVE (NEGATIVE) Blood Type Antibody Screen Crossmatch 01/20/22 01/20/22 01/20/22 Range/Units 10:35 10:35 11:31 WBC (4.8-10.8) K/uL RBC (4.2-5.4) M/uL Hgb (12.0-16.0) g/dL Hct (37-47) % MCV (80-100) fL MCH (25-34) pg MCHC (32-36) g/dL RDW Std Deviation (36.4-46.3) fL RDW Coeff of Michael (11.5-14.5) % Plt Count (130-400) K/uL MPV (7.4-10.4) fL Immature Gran % (Auto) % Neut % (Auto) % Lymph % (Auto) % [place] % (Auto) % Eos % (Auto) % Baso % (Auto) % Neut # (Auto) (1.4-6.5) K/uL Lymph # (Auto) (1.2-3.4) K/uL [place] # (Auto) (0.11-0.59) K/uL Eos # (Auto) (0-0.5) K/uL Baso # (Auto) (0-0.2) K/uL Immature Gran # (Auto) (0.00-0.02) K/uL RBC Morphology Sodium 138 (136-145) mmol/L Potassium 3.8 (3.5-5.1) mmol/L Chloride 104 (98-107) mmol/L Carbon Dioxide 25 (21-32) mmol/L Anion Gap 9 (3-11) BUN 24 H (6-23) mg/dl Creatinine 2.00 H (0.6-1.2) mg/dl Est Cr Clr Drug Dosing 18.2 ml/min Est GFR ( Amer) 26.3 ml/min Est GFR (Non-Af Amer) 22.7 ml/min BUN/Creatinine Ratio 12.0 (10-20) Glucose 202 H (70-99(Fasting)) mg/dl Lactate (0.4-2.0) mmol/L Calcium 7.5 L (8.5-10.1) mg/dl Total Bilirubin 0.4 (0.2-1.0) mg/dl AST 15 (13-39) U/L ALT 12 (7-52) U/L Alkaline Phosphatase 61 (34-104) U/L Troponin I 0.11 H* (0-0.04) ng/ml Total Protein 5.6 L (6.0-8.3) gm/dl Albumin 2.9 L (3.4-5.0) gm/dl Globulin 2.7 (2.5-4.0) gm/dl Albumin/Globulin Ratio 1.1 (0.9-2) Procalcitonin 0.20 (0-0.5) ng/ml Urine Color Urine Appearance (Clear) Urine pH (4.5-7.5) Ur Specific [place] (1.000-1.030) Urine Protein (Negative) Urine Glucose (UA) (Negative) Urine Ketones (Negative) Urine Blood (Negative) Urine Nitrite (Negative) Urine Bilirubin (Negative) Urine Urobilinogen (Negative) Ur Leukocyte Esterase (Negative) Urine WBC (Auto) (0-5) /hpf Urine RBC (Auto) (0-4) /hpf U Hyaline Cast (Auto) (0-5) /lpf U Epithel Cells (Auto) (0-5) /lpf Urine Bacteria (Auto) (Negative) SARS-CoV-2, RNA, NAAT (NEGATIVE) Blood Type O Positive Antibody Screen NEGATIVE Crossmatch See Detail 01/20/22 Range/Units 12:40 WBC (4.8-10.8) K/uL RBC (4.2-5.4) M/uL Hgb (12.0-16.0) g/dL Hct (37-47) % MCV (80-100) fL MCH (25-34) pg MCHC (32-36) g/dL RDW Std Deviation (36.4-46.3) fL RDW Coeff of Michael (11.5-14.5) % Plt Count (130-400) K/uL MPV (7.4-10.4) fL Immature Gran % (Auto) % Neut % (Auto) % Lymph % (Auto) % [place] % (Auto) % Eos % (Auto) % Baso % (Auto) % Neut # (Auto) (1.4-6.5) K/uL Lymph # (Auto) (1.2-3.4) K/uL [place] # (Auto) (0.11-0.59) K/uL Eos # (Auto) (0-0.5) K/uL Baso # (Auto) (0-0.2) K/uL Immature Gran # (Auto) (0.00-0.02) K/uL RBC Morphology Sodium (136-145) mmol/L Potassium (3.5-5.1) mmol/L Chloride (98-107) mmol/L Carbon Dioxide (21-32) mmol/L Anion Gap (3-11) BUN (6-23) mg/dl Creatinine (0.6-1.2) mg/dl Est Cr Clr Drug Dosing ml/min Est GFR ( Amer) ml/min Est GFR (Non-Af Amer) ml/min BUN/Creatinine Ratio (10-20) Glucose (70-99(Fasting)) mg/dl Lactate (0.4-2.0) mmol/L Calcium (8.5-10.1) mg/dl Total Bilirubin (0.2-1.0) mg/dl AST (13-39) U/L ALT (7-52) U/L Alkaline Phosphatase (34-104) U/L Troponin I (0-0.04) ng/ml Total Protein (6.0-8.3) gm/dl Albumin (3.4-5.0) gm/dl Globulin (2.5-4.0) gm/dl Albumin/Globulin Ratio (0.9-2) Procalcitonin (0-0.5) ng/ml Urine Color Yellow Urine Appearance Clear (Clear) Urine pH 6.0 (4.5-7.5) Ur Specific [place] 1.014 (1.000-1.030) Urine Protein 3+ H (Negative) Urine Glucose (UA) Trace H (Negative) Urine Ketones Negative (Negative) Urine Blood Negative (Negative) Urine Nitrite Negative (Negative) Urine Bilirubin Negative (Negative) Urine Urobilinogen Negative (Negative) Ur Leukocyte Esterase Negative (Negative) Urine WBC (Auto) 5-10 H (0-5) /hpf Urine RBC (Auto) 0-4 (0-4) /hpf U Hyaline Cast (Auto) 1-5 (0-5) /lpf U Epithel Cells (Auto) 10-20 H (0-5) /lpf Urine Bacteria (Auto) Negative (Negative) SARS-CoV-2, RNA, NAAT (NEGATIVE) Blood Type Antibody Screen Crossmatch Imaging Data Radiologist's Impression: Chest X-Ray 01/20/22 10:06 XR chest 1V portable CLINICAL HISTORY: Dyspnea. COMPARISON STUDY: 12/26/2021 TECHNIQUE: 1 view of the chest FINDINGS: Single frontal view of the chest demonstrates the heart size to be mildly enlarged. There has been interval development of [id number] sized left pleural effusion with left lower lobe atelectasis/collapse. Early retrocardiac infiltrate cannot be excluded. There is also evidence for small right pleural effusion and right basilar atelectasis. Again, early right lower lobe infiltrate cannot be excluded. There is no evidence for vascular congestion. There is no acute osseous pathology. IMPRESSION: 1. Interval development of bilateral pleural effusions, left greater than right. 2. Bilateral lower lobe atelectasis/collapse is also present, left greater than right. 3. Early lower lobe infiltrate/pneumonia cannot be excluded. ACT 112: Negative or not required by law. Electronically signed by: Sai Bain M.D. 01/20/2022 11:[address] 01/20/22 10:09 CT head/brain wo con CLINICAL HISTORY: BALTAZAR eval for bleed Technique: Contiguous axial CT images of the head were acquired from the base of the skull to the vertex without intravenous contrast administration. Images were viewed in brain, subdural and bone windows. Automated dose lowering techniques and/or adjustment according to patient size were utilized for this exam. Comparison: Comparison is made to CT head 12/26/2021 Findings: Areas of decreased attenuation are present in the periventricular and subcortical white matter bilaterally consistent with small vessel ischemic disease. Generalized cerebral volume loss with commensurate enlargement of the ventricles, sulci, and cisterns is also present. There are bilateral subdural mild hyperdensities measuring approximately 8 mm in thickness. The hernia from prior exam. Imaged portions of the paranasal sinuses and mastoid air cells are clear. The orbits appear normal. In the interval, there are bilateral postsurgical changes in the frontal lobes with overlying surgical chuy. Impression: Interval development of bilateral subdural mild hyperdensities measuring 8 mm. Bilateral yoandy holes are seen. These are favored to represent subacute appearance of subdural hematoma status post surgical decompression. ACT 112: Negative or not required by law. Electronically signed by: Guillermo Lowe M.D. 01/20/2022 11:05 AM Abdomen/Pelvis CT 01/20/22 11:26 CT abd pelvis wo con CLINICAL HISTORY: lower abd injury with Hgb7 eval for hematoma TECHNIQUE: Helical axial images of the abdomen and pelvis were obtained. Automated dose lowering techniques and/or adjustment according to patient size were utilized for this exam. This exam was performed without intravenous contrast. COMPARISON: Comparison is made to CT abdomen pelvis 12/12/2020 FINDINGS: Lower chest: Bilateral pleural effusions and underlying atelectasis are seen. Partial visualization cardiomegaly. Liver: Unremarkable. No focal lesions are seen. Gallbladder and biliary tree: Patient is status post cholecystectomy. No intra- or extrahepatic biliary ductal dilation. Pancreas: Unremarkable, no focal lesions. Spleen: Unremarkable. Adrenals: Unremarkable. Kidneys and ureters: Nonobstructive nephrolithiasis is seen. Bladder: Unremarkable. Reproductive organs: Unremarkable. Bowel: Unremarkable. Lymph nodes Retroperitoneal: Unremarkable. Mesenteric: Unremarkable. Pelvic: Unremarkable. Peritoneum: Normal. Vessels: Atherosclerotic calcifications are seen. Abdominal wall: Redemonstration of soft tissue density in the anterior midline abdominal wall, likely representing fluid along the umbilical hernia mesh. Right iliacus hematoma is no longer noted. Bones: Degenerative changes in the visualized spine. IMPRESSION: 1. No acute abnormalities are seen. In particular, no evidence of hematoma. Soft tissue stranding is seen in the lower abdomen. 2. Interval resolution of iliacus hematoma. Fluid is again seen in the midline abdomen, likely about a hernia mesh. ACT 112: Negative or not required by law. Electronically signed by: Guillermo Lowe M.D. 01/20/2022 12:28 PM ECG Data Attestation: I personally reviewed and interpreted this ECG as follows: Indication: + SOB/dyspnea Rate (beats per minute): 93 Rhythm: + normal sinus ECG [place]: + Normal ECG ST segments: + Nonspecific ST abnormalities ECG Findings: + PVCs Comparison ECG Date: from (December 26, 2021) Change: no significant change MDM Narrative I did evaluate the patient as noted above. The patient is presenting with shortness of breath. She has also had a cough. She was just discharged from [facility] on the second of this month for cerebral parenchymal hemorrhage as well as subdural hematoma. She was noted to have pulmonary edema by cardiology at [facility]. Her [id number]-nuz's does state that she has chronic swelling to her legs which is unchanged. She states she is currently on Eliquis despite her recent history of intracranial hemorrhage. IV access was established. I did place an order for continuous cardiac monitoring. The monitor showed normal sinus rhythm at a rate of 92 bpm. I did order and personally review the patient's 12-lead EKG as described above. She has normal sinus rhythm with nonspecific ST changes. They were present on her previous EKG from December 26. I did order and personally reviewed the images of the patient's chest x-ray as described above. She appears to have bilateral ef fusions as well as infiltrates greater on the left side. I did order blood cultures. She was treated with Zosyn IV. COVID-19 testing was negative. Did order and review the patient's blood work as noted in the electronic medical record. CBC shows a white count of 12.4. Her hemoglobin is down to 7.2 from on December 26. Platelet count is within normal limits. Creatinine is slightly above baseline at 2 with a BUN of 24. Electrolytes are unremarkable other than a calcium of 7.5. She does have a history of hypercalcemia. Troponin is slightly elevated at 0.1. She denies having any chest discomfort. She does have some nonspecific ST changes as described above. She also has poor renal function and so she will need to have repeat cardiac biomarkers. I did perform a rectal examination which shows guaiac negative brown stool. I did obtain informed consent from the patient regarding blood transfusion. I did order a type and cross and transfusion of 1 unit in the emergency department. did order a CT of the head and then a CT of the abdomen pelvis. I did review the images myself as well as the radiology report as described above. CT of the head shows subacute subdurals bilaterally. I did review the CT reports from [facility] with the radiologist Dr. Lowe. We felt that it the findings on CT were consistent with the subsequent to CT she has had since her initial when here. No acute findings have developed. She does state that her headache is unchanged from when she fell. Impression & Plan Symptomatic anemia, Chronic bilateral pleural effusions, Chronic kidney disease, Hypocalcemia, Hyperglycemia, Elevated troponin, Pneumonia, Anticoagulated Discharge Plan Visit Data Chief Complaint: Shortness of Breath/Dyspnea Stated Complaint: SOB ED Provider: Andrzej Gant Discharge Problem: Symptomatic anemia, Chronic bilateral pleural effusions, Chronic kidney disease, Hypocalcemia, Hyperglycemia, Elevated troponin, Pneumonia, Anticoagulated Patient Disposition: Admitted As Inpatient Discharge Instructions Interventions: ED Discharge Assessment Last Done: 01/20/22 14:21 Discharge Problem: Chronic kidney disease Qualifiers: Chronic kidney disease stage: unspecified stage Qualified Code(s): N18.9 - Chronic kidney disease, unspecified Pneumonia Qualifiers: Pneumonia type: due to unspecified organism Laterality: left Lung location: lower lobe of lung Qualified Code(s): J18.9 - Pneumonia, unspecified organism
[2022-01-20 10:49] LABS: Hematocrit (blood only) 21.8 % (37-47); Hemoglobin 7.2 g/dL (12.0-16.0); Mean Platelet Volume 9.5 fL (7.4-10.4); Platelet Count 223 K/uL (130-400); RDW Coefficient of Variation 14.8 % (11.5-14.5); RDW Standard Deviation 54.1 fL (36.4-46.3); Red Blood Count 2.18 M/uL (4.2-5.4); White Blood Count 12.48 K/uL (4.8-10.8)
--- NOTE | 2022-01-20 11:06 | CT Scan Report ---
CT head/brain wo con CLINICAL HISTORY: BALTAZAR eval for bleed Technique: Contiguous axial CT images of the head were acquired from the base of the skull to the kellie bang without intravenous contrast administration. Images were viewed in brain, subdural and bone [facility]. Automated dose lowering techniques and/or adjustment according to patient size were utilized for this exam. Comparison: Comparison is made to CT head 12/26/2021 Findings: Areas of decreased attenuation are present in the periventricular and subcortical white matter bilate rally consistent with small vessel ischemic disease. Generalized cerebral volume loss with commensura te enlargement of the ventricles, sulci, and cisterns is also present. There are bilateral subdural m ild hyperdensities measuring approximately 8 mm in thickness. The hernia from prior exam. Imaged portions of the paranasal sinuses and mastoid air cells are clear. The orbits appear normal. In the interval, there are bilateral postsurgical changes in the frontal lobes with overlying surgic al sherita. Impression: Interval development of bilateral subdural mild hyperdensities measuring 8 mm. Bilateral yoandy holes a re seen. These are favored to represent subacute appearance of subdural hematoma status post surgical decompression. ACT 112: Negative or not required by law. Electronically signed by: Guillermo Lowe M.D. 01/20/2022 11:05 AM
--- NOTE | 2022-01-20 11:07 | XRay Report ---
XR chest 1V portable CLINICAL HISTORY: Dyspnea. COMPARISON STUDY: 12/26/2021 TECHNIQUE: 1 view of the chest FINDINGS: Single frontal view of the chest demonstrates the heart size to be mildly enlarged. There has been in terval development of [id number] sized left pleural effusion with left lower lobe atelectasis/ collapse. Early retrocardiac infiltrate cannot be excluded. There is also evidence for small right pl eural effusion and right basilar atelectasis. Again, early right lower lobe infiltrate cannot be excl uded. There is no evidence for vascular congestion. There is no acute osseous pathology. IMPRESSION: 1. Interval development of bilateral pleural effusions, left greater than right. 2. Bilateral lower lobe atelectasis/collapse is also present, left greater than right. 3. Early lower lobe infiltrate/pneumonia cannot be excluded. ACT 112: Negative or not required by law. Electronically signed by: Sai Bain M.D. 01/20/2022 11:05 AM
[2022-01-20 11:12] LABS: Albumin Globulin Ratio 1.1 (0.9-2); Albumin Level 2.9 gm/dl (3.4-5.0); Bilirubin,Total 0.4 mg/dl (0.2-1.0); Calcium 7.5 mg/dl (8.5-10.1); Creatinine Clr Calc Pharmacy 18.2 ml/min; Est GFR (African American) 26.3 ml/min; Est GFR (Non-African American) 22.7 ml/min; Globulin 2.7 gm/dl (2.5-4.0); Potassium 3.8 mmol/L (3.5-5.1); Total Protein 5.6 gm/dl (6.0-8.3)
[2022-01-20 11:16] LABS: Basophils # (auto) 0.02 K/uL (0-0.2); Basophils % (auto) 0.2 %; Eosinophils # (auto) 0.11 K/uL (0-0.5); Eosinophils % (auto) 0.9 %; Immature Granulocytes # (auto) 0.05 K/uL (0.00-0.02); Immature Granulocytes % (auto) 0.4 %; Lymphocytes # (auto) 0.84 K/uL (1.2-3.4); Lymphocytes % (auto) 6.7 %; Monocytes # (auto) 0.73 K/uL (0.11-0.59); Monocytes % (auto) 5.8 %; Neutrophils # (auto) 10.73 K/uL (1.4-6.5); RBC Morphology Unremarkable
[2022-01-20 11:19] LABS: Troponin I 0.11 ng/ml (0-0.04)
[2022-01-20] MEDS ORDERED: SODIUM CHLORIDE 0.9% 250 ML IV PRN (11:26)
[2022-01-20] MEDS ORDERED: PIPERACILLIN/TAZOBACTAM 4.5 GM/120 ML BAG IV ONE (11:28)
[2022-01-20] MEDS ORDERED: PIPERACILL/TAZOBAC CONSULT ACTIVE PRN ×2 (11:28→14:41)
--- NOTE | 2022-01-20 12:30 | CT Scan Report ---
CT abd pelvis wo con CLINICAL HISTORY: lower abd injury with Hgb7 eval for hematoma TECHNIQUE: Helical axial images of the abdomen and pelvis were obtained. Automated dose lowering tech niques and/or adjustment according to patient size were utilized for this exam. This exam was perfor med without intravenous contrast. COMPARISON: Comparison is made to CT abdomen pelvis 12/12/2020 FINDINGS: Lower chest: Bilateral pleural effusions and underlying atelectasis are seen. Partial visualization cardiomegaly. Liver: Unremarkable. No focal lesions are seen. Gallbladder and biliary tree: Patient is status post cholecystectomy. No intra- or extrahepatic bilia ry ductal dilation. Pancreas: Unremarkable, no focal lesions. Spleen: Unremarkable. Adrenals: Unremarkable. Kidneys and ureters: Nonobstructive nephrolithiasis is seen. Bladder: Unremarkable. Reproductive organs: Unremarkable. Bowel: Unremarkable. Lymph nodes Retroperitoneal: Unremarkable. Mesenteric: Unremarkable. Pelvic: Unremarkable. Peritoneum: Normal. Vessels: Atherosclerotic calcifications are seen. Abdominal wall: Redemonstration of soft tissue density in the anterior midline abdominal wall, likely representing fluid along the umbilical hernia mesh. Right iliacus hematoma is no longer noted. Bones: Degenerative changes in the visualized spine. IMPRESSION: 1. No acute abnormalities are seen. In particular, no evidence of hematoma. Soft tissue stranding is seen in the lower abdomen. 2. Interval resolution of iliacus hematoma. Fluid is again seen in the midline abdomen, likely about a hernia mesh. ACT 112: Negative or not required by law. Electronically signed by: Guillermo Lowe M.D. 01/20/2022 12:28 PM
[2022-01-20 13:04] LABS: Appearance Urine Clear (Clear); Bacteria Urine Automated Negative (Negative); Bilirubin Urine Negative (Negative); Blood Urine Negative (Negative); Color Urine Yellow; Glucose Urine UA Trace (Negative); Ketones Urine Negative (Negative); Leukocyte Esterase Urine Negative (Negative); Nitrite Urine Negative (Negative); Protein Urine 3+ (Negative); RBC Urine Automated 0-4 /hpf (0-4); Specific Gravity Urine 1.014 (1.000-1.030); Urobilinogen Urine Negative (Negative)
[2022-01-20] MEDS ORDERED: PANTOprazole 40 MG in SYRINGE 0 ML IV ONE (13:40)
--- NOTE | 2022-01-20 13:43 | History & Physical Report ---
Date of Service January 20, 2022 Assessment & Plan (1) Symptomatic anemia: Plan: Current HGB 7.2- discharge from [facility] HGB 8.5- no evidence of acute blood loss and negative GRACIELA - BUN stable for patient at baseline - Iron studies sent- blood transfusion just starting at time of draw - Transfuse 1 unit of PRBC- follow HGB - Hold Eliquis for tonight- last dose 01/19/22 in afternoon - ASA hold for now- restart in morning likely - Protonix 40mg IV BID for 24-48 hours while following HGB (2) Dyspnea: Plan: Multifactorial with differential to include- Anemia, bilateral plueral effusions, pneumonia vs. atelectasis - treat each and follow pleural effusions - may need diuretic tonight or in the morning - BNP pending (3) Pneumonia: Plan: Left lower lobe opacity vs atelectasis - WBC 12, NLR 5:1 - Continue Zosyn IV and trend biomarkers - PCT pending - Previously completed Zosyn 5 day course 01/09-01/14 - Appears more consistent with atelectasis however with recent admission with ICU stay will treat - MRSA swab pending as well (4) Hypertension: Plan: Poorly controlled - Goal would be less <160 overnight and retirement with CKD should be <130 - Give her dose of her Hydralazine and Labetalol now - PRN Hydralazine for SBP >180 not resolved with oral dosing - She has just had her medications adjusted at [facility] following reported hypertensive work-up by their engineer station mainline - Follow clinical response (5) Subdural hematoma: Plan: Subacute from - no interval increase appreciated by radiologist - Follow neurological exams (6) Chronic gastritis: Plan: Will add Protonix 40mg IV BID - ? 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 from [facility] - 2.2- now 2.0 - Follow avoid further nephrotoxic medications (9) Carotid artery stenosis: Plan: CEA right side - Continue statin - HGB stable- restart asa in morning (10) Dyslipidemia: Plan: Continue statin (11) Herpes labialis: Plan: Continue Valacyclovir (12) Osteopenia: Plan: remains with low serum calcium - continue with cholecalciferol (13) Hypothyroidism: Plan: Synthroid just increased to 137 mcg within last 3 weeks - PCP appointment on Thursday (14) Paroxysmal atrial fibrillation: Plan: Currently in NSR - Hold Eliquis for now and follow HGB/HCT and symptomatology - Continue with Dilt and Dig (15) Diabetes mellitus, type II: Plan: She was recently placed on NPH 4 units every morning - will continue and add on sliding scale coverage CF 20 with ratio 1:15 History of Present Illness Primary Care Provider: YANET Zhao 81 YOF with past medical history of: CKD III, HTN, DM II, hypocalcemia, Vitamin D Defficiency, hypothyroid, herpes labialis, afib (on Eliquis), subdural hematoma, resting tremor, anemia, PAD, chronic gastritis. Patient comes to the EMD this morning for concerns of dyspnea upon awakening this morning. She endorses that she has had a cough for the past week and it is mostly a tickle feeling in her throat. She is coughing up what she reports as clear sputum. She was treated at [facility] from 12-26-21-01/15/22 for sudural hematoma requiring decompressive craniotomy, this stay was complicated by uncontrolled hyperte nsion, AWILDA on CKD, hyponatremia and aspiration pneumonia treated with Zosyn at that time and completed 5 day course. She was discharged home with home health and reports that she has been doing well with this. In the EMD the patient labs were notable for WBC 12, NLR 5:1, HGB 7.2, INCIDENT RESPONSE ENGINEER 2.0, BUN 24 and Troponin of 0.11. She had CXR done, CT scan of head, and CT scan of abdomen and pelvis. Her CT scan of head continues to show 8 x8 bilateral subdural hematomas, CXR reveals bilateral pleural effusion with left lower lobe atelectasis vs. pneumonia, CT scan of abdomen and pelvis with small fluid collection over her mesh. Patient was given 1 unit of PRBC by EMD for symptomatic anemia, she was started on Zosyn for concerns of pneumonia. Will admit patient, continue to trend her Troponin I, follow her HGB/HCT, Protonix IV bid, continue abx coverage follow biomarkers, follow her renal function and response to the above. Patient COVID test on admission is: NEGATIVE Allergies Allergy/AdvReac Type Severity Reaction Status Date / Time adhesive Allergy Mild red/blistered Verified 01/24/22 14:59 skin latex Allergy Mild CONTACT Verified 01/24/22 14:59 DERMATITIS acetaminophen [From Percocet] Allergy Unknown Unknown Verified 01/24/22 14:59 carbidopa Allergy Unknown Unknown Verified 01/24/22 14:59 carvedilol Allergy Unknown pt unsure, Verified 01/24/22 14:59 listed prior gabapentin Allergy Unknown Unknown Verified 01/24/22 14:59 ranitidine [From Zantac] Allergy Unknown Unknown Verified 01/24/22 14:59 omeprazole AdvReac Intermediate HALLUCINATI Verified 01/24/22 14:59 ONS oxycodone AdvReac Intermediate itching Verified 01/24/22 14:59 phenobarbital AdvReac Intermediate HALLUCINATI Verified 01/24/22 14:59 ONS cephalexin AdvReac Mild DIARRHEA Verified 01/24/22 14:59 fentanyl AdvReac Mild altered Verified 01/24/22 14:59 mental status levofloxacin AdvReac Mild DIARRHEA Verified 01/24/22 14:59 meperidine AdvReac Mild HEADACHES Verified 01/24/22 14:59 metformin AdvReac Mild DIARRHEA Verified 01/24/22 14:59 Sulfa (Sulfonamide AdvReac Mild DIARRHEA Verified 01/24/22 14:59 Antibiotics) fluoxetine AdvReac Unknown Unknown Verified 01/24/22 14:59 Home Medications Medication Instructions Recorded Confirmed Type ascorbic acid (vitamin C) 500 mg 500 mg PO QAM 02/23/19 01/24/22 History tablet (Vitamin C) cholecalciferol (vitamin D3) 25 1,000 units PO QAM cap 07/20/19 01/24/22 History mcg (1,000 unit) capsule (Vitamin D3) multivitamin (Daily Multi-Vitamin) 1 tab PO QAM 12/12/20 01/24/22 History cyclosporine 0.05 % eye drops in a 1 drp OPHTHALMIC (EYE) BID 12/13/20 01/24/22 History dropperette (Restasis) atorvastatin 40 mg tablet (Lipitor) 40 mg PO QAM #90 tab 11/14/21 01/24/22 Rx duloxetine 30 mg capsule,delayed 30 mg PO QAM #90 cap 11/18/21 01/24/22 Rx release (Cymbalta) digoxin 125 mcg (0.125 mg) tablet 125 mcg PO 3XWK #30 tab 01/08/22 01/24/22 Rx (Lanoxin) rabeprazole 20 mg tablet,delayed 20 mg PO DAILY #90 tab 01/16/22 01/24/22 Rx release acetaminophen 325 mg tablet 650 mg PO HS PRN tab 01/17/22 01/24/22 History (Tylenol) diltiazem HCl 120 mg capsule,24 120 mg PO DAILY #60 cap 01/17/22 01/24/22 Rx hr,extended release (Tiazac) hydralazine 100 mg tablet 100 mg PO TID 30 Days #90 tab 01/17/22 01/24/22 Rx labetalol 200 mg tablet 200 mg PO TID #60 tab 01/17/22 01/24/22 Rx levetiracetam 250 mg tablet 500 mg PO BID #180 tab 01/17/22 01/24/22 Rx (Keppra) levothyroxine 137 mcg capsule 137 mcg PO DAILY cap 01/17/22 01/24/22 History polyvinyl alcohol-povidone 2.7 %-2 1 drp OPHTHALMIC (EYE) .COMPLEX 01/17/22 01/24/22 Rx % eye drops (FreshKote) #10 ml sodium bicarbonate 650 mg tablet 650 mg PO TID #30 tab 01/17/22 01/24/22 Rx tretinoin 0.05 % topical cream 1 applic TOPICAL .COMPLEX #45 g 01/17/22 01/24/22 Rx (Retin-A) valacyclovir 1 gram tablet 1,000 mg PO .COMPLEX #30 tab 01/17/22 01/24/22 Rx valsartan 160 mg tablet 160 mg PO DAILY #90 tab 01/17/22 01/24/22 Rx amoxicillin 500 mg-potassium 1 tab PO BID #10 tab 01/22/22 01/24/22 Rx clavulanate 125 mg tablet (Augmentin) insulin NPH isoph U-100 human 100 5 unit SUBCUT TID ml 01/24/22 01/24/22 History unit/mL subcutaneous suspension (Humulin N NPH U-100 Insulin (isophane susp)) Past Med/Surg History Medical History (Updated 01/26/22 @ 00:03 by Lisa Laureano) Anxiety Atrial fibrillation Benign essential tremor Bowel perforation Chronic gastritis Chronic kidney disease, stage 3 Chronic osteoarthritis Closed head injury COVID Depression Diabetes mellitus, type II Diverticular disease HX DIVERTICULITIS PER RECORDS GERD (gastroesophageal reflux disease) Hiatal hernia History of palpitations HLD (hyperlipidemia) Hx of intestinal obstruction 50 YEARS AGO PER RECORDS Hypertension Hypoglycemia associated with type 2 diabetes mellitus Hypomagnesemia Hypothyroidism 2/2 thyroidectomy IBS (irritable bowel syndrome) Macular degeneration Mitral valve vegetation (01/26/20) Noted per echo 01/26/2020 Obesity LUZMA (obstructive sleep apnea) NO DEVICE Osteoarthritis Osteopenia PAD (peripheral artery disease) Paroxysmal atrial fibrillation CURRENTLY AND SCHEDULED FOR CARDIOVERSION RLS (restless legs syndrome) Spinal stenosis Transient ischemic attack (TIA) (~03/2018) Tubular adenoma of colon Vitamin D deficiency Surgical History (Updated 01/25/22 @ 13:34 by Mary Warren DO) Family history of reaction to anesthesia SON-HARD TIME WAKING UP. H/O total thyroidectomy H/O: hysterectomy History of back surgery LUMBAR DISCECTOMY History of blepharoplasty History of bowel resection History of cardiac cath X2 TOTAL (10+ YEARS AGO)= NO STENTS History of herniorrhaphy VENTRAL HERNIA History of inguinal hernia repair X3 (CHILD) History of laryngoscopy REMOVAL OF POLYPS History of repair of hiatal hernia (~02/2019) History of repair of rotator cuff RIGHT X3, LEFT X 1 History of tubal ligation Hx of hand surgery LUMP REMOVED FROM RIGHT HAND Previous section X3 S/P appendectomy S/P carotid endarterectomy (~2011) RIGHT S/P cholecystectomy S/P craniotomy (01/07/22) S/P hysterectomy (01/22/13) S/P lumpectomy of breast RIGHT Family History Son Family history of reaction to anesthesia SLOW TO WAKE Diabetes Brother Family history of diabetes mellitus Myocardial infarction Sister Family history of diabetes mellitus Mother Family history of diabetes mellitus Myocardial infarction Uncle Family hx of colon cancer X 3 Colorectal cancer Denies family history of Ovarian cancer Prostate cancer Breast cancer Social History Smoking Status: Never smoker Second Hand Exposure: Yes (as child); Hx Alcohol Use: No Hx Substance Use: No Preferred Language: Jamaican Communication Ability: Effective Visual Impairment: No Limitations Hearing Ability: Normal [employer] Required: No Beliefs That Will Affect Care: None marital status: / marital status details: LOST JUN 2021 D/T COVID Current Living Situation: Family Current Living Situation Comment: LIVES W/ GRANDSON current occupational status: retired Feels Safe at Home: Yes Childhood Exposure to Second-Hand Smoke: Yes caffeine: Yes (Tea x 2 cups per day.) during the past year weight has: remained stable Dental Care, Regularly: Yes Physical Activity Frequency: Does not Exercise Seatbelt Use: always Sunscreen Use: Yes Assistive Devices: Walker Review of Systems Review of Systems: REVIEW OF SYSTEMS: Constitutional: (+) chills this morning, NO fever, sweats Eyes: No diplopia, no worsening or blurred vision ENT: normal hearing, no trouble swallowing Respiratory: (+) cough, sputum, dyspnea on exertion Cardiovascular: No chest pain, tightness or palpitations Abdomen: (+) chronic diarrhea, No pain, nausea, vomiting or constipation Musculoskeletal: No joint pain, calf pain, swelling Neurologic: No weakness, numbness/tingling, or balance problems Psychiatric: No anxiety or depression Skin: No rash or itch Physical Exam Physical Exam: PHYSICAL EXAM: General: awake, alert, no apparent distress, poor short term memory re- occurrence Head: sherita to multiple sites on scalp, intact no drainage ENT: PERRLA, EOMI, no pharyngeal exudate, mucous membranes moist Neuro: AAO x 3, speech clear and appropriate, strength intact bilaterally 5/5, sensation intact and equal all extremities and dermatomes, no pronator drift Chest: equal rise and fall of the chest, no accessory muscle use, decreased in the bases bilaterally with end expiratory wheeze, scattered crackles in base left Cardiac: Regular rate and rhythm, telemetry reviewed-NSR, skin warm dry, cap refill <3 seconds, peripheral pules +2 no JVD, Trace bilateral lower extremity edema to shins and ankles GI: NABS x 4 quadrants, soft, nontender to palpation, no rebound, guarding or tenderness, bruising noted to left lower abdominal quad : Spontaneously voiding, no pain, no CVA tenderness, Extremities: Normal inspection, no peripheral edema or erythema, calfs nontender to palpation Psych: Normal mood and affect Results & Data Results & Data ([facility]) Vital Signs (Past 12 Hours) Vital Signs Temp Pulse Resp BP Pulse Ox 01/20/22 13:15 37.3 C 96 H 25 H 182/87 H 94 01/20/22 13:00 92 H 19 181/79 H 94 01/20/22 12:57 94 H 24 181/90 H 93 01/20/22 12:56 37 C 93 H 25 H 181/90 H 94 01/20/22 12:30 96 H 20 188/84 H 94 01/20/22 12:00 97 H 24 189/83 H 94 01/20/22 11:30 94 H 29 H 182/89 H 92 01/20/22 11:00 93 H 24 156/66 H 92 01/20/22 10:47 95 01/20/22 10:37 93 H 24 172/81 H 94 01/20/22 10:10 36.9 C 01/20/22 10:06 88 20 95 01/20/22 09:53 37.0 C 88 20 166/76 H 95 Laboratory Results Abnormal lab results 01/20/22 01/20/22 01/20/22 Range/Units 10:35 10:35 11:31 WBC 12.48 H (4.8-10.8) K/uL RBC 2.18 L (4.2-5.4) M/uL Hgb 7.2 L (12.0-16.0) g/dL Hct 21.8 L (37-47) % RDW Std Deviation 54.1 H (36.4-46.3) fL RDW Coeff of Michael 14.8 H (11.5-14.5) % Neut # (Auto) 10.73 H (1.4-6.5) K/uL Lymph # (Auto) 0.84 L (1.2-3.4) K/uL [place] # (Auto) 0.73 H (0.11-0.59) K/uL Immature Gran # (Auto) 0.05 H (0.00-0.02) K/uL BUN 24 H (6-23) mg/dl Creatinine 2.00 H (0.6-1.2) mg/dl Glucose 202 H (70-99(Fasting)) mg/dl Calcium 7.5 L (8.5-10.1) mg/dl Troponin I 0.11 H* (0-0.04) ng/ml Total Protein 5.6 L (6.0-8.3) gm/dl Albumin 2.9 L (3.4-5.0) gm/dl Urine Protein (Negative) Urine Glucose (UA) (Negative) Urine WBC (Auto) (0-5) /hpf U Epithel Cells (Auto) (0-5) /lpf Crossmatch See Detail 01/20/22 Range/Units 12:40 WBC (4.8-10.8) K/uL RBC (4.2-5.4) M/uL Hgb (12.0-16.0) g/dL Hct (37-47) % RDW Std Deviation (36.4-46.3) fL RDW Coeff of Michael (11.5-14.5) % Neut # (Auto) (1.4-6.5) K/uL Lymph # (Auto) (1.2-3.4) K/uL [place] # (Auto) (0.11-0.59) K/uL Immature Gran # (Auto) (0.00-0.02) K/uL BUN (6-23) mg/dl Creatinine (0.6-1.2) mg/dl Glucose (70-99(Fasting)) mg/dl Calcium (8.5-10.1) mg/dl Troponin I (0-0.04) ng/ml Total Protein (6.0-8.3) gm/dl Albumin (3.4-5.0) gm/dl Urine Protein 3+ H (Negative) Urine Glucose (UA) Trace H (Negative) Urine WBC (Auto) 5-10 H (0-5) /hpf U Epithel Cells (Auto) 10-20 H (0-5) /lpf Crossmatch Diagnostic Findings Chest X-Ray 01/20/22 10:06 XR chest 1V portable CLINICAL HISTORY: Dyspnea. COMPARISON STUDY: 12/26/2021 TECHNIQUE: 1 view of the chest FINDINGS: Single frontal view of the chest demonstrates the heart size to be mildly enlarged. There has been interval development of [id number] sized left pleural effusion with left lower lobe atelectasis/collapse. Early retrocardiac infiltrate cannot be excluded. There is also evidence for small right pleural effusion and right basilar atelectasis. Again, early right lower lobe infiltrate cannot be excluded. There is no evidence for vascular congestion. There is no ac [place] osseous pathology. IMPRESSION: 1. Interval development of bilateral pleural effusions, left greater than right. 2. Bilateral lower lobe atelectasis/collapse is also present, left greater than right. 3. Early lower lobe infiltrate/pneumonia cannot be excluded. ACT 112: Negative or not required by law. Electronically signed by: Sai Bain M.D. 01/20/2022 11:[address] 01/20/22 10:09 CT head/brain wo con CLINICAL HISTORY: BALTAZAR eval for bleed Technique: Contiguous axial CT images of the head were acquired from the base of the skull to the vertex without intravenous contrast administration. Images were viewed in brain, subdural and bone windows. Automated dose lowering techniques and/or adjustment according to patient size were utilized for this exam. Comparison: Comparison is made to CT head 12/26/2021 Findings: Areas of decreased attenuation are present in the periventricular and subcortical white matter bilaterally consistent with small vessel ischemic disease. Generalized cerebral volume loss with commensurate enlargement of the ventricles, sulci, and cisterns is also present. There are bilateral subdural mild hyperdensities measuring approximately 8 mm in thickness. The hernia from prior exam. Imaged portions of the paranasal sinuses and mastoid air cells are clear. The orbits appear normal. In the interval, there are bilateral postsurgical changes in the frontal lobes with overlying surgical sherita. Impression: Interval development of bilateral subdural mild hyperdensities measuring 8 mm. Bilateral yoandy holes are seen. These are favored to represent subacute appearance of subdural hematoma status post surgical decompression. ACT 112: Negative or not required by law. Electronically signed by: Guillermo Lowe M.D. 01/20/2022 11:05 AM Abdomen/Pelvis CT 01/20/22 11:26 CT abd pelvis wo con CLINICAL HISTORY: lower abd injury with Hgb7 eval for hematoma TECHNIQUE: Helical axial images of the abdomen and pelvis were obtained. Automated dose lowering techniques and/or adjustment according to patient size were utilized for this exam. This exam was performed without intravenous contrast. COMPARISON: Comparison is made to CT abdomen pelvis 12/12/2020 FINDINGS: Lower chest: Bilateral pleural effusions and underlying atelectasis are seen. Partial visualization cardiomegaly. Liver: Unremarkable. No focal lesions are seen. Gallbladder and biliary tree: Patient is status post cholecystectomy. No intra- or extrahepatic biliary ductal dilation. Pancreas: Unremarkable, no focal lesions. Spleen: Unremarkable. Adrenals: Unremarkable. Kidneys and ureters: Nonobstructive nephrolithiasis is seen. Bladder: Unremarkable. Reproductive organs: Unremarkable. Bowel: Unremarkable. Lymph nodes Retroperitoneal: Unremarkable. Mesenteric: Unremarkable. Pelvic: Unremarkable. Peritoneum: Normal. Vessels: Atherosclerotic calcifications are seen. Abdominal wall: Redemonstration of soft tissue density in the anterior midline abdominal wall, likely representing fluid along the umbilical hernia mesh. Right iliacus hematoma is no longer noted. Bones: Degenerative changes in the visualized spine. IMPRESSION: 1. No acute abnormalities are seen. In particular, no evidence of hematoma. Soft tissue stranding is seen in the lower abdomen. 2. Interval resolution of iliacus hematoma. Fluid is again seen in the midline abdomen, likely about a hernia mesh. ACT 112: Negative or not required by law. Electronically signed by: Guillermo Lowe M.D. 01/20/2022 12:28 PM Medications Administered Discontinued Medications Piperacillin Sod/Tazobactam Sod (Zosyn) 4.5 gm in 120 mls @ 240 mls/hr IV NOW ONE Stop: 01/20/22 11:57 Last Infusion: 01/20/22 12:44 Dose: 0 mls/hr Documented by: [id number] Admin: 01/20/22 12:03 Dose: 240 mls/hr Documented by: [id number] ECG Additional Comments: Sinus rhythm with occasional Premature ventricular complexes Nonspecific ST and T wave abnormality Abnormal ECG When compared with ECG of 26-DEC-2021 13:46, Premature ventricular complexes are now Present Vent. rate has increased BY 33 BPM Code Status & VTE Plan Code Status CODE: FULL VTE: SCDS, ambulation, VTE Prophylaxis Plan VTE Prophylaxis will be ordered: Yes Supervising Physician Co-Signing Physician Notes During face to face encounter, obtained history of present illness, and physical examination. Reviewed above note and agree with it. Discussed with patient and APC Brezovic plan of care. Patient agrees. Patient will be admitted for symptomatic anemia. will transfuse one unit of PRBC and monitor hemoglobin. PG Care Time/CCT Total # of Minutes Spent Total Time Spent with Patient: Total time spent is greater than 50% in coordination of care (as documented) at patient's floor/unit and/or counseling patient: Coding Level of Care Code 83916 Initial Inpt Care Lvl 3 Diagnoses Symptomatic anemia D64.9 Dyspnea R06.00 Chronic bilateral pleural effusions J90 Chronic kidney disease, stage 3 N18.3 Carotid artery stenosis I65.29 Dyslipidemia E78.5 Herpes labialis B00.1 Osteopenia M85.80 Hypothyroidism E03.9 Paroxysmal atrial fibrillation I48.0 Diabetes mellitus, type II E11.9 Chronic gastritis K29.50 Subdural hematoma S06.5X9A Pneumonia J18.9 Hypertension I10 Hypertension type: unspecified (1) Hypertension Hypertension type: unspecified Qualified Code(s): I10 - Essential (primary) hypertension
[2022-01-20] MEDS ORDERED: hydrALAZINE TAB 50 MG TAB PO STA (14:12)
[2022-01-20] MEDS ORDERED: LABETALOL HCL 200 MG TAB PO ONE (14:15)
[2022-01-20] MEDS ORDERED: ONDANSETRON INJ 2 MG/ML 2 ML VIAL IV PRN (14:41)
[2022-01-20] MEDS ORDERED: POVIDONE OP SCH (14:41)
[2022-01-20] MEDS ORDERED: DEXTROSE 50% 50 ML SYRINGE IV PRN (14:41)
[2022-01-20] MEDS ORDERED: GLUCOSE 40% GEL 15 GM TUBE PO PRN (14:41)
[2022-01-20] MEDS ORDERED: GLUCAGON FOR INJ 1 MG VIAL SQ PRN (14:41)
[2022-01-20] MEDS ORDERED: POLYETHYLENE (MIRALAX) 17 GM PACK PO PRN (14:41)
[2022-01-20] MEDS ORDERED: CARBOHYDRATES FOR HYPOGLYCEMIA PO PRN (14:41)
[2022-01-20] MEDS ORDERED: valACYclovir HCL 500 MG TABLET PO SCH (14:41)
[2022-01-20] MEDS ORDERED: GLUCOSE 10 TABS/TUBE PO PRN (14:41)
[2022-01-20] MEDS ORDERED: ACETAMINOPHEN 325 MG TAB PO PRN (14:41)
[2022-01-20] MEDS ORDERED: POLYVINYL ALCOHOL OP SCH (14:41)
[2022-01-20] MEDS ORDERED: hydrALAZINE HCL 20 MG/ML VIAL IV PRN (16:16)
[2022-01-20] MEDS: hydrALAZINE TAB 50 MG TAB PO SCH ×2 (16:25→21:53)
[2022-01-20] MEDS: LABETALOL HCL 200 MG TAB PO SCH ×2 (16:25→21:54)
[2022-01-20] MEDS: SODIUM BICARBONATE 650 MG TAB PO SCH ×2 (16:26→21:53)
[2022-01-20] MEDS: DIGOXIN 0.125 MG TAB PO SCH (16:26)
[2022-01-20] MEDS: INSULIN ASPART PER UNIT SC SCH ×2 (17:09→21:51)
[2022-01-20] MEDS: ALBUTEROL 0.5% NEB SOLN 2.5 MG/0.5 ML VIAL NEB SCH (19:08)
[2022-01-20 20:39] LABS: Iron 42 mcg/dl (35-150); Total Iron Binding Cap Calc 217 mcg/dl (250-450); Transferrin (FE) Percent Satur 19 % (15-50); Unsaturated Iron Binding Cap 175 mcg/dl (155-355)
[2022-01-20] MEDS: PIPERACILLIN/TAZOBACTAM 3.375 GM in DEXTROSE 5% 100 ML IV SCH (21:51)
[2022-01-20] MEDS: levETIRAcetam 500 MG TAB PO SCH (21:54)
[2022-01-20] MEDS: PANTOprazole 40 MG in SYRINGE 0 ML IV SCH (21:56)
--- NOTE | 2022-01-20 23:07 | Electrocardiogram Report ---
Test Reason : Blood Pressure : / mmHG Vent. Rate : 093 BPM Atrial Rate : 093 BPM P-R Int : 156 ms QRS Dur : 080 ms QT Int : 362 ms P-R-T Axes : 041 -08 180 degrees QTc Int : 450 ms Sinus rhythm with occasional Premature ventricular complexes Nonspecific ST and T wave abnormality Abnormal ECG When compared with ECG of 26-DEC-2021 13:46, Premature ventricular complexes are now Present Vent. rate has increased BY 33 BPM Confirmed by Jordan Rasheed ([id number]) on 01/20/2022 11:07:32 PM Referred By: Bro Neil Confirmed By:Jordan Rasheed
[2022-01-21 06:40] LABS: Basophils # (auto) 0.02 K/uL (0-0.2); Basophils % (auto) 0.2 %; Eosinophils # (auto) 0.43 K/uL (0-0.5); Eosinophils % (auto) 3.4 %; Hematocrit (blood only) 29.2 % (37-47); Hemoglobin 9.5 g/dL (12.0-16.0); Immature Granulocytes # (auto) 0.02 K/uL (0.00-0.02); Immature Granulocytes % (auto) 0.2 %; Lymphocytes # (auto) 0.53 K/uL (1.2-3.4); Lymphocytes % (auto) 4.2 %; Mean Corpuscular Hemoglobin 31.9 pg (25-34); Mean Corpuscular Hgb Conc 32.5 g/dL (32-36); Monocytes # (auto) 0.72 K/uL (0.11-0.59); Monocytes % (auto) 5.7 %; Neutrophils # (auto) 10.87 K/uL (1.4-6.5); Neutrophils % (auto) 86.3 %; Platelet Count 241 K/uL (130-400); RDW Coefficient of Variation 15.9 % (11.5-14.5); RDW Standard Deviation 55.7 fL (36.4-46.3); Red Blood Count 2.98 M/uL (4.2-5.4); White Blood Count 12.59 K/uL (4.8-10.8)
[2022-01-21] MEDS: LEVOTHYROXINE SODIUM 137 MCG TABLET PO SCH (06:42)
[2022-01-21 06:59] LABS: BUN Creatinine Ratio 10.8 (10-20); Calcium 7.5 mg/dl (8.5-10.1); Creatinine Clr Calc Pharmacy 18.1 ml/min; Est GFR (African American) 25.7 ml/min; Est GFR (Non-African American) 22.1 ml/min; Potassium 3.8 mmol/L (3.5-5.1)
[2022-01-21 07:00] LABS: Creatinine Clr Calc Pharmacy 18.5 ml/min; Est GFR (African American) 26.3 ml/min; Est GFR (Non-African American) 22.7 ml/min
[2022-01-21 07:09] LABS: Troponin I 0.09 ng/ml (0-0.04)
[2022-01-21 07:16] LABS: Ferritin 87.7 ng/ml (8-388)
[2022-01-21] MEDS: ALBUTEROL 0.5% NEB SOLN 2.5 MG/0.5 ML VIAL NEB SCH ×2 (07:19)
[2022-01-21] MEDS: CHOLECALCIFEROL 1,000 UNITS 25 MCG TAB PO SCH (08:19)
[2022-01-21] MEDS: dilTIAZem ER 120 MG CAPCR PO SCH (08:19)
[2022-01-21] MEDS: ATORVASTATIN 40 MG TAB PO SCH (08:19)
[2022-01-21] MEDS: LABETALOL HCL 200 MG TAB PO SCH ×3 (08:20→21:12)
[2022-01-21] MEDS: levETIRAcetam 500 MG TAB PO SCH ×2 (08:20→21:12)
[2022-01-21] MEDS: DULoxetine HCL 30 MG CAP PO SCH (08:21)
[2022-01-21] MEDS: hydrALAZINE TAB 50 MG TAB PO SCH ×3 (08:21→21:12)
[2022-01-21] MEDS: VALSARTAN 80 MG TAB PO SCH (08:21)
[2022-01-21] MEDS: SODIUM BICARBONATE 650 MG TAB PO SCH ×3 (08:21→21:11)
[2022-01-21] MEDS: PANTOprazole 40 MG in SYRINGE 0 ML IV SCH ×2 (08:22→21:12)
[2022-01-21] MEDS: INSULIN HUMAN NPH SQ SCH (08:24)
[2022-01-21] MEDS: INSULIN ASPART PER UNIT SC SCH ×4 (08:25→21:33)
[2022-01-21] MEDS: PIPERACILLIN/TAZOBACTAM 3.375 GM in DEXTROSE 5% 100 ML IV SCH ×2 (08:41→21:13)
[2022-01-21] MEDS ORDERED: PANTOprazole 40 MG TAB PO SCH (09:00)
[2022-01-21] MEDS ORDERED: ALBUTEROL 0.5% NEB SOLN 2.5 MG/0.5 ML VIAL NEB PRN (09:30)
--- NOTE | 2022-01-21 15:17 | Electrocardiogram Report ---
Test Reason : Blood Pressure : / mmHG Vent. Rate : 097 BPM Atrial Rate : 098 BPM P-R Int : 172 ms QRS Dur : 080 ms QT Int : 348 ms P-R-T Axes : 053 058 240 degrees QTc Int : 441 ms Sinus rhythm with occasional Premature ventricular complexes and Fusion complexes Abnormal ECG When compared with ECG of 20-JAN-2022 10:02, Fusion complexes are now Present Confirmed by Rell Evans ([id number]) on 01/21/2022 3:17:04 PM Referred By: Bro Neil Confirmed By:Rell Evans
--- NOTE | 2022-01-21 21:01 | Hospitalist Progress Note ---
Date of Service January 21, 2022 Assessment & Plan (1) Symptomatic anemia: Plan: Current HGB 7.2- discharge from [facility] HGB 8.5- no evidence of acute blood loss and negative GRACIELA - BUN stable for patient at baseline - Iron studies sent- does not appear to be iron def. anemia. - blood transfusion just starting at time of draw - Transfuse 1 unit of PRBC- follow HGB - Hold Eliquis for tonight- last dose 01/19/22 in afternoon - ASA hold for now- restart in morning likely - Protonix 40mg IV BID for 24-48 hours while following HGB -will discuss with GI, low likelihood of GI bleed. will likely need to restart eliquis at discharge vs short term hold and monitor hemoglobin. (2) Dyspnea: Plan: Multifactorial with differential to include- Anemia, bilateral plueral effusions, pneumonia vs. atelectasis - treat each and follow pleural effusions - may need diuretic tonight or in the morning - BNP eleavted. (3) Pneumonia: Plan: Left lower lobe opacity vs atelectasis - WBC 12, NLR 5:1 - Continue Zosyn IV and trend biomarkers - PCT pending - Previously completed Zosyn 5 day course 01/09-01/14 - Appears more consistent with atelectasis however with recent admission with ICU stay will treat - MRSA swab pending as well recent normal LV EF. will continue to diurese in AM, consider pulm consult for thoracocenthesis. (4) Hypertension: Plan: Poorly controlled - Goal would be less <160 overnight and nursing home with CKD should be <130 - Give her dose of her Hydralazine and Labetalol now - PRN Hydralazine for SBP >180 not resolved with oral dosing - She has just had her medications adjusted at [facility] following reported hypertensive work-up by their credit risk analyst - Follow clinical response (5) Subdural hematoma: Plan: Subacute from [id number] - no interval increase appreciated by radiologist - Follow neurological exams (6) Chronic gastritis: Plan: Will add Protonix 40mg IV BID - ? 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[facility] - 2.2- now 2.0 - Follow avoid further nephrotoxic medications (9) Carotid artery stenosis: Plan: CEA right side - Continue statin - HGB stable- restart asa in morning (10) Dyslipidemia: Plan: Continue statin (11) Herpes labialis: Plan: Continue Valacyclovir (12) Osteopenia: Plan: remains with low serum calcium - continue with cholecalciferol (13) Hypothyroidism: Plan: Synthroid just increased to 137 mcg within last 3 weeks - PCP appointment on Thursday (14) Paroxysmal atrial fibrillation: Plan: Currently in NSR - Hold Eliquis for now and follow HGB/HCT and symptomatology - Continue with Dilt and Dig (15) Diabetes mellitus, type II: Plan: She was recently placed on NPH 4 units every morning - will continue and add on sliding scale coverage CF 20 with ratio 1:15 Admission and Anticipated Discharge Date Admission Date: January 20, 2022 Subjective Patient reports no new symptoms. she reports she is breathing better. Review of Systems Review of Systems: All systems reviewed & are unremarkable except as noted in HPI & below Physical Exam Physical Exam: General: awake, alert, no apparent distress, poor short term memory re-occurrence Head: sherita to multiple sites on scalp, intact no drainage ENT: PERRLA, EOMI, no pharyngeal exudate, mucous membranes moist Neuro: AAO x 3, speech clear and appropriate, strength intact bilaterally 5/5, sensation intact and equal all extremities and dermatomes, no pronator drift Chest: equal rise and fall of the chest, no accessory muscle use, decreased in the bases bilaterally with end expiratory wheeze, scattered crackles in base left Cardiac: Regular rate and rhythm, telemetry reviewed-NSR, skin warm dry, cap refill <3 seconds, peripheral pules +2 no JVD, Trace bilateral lower extremity edema to shins and ankles GI: NABS x 4 quadrants, soft, nontender to palpation, no rebound, guarding or tenderness, bruising noted to left lower abdominal quad : Spontaneously voiding, no pain, no CVA tenderness, Extremities: Normal inspection, no peripheral edema or erythema, calfs nontender to palpation Psych: Normal mood and affect Results & Data Results & Data ([facility]) Vital Signs (Past 12 Hours) Vital Signs Temp Pulse Resp BP BP Pulse Ox 01/21/22 19:14 36.8 C 78 18 152/63 H 92 01/21/22 15:04 36.6 C 66 16 142/66 H 95 PG Care Time/CCT Total # of Minutes Spent Total Time Spent with Patient: Total time spent is greater than 50% in coordination of care (as documented) at patient's floor/unit and/or counseling patient: Coding Level of Care Code 37964 Subseq Hosp Care Lvl 2 Diagnoses Symptomatic anemia D64.9 Dyspnea R06.00 Pneumonia J18.9 Hypertension I10 Hypertension type: unspecified Subdural hematoma S06.5X9A Chronic gastritis K29.50 Chronic bilateral pleural effusions J90 Chronic kidney disease, stage 3 N18.3 Carotid artery stenosis I65.29 Dyslipidemia E78.5 Herpes labialis B00.1 Osteopenia M85.80 Hypothyroidism E03.9 Paroxysmal atrial fibrillation I48.0 Diabetes mellitus, type II E11.9 (1) Hypertension Hypertension type: unspecified Qualified Code(s): I10 - Essential (primary) hypertension
[2022-01-22] MEDS: LEVOTHYROXINE SODIUM 137 MCG TABLET PO SCH (05:52)
[2022-01-22] MEDS: PIPERACILLIN/TAZOBACTAM 3.375 GM in DEXTROSE 5% 100 ML IV SCH (07:40)
[2022-01-22] MEDS: DULoxetine HCL 30 MG CAP PO SCH (07:41)
[2022-01-22] MEDS: SODIUM BICARBONATE 650 MG TAB PO SCH ×2 (07:41→13:48)
[2022-01-22] MEDS: PANTOprazole 40 MG in SYRINGE 0 ML IV SCH (07:41)
[2022-01-22] MEDS: levETIRAcetam 500 MG TAB PO SCH (07:41)
[2022-01-22] MEDS: hydrALAZINE TAB 50 MG TAB PO SCH ×2 (07:42→13:48)
[2022-01-22] MEDS: LABETALOL HCL 200 MG TAB PO SCH ×2 (07:42→13:48)
[2022-01-22] MEDS: dilTIAZem ER 120 MG CAPCR PO SCH (07:42)
[2022-01-22] MEDS: CHOLECALCIFEROL 1,000 UNITS 25 MCG TAB PO SCH (07:42)
[2022-01-22] MEDS: ATORVASTATIN 40 MG TAB PO SCH (07:43)
[2022-01-22] MEDS: VALSARTAN 80 MG TAB PO SCH (07:43)
[2022-01-22 08:30] LABS: Basophils # (auto) 0.01 K/uL (0-0.2); Basophils % (auto) 0.1 %; Eosinophils # (auto) 0.65 K/uL (0-0.5); Eosinophils % (auto) 6.8 %; Hematocrit (blood only) 27.5 % (37-47); Hemoglobin 9.4 g/dL (12.0-16.0); Immature Granulocytes # (auto) 0.02 K/uL (0.00-0.02); Immature Granulocytes % (auto) 0.2 %; Lymphocytes # (auto) 1.03 K/uL (1.2-3.4); Lymphocytes % (auto) 10.8 %; Mean Corpuscular Hemoglobin 33.2 pg (25-34); Mean Corpuscular Hgb Conc 34.2 g/dL (32-36); Mean Corpuscular Volume 97.2 fL (80-100); Mean Platelet Volume 9.8 fL (7.4-10.4); Monocytes # (auto) 0.49 K/uL (0.11-0.59); Monocytes % (auto) 5.2 %; Neutrophils % (auto) 76.9 %; Platelet Count 251 K/uL (130-400); RDW Coefficient of Variation 15.4 % (11.5-14.5); RDW Standard Deviation 54.6 fL (36.4-46.3); Red Blood Count 2.83 M/uL (4.2-5.4)
[2022-01-22] MEDS: INSULIN ASPART PER UNIT SC SCH ×2 (08:35→12:01)
[2022-01-22] MEDS: INSULIN HUMAN NPH SQ SCH (08:35)
[2022-01-22 08:47] LABS: BUN Creatinine Ratio 10.1 (10-20); Calcium 6.8 mg/dl (8.5-10.1); Est GFR (African American) 23.7 ml/min; Est GFR (Non-African American) 20.4 ml/min; Magnesium 1.4 mg/dl (1.7-2.4); Potassium 3.6 mmol/L (3.5-5.1)
--- NOTE | 2022-01-22 15:23 | XRay Report ---
XR chest 2V PA/lateral HISTORY: 81 years-old Female hypoxia acute hypoxia COMPARISON: Chest radiograph 01/20/2022 TECHNIQUE: PA and lateral views of the chest FINDINGS: Layering pleural effusions with mild bibasilar dependent consolidation. There is slightly improved ae ration of the lung bases with decrease size of left pleural effusion. Cardiac silhouette is enlarged. Atherosclerotic plaque of the thoracic aorta. No pneumothorax or overt pulmonary edema. Degenerative changes of the shoulders and spine. Surgical clips of the upper abdomen. Surgical anchor of the left humeral head. IMPRESSION: 1. Cardiomegaly without pulmonary edema. 2. Layering pleural effusions with mildly improved bibasilar opacities. The left pleural effusion has also mildly decreased in size. ACT 112: Negative or not required by law. The above report was generated using voice recognition software. It may contain grammatical, syntax o r spelling errors. Electronically signed by: Devon Orosco M.D. 01/22/2022 3:21 PM
[2022-01-22] MEDS: DIGOXIN 0.125 MG TAB PO SCH (15:32)
--- NOTE | 2022-01-26 21:47 | Discharge Summary ---
Date of Service January 22, 2022 Admission HPI Per Admitting Provider 81 YOF with past medical history of: CKD III, HTN, DM II, hypocalcemia, Vitamin D Defficiency, hypothyroid, herpes labialis, afib (on Eliquis), subdural hematoma, resting tremor, anemia, PAD, chronic gastritis. Patient comes to the EMD this morning for concerns of dyspnea upon awakening this morning. She endorses that she has had a cough for the past week and it is mostly a tickle feeling in her throat. She is coughing up what she reports as clear sputum. She was treated at [facility] from 12-26-21-01/15/22 for sudural hematoma requiring decompressive craniotomy, this stay was complicated by uncontrolled hypertensi on, AWILDA on CKD, hyponatremia and aspiration pneumonia treated with Zosyn at that time and completed 5 day course. She was discharged home with home health and reports that she has been doing well with this. 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 She had CXR done, CT scan of head, and CT scan of abdomen and pelvis. Her CT scan of head continues to show 8 x8 bilateral subdural hematomas, CXR reveals bilateral pleural effusion with left lower lobe atelectasis vs. pneumonia, CT scan of abdomen and pelvis with small fluid collection over her mesh. Patient was given 1 unit of PRBC by EMD for symptomatic anemia, she was started on Zosyn for concerns of pneumonia. Will admit patient, continue to trend her Troponin I, follow her HGB/HCT, Protonix IV bid, continue abx coverage follow biomarkers, follow her renal function and response to the above. Patient COVID test on admission is: NEGATIVE Principal Diagnosis symptomatic anemia Discharge Exam General: awake, alert, no apparent distress, poor short term memory re- occurrence Head: sherita to multiple sites on scalp, intact no drainage ENT: PERRLA, EOMI, no pharyngeal exudate, mucous membranes moist Neuro: AAO x 3, speech clear and appropriate, strength intact bilaterally 5/5, sensation intact and equal all extremities and dermatomes, no pronator drift Chest: equal rise and fall of the chest, no accessory muscle use, decreased in the bases bilaterally with end expiratory wheeze, scattered crackles in base left Cardiac: Regular rate and rhythm, telemetry reviewed-NSR, skin warm dry, cap refill <3 seconds, peripheral pules +2 no JVD, Trace bilateral lower extremity edema to shins and ankles GI: NABS x 4 quadrants, soft, nontender to palpation, no rebound, guarding or tenderness, bruising noted to left lower abdominal quad : Spontaneously voiding, no pain, no CVA tenderness, Extremities: Normal inspection, no peripheral edema or erythema, calfs nontender to palpation Psych: Normal mood and affect Discharge Data Allergies Allergy/AdvReac Type Severity Reaction Status Date / Time adhesive Allergy Mild red/blistered Verified 01/24/22 14:59 skin latex Allergy Mild CONTACT Verified 01/24/22 14:59 DERMATITIS acetaminophen [From Percocet] Allergy Unknown Unknown Verified 01/24/22 14:59 carbidopa Allergy Unknown Unknown Verified 01/24/22 14:59 carvedilol Allergy Unknown pt unsure, Verified 01/24/22 14:59 listed prior gabapentin Allergy Unknown Unknown Verified 01/24/22 14:59 ranitidine [From Zantac] Allergy Unknown Unknown Verified 01/24/22 14:59 omeprazole AdvReac Intermediate HALLUCINATI Verified 01/24/22 14:59 ONS oxycodone AdvReac Intermediate itching Verified 01/24/22 14:59 phenobarbital AdvReac Intermediate HALLUCINATI Verified 01/24/22 14:59 ONS cephalexin AdvReac Mild DIARRHEA Verified 01/24/22 14:59 fentanyl AdvReac Mild altered Verified 01/24/22 14:59 mental status levofloxacin AdvReac Mild DIARRHEA Verified 01/24/22 14:59 meperidine AdvReac Mild HEADACHES Verified 01/24/22 14:59 metformin AdvReac Mild DIARRHEA Verified 01/24/22 14:59 Sulfa (Sulfonamide AdvReac Mild DIARRHEA Verified 01/24/22 14:59 Antibiotics) fluoxetine AdvReac Unknown Unknown Verified 01/24/22 14:59 Consultations 01/20/22 13:31 ED Decision to Admit Stat Ordered Studies 01/20/22 10:09 CT head/brain wo con Stat 01/20/22 11:26 CT abd pelvis wo con Stat Hospital Course (1) Symptomatic anemia: Current HGB 7.2- discharge from [facility] HGB 8.5- no evidence of acute blood loss and negative GRACIELA - BUN stable for patient at baseline - Iron studies sent- does not appear to be iron def. anemia. - blood transfusion just starting at time of draw - Transfuse 1 unit of PRBC- follow HGB - Hold Eliquis for tonight- last dose 01/19/22 in afternoon - ASA hold for now- restart in morning likely - Protonix 40mg IV BID for 24-48 hours while following HGB -will discuss with GI, low likelihood of GI bleed. need to restart eliquis after short term hold will monitor hemoglobin, will defer to PCP as to when patient should resume anticoagulation. (2) Dyspnea: Multifactorial with differential to include- Anemia, bilateral plueral effusions, pneumonia vs. atelectasis - treat each and follow pleural effusions - may need diuretic tonight or in the morning - BNP elevated. (3) Pneumonia: Left lower lobe opacity vs atelectasis - WBC 12, NLR 5:1 - Continue Zosyn IV and trend biomarkers - PCT pending - Previously completed Zosyn 5 day course 01/09-01/14 - Appears more consistent with atelectasis however with recent admission with ICU stay will treat - MRSA swab pending as well recent normal LV EF. consider pulm consult for thoracocenthesis as an outpatient. 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- now 2.0 - Follow avoid further nephrotoxic medications (9) Carotid artery stenosis: CEA right side - Continue statin - HGB stable- restart asa in morning (10) Dyslipidemia: Continue statin (11) Herpes labialis: Continue Valacyclovir (12) Osteopenia: remains with low serum calcium - continue with cholecalciferol (13) Hypothyroidism: Synthroid just increased to 137 mcg within last 3 weeks - PCP appointment on Thursday (14) Paroxysmal atrial fibrillation: Currently in NSR - Hold Eliquis for now and follow HGB/HCT and symptomatology - Continue with Dilt and Dig (15) Diabetes mellitus, type II: She was recently placed on NPH 4 units every morning - will continue and add on sliding scale coverage CF 20 with ratio 1:15 Total Time Total Time Spent Total Time Spent (In Minutes): 32 Discharge Plan Discharge Items Patient Disposition: Home - Self-Care Reason For Visit: SOB,ANEMIA,PNEUMONIA Discharge Diagnosis: Pneumonia Activity: Resume your previous activity Non-emergency contact: Primary Care Provider Call non-emergency contact if: you have any medication questions Follow-up/Referrals: Bro Neil CRNP [Primary Care Provider] - Diet: Carb Consistent or DM2 Addtl Attending Provider Instructions: You have been hospitalized for an acute medical problem. During your stay at [facility], we have made an effort to correct the problem that brought you to the hospital while keeping you as comfortable as possible. Medications were used to bring your condition under control and your discharge instructions will include directions for any medications you should take after leaving the hospital. Please make sure you see your Primary Care Provider as part of your follow up plan. Recommend followup with your PCP this week. May require repeat blood count. May require followup with GI specialist if counts conitnue to drop. In the short term, ok to stop blood thinning medicine. However, out of the 2 bad options, bleeding vs stroke, would prefer bleeding as we can treat with transfusions. Blood thinning will likely need to be resumed in the next days to weeks. Your shortness of breath was likely due to an infection. Will continue antibiotics. Pending Studies at Discharge: No Stand-Alone Forms: My [facility] [employer], Smoking Cessation Medications and DC Order Prescriptions: New amoxicillin-pot clavulanate [Augmentin] 500-125 mg tablet 1 tab PO BID Qty: 10 RF: 0 Continued atorvastatin [Lipitor] 40 mg tablet 40 mg PO QAM Qty: 90 RF: 1 duloxetine [Cymbalta] 30 mg capsule,delayed release(DR/EC) 30 mg PO QAM Qty: 90 RF: 1 digoxin [Lanoxin] 125 mcg (0.125 mg) tablet 125 mcg PO 3XWK Qty: 30 RF: 3 rabeprazole 20 mg tablet,delayed release (DR/EC) 20 mg PO DAILY Qty: 90 RF: 1 valacyclovir 1 gram tablet 1,000 mg PO .COMPLEX Qty: 30 RF: 2 FreshKote 2.7-2 % drops 1 drp ophthalmic (eye) .COMPLEX Qty: 10 RF: 0 tretinoin [Retin-A] 0.05 % cream 1 applic topical .COMPLEX Qty: 45 RF: 0 labetalol 200 mg tablet 200 mg PO TID Qty: 60 RF: 2 sodium bicarbonate 650 mg tablet 650 mg PO TID Qty: 30 RF: 0 valsartan 160 mg tablet 160 mg PO DAILY Qty: 90 RF: 3 levothyroxine 137 mcg capsule 137 mcg PO DAILY RF: 0 levetiracetam [Keppra] 250 mg tablet 500 mg PO BID Qty: 180 RF: 1 hydralazine 100 mg tablet 100 mg PO TID 30 Days Qty: 90 RF: 1 diltiazem HCl [Tiazac] 120 mg capsule,extended release 24 hr 120 mg PO DAILY Qty: 60 RF: 11 acetaminophen [Tylenol] 325 mg tablet 650 mg PO HS PRN (Reason: pain) RF: 0 Restasis 0.05 % dropperette 1 drp ophthalmic (eye) BID RF: 0 ascorbic acid (vitamin C) [Vitamin C] 500 mg Tablet 500 mg PO QAM RF: 0 cholecalciferol (vitamin D3) [Vitamin D3] 1,000 unit capsule 1,000 units PO QAM RF: 0 multivitamin [Daily Multi-Vitamin] Tablet 1 tab PO QAM RF: 0 Discontinued Eliquis 2.5 mg tablet 2.5 mg PO BID Qty: 90 RF: 1 aspirin [Aspirin Low Dose] 81 mg Tablet,Delayed Release (Dr/Ec) 81 mg PO HS RF: 0 No Action Humulin N NPH U-100 Insulin 100 unit/mL suspension 5 unit subcut TID RF: 0 Discharge Orders: Discharge Order (Routine); Ordered 01/22/22 Ordered By: Jimy Ortega Admission Data Admit Date/Time: 01/20/22 13:36 Attending Provider: Jimy Ortega Admit Provider: Jimy Ortega Primary Care Provider: Bro Neil Other Interventions: Discharge Summary Assessment (RN) Last Done: 01/22/22 15:56 Coding Level of Care Code D/C DAY MANAGEMENT >30 MINS Diagnoses Symptomatic anemia D64.9 Dyspnea R06.00 Pneumonia J18.9 Hypertension I10 Hypertension type: unspecified Subdural hematoma S06.5X9A Chronic gastritis K29.50 Chronic bilateral pleural effusions J90 Chronic kidney disease, stage 3 N18.3 Carotid artery stenosis I65.29 Dyslipidemia E78.5 Herpes labialis B00.1 Osteopenia M85.80 Hypothyroidism E03.9 Paroxysmal atrial fibrillation I48.0 Diabetes mellitus, type II E11.9
== END 2022-01-22 16:55 | disposition home or self-care (01) | DRG 811 ==
LOC: ED 09:45 → 2N 13:36